=== PATIENT | female | born 1955 | race Caucasian/White ===

== ENCOUNTER → 2017-08-18 10:30 | Outpatient (CLI) | payer OTHER, SELFPAY ==
[2017-08-23 14:00] LABS: HPV Reflexed? NOT INDICATED
== END ==
PROVIDERS: Family Provider Family Medicine; PCP Family Medicine; Visit Provider Obstetrics & Gynecology
DX: Z12.4 Encounter for screening for malignant neoplasm of cervix (principal)
CPT/HCPCS: 88175; G0145

== ENCOUNTER → 2017-09-18 09:44 | Outpatient (CLI) | payer OTHER, SELFPAY ==
--- NOTE | 2017-09-18 09:47 | HPBI_ITS ---
MAMMOGRAPHY - BILATERAL SCREENING REASON FOR EXAM: Female, 62 years old. Routine annual screening examination. PERTINENT HISTORY: Grandmother with breast cancer. TECHNIQUE: Digital bilateral breast jesús (3D mammographic acquisition) in the CC and MLO projections. 2-D mediolateral oblique (MLO) and craniocaudad (CC) views of both breasts were obtained. CAD: Full Field Digital Mammography with Computer Added Detection was performed. COMPARISON: Comparison is made with prior study dated June 27, 2014 and June 20, 2013. FINDINGS: Breast Composition: There are scattered areas of fibroglandular density. There are no dominant masses or suspicious calcifications. No other significant abnormalities are identified. There has been no significant change since the prior study. HPBI/SCREENING MAMM (CAD), BILAT IMPRESSION: Stable bilateral screening mammogram. Yearly follow-up mammogram recommended. (A) ASSESSMENT CATEGORY: BIRADS Category 1: Negative. A letter regarding these results will be sent to the patient by the facility within 30 days. Approximately 10% of breast cancers are not detected by mammography. A normal mammogram should not delay biopsy of a clinically suspicious abnormality. [id number] Electronically Signed: Alfie Barrera MD at 11:31 EST Tel [phone], Service support ,
== END ==
PROVIDERS: Family Provider Family Medicine; PCP Family Medicine; Visit Provider Obstetrics & Gynecology
DX: Z12.31 Encounter for screening mammogram for malignant neoplasm of breast (principal)
CPT/HCPCS: 77063; 77067

== ENCOUNTER → 2018-10-24 | Outpatient (CLI) | payer OTHER, SELFPAY ==
[2018-10-29 10:13] LABS: HPV Reflexed? NOT INDICATED
== END | disposition home or self-care (01) ==
PROVIDERS: Visit Provider Obstetrics & Gynecology
DX: Z12.4 Encounter for screening for malignant neoplasm of cervix (principal)
CPT/HCPCS: 88175; G0145

== ENCOUNTER → 2018-11-20 | Outpatient (CLI) | payer OTHER, SELFPAY ==
--- NOTE | 2018-11-20 12:38 | BI_ITS ---
MAMMOGRAPHY - BILATERAL SCREENING REASON FOR EXAM: Female, 63 years old. Routine annual screening examination. PERTINENT HISTORY: Grandmother with breast cancer. TECHNIQUE: Digital bilateral breast jesús (3D mammographic acquisition) in the CC and MLO projections. 2-D mediolateral oblique (MLO) and craniocaudad (CC) views of both breasts were obtained. CAD: Full Field Digital Mammography with Computer Added Detection was performed. COMPARISON: Comparison is made with prior study dated September 18, 2017 and June 27, 2014. FINDINGS: Breast Composition: There are scattered areas of fibroglandular density. There are no dominant masses or suspicious calcifications. No other significant abnormalities are identified. There has been no significant change since the prior study. BI/SCREENING MAMM (CAD), BILAT IMPRESSION: Stable bilateral screening mammogram. Yearly follow-up mammogram recommended. (A) ASSESSMENT CATEGORY: BIRADS Category 1: Negative. A letter regarding these results will be sent to the patient by the facility within 30 days. Approximately 10% of breast cancers are not detected by mammography. A normal mammogram should not delay biopsy of a clinically suspicious abnormality. [id number] Electronically Signed: Alfie Barrera, at 14:18 EDT , Service support ,
== END | disposition home or self-care (01) ==
LOC: OPBI 12:36
PROVIDERS: Family Provider Family Medicine; PCP Family Medicine; Referring Provider Obstetrics & Gynecology; Visit Provider Obstetrics & Gynecology
DX: Z12.31 Encounter for screening mammogram for malignant neoplasm of breast (principal)
CPT/HCPCS: 77063; 77067

== ENCOUNTER 2018-12-05 12:13 | Emergency (ER) | payer OTHER, SELFPAY ==
[2018-12-05 12:14] VITALS: BP 221/117; PULSE 107; RESP 24; TEMP 36.8; O2SAT 96; BMI 55.7
[2018-12-05 12:28] VITALS: O2SAT 97
--- NOTE | 2018-12-05 12:29 | EKG12_ITS ---
Test Reason : SOB Blood Pressure : / mmHG Vent. Rate : 090 BPM Atrial Rate : 576 BPM P-R Int : 000 ms QRS Dur : 088 ms QT Int : 360 ms P-R-T Axes : 000 -04 019 degrees QTc Int : 440 ms Normal sinus rhythm Normal ECG Confirmed by LELA VARGAS ([id number]), publication editor JIMBO LORENZO ([id number]) on 12/13/2018 9:25:47 AM Referred By: BERNADETTE Confirmed By:LELA VARGAS
--- NOTE | 2018-12-05 12:32 | RAD_ITS ---
STUDY: X-RAY CHEST REASON FOR EXAM: Female, 63 years old. Stress of breath/dyspnea. Lower extremity edema. TECHNIQUE: Single AP portable view of the chest. COMPARISON: Comparison is made with prior study dated January 29, 2014. FINDINGS: EKG electrodes are seen. There is evidence of vascular congestion and mild degree of CHF. There is no demonstrated pleural abnormality. There is mild cardiac enlargement. Normal mediastinum and laura. Normal visualized pulmonary arteries. Normal visualized aortic arch and descending thoracic aorta. Normal visualized thoracic spine. Normal visualized ribs, clavicles, and shoulders. There is no demonstrated abnormality of the visualized soft tissue structures of the upper abdomen. RAD/Chest 1 View (Portable) IMPRESSION: Vascular congestion and mild CHF. Mild cardiomegaly. Electronically Signed: Alfie Barrera, at 13:00 EDT , Service support ,
[2018-12-05 12:35] VITALS: BP 136/109; PULSE 99; RESP 20; O2SAT 96
[2018-12-05 13:03] LABS: Absolute Lymphocyte Count 2.57 X10^3/ul (0.83-4.51); Absolute Neutrophil Count 4.6 X10^3/uL (2.0-7.7); Basophil# 0.02 X10^3/uL; Basophil% 0.3 % (0-1); Eosinophil# 0.21 X10^3/uL; Eosinophils% 2.6 % (0-5); Hematocrit 39.6 % (37-47); Hemoglobin 12.5 g/dl (12.0-15.0); Lymphocyte # 2.57 X10^3/ul (4.0); Lymphocyte % 32.2 % (19-41); Mean Corp Hgb Conc 31.6 g/gl (32-36); Mean Corpuscular Hgb 26.8 pg (27.0-32.0); Monocyte# 0.56 X10^3/uL; Neutrophil # 4.57 X10^3/uL (2.7-7.7); Neutrophil % 57.4 % (47-70); Platelet Count 252 K/mm3 (150-450); RBC Distribution Width CV 13.7 % (11.6-14.6); RBC Distribution Width SD 41.9 fl (35.1-43.9); Red Blood Count 4.66 M/mm3 (4.2-5.4)
[2018-12-05 13:07] LABS: POSITIVE COUNT NO; POSITIVE DIFFERENTIAL NO; POSITIVE MORPHOLOGY NO
[2018-12-05 13:30] LABS: BNP,B-Type NATRIURETIC PEPTIDE 67.8 pg/mL (0-100)
--- NOTE | 2018-12-05 13:42 | ED.DCSUM_ITS ---
- ER Visit Summary Date of Service: 12/05/18 Chief Complaint: Shortness of breath History of Present Illness: The patient is a [address] Walter Langley. She reports she has shortness of breath began 3 days ago. Is gradually gotten worse. States that she noticed that she is short of breath with exertion last week walking up inclines. Now she is short of breath even walking around the house. She denies any paroxysmal nocturnal dyspnea. However, she does report she had swelling in her legs bilaterally for the past week that is been gradually increasing. She notes a 7 pound weight gain in the past week. She has never had anything like this before. Patient denies any fever or chills. She denies chest pain. She has a chronic cough that is unchanged. Physical Examination: Vitals: Stable. Afebrile. General: Well-nourished and well-developed. Head: Normocephalic atraumatic. Neck: Supple, no lymphadenopathy. No JVD. Nontender. Cardiovascular: Regular rate and rhythm. No murmurs. Respiratory: No respiratory distress. Clear to auscultation bilaterally. Abdominal: Soft, nontender, nondistended, normal bowel sounds. No guarding, rebound, or peritoneal signs. Back: Nontender. Extremities: Nontender, 2+ edema in her lower extremity bilaterally. Skin: Normal color, no rash. Neurologic: Alert and oriented ?3. Cranial nerves II through XII are intact. Normal strength and sensation. Psych: Normal affect. Test Results: EKG is sinus at [address] changes. CBC is normal. Chest x-ray shows cardia megaly, vascular congestion, and mild CHF. BMP is normal. LFTs are normal. Troponin is negative. PT KETTLE COORDINATOR is 67.8. C Emergency Department Course and Treatment: Patient is resting comfortably. She was given a dose of Lasix IV. She was given aspirin p.o. Treatment Plan: The patient was discussed with Dr. Haq. She is comfortable working this up as an outpatient. Patient is happy with this plan. She will be discharged on Lasix 20 mg p.o. every morning. Instructed to follow-up with Dr. Walter Langley in 2 days for another exam. Return to emerge department for any worsening difficulty breathing, chest pain, or other concerns. Disposition: To home in improved and stable condition. Impression: 1.. CHF, new onset. This note was generated with [employer]com[employer] software. It may contain incorrect words, spelling, and punctuation that were not noted in review of the chart prior to signing ED Disposition - Plan for ED Patient: Disposition: Home or Assisted Living Instructions: ED CHF General Prescriptions: Furosemide [Lasix] 20 mg PO DAILY #5 tablet Referrals: Walter Langley MD [Primary Care Provider] - 2 Days
[2018-12-05 14:22] LABS: ALB/GLOB Ratio 0.9 RATIO (0.9-2.4); AST(SGOT) 25 U/L (15-37); Alanine Aminotransfer ALT/SGPT 26 U/L (13-56); Albumin, Serum 3.5 g/dL (3.2-5.0); Alkaline Phosphatase 106 U/L (45-117); Anion Gap 5 (5-15); BUN 15 mg/dL (7-18); BUN/Creat Ratio 18.5 RATIO (10-20); Calcium,Total 8.9 mg/dL (8.5-10.1); Chloride 106 mmol/L (98-107); Creatinine, Serum 0.81 mg/dL (0.55-1.02); EST Glomerular Filtration Rate 75 mL/min (>60); Est Glom Filt Rate - Afr Amer 91 mL/min (>60); Estimated Creatinine Clearance 63.14 ml/min; Globulin 4.1 g/dL (2.2-4.2); Glucose 90 mg/dL (74-106); Potassium 4.1 mmol/L (3.5-5.1); Protein, Total 7.6 g/dL (6.4-8.2); Sodium Level 138 mmol/L (136-145)
[2018-12-05] MEDS: Furosemide 40 MG/4 ML Vial IV (14:27)
[2018-12-05 14:56] VITALS: PULSE 84; RESP 20
[2018-12-05 15:44] VITALS: BP 105/84; PULSE 90; RESP 18; RESP 20; O2SAT 97
[2018-12-07 16:13] LABS: Thyroid Stim Hormone (TSH) 2.74 uIU/mL (0.358-3.74)
== END 2018-12-05 15:51 | disposition home or self-care (01) ==
LOC: ED 12:59
PROVIDERS: Emergency Provider Emergency Medicine; Family Provider Family Medicine; PCP Family Medicine
DX: I11.0 Hypertensive heart disease with heart failure (principal); I50.9 Heart failure, unspecified; G25.81 Restless legs syndrome; Z79.899 Other long term (current) drug therapy
CPT/HCPCS: 71045; 80053; 83880; 84443; 84484; 85025; 93005; 96374; 99285; J1940

== ENCOUNTER → 2018-12-18 | Outpatient (CLI) | payer OTHER, SELFPAY ==
[2018-12-05 12:14] VITALS: BMI 55.7
--- NOTE | 2018-12-18 13:54 | ECHOCS_ITS ---
Reason For Study: Dyspnea Procedure This was a 2D Doppler, Color Flow transthoracic echocardiogram. The study was technically difficult. Contrast injection was performed. Exam performed in department. Left Ventricle Normal LV size. Left ventricular systolic function is normal. The estimated ejection fraction is 65 %. There is evidence of diastolic dysfunction. No regional wall motion abnormalities noted. Right Ventricle Normal RV size. Normal systolic function. Atria The left atrium is mildly enlarged. Normal right atrium. No doppler evidence for ASD. Mitral Valve There is no mitral annular calcification. Normal mitral valve. Trivial mitral valve insufficiency. Tricuspid Valve Normal tricuspid valve. Mild to moderate (1-2+) tricuspid valve insufficiency. Right ventricular systolic pressure estimated to be 38 mmHg. Aortic Valve Trisinus/trileaflet aortic valve. Mild focal aortic valve calcification. Pulmonic Valve The pulmonic valve is not well visualized. Trivial pulmonic valve insufficiency. Great Vessels Normal sized aortic root. Calcified aortic root. Pericardium/Pleural No pericardial effusion. Medication Diluted definity 2ml given slow IV push to enhance endocardial definition. MMode/2D Measurements & Calculations LVIDd: 4.2 cm IVSd: 1.4 cm LVOT diam: 2.0 cm LVIDs: 2.5 cm LVPWd: 1.2 cm RVDd: 4.4 cm FS: 40.6 % LVOT area: 3.1 cm2 Ao root diam: 3.4 cm LAV(MOD-bp): 49.8 ml LVAd ap4: 31.5 cm2 LAV(MOD-bp) Indexed: 20.6 ml/m2 EDV(MOD-sp4): 98.9 ml LAV(MOD-sp2): 54.9 ml EDV(sp4-el): 104.3 ml LAV(MOD-sp4): 42.8 ml LVAs ap4: 14.9 cm2 ESV(MOD-sp4): 30.2 ml ESV(sp4-el): 30.4 ml EF(MOD-sp4): 69.5 % EF(sp4-el): 70.9 % SV(MOD-sp4): 68.7 ml SV(sp4-el): 73.9 ml LA A4 area: 17.3 cm2 LA dimension(2D): 3.3 cm RA A4 area: 14.9 cm2 Doppler Measurements & Calculations MV E max patrick: 87.6 cm/sec Lat Peak E' Patrick: 9.5 cm/sec Med Peak E' Patrick: 5.7 cm/sec MV A max patrick: 99.5 cm/sec E/E' lat: 9.2 E/E' med: 15.3 MV E/A: 0.88 Ao V2 max: 228.1 cm/sec LV V1 max: 171.6 cm/sec SV(LVOT): 96.4 ml Ao max P.8 mmHg LV V1 max P.8 mmHg Ao V2 mean: 149.7 cm/sec LV V1 mean P.3 mmHg Ao mean P.2 mmHg LV V1 mean: 117.4 cm/sec Ao V2 VTI: 42.6 cm LV V1 VTI: 31.4 cm CYNTHIA(I,D): 2.3 cm2 CYNTHIA(V,D): 2.3 cm2 PA V2 max: 126.2 cm/sec TR max patrick: 294.8 cm/sec TR max P.8 mmHg Interpretation Summary The study was technically difficult. Contrast injection was performed. Left ventricular systolic function is normal. The estimated ejection fraction is 65 %. The left atrium is mildly enlarged. Trivial mitral valve insufficiency. Mild to moderate (1-2+) tricuspid valve insufficiency. Mild focal aortic valve calcification. Trivial pulmonic valve insufficiency. Calcified aortic root. Right ventricular systolic pressure estimated to be 38 mmHg. There is evidence of diastolic dysfunction. Ordering Physician: Walter Langley Referring Physician: Walter Langley Performed By: Jeanette Potts RDCS, RVKaylynn
== END | disposition home or self-care (01) ==
LOC: CVS 13:52
PROVIDERS: Family Provider Family Medicine; PCP Family Medicine; Referring Provider Family Medicine; Visit Provider Family Medicine
DX: R06.00 Dyspnea, unspecified (principal)
CPT/HCPCS: 93306; Q9957; A4216; C8929

== ENCOUNTER → 2019-01-03 | Outpatient (CLI) | payer OTHER, SELFPAY ==
[2018-12-05 12:14] VITALS: BMI 55.7
== END | disposition home or self-care (01) ==
LOC: SL 21:54
PROVIDERS: Family Provider Family Medicine; PCP Family Medicine; Referring Provider Family Medicine; Visit Provider Family Medicine
DX: G47.33 Obstructive sleep apnea (adult) (pediatric) (principal)
CPT/HCPCS: 95810

== ENCOUNTER → 2019-02-06 | Outpatient (CLI) | payer OTHER, SELFPAY | END | disposition home or self-care (01) | LOC: SL 23:18 | PROVIDERS: Family Provider Family Medicine; PCP Family Medicine; Visit Provider Family Medicine | DX: G47.33 Obstructive sleep apnea (adult) (pediatric) (principal) | CPT/HCPCS: 95811 ==

== ENCOUNTER → 2019-02-25 10:58 | Outpatient (CLI) | payer OTHER, SELFPAY ==
--- NOTE | 2019-02-25 11:09 | RAD_ITS ---
STUDY: X-RAY - LEFT KNEE REASON FOR EXAM: Female, 63 years old. Left knee pain TECHNIQUE: 4 view(s) of the knee. COMPARISON: None. FINDINGS: Normal visualized distal femur. Normal visualized proximal tibia and fibula. Normal proximal tibiofibular articulation. Normal medial femorotibial compartment. Normal lateral femorotibial compartment. Normal patellofemoral articulation. The soft tissue structures are unremarkable. RAD/Knee 4 or More Views IMPRESSION: Normal x-ray examination of the knee. Electronically Signed: Lacey Lopez, at 19:29 EDT Tel , Service support ,
== END ==
PROVIDERS: Family Provider Family Medicine; PCP Family Medicine; Referring Provider Family Medicine; Visit Provider Family Medicine
DX: M25.569 Pain in unspecified knee (principal)
CPT/HCPCS: 73564

== ENCOUNTER → 2019-04-25 | Outpatient (CLI) | payer MEDICARE, OTHER, SELFPAY ==
[2019-04-25 13:06] LABS: ALB/GLOB Ratio 0.8 RATIO (0.9-2.4); AST(SGOT) 17 U/L (15-37); Alanine Aminotransfer ALT/SGPT 27 U/L (13-56); Albumin, Serum 3.3 g/dL (3.2-5.0); Alkaline Phosphatase 103 U/L (45-117); Anion Gap 7 (5-15); BUN 19 mg/dL (7-18); BUN/Creat Ratio 23.5 RATIO (10-20); Calcium,Total 9.2 mg/dL (8.5-10.1); Chloride 104 mmol/L (98-107); Cholesterol 183 mg/dL (200); Creatinine, Serum 0.81 mg/dL (0.55-1.02); EST Glomerular Filtration Rate 76 mL/min (>60); Est Glom Filt Rate - Afr Amer 91 mL/min (>60); Globulin 4.3 g/dL (2.2-4.2); Glucose 114 mg/dL (74-106); High Density Lipoprotein 52 mg/dL; Potassium 3.8 mmol/L (3.5-5.1); Protein, Total 7.6 g/dL (6.4-8.2); Sodium Level 137 mmol/L (136-145); Triglycerides 123 mg/dL; Very Low Density Lipoprotein 25 mg/dL (5-40)
[2019-04-25 13:15] LABS: BNP,B-Type NATRIURETIC PEPTIDE 20.1 pg/mL (0-100)
== END | disposition home or self-care (01) ==
PROVIDERS: Family Provider Family Medicine; PCP Family Medicine; Referring Provider Family Medicine; Visit Provider Family Medicine
DX: I11.9 Hypertensive heart disease without heart failure (principal)
CPT/HCPCS: 36415; 80053; 80061; 83880

== ENCOUNTER 2019-07-07 09:50 | Emergency (ER) | payer MEDICARE, OTHER, SELFPAY ==
[2019-07-07] VITALS (7 sets, daily range): BP systolic 118–178; BP diastolic 69–85; PULSE 61–94; RESP 12–20; TEMP 36.7; O2SAT 95–97; BMI 55.3
--- NOTE | 2019-07-07 10:32 | EKG12_ITS ---
Test Reason : REPEAT EKG Blood Pressure : / mmHG Vent. Rate : 060 BPM Atrial Rate : 060 BPM P-R Int : 176 ms QRS Dur : 084 ms QT Int : 402 ms P-R-T Axes : 044 000 016 degrees QTc Int : 402 ms Sinus rhythm with Premature atrial complexes in a pattern of bigeminy Otherwise normal ECG Confirmed by RACHEL EVERETT, HA ([id number]), medical transcription editor NIMO RIOJAS ([id number]) on 07/11/2019 8:47:59 AM Referred By: SILVIA Confirmed By:HA RAMOS MD
--- NOTE | 2019-07-07 10:33 | ED.VISSUMM ---
- ER Visit Summary Date of Service: 07/07/19 Chief Complaint: Chest pain History of Present Illness: The patient is a 64 F who presents with chest pain that began this morning when she woke up. Patient describes the pain is a dull pressure over the substernal area. Patient denies any radiation of the pain. Patient states the pain is worse with activities. Patient states nothing seems to help. Patient admits to mild episode of nausea but denies any vomiting. Patient admits to some mild dizziness. Patient denies any diaphoresis. Patient denies any shortness of breath or cough. Patient denies any complications. Patient has a history of hypertension and a family history of coronary artery disease. Patient denies any other cardiac or PE risk factors. Physical Examination: Vital signs are stable. Patient is afebrile. Patient is in no acute distress. Oral mucosa is pink and moist. Neck is supple. Trachea is midline. There is no JVD. Heart was regular rate and rhythm. Lungs are clear and equal bilaterally. There is reproducible tenderness over the sternum. Abdomen is soft. Bowel sounds are normal. There is no tenderness. Cranial nerves II through XII are intact. There are no focal motor or sensory deficits noted. Extremities are intact. There is no calf tenderness or edema. Test Results: EKG showed normal sinus rhythm with a rate of 93. There are no acute ST or T wave changes noted. CBC basic metabolic profile, and troponin were obtained were all within normal limits. Portable chest x-ray was obtained. There is no acute cardiopulmonary process noted. Emergency Department Course and Treatment: Patient was given aspirin and sublingual nitroglycerin here. Since her symptoms began only 3 hours prior to arrival, a delta troponin was obtained. This was normal. Repeat EKG was obtained and was unchanged compared to previous. Patient is feeling better on reevaluation. Patient was instructed to follow-up with her primary care physician in 5 to 7 days. Patient understood and was agreeable with the plan. All questions were answered. Disposition: Discharge home Impression: Chest pain This note was generated with [employer] dictation software. It may contain incorrect words, spelling, and punctuation that were not noted in review of the chart prior to signing ED Disposition - Plan for ED Patient: Disposition: Home or Assisted Living Diagnosis: Chest pain Instructions: CHEST PAIN, Uncertain Cause Referrals: Walter Estrada MD [Primary Care Provider] - 5-7 Days
--- NOTE | 2019-07-07 10:40 | RAD_ITS ---
STUDY: X-RAY CHEST REASON FOR EXAM: Female, 64 years old. CHEST PAIN TECHNIQUE: Single frontal view of the chest. COMPARISON: December 05, 2018 FINDINGS: There is no new focal consolidation There is cardiomegaly. Normal mediastinum and laura. Normal visualized pulmonary arteries. Normal visualized aortic arch and descending thoracic aorta. There are diffuse degenerative changes of the visualized thoracic spine. Normal visualized ribs, clavicles, and shoulders. There is no demonstrated abnormality of the visualized soft tissue structures of the upper abdomen. RAD/Chest 1 View (Portable) IMPRESSION: Cardiomegaly. Electronically Signed: Kasia Yin MD at 10:53 EST Tel , Service support ,
[2019-07-07 11:05] LABS: Absolute Lymphocyte Count 4.28 X10^3/uL (0.83-4.51); Absolute Neutrophil Count 4.3 X10^3/uL (2.0-7.7); Basophil# 0.04 X10^3/uL; Basophil% 0.4 % (0-1); Eosinophil# 0.44 X10^3/uL; Eosinophils% 4.5 % (0-5); Hematocrit 41.8 % (37-47); Hemoglobin 13.4 g/dL (12.0-15.0); Lymphocyte # 4.28 X10^3/ul (4.0); Lymphocyte % 43.3 % (19-41); Mean Corp Hgb Conc 32.1 g/dL (32-36); Mean Corpuscular Hgb 27.9 pg (27.0-32.0); Mean Corpuscular Volume 86.9 fL (81-99); Mean Platelet Vol. 11.3 fl (6.2-12.0); Monocyte% 8.1 % (0-10); NRBC Flagged by Analyzer 0 % (0-5); Neutrophil # 4.28 X10^3/uL (2.7-7.7); Neutrophil % 43.3 % (47-70); Platelet Count 292 K/mm3 (150-450); RBC Distribution Width CV 13.5 % (11.6-14.6); RBC Distribution Width SD 43.2 fl (35.1-43.9); Red Blood Count 4.81 M/mm3 (4.2-5.4); White Blood Count 9.9 K/mm3 (4.4-11.0)
[2019-07-07] MEDS: Aspirin 81 MG TAB.CHEW 324 MG PO (11:10)
[2019-07-07] MEDS: Nitroglycerin SL (ED/IMG/CATH) 0.4 MG TABLET SUBLINGUAL ×3 (11:11→11:39)
[2019-07-07 11:13] LABS: Anion Gap 6 (5-15); BUN 17 mg/dL (7-18); BUN/Creat Ratio 16.8 RATIO (10-20); Calcium,Total 9.6 mg/dL (8.5-10.1); Chloride 105 mmol/L (98-107); Creatinine, Serum 1.01 mg/dL (0.55-1.02); EST Glomerular Filtration Rate 58 mL/min (>60); Est Glom Filt Rate - Afr Amer 71 mL/min (>60); Estimated Creatinine Clearance 49.97 ml/min; Glucose 102 mg/dL (74-106); Potassium 3.7 mmol/L (3.5-5.1); Sodium Level 139 mmol/L (136-145)
--- NOTE | 2019-07-07 11:34 | EKG12_ITS ---
Test Reason : CP Blood Pressure : / mmHG Vent. Rate : 093 BPM Atrial Rate : 093 BPM P-R Int : 186 ms QRS Dur : 080 ms QT Int : 344 ms P-R-T Axes : 043 -05 031 degrees QTc Int : 427 ms Normal sinus rhythm Normal ECG Confirmed by HA RAMOS MD ([id number]), managing editor NIMO RIOJAS ([id number]) on 07/11/2019 8:47:46 AM Referred By: PHILIPPE Confirmed By:HA RAMOS MD
== END 2019-07-07 14:05 | disposition home or self-care (01) ==
PROVIDERS: Emergency Provider Emergency Medicine; Family Provider Family Medicine; PCP Family Medicine
DX: R07.9 Chest pain, unspecified (principal); R11.0 Nausea; R42 Dizziness and giddiness; I11.0 Hypertensive heart disease with heart failure; I50.9 Heart failure, unspecified; G25.81 Restless legs syndrome; G47.33 Obstructive sleep apnea (adult) (pediatric); Z79.82 Long term (current) use of aspirin; Z79.899 Other long term (current) drug therapy; Z82.49 Family history of ischemic heart disease and other diseases of the circulatory system
CPT/HCPCS: 71045; 80048; 84484; 85025; 93005; 99284; A4216

== ENCOUNTER → 2019-11-22 11:21 | Outpatient (CLI) | payer MEDICARE, OTHER, SELFPAY ==
[2019-07-07 09:50] VITALS: BMI 55.3
--- NOTE | 2019-11-22 11:42 | RAD_ITS ---
STUDY: X-RAY CHEST REASON FOR EXAM: Female, 64 years old. SOB TECHNIQUE: PA and lateral views of the chest. COMPARISON: Comparison is made with prior examination dated July 07, 2019. FINDINGS: Scattered calcified granulomas. The lungs are clear. There is no demonstrated pleural abnormality. There is mild cardiac enlargement. Normal mediastinum and laura. Normal visualized pulmonary arteries. There is atherosclerotic tortuosity of the aortic arch and descending thoracic aorta. There are diffuse degenerative changes of the visualized thoracic spine. Normal visualized ribs, clavicles, and shoulders. There is no demonstrated abnormality of the visualized soft tissue structures of the upper abdomen. RAD/Chest PA and Lateral IMPRESSION: Mild cardiomegaly. The lungs are clear. Electronically Signed: Alfie Barrera, at 12:27 EDT , Service support ,
[2019-11-22 12:56] LABS: BNP,B-Type NATRIURETIC PEPTIDE 35.3 pg/mL (0-100)
[2019-11-22 13:09] LABS: ALB/GLOB Ratio 0.9 RATIO (0.9-2.4); AST(SGOT) 23 U/L (15-37); Alanine Aminotransfer ALT/SGPT 26 U/L (13-56); Albumin, Serum 3.5 g/dL (3.2-5.0); Alkaline Phosphatase 105 U/L (45-117); Anion Gap 8 (5-15); BUN 18 mg/dL (7-18); BUN/Creat Ratio 22.2 RATIO (10-20); Calcium,Total 9.1 mg/dL (8.5-10.1); Chloride 104 mmol/L (98-107); Creatinine, Serum 0.81 mg/dL (0.55-1.02); EST Glomerular Filtration Rate 75 mL/min (>60); Est Glom Filt Rate - Afr Amer 91 mL/min (>60); Globulin 3.7 g/dL (2.2-4.2); Glucose 112 mg/dL (74-106); Potassium 4.5 mmol/L (3.5-5.1); Protein, Total 7.2 g/dL (6.4-8.2); Sodium Level 138 mmol/L (136-145); Thyroid Stim Hormone (TSH) 2.05 uIU/mL (0.358-3.74)
== END ==
PROVIDERS: PCP Family Medicine; Referring Provider Family Medicine; Visit Provider Family Medicine
DX: R06.02 Shortness of breath (principal); R60.9 Edema, unspecified; Z12.39 Encounter for other screening for malignant neoplasm of breast
CPT/HCPCS: 36415; 71046; 80053; 83880; 84443

== ENCOUNTER → 2019-12-03 10:03 | Outpatient (CLI) | payer MEDICARE, OTHER, SELFPAY ==
[2019-07-07 09:50] VITALS: BMI 55.3
--- NOTE | 2019-12-03 10:05 | BI_ITS ---
MAMMOGRAPHY - BILATERAL SCREENING REASON FOR EXAM: Female, 64 years old. Routine annual screening examination. PERTINENT HISTORY: Grandmother with breast cancer. TECHNIQUE: Digital bilateral breast bharath (3D mammographic acquisition) in the CC and MLO projections. 2-D mediolateral oblique (MLO) and craniocaudad (CC) views of both breasts were obtained. CAD: Full Field Digital Mammography with Computer Added Detection was performed. COMPARISON: Comparison is made with prior examination of November 20, 2018 and September 18, 2017. FINDINGS: Breast Composition: There are scattered areas of fibroglandular density. There are no dominant masses or suspicious calcifications. No other significant abnormalities are identified. There has been no significant change since the prior study. BI/SCREEN MAMM (CAD) W/BHARATH BILAT IMPRESSION: Stable bilateral screening mammogram. Yearly follow-up mammogram recommended. (A) ASSESSMENT CATEGORY: BIRADS Category 1: Negative. A letter regarding these results will be sent to the patient by the facility within 30 days. Approximately 10% of breast cancers are not detected by mammography. A normal mammogram should not delay biopsy of a clinically suspicious abnormality. [id number] Electronically Signed: Alfie Barrera, at 9:02 EDT , Service support ,
== END ==
PROVIDERS: PCP Family Medicine; Referring Provider Family Medicine; Visit Provider Family Medicine
DX: Z12.31 Encounter for screening mammogram for malignant neoplasm of breast (principal)
CPT/HCPCS: 77063; 77067

== ENCOUNTER → 2019-12-10 09:05 | Outpatient (CLI) | payer MEDICARE, OTHER, SELFPAY ==
[2019-07-07 09:50] VITALS: BMI 55.3
[2019-12-10 10:10] LABS: Anion Gap 4 (5-15); BUN 26 mg/dL (7-18); Calcium,Total 9.3 mg/dL (8.5-10.1); Chloride 103 mmol/L (98-107); Creatinine, Serum 1.13 mg/dL (0.55-1.02); EST Glomerular Filtration Rate 51 mL/min (>60); Est Glom Filt Rate - Afr Amer 62 mL/min (>60); Glucose 147 mg/dL (74-106); Potassium 4.8 mmol/L (3.5-5.1); Sodium Level 136 mmol/L (136-145)
== END ==
PROVIDERS: PCP Family Medicine; Visit Provider Family Medicine
DX: R60.9 Edema, unspecified (principal)
CPT/HCPCS: 36415; 80048

== ENCOUNTER → 2020-04-13 10:00 | Outpatient (CLI) | payer MEDICARE, OTHER, SELFPAY ==
[2019-07-07 09:50] VITALS: BMI 55.3
[2020-04-13 12:42] LABS: ALB/GLOB Ratio 0.8 RATIO (0.9-2.4); AST(SGOT) 23 U/L (15-37); Alanine Aminotransfer ALT/SGPT 25 U/L (13-56); Albumin, Serum 3.4 g/dL (3.2-5.0); Alkaline Phosphatase 104 U/L (45-117); Anion Gap 6 (5-15); BUN 19 mg/dL (7-18); BUN/Creat Ratio 21.3 RATIO (10-20); Calcium,Total 9.2 mg/dL (8.5-10.1); Chloride 104 mmol/L (98-107); Creatinine, Serum 0.89 mg/dL (0.55-1.02); EST Glomerular Filtration Rate 67 mL/min (>60); Est Glom Filt Rate - Afr Amer 81 mL/min (>60); Globulin 4.3 g/dL (2.2-4.2); Glucose 91 mg/dL (74-106); Potassium 4.1 mmol/L (3.5-5.1); Protein, Total 7.7 g/dL (6.4-8.2); Sodium Level 135 mmol/L (136-145)
== END ==
PROVIDERS: PCP Family Medicine; Visit Provider Family Medicine
DX: I10 Essential (primary) hypertension (principal)
CPT/HCPCS: 36415; 80053

== ENCOUNTER → 2020-09-30 08:02 | Outpatient (CLI) | payer MEDICARE, OTHER, SELFPAY ==
[2019-07-07 09:50] VITALS: BMI 55.3
[2020-09-30 10:27] LABS: Absolute Neutrophil Count 3.8 X10^3/uL (2.0-7.7); Basophil# 0.05 X10^3/uL; Basophil% 0.6 % (0-1); Eosinophil# 0.34 X10^3/uL; Hematocrit 40.7 % (37-47); Hemoglobin 12.8 g/dL (12.0-15.0); Lymphocyte % 41.3 % (19-41); Mean Corp Hgb Conc 31.4 g/dL (32-36); Mean Corpuscular Hgb 27.9 pg (27.0-32.0); Mean Corpuscular Volume 88.7 fL (81-99); Mean Platelet Vol. 11.1 fl (6.2-12.0); Monocyte# 0.73 X10^3/uL; Monocyte% 8.6 % (0-10); NRBC Flagged by Analyzer 0 % (0-5); Neutrophil # 3.81 X10^3/uL (2.7-7.7); Platelet Count 302 K/mm3 (150-450); RBC Distribution Width CV 13.9 % (11.6-14.6); Red Blood Count 4.59 M/mm3 (4.2-5.4); White Blood Count 8.5 K/mm3 (4.4-11.0)
[2020-09-30 11:15] LABS: ALB/GLOB Ratio 0.8 RATIO (0.9-2.4); AST(SGOT) 19 U/L (15-37); Alanine Aminotransfer ALT/SGPT 23 U/L (13-56); Albumin, Serum 3.5 g/dL (3.2-5.0); Alkaline Phosphatase 118 U/L (45-117); Anion Gap 6 (5-15); BUN 22 mg/dL (7-18); BUN/Creat Ratio 22.8 RATIO (10-20); Calcium,Total 8.9 mg/dL (8.5-10.1); Chloride 104 mmol/L (98-107); Cholesterol 198 mg/dL (200); Creatinine, Serum 0.96 mg/dL (0.55-1.02); EST Glomerular Filtration Rate 62 mL/min (>60); Est Glom Filt Rate - Afr Amer 74 mL/min (>60); Globulin 4.3 g/dL (2.2-4.2); Glucose 115 mg/dL (74-106); High Density Lipoprotein 49 mg/dL; Magnesium 2.1 mg/dL (1.6-2.6); Potassium 4.1 mmol/L (3.5-5.1); Protein, Total 7.8 g/dL (6.4-8.2); Sodium Level 138 mmol/L (136-145); Thyroid Stim Hormone (TSH) 4.14 uIU/mL (0.358-3.74); Triglycerides 138 mg/dL; Very Low Density Lipoprotein 28 mg/dL (5-40)
== END ==
PROVIDERS: PCP Family Medicine; Referring Provider Family Medicine; Visit Provider Family Medicine
DX: R00.2 Palpitations (principal); I10 Essential (primary) hypertension
CPT/HCPCS: 36415; 80053; 80061; 83735; 84443; 85025

== ENCOUNTER → 2020-11-30 10:03 | Outpatient (CLI) | payer MEDICARE, OTHER, SELFPAY ==
[2019-07-07 09:50] VITALS: BMI 55.3
[2020-11-30 13:06] LABS: Thyroid Stim Hormone (TSH) 2.46 uIU/mL (0.358-3.74)
== END ==
PROVIDERS: Family Medicine; PCP Family Medicine; Visit Provider Family Medicine
DX: E03.9 Hypothyroidism, unspecified (principal)
CPT/HCPCS: 36415; 84443

== ENCOUNTER → 2020-12-10 06:12 | Outpatient (CLI) | payer MEDICARE, OTHER, SELFPAY ==
[2020-12-02 07:32] VITALS: BMI 56.5
--- NOTE | 2020-12-10 16:54 | STRESSREP ---
Stress Test Report Pharmacologic myocardial perfusion stress test. 65-year-old lady with a history of hypertension, obesity, atrial fibrillation. Stress protocol: Resting EKG demonstrates sinus rhythm with a rate of 69 bpm normal intervals are noted resting blood pressure is 138/72 mmHg. 0.4 mg of regadenoson was infused per usual protocol followed by rapid intravenous saline flush injection continuous EKG monitoring was performed. The maximum heart rate attained was 88 bpm which was 57% of maximum predicted heart rate the maximum workload was 1 metabolic equivalent. At rest there were no ST or T wave changes noted to suggest abnormal flow reserve and at peak infusion nonspecific ST changes were noted with did not meet the criteria for ischemia. The final blood pressure was 144/88 mmHg. Myocardial perfusion protocol. 14.8 mCi of technetium 99m sestamibi was injected at rest. 0.4 mg of regadenoson was infused per usual protocol. At peak infusion 44.6 mCi of technetium 99m sestamibi was injected stress images were obtained stress and rest images were reconstructed in comparing the short axis vertical long and horizontal long axis. Gated images were also obtained. Perfusion SPECT analysis: Review of the stress images demonstrate a medium-sized defect noted involving the anterior wall. The septum lateral wall and inferior wall appeared to be well perfused. The resting images demonstrate an improvement in anterior wall perfusion suggesting anterior wall ischemia. No previous infarct is noted. Gated SPECT analysis: The gated ejection fraction is 74%. Conclusion: Pharmacologic myocardial perfusion stress test with evidence of anterior ischemia. Preserved ejection fraction.
== END ==
PROVIDERS: PCP Family Medicine; Referring Provider Internal Medicine Cardiovascular Disease; Visit Provider Internal Medicine Cardiovascular Disease
DX: I48.0 Paroxysmal atrial fibrillation (principal); R06.09 Other forms of dyspnea
CPT/HCPCS: 78452; 93017; A9500; A4216; J2785

== ENCOUNTER → 2020-12-21 12:39 | Outpatient (CLI) | payer MEDICARE, OTHER, SELFPAY ==
[2020-12-02 07:32] VITALS: BMI 56.5
--- NOTE | 2020-12-21 11:34 | RAD_ITS ---
STUDY: X-RAY CHEST REASON FOR EXAM: Female, 65 years old. Shortness of breath. TECHNIQUE: Frontal and lateral views of the chest. COMPARISON: 11/22/2019 FINDINGS: The lungs are clear and expanded. Stable healed granulomatous calcifications. There is no demonstrated pleural abnormality. Cardiomegaly unchanged. Normal mediastinum and laura. Normal visualized pulmonary arteries. Normal visualized aortic arch and descending thoracic aorta. Stable thoracic spondylosis. Normal visualized ribs, clavicles, and shoulders. There is no demonstrated abnormality of the visualized soft tissue structures of the upper abdomen. RAD/Chest PA and Lateral IMPRESSION: Stable cardiomegaly with no acute or active cardiopulmonary disease. Electronically Signed: Teo Valentino MD at 9:51 EDT , Service support ,
[2020-12-21 11:43] LABS: Absolute Lymphocyte Count 3.46 X10^3/uL (0.83-4.51); Basophil# 0.04 X10^3/uL; Basophil% 0.4 % (0-1); Eosinophil# 0.25 X10^3/uL; Eosinophils% 2.6 % (0-5); Hematocrit 40.6 % (37-47); Hemoglobin 12.8 g/dL (12.0-15.0); Lymphocyte # 3.46 X10^3/ul (0.83-4.51); Mean Corp Hgb Conc 31.5 g/dL (32-36); Mean Corpuscular Hgb 27.4 pg (27.0-32.0); Mean Corpuscular Volume 86.9 fL (81-99); Mean Platelet Vol. 10.8 fl (6.2-12.0); Monocyte# 0.83 X10^3/uL; Monocyte% 8.6 % (0-10); NRBC Flagged by Analyzer 0 % (0-5); Neutrophil # 4.97 X10^3/uL (2.7-7.7); Neutrophil % 51.9 % (47-70); Platelet Count 294 K/mm3 (150-450); RBC Distribution Width CV 13.8 % (11.6-14.6); RBC Distribution Width SD 43.9 fl (35.1-43.9); Red Blood Count 4.67 M/mm3 (4.2-5.4); White Blood Count 9.6 K/mm3 (4.4-11.0)
[2020-12-21 12:21] LABS: Anion Gap 5 (5-15); BUN 20 mg/dL (7-18); BUN/Creat Ratio 20.8 RATIO (10-20); Calcium,Total 9.6 mg/dL (8.5-10.1); Chloride 104 mmol/L (98-107); Creatinine, Serum 0.96 mg/dL (0.55-1.02); EST Glomerular Filtration Rate 62 mL/min (>60); Est Glom Filt Rate - Afr Amer 75 mL/min (>60); Glucose 90 mg/dL (74-106); Potassium 4.2 mmol/L (3.5-5.1); Sodium Level 138 mmol/L (136-145)
[2020-12-25 08:34] VITALS: BMI 56.5
== END ==
PROVIDERS: PCP Family Medicine; Referring Provider Internal Medicine Cardiovascular Disease; Visit Provider Internal Medicine Cardiovascular Disease
DX: R94.39 Abnormal result of other cardiovascular function study (principal); I48.0 Paroxysmal atrial fibrillation; I10 Essential (primary) hypertension; E78.5 Hyperlipidemia, unspecified
CPT/HCPCS: 36415; 71046; 80048; 85025

== ENCOUNTER → 2020-12-22 10:08 | Outpatient (CLI) | payer MEDICARE, OTHER, SELFPAY ==
[2019-07-07 09:50] VITALS: BMI 55.3
[2020-12-02 07:32] VITALS: BMI 56.5
--- NOTE | 2020-12-22 10:15 | BD_ITS ---
STUDY: DUAL ENERGY X-RAY ABSORPTIOMETRY / DXA REASON FOR EXAM: Female, 65 years old. N95.1 TECHNIQUE: Bone Mineral Density (BMD) measurements of lumbar spine and bilateral hips were obtained. COMPARISON: None. FINDINGS: Lumbar Spine (L1-L4): g/cm2 (1.527) / T-score (2.9) / Z-score (4.5) Findings are suggestive of normal bone density with a low fracture risk. Left Femur Total: g/cm2 (1.200) / T-score (1.5) / Z-score (2.8) Left Femoral Neck: g/cm2 (1.066) / T-score (0.2) / Z-score (1.7) Right Femur Total: g/cm2 (1.245) / T-score (1.9) / Z-score (3.2) Right Femoral Neck: g/cm2 (1.037) / T-score (0.0) / Z-score (1.5) BD/Dexa Bone Density Study IMPRESSION: The patient is considered normal as outlined below according to World Chandler Organization (WHO) criteria with a low fracture risk. Reference Information: The T-score is the number of standard deviations above or below the standard which is normal for young adults at their peak bone mineral density. The World Health Organization (WHO) interprets the T-scores as follows: Above -1 Normal bone density Between -1 and -2.5 Osteopenia Equal to / or below -2.5 Osteoporosis As a practical clinical guideline, osteopenia may be graded as follows: Mild -1 through -1.5 Moderate -1.6 through -2.0 Severe -2.1 through -2.4 The Z-score is the number of standard deviations above or below age-matched controls. A Z-score of less than -1.5 would be considered abnormal. References: 1. NIH Osteoporosis and Related Bone Diseases www osteo.org 2. International Society for Clinical Densitometry www iscd.org 3. National Osteoporosis Foundation www nof.org Electronically Signed: Alfie Barrera MD at 15:43 EDT , Service support ,
--- NOTE | 2020-12-22 10:49 | BI_ITS ---
MAMMOGRAPHY - BILATERAL SCREENING REASON FOR EXAM: Female, 65 years old. Routine annual screening examination. PERTINENT HISTORY: Grandmother with breast cancer. TECHNIQUE: Digital bilateral breast bharath (3D mammographic acquisition) in the CC and MLO projections. 2-D mediolateral oblique (MLO) and craniocaudad (CC) views of both breasts were obtained. CAD: Full Field Digital Mammography with Computer Added Detection was performed. COMPARISON: Comparison is made with prior study of 12/03/2019 and 11/20/2018. FINDINGS: Breast Composition: There are scattered areas of fibroglandular density. There are no dominant masses or suspicious calcifications. The previously seen well-defined nodule in the central slightly medial aspect of the left breast has decreased in size. It presently measures 5.2 mm. This most likely represents regression of a cyst. No other significant abnormalities are identified. There has been no significant change since the prior study. BI/SCRN MAMM (CAD)W/BHARATH BILAT IMPRESSION: Stable bilateral screening mammogram. Yearly follow-up mammogram recommended. (A) ASSESSMENT CATEGORY: BIRADS Category 2: Benign. A letter regarding these results will be sent to the patient by the facility within 30 days. Approximately 10% of breast cancers are not detected by mammography. A normal mammogram should not delay biopsy of a clinically suspicious abnormality. [id number] Electronically Signed: Alfie Barrera MD at 12:25 EDT , Service support ,
== END ==
PROVIDERS: PCP Family Medicine; Referring Provider Obstetrics & Gynecology; Visit Provider Obstetrics & Gynecology
DX: N95.1 Menopausal and female climacteric states (principal); Z12.31 Encounter for screening mammogram for malignant neoplasm of breast
CPT/HCPCS: 77063; 77067; 77080

== ENCOUNTER 2020-12-27 10:00 | Observation (INO) | payer MEDICARE, OTHER, SELFPAY ==
[2020-12-25 08:34] VITALS: BMI 56.5
[2020-12-27] VITALS (13 sets, daily range): BP systolic 109–165; BP diastolic 62–96; PULSE 54–115; RESP 14–25; TEMP 36.6–36.9; O2SAT 92–97; BMI 56.5; BMI 56.0
--- NOTE | 2020-12-27 10:18 | EKG12_ITS ---
Test Reason : CP Blood Pressure : / mmHG Vent. Rate : 110 BPM Atrial Rate : 100 BPM P-R Int : 000 ms QRS Dur : 080 ms QT Int : 330 ms P-R-T Axes : 000 003 031 degrees QTc Int : 446 ms Atrial fibrillation with rapid ventricular response Abnormal ECG Confirmed by RACHEL EVERETT, HA ([id number]), editorial writer JIMBO LORENZO ([id number]) on 12/31/2020 9:28:57 AM Referred By: ESSENCE/DESHAUN Confirmed By:HA RAMOS MD
--- NOTE | 2020-12-27 10:35 | RAD_ITS ---
EXAM: XR CHEST, 1 VIEW : 1955 CLINICAL INDICATION: chest pain TECHNIQUE: Frontal view of the chest. This report was created using [employer] report generation technology. COMPARISON: 12/21/2020 FINDINGS: LUNGS AND PLEURAL SPACES: Unremarkable. No consolidation or edema. No pneumothorax. No effusion. HEART: Unremarkable. Cardiac silhouette not enlarged. MEDIASTINUM: Central airways and mediastinal contour are unremarkable. BONES/JOINTS: Unremarkable. SOFT TISSUES: Unremarkable. RAD/Chest 1 View (Portable) IMPRESSION: No radiographic evidence of acute cardiopulmonary disease. at 1059 Reported and signed by: Ascencion James MD Electronically Signed: Ascencion James MD at 10:58 EDT Tel , Service support ,
[2020-12-27 10:50] LABS: Absolute Lymphocyte Count 3.47 X10^3/uL (0.83-4.51); Absolute Neutrophil Count 4.1 X10^3/uL (2.0-7.7); Basophil# 0.05 X10^3/uL; Basophil% 0.6 % (0-1); Eosinophils% 3.5 % (0-5); Hemoglobin 12.8 g/dL (12.0-15.0); Lymphocyte # 3.47 X10^3/ul (0.83-4.51); Lymphocyte % 40.2 % (19-41); Mean Corp Hgb Conc 31.2 g/dL (32-36); Mean Corpuscular Hgb 27.1 pg (27.0-32.0); Mean Corpuscular Volume 86.9 fL (81-99); Mean Platelet Vol. 11.2 fl (6.2-12.0); Monocyte% 8.1 % (0-10); NRBC Flagged by Analyzer 0 % (0-5); Neutrophil # 4.09 X10^3/uL (2.7-7.7); Neutrophil % 47.3 % (47-70); Platelet Count 279 K/mm3 (150-450); RBC Distribution Width CV 13.8 % (11.6-14.6); RBC Distribution Width SD 44.1 fl (35.1-43.9); Red Blood Count 4.72 M/mm3 (4.2-5.4); White Blood Count 8.6 K/mm3 (4.4-11.0)
[2020-12-27 11:10] LABS: Anion Gap 9 (5-15); BUN 22 mg/dL (7-18); BUN/Creat Ratio 19.8 RATIO (10-20); Calcium,Total 9.3 mg/dL (8.5-10.1); Chloride 103 mmol/L (98-107); Creatinine, Serum 1.11 mg/dL (0.55-1.02); EST Glomerular Filtration Rate 52 mL/min (>60); Est Glom Filt Rate - Afr Amer 63 mL/min (>60); Estimated Creatinine Clearance 44.86 ml/min; Glucose 104 mg/dL (74-106); Potassium 3.9 mmol/L (3.5-5.1); Sodium Level 138 mmol/L (136-145)
[2020-12-27 11:12] LABS: BNP,B-Type NATRIURETIC PEPTIDE 88.8 pg/mL (0-100)
[2020-12-27] MEDS: Metoprolol Tartrate 5 MG/5 ML Vial IV (11:13)
[2020-12-27] MEDS: Furosemide 40 MG/4 ML Vial IV (11:13)
--- NOTE | 2020-12-27 11:42 | ED.VIS.CHEST ---
HPI History of Present Illness Chief Complaint: Chest Pain Informant: patient Onset/Context/Timing Onset: Today Activity at onset: sudden and sleep Timing: Continuous Quality: Positive for Pressure Location: Substernal Current Severity: Moderate Maximum Severity: Moderate Worsened By: Exertion; Not Worsened By Movement of Arm, Movement of Torso, Eating, Palpation, Breathing and Coughing Relieved By: Nothing Associated Symptoms: Positive for Dyspnea; Negative for Nausea, Vomiting, Diaphoresis, Cough, Fever and Lightheadedness Narrative Narrative: Patient presents with midsternal chest discomfort. She was awakened sleep. She reports shortness of breath. Denies radiation. She denied diaphoresis, nausea or vomiting. She had similar presentation. She did have a recent stress test that was abnormal. She is scheduled for an outpatient cardiac catheterization by Dr. Ovidio Lambert for tomorrow. She is on an anticoagulant. She states she is compliant with her medications. She also reports swelling of her legs, which is not abnormal. Prior Similar Symptoms: Yes (Patient had abnormal stress test and is scheduled for cardiac catheterization tomorrow.) Recent Illness/Hospitalization: No CVD Risk Factors: Positive for Hypertension, Hypercholesterolemia and Smoking; Negative for Diabetes PE Risk Factors: Negative for Recent Travel/Surgery, Recent Immobilization, Prior DVT or PE, Cancer and OCP + Smoking + >/=35 TAD Risk Factors: Positive for Hypertension; Negative for Marfan's Syndrome and Family History [facility] Medical History Carotid artery stenosis Essential (primary) hypertension GERD (gastroesophageal reflux disease) Hyperlipidemia Obesity Obstructive sleep apnea Ovarian cyst Paroxysmal atrial fibrillation (10/2019) Home Medications aspirin [Aspir 81] 81 mg PO DAILY 12/05/18 [History Last Taken Unknown] cholecalciferol (vitamin D3) [Vitamin D3] 1,000 unit PO DAILY 12/05/18 [History Last Taken Unknown] lisinopril 10 mg PO DAILY 12/05/18 [History Last Taken Unknown] melatonin 6 mg PO QHS 07/07/19 [History Last Taken Unknown] multivitamin 1 tab PO DAILY 11/30/20 [History Last Taken Unknown] omeprazole 20 mg capsule,delayed release 20 mg PO DAILY 11/30/20 [History Last Taken Unknown] ropinirole 1 mg tablet 2 mg PO QHS tab 11/30/20 [History Last Taken Unknown] apixaban 5 mg tablet 5 mg PO BID tab 12/02/20 [History Last Taken Unknown] furosemide 40 mg tablet 40 mg PO DAILY tab 12/02/20 [History Last Taken Unknown] metoprolol tartrate 25 mg tablet 25 mg PO BID tab 12/02/20 [History Last Taken Unknown] calcium carbonate-vitamin D3 [Calcium 600 + D(3)] 1 tab PO DAILY 12/27/20 [History Last Taken Unknown] Allergy/AdvReac Type Severity Reaction Status Date / Time almond Allergy Rash Verified 12/27/20 10:03 Penicillins Allergy Rash Verified 12/27/20 10:03 Family History Mother Thyroid disorder Surgical History History of appendectomy History of tonsillectomy and adenoidectomy Social History (Updated 12/27/20 @ 11:[address] Lester Ayon MD) household members: spouse housing: house Smoking Status: Never smoker alcohol intake: current alcohol intake frequency: holidays/special occasions only substance use type: does not use ROS ROS ED Constitutional Constitutional ED: Denies chills, fever(s), subjective or sweats Eyes Eyes: Denies none, blurry vision or change in vision ENT ENT ED: Denies ear pain, rhinorrhea or sore throat Cardiovascular Cardiovascular: Reports as per HPI, chest pain, palpitations and racing heartbeat; Denies orthopnea or paroxysmal nocturnal dyspnea Respiratory/Chest Respiratory/Chest: Reports dyspnea, dyspnea on exertion and other Details: Patient sleeps in a lazy boy due to obstructive sleep apnea. ; Denies cough, orthopnea, paroxysmal nocturnal dyspnea or sputum Gastrointestinal Gastrointestinal: Denies abdominal pain, diarrhea, nausea or vomiting Genitourinary Genitourinary ED: Denies dysuria, hematuria or urinary frequency Musculoskeletal Musculoskeletal: Denies arthralgias, myalgias or neck pain Integumentary Denies Abrasions or rash Neurologic Neurologic: Denies headache(s), paresthesias or weakness Hematologic/Lymphatic Hematologic/Lymphatic: Denies easy bleeding or easy bruising EXAM Physical Exam Const Vital Signs: 12/27/20 10:01 12/27/20 10:15 12/27/20 11:01 Temperature 97.9 F Temperature Source Temporal Pulse Rate 115 H 115 H Respiratory Rate 25 H 21 H Respiratory Effort Normal Blood Pressure 165/84 H 156/96 H Blood Pressure Mean 111 116 Pulse Ox 96 97 Oxygen Delivery Method Room Air Room Air 12/27/20 12:00 12/27/20 12:13 12/27/20 12:20 Temperature Temperature Source Pulse Rate 63 62 63 Respiratory Rate 16 Respiratory Effort Blood Pressure 130/86 H 133/73 H 112/76 Blood Pressure Mean 100 Pulse Ox 96 Oxygen Delivery Method Room Air 12/27/20 12:27 Temperature Temperature Source Pulse Rate 65 Respiratory Rate 19 H Respiratory Effort Blood Pressure 109/64 Blood Pressure Mean 79 Pulse Ox 95 Oxygen Delivery Method Positive well nourished, well developed and obese General Appearance ED: well developed; Negative for pallor Nutritional Appearance: obese HEENT Reports moist mucous membranes HEENT Narrative: Posterior pharynx unremarkable. normocephalic and atraumatic Eyes PERRL and EOMs intact bilaterally General Eye ED: Negative for pale conjunctiva or scleral icterus Neck no lymphadenopathy, supple and no JVD Chest Wall inspection of chest normal Resp normal respiratory effort and clear to auscultation bilaterally Effort and Inspection: Negative for respiratory distress Cardio no murmurs; Negative for regular rate or regular rhythm Rate: tachycardic and other Other Details: Heart rate is fast and irregular. Monitor reveals atrial fibrillation. Peripheral Pulses: pulses 2+ throughout GI normal to inspection, nondistended, normoactive bowel sounds, soft to palpation and non-tender Back/Spine no CVA tenderness; Negative for no thoracic nor lumbar tenderness Extremity normal to inspection General Extremety ED: Yes edema; Negative for tenderness General Extremity: edema Neuro oriented x3, CN's II-XII intact bilaterally and no sensory deficits noted Sensorium / Orientation: awake and alert Psych mental status grossly normal Skin no rashes or lesions noted and no wounds General Skin Exam: Negative for jaundice or pallor Heart Score History: Moderately Suspicious ECG: Normal Age: >/= 65 years Risk Factors: 1 or 2 Risk Factors Troponin: </= Normal Limit Score: 4 MDM MDM MDM Narrative Medical decision making narrative: Patient presents with chest discomfort that woke her from sleep. This may be rate dependent since she is in A. fib with RVR. With her having recent abnormal stress test and scheduled for outpatient cardiac catheterization this may represent MT, non-STEMI versus angina versus other cause. Patient was treated with metoprolol for her rapid heart rate. When she was reassessed at 1145. My revealed a sinus rhythm with a ventricular rate of 61. Chest x-ray my interpretation reveals cardiomegaly otherwise unremarkable. Patient's pressure did not subside after metoprolol was administered and conversion to normal sinus rhythm. Nitroglycerin was ordered. Patient states her pressure resolved with the nitroglycerin. Since she had an abnormal stress test and is scheduled for a cardiac cath tomorrow and has a heart score of 4 will contact hospitalist for observation to PCU with serial enzymes. Hospitalist, Dr. Watkins will place consult to cardiology., Dr. Mc Lab Data Attestation: I reviewed the patient's lab results. Labs: Laboratory Results - last 24 hr 12/27/20 12/27/20 12/27/20 10:11 10:11 10:11 WBC 8.6 RBC 4.72 Hgb 12.8 Hct 41.0 MCV 86.9 MCH 27.1 MCHC 31.2 L RDW Std Deviation 44.1 H RDW Coeff of Nnamdi 13.8 Plt Count 279 MPV 11.2 Immature Gran % (Auto) 0.300 Neut % (Auto) 47.3 Lymph % (Auto) 40.2 [place] % (Auto) 8.1 Eos % (Auto) 3.5 Baso % (Auto) 0.6 Absolute Neuts (auto) 4.1 Absolute Lymphs (auto) 3.47 Nucleated RBC % 0 Sodium 138 Potassium 3.9 Chloride 103 Carbon Dioxide 26.0 Anion Gap 9 BUN 22 H Creatinine 1.11 H Estim Creat Clear Calc 44.86 Est GFR (MDRD) Af Amer 63 Est GFR (MDRD) Non-Af 52 L BUN/Creatinine Ratio 19.8 Glucose 104 Calcium 9.3 Troponin I < 0.015 B-Natriuretic Peptide 88.8 Radiography Chest X-Ray - ED: 1 View, Read by ED Physician (Interpreted by me at 1141.), Normal, Lungs, Mediastinum, Bony Structures, Chronic Changes and Cardiomegaly Rhythm Strip Rhythm Strip: A-fib Rate: 129 Ectopy: None EKG Initial EKG: Interpretation: Atrial Fibrillation Comments: Ventricular rate is 110. QRS duration 80 ms. QT durations are 30 ms. [place] is normal. The EKG is Critical Care Time Critical Care Time: Yes Critical care time (excluding procedures): 30-74 minutes (31), Including time spent: (History, physical examination, documentation, review of prior records, interpretation of laboratory results and chest x-ray, treatment for A. fib RVR, treatment for angina), Discussing w/Patient &/or Family/Cement Sprayer Helper, Discussing w/Consultants and Arranging Admission or Transfer Discharge Plan Dx/Rx/DC Orders Clinical Impression: Angina at rest, Atrial fibrillation with rapid ventricular response Disposition Disposition: Acute Care Hospital [facility]
[2020-12-27] MEDS: Nitroglycerin SL (ED/IMG/CATH) 0.4 MG TABLET SL ×2 (12:13→12:20)
--- NOTE | 2020-12-27 13:41 | PCM.HP.STD ---
Documented by User: Walter MONTGOMERY 12/27/20 14:17 HPI - General General Date of Admission: 12/27/20 HPI Narrative Patient is a 65-year-old female who presented to the ED at [facility] on 12/27/2020 with a chief complaint of nonexertional chest pain. Patient reports that this morning she was awoken from sleep from a crushing midsternal chest pain. Patient also endorses being short of breath with exertion. Patient reports that when the chest pain came on she attempted to alleviate with aspirin, with no relief. Of note, patient did have a recent stress test that was abnormal and was scheduled for a cardiac catheterization on 12/28/[address] Lambert. Patient endorses nonexertional chest pain, shortness of breath with exertion and lower extremity swelling for which she is on Lasix. Denies shortness of breath with rest, diaphoresis, orthopnea, paroxysmal nocturnal dyspnea, hemoptysis, sputum production, fever, chills, N/V/D. Initial EKG in the ED demonstrated A. fib with RVR that was converted to normal sinus rhythm with a ventricular rate of 61 after metoprolol was administered. Currently, vital signs are stable and patient is afebrile. CBC unremarkable. BMP demonstrates a mildly elevated creatinine at 1.11. Troponins not currently elevated. BNP is not elevated at 88.8. Recent TSH reading on 11/30 demonstrates a normal TSH at 2.46. Chest x-ray demonstrates mild cardiomegaly and slight blunting of the left costophrenic angle with no acute cardiopulmonary findings. Biophysics Teacher, Dr. Mc, consulted and agreed that patient should be placed on cardiac telemetry monitoring in PCU. Patient was given nitroglycerin, Lasix and metoprolol in the ED, to which patient's chest pain was amenable. [facility] Medical History (Updated 12/27/20 @ 14:00 by Walter MONTGOMERY) Carotid artery stenosis Essential (primary) hypertension GERD (gastroesophageal reflux disease) Hyperlipidemia Obesity Obstructive sleep apnea Ovarian cyst Paroxysmal atrial fibrillation (10/2019) Home Medications aspirin [Aspir 81] 81 mg PO DAILY 12/05/18 [History Last Taken Unknown] cholecalciferol (vitamin D3) [Vitamin D3] 1,000 unit PO DAILY 12/05/18 [History Last Taken Unknown] lisinopril 10 mg PO DAILY 12/05/18 [History Last Taken Unknown] melatonin 6 mg PO QHS 07/07/19 [History Last Taken Unknown] multivitamin 1 tab PO DAILY 11/30/20 [History Last Taken Unknown] omeprazole 20 mg capsule,delayed release 20 mg PO DAILY 11/30/20 [History Last Taken Unknown] ropinirole 1 mg tablet 2 mg PO QHS tab 11/30/20 [History Last Taken Unknown] apixaban 5 mg tablet 5 mg PO BID tab 12/02/20 [History Last Taken Unknown] furosemide 40 mg tablet 40 mg PO DAILY tab 12/02/20 [History Last Taken Unknown] metoprolol tartrate 25 mg tablet 25 mg PO BID tab 12/02/20 [History Last Taken Unknown] calcium carbonate-vitamin D3 [Calcium 600 + D(3)] 1 tab PO DAILY 12/27/20 [History Last Taken Unknown] Allergy/AdvReac Type Severity Reaction Status Date / Time almond Allergy Rash Verified 12/27/20 10:03 Penicillins Allergy Rash Verified 12/27/20 10:03 Family History Mother Thyroid disorder Surgical History History of appendectomy History of tonsillectomy and adenoidectomy Social History (Updated 12/27/20 @ 11:[address] Lester Ayon MD) household members: spouse housing: house Smoking Status: Never smoker alcohol intake: current alcohol intake frequency: holidays/special occasions only substance use type: does not use ROS Constitutional Constitutional: Denies anorexia, change in weight, chills, fatigue, fever(s), malaise, night sweats, weakness or other Eyes Eyes: Denies blurry vision, change in eye color, change in vision, discharge from eye(s), double vision, erythema, eye pain, loss of vision or other ENT HEENT: Denies abnormal hearing, dysphagia, ear pain, epistaxis, headache(s), hearing loss, nasal congestion, nasal discharge, post nasal drip, sinus pressure, sore throat or other Cardiovascular Cardiovascular: Reports chest pain, dyspnea on exertion and edema; Denies claudication, lightheadedness, orthopnea, palpitations, paroxysmal nocturnal dyspnea, rapid heart rate, syncope or other Respiratory/Chest Respiratory/Chest: Reports shortness of breath with exertion; Denies cough, dyspnea, excessive phlegm production, hemoptysis, productive cough, shortness of breath at rest, wheezing or other Gastrointestinal Gastrointestinal: Denies abdominal pain, coffee ground emesis, constipation, diarrhea, dyspepsia, hematemesis, hematochezia, loose stools, melena, nausea, vomiting or other Genitourinary Genitourinary: Denies burning urination, difficulty urinating, dysuria, hematuria, nocturia, urinary frequency, urinary hesitancy, urinary incontinence, urinary urgency or other Musculoskeletal Musculoskeletal: Denies arthralgias, back pain, joint pain, joint stiffness, joint swelling, myalgias, neck pain or other Neurologic Neurologic: Denies abnormal gait, abnormal speech, confusion, disequilibrium, dizziness, focal weakness, headache(s), numbness, paresthesias, seizure-like activity, seizures, syncope, tingling, tremor(s) or other Psychiatric Psychiatric: Denies anxiety, depression, homicidal ideation, suicidal ideation or other Endocrine Endocrinology: Denies change in body appearance, cold intolerance, excessive sweating, heat intolerance, polydipsia, polyuria or other Hematologic/Lymphatic Hematologic/Lymphatic: Denies anemia, easy bleeding, easy bruising, lymphadenopathy or other Allergic/Immunologic Allergic/Immunologic: Denies rhinitis, hives, eczemia, asthma or other Vital Signs Vital Signs Vital Signs: 12/27/20 10:01 12/27/20 10:15 12/27/20 11:01 Temperature 97.9 F Temperature Source Temporal Pulse Rate 115 H 115 H Respiratory Rate 25 H 21 H Respiratory Effort Normal Blood Pressure 165/84 H 156/96 H Blood Pressure Mean 111 116 Pulse Ox 96 97 Oxygen Delivery Method Room Air Room Air 12/27/20 12:00 12/27/20 12:13 12/27/20 12:20 Temperature Temperature Source Pulse Rate 63 62 63 Respiratory Rate 16 Respiratory Effort Blood Pressure 130/86 H 133/73 H 112/76 Blood Pressure Mean 100 Pulse Ox 96 Oxygen Delivery Method Room Air 12/27/20 12:27 Temperature Temperature Source Pulse Rate 65 Respiratory Rate 19 H Respiratory Effort Blood Pressure 109/64 Blood Pressure Mean 79 Pulse Ox 95 Oxygen Delivery Method Weight Weight: 339 lb 15.245 oz Body Mass Index (BMI) 56.5 Physical Exam Const alert, oriented x3 and no apparent distress HEENT normocephalic, head/scalp atraumatic and hearing grossly normal bilaterally Eyes PERRL, EOMs intact bilaterally and conjunctivae normal Neck no lymphadenopathy, supple and no JVD Resp normal respiratory effort, no retractions, no use of accessory muscles and clear to auscultation bilaterally Cardio regular rate, regular rhythm, no murmurs and no JVD GI normal to inspection, nondistended, normoactive bowel sounds, soft to palpation and non-tender Extremity normal to inspection Skin no rashes or lesions noted and no wounds Neuro CN's II-XII intact bilaterally Psych affect normal Results Lab / Micro Data Result Diagrams: 12/27/20 10:11 12/27/20 10:11 Labs: Laboratory Results - last 24 hr 12/27/20 12/27/20 12/27/20 10:11 10:11 10:11 WBC 8.6 RBC 4.72 Hgb 12.8 Hct 41.0 MCV 86.9 MCH 27.1 MCHC 31.2 L RDW Std Deviation 44.1 H RDW Coeff of Nnamdi 13.8 Plt Count 279 MPV 11.2 Immature Gran % (Auto) 0.300 Neut % (Auto) 47.3 Lymph % (Auto) 40.2 [place] % (Auto) 8.1 Eos % (Auto) 3.5 Baso % (Auto) 0.6 Absolute Neuts (auto) 4.1 Absolute Lymphs (auto) 3.47 Nucleated RBC % 0 Sodium 138 Potassium 3.9 Chloride 103 Carbon Dioxide 26.0 Anion Gap 9 BUN 22 H Creatinine 1.11 H Estim Creat Clear Calc 44.86 Est GFR (MDRD) Af Amer 63 Est GFR (MDRD) Non-Af 52 L BUN/Creatinine Ratio 19.8 Glucose 104 Calcium 9.3 Troponin I < 0.015 B-Natriuretic Peptide 88.8 Rhythm Strip Rhythm Strip: A-fib Rate: 129 Ectopy: None Assessment & Plan Assessment/Plan (1) Angina at rest: (2) Atrial fibrillation with rapid ventricular response: (3) Abnormal nuclear stress test: (4) Paroxysmal atrial fibrillation: (5) Essential (primary) hypertension: (6) GERD (gastroesophageal reflux disease): (7) Obesity: PLAN: Patient is a 65-year-old female presented to the ED at [facility] on 12/27/2020 with a chief complaint of nonexertional chest pain. Patient has already been scheduled for cardiac catheterization due to abnormal stress test,per Dr. Lambert , which is supposed to take place tomorrow 12/28/2020. Patient will be admitted to PCU for cardiac telemetry monitoring. 1) Chest pain 1 day history of nonexertional chest pain. Initial EKG in the ED demonstrated A. fib with RVR, converted to normal sinus rhythm with metoprolol in the ED. Patient's home medication regimen already includes aspirin, Eliquis and metoprolol. Currently, vital signs stable. Initial troponin not elevated. TSH 2.46, taken on 11/30/20. Stress test from 12/10/2020 demonstrated evidence of anterior ischemia with preserved ejection fraction at 74%. Echocardiogram from December 2018 demonstrated normal LV systolic function, an estimated EF of 65% and RVSP of 38 mmHg and no evidence of diastolic dysfunction. Plan; admit to PCU for cardiac telemetry monitoring, cardiology consulted, cardiac catheterization already scheduled for 12/[address] Lambert, continue metoprolol, Tylenol as needed, Zofran as needed. 2) A Fib w/ RVR As above. Already rate controlled on metoprolol and anticoagulated on Eliquis at home. 3) HTN Stable, home medication regimen includes Lasix, lisinopril and metoprolol. Plan; continue home medication regimen. 4) GERD Continue Protonix 5) Obesity class III Weight 339 pounds, BMI 56.6. DVT prophylaxis -hold home Eliquis in anticipation for catheterization CODE STATUS: Full code Patient seen by Walter Lockett PA-C, under the supervision of Dr. Watkins. Documented by User: Dr. [place] Watkins MD 12/27/20 14:55 HPI - General General Date of Admission: 12/27/20 [facility] Medical History (Updated 12/27/20 @ 14:00 by Walter MONTGOMERY) Carotid artery stenosis Essential (primary) hypertension GERD (gastroesophageal reflux disease) Hyperlipidemia Obesity Obstructive sleep apnea Ovarian cyst Paroxysmal atrial fibrillation (10/2019) Home Medications aspirin [Aspir 81] 81 mg PO DAILY 12/05/18 [History Last Taken Unknown] cholecalciferol (vitamin D3) [Vitamin D3] 1,000 unit PO DAILY 12/05/18 [History Last Taken Unknown] lisinopril 10 mg PO DAILY 12/05/18 [History Last Taken Unknown] melatonin 6 mg PO QHS 07/07/19 [History Last Taken Unknown] multivitamin 1 tab PO DAILY 11/30/20 [History Last Taken Unknown] omeprazole 20 mg capsule,delayed release 20 mg PO DAILY 11/30/20 [History Last Taken Unknown] ropinirole 1 mg tablet 2 mg PO QHS tab 11/30/20 [History Last Taken Unknown] apixaban 5 mg tablet 5 mg PO BID tab 12/02/20 [History Last Taken Unknown] furosemide 40 mg tablet 40 mg PO DAILY tab 12/02/20 [History Last Taken Unknown] metoprolol tartrate 25 mg tablet 25 mg PO BID tab 12/02/20 [History Last Taken Unknown] calcium carbonate-vitamin D3 [Calcium 600 + D(3)] 1 tab PO DAILY 12/27/20 [History Last Taken Unknown] Allergy/AdvReac Type Severity Reaction Status Date / Time almond Allergy Rash Verified 12/27/20 10:03 Penicillins Allergy Rash Verified 12/27/20 10:03 Family History Mother Thyroid disorder Surgical History History of appendectomy History of tonsillectomy and adenoidectomy Social History (Updated 12/27/20 @ 11:[address] Lester Ayon MD) household members: spouse housing: house Smoking Status: Never smoker alcohol intake: current alcohol intake frequency: holidays/special occasions only substance use type: does not use Results Lab / Micro Data Result Diagrams: 12/27/20 10:11 12/27/20 10:11 Charges/Coding Addendum Addendum: Dr. Watkins: I personally reviewed the chart and examined the patient, and agree with the above findings. 65-year-old female presents from home with chest pain. She had had an abnormal stress test on 12/10/2020 and was scheduled for cardiac cath tomorrow however she woke up this morning with chest pain that was somewhat similar to what necessitated having a stress test at the end of November. EKG today is still nonischemic and her initial troponin was negative, her pain is currently resolved. Will consult cardiology and hold her Eliquis in preparation for cardiac cath in the morning. Visit Charges OBSV E&M: 13590 Initial observation care L2
--- NOTE | 2020-12-27 14:39 | EKG12_ITS ---
Test Reason : CP ADMIT Blood Pressure : / mmHG Vent. Rate : 056 BPM Atrial Rate : 056 BPM P-R Int : 182 ms QRS Dur : 096 ms QT Int : 440 ms P-R-T Axes : -22 007 017 degrees QTc Int : 424 ms Sinus bradycardia Otherwise normal ECG When compared with ECG of 07-JUL-2019 11:39, Premature atrial complexes are no longer Present Confirmed by RACHEL EVERETT, HA ([id number]), brands editor JIMBO LORENZO ([id number]) on 12/29/2020 9:08:36 AM Referred By: HANH Confirmed By:HA RAMOS MD
--- NOTE | 2020-12-27 14:59 | CON.PCM.CA_ITS ---
Assessment & Plan Assessment/Plan (1) Angina at rest: PLAN: 65-year-old female, presented with symptoms of retrosternal chest pain with radiation to the jaw onto the left arm typical of angina She had paroxysmal A. fib she had palpitation with shortness of breath and mild lower extremity edema Converted to normal sinus with sinus bradycardia She has been off anticoagulation with Eliquis with a plan for elective left heart catheterization due to abnormal nuclear stress test Card exam essentially normal Initial set of cardiac biomarkers have been negative. Plan recommendations; 1. I reviewed the current medication will continue current treatment 2. Eliquis is on hold and we started on Lovenox We will hold the night dose of Lovenox in preparation for cardiac catheterization in the morning 3. We will check a fasting lipid in the morning 4. We will hold beta-himanshu, metoprolol due to sinus bradycardia. 5. We will continue aspirin and nitroglycerin in addition to lisinopril for hypertension. 6. Patient is scheduled for cardiac catheterization by her primary spooler rubber strand Dr. Lambert (2) Atrial fibrillation with rapid ventricular response: (3) Abnormal nuclear stress test: (4) Essential (primary) hypertension: (5) Hyperlipidemia: (6) GERD (gastroesophageal reflux disease): (7) Obesity: HPI Consult Data Date of Consult: 12/27/20 HPI Narrative Reason for Consultation: unstable angina, paroxysmal atrial fibrillation, Abnormal Stress test HPI Narrative: ELEN ARMAS, is a 65 F who presents [facility] Medical History (Updated 12/27/20 @ 14:00 by Walter MONTGOMERY) Carotid artery stenosis Essential (primary) hypertension GERD (gastroesophageal reflux disease) Hyperlipidemia Obesity Obstructive sleep apnea Ovarian cyst Paroxysmal atrial fibrillation (10/2019) Home Medications aspirin [Aspir 81] 81 mg PO DAILY 12/05/18 [History Last Taken Unknown] cholecalciferol (vitamin D3) [Vitamin D3] 1,000 unit PO DAILY 12/05/18 [History Last Taken Unknown] lisinopril 10 mg PO DAILY 12/05/18 [History Last Taken Unknown] melatonin 6 mg PO QHS 07/07/19 [History Last Taken Unknown] multivitamin 1 tab PO DAILY 11/30/20 [History Last Taken Unknown] omeprazole 20 mg capsule,delayed release 20 mg PO DAILY 11/30/20 [History Last Taken Unknown] ropinirole 1 mg tablet 2 mg PO QHS tab 11/30/20 [History Last Taken Unknown] apixaban 5 mg tablet 5 mg PO BID tab 12/02/20 [History Last Taken Unknown] furosemide 40 mg tablet 40 mg PO DAILY tab 12/02/20 [History Last Taken Unknown] metoprolol tartrate 25 mg tablet 25 mg PO BID tab 12/02/20 [History Last Taken Unknown] calcium carbonate-vitamin D3 [Calcium 600 + D(3)] 1 tab PO DAILY 12/27/20 [History Last Taken Unknown] Allergy/AdvReac Type Severity Reaction Status Date / Time almond Allergy Rash Verified 12/27/20 10:03 Penicillins Allergy Rash Verified 12/27/20 10:03 Family History Mother Thyroid disorder Surgical History History of appendectomy History of tonsillectomy and adenoidectomy Social History (Updated 12/27/20 @ 11:[address] Lester Ayon MD) household members: spouse housing: house Smoking Status: Never smoker alcohol intake: current alcohol intake frequency: holidays/special occasions only substance use type: does not use Physical Exam Narrative Patient seen and evaluated at bedside Symptoms of chest pain resolved She is alert, orientated x3, not in acute distress Review of the cardiac telemetry normal sinus rhythm in PCU. On arrival she has a A. fib with RVR converted to normal sinus Stable hemodynamically Cardiovascular examination S1-S2 regular, no murmur no systolic or diastolic murmur, no pericardial rub. Respiratory system examination; normal to auscultation Abdomen; soft Examination lower extremity no clubbing no cyanosis no lower extremity edema. Examination of central nervous system no focal neurological deficit. Objective Data Vital Signs: Vital Signs Temp Pulse Resp BP Pulse Ox 97.8 F 55 L 14 116/62 92 12/27/20 13:59 12/27/20 13:59 12/27/20 13:59 12/27/20 13:59 12/27/20 13:59 Oxygen Delivery Method Room Air Weight: 337 lb 1.388 oz Body Mass Index (BMI) 56.0 Lab / Micro Data Result Diagrams: 12/27/20 10:11 12/27/20 10:11 Labs: Laboratory Results - last 24 hr 12/27/20 12/27/20 12/27/20 10:11 10:11 10:11 WBC 8.6 RBC 4.72 Hgb 12.8 Hct 41.0 MCV 86.9 MCH 27.1 MCHC 31.2 L RDW Std Deviation 44.1 H RDW Coeff of Nnamdi 13.8 Plt Count 279 MPV 11.2 Immature Gran % (Auto) 0.300 Neut % (Auto) 47.3 Lymph % (Auto) 40.2 Glenn % (Auto) 8.1 Eos % (Auto) 3.5 Baso % (Auto) 0.6 Absolute Neuts (auto) 4.1 Absolute Lymphs (auto) 3.47 Nucleated RBC % 0 Sodium 138 Potassium 3.9 Chloride 103 Carbon Dioxide 26.0 Anion Gap 9 BUN 22 H Creatinine 1.11 H Estim Creat Clear Calc 44.86 Est GFR (MDRD) Af Amer 63 Est GFR (MDRD) Non-Af 52 L BUN/Creatinine Ratio 19.8 Glucose 104 Calcium 9.3 Troponin I < 0.015 B-Natriuretic Peptide 88.8 Rhythm Strip Rhythm Strip: A-fib Rate: 129 Ectopy: None Cardiology Labs/Tests 12/27/20 10:11: WBC 8.6, RBC 4.72, Hgb 12.8, Hct 41.0, MCV 86.9, MCH 27.1, MCHC 31.2 L, Plt Count 279, MPV 11.2, Immature Gran % (Auto) 0.300, Neut % (Auto) 47.3, Lymph % (Auto) 40.2, Glenn % (Auto) 8.1, Eos % (Auto) 3.5, Baso % (Auto) 0.6, Absolute Neuts (auto) 4.1, Nucleated RBC % 0 12/27/20 10:11: Sodium 138, Potassium 3.9, Chloride 103, Carbon Dioxide 26.0, Anion Gap 9, BUN 22 H, Creatinine 1.11 H, Est GFR (MDRD) Af Amer 63, Est GFR (MDRD) Non-Af 52 L, BUN/Creatinine Ratio 19.8, Glucose 104, Calcium 9.3, Troponin I < 0.015 12/27/20 10:11: B-Natriuretic Peptide 88.8 Rhythm: court recording monitor sinus rhythm with sinus bradycardia EKG: Initial EKG in the ER A. fib with RVR converted to normal sinus with sinus bradycardia.
[2020-12-27] MEDS: Enoxaparin 60 MG/0.6 ML Syringe SC (15:40)
[2020-12-27] MEDS: Pramipexole Di-HCl 1 MG Tablet PO (21:16)
[2020-12-27] MEDS: MELATONIN 3 MG TABLET 6 MG PO (21:16)
[2020-12-27] MEDS: Metoprolol Tartrate 25 MG Tablet PO (21:16)
[2020-12-28] VITALS (17 sets, daily range): BP systolic 103–155; BP diastolic 51–94; PULSE 52–66; RESP 16–17; TEMP 36.6–37; O2SAT 94–100
--- NOTE | 2020-12-28 05:55 | EKG12_ITS ---
Test Reason : AM EKG Blood Pressure : / mmHG Vent. Rate : 058 BPM Atrial Rate : 058 BPM P-R Int : 180 ms QRS Dur : 090 ms QT Int : 444 ms P-R-T Axes : -19 -01 017 degrees QTc Int : 435 ms Sinus bradycardia Otherwise normal ECG When compared with ECG of 27-DEC-2020 14:15, MANUAL COMPARISON REQUIRED, DATA IS UNCONFIRMED Confirmed by RACHEL EVERETT, HA ([id number]), web content editor JIMBO LORENZO ([id number]) on 12/29/2020 9:05:34 AM Referred By: HANH Confirmed By:HA RAMOS MD
[2020-12-28] MEDS: Pantoprazole Sodium 20 MG Tablet PO (06:17)
[2020-12-28] MEDS: Lisinopril 10 MG Tablet PO (06:17)
[2020-12-28] MEDS: Metoprolol Tartrate 25 MG Tablet PO (06:17)
[2020-12-28 06:20] LABS: Absolute Lymphocyte Count 2.74 X10^3/uL (0.83-4.51); Absolute Neutrophil Count 4.6 X10^3/uL (2.0-7.7); Basophil# 0.04 X10^3/uL; Basophil% 0.5 % (0-1); Eosinophil# 0.27 X10^3/uL; Eosinophils% 3.2 % (0-5); Hematocrit 38.4 % (37-47); Hemoglobin 12.1 g/dL (12.0-15.0); Lymphocyte # 2.74 X10^3/ul (0.83-4.51); Lymphocyte % 32.5 % (19-41); Mean Corp Hgb Conc 31.5 g/dL (32-36); Mean Corpuscular Hgb 27.3 pg (27.0-32.0); Mean Corpuscular Volume 86.7 fL (81-99); Mean Platelet Vol. 10.9 fl (6.2-12.0); Monocyte# 0.74 X10^3/uL; Monocyte% 8.8 % (0-10); NRBC Flagged by Analyzer 0 % (0-5); Neutrophil # 4.63 X10^3/uL (2.7-7.7); Neutrophil % 54.8 % (47-70); Platelet Count 245 K/mm3 (150-450); RBC Distribution Width CV 13.9 % (11.6-14.6); RBC Distribution Width SD 44.6 fl (35.1-43.9); Red Blood Count 4.43 M/mm3 (4.2-5.4); White Blood Count 8.4 K/mm3 (4.4-11.0)
[2020-12-28 08:21] LABS: Anion Gap 5 (5-15); BUN 20 mg/dL (7-18); BUN/Creat Ratio 22.9 RATIO (10-20); Calcium,Total 8.9 mg/dL (8.5-10.1); Chloride 105 mmol/L (98-107); Cholesterol 153 mg/dL (200); Creatinine, Serum 0.87 mg/dL (0.55-1.02); EST Glomerular Filtration Rate 69 mL/min (>60); Est Glom Filt Rate - Afr Amer 83 mL/min (>60); Estimated Creatinine Clearance 57.24 ml/min; Glucose 100 mg/dL (74-106); High Density Lipoprotein 42 mg/dL; Potassium 3.9 mmol/L (3.5-5.1); Sodium Level 134 mmol/L (136-145); Triglycerides 144 mg/dL; Very Low Density Lipoprotein 29 mg/dL (5-40)
[2020-12-28] MEDS: 0.9% Saline Lock 10 ML Syringe IV (09:36)
[2020-12-28] MEDS: 0.9% Normal Saline 1,000 ML 60 ML IV (09:36)
--- NOTE | 2020-12-28 09:38 | NURSING ---
Report called to JONAH Garrison in laborer syrup machine.
--- NOTE | 2020-12-28 11:02 | CL.D_ITS ---
Patient Name: ELEN ARMAS Study Date: 12/28/2020 Performing: Ovidio Lambert MD Ht: 64.96 inches 165 cm : 1955 Wt: 337.31 lbs 153 kg Age: 65 Gender: female BSA: 2.47 PROCEDURE(S) PERFORMED KN24-FOG/COR/LV CLINICAL PROFILE AND INDICATIONS Indications: Worsening Angina Heart Failure: None Stress/Imaging Date: 12/10/20 CAD Presentations: Stable angina. CONCLUSIONS Non obstructive coronary arteries RECOMMENDATIONS Medical therapy DESCRIPTION OF PROCEDURE The patient arrived to the procedure lab. The risks and benefits of the procedure as well as a full d escription of our services here and current unavailability of surgical backup were fully explained to the patient and/or their significant other prior to the catheterization. The Timeout was completed, verifying the correct patient and procedure. The patient's procedural site was prepped and draped in the usual fashion. Local anesthetic was given subcutaneously to right radial region with Lidocaine 2% . Using a modified Seldinger technique, arterial access was obtained via the right radial artery, a 6 Fr sheath was inserted. Left Coronary Artery selective angiography was performed in multiple views u sing a 5 Fr. 4.0 [place] catheter. Right Coronary Artery selective angiography was then performed in mu ltiple views using a 5 Fr. 4.0 [place] catheter. Left Ventriculography was performed in HERNANDEZ projection using a 5 Fr. Pigtail catheter. LV to AO pullback pressures were then recorded.The arterial sheath was pulled and a TR Band was applied for hemostasis. 12cc of air CORONARY ANGIOGRAPHY DOMINANCE: Right Dominant LEFT HEART ASSESSMENT Left Ventricular Ejection Fraction: by LV Gram 60 % Normal LV wall motion Normal Left Ventricular systolic function LEFT MAIN: Angiographically normal LEFT ANTERIOR DESCENDING ARTERY: No significant disease noted CIRCUMFLEX ARTERY: No significant disease noted RIGHT CORONARY ARTERY: Mild luminal irregularities COMPLICATIONS No Complications PROCEDURE MEDICATIONS Versed 1 mg IV Fentanyl 50 mcg IV Oxygen: 2 L/min via nasal cannula Aspirin (325mg) 1 Tabs PO @ 12/28/2020 10:27:19 Heparin given IA 12/28/2020 10:46:29 Verapamil 2.5mg, Ntg 100mcgs, 3000 units of Heparin given IA 12/28/2020 10:46:29 SUMMARY OF HEMODYNAMIC DATA Time AIR REST ECG 10:24:23 AO 137/79 (103) SA 10:48:00 LV 147/1, 18 10:53:57 LV 146/3, 12 10:54:03 LV 153/12, 19 10:54:53 LVp 150/5, 13 10:54:58 AOp 168/84 (118) 10:55:03 RM AIR REST 11:00:40 Signed By Ovidio Lambert MD On 12/28/2020 11:01:40 AM Ovidio Lambert MD
--- NOTE | 2020-12-28 11:04 | PCM.PN.CARD ---
Subjective Subjective Patient seen and evaluated. Objective Data Vital Signs: Vital Signs Temp Pulse Resp BP Pulse Ox 98.4 F 57 L 16 141/87 H 96 12/28/20 08:12 12/28/20 08:12 12/28/20 08:12 12/28/20 08:12 12/28/20 08:12 Oxygen Delivery Method Room Air Weight: 337 lb 1.388 oz Body Mass Index (BMI) 56.0 Intake & Output: Intake and Output for Last 24 Hours 12/26/20 12/27/20 12/28/20 23:59 23:59 23:59 Intake Total 440 / 440 75 / 75 Balance 440 / 440 75 / 75 Lab / Micro Data Result Diagrams: 12/28/20 06:10 12/28/20 06:10 Labs: Laboratory Results - last 24 hr 12/27/20 12/27/20 12/27/20 10:11 10:11 14:31 WBC RBC Hgb Hct MCV MCH MCHC RDW Std Deviation RDW Coeff of Nnamdi Plt Count MPV Immature Gran % (Auto) Neut % (Auto) Lymph % (Auto) Talbot % (Auto) Eos % (Auto) Baso % (Auto) Absolute Neuts (auto) Absolute Lymphs (auto) Nucleated RBC % Sodium 138 Potassium 3.9 Chloride 103 Carbon Dioxide 26.0 Anion Gap 9 BUN 22 H Creatinine 1.11 H Estim Creat Clear Calc 44.86 Est GFR (MDRD) Af Amer 63 Est GFR (MDRD) Non-Af 52 L BUN/Creatinine Ratio 19.8 Glucose 104 Calcium 9.3 Troponin I < 0.015 < 0.015 B-Natriuretic Peptide 88.8 Triglycerides Cholesterol LDL Cholesterol VLDL Cholesterol HDL Cholesterol 12/27/20 12/27/20 12/28/20 16:55 19:59 06:10 WBC 8.4 RBC 4.43 Hgb 12.1 Hct 38.4 MCV 86.7 MCH 27.3 MCHC 31.5 L RDW Std Deviation 44.6 H RDW Coeff of Nnamdi 13.9 Plt Count 245 MPV 10.9 Immature Gran % (Auto) 0.200 Neut % (Auto) 54.8 Lymph % (Auto) 32.5 Talbot % (Auto) 8.8 Eos % (Auto) 3.2 Baso % (Auto) 0.5 Absolute Neuts (auto) 4.6 Absolute Lymphs (auto) 2.74 Nucleated RBC % 0 Sodium Potassium Chloride Carbon Dioxide Anion Gap BUN Creatinine Estim Creat Clear Calc Est GFR (MDRD) Af Amer Est GFR (MDRD) Non-Af BUN/Creatinine Ratio Glucose Calcium Troponin I < 0.015 < 0.015 B-Natriuretic Peptide Triglycerides Cholesterol LDL Cholesterol VLDL Cholesterol HDL Cholesterol 12/28/20 06:10 WBC RBC Hgb Hct MCV MCH MCHC RDW Std Deviation RDW Coeff of Nnamdi Plt Count MPV Immature Gran % (Auto) Neut % (Auto) Lymph % (Auto) [place] % (Auto) Eos % (Auto) Baso % (Auto) Absolute Neuts (auto) Absolute Lymphs (auto) Nucleated RBC % Sodium 134 L Potassium 3.9 Chloride 105 Carbon Dioxide 24.0 Anion Gap 5 BUN 20 H Creatinine 0.87 Estim Creat Clear Calc 57.24 Est GFR (MDRD) Af Amer 83 Est GFR (MDRD) Non-Af 69 BUN/Creatinine Ratio 22.9 H Glucose 100 Calcium 8.9 Troponin I B-Natriuretic Peptide Triglycerides 144 Cholesterol 153 LDL Cholesterol 82 VLDL Cholesterol 29 HDL Cholesterol 42 Rhythm Strip Rhythm Strip: A-fib Rate: 129 Ectopy: None Cardiology Labs/Tests 12/27/20 10:11: Sodium 138, Potassium 3.9, Chloride 103, Carbon Dioxide 26.0, Anion Gap 9, BUN 22 H, Creatinine 1.11 H, Est GFR (MDRD) Af Amer 63, Est GFR (MDRD) Non-Af 52 L, BUN/Creatinine Ratio 19.8, Glucose 104, Calcium 9.3, Troponin I < 0.015 12/27/20 10:11: B-Natriuretic Peptide 88.8 12/27/20 14:31: Troponin I < 0.015 12/27/20 16:55: Troponin I < 0.015 12/27/20 19:59: Troponin I < 0.015 12/28/20 06:10: WBC 8.4, RBC 4.43, Hgb 12.1, Hct 38.4, MCV 86.7, MCH 27.3, MCHC 31.5 L, Plt Count 245, MPV 10.9, Immature Gran % (Auto) 0.200, Neut % (Auto) 54.8, Lymph % (Auto) 32.5, Talbot % (Auto) 8.8, Eos % (Auto) 3.2, Baso % (Auto) 0.5, Absolute Neuts (auto) 4.6, Nucleated RBC % 0 12/28/20 06:10: Sodium 134 L, Potassium 3.9, Chloride 105, Carbon Dioxide 24.0, Anion Gap 5, BUN 20 H, Creatinine 0.87, Est GFR (MDRD) Af Amer 83, Est GFR (MDRD) Non-Af 69, BUN/Creatinine Ratio 22.9 H, Glucose 100, Calcium 8.9, Triglycerides 144, Cholesterol 153, LDL Cholesterol 82, VLDL Cholesterol 29, HDL Cholesterol 42 Rhythm: EKG: Normal sinus rhythm ECHO: Stress Test: Cardiac Cath: PCI: CT Surgery: Holter monitor: EPS: PPM: CXR: Chest CT Scan: Radiography Diagnostic Testing: Radiology Impression Chest X-Ray 12/27/20 10:35 IMPRESSION: No radiographic evidence of acute cardiopulmonary disease. at 1059 Reported and signed by: Ascencion James MD Electronically Signed: Ascencion James MD at 10:58 EDT Tel , Service support , Physical Exam Const oriented x3 and healthy appearing Orientation / Consciousness: awake HEENT normocephalic Eyes PERRL and conjunctivae normal Neck supple, no JVD and no carotid bruits Chest inspection of chest normal Resp normal respiratory effort and clear to auscultation bilaterally Cardio Palpation: normal PMI Rate: regular rate Rhythm: regular rhythm Heart Sounds: S1 normal and S2 normal Peripheral Pulses: pulses 2+ throughout GI normal to inspection, nondistended, normoactive bowel sounds Extremity normal to inspection and no clubbing, cyanosis or edema Psych mental status grossly normal Assessment & Plan Assessment/Plan (1) Angina at rest: PLAN: My recommendation is for her to discontinue aspirin at this timePatient presents with recurrent chest discomfort. She was also noted to have an abnormal stress test with anterior ischemia. She underwent a cardiac catheterization today which demonstrated essentially normal coronary arteries. The above is likely secondary to a false positive from breast attenuation artifact. And we will continue with risk factor modification. (2) Atrial fibrillation with rapid ventricular response: PLAN: She does have evidence of atrial fibrillation which is paroxysmal and has spontaneously converted to sinus rhythm. She does have a chads vas score of 2 and I would recommend that we start her on Eliquis at home as well as her beta-himanshu. The aspirin can be discontinued. Her ejection fraction is noted to be normal. (3) Essential (primary) hypertension: PLAN: Her blood pressure is elevated. I would recommend that we increase her lisinopril to 20 mg a day. Thank you for allowing me to participate in the care of your patient. Please don't hesitate to call if any issues arise.
--- NOTE | 2020-12-28 11:38 | DS.PCM_ITS ---
Providers Date of Admission: 12/27/20 Primary Care Physician: Dr. Walter Estrada MD Consultations 12/27/20 14:09 Consult: Cardiology Routine Consulting Provider: Stevie Mc Reason for Consult: Cardiac cath in am EMERGENT Consult: No MD Notified: Yes Date Notified: 12/27/20 Time Notified: 12:50 Method of Notification: Verbal Reason For Visit: CHEST PAIN Diagnosis Discharge Diagnosis (1) Angina at rest: Status: Acute Code(s): I20.8 - Other forms of angina pectoris (2) Atrial fibrillation with rapid ventricular response: Status: Acute Code(s): I48.91 - Unspecified atrial fibrillation (3) Essential (primary) hypertension: Status: Chronic Code(s): I10 - Essential (primary) hypertension Medications at Discharge Home Medications aspirin [Aspir-81] 81 mg PO DAILY 12/05/18 cholecalciferol (vitamin D3) [Vitamin D3] 1,000 unit PO DAILY 12/05/18 lisinopril 10 mg PO DAILY 12/05/18 melatonin 6 mg PO QHS 07/07/19 multivitamin 1 tab PO DAILY 11/30/20 omeprazole 20 mg capsule,delayed release 20 mg PO DAILY 11/30/20 ropinirole 1 mg tablet 2 mg PO QHS tab 11/30/20 apixaban 5 mg tablet 5 mg PO BID tab 12/02/20 furosemide 40 mg tablet 40 mg PO DAILY tab 12/02/20 metoprolol tartrate 25 mg tablet 25 mg PO BID tab 12/02/20 calcium carbonate-vitamin D3 [Calcium 600 + D(3)] 1 tab PO DAILY 12/27/20 Hospital Course Operations None Procedures Cardiac catheterization Summary of Care Provided Minutes Spent on Discharge: 40 Hospital Course: Patient is a 65 y/o with a PMH as outlined who was admitted via the ED on 01/13/2021 with a chief complaint of nonexertional chest pain which woke her up from sleep. Pain was retrosternal and worsened by exertion. She had had a stress test which was abnormal recently and she had been scheduled for outpatient cardiac cath on 12/28/2020. Initial EKG showed A. fib with RVR which subsequently converted to normal sinus rhythm with a ventricular rate of 61 after she was given metoprolol. Troponins x3 were within normal limits and BNP was 88.8. Chest x-ray showed mild cardiomegaly. She was admitted to be managed for chest pain rule out ACS. She had cardiac cath on 12/28/2020 which showed nonobstructive coronary arteries. Patient remained stable and was discharged home on 12/28/2020. She was started on p.o. Eliquis as prophylaxis for A. fib. She is follow-up with her primary care doctor and with cardiology. Patient was seen and examined prior to discharge. She had no complaints and felt well. Review of systems otherwise negative. Labs and vitals reviewed. Home medication reviewed and reconciled. Physical Exam Const alert, oriented x3 and no apparent distress General Appearance: cooperative, comfortable and well kempt Orientation / Consciousness: awake, oriented to person, oriented to place and oriented to time Exam Limitations: no limitations Nutritional Appearance: obese HEENT normocephalic, head/scalp atraumatic, hearing grossly normal bilaterally and moist oral mucous membranes Eyes PERRL, EOMs intact bilaterally and conjunctivae normal Neck no lymphadenopathy, supple, no JVD and no carotid bruits Resp normal respiratory effort, no retractions, no use of accessory muscles and clear to auscultation bilaterally Cardio regular rate, regular rhythm, S1 normal heart sound, S2 normal heart sound and no murmurs GI normal to inspection, nondistended, normoactive bowel sounds, soft to palpation, non-tender and non-distended Extremity normal to inspection, full ROM and no clubbing, cyanosis or edema Neuro oriented x3 and moves all extremities Sensorium / Orientation: awake and alert Psych affect normal Weight / BMI Weight Weight: 337 lb 1.388 oz Body Mass Index (BMI) 56.0 ABG / Lab / Microbiology Data Result Diagrams: 12/28/20 06:10 12/28/20 06:10 Laboratory: Laboratory Results - last 24 hr 12/27/20 12/27/20 12/27/20 14:31 16:55 19:59 WBC RBC Hgb Hct MCV MCH MCHC RDW Std Deviation RDW Coeff of Nnamdi Plt Count MPV Immature Gran % (Auto) Neut % (Auto) Lymph % (Auto) [place] % (Auto) Eos % (Auto) Baso % (Auto) Absolute Neuts (auto) Absolute Lymphs (auto) Nucleated RBC % Sodium Potassium Chloride Carbon Dioxide Anion Gap BUN Creatinine Estim Creat Clear Calc Est GFR (MDRD) Af Amer Est GFR (MDRD) Non-Af BUN/Creatinine Ratio Glucose Calcium Troponin I < 0.015 < 0.015 < 0.015 Triglycerides Cholesterol LDL Cholesterol VLDL Cholesterol HDL Cholesterol 12/28/20 12/28/20 06:10 06:10 WBC 8.4 RBC 4.43 Hgb 12.1 Hct 38.4 MCV 86.7 MCH 27.3 MCHC 31.5 L RDW Std Deviation 44.6 H RDW Coeff of Nnamdi 13.9 Plt Count 245 MPV 10.9 Immature Gran % (Auto) 0.200 Neut % (Auto) 54.8 Lymph % (Auto) 32.5 [place] % (Auto) 8.8 Eos % (Auto) 3.2 Baso % (Auto) 0.5 Absolute Neuts (auto) 4.6 Absolute Lymphs (auto) 2.74 Nucleated RBC % 0 Sodium 134 L Potassium 3.9 Chloride 105 Carbon Dioxide 24.0 Anion Gap 5 BUN 20 H Creatinine 0.87 Estim Creat Clear Calc 57.24 Est GFR (MDRD) Af Amer 83 Est GFR (MDRD) Non-Af 69 BUN/Creatinine Ratio 22.9 H Glucose 100 Calcium 8.9 Troponin I Triglycerides 144 Cholesterol 153 LDL Cholesterol 82 VLDL Cholesterol 29 HDL Cholesterol 42 Radiography Diagnostic Testing: Radiology Impression Chest X-Ray 12/27/20 10:35 IMPRESSION: No radiographic evidence of acute cardiopulmonary disease. at 1059 Reported and signed by: Ascencion James MD Electronically Signed: Ascencion James MD at 10:58 EDT Tel , Service support , D/C Instructions Discharge Diet: 2000 mg Sodium Diet Discharge Activity: Return to Normal Activity Weight Bearing Status: Weight bearing as tolerated Call your doctor if you observe: Fever of 101 or Higher, Shortness of breath, Fainting spells, Chest pain and Increased palpitations (irregular heartbeat) Meaningful Use Info Meaningful Use Diagnoses (Choose all that apply): None applicable Discharge Plan Admission Admit Date/Time: 12/27/20 12:50 Primary Reason for Your Visit: chest pain Attending Provider: Cristina Harrison Primary Care Provider: Walter Estrada Consulting Providers: Stevie Mc Instructions Patient Instructions: Atrial Fibrillation, ED Chest Pain, Noncardiac Discharge Orders/Prescriptions Prescriptions: Continued furosemide 40 mg tablet 40 mg PO DAILY RF: 0 metoprolol tartrate 25 mg tablet 25 mg PO BID RF: 0 apixaban 5 mg tablet 5 mg PO BID RF: 0 lisinopril 10 MG tablet 10 mg PO DAILY RF: 0 aspirin [Aspir-81] 81 MG tablet,delayed release (DR/EC) 81 mg PO DAILY RF: 0 cholecalciferol (vitamin D3) [Vitamin D3] 1,000 UNIT tablet,chewable 1,000 unit PO DAILY RF: 0 melatonin 3 MG capsule 6 mg PO QHS RF: 0 calcium carbonate-vitamin D3 [Calcium 600 + D(3)] 600 mg(1,500mg) -400 unit Tablet 1 tab PO DAILY RF: 0 omeprazole 20 mg capsule,delayed release(DR/EC) 20 mg PO DAILY RF: 0 ropinirole 1 mg tablet 2 mg PO QHS RF: 0 multivitamin Tablet 1 tab PO DAILY RF: 0 Referrals / Follow Up: Ovidio Lambert MD [STAFF PHYSICIAN] - Within 1 Month Walter Estrada MD [Primary Care Provider] - Within 2 Weeks Disposition Disposition (needs filled in before D/C Order can be placed): Home, self care Charges/Coding Visit Charges OBSV E&M: 15180 Observation care discharge
--- NOTE | 2020-12-28 11:49 | NURSING ---
Patient laying in bed. States he doesn't feel good. Reports feeling nauseas and having centralized chest pressure 10/10 just as when she came in over night. EKG ordered.
--- NOTE | 2020-12-28 11:50 | EKG12_ITS ---
Test Reason : CP POST CATH Blood Pressure : / mmHG Vent. Rate : 063 BPM Atrial Rate : 063 BPM P-R Int : 198 ms QRS Dur : 094 ms QT Int : 424 ms P-R-T Axes : 062 008 027 degrees QTc Int : 433 ms Normal sinus rhythm Low voltage QRS Borderline ECG When compared with ECG of 28-DEC-2020 05:54, MANUAL COMPARISON REQUIRED, DATA IS UNCONFIRMED Confirmed by RACHEL EVERETT, OVIDIO ([id number]), makeup editor JIMBO LORENZO ([id number]) on 12/29/2020 9:07:45 AM Referred By: Ovidio Lambert Confirmed By:OVIDIO LAMBERT MD
[2020-12-28] MEDS: 0.9% Normal Saline 1,000 ML 75 ML IV (11:55)
--- NOTE | 2020-12-28 11:58 | CT_ITS ---
STUDY: CTA CHEST REASON FOR EXAM: Female, 65 years old. Chest pain RADIATION DOSAGE (If Supplied By Facility): CTDIvol = ( 17.42 ) mGy, DLP = ( 490.78 ) mGycm TECHNIQUE: The examination was performed with the intravenous administration of IV 100mL Isovue-370. Post-processing of the angiographic images was performed, with multiplanar reformation and 3D reconstruction. Individualized dose optimization techniques were used for this CT. COMPARISON: Comparison is made with prior chest radiograph dated 12/27/2020. FINDINGS: Normal enhancement of the main pulmonary artery and right and left pulmonary arteries. Normal enhancement of the bilateral peripheral pulmonary arteries. There is no demonstrated pulmonary embolism. Normal thoracic aorta and visualized great vessels. There is no demonstrated aortic dissection. There are calcifications of the coronary arteries. Normal mediastinum. Normal hilar regions. Normal visualized trachea and bronchi. The lungs are well expanded. Normal pulmonary parenchyma. Normal pleura. Normal chest wall structures. There are degenerative changes of thoracic spine. Normal visualized upper abdomen. CT/CTA Chest W/WO Contrast IMPRESSION: No acute abnormality seen. Electronically Signed: Alfie Barrera MD at 12:53 EDT , Service support ,
[2020-12-28] MEDS: Acetaminophen 325 MG Tablet 650 MG PO (12:13)
== END 2020-12-28 11:50 | disposition home or self-care (01) ==
LOC: ED 12:47 → PCU 13:23
PROVIDERS: Admitting Provider Family Medicine; Emergency Provider Emergency Medicine; PCP Family Medicine; Visit Provider Student in an Organized Health Care Education/Training Program
DX: I20.8 Other forms of angina pectoris (principal); I10 Essential (primary) hypertension; K21.9 Gastro-esophageal reflux disease without esophagitis; E78.5 Hyperlipidemia, unspecified; G47.33 Obstructive sleep apnea (adult) (pediatric); I48.0 Paroxysmal atrial fibrillation; E66.01 Morbid (severe) obesity due to excess calories; R94.39 Abnormal result of other cardiovascular function study; Z79.01 Long term (current) use of anticoagulants; Z79.899 Other long term (current) drug therapy; Z79.82 Long term (current) use of aspirin; Z68.43 Body mass index [BMI] 50.0-59.9, adult; R06.02 Shortness of breath
CPT/HCPCS: 36415; 71045; 71275; 80048; 80061; 83880; 84484; 85025; 93005; 93458; 96361; 96372; 96374; 96375; 99152; 99153; 99218; 99285; J7030; Q9967; A4216; C1769; C1894; G0378; J1940

== ENCOUNTER → 2021-03-29 10:43 | Outpatient (CLI) | payer MEDICARE, OTHER, SELFPAY | PROVIDERS: PCP Family Medicine; Referring Provider Nurse Practitioner Family; Visit Provider Nurse Practitioner Family | DX: I48.0 Paroxysmal atrial fibrillation (principal) | CPT/HCPCS: 93225; 93226 ==

== ENCOUNTER → 2021-04-23 11:15 | Outpatient (CLI) | payer MEDICARE, OTHER, SELFPAY ==
--- NOTE | 2021-04-23 11:19 | RAD_ITS ---
STUDY: X-RAY CHEST REASON FOR EXAM: Female, 66 years old. Fever and cough TECHNIQUE: PA and lateral views of the chest. COMPARISON: 12/27/2020 FINDINGS: There are interstitial changes of the lungs. There is no demonstrated pleural abnormality. Normal size heart. Normal mediastinum and laura. Normal visualized pulmonary arteries. Normal visualized aortic arch and descending thoracic aorta. There are diffuse degenerative changes of the visualized thoracic spine. Normal visualized ribs, clavicles, and shoulders. There is no demonstrated abnormality of the visualized soft tissue structures of the upper abdomen. RAD/Chest PA and Lateral IMPRESSION: Chronic interstitial changes, no superimposed acute pulmonary process Electronically Signed: Harjinder Montoya MD at 12:10 EDT , Service support ,
[2021-04-23 13:08] LABS: Absolute Neutrophil Count 5.1 X10^3/uL (2.0-7.7); Basophil# 0.04 X10^3/uL; Basophil% 0.5 % (0-1); Eosinophil# 0.21 X10^3/uL; Eosinophils% 2.5 % (0-5); Hematocrit 39.1 % (37-47); Hemoglobin 12.3 g/dL (12.0-15.0); Lymphocyte % 30.4 % (19-41); Mean Corp Hgb Conc 31.5 g/dL (32-36); Mean Corpuscular Volume 88.9 fL (81-99); Mean Platelet Vol. 11.4 fl (6.2-12.0); Monocyte# 0.61 X10^3/uL; Monocyte% 7.1 % (0-10); NRBC Flagged by Analyzer 0 % (0-5); Neutrophil # 5.06 X10^3/uL (2.7-7.7); Platelet Count 265 K/mm3 (150-450); RBC Distribution Width SD 45.6 fl (35.1-43.9); White Blood Count 8.6 K/mm3 (4.4-11.0)
[2021-04-23 13:26] LABS: D-Dimer Quantitative (DVT/PE) 0.74 FEU/ug/m (0.27-0.49)
[2021-04-23 13:43] LABS: BNP,B-Type NATRIURETIC PEPTIDE 41.1 pg/mL (0-100)
[2021-04-23 13:49] LABS: ALB/GLOB Ratio 0.7 RATIO (0.9-2.4); AST(SGOT) 19 U/L (15-37); Alanine Aminotransfer ALT/SGPT 22 U/L (13-56); Albumin, Serum 3.2 g/dL (3.2-5.0); Alkaline Phosphatase 115 U/L (45-117); Anion Gap 7 (5-15); BUN 16 mg/dL (7-18); BUN/Creat Ratio 16.8 RATIO (10-20); Calcium,Total 9.4 mg/dL (8.5-10.1); Chloride 103 mmol/L (98-107); Creatinine, Serum 0.95 mg/dL (0.55-1.02); EST Glomerular Filtration Rate 62 mL/min (>60); Est Glom Filt Rate - Afr Amer 76 mL/min (>60); Globulin 4.6 g/dL (2.2-4.2); Glucose 99 mg/dL (74-106); Potassium 4.2 mmol/L (3.5-5.1); Protein, Total 7.8 g/dL (6.4-8.2); Sodium Level 136 mmol/L (136-145); Thyroid Stim Hormone (TSH) 3.24 uIU/mL (0.358-3.74)
== END ==
PROVIDERS: PCP Family Medicine; Referring Provider Family Medicine; Visit Provider Family Medicine
DX: I51.89 Other ill-defined heart diseases (principal)
CPT/HCPCS: 36415; 71046; 80053; 83880; 84443; 85025; 85379

== ENCOUNTER → 2021-04-23 14:59 | Outpatient (CLI) | payer MEDICARE, OTHER, SELFPAY ==
--- NOTE | 2021-04-23 15:22 | CT_ITS ---
STUDY: CTA CHEST REASON FOR EXAM: Female, 66 years old. chest pain RADIATION DOSAGE (If Supplied By Facility): CTDIvol = ( 17.41 ) mGy, DLP = ( 544.21 ) mGycm TECHNIQUE: The examination was performed with the intravenous administration of IV 100mL Isovue-370. Post-processing of the angiographic images was performed, with multiplanar reformation and 3D reconstruction. Individualized dose optimization techniques were used for this CT. COMPARISON: None. FINDINGS: Normal enhancement of the main pulmonary artery and right and left pulmonary arteries. Normal enhancement of the bilateral peripheral pulmonary arteries. There is no demonstrated pulmonary embolism. Normal thoracic aorta and visualized great vessels. There is no demonstrated aortic dissection. Normal heart and pericardium. Normal mediastinum. Normal hilar regions. Normal visualized trachea and bronchi. The lungs are well expanded. Normal pulmonary parenchyma. Normal pleura. Normal chest wall structures. Normal osseous structures. Normal visualized upper abdomen. CT/CTA Chest W/WO Contrast IMPRESSION: No central or segmental pulmonary embolism. Electronically Signed: Paulo Smith MD ([place]) at 15:45 EDT , Service support ,
== END ==
PROVIDERS: PCP Family Medicine; Referring Provider Family Medicine; Visit Provider Family Medicine
DX: R07.9 Chest pain, unspecified (principal); I51.89 Other ill-defined heart diseases; R60.9 Edema, unspecified
CPT/HCPCS: 36415; 71046; 71275; 80053; 83880; 84443; 85025; 85379; Q9967

== ENCOUNTER 2021-08-26 11:11 | Outpatient (CLI) | payer MEDICARE, OTHER, SELFPAY ==
[2021-08-26 15:08] LABS: Color, Urine Yellow (Yellow); Glucose, Dipstick Normal (Normal); Ketone-Dipstick Negative (Negative); Leukocyte Esterase-Dipstick Negative /ul (Negative); Nitrite-Dipstick Positive (Negative); Occult Blood-Urine Negative /ul (Negative); Protein-Dipstick Negative (Negative); Specific Gravity, Urine 1.015 (1.002-1.030); Urine Bilirubin Dipstick Negative (Negative); Urine Clarity Sl. Cloudy (Clear); Urine Urobilinogen Normal (Normal)
== END 2021-08-26 23:59 | disposition home or self-care (01) ==
LOC: MTLAB 11:13
PROVIDERS: PCP Family Medicine; Referring Provider Internal Medicine Rheumatology; Visit Provider Internal Medicine Rheumatology
DX: M79.18 Myalgia, other site (principal)
CPT/HCPCS: 36415; 81002

== ENCOUNTER 2021-10-13 07:43 | Outpatient (CLI) | payer MEDICARE, OTHER, SELFPAY ==
--- NOTE | 2021-10-13 07:44 | ECHOCS_ITS ---
Reason For Study: PAF Procedure This was a 2D Doppler, Color Flow transthoracic echocardiogram. Contrast injection was performed. Exam performed in department. Left Ventricle Normal LV size. Left ventricular systolic function is lower limits of normal. The estimated ejection fraction is 50 %. No regional wall motion abnormalities noted. Right Ventricle Normal RV size. Normal systolic function. Atria Normal left atrium. Normal right atrium. Mitral Valve Normal mitral valve. Tricuspid Valve Normal tricuspid valve. Mild (1+) tricuspid valve insufficiency. Pulmonary artery systolic pressure is 36 mmHg. Aortic Valve The aortic valve is not well visualized. Pulmonic Valve The pulmonic valve is not well visualized. Great Vessels Normal aortic root. The pulmonary artery is normal size. Normal inferior vena cava. Pericardium/Pleural No pericardial effusion. Medication Diluted definity 3ml given slow IV push to enhance endocardial definition. MMode/2D Measurements & Calculations LVIDd: 4.7 cm IVSd: 1.2 cm Ao root diam: 3.3 cm LVIDs: 3.2 cm LVPWd: 1.2 cm RVDd: 3.5 cm FS: 31.5 % LAV(MOD-bp): 67.4 ml LVAd ap4: 25.4 cm2 SV(MOD-sp4): 45.6 ml LAV(MOD-bp) Indexed: 27.2 ml/m2 LVLd ap4: 6.7 cm LAV(MOD-sp2): 59.9 ml EDV(MOD-sp4): 79.2 ml LAV(MOD-sp4): 67.3 ml EDV(sp4-el): 82.1 ml LVAs ap4: 15.3 cm2 LVLs ap4: 5.8 cm ESV(MOD-sp4): 33.7 ml ESV(sp4-el): 34.4 ml EF(MOD-sp4): 57.5 % EF(sp4-el): 58.1 % SV(sp4-el): 47.7 ml LA A4 area: 22.5 cm2 LA dimension(2D): 4.2 cm RA A4 area: 17.8 cm2 Doppler Measurements & Calculations MV E max navin: 134.5 cm/sec Ao V2 max: 138.0 cm/sec LV V1 max: 109.5 cm/sec Ao max P.6 mmHg LV V1 max P.1 mmHg Ao V2 mean: 92.6 cm/sec Ao mean P.8 mmHg Ao V2 VTI: 23.6 cm PA V2 max: 75.6 cm/sec TR max navin: 284.1 cm/sec TR max P.3 mmHg ECHO/Echo Complete W/ Contrast Interpretation Summary Normal LV size. Left ventricular systolic function is lower limits of normal. The estimated ejection fraction is 50 %. Pulmonary artery systolic pressure is 36 mmHg. Contrast injection was performed. Limited views were obtained. The study was te chnically difficult. The study was technically limited. Ordering Physician: Walter Mendez Referring Physician: Walter Mendez Performed By: Jeanette Potts, CAREY, RVT
== END 2021-10-13 23:59 | disposition home or self-care (01) ==
LOC: CVS 07:43
PROVIDERS: PCP Family Medicine; Referring Provider Family Medicine; Visit Provider Family Medicine
DX: I48.0 Paroxysmal atrial fibrillation (principal)
CPT/HCPCS: 93306; Q9957; A4216; C8929

== ENCOUNTER 2021-10-20 09:37 | Outpatient (CLI) | payer MEDICARE, OTHER, SELFPAY ==
[2021-10-20 10:49] LABS: BNP,B-Type NATRIURETIC PEPTIDE 94.1 pg/mL (0-100)
[2021-10-20 11:01] LABS: Anion Gap 3 (5-15); BUN 23 mg/dL (7-18); BUN/Creat Ratio 25.5 RATIO (10-20); Calcium,Total 9.2 mg/dL (8.5-10.1); Chloride 104 mmol/L (98-107); EST Glomerular Filtration Rate 66 mL/min (>60); Est Glom Filt Rate - Afr Amer 80 mL/min (>60); Glucose 156 mg/dL (74-106); Magnesium 2.3 mg/dL (1.6-2.6); Potassium 4.4 mmol/L (3.5-5.1); Sodium Level 136 mmol/L (136-145); T4 Free Direct 0.95 ng/dL (0.76-1.46); Thyroid Stim Hormone (TSH) 2.29 uIU/mL (0.358-3.74)
== END 2021-10-20 23:59 | disposition home or self-care (01) ==
LOC: LAB 09:39
PROVIDERS: PCP Family Medicine; Referring Provider Nurse Practitioner Family; Visit Provider Nurse Practitioner Family
DX: R06.00 Dyspnea, unspecified (principal); I48.0 Paroxysmal atrial fibrillation; I10 Essential (primary) hypertension
CPT/HCPCS: 36415; 80048; 83735; 83880; 84439; 84443

== ENCOUNTER 2021-11-11 09:00 | Outpatient (RCR) | payer MEDICARE, OTHER, SELFPAY | END 2021-11-13 23:59 | LOC: NS 09:00 | PROVIDERS: PCP Family Medicine; Referring Provider Family Medicine; Visit Provider Family Medicine | DX: Z71.3 Dietary counseling and surveillance (principal); E66.01 Morbid (severe) obesity due to excess calories; Z68.43 Body mass index [BMI] 50.0-59.9, adult | CPT/HCPCS: 97802; 97803 ==

== ENCOUNTER 2021-12-07 09:10 | Outpatient (RCR) | payer MEDICARE, OTHER, SELFPAY | END 2021-12-14 23:59 | LOC: NS 09:10 | PROVIDERS: PCP Family Medicine; Referring Provider Family Medicine; Visit Provider Family Medicine | DX: Z71.3 Dietary counseling and surveillance (principal); E66.01 Morbid (severe) obesity due to excess calories; Z68.43 Body mass index [BMI] 50.0-59.9, adult | CPT/HCPCS: 97803 ==

== ENCOUNTER → 2021-12-10 | Outpatient (CLI) | payer MEDICARE, OTHER, SELFPAY ==
[2021-12-10 10:19] LABS: Absolute Lymphocyte Count 1.99 X10^3/uL (0.83-4.51); Absolute Neutrophil Count 4.3 X10^3/uL (2.0-7.7); Basophil# 0.02 X10^3/uL; Basophil% 0.3 % (0-1); Eosinophil# 0.23 X10^3/uL; Eosinophils% 3.2 % (0-5); Hematocrit 37.2 % (37-47); Hemoglobin 11.6 g/dL (12.0-15.0); Lymphocyte # 1.99 X10^3/ul (0.83-4.51); Lymphocyte % 27.3 % (19-41); Mean Corp Hgb Conc 31.2 g/dL (32-36); Mean Corpuscular Hgb 27.5 pg (27.0-32.0); Mean Corpuscular Volume 88.2 fL (81-99); Mean Platelet Vol. 11.2 fl (6.2-12.0); Monocyte% 9.6 % (0-10); NRBC Flagged by Analyzer 0 % (0-5); Neutrophil # 4.33 X10^3/uL (2.7-7.7); Neutrophil % 59.5 % (47-70); Platelet Count 262 K/mm3 (150-450); RBC Distribution Width CV 13.7 % (11.6-14.6); RBC Distribution Width SD 44.6 fl (35.1-43.9); Red Blood Count 4.22 M/mm3 (4.2-5.4); White Blood Count 7.3 K/mm3 (4.4-11.0)
[2021-12-10 10:40] LABS: ALB/GLOB Ratio 0.8 RATIO (0.9-2.4); AST(SGOT) 18 U/L (15-37); Alanine Aminotransfer ALT/SGPT 25 U/L (13-56); Albumin, Serum 3.4 g/dL (3.2-5.0); Alkaline Phosphatase 92 U/L (45-117); Anion Gap 5 (5-15); BUN 26 mg/dL (7-18); BUN/Creat Ratio 26.3 RATIO (10-20); Calcium,Total 9.5 mg/dL (8.5-10.1); Chloride 107 mmol/L (98-107); Cholesterol 148 mg/dL (200); Creatinine, Serum 0.99 mg/dL (0.55-1.02); EST Glomerular Filtration Rate 59 mL/min (>60); Est Glom Filt Rate - Afr Amer 72 mL/min (>60); Globulin 4.3 g/dL (2.2-4.2); Glucose 109 mg/dL (74-106); High Density Lipoprotein 41 mg/dL; Magnesium 2.5 mg/dL (1.6-2.6); Potassium 4.2 mmol/L (3.5-5.1); Protein, Total 7.7 g/dL (6.4-8.2); Sodium Level 138 mmol/L (136-145); Thyroid Stim Hormone (TSH) 2.13 uIU/mL (0.358-3.74); Triglycerides 106 mg/dL; Very Low Density Lipoprotein 21 mg/dL (5-40)
[2021-12-11 09:19] LABS: Vitamin D,25 Hydroxy 77.3 ng/mL
== END | disposition home or self-care (01) ==
LOC: MFPLAB 08:50
PROVIDERS: PCP Family Medicine; Referring Provider Family Medicine; Visit Provider Family Medicine
DX: I10 Essential (primary) hypertension (principal); I48.0 Paroxysmal atrial fibrillation; E55.9 Vitamin D deficiency, unspecified
CPT/HCPCS: 36415; 80053; 80061; 82306; 83735; 84443; 85025

== ENCOUNTER → 2021-12-14 | Outpatient (CLI) | payer MEDICARE, OTHER, SELFPAY ==
[2021-12-14 15:06] LABS: Vitamin B12 604 pg/mL (211-911)
[2021-12-14 15:17] LABS: Hemoglobin A1c 5.7 % (3.8-5.6)
[2021-12-14 15:58] LABS: Ferritin 35 ng/mL (8-252); Iron 44 ug/dL (50-170); Iron Binding Capacity,Total 443 ug/dL (250-450); PERCENT IRON SATURATION 9.9 % (15.0-55.0)
== END | disposition home or self-care (01) ==
LOC: MFPLAB 11:48
PROVIDERS: PCP Family Medicine; Visit Provider Family Medicine
DX: D64.9 Anemia, unspecified (principal); Z79.899 Other long term (current) drug therapy
CPT/HCPCS: 36415; 82607; 82728; 82746; 83036; 83540; 83550

== ENCOUNTER 2022-01-04 08:30 | Outpatient (RCR) | payer SELFPAY | END 2022-01-13 23:59 | LOC: NS 08:30 | PROVIDERS: PCP Family Medicine; Referring Provider Family Medicine; Visit Provider Family Medicine | DX: Z71.3 Dietary counseling and surveillance (principal); E66.01 Morbid (severe) obesity due to excess calories; Z68.43 Body mass index [BMI] 50.0-59.9, adult | CPT/HCPCS: 97803 ==

== ENCOUNTER → 2022-01-18 | Outpatient (CLI) | payer MEDICARE, OTHER, SELFPAY ==
[2022-01-18 12:26] LABS: Absolute Lymphocyte Count 2.22 X10^3/uL (0.83-4.51); Absolute Neutrophil Count 4.9 X10^3/uL (2.0-7.7); Basophil# 0.04 X10^3/uL; Basophil% 0.5 % (0-1); Eosinophils% 2.5 % (0-5); Hematocrit 39.3 % (37-47); Hemoglobin 12.2 g/dL (12.0-15.0); Lymphocyte # 2.22 X10^3/ul (0.83-4.51); Lymphocyte % 27.5 % (19-41); Mean Corpuscular Hgb 27.2 pg (27.0-32.0); Mean Corpuscular Volume 87.5 fL (81-99); Mean Platelet Vol. 11.8 fl (6.2-12.0); Monocyte% 8.7 % (0-10); NRBC Flagged by Analyzer 0 % (0-5); Neutrophil # 4.88 X10^3/uL (2.7-7.7); Neutrophil % 60.3 % (47-70); Platelet Count 289 K/mm3 (150-450); RBC Distribution Width CV 13.7 % (11.6-14.6); RBC Distribution Width SD 43.8 fl (35.1-43.9); Red Blood Count 4.49 M/mm3 (4.2-5.4); White Blood Count 8.1 K/mm3 (4.4-11.0)
[2022-01-18 12:46] LABS: Ferritin 39 ng/mL (8-252); Iron 46 ug/dL (50-170); Iron Binding Capacity,Total 424 ug/dL (250-450); PERCENT IRON SATURATION 10.8 % (15.0-55.0)
== END | disposition home or self-care (01) ==
LOC: MFPLAB 10:43
PROVIDERS: PCP Family Medicine; Visit Provider Family Medicine
DX: D64.9 Anemia, unspecified (principal)
CPT/HCPCS: 36415; 82728; 83540; 83550; 85025

== ENCOUNTER 2022-02-08 11:00 | Outpatient (RCR) | payer MEDICARE, OTHER, SELFPAY | END 2022-02-13 23:59 | LOC: NS 11:00 | PROVIDERS: PCP Family Medicine; Referring Provider Family Medicine; Visit Provider Family Medicine | DX: Z71.3 Dietary counseling and surveillance (principal); E66.01 Morbid (severe) obesity due to excess calories; Z68.43 Body mass index [BMI] 50.0-59.9, adult; I48.0 Paroxysmal atrial fibrillation; R06.00 Dyspnea, unspecified | CPT/HCPCS: 36415; 80048; 83880; 97803 ==

== ENCOUNTER → 2022-02-08 | Outpatient (CLI) | payer MEDICARE, OTHER, SELFPAY ==
[2022-02-08 10:42] LABS: BNP,B-Type NATRIURETIC PEPTIDE 267.8 pg/mL (0-100)
[2022-02-08 10:52] LABS: Anion Gap 3 (5-15); BUN 25 mg/dL (7-18); BUN/Creat Ratio 22.7 RATIO (10-20); Chloride 106 mmol/L (98-107); EST Glomerular Filtration Rate 53 mL/min (>60); Est Glom Filt Rate - Afr Amer 64 mL/min (>60); Glucose 118 mg/dL (74-106); Potassium 4.9 mmol/L (3.5-5.1); Sodium Level 138 mmol/L (136-145)
== END | disposition home or self-care (01) ==
PROVIDERS: PCP Family Medicine; Referring Provider Nurse Practitioner Family; Visit Provider Nurse Practitioner Family
DX: R06.00 Dyspnea, unspecified (principal); I48.0 Paroxysmal atrial fibrillation
CPT/HCPCS: 36415; 80048; 83880

== ENCOUNTER 2022-03-15 09:00 | Outpatient (RCR) | payer MEDICARE, OTHER, SELFPAY | END 2022-03-16 23:59 | LOC: NS 09:00 | PROVIDERS: PCP Family Medicine; Referring Provider Family Medicine; Visit Provider Family Medicine | DX: Z71.3 Dietary counseling and surveillance (principal); E66.01 Morbid (severe) obesity due to excess calories; Z68.43 Body mass index [BMI] 50.0-59.9, adult | CPT/HCPCS: 97803 ==

== ENCOUNTER 2022-03-29 08:44 | Outpatient (RCR) | payer MEDICARE, OTHER, SELFPAY | END 2022-04-15 23:59 | LOC: NS 08:44 | PROVIDERS: PCP Family Medicine; Referring Provider Family Medicine; Visit Provider Family Medicine | DX: Z71.3 Dietary counseling and surveillance (principal); E66.01 Morbid (severe) obesity due to excess calories; Z68.43 Body mass index [BMI] 50.0-59.9, adult | CPT/HCPCS: 97803 ==

== ENCOUNTER → 2022-04-01 | Outpatient (CLI) | payer MEDICARE, OTHER, SELFPAY ==
[2022-04-01 15:24] LABS: Absolute Lymphocyte Count 2.58 X10^3/uL (0.83-4.51); Absolute Neutrophil Count 5.1 X10^3/uL (2.0-7.7); Basophil# 0.03 X10^3/uL; Basophil% 0.3 % (0-1); Eosinophil# 0.22 X10^3/uL; Eosinophils% 2.6 % (0-5); Hematocrit 37.3 % (37-47); Hemoglobin 11.8 g/dL (12.0-15.0); Lymphocyte # 2.58 X10^3/ul (0.83-4.51); Mean Corp Hgb Conc 31.6 g/dL (32-36); Mean Corpuscular Volume 88.4 fL (81-99); Mean Platelet Vol. 12.4 fl (6.2-12.0); Monocyte# 0.67 X10^3/uL; Monocyte% 7.8 % (0-10); NRBC Flagged by Analyzer 0 % (0-5); Neutrophil # 5.08 X10^3/uL (2.7-7.7); Platelet Count 264 K/mm3 (150-450); RBC Distribution Width CV 15.3 % (11.6-14.6); RBC Distribution Width SD 49.2 fl (35.1-43.9); Red Blood Count 4.22 M/mm3 (4.2-5.4); White Blood Count 8.6 K/mm3 (4.4-11.0)
[2022-04-01 15:28] LABS: Iron 49 ug/dL (50-170)
== END | disposition home or self-care (01) ==
LOC: MFPLAB 11:28
PROVIDERS: PCP Family Medicine; Referring Provider Family Medicine; Visit Provider Family Medicine
DX: D64.9 Anemia, unspecified (principal)
CPT/HCPCS: 36415; 83540; 85025

== ENCOUNTER 2022-04-04 09:30 | Outpatient (RCR) | payer MEDICARE, OTHER, SELFPAY ==
--- NOTE | 2022-01-27 09:57 | HP.PTEVAL_ITS ---
Patient's Visit Information ELEN ARMAS is a 66 year old F referred to Physical Therapy by Teo Ordonez PA-C with a diagnosis of JENNIFER KNEE OA. Date of Evaluation: 01/27/22 Physical Therapist: Suki Jeff PT, Cert MDT - Visit Plan Frequency: 2-3x /Week Duration: 4-6 Weeks Plan: AQUATIC THERAPY FOR KNEE PAIN RELIEF AND JENNIFER LE ROM, STRETCHING AND STRENGTHENING. PRE-HAB HEP INSTRUCTION FOR POSSIBLE PENDING JENNIFER TKR'S. 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 Present symptoms: JENNIFER KNEE PAIN. A LOT OF STIFFNESS IN UPPER LEGS. NO NUMBNESS OR TINGLING. LEGS ARE WEAK AND KNEES GIVE OUT. SOMETIMES THERE IS A GLITCH. POOR STAMINA AND STRENGTH. NO FALLS. Present since: CHRONIC. Pain Scale: WORST 10/10, LEAST 7/10. Currently: 8/10. Commenced as a result of: ARTHRITIS, FIBROMYALGIA. Worse: STANDING AND WALKING AND GOING UP STAIRS. Better: SITTING, LYING AND IN THE WATER. RUBBING THIGHS. Disturbed sleep: YES. Previous history/Previous treatment: WATER EX CLASS BUT NO SKILLED PT IN THE WATER. PAIN MEDICATIONS. INJECTIONS IN RIGHT KNEE AT [facility] BUT THEY DID NOT WORK (EARLIER THIS YEAR). NO KNEE SURGERIES. Gait: NO FALLS. VERY SLOW AND PAINFUL. WADDLING. BOWEL OR BLADDER DYSFUNCTION: NO. Accidents: NO. Unexplained weight loss: NO. Imaging: JENNIFER KNEE X-RAYS - SEVERE OA PER PATIENT REPORT. PMH/Recent major surgery: A-FIB. OBESITY. HTN. RLS. FIBROMYALGIA. ANEMIA. ON LASIX FOR LE EDEMA. CHRONIC LBP. OTHER: ALISHA'T PENDING WITH DR. AGUILAR FOR KNEE REPLACEMENT CONSULT PENDING IN FEB 2022. - Objective THIS PATIENT AMBULATES INDEP'LY INTO PT WITHOUT ANY AD'S OR LOB. WALKS WITH WIDE BASE OF SUPPORT, DECREASED CADANCE AND DECREASED JENNIFER STRIDE LENGTH. ROM deficit: RIGHT KNEE: -19 DEG EXT TO 110 DEG FLEX IN SUPINE WITH A HEEL SLIDE. -28 TO 104 DEG FLEX LEFT. Motor deficit: JENNIFER LE'S: HIPS 4/5, KNEE'S 4-/5, ANKLES 5/5. Core strength: POOR. Palpation: LEFT LE EDEMA > RIGHT. - Balance/Special Test Scores Lower Extremity Functional Score: 11 TUG Test Time Seconds: 23.29 30 Second Chair Rise Test Seconds: 4 - Goals Goal 1:: DECREASE C/O JENNIFER KNEE PAIN Goal Time Frame: 4-6 Weeks Goal 2:: IMPROVE RISING FROM SITTING, STANDING AND WALKING FUNCTION INCLUDING ON STEPS. Goal Time Frame: 4-6 Weeks Goal 3:: PATIENT WILL COMPLETE 7 STANDS IN 30 SECS TO DEMONSTRATE IMPROVED FUNCTIONAL STRENGTH Goal Time Frame: 4-6 Weeks Goal 4:: INCREASE JENNIFER KNEE FUNCTIONAL ROM TO EASE ADL'S Goal Time Frame: 4-6 Weeks Goal 5:: INCRASE JENNIFER KNEE FUNCTIONAL STRENGTH TO EASE ADL'S Goal Time Frame: 4-6 Weeks Goal 6:: PATIENT WILL BE INDEP WITH WATER AND HOME EX PROGRAMS FOR CONTINUED IMPROVEMENT ONCE FORMAL PHYSICAL THERAPY CONSLUDES. Goal Time Frame: 4-6 Weeks - Anticipated Interventions Patient/Client Instruction: Educate patient on: Condition, Plan of Care, Risk Factors For the Purpose of:: To improve self management Therapeutic Exercise to Include: Strength training, Flexibilty training, Gait and locomotor training, Neuromotor development, In an aquatic setting For the Purpose of:: To decrease pain, To increase ROM, To improve muscle performance and motor function, To increase tolerance to activity/condition/position, To improve ability of physical actions for home/community/work/leisure, To improve gait and locomotor functions Thank you for the opportunity to evaluate your patient. For Medicare and Medicare HMO plans, please review the plan of care and approve it. It will need to be FAXED BACK to us at [phone] for Medicare purposes. For Medicare only, by signing this I certify the plan of care. Please let me know if there are questions or concerns regarding this plan of ca re. Physician Signature: Date:
--- NOTE | 2022-02-25 10:10 | HP.PTREVAL_ITS ---
Teo Ordonez PA-C, It has been my pleasure to treat ELEN ARMAS over the last 8 visits for JENNIFER KNEE OA. Please see the progress note below for an update on the physical therapy plan of care! Subjective: PATIENT REPORT HER KNEES ARE FEELING MUCH BETTER BUT HER BACK STILL HURTS. SHE THINKS SHE HURT IT PULLING HER BATHING SUIT ON THE OTHER DAY. I THINK THE STRETCHING AND STRENGTHENING ARE HELPING. PATIENT REPORTS SHE FEELS LIKE WE ARE MAKING PROGRESS AND WANTS TO CONTINUE. PATIENT REPORTS STARTING CYMBALTA FOR HER FIBROMYALGIA ABOUT A WEEK AGO TOO. SHE REPORTS THAT WHEN SHE SAW DR. PINEDA LAST WEEK HE SUGGESTED A BACK INJECTION BUT SHE IS RELUCTANT. WILL CONTINUE TO FOLLOW UP WITH DR. PINEDA. Objective/Function: PATIENT WAS SEEN TODAY FOR RE-ASSESSMENT OF PROGRESS TOWARD THE SET PT GOALS AND THE NEED FOR FURTHER PHYSICAL THERAPY VS READINESS FOR DISCHARGE. PATIENT IS A GOOD CANDIDATE TO CONTINUE AQUATIC THERAPY BASED ON PROGRESS MADE AND ROOM FOR FURTHER IMPROVEMENT. PATIENT IS AGREEABLE. UPON EXAM TODAY: ROM deficit: RIGHT KNEE: -13 DEG EXT TO 112 DEG FLEX IN SUPINE WITH A HEEL SLIDE. -26 TO 106 DEG FLEX LEFT. Motor deficit: JENNIFER LE'S: HIPS 4/5, KNEE'S 4-/5, ANKLES 5/5 Plan Plan: *Review full flight of stair negotiation and add lunges next. CONTINUE AQUATIC THERAPY 2X'S A WK X 5 WKS. AQUATIC THERAPY FOR KNEE PAIN RELIEF AND JENNIFER LE ROM, STRETCHING AND STRENGTHENING. PRE-HAB HEP INSTRUCTION FOR POSSIBLE PENDING JENNIFER TKR'S. Balance/Gait/Functional tests - Balance/Special Test Scores Lower Extremity Functional Score: 26 TUG Test Time Seconds: 23.29 Tug Test: 20-30sec.=variable mobility 30 Second Chair Rise Test Seconds: 9 Goals Goal 1:: DECREASE C/O JENNIFER KNEE PAIN Goal Time Frame: 4-6 Weeks Goal Progress: Progressing Goal 2:: IMPROVE RISING FROM SITTING, STANDING AND WALKING FUNCTION INCLUDING ON STEPS. Goal Time Frame: 4-6 Weeks Goal Progress: Progressing Goal 3:: PATIENT WILL COMPLETE 7 STANDS IN 30 SECS TO DEMONSTRATE IMPROVED FUNCTIONAL STRENGTH Goal Time Frame: 4-6 Weeks Goal Progress: Goal Met Goal 4:: INCREASE JENNIFER KNEE FUNCTIONAL ROM TO EASE ADL'S Goal Time Frame: 4-6 Weeks Goal Progress: Progressing Goal 5:: INCRASE JENNIFER KNEE FUNCTIONAL STRENGTH TO EASE ADL'S Goal Time Frame: 4-6 Weeks Goal Progress: Progressing Goal 6:: PATIENT WILL BE INDEP WITH WATER AND HOME EX PROGRAMS FOR CONTINUED IMPROVEMENT ONCE FORMAL PHYSICAL THERAPY CONSLUDES. Goal Time Frame: 4-6 Weeks Goal Progress: Progressing Anticipated Interventions Patient/Client Instruction: Educate patient on: Condition, Plan of Care, Risk Factors For the Purpose of:: To improve self management Therapeutic Exercise to Include: Strength training, Flexibilty training, Gait and locomotor training, Neuromotor development, In an aquatic setting For the Purpose of:: To decrease pain, To increase ROM, To improve muscle performance and motor function, To increase tolerance to activity/condition/position, To improve ability of physical actions for home/com munity/work/leisure, To improve gait and locomotor functions Please do not hesitate to contact me at [phone] by phone or if you have questions or concerns regarding this new plan of care! Sincerely, Suki Jeff, PT, Cert MDT
--- NOTE | 2022-04-04 10:00 | HP.PTDCSUM ---
It has been my pleasure to treat ELEN ARMAS referred by Teo Ordonez PA-C, with the diagnosis of JENNIFER KNEE OA for a total of 18 visit(s). Discharge Date: 04/04/22 Please see the following information for a summary of their discharge status. Subjective: I'M GOING UP THE STAIRS BETTER. STATES SHE USE TO BE VERY DEPENDENT ON GRAB BARS AND SHOWER SEAT BUT NOW JUST LIGHT USE OF BARS AND NO SEAT. PATIENT REPORTS SHE IS REALLY HAPPY WITH THE THERAPY SHE HAS REC'D AND SHE IS HOPEFUL SHE CAN AVOID JENNIFER KNEE SURGERY FOR AT LEAST AWHILE. I FEEL REALLY GOOD. PATIENT REPORTS SHE HAS WRITTEN POOL AND HOME EX PROGRAMS. SHE REPORTS SHE HAS A PLAN TO USE OPEN SWIM TIMES AT OUR FACILITY AND TWO OTHERS. SHE FEELS READY TO CONTINUE ON HER OWN. RLE Pain Intensity (Out of 10): 0 LLE Pain Intensity (Out of 10): 0 LOW BACK Pain Intensity (Out of 10): 0 % Improvement: 90 Objective/Function: PATIENT WAS SEEN TODAY FOR RE-ASSESSMENT OF PROGRESS TOWARD THE SET PT GOALS AND THE NEED FOR FURTHER PHYSICAL THERAPY VS READINESS FOR DISCHARGE. ALL GOALS HAVE BEEN MET AND PATIENT IS APPROPRIATE FOR AND AGREEABLE TO DISCHARGE. UPON EXAM TODAY: ROM deficit: RIGHT KNEE: -13 DEG EXT TO 118 DEG FLEX IN SUPINE WITH A HEEL SLIDE. -26 TO 118 DEG FLEX LEFT. Motor deficit: JENNIFER LE'S: HIPS 4/5, KNEE'S 4/5 (IN AVAILABLE RANGE), ANKLES 5/5 Goal 1:: DECREASE C/O JENNIFER KNEE PAIN Goal Progress: Progressing Goal 2:: IMPROVE RISING FROM SITTING, STANDING AND WALKING FUNCTION INCLUDING ON STEPS. Goal Progress: Progressing Goal 3:: PATIENT WILL COMPLETE 7 STANDS IN 30 SECS TO DEMONSTRATE IMPROVED FUNCTIONAL STRENGTH Goal Progress: Goal Met Goal 4:: INCREASE JENNIFER KNEE FUNCTIONAL ROM TO EASE ADL'S Goal Progress: Progressing Goal 5:: INCRASE JENNIFER KNEE FUNCTIONAL STRENGTH TO EASE ADL'S Goal Progress: Progressing Goal 6:: PATIENT WILL BE INDEP WITH WATER AND HOME EX PROGRAMS FOR CONTINUED IMPROVEMENT ONCE FORMAL PHYSICAL THERAPY CONSLUDES. Goal Progress: Progressing Plan: D/C TO INDEP WATER AND HOME EX AND PHYSICIAN FOLLOW UP NEEDED. PATIENT IS AGREEABLE. If there are questions or concerns regarding this patient's physical therapy, please feel free to call me at [phone]. Thank you for the referral of this patient. Sincerely, Suki Jeff, PT, Cert MDT Balance/Gait/Functional tests - Balance/Special Test Scores Lower Extremity Functional Score: 42 TUG Test Time Seconds: 9.96 Tug Test: <10 sec.=free mobile 30 Second Chair Rise Test Seconds: 11
== END 2022-04-04 19:00 | disposition home or self-care (01) ==
LOC: PT 09:30
PROVIDERS: PCP Family Medicine; Referring Provider Physician Assistant; Visit Provider Physician Assistant
DX: M17.0 Bilateral primary osteoarthritis of knee (principal)
CPT/HCPCS: 97113; 97162; 97164

== ENCOUNTER → 2022-04-07 | Outpatient (CLI) | payer MEDICARE, OTHER, SELFPAY ==
[2022-04-07 10:39] LABS: Absolute Lymphocyte Count 1.95 X10^3/uL (0.83-4.51); Absolute Neutrophil Count 4.4 X10^3/uL (2.0-7.7); Basophil# 0.04 X10^3/uL; Basophil% 0.6 % (0-1); Eosinophil# 0.21 X10^3/uL; Eosinophils% 2.9 % (0-5); Hematocrit 38.8 % (37-47); Hemoglobin 12.5 g/dL (12.0-15.0); Lymphocyte # 1.95 X10^3/ul (0.83-4.51); Lymphocyte % 26.9 % (19-41); Mean Corp Hgb Conc 32.2 g/dL (32-36); Mean Corpuscular Hgb 28.6 pg (27.0-32.0); Mean Corpuscular Volume 88.8 fL (81-99); Mean Platelet Vol. 11.5 fl (6.2-12.0); Monocyte# 0.59 X10^3/uL; Monocyte% 8.1 % (0-10); NRBC Flagged by Analyzer 0 % (0-5); Neutrophil # 4.43 X10^3/uL (2.7-7.7); Neutrophil % 61.1 % (47-70); Platelet Count 277 K/mm3 (150-450); RBC Distribution Width CV 14.7 % (11.6-14.6); RBC Distribution Width SD 48.6 fl (35.1-43.9); Red Blood Count 4.37 M/mm3 (4.2-5.4); White Blood Count 7.3 K/mm3 (4.4-11.0)
[2022-04-07 11:09] LABS: ALB/GLOB Ratio 0.7 RATIO (0.9-2.4); AST(SGOT) 19 U/L (15-37); Alanine Aminotransfer ALT/SGPT 28 U/L (13-56); Albumin, Serum 3.2 g/dL (3.2-5.0); Alkaline Phosphatase 109 U/L (45-117); Anion Gap 7 (5-15); BUN 20 mg/dL (7-18); BUN/Creat Ratio 21.7 RATIO (10-20); Calcium,Total 9.2 mg/dL (8.5-10.1); Chloride 104 mmol/L (98-107); Cholesterol 147 mg/dL (200); Creatinine, Serum 0.92 mg/dL (0.55-1.02); EST Glomerular Filtration Rate 64 mL/min (>60); Est Glom Filt Rate - Afr Amer 78 mL/min (>60); Ferritin 65 ng/mL (8-252); Globulin 4.4 g/dL (2.2-4.2); Glucose 128 mg/dL (74-106); High Density Lipoprotein 40 mg/dL; Iron 53 ug/dL (50-170); Iron Binding Capacity,Total 419 ug/dL (250-450); Potassium 3.9 mmol/L (3.5-5.1); Protein, Total 7.6 g/dL (6.4-8.2); Sodium Level 136 mmol/L (136-145); Triglycerides 106 mg/dL; Very Low Density Lipoprotein 21 mg/dL (5-40)
[2022-04-08 11:27] LABS: Hemoglobin A1c 5.6 % (3.8-5.6)
== END | disposition home or self-care (01) ==
LOC: MFPLAB 08:41
PROVIDERS: PCP Family Medicine; Referring Provider Family Medicine; Visit Provider Family Medicine
DX: I48.0 Paroxysmal atrial fibrillation (principal); E55.9 Vitamin D deficiency, unspecified; E78.00 Pure hypercholesterolemia, unspecified; R73.09 Other abnormal glucose
CPT/HCPCS: 36415; 80053; 80061; 82306; 82728; 83036; 83540; 83550; 83735; 85025

== ENCOUNTER 2022-05-03 09:00 | Outpatient (RCR) | payer SELFPAY | END 2022-05-16 23:59 | LOC: NS 09:00 | PROVIDERS: PCP Family Medicine; Referring Provider Family Medicine; Visit Provider Family Medicine | DX: Z71.3 Dietary counseling and surveillance (principal); E66.01 Morbid (severe) obesity due to excess calories; Z68.43 Body mass index [BMI] 50.0-59.9, adult | CPT/HCPCS: 97803 ==

== ENCOUNTER 2022-05-17 09:16 | Outpatient (RCR) | payer SELFPAY | END 2022-06-15 23:59 | LOC: NS 09:16 | PROVIDERS: PCP Family Medicine; Referring Provider Family Medicine; Visit Provider Family Medicine | DX: Z71.3 Dietary counseling and surveillance (principal); E66.01 Morbid (severe) obesity due to excess calories; Z68.43 Body mass index [BMI] 50.0-59.9, adult | CPT/HCPCS: 97803 ==

== ENCOUNTER 2022-08-04 16:45 | Inpatient (IN) | payer MEDICARE, OTHER, SELFPAY ==
[2022-08-04] VITALS (12 sets, daily range): BP systolic 105–146; BP diastolic 59–100; PULSE 87–143; RESP 18–22; TEMP 36.3–36.9; O2SAT 90–97; BMI 52.4; BMI 53.1
--- NOTE | 2022-08-04 17:49 | EKG12_ITS ---
Test Reason : DYSRHYTHMIA Blood Pressure : / mmHG Vent. Rate : 099 BPM Atrial Rate : 249 BPM P-R Int : 000 ms QRS Dur : 082 ms QT Int : 368 ms P-R-T Axes : 000 011 051 degrees QTc Int : 472 ms Atrial flutter with variable A-V block Nonspecific ST abnormality Abnormal ECG Confirmed by RACHEL EVERETT, HA ([id number]), general expeditor JIMBO LORENZO ([id number]) on 08/08/2022 10:36:03 AM Referred By: HAN Confirmed By:HA RAMOS MD
--- NOTE | 2022-08-04 17:50 | EDS_ITS ---
HPI History of Present Illness Chief Complaint: Shortness of Breath Narrative Narrative: 67-year-old female past medical history of obstructive sleep apnea, atrial flutter on Eliquis and carvedilol, presents with multiple somatic complaints that began approximately 15 hours ago. She states she awoke at 1:00 in the morning, and her upper airway wheezing. She felt chilled. She then began to break out in sweats. She noticed that her heart rate was in the 120's. She took an extra carvedilol without relief of her symptoms. Her symptoms have been ongoing all day. She had an episode of diarrhea. She felt short of breath. Her main concern was that she had the upper airway wheezing, not in her lungs, and her rapid heart rate with chills. She denies any cough. No sore throat or runny nose. She was unable to take her temperature. She called the squad because she needed to find out what was going on. [facility] Medical History Atrial fibrillation with rapid ventricular response Carotid artery stenosis Essential (primary) hypertension GERD (gastroesophageal reflux disease) (12/28/20) Hay fever Hyperlipidemia Knee pain Obesity Obstructive sleep apnea Ovarian cyst Paroxysmal atrial fibrillation (10/2019) Home Medications cholecalciferol (vitamin D3) 25 mcg (1,000 unit) chewable tablet (Vitamin D3) 2,000 unit PO DAILY vitamin 12/05/18 [History Last Taken Unknown] multivitamin 1 tab PO DAILY vitamin 11/30/20 [History Last Taken Unknown] ropinirole 1 mg tablet 2 mg PO QHS restless legs 11/30/20 [History Last Taken Unknown] apixaban 5 mg tablet 5 mg PO BID blood thinner 12/02/20 [History Last Taken Unknown] calcium carbonate 600 mg-vitamin D3 10 mcg (400 unit) tablet (Calcium 600 + D(3)) 1 tab PO DAILY supplement 12/27/20 [History Last Taken Unknown] cetirizine 10 mg capsule (Zyrtec) 10 mg PO DAILY PRN 09/27/21 [History Last Taken Unknown] omeprazole 20 mg capsule,delayed release 20 mg PO DAILY GERD 09/27/21 [History Last Taken Unknown] lisinopril 20 mg tablet 20 mg PO DAILY blood pressure 10/20/21 [History Last Taken Unknown] carvedilol 25 mg tablet (Coreg) 12.5 mg PO BID blood pressure 02/14/22 [History Last Taken Unknown] diltiazem HCl 120 mg capsule,24 hr,extended release 120 mg PO .PRN PRN tachycardia #30 caps 02/15/22 [Rx Last Taken Unknown] furosemide 40 mg tablet 40 mg PO BID diuectic 08/04/22 [History Last Taken Unknown] Allergy/AdvReac Type Severity Reaction Status Date / Time almond Allergy Rash Verified 08/04/22 16:46 Penicillins Allergy Rash Verified 08/04/22 16:46 shellfish derived Allergy angiodema Verified 08/04/22 16:46 sweet almond Allergy angiodema Verified 08/04/22 16:46 metoprolol AdvReac itching, Verified 08/04/22 16:46 fatigue, sob, leg edema Family History Mother Thyroid disorder Surgical History History of appendectomy History of left heart catheterization (12/28/20) History of tonsillectomy and adenoidectomy Social History household members: spouse housing: house Smoking Status: Never smoker alcohol intake: current alcohol intake frequency: holidays/special occasions only substance use type: does not use ROS ROS ED ROS Narrative Constitutional: No fever, positive chills. Positive sweating. HEENT: No sore throat. No neck pain. No loss of vision. No rhinorrhea. Cardiovascular: No chest pain. Positive rapid heart rate in the 120s/palpitations. No pedal edema. Respiratory: No cough, no shortness of breath. Abdominal: No abdominal pain. No nausea. No vomiting. 1 episode of diarrhea. Genitourinary: No dysuria. No hematuria. Musculoskeletal: No myalgias. No arthralgias. Neurologic: No headaches. No dizziness. No lightheadedness. Skin: No rash. No change in color. Psychiatric: No depression. No anxiety. EXAM Physical Exam Narrative Exam Narrative: Afebrile. Vital signs noted. HEENT: Normocephalic. Atraumatic. PERRL, EOMI. Neck soft and supple. No point tenderness or step off. Cardiovascular: Positive tachycardia. No murmurs, rubs, or gallops appreciated. Respiratory: No tachypnea. Lungs clear to auscultation bilaterally. No stridor or wheezing. Gastrointestinal: Abdomen soft, nontender, with normoactive bowel sounds. No re bound or guarding. Neurological: Awake. Alert. Nonfocal, nonlateralizing. Skin: No rash. Normal color. No pallor. Musculoskeletal: No pedal edema. Full range of motion extremities. Const Vital Signs: 08/04/22 16:46 08/04/22 19:32 08/04/22 19:57 Temperature 97.4 F L Temperature Source Temporal Pulse Rate 122 H 115 H Respiratory Rate 22 H 20 H Respiratory Effort Short of Breath Respiratory Depth Normal Respiratory Pattern Normal Blood Pressure 146/100 H 112/59 L Blood Pressure Mean 115 76 Pulse Ox 95 93 Oxygen Delivery Method Room Air Room Air Room Air 08/04/22 19:58 08/04/22 20:57 Temperature 98.2 F Temperature Source Temporal Pulse Rate 111 H 143 H Respiratory Rate 22 H Respiratory Effort Respiratory Depth Respiratory Pattern Blood Pressure 119/76 105/78 Blood Pressure Mean 90 87 Pulse Ox 93 Oxygen Delivery Method Room Air MDM MDM MDM Narrative Medical decision making narrative: Comprehensive work-up was pursued. She was swabbed for COVID and influenza. We will check an EKG to see if she is in atrial fibrillation with rapid ventricular response. She states she has history of CHF so BNP will be obtained along with CBC and BMP. I will obtain a high-sensitivity troponin given her multitude of symptoms. EKG was obtained and interpreted by myself. It shows atrial flutter at a ventricular rate of [address] bpm [address] acute [address] changes. No STEMI. I reviewed her laboratory work, she has an elevated white count of 17.9 which I think is nonspecific, hemoglobin stable at 11.9, hematocrit 38.3. Platelet count normal at 241. In review of her BMP, she has a BUN of 26 with a creatinine slightly elevated at 1.11/acute kidney injury. Potassium slightly elevated at 5.2, I do not feel it requires emergent treatment based on her EKG. Her BNP is slightly elevated at 546, but she states she has history of CHF. Of significance is her elevated high-sensitivity troponin of 1130. I think this is higher than normal for a creatinine of 1.11. She was treated as a non-STEMI. Patient had denied any chest pain recently, but did describe shortness of breath and malaise. I discussed the patient with Dr. Villagran with cardiology who agrees with administering heparin and having the patient admitted. Additionally, I discussed patient with Dr. Hollingsworth for admission to the PCU. Patient is in stable condition. Lab Data Attestation: I reviewed the patient's lab results. Labs: Laboratory Results - last 24 hr 08/04/22 08/04/22 08/04/22 18:25 18:25 18:25 WBC 17.9 H RBC 4.30 Hgb 11.9 L Hct 38.3 MCV 89.1 MCH 27.7 MCHC 31.1 L RDW Std Deviation 46.7 H RDW Coeff of Nnamdi 14.6 Plt Count 241 MPV 11.2 Immature Gran % (Auto) 0.600 Neut % (Auto) 80.4 H Lymph % (Auto) 12.6 L Gage % (Auto) 5.5 Eos % (Auto) 0.7 Baso % (Auto) 0.2 Absolute Neuts (auto) 14.4 H Absolute Lymphs (auto) 2.25 Nucleated RBC % 0 PT INR APTT Sodium 136 Potassium 5.2 H Chloride 105 Carbon Dioxide 25.0 Anion Gap 6 BUN 26 H Creatinine 1.11 H Estim Creat Clear Calc 43.65 Est GFR (MDRD) Af Amer 63 Est GFR (MDRD) Non-Af 52 L BUN/Creatinine Ratio 23.4 H Glucose 109 H Calcium 9.2 Magnesium Troponin I High Sens 1130 H* B-Natriuretic Peptide 546.9 H 08/04/22 08/04/22 19:25 19:40 WBC RBC Hgb Hct MCV MCH MCHC RDW Std Deviation RDW Coeff of Nnamdi Plt Count MPV Immature Gran % (Auto) Neut % (Auto) Lymph % (Auto) Gage % (Auto) Eos % (Auto) Baso % (Auto) Absolute Neuts (auto) Absolute Lymphs (auto) Nucleated RBC % PT 17.3 H INR 1.5 APTT 23.9 L Sodium Potassium Chloride Carbon Dioxide Anion Gap BUN Creatinine Estim Creat Clear Calc Est GFR (MDRD) Af Amer Est GFR (MDRD) Non-Af BUN/Creatinine Ratio Glucose Calcium Magnesium 2.3 Troponin I High Sens B-Natriuretic Peptide Radiography Diagnostic Testing: Clinical Impression(s) from Imaging Studies Chest X-Ray 08/04/22 19:05 IMPRESSION: There are no acute findings. Electronically Signed: Jesús Oneal MD at 19:34 EST Reading Location ID and State: [facility] / [place] , Service support , Discharge Plan Dx/Rx/DC Orders Clinical Impression: Non-ST elevated myocardial infarction (non-STEMI), Acute kidney injury, Atrial flutter Disposition Disposition: Acute Care Hospital [facility] Discharge Date/Time: 08/04/22 21:16
[2022-08-04 18:45] LABS: Absolute Lymphocyte Count 2.25 X10^3/uL (0.83-4.51); Absolute Neutrophil Count 14.4 X10^3/uL (2.0-7.7); Basophil# 0.04 X10^3/uL; Basophil% 0.2 % (0-1); Eosinophil# 0.13 X10^3/uL; Eosinophils% 0.7 % (0-5); Hematocrit 38.3 % (37-47); Hemoglobin 11.9 g/dL (12.0-15.0); Lymphocyte # 2.25 X10^3/ul (0.83-4.51); Lymphocyte % 12.6 % (19-41); Mean Corp Hgb Conc 31.1 g/dL (32-36); Mean Corpuscular Hgb 27.7 pg (27.0-32.0); Mean Corpuscular Volume 89.1 fL (81-99); Mean Platelet Vol. 11.2 fl (6.2-12.0); Monocyte# 0.98 X10^3/uL; Monocyte% 5.5 % (0-10); NRBC Flagged by Analyzer 0 % (0-5); Neutrophil # 14.41 X10^3/uL (2.7-7.7); Neutrophil % 80.4 % (47-70); Platelet Count 241 K/mm3 (150-450); RBC Distribution Width CV 14.6 % (11.6-14.6); RBC Distribution Width SD 46.7 fl (35.1-43.9); White Blood Count 17.9 K/mm3 (4.4-11.0)
[2022-08-04 18:52] LABS: BNP,B-Type NATRIURETIC PEPTIDE 546.9 pg/mL (0-100)
[2022-08-04 19:02] LABS: Anion Gap 6 (5-15); BUN 26 mg/dL (7-18); BUN/Creat Ratio 23.4 RATIO (10-20); Calcium,Total 9.2 mg/dL (8.5-10.1); Chloride 105 mmol/L (98-107); Creatinine, Serum 1.11 mg/dL (0.55-1.02); EST Glomerular Filtration Rate 52 mL/min (>60); Est Glom Filt Rate - Afr Amer 63 mL/min (>60); Estimated Creatinine Clearance 43.65 ml/min; Glucose 109 mg/dL (74-106); Potassium 5.2 mmol/L (3.5-5.1); Sodium Level 136 mmol/L (136-145); Troponin-I HS 1130 pg/mL (3.0-54.0)
--- NOTE | 2022-08-04 19:05 | RAD_ITS ---
STUDY: XR Chest 1 View 08/04/2022 7:01 PM REASON FOR EXAM: Female, 67 years old. CHEST PAIN shortness of breath COMPARISON: 10.8.21 TECHNIQUE: XR Chest 1 View FINDINGS: There is no demonstrated pleural abnormality. Normal heart size. Normal mediastinum. Normal laura. Prominent appearing increased interstitial lung markings. Normal visualized pulmonary arteries. There is atherosclerotic calcification of the aortic arch with tortuosity. There are diffuse degenerative changes of the visualized thoracic spine. There is degenerative osteoarthritis of the bilateral shoulders. There is no demonstrated abnormality of the visualized soft tissue structures of the upper abdomen. RAD/Chest 1 View (Portable) IMPRESSION: There are no acute findings. Electronically Signed: Jesús Oneal MD at 19:34 EST ,
[2022-08-04] MEDS: Heparin Injection (Vial) 5,000 UNIT/ML VIAL 4000 UNIT IV (19:37)
[2022-08-04] MEDS: HEPARIN/D5w 25,000 UNITS 25,000 UNITS/250 ML IV.SOLN. 10 UNITS CONT INF (19:38)
--- NOTE | 2022-08-04 19:40 | PCM.HP.STD ---
[facility] - General General Date of Admission: 08/04/22 Date of Service: 08/04/22 Chief Complaint: Shortness of breath HPI Narrative ELEN ARMAS, is a 67 F with a significant history of obstructive sleep apnea on home BiPAP; atrial fibrillation and heart failure who presents with shortness of breath. Her symptoms started with chills that woke her up from her sleep a1 AM on the day of presentation. Then she also had shortness of breath and felt wheezes coming from her upper chest. She was diaphoretic. She was thinking that a home BiPAP was making her symptoms worse so she took her BiPAP off. She did not feel palpitation however she checked her O2 sats and pulse with home pulse ox machine. Her heart rate was 128 and a pulse ox was 86%. Her pulse ox remained 86%. She took extra carvedilol. She was weak and continuously felt weak the entire day. Also she felt some mild chest tightness. Patient arrived to the emergency department at about4 PM on the same day of her symptoms. At the emergency department patient was found to be in a flutter with rapid ventricular response. Also her high sensitive troponins were severely elevated [facility] Medical History Atrial fibrillation with rapid ventricular response Carotid artery stenosis Essential (primary) hypertension GERD (gastroesophageal reflux disease) (12/28/20) Hay fever Hyperlipidemia Knee pain Obesity Obstructive sleep apnea Ovarian cyst Paroxysmal atrial fibrillation (10/2019) Home Medications cholecalciferol (vitamin D3) 25 mcg (1,000 unit) chewable tablet (Vitamin D3) 2,000 unit PO DAILY vitamin 12/05/18 [History Last Taken Unknown] multivitamin 1 tab PO DAILY vitamin 11/30/20 [History Last Taken Unknown] ropinirole 1 mg tablet 3 mg PO QHS restless legs 11/30/20 [History Last Taken Unknown] apixaban 5 mg tablet 5 mg PO BID blood thinner 12/02/20 [History Last Taken Unknown] calcium carbonate 600 mg-vitamin D3 10 mcg (400 unit) tablet (Calcium 600 + D(3)) 1 tab PO DAILY supplement 12/27/20 [History Last Taken Unknown] cetirizine 10 mg capsule (Zyrtec) 10 mg PO DAILY PRN Allergy Symptoms 09/27/21 [History Last Taken Unknown] omeprazole 20 mg capsule,delayed release 20 mg PO DAILY GERD 09/27/21 [History Last Taken Unknown] lisinopril 20 mg tablet 20 mg PO DAILY blood pressure 10/20/21 [History Last Taken Unknown] carvedilol 25 mg tablet (Coreg) 12.5 mg PO BID blood pressure 02/14/22 [History Last Taken Unknown] diltiazem HCl 120 mg capsule,24 hr,extended release 120 mg PO .PRN PRN tachycardia #30 caps 02/15/22 [Rx Last Taken Unknown] duloxetine 30 mg capsule,delayed release 30 mg PO DAILY fibromyalgia 08/04/22 [History Last Taken Unknown] furosemide 40 mg tablet 40 mg PO BID diuectic 08/04/22 [History Last Taken Unknown] Allergy/AdvReac Type Severity Reaction Status Date / Time almond Allergy Rash Verified 08/04/22 16:46 Penicillins Allergy Rash Verified 08/04/22 16:46 shellfish derived Allergy angiodema Verified 08/04/22 16:46 sweet almond Allergy angiodema Verified 08/04/22 16:46 metoprolol AdvReac itching, Verified 08/04/22 16:46 fatigue, sob, leg edema Family History Mother Thyroid disorder Surgical History History of appendectomy History of left heart catheterization (12/28/20) History of tonsillectomy and adenoidectomy Social History household members: spouse housing: house Smoking Status: Never smoker alcohol intake: current alcohol intake frequency: holidays/special occasions only substance use type: does not use ROS ROS Narrative Pertinent positives and pertinent negatives as noted in HPI. All other systems were reviewed and are negative Vital Signs Vital Signs Vital Signs: 08/04/22 16:46 08/04/22 19:32 Temperature 97.4 F L Temperature Source Temporal Pulse Rate 122 H 115 H Respiratory Rate 22 H 20 H Blood Pressure 146/100 H 112/59 L Blood Pressure Mean 115 76 Pulse Ox 95 93 Oxygen Delivery Method Room Air Room Air Weight Weight: 142.882 kg Body Mass Index (BMI) 52.4 Physical Exam Narrative Physical exam: General: Well-nourished, well-developed. Head: Normocephalic, atraumatic, no tenderness Eyes: Vision is grossly intact. EOMI ENT, no trauma, moist mucous membranes, no rhinorrhea Neck: Nontender, No thyromegaly. CVS: Tachycardia. S1-S2 present. No murmur, gallop or rub. Respiratory : clear to auscultation bilaterally, chest wall nontender, no wheezing Abdomen: Soft, nontender, nondistended, normal bowel sounds, no masses : Deferred Back: Nontender, no CVA tenderness, no midline spinal tenderness, deformities, step-offs Extremities: Nontender full range of motion, no trauma Skin: Normal color, no trauma, abrasions Neuro: Alert, oriented, cranial nerves II through XII grossly intact. Psychiatry: Normal mood. Normal affect. Not depressed. Not anxious. Results Lab / Micro Data Result Diagrams: 08/04/22 18:25 08/04/22 18:25 Labs: Laboratory Results - last 24 hr 08/04/22 18:25: WBC 17.9 H, RBC 4.30, Hgb 11.9 L, Hct 38.3, MCV 89.1, MCH 27.7, MCHC 31.1 L, RDW Std Deviation 46.7 H, RDW Coeff of Nnamdi 14.6, Plt Count 241, MPV 11.2, Immature Gran % (Auto) 0.600, Neut % (Auto) 80.4 H, Lymph % (Auto) 12.6 L, [place] % (Auto) 5.5, Eos % (Auto) 0.7, Baso % (Auto) 0.2, Absolute Neuts (auto) 14.4 H, Absolute Lymphs (auto) 2.25, Nucleated RBC % 0 08/04/22 18:25: Sodium 136, Potassium 5.2 H, Chloride 105, Carbon Dioxide 25.0, Anion Gap 6, BUN 26 H, Creatinine 1.11 H, Estim Creat Clear Calc 43.65, Est GFR (MDRD) Af Amer 63, Est GFR (MDRD) Non-Af 52 L, BUN/Creatinine Ratio 23.4 H, Glucose 109 H, Calcium 9.2, Troponin I High Sens 1130 H* 08/04/22 18:25: B-Natriuretic Peptide 546.9 H Radiology Impression Chest X-Ray 08/04/22 19:05 IMPRESSION: There are no acute findings. Electronically Signed: Jesús Oneal MD at 19:34 EST , Assessment & Plan Assessment/Plan (1) Non-STEMI (non-ST elevated myocardial infarction): (2) Atrial flutter with rapid ventricular response: (3) Hypercoagulability due to atrial fibrillation: PLAN: Plan Atrial flutter with rapid ventricular response/hypercoagulable state secondary to atrial fibrillation Emergency department doctor discussed the case with cardiology will because of non-STEMI recommended patient be started on heparin drip. Heparin drip started emergency department discontinue. Hold Eliquis. Serial cardiac enzymes Obtain echo Potassium is 5.2 Check magnesium Chest x-ray: Was independently interpreted and compared to previous. No acute changes seen. I agree radiology interpretation Consult [facility] Non-STEMI Initial high-sensitivity troponin was 1130. [address] on a monitored bed at stepdown progressive care unit Actual CXR image was independently visualized. No acute cardiopulmonary process was noted. I agree with radiologist interpretation. Aspirin 325 mg x 1 then 81 mg daily ordered. We will check lipid panel. High intensity statin ordered. Stat EKG as needed for chest pain Chronic heart failure Stable with stable chest x-ray and no edema DVT prophylaxis Not indicated as patient has been started on heparin drip. Charges/Coding Visit Charges Inpatient E&M: 91717 Init Hosp L3
[2022-08-04 20:03] LABS: International Normalized Ratio 1.5; Partial Thromboplast Time 23.9 Seconds (24.1-36.2); Prothrombin Time (Protime)PT. 17.3 SECONDS (11.7-14.9)
[2022-08-04 20:14] LABS: Magnesium 2.3 mg/dL (1.6-2.6)
[2022-08-04] MEDS: dilTIAZem 25 MG/5 ML Vial 10 MG IV BOLUS (20:59)
--- NOTE | 2022-08-04 21:23 | ECHOCS_ITS ---
Version 2 Reason For Study: Afib/Flutter Procedure This was a 2D Doppler, Color Flow transthoracic echocardiogram. The study was technically difficult. Contrast injection was performed. Exam performed portable in patient room. Left Ventricle Normal LV size. Left ventricular systolic function is lower limits of normal. The estimated ejection fraction is 50 %. No regional wall motion abnormalities noted. Right Ventricle Normal RV size. Normal systolic function. Atria The left atrium is mildly enlarged. Normal right atrium. Mitral Valve Normal mitral valve. Mild (1+) eccentric mitral valve insufficiency. Tricuspid Valve Normal tricuspid valve. Mild (1+) tricuspid valve insufficiency. Pulmonary artery systolic pressure is 34 mmHg. Aortic Valve The aortic valve is not well visualized. Pulmonic Valve Normal pulmonic valve. Great Vessels Normal aortic root. The pulmonary artery is normal size. Normal inferior vena cava. Pericardium/Pleural No pericardial effusion. Medication Diluted definity 2ml given slow IV push to enhance endocardial definition. MMode/2D Measurements & Calculations LVIDd: 4.9 cm IVSd: 1.4 cm Ao root diam: 3.6 cm LVIDs: 3.9 cm LVPWd: 0.93 cm LA dimension: 4.4 cm RVDd: 4.0 cm FS: 19.4 % LAV(MOD-bp): 83.4 ml LA A4 area: 23.8 cm2 RA A4 area: 19.9 cm2 LAV(MOD-bp) Indexed: 34.6 ml/m2 LAV(MOD-sp2): 84.4 ml LAV(MOD-sp4): 64.8 ml Doppler Measurements & Calculations MV E max navin: 123.4 cm/sec MV V2 max: 126.6 cm/sec Ao V2 max: 153.0 cm/sec MV max P.4 mmHg Ao max P.4 mmHg MV V2 mean: 65.7 cm/sec Ao V2 mean: 114.9 cm/sec MV mean P.2 mmHg Ao mean P.9 mmHg MV V2 VTI: 32.1 cm Ao V2 VTI: 32.0 cm AV (velocity ratio): 0.72 LV V1 max: 121.7 cm/sec PA V2 max: 67.1 cm/sec TR max navin: 276.0 cm/sec LV V1 max P.0 mmHg TR max P.5 mmHg LV V1 mean P.7 mmHg LV V1 mean: 90.1 cm/sec LV V1 VTI: 23.1 cm ECHO/Echo Complete W/ Contrast Interpretation Summary Normal LV size. Left ventricular systolic function is lower limits of normal. The estimated ejection fraction is 50 %. The left atrium is mildly enlarged. Pulmonary artery systolic pressure is 34 mmHg. Mild (1+) eccentric mitral valve insufficiency. Contrast injection was performed. Ordering Physician: Deondre Hollingsworth Referring Physician: Walter Mendez Performed By: Sohail Sawyer RCS
[2022-08-04 22:46] LABS: Troponin-I HS 783 pg/mL (3.0-54.0)
[2022-08-05] VITALS (25 sets, daily range): BP systolic 97–135; BP diastolic 57–99; PULSE 64–117; RESP 13–25; TEMP 36.4–37.2; O2SAT 87–99
[2022-08-05 01:03] LABS: Partial Thromboplast Time 43.1 Seconds (24.1-36.2)
[2022-08-05 01:17] LABS: Troponin-I HS 866 pg/mL (3.0-54.0)
[2022-08-05] MEDS: Aspirin 325 MG Tablet PO (01:43)
[2022-08-05] MEDS: Pramipexole Di-HCl 0.5 MG Tablet 1.5 MG PO ×2 (03:14→21:56)
[2022-08-05 07:13] LABS: Absolute Lymphocyte Count 1.68 X10^3/uL (0.83-4.51); Absolute Neutrophil Count 12.5 X10^3/uL (2.0-7.7); Basophil# 0.06 X10^3/uL; Basophil% 0.4 % (0-1); Eosinophil# 0.03 X10^3/uL; Eosinophils% 0.2 % (0-5); Hematocrit 35.3 % (37-47); Hemoglobin 11.2 g/dL (12.0-15.0); Lymphocyte # 1.68 X10^3/ul (0.83-4.51); Lymphocyte % 10.8 % (19-41); Mean Corp Hgb Conc 31.7 g/dL (32-36); Mean Corpuscular Hgb 28.3 pg (27.0-32.0); Mean Corpuscular Volume 89.1 fL (81-99); Mean Platelet Vol. 10.7 fl (6.2-12.0); Monocyte# 1.17 X10^3/uL; Monocyte% 7.5 % (0-10); NRBC Flagged by Analyzer 0 % (0-5); Neutrophil # 12.47 X10^3/uL (2.7-7.7); Neutrophil % 80.3 % (47-70); Platelet Count 224 K/mm3 (150-450); RBC Distribution Width CV 14.3 % (11.6-14.6); RBC Distribution Width SD 46.2 fl (35.1-43.9); Red Blood Count 3.96 M/mm3 (4.2-5.4); White Blood Count 15.5 K/mm3 (4.4-11.0)
[2022-08-05 07:55] LABS: Anion Gap 7 (5-15); BUN 22 mg/dL (7-18); Chloride 105 mmol/L (98-107); Cholesterol 147 mg/dL (200); Creatinine, Serum 0.96 mg/dL (0.55-1.02); EST Glomerular Filtration Rate 62 mL/min (>60); Est Glom Filt Rate - Afr Amer 75 mL/min (>60); Estimated Creatinine Clearance 50.47 ml/min; Glucose 125 mg/dL (74-106); High Density Lipoprotein 42 mg/dL; Sodium Level 137 mmol/L (136-145); Thyroid Stim Hormone (TSH) 1.68 uIU/mL (0.358-3.74); Triglycerides 141 mg/dL; Very Low Density Lipoprotein 28 mg/dL (5-40)
--- NOTE | 2022-08-05 08:00 | PCM.CONS.C ---
Assessment & Plan Assessment/Plan (1) Non-ST elevated myocardial infarction (non-STEMI): PLAN: She presents with elevated cardiac enzymes which I suspect is secondary to demand ischemia from the atrial fibrillation flutter with a rapid ventricular response rate. She underwent cardiac catheterization within the last year and a half which demonstrated nonobstructive coronary arteries. I would recommend continued evaluation of the above. (2) Atrial flutter with rapid ventricular response: PLAN: She does have evidence of atrial fibrillation flutter with a rapid ventricular response rate which is paroxysmal. She appears to be uncomfortable and symptomatic at this time. I would recommend that we perform a DC cardioversion and depending on the results further recommendations will be made. She may need a low-dose of an antiarrhythmic at this time. (3) Essential (primary) hypertension: PLAN: She does have a history of hypertension her blood pressure appears to be under fair control and I would not recommend that we make any changes. Thank you for allowing me to participate in the care of your patient. Please don't hesitate to call if any issues arise. HPI Consult Data Date of Consult: 08/05/22 HPI Narrative HPI Narrative: ELEN ARMAS, is a 67 F who presents to the emergency room with palpitations which she says she thinks started within the last 12 hours. She has a history of hypertension, hyperlipidemia, obesity, obstructive sleep apnea, thyroid disease who had presented with palpitations which started in mid September 2020 and was noted to have atrial fibrillation.? She was started on beta-himanshu as well as Eliquis.? An event monitor was placed which did demonstrate evidence of atrial fibrillation which was paroxysmal.? She has been using a BiPAP mask.? She underwent a cardiac catheterization which did not demonstrate any obstructive coronary disease. She did have an echocardiogram performed in December 2018 which demonstrated evidence of mild left atrial enlargement, stage I diastolic dysfunction, and an estimated EF of 65%.? She underwent an echocardiogram in September 2021 and during such test she was noted to be in atrial fibrillation at an elevated rate.? Her Coreg was adjusted. EKG on 02/08/2022 and off this showed atrial flutter with an elevated rate at 132 bpm. She tried deep breathing and took extra 12.5mg of Coreg. She denies chest pain. She states an increase in SOB with activity since palpitations and acknowledges SOB with exertion at baseline. She denies bilateral lower extremity edema. She intermittent lightheadedness. She denies dizziness, pre-syncope, or syncope. She denies bleeding concerns. She has not skipped or forgotten anticoagulation. She has been wearing Bipap consistently. In the emergency room she was noted to be in atrial fibrillation with rapid ventricular response rate was started on intravenous heparin and intravenous diltiazem. [facility] Medical History Atrial fibrillation with rapid ventricular response Carotid artery stenosis Essential (primary) hypertension GERD (gastroesophageal reflux disease) (12/28/20) Hay fever Hyperlipidemia Knee pain Obesity Obstructive sleep apnea Ovarian cyst Paroxysmal atrial fibrillation (10/2019) Home Medications cholecalciferol (vitamin D3) 25 mcg (1,000 unit) chewable tablet (Vitamin D3) 2,000 unit PO DAILY vitamin 12/05/18 [History Last Taken Unknown] multivitamin 1 tab PO DAILY vitamin 11/30/20 [History Last Taken Unknown] ropinirole 1 mg tablet 3 mg PO QHS restless legs 11/30/20 [History Last Taken Unknown] apixaban 5 mg tablet 5 mg PO BID blood thinner 12/02/20 [History Last Taken Unknown] calcium carbonate 600 mg-vitamin D3 10 mcg (400 unit) tablet (Calcium 600 + D(3)) 1 tab PO DAILY supplement 12/27/20 [History Last Taken Unknown] cetirizine 10 mg capsule (Zyrtec) 10 mg PO DAILY PRN Allergy Symptoms 09/27/21 [History Last Taken Unknown] omeprazole 20 mg capsule,delayed release 20 mg PO DAILY GERD 09/27/21 [History Last Taken Unknown] lisinopril 20 mg tablet 20 mg PO DAILY blood pressure 10/20/21 [History Last Taken Unknown] carvedilol 25 mg tablet (Coreg) 12.5 mg PO BID blood pressure 02/14/22 [History Last Taken Unknown] diltiazem HCl 120 mg capsule,24 hr,extended release 120 mg PO .PRN PRN tachycardia #30 caps 02/15/22 [Rx Last Taken Unknown] duloxetine 30 mg capsule,delayed release 30 mg PO DAILY fibromyalgia 08/04/22 [History Last Taken Unknown] furosemide 40 mg tablet 40 mg PO BID diuectic 08/04/22 [History Last Taken Unknown] Allergy/AdvReac Type Severity Reaction Status Date / Time almond Allergy Rash Verified 08/04/22 16:46 Penicillins Allergy Rash Verified 08/04/22 16:46 shellfish derived Allergy angiodema Verified 08/04/22 16:46 sweet almond Allergy angiodema Verified 08/04/22 16:46 metoprolol AdvReac itching, Verified 08/04/22 16:46 fatigue, sob, leg edema Family History Mother Thyroid disorder Surgical History History of appendectomy History of left heart catheterization (12/28/20) History of tonsillectomy and adenoidectomy Social History household members: spouse housing: house Smoking Status: Never smoker alcohol intake: current alcohol intake frequency: holidays/special occasions only substance use type: does not use ROS Constitutional Constitutional: Denies fever(s) or weight loss Eyes Eyes: Reports systems reviewed and no addt'l complaints, except as documented ENT HEENT: Reports systems reviewed and no addt'l complaints, except as documented Cardiovascular Cardiovascular: Reports palpitations; Denies chest pain at rest, chest pain with activity, dyspnea at rest, dyspnea on exertion, edema or paroxysmal nocturnal dyspnea Respiratory/Chest Respiratory/Chest: Denies dyspnea on exertion, productive cough, shortness of breath at rest or shortness of breath with exertion Gastrointestinal Gastrointestinal: Denies change in bowel habits, nausea, vomiting or weight changes Genitourinary Genitourinary: Denies difficulty urinating Musculoskeletal Musculoskeletal: Denies joint stiffness or muscle weakness Integumentary Integumentary: Denies lesions Neurologic Neurologic: Denies dizziness or syncope Psychiatric Psychiatric: Denies anxiety Endocrine Endocrinology: Denies excessive sweating or fatigue Hematologic/Lymphatic Hematologic/Lymphatic: Denies anemia Allergic/Immunologic Allergic/Immunologic: Denies seasonal rhinorrhea Physical Exam Const alert, oriented x3 and no apparent distress General Appearance: cooperative HEENT hearing grossly normal bilaterally Head and Scalp: atraumatic Eyes EOMs intact bilaterally Neck General: normal visual inspection Chest inspection of chest normal and palpation of chest normal Resp normal respiratory effort Auscultation: clear to auscultation bilaterally Cardio S1 normal heart sound and S2 normal heart sound Jugular Venous Distention: JVD Rhythm: abnormal rhythm irregularly irregular GI normal to inspection, nondistended, normoactive bowel sounds Extremity normal capillary refill and no pedal edema Peripheral Pulses: Yes pulses 2+ throughout and femoral pulses present Skin no rashes or lesions noted Neuro oriented x3 and CN's II-XII intact bilaterally Psych Appearance: grossly normal and appropriate Risk Stratification Risk Stratification Applicable: No Objective Data Vital Signs: Vital Signs Temp Pulse Resp BP Pulse Ox O2 Del Method O2 Flow Rate 98.5 F 87 20 H 131/74 H 95 Nasal Cannula 4 08/04/22 23:00 08/05/22 06:30 08/05/22 06:30 08/05/22 06:30 08/05/22 06:30 08/05/22 06:30 08/05/22 06:30 Oxygen Flow Rate (L/min) 4 Oxygen Delivery Method Nasal Cannula Weight: 319 lb 7.197 oz Body Mass Index (BMI) 53.1 Intake & Output: Intake and Output for Last 24 Hours 08/03/22 08/04/22 08/05/22 23:59 23:59 23:59 Intake Total 12.75 / 15.25 106.51 / 106.51 Balance 12.75 / 15.25 106.51 / 106.51 Lab / Micro Data Result Diagrams: 08/05/22 07:00 08/05/22 07:00 Labs: Laboratory Results - last 24 hr 08/04/22 18:25: WBC 17.9 H, RBC 4.30, Hgb 11.9 L, Hct 38.3, MCV 89.1, MCH 27.7, MCHC 31.1 L, RDW Std Deviation 46.7 H, RDW Coeff of Nnamdi 14.6, Plt Count 241, MPV 11.2, Immature Gran % (Auto) 0.600, Neut % (Auto) 80.4 H, Lymph % (Auto) 12.6 L, [place] % (Auto) 5.5, Eos % (Auto) 0.7, Baso % (Auto) 0.2, Absolute Neuts (auto) 14.4 H, Absolute Lymphs (auto) 2.25, Nucleated RBC % 0 08/04/22 18:25: Sodium 136, Potassium 5.2 H, Chloride 105, Carbon Dioxide 25.0, Anion Gap 6, BUN 26 H, Creatinine 1.11 H, Estim Creat Clear Calc 43.65, Est GFR (MDRD) Af Amer 63, Est GFR (MDRD) Non-Af 52 L, BUN/Creatinine Ratio 23.4 H, Glucose 109 H, Calcium 9.2, Troponin I High Sens 1130 H* 08/04/22 18:25: B-Natriuretic Peptide 546.9 H 08/04/22 19:25: Magnesium 2.3 08/04/22 19:40: PT 17.3 H, INR 1.5, APTT 23.9 L 08/04/22 21:55: Troponin I High Sens 783 H* 08/05/22 00:45: Troponin I High Sens 866 H* 08/05/22 00:45: APTT 43.1 H 08/05/22 07:00: WBC 15.5 H, RBC 3.96 L, Hgb 11.2 L, Hct 35.3 L, MCV 89.1, MCH 28.3, MCHC 31.7 L, RDW Std Deviation 46.2 H, RDW Coeff of Nnamdi 14.3, Plt Count 224, MPV 10.7, Immature Gran % (Auto) 0.800, Neut % (Auto) 80.3 H, Lymph % (Auto) 10.8 L, [place] % (Auto) 7.5, Eos % (Auto) 0.2, Baso % (Auto) 0.4, Absolute Neuts (auto) 12.5 H, Absolute Lymphs (auto) 1.68, Nucleated RBC % 0 08/05/22 07:00: Sodium 137, Potassium 4.0, Chloride 105, Carbon Dioxide 25.0, Anion Gap 7, BUN 22 H, Creatinine 0.96, Estim Creat Clear Calc 50.47, Est GFR (MDRD) Af Amer 75, Est GFR (MDRD) Non-Af 62, BUN/Creatinine Ratio 23.0 H, Glucose 125 H, Calcium 9.0, Triglycerides 141, Cholesterol 147, LDL Cholesterol 77, VLDL Cholesterol 28, HDL Cholesterol 42, TSH 1.68 08/05/22 07:00: APTT 41.0 H Micro: Microbiology 08/04/22 19:01 Nasal Secretion SARS-CoV-2 & FLU Antigen (Rapid) - Final Cardiology Labs/Tests 08/04/22 18:25: WBC 17.9 H, RBC 4.30, Hgb 11.9 L, Hct 38.3, MCV 89.1, MCH 27.7, MCHC 31.1 L, Plt Count 241, MPV 11.2, Immature Gran % (Auto) 0.600, Neut % (Auto) 80.4 H, Lymph % (Auto) 12.6 L, [place] % (Auto) 5.5, Eos % (Auto) 0.7, Baso % (Auto) 0.2, Absolute Neuts (auto) 14.4 H, Nucleated RBC % 0 08/04/22 18:25: Sodium 136, Potassium 5.2 H, Chloride 105, Carbon Dioxide 25.0, Anion Gap 6, BUN 26 H, Creatinine 1.11 H, Est GFR (MDRD) Af Amer 63, Est GFR (MDRD) Non-Af 52 L, BUN/Creatinine Ratio 23.4 H, Glucose 109 H, Calcium 9.2 08/04/22 18:25: B-Natriuretic Peptide 546.9 H 08/04/22 19:25: Magnesium 2.3 08/04/22 19:40: PT 17.3 H, INR 1.5, APTT 23.9 L 08/05/22 00:45: APTT 43.1 H 08/05/22 07:00: WBC 15.5 H, RBC 3.96 L, Hgb 11.2 L, Hct 35.3 L, MCV 89.1, MCH 28.3, MCHC 31.7 L, Plt Count 224, MPV 10.7, Immature Gran % (Auto) 0.800, Neut % (Auto) 80.3 H, Lymph % (Auto) 10.8 L, [place] % (Auto) 7.5, Eos % (Auto) 0.2, Baso % (Auto) 0.4, Absolute Neuts (auto) 12.5 H, Nucleated RBC % 0 08/05/22 07:00: Sodium 137, Potassium 4.0, Chloride 105, Carbon Dioxide 25.0, Anion Gap 7, BUN 22 H, Creatinine 0.96, Est GFR (MDRD) Af Amer 75, Est GFR (MDRD) Non-Af 62, BUN/Creatinine Ratio 23.0 H, Glucose 125 H, Calcium 9.0, Triglycerides 141, Cholesterol 147, LDL Cholesterol 77, VLDL Cholesterol 28, HDL Cholesterol 42 08/05/22 07:00: APTT 41.0 H Rhythm: EKG: ECHO: Stress Test: Cardiac Cath: PCI: CT Surgery: Holter monitor: EPS: PPM: CXR: Chest CT Scan: Radiography Diagnostic Testing: Radiology Impression Chest X-Ray 08/04/22 19:05 IMPRESSION: There are no acute findings. Electronically Signed: Jesús Oneal MD at 19:34 EST Reading Location ID and State: [facility] / [place] , Service support ,
--- NOTE | 2022-08-05 08:07 | EKG12_ITS ---
Test Reason : POST MED Blood Pressure : / mmHG Vent. Rate : 060 BPM Atrial Rate : 060 BPM P-R Int : 190 ms QRS Dur : 086 ms QT Int : 454 ms P-R-T Axes : -27 020 088 degrees QTc Int : 454 ms Normal sinus rhythm Low voltage QRS Borderline ECG When compared with ECG of 06-AUG-2022 23:13, MANUAL COMPARISON REQUIRED, DATA IS UNCONFIRMED Confirmed by RACHEL EVERETT, HA ([id number]), publishing editor JIMBO LORENZO ([id number]) on 08/09/2022 11:30:58 AM Referred By: Confirmed By:HA RAMOS MD
[2022-08-05] MEDS: Lisinopril 20 MG Tablet PO (09:18)
[2022-08-05] MEDS: Carvedilol 12.5 MG Tablet PO (09:18)
[2022-08-05] MEDS: APIXABAN 5 MG TABLET PO ×2 (09:20→21:56)
--- NOTE | 2022-08-05 11:20 | PCM.PN.HOSP ---
Subjective Subjective Follow-up on acute non-STEMI/A. fib with RVR: Patient was seen and examined. Patient underwent cardioversion today remains in normal sinus rhythm. Objective Data Objective Data Vital Signs: Vital Signs Temp Pulse Resp BP Pulse Ox O2 Del Method O2 Flow Rate 98.0 F 87 20 H 131/74 H 92 Nasal Cannula 4 08/05/22 06:30 08/05/22 06:30 08/05/22 06:30 08/05/22 06:30 08/05/22 07:47 08/05/22 10:00 08/05/22 10:00 Oxygen Flow Rate (L/min) 4 Oxygen Delivery Method Nasal Cannula Weight: 144.9 kg Body Mass Index (BMI) 53.1 Intake & Output: Intake and Output for Last 24 Hours 08/03/22 08/04/22 08/05/22 23:59 23:59 23:59 Intake Total 12.75 / 15.25 273.19 / 273.19 Balance 12.75 / 15.25 273.19 / 273.19 Lab / Micro Data Result Diagrams: 08/05/22 07:00 08/05/22 07:00 Labs: Laboratory Results - last 24 hr 08/04/22 18:25: WBC 17.9 H, RBC 4.30, Hgb 11.9 L, Hct 38.3, MCV 89.1, MCH 27.7, MCHC 31.1 L, RDW Std Deviation 46.7 H, RDW Coeff of Nnamdi 14.6, Plt Count 241, MPV 11.2, Immature Gran % (Auto) 0.600, Neut % (Auto) 80.4 H, Lymph % (Auto) 12.6 L, [place] % (Auto) 5.5, Eos % (Auto) 0.7, Baso % (Auto) 0.2, Absolute Neuts (auto) 14.4 H, Absolute Lymphs (auto) 2.25, Nucleated RBC % 0 08/04/22 18:25: Sodium 136, Potassium 5.2 H, Chloride 105, Carbon Dioxide 25.0, Anion Gap 6, BUN 26 H, Creatinine 1.11 H, Estim Creat Clear Calc 43.65, Est GFR (MDRD) Af Amer 63, Est GFR (MDRD) Non-Af 52 L, BUN/Creatinine Ratio 23.4 H, Glucose 109 H, Calcium 9.2, Troponin I High Sens 1130 H* 08/04/22 18:25: B-Natriuretic Peptide 546.9 H 08/04/22 19:25: Magnesium 2.3 08/04/22 19:40: PT 17.3 H, INR 1.5, APTT 23.9 L 08/04/22 21:55: Troponin I High Sens 783 H* 08/05/22 00:45: Troponin I High Sens 866 H* 08/05/22 00:45: APTT 43.1 H 08/05/22 07:00: WBC 15.5 H, RBC 3.96 L, Hgb 11.2 L, Hct 35.3 L, MCV 89.1, MCH 28.3, MCHC 31.7 L, RDW Std Deviation 46.2 H, RDW Coeff of Nnamdi 14.3, Plt Count 224, MPV 10.7, Immature Gran % (Auto) 0.800, Neut % (Auto) 80.3 H, Lymph % (Auto) 10.8 L, [place] % (Auto) 7.5, Eos % (Auto) 0.2, Baso % (Auto) 0.4, Absolute Neuts (auto) 12.5 H, Absolute Lymphs (auto) 1.68, Nucleated RBC % 0 08/05/22 07:00: Sodium 137, Potassium 4.0, Chloride 105, Carbon Dioxide 25.0, Anion Gap 7, BUN 22 H, Creatinine 0.96, Estim Creat Clear Calc 50.47, Est GFR (MDRD) Af Amer 75, Est GFR (MDRD) Non-Af 62, BUN/Creatinine Ratio 23.0 H, Glucose 125 H, Calcium 9.0, Triglycerides 141, Cholesterol 147, LDL Cholesterol 77, VLDL Cholesterol 28, HDL Cholesterol 42, TSH 1.68 08/05/22 07:00: APTT 41.0 H Micro: Microbiology 08/04/22 19:01 Nasal Secretion SARS-CoV-2 & FLU Antigen (Rapid) - Final Radiography Diagnostic Testing: Radiology Impression Chest X-Ray 08/04/22 19:05 IMPRESSION: There are no acute findings. Electronically Signed: Jesús Oneal MD at 19:34 EST Reading Location ID and State: [facility] / [place] , Service support , Physical Exam Narrative Physical exam: General: Alert, Oriented x3, Cooperative, No apparent distress HEENT: Atraumatic Oral: Moist Mucosa Neck: Supple Lungs: Clear to auscultation Cardiovascular: HS I+II, regular, no murmurs Abdomen: Bowel Sounds Present, Soft, Non Tender Extremities: No edema Skin: No rashes, No breakdown Neurological: Grossly intact Psych/Mental Status: Appropriate Assessment & Plan Assessment/Plan (1) Non-STEMI (non-ST elevated myocardial infarction): (2) Atrial flutter with rapid ventricular response: (3) Hypercoagulability due to atrial fibrillation: PLAN: Plan 1. Atrial flutter with RVR, status post DC cardioversion, normal sinus rhythm Cardiology following, continue on sotalol, apixaban 2. Acute NSTEMI, likely type II secondary to #1 Cardiology following, continue treatment as #1 3. Acute on chronic heart failure with reduced EF, EF 50%, mild Likely exacerbated by #1 BNPep>500, continue on home dose for now 4. Hypertension/hyperlipidemia, continue on apixaban, lisinopril, sotalol 5. DVT prophylaxis - on apixaban Charges/Coding Visit Charges Inpatient E&M: 42748 Subs Hosp L2
--- NOTE | 2022-08-05 12:05 | PCM.OP.BLANK ---
Operative Report Date of Procedure: 08/05/22 DC cardioversion Symptomatic atrial fibrillation. 67-year-old lady with a history of paroxysmal atrial fibrillation. Patient has been anticoagulated continuously and also was put on heparin. After informed consent was was obtained the patient was seen by Dr. Alves of the critical care division. The patient was then administered 60 mg of intravenous propofol. 200 J of synchronized DC cardioversion energy were applied with prompt reversal to sinus rhythm. Patient tolerated the procedure well was noted to be in sinus rhythm. Conclusion: Successful DC cardioversion from atrial fibrillation to sinus rhythm. Will discuss further plans.
--- NOTE | 2022-08-05 12:44 | CASEMGMT ---
Social Work LW/POA both scanned into summary tab of [facility], Jose Luis Beltrán is listed as medical POA. NINFA Silver
--- NOTE | 2022-08-05 13:20 | PCM.OP.PRO ---
Assessment & Plan Assessment/Plan (1) Atrial flutter: (2) Persistent atrial fibrillation: Procedure Report Date of Procedure: 08/05/22 CONSCIOUS SEDATION REPORT BRIEF HISTORY OF PRESENT ILLNESS: The patient is a 67-year-old female who presented to [facility] on 08/04/2022 secondary to A. fib with RVR due to underlying atrial fibrillation. The patient reports no PO intake since midnight, but is currently therapeutic on anticoagulation. Patient was on Cardizem at the time of the procedure. The patient does have a history of obstructive sleep apnea and is compliant with therapy. The patient reports no history of smoking or COPD. The patient denies any recent constitutional symptoms such as fevers, chills, nausea or vomiting. The patient denies previous applicable anesthetic complications. PHYSICAL EXAMINATION: VITAL SIGNS: Reviewed and were acceptable. GENERAL: The patient is a female, in no apparent distress, speaking in full sentences. HEENT: Normocephalic, atraumatic. Mucous membranes are moist and pink. Good mouth opening noted. Trachea is midline. Good neck mobility. MP III CHEST: S1, S2 irregularly irregular. No murmurs, rubs or gallops were noted. LUNGS: Clear to auscultation bilaterally without appreciable wheezes, rales or rhonchi. ABDOMEN: Soft, nontender, nondistended. Positive bowel sounds. EXTREMITIES: There is no clubbing, cyanosis or edema. ASA Class: II DESCRIPTION OF PROCEDURE: After confirmation of informed consent, the patient's anesthesia plan was reviewed in detail. Propofol was chosen. Risks and benefits were reviewed and the patient agreed to proceed. At 12 PM, the patient was given 40 mg of propofol. The patient required a total of 60 mg of propofol throughout the procedure to achieve appropriate sedation. The patient achieved an appropriate level of sedation and received 1 attempt synchronized cardioversion, at [address] Lambert at the bedside. This was successful in achieving normal sinus rhythm. The patient was monitored until 12:15 PM, at which time the patient reached their baseline mental status and function. The patient tolerated the procedure well. COMPLICATIONS: None ESTIMATED BLOOD LOSS: None RECOMMENDATIONS: Okay to recover in usual fashion. Procedures Pulmonary 9xxxx: 43711 Con Sedation
--- NOTE | 2022-08-05 15:00 | CASEMGMT ---
RN MICHEL LEGAL JOB TITLES CM to room to meet with patient for initial transition planning/care coordination assessment. RN MICHEL introduced self and role at [facility]. Pt voices understanding and consents to assessment at this time. Pt resting in bed in no distress at this time. @ bedside. Pt is A/O at this time and answers all questions appropriately. Care providers, pharmacy, and demographics verified/updated at this time. PCP: Dr Mendez Specialists:Dr Lambert-cardiology, Dr Howard-pain mgmt, Dr Meraz-hematology Preferred Pharmacy: [facility] [place] Insurance:MCR, MMO Prescription Benefit: Yes Living Will/HPOA: Has both LW and HCPOA, who is her , Jose Luis LNOK: , Jose Luis Living Arrangements: Lives w/ in one-story home w/basement. 2 steps to enter. Pt able to navigate stairs well, but does carry groceries and laundry up/down stairs for her. Pt states she is indep w/ADL's and IADL's @ baseline. able to assist as needed. Transportation: Pt states drives self and states no transportation concerns at this time. also drives. DME: [facility] grab [facility] HHC/SNF: No hx of either. No needs identified. Pt declines need for HHC. Pt wishes to return home and states has no concerns with going home at time of discharge. CM to follow for any discharge planning/needs. Pt voices no concerns/needs at this time. Advised pt to ask for CM if any questions/concerns/needs arise. Voices understanding. PLAN: Home w/spousal support and discharge plans in place. Carolyn CHIU RN, CM
[2022-08-05] MEDS: Furosemide 40 MG Tablet PO (16:43)
[2022-08-05] MEDS: Sotalol Hydrochloride 80 MG Tablet PO (17:36)
--- NOTE | 2022-08-05 20:00 | EKG12_ITS ---
Test Reason : TIMED EKG Blood Pressure : / mmHG Vent. Rate : 065 BPM Atrial Rate : 065 BPM P-R Int : 198 ms QRS Dur : 090 ms QT Int : 408 ms P-R-T Axes : 054 032 075 degrees QTc Int : 424 ms Normal sinus rhythm Normal ECG When compared with ECG of 06-AUG-2022 12:58, MANUAL COMPARISON REQUIRED, DATA IS UNCONFIRMED Confirmed by RACHEL EVERETT, HA ([id number]), video news editor JIMBO LORENZO ([id number]) on 08/09/2022 11:32:25 AM Referred By: Confirmed By:HA RAMOS MD
[2022-08-05] MEDS: Atorvastatin Calcium 40 MG Tablet PO (21:56)
[2022-08-06 03:02] VITALS: PULSE 66
[2022-08-06 03:25] VITALS: BP 122/84; PULSE 64; RESP 18; TEMP 36.5; O2SAT 94
[2022-08-06] MEDS: Pantoprazole Sodium 20 MG Tablet PO (08:55)
[2022-08-06] MEDS: Multivitamins,Therapeutic Tablet 1 TABLET PO (08:55)
[2022-08-06] MEDS: Calcium Carb/Vitamin D 1 TABLET Tablet PO (08:56)
[2022-08-06] MEDS: Aspirin 81 MG TAB.CHEW PO (08:56)
[2022-08-06 09:46] VITALS: BP 122/68; PULSE 77; RESP 18; TEMP 37.3; O2SAT 97
[2022-08-06] MEDS: APIXABAN 5 MG TABLET PO ×2 (09:49→21:05)
[2022-08-06] MEDS: Furosemide 40 MG Tablet PO ×2 (09:49→17:40)
[2022-08-06] MEDS: Sotalol Hydrochloride 80 MG Tablet PO ×2 (09:50→21:05)
[2022-08-06] MEDS: DULoxetine Hcl 30 MG Capsule PO (09:50)
[2022-08-06] MEDS: Cholecalciferol (VIT D3) 25 MCG TABLET (1,000 UNITS) 50 MCG PO (09:50)
[2022-08-06] MEDS: Lisinopril 20 MG Tablet PO (09:51)
--- NOTE | 2022-08-06 11:24 | PN.CARD_ITS ---
Subjective Subjective Patient seen and evaluated. Appears to be doing well. Mildly short of breath but no other complaints. Objective Data Vital Signs: Vital Signs Temp Pulse Resp BP Pulse Ox O2 Del Method O2 Flow Rate 99.1 F 77 18 122/68 H 97 Nasal Cannula 2 08/06/22 09:46 08/06/22 09:46 08/06/22 09:46 08/06/22 09:46 08/06/22 09:46 08/06/22 09:46 08/06/22 09:46 Oxygen Flow Rate (L/min) 2 Oxygen Delivery Method Nasal Cannula Weight: 319 lb 7.197 oz Body Mass Index (BMI) 53.1 Intake & Output: Intake and Output for Last 24 Hours 08/04/22 08/05/22 08/06/22 23:59 23:59 23:59 Intake Total 12.75 / 15.25 848.86 / 848.86 240 / 240 Balance 12.75 / 15.25 848.86 / 848.86 240 / 240 Lab / Micro Data Result Diagrams: 08/07/22 05:22 08/07/22 05:22 Cardiology Labs/Tests Rhythm: EKG: ECHO: Stress Test: Cardiac Cath: PCI: CT Surgery: Holter monitor: EPS: PPM: CXR: Chest CT Scan: Radiography Diagnostic Testing: Radiology Impression Echocardiogram 08/04/22 21:23 Interpretation Summary Normal LV size. Left ventricular systolic function is lower limits of normal. The estimated ejection fraction is 50 %. The left atrium is mildly enlarged. Pulmonary artery systolic pressure is 34 mmHg. Mild (1+) eccentric mitral valve insufficiency. Contrast injection was performed. Ordering Physician: Deondre Hollingsworth Referring Physician: Walter Mendez Performed By: Sohail Sawyer RCS Physical Exam Const alert, oriented x3 and no apparent distress General Appearance: cooperative HEENT hearing grossly normal bilaterally Head and Scalp: atraumatic Eyes EOMs intact bilaterally Neck General: normal visual inspection Chest inspection of chest normal and palpation of chest normal Resp normal respiratory effort Auscultation: clear to auscultation bilaterally Cardio S1 normal heart sound and S2 normal heart sound Jugular Venous Distention: JVD Rhythm: abnormal rhythm irregularly irregular GI normal to inspection, nondistended, normoactive bowel sounds Extremity normal capillary refill and no pedal edema Peripheral Pulses: Yes pulses 2+ throughout and femoral pulses present Skin no rashes or lesions noted Neuro oriented x3 and CN's II-XII intact bilaterally Psych Appearance: grossly normal and appropriate Assessment & Plan Assessment/Plan (1) Non-ST elevated myocardial infarction (non-STEMI): PLAN: She presents with elevated cardiac enzymes which I suspect is secondary to demand ischemia from the atrial fibrillation flutter with a rapid ventricular response rate. She underwent cardiac catheterization within the last year and a half which demonstrated nonobstructive coronary arteries. I would recommend continued evaluation of the above. (2) Atrial flutter with rapid ventricular response: PLAN: She does have evidence of atrial fibrillation flutter with a rapid ventri cular response rate which is paroxysmal. * She had a DC cardioversion performed and is maintaining sinus rhythm. * She has been started on sotalol which she is tolerating thus far * No EKG abnormalities noted. (3) Essential (primary) hypertension: PLAN: She does have a history of hypertension her blood pressure appears to be under fair control and I would not recommend that we make any changes. Thank you for allowing me to participate in the care of your patient. Please don't hesitate to call if any issues arise.
--- NOTE | 2022-08-06 12:13 | PCM.PN.HOSP ---
Subjective Subjective Follow-up on acute non-STEMI/A. fib with RVR: Patient was seen and examined.? She had an episode of diarrhea today. She complains of slight shortness of breath. Denies any fever or chills. She remains in normal sinus rhythm. Objective Data Objective Data Vital Signs: Vital Signs Temp Pulse Resp BP Pulse Ox O2 Del Method O2 Flow Rate 99.1 F 77 18 122/68 H 97 Nasal Cannula 2 08/06/22 09:46 08/06/22 09:46 08/06/22 09:46 08/06/22 09:46 08/06/22 09:46 08/06/22 09:46 08/06/22 09:46 Oxygen Flow Rate (L/min) 2 Oxygen Delivery Method Nasal Cannula Weight: 144.9 kg Body Mass Index (BMI) 53.1 Intake & Output: Intake and Output for Last 24 Hours 08/04/22 08/05/22 08/06/22 23:59 23:59 23:59 Intake Total 12.75 / 15.25 848.86 / 848.86 240 / 240 Balance 12.75 / 15.25 848.86 / 848.86 240 / 240 Lab / Micro Data Result Diagrams: 08/06/22 12:02 08/06/22 12:02 Micro: Microbiology 08/04/22 19:01 Nasal Secretion SARS-CoV-2 & FLU Antigen (Rapid) - Final Physical Exam Narrative Physical exam: General: Alert, Oriented x3, Cooperative, morbidly obese HEENT: Atraumatic Oral: Moist Mucosa Neck: Supple Lungs: Clear to auscultation Cardiovascular: HS I+II, regular, no murmurs Abdomen: Bowel Sounds Present, Soft, Non Tender Extremities: No edema Skin: No rashes, No breakdown Neurological: Grossly intact Psych/Mental Status: Appropriate Assessment & Plan Assessment/Plan (1) Non-STEMI (non-ST elevated myocardial infarction): (2) Atrial flutter with rapid ventricular response: (3) Hypercoagulability due to atrial fibrillation: PLAN: Plan 1. Atrial flutter with RVR, status post DC cardioversion (08/05/22) Remains in normal sinus rhythm Cardiology following, continue on sotalol, apixaban 2. Acute NSTEMI, likely type II secondary to #1 Cardiology following, continue treatment as #1 3. Acute on chronic heart failure with reduced EF, EF 50%, mild Likely exacerbated by #1, improved, repeat BMP appears 237.4 Continue on oral Lasix 40 mg twice a day 4. Hypertension/hyperlipidemia, continue on apixaban, lisinopril, sotalol 5. DVT prophylaxis - on apixaban Charges/Coding Visit Charges Inpatient E&M: 57066 Subs Hosp L2
[2022-08-06 13:01] LABS: Absolute Lymphocyte Count 1.64 X10^3/uL (0.83-4.51); Absolute Neutrophil Count 7.1 X10^3/uL (2.0-7.7); Basophil# 0.02 X10^3/uL; Basophil% 0.2 % (0-1); Eosinophil# 0.06 X10^3/uL; Eosinophils% 0.6 % (0-5); Hemoglobin 10.9 g/dL (12.0-15.0); Lymphocyte # 1.64 X10^3/ul (0.83-4.51); Lymphocyte % 16.7 % (19-41); Mean Corp Hgb Conc 32.1 g/dL (32-36); Mean Corpuscular Hgb 28.5 pg (27.0-32.0); Mean Platelet Vol. 11.3 fl (6.2-12.0); Monocyte# 0.93 X10^3/uL; Monocyte% 9.5 % (0-10); NRBC Flagged by Analyzer 0 % (0-5); Neutrophil # 7.14 X10^3/uL (2.7-7.7); Neutrophil % 72.5 % (47-70); Platelet Count 203 K/mm3 (150-450); RBC Distribution Width CV 14.6 % (11.6-14.6); RBC Distribution Width SD 46.8 fl (35.1-43.9); Red Blood Count 3.82 M/mm3 (4.2-5.4); White Blood Count 9.8 K/mm3 (4.4-11.0)
[2022-08-06 13:21] LABS: BNP,B-Type NATRIURETIC PEPTIDE 237.4 pg/mL (0-100)
[2022-08-06 13:23] LABS: ALB/GLOB Ratio 0.8 RATIO (0.9-2.4); AST(SGOT) 39 U/L (15-37); Alanine Aminotransfer ALT/SGPT 53 U/L (13-56); Albumin, Serum 3.3 g/dL (3.2-5.0); Alkaline Phosphatase 90 U/L (45-117); Anion Gap 2 (5-15); BUN 23 mg/dL (7-18); BUN/Creat Ratio 19.8 RATIO (10-20); Calcium,Total 9.1 mg/dL (8.5-10.1); Chloride 105 mmol/L (98-107); Creatinine, Serum 1.16 mg/dL (0.55-1.02); EST Glomerular Filtration Rate 49 mL/min (>60); Est Glom Filt Rate - Afr Amer 60 mL/min (>60); Estimated Creatinine Clearance 41.77 ml/min; Globulin 4.3 g/dL (2.2-4.2); Glucose 103 mg/dL (74-106); Potassium 4.3 mmol/L (3.5-5.1); Protein, Total 7.6 g/dL (6.4-8.2); Sodium Level 136 mmol/L (136-145)
[2022-08-06 14:00] VITALS: BP 135/95; PULSE 75; RESP 18; TEMP 37.2; O2SAT 95
[2022-08-06 21:01] VITALS: BP 118/66; PULSE 67; RESP 18; TEMP 37.9; O2SAT 96
[2022-08-06] MEDS: Pramipexole Di-HCl 0.5 MG Tablet 1.5 MG PO (21:05)
[2022-08-06] MEDS: Atorvastatin Calcium 40 MG Tablet PO (21:05)
[2022-08-06] MEDS: 0.9% Saline Lock 10 ML Syringe IV (21:06)
--- NOTE | 2022-08-06 23:05 | EKG12_ITS ---
Test Reason : POST MED Blood Pressure : / mmHG Vent. Rate : 067 BPM Atrial Rate : 067 BPM P-R Int : 200 ms QRS Dur : 088 ms QT Int : 416 ms P-R-T Axes : 058 028 081 degrees QTc Int : 439 ms Normal sinus rhythm Normal ECG When compared with ECG of 05-AUG-2022 20:08, MANUAL COMPARISON REQUIRED, DATA IS UNCONFIRMED Confirmed by RACHEL EVERETT, HA ([id number]), book or script editor JIMBO LORENZO ([id number]) on 08/09/2022 11:32:39 AM Referred By: KUN Confirmed By:HA RAMSO MD
--- NOTE | 2022-08-07 02:38 | CPS ---
Pt has her own cpap/bipap and is using it.
[2022-08-07 03:32] VITALS: BP 128/74; PULSE 60; RESP 18; TEMP 37.2; O2SAT 93
[2022-08-07 06:14] LABS: Absolute Lymphocyte Count 1.95 X10^3/uL (0.83-4.51); Absolute Neutrophil Count 4.6 X10^3/uL (2.0-7.7); Basophil# 0.04 X10^3/uL; Basophil% 0.5 % (0-1); Eosinophil# 0.06 X10^3/uL; Eosinophils% 0.8 % (0-5); Hematocrit 32.3 % (37-47); Lymphocyte # 1.95 X10^3/ul (0.83-4.51); Lymphocyte % 25.6 % (19-41); Mean Corpuscular Hgb 27.9 pg (27.0-32.0); Mean Corpuscular Volume 90.2 fL (81-99); Monocyte# 0.93 X10^3/uL; Monocyte% 12.2 % (0-10); NRBC Flagged by Analyzer 0.4 % (0-5); Neutrophil % 60.2 % (47-70); Platelet Count 174 K/mm3 (150-450); RBC Distribution Width CV 14.2 % (11.6-14.6); RBC Distribution Width SD 47.3 fl (35.1-43.9); Red Blood Count 3.58 M/mm3 (4.2-5.4); White Blood Count 7.6 K/mm3 (4.4-11.0)
[2022-08-07 07:00] LABS: ALB/GLOB Ratio 0.7 RATIO (0.9-2.4); AST(SGOT) 27 U/L (15-37); Alanine Aminotransfer ALT/SGPT 45 U/L (13-56); Albumin, Serum 2.8 g/dL (3.2-5.0); Alkaline Phosphatase 83 U/L (45-117); Anion Gap 8 (5-15); BUN 19 mg/dL (7-18); BUN/Creat Ratio 19.1 RATIO (10-20); Calcium,Total 8.8 mg/dL (8.5-10.1); Chloride 102 mmol/L (98-107); EST Glomerular Filtration Rate 59 mL/min (>60); Est Glom Filt Rate - Afr Amer 71 mL/min (>60); Estimated Creatinine Clearance 48.45 ml/min; Globulin 4.1 g/dL (2.2-4.2); Glucose 100 mg/dL (74-106); Potassium 3.8 mmol/L (3.5-5.1); Protein, Total 6.9 g/dL (6.4-8.2); Sodium Level 135 mmol/L (136-145)
[2022-08-07 08:23] VITALS: O2SAT 96
[2022-08-07 09:00] VITALS: PULSE 70
[2022-08-07 09:08] VITALS: BP 136/91; PULSE 68; RESP 18; TEMP 36.9; O2SAT 96
[2022-08-07] MEDS: Lisinopril 20 MG Tablet PO (09:11)
[2022-08-07] MEDS: APIXABAN 5 MG TABLET PO (09:11)
[2022-08-07] MEDS: Pantoprazole Sodium 20 MG Tablet PO (09:11)
[2022-08-07] MEDS: DULoxetine Hcl 30 MG Capsule PO (09:11)
[2022-08-07] MEDS: Calcium Carb/Vitamin D 1 TABLET Tablet PO (09:11)
[2022-08-07] MEDS: Multivitamins,Therapeutic Tablet 1 TABLET PO (09:11)
[2022-08-07] MEDS: Cholecalciferol (VIT D3) 25 MCG TABLET (1,000 UNITS) 50 MCG PO (09:11)
[2022-08-07] MEDS: Aspirin 81 MG TAB.CHEW PO (09:11)
[2022-08-07] MEDS: Sotalol Hydrochloride 80 MG Tablet PO ×2 (09:12→15:57)
[2022-08-07] MEDS: Furosemide 40 MG Tablet PO (09:12)
--- NOTE | 2022-08-07 09:36 | PN.CARD_ITS ---
Subjective Subjective Patient seen and evaluated. Appears to be doing well this morning. Objective Data Vital Signs: Vital Signs Temp Pulse Resp BP Pulse Ox O2 Del Method O2 Flow Rate 99.0 F 60 18 128/74 H 96 CPAP 2 08/07/22 03:32 08/07/22 03:32 08/07/22 03:32 08/07/22 03:32 08/07/22 08:23 08/07/22 03:32 08/06/22 21:01 Oxygen Flow Rate (L/min) 2 Oxygen Delivery Method CPAP Weight: 319 lb 7.197 oz Body Mass Index (BMI) 53.1 Intake & Output: Intake and Output for Last 24 Hours 08/05/22 08/06/22 08/07/22 23:59 23:59 23:59 Intake Total 848.86 / 848.86 240 / 480 240 / 240 Balance 848.86 / 848.86 240 / 480 240 / 240 Lab / Micro Data Result Diagrams: 08/07/22 05:22 08/07/22 05:22 Labs: Laboratory Results - last 24 hr 08/06/22 12:02: B-Natriuretic Peptide 237.4 H 08/06/22 12:02: WBC 9.8, RBC 3.82 L, Hgb 10.9 L, Hct 34.0 L, MCV 89.0, MCH 28.5, MCHC 32.1, RDW Std Deviation 46.8 H, RDW Coeff of Nnamdi 14.6, Plt Count 203, MPV 11.3, Immature Gran % (Auto) 0.500, Neut % (Auto) 72.5 H, Lymph % (Auto) 16.7 L, [place] % (Auto) 9.5, Eos % (Auto) 0.6, Baso % (Auto) 0.2, Absolute Neuts (auto) 7.1, Absolute Lymphs (auto) 1.64, Nucleated RBC % 0 08/06/22 12:02: Sodium 136, Potassium 4.3, Chloride 105, Carbon Dioxide 29.0, Anion Gap 2 L, BUN 23 H, Creatinine 1.16 H, Estim Creat Clear Calc 41.77, Est GFR (MDRD) Af Amer 60, Est GFR (MDRD) Non-Af 49 L, BUN/Creatinine Ratio 19.8, Glucose 103, Calcium 9.1, Total Bilirubin 0.60, AST 39 H, ALT 53, Alkaline Phosphatase 90, Total Protein 7.6, Albumin 3.3, Globulin 4.3 H, Albumin/Globulin Ratio 0.8 L 08/07/22 05:22: WBC 7.6, RBC 3.58 L, Hgb 10.0 L, Hct 32.3 L, MCV 90.2, MCH 27.9, MCHC 31.0 L, RDW Std Deviation 47.3 H, RDW Coeff of Nnamdi 14.2, Plt Count 174, MPV 11.0, Immature Gran % (Auto) 0.700, Neut % (Auto) 60.2, Lymph % (Auto) 25.6, [place] % (Auto) 12.2 H, Eos % (Auto) 0.8, Baso % (Auto) 0.5, Absolute Neuts (auto) 4.6, Absolute Lymphs (auto) 1.95, Nucleated RBC % 0.4 08/07/22 05:22: Sodium 135 L, Potassium 3.8, Chloride 102, Carbon Dioxide 25.0, Anion Gap 8, BUN 19 H, Creatinine 1.00, Estim Creat Clear Calc 48.45, Est GFR (MDRD) Af Amer 71, Est GFR (MDRD) Non-Af 59 L, BUN/Creatinine Ratio 19.1, Glucose 100, Calcium 8.8, Total Bilirubin 0.70, AST 27, ALT 45, Alkaline Phosphatase 83, Total Protein 6.9, Albumin 2.8 L, Globulin 4.1, Albumin/Globulin Ratio 0.7 L Cardiology Labs/Tests 08/06/22 12:02: B-Natriuretic Peptide 237.4 H 08/06/22 12:02: WBC 9.8, RBC 3.82 L, Hgb 10.9 L, Hct 34.0 L, MCV 89.0, MCH 28.5, MCHC 32.1, Plt Count 203, MPV 11.3, Immature Gran % (Auto) 0.500, Neut % (Auto) 72.5 H, Lymph % (Auto) 16.7 L, [place] % (Auto) 9.5, Eos % (Auto) 0.6, Baso % (Auto) 0.2, Absolute Neuts (auto) 7.1, Nucleated RBC % 0 08/06/22 12:02: Sodium 136, Potassium 4.3, Chloride 105, Carbon Dioxide 29.0, Anion Gap 2 L, BUN 23 H, Creatinine 1.16 H, Est GFR (MDRD) Af Amer 60, Est GFR (MDRD) Non-Af 49 L, BUN/Creatinine Ratio 19.8, Glucose 103, Calcium 9.1, Total B ilirubin 0.60 08/07/22 05:22: WBC 7.6, RBC 3.58 L, Hgb 10.0 L, Hct 32.3 L, MCV 90.2, MCH 27.9, MCHC 31.0 L, Plt Count 174, MPV 11.0, Immature Gran % (Auto) 0.700, Neut % (Auto) 60.2, Lymph % (Auto) 25.6, [place] % (Auto) 12.2 H, Eos % (Auto) 0.8, Baso % (Auto) 0.5, Absolute Neuts (auto) 4.6, Nucleated RBC % 0.4 08/07/22 05:22: Sodium 135 L, Potassium 3.8, Chloride 102, Carbon Dioxide 25.0, Anion Gap 8, BUN 19 H, Creatinine 1.00, Est GFR (MDRD) Af Amer 71, Est GFR (MDRD) Non-Af 59 L, BUN/Creatinine Ratio 19.1, Glucose 100, Calcium 8.8, Total Bilirubin 0.70 Rhythm: EKG: ECHO: Stress Test: Cardiac Cath: PCI: CT Surgery: Holter monitor: EPS: PPM: CXR: Chest CT Scan: Physical Exam Const alert, oriented x3 and no apparent distress General Appearance: cooperative HEENT hearing grossly normal bilaterally Head and Scalp: atraumatic Eyes EOMs intact bilaterally Neck General: normal visual inspection Chest inspection of chest normal and palpation of chest normal Resp normal respiratory effort Auscultation: clear to auscultation bilaterally Cardio S1 normal heart sound and S2 normal heart sound Jugular Venous Distention: JVD Rhythm: abnormal rhythm irregularly irregular GI normal to inspection, nondistended, normoactive bowel sounds Extremity normal capillary refill and no pedal edema Peripheral Pulses: Yes pulses 2+ throughout and femoral pulses present Skin no rashes or lesions noted Neuro oriented x3 and CN's II-XII intact bilaterally Psych Appearance: grossly normal and appropriate Assessment & Plan Assessment/Plan (1) Non-ST elevated myocardial infarction (non-STEMI): PLAN: She presents with elevated cardiac enzymes which I suspect is secondary to demand ischemia from the atrial fibrillation flutter with a rapid ventricular response rate. She underwent cardiac catheterization within the last year and a half which demonstrated nonobstructive coronary arteries. I would recommend continued evaluation of the above. (2) Atrial flutter with rapid ventricular response: PLAN: She does have evidence of atrial fibrillation flutter with a rapid ventricular response rate which is paroxysmal. * She had a DC cardioversion performed and is maintaining sinus rhythm. * She has been started on sotalol which she is tolerating thus far * No EKG abnormalities noted. (3) Essential (primary) hypertension: PLAN: She does have a history of hypertension her blood pressure appears to be under fair control and I would not recommend that we make any changes. Thank you for allowing me to participate in the care of your patient. Please don't hesitate to call if any issues arise.
--- NOTE | 2022-08-07 11:15 | EKG12_ITS ---
Test Reason : Blood Pressure : / mmHG Vent. Rate : 092 BPM Atrial Rate : 092 BPM P-R Int : 276 ms QRS Dur : 080 ms QT Int : 378 ms P-R-T Axes : 082 021 090 degrees QTc Int : 467 ms Sinus rhythm with marked sinus arrhythmia with 1st degree A-V block Nonspecific ST and T wave abnormality Abnormal ECG When compared with ECG of 04-AUG-2022 18:13, MANUAL COMPARISON REQUIRED, DATA IS UNCONFIRMED Confirmed by RACHEL EVERETT, AH ([id number]), material expeditor JIMBO LORENZO ([id number]) on 08/09/2022 11:34:26 AM Referred By: KUN Confirmed By:HA RAMOS MD
--- NOTE | 2022-08-07 11:36 | DCINST_ITS ---
Discharge Instructions Diet Discharge Diet: Low fat / Low cholesterol and 2000 mg Sodium Diet Activity Discharge Activity: Return to Normal Activity Follow Up Care Test Results: Test results from this visit will be discussed in further detail at your follow- up appointment, if applicable. Discharge Plan Admission Admit Date/Time: 08/04/22 19:26 Primary Reason for Your Visit: A. fib with RVR/CHF exacerbation Attending Provider: Bridget Gonzalez Primary Care Provider: Walter Mendez Consulting Providers: Francisco Javier Villagran ; Deondre Hollingsworth Instructions Additional Instructions / Restrictions: Take note of changes to your medications. Continue on a low salt, low fat diet Weigh yourself everyday and keep a log. Let your doctor know if you gain more than 5 pounds in a week. Follow-up with your primary care doctor within 1 week and cardiology as scheduled Discharge Orders/Prescriptions Prescriptions: New atorvastatin 40 mg Tablet 40 mg PO QHS 30 Days Qty: 30 0RF sotalol 80 mg Tablet 80 mg PO BID 30 Days Qty: 60 0RF Continued apixaban 5 mg tablet 5 mg PO BID Zyrtec 10 mg capsule 10 mg PO DAILY PRN (Reason: Allergy Symptoms) omeprazole 20 mg capsule,delayed release(DR/EC) 20 mg PO DAILY lisinopril 20 mg tablet 20 mg PO DAILY cholecalciferol (vitamin D3) [Vitamin D3] 1,000 UNIT tablet,chewable 2,000 unit PO DAILY calcium carbonate-vitamin D3 [Calcium 600 + D(3)] 600 mg(1,500mg) -400 unit Tablet 1 tab PO DAILY furosemide 40 mg tablet 40 mg PO BID duloxetine 30 mg capsule,delayed release(DR/EC) 30 mg PO DAILY Label Comments: TAKE 1-2 TABS BY MOUTH EVERY DAY FOR 30 DAYS ropinirole 1 mg tablet 3 mg PO QHS multivitamin Tablet 1 tab PO DAILY Discontinued diltiazem HCl 120 mg capsule,extended release 24 hr 120 mg PO .PRN PRN (Reason: tachycardia) Qty: 30 3RF carvedilol [Coreg] 25 mg tablet 12.5 mg PO BID Rx Instructions: must administer with a meal/food Referrals / Follow Up: Ovidio Lambert MD [Med Staff - Active Staff] - See Referral Note (as scheduled) Walter Mendez MD [Primary Care Provider] - In 1 Week Disposition Disposition (needs filled in before D/C Order can be placed): Home, Self Care
[2022-08-07 14:00] VITALS: BP 146/99; PULSE 70; RESP 18; TEMP 36.7; O2SAT 94
--- NOTE | 2022-08-07 16:59 | EKG12_ITS ---
Test Reason : MED REACTION Blood Pressure : / mmHG Vent. Rate : 068 BPM Atrial Rate : 068 BPM P-R Int : 198 ms QRS Dur : 084 ms QT Int : 432 ms P-R-T Axes : 056 012 079 degrees QTc Int : 459 ms Normal sinus rhythm Low voltage QRS Borderline ECG When compared with ECG of 05-AUG-2022 09:52, MANUAL COMPARISON REQUIRED, DATA IS UNCONFIRMED Confirmed by RACHEL EVERETT, HA ([id number]), editorial director JIMBO LORENZO ([id number]) on 08/09/2022 11:34:16 AM Referred By: KASSY Confirmed By:HA RAMOS MD
--- NOTE | 2022-08-07 17:27 | PCM.DC.SUM ---
Providers Date of Admission: 08/04/22 Date of Discharge: 08/07/22 Primary Care Physician: Dr. Walter Mendez MD Consultations 08/04/22 21:23 Consult: Cardiology Routine Consulting Provider: Francisco Javier Villagran Reason for Consult: nstemi EMERGENT Consult: No MD Notified: Yes Date Notified: 08/04/22 Time Notified: 19:37 Method of Notification: ED Physician Initiated Method of Consult:: In-Person Reason For Visit: NSTEMI Diagnosis Discharge Diagnosis (1) Non-ST elevated myocardial infarction (non-STEMI): Status: Acute Code(s): I21.4 - Non-ST elevation (NSTEMI) myocardial infarction (2) Atrial flutter with rapid ventricular response: Status: Acute Code(s): I48.92 - Unspecified atrial flutter (3) Essential (primary) hypertension: Status: Chronic Code(s): I10 - Essential (primary) hypertension Plan 1. Atrial flutter with RVR, status post DC cardioversion (08/05/22) 2. Acute NSTEMI, likely type II 3. Acute on chronic heart failure with reduced EF, EF 50% 4. Hypertension 5. Hyperlipidemia Medications at Discharge Home Medications cholecalciferol (vitamin D3) 25 mcg (1,000 unit) chewable tablet (Vitamin D3) 2,000 unit PO DAILY vitamin 12/05/18 multivitamin 1 tab PO DAILY vitamin 11/30/20 ropinirole 1 mg tablet 3 mg PO QHS restless legs 11/30/20 apixaban 5 mg tablet 5 mg PO BID blood thinner 12/02/20 calcium carbonate 600 mg-vitamin D3 10 mcg (400 unit) tablet (Calcium 600 + D(3)) 1 tab PO DAILY supplement 12/27/20 cetirizine 10 mg capsule (Zyrtec) 10 mg PO DAILY PRN Allergy Symptoms 09/27/21 omeprazole 20 mg capsule,delayed release 20 mg PO DAILY GERD 09/27/21 lisinopril 20 mg tablet 20 mg PO DAILY blood pressure 10/20/21 duloxetine 30 mg capsule,delayed release 30 mg PO DAILY fibromyalgia 08/04/22 furosemide 40 mg tablet 40 mg PO BID diuectic 08/04/22 atorvastatin 40 mg tablet 40 mg PO QHS 30 days #30 tabs 08/07/22 sotalol 80 mg tablet 80 mg PO BID 30 days #60 tabs 08/07/22 Hospital Course Operations None Procedures 2-D Echocardiogram and Cardioversion Summary of Care Provided Minutes Spent on Discharge: 35 Hospital Course: 67-year-old with past medical history of chronic diastolic CHF, paroxysmal atrial fibrillation, hypertension, hyperlipidemia, obstructive sleep apnea who comes in with complaints of palpitations and shortness of breath. Patient initially thought his sleep apnea machine was not working well. She checked her pulse ox and her heart rate was elevated around 120s. She presented to the emergency room was found to be hypoxic and also in a flutter with RVR. She was admitted to the telemetry floor and managed acute on chronic diastolic CHF as well as a flutter with RVR. Cardiology was consulted from the ED. Patient underwent cardioversion. She remained in normal sinus rhythm. She was continued on sotalol. She was evaluated for oxygen at discharge and did not require oxygen. She was discharged on sotalol and Eliquis. She will follow-up with cardiology as planned. Physical Exam Narrative Physical exam: General: Alert, Oriented x3, Cooperative, morbidly obese HEENT: Atraumatic Oral: Moist Mucosa Neck: Supple Lungs: Clear to auscultation Cardiovascular: HS I+II, regular, no murmurs Abdomen: Bowel Sounds Present, Soft, Non Tender Extremities: No edema Skin: No rashes, No breakdown Neurological: Grossly intact Psych/Mental Status: Appropriate Weight / BMI Weight Weight: 144.9 kg Body Mass Index (BMI) 53.1 ABG / Lab / Microbiology Data Result Diagrams: 08/07/22 05:22 08/07/22 05:22 Laboratory: Laboratory Results - last 24 hr 08/07/22 05:22: WBC 7.6, RBC 3.58 L, Hgb 10.0 L, Hct 32.3 L, MCV 90.2, MCH 27.9, MCHC 31.0 L, RDW Std Deviation 47.3 H, RDW Coeff of Nnamdi 14.2, Plt Count 174, MPV 11.0, Immature Gran % (Auto) 0.700, Neut % (Auto) 60.2, Lymph % (Auto) 25.6, [place] % (Auto) 12.2 H, Eos % (Auto) 0.8, Baso % (Auto) 0.5, Absolute Neuts (auto) 4.6, Absolute Lymphs (auto) 1.95, Nucleated RBC % 0.4 08/07/22 05:22: Sodium 135 L, Potassium 3.8, Chloride 102, Carbon Dioxide 25.0, Anion Gap 8, BUN 19 H, Creatinine 1.00, Estim Creat Clear Calc 48.45, Est GFR (MDRD) Af Amer 71, Est GFR (MDRD) Non-Af 59 L, BUN/Creatinine Ratio 19.1, Glucose 100, Calcium 8.8, Total Bilirubin 0.70, AST 27, ALT 45, Alkaline Phosphatase 83, Total Protein 6.9, Albumin 2.8 L, Globulin 4.1, Albumin/Globulin Ratio 0.7 L Microbiology: Microbiology 08/04/22 19:01 Nasal Secretion SARS-CoV-2 & FLU Antigen (Rapid) - Final D/C Instructions Discharge Diet: Low fat / Low cholesterol and 2000 mg Sodium Diet Meaningful Use Info Meaningful Use Diagnoses (Choose all that apply): CHF CHF BLU/ARB ordered at discharge?: Yes Documented LVEF (%): 50 Discharge Plan Admission Admit Date/Time: 08/04/22 19:26 Primary Reason for Your Visit: A. flutter with RVR/CHF exacerbation Attending Provider: Bridget Gonzalez Primary Care Provider: Walter Mendez Consulting Providers: Francisco Javier Villagran ; Deondre Hollingsworth Instructions Additional Instructions / Restrictions: Take note of changes to your medications. Continue on a low salt, low fat diet Weigh yourself everyday and keep a log. Let your doctor know if you gain more than 5 pounds in a week. Follow-up with your primary care doctor within 1 week and cardiology as scheduled Discharge Orders/Prescriptions Prescriptions: New atorvastatin 40 mg Tablet 40 mg PO QHS 30 Days Qty: 30 0RF sotalol 80 mg Tablet 80 mg PO BID 30 Days Qty: 60 0RF Continued apixaban 5 mg tablet 5 mg PO BID Zyrtec 10 mg capsule 10 mg PO DAILY PRN (Reason: Allergy Symptoms) omeprazole 20 mg capsule,delayed release(DR/EC) 20 mg PO DAILY lisinopril 20 mg tablet 20 mg PO DAILY cholecalciferol (vitamin D3) [Vitamin D3] 1,000 UNIT tablet,chewable 2,000 unit PO DAILY calcium carbonate-vitamin D3 [Calcium 600 + D(3)] 600 mg(1,500mg) -400 unit Tablet 1 tab PO DAILY furosemide 40 mg tablet 40 mg PO BID duloxetine 30 mg capsule,delayed release(DR/EC) 30 mg PO DAILY Label Comments: TAKE 1-2 TABS BY MOUTH EVERY DAY FOR 30 DAYS ropinirole 1 mg tablet 3 mg PO QHS multivitamin Tablet 1 tab PO DAILY Discontinued diltiazem HCl 120 mg capsule,extended release 24 hr 120 mg PO .PRN PRN (Reason: tachycardia) Qty: 30 3RF carvedilol [Coreg] 25 mg tablet 12.5 mg PO BID Rx Instructions: must administer with a meal/food Referrals / Follow Up: Ovidio Lambert MD [Med Staff - Active Staff] - See Referral Note (as scheduled) Walter Mendez MD [Primary Care Provider] - In 1 Week Disposition Disposition (needs filled in before D/C Order can be placed): Home, Self Care Charges/Coding Visit Charges Inpatient E&M: 29743 Disch Hosp >30min
--- NOTE | 2022-08-07 18:12 | NURSING ---
1505-cps in to do ekg and sent to dr. cope. of for pt to be dc'd and dr. rivas texted and working on dc
== END 2022-08-07 17:55 | disposition home or self-care (01) | DRG 281 ==
LOC: ED 18:09 → PCU 20:09
PROVIDERS: Internal Medicine Cardiovascular Disease; Admitting Provider Hospitalist; Emergency Provider Emergency Medicine; PCP Family Medicine; Visit Provider Internal Medicine
DX: I48.0 Paroxysmal atrial fibrillation (principal); I21.A1 Myocardial infarction type 2; D68.69 Other thrombophilia; Z68.43 Body mass index [BMI] 50.0-59.9, adult; I50.32 Chronic diastolic (congestive) heart failure; I48.92 Unspecified atrial flutter; I11.0 Hypertensive heart disease with heart failure; E66.01 Morbid (severe) obesity due to excess calories; E78.5 Hyperlipidemia, unspecified; G47.33 Obstructive sleep apnea (adult) (pediatric); Z79.01 Long term (current) use of anticoagulants; Z79.899 Other long term (current) drug therapy
CPT/HCPCS: 36415; 71045; 80048; 80053; 80061; 82784; 83615; 83735; 83880; 83883; 84165; 84443; 84484; 85025; 85610; 85652; 85730; 86334; 87428; 92960; 93005; 93306; 94762; 97110; 97162; 97166; 97530; 99285; J7040; Q9957; A4216; C8929

== ENCOUNTER → 2022-09-06 | Outpatient (CLI) | payer MEDICARE, OTHER, SELFPAY ==
--- NOTE | 2022-09-06 11:40 | RAD_ITS ---
STUDY: X-RAY BONE SURVEY COMPLETE REASON FOR EXAM: Female, 67 years old. BICLONAL GAMMOPATHY. TECHNIQUE: Frontal and lateral views of the skull, frontal and lateral cervical spine views, frontal and lateral thoracic spine views, frontal and lateral lumbar spine views, frontal chest, frontal abdomen, AP pelvis, frontal views of both the right and left humeri, frontal views of both forearms, frontal views of both femurs and frontal views of both lower extremities were obtained on 23 images. COMPARISON: Chest x-ray dated April 23, 2020 FINDINGS: CHEST: The lungs are clear and expanded. There is no demonstrated pleural abnormality. Cardiomegaly. Normal mediastinum and laura. Prominent central pulmonary arteries. Normal visualized aortic arch and descending thoracic aorta. Normal visualized thoracic spine. Normal visualized ribs, clavicles, and shoulders. There is no demonstrated abnormality of the visualized soft tissue structures of the upper abdomen. PELVIS: Mild osteopenia. No focal lytic lesions.. CERVICAL SPINE: Osteopenia. Diffuse mild cervical spondylosis most marked at C4-5, C5-6 and C6-7. No focal lytic lesions. . THORACIC SPINE: Diffuse osteopenia. Mild anterior wedging of the T12 vertebral body. Diffuse moderate thoracic spondylosis. No focal lytic lesions. LUMBAR SPINE: Osteopenia. Diffuse mild lumbosacral spondylosis. Vascular calcification. No focal lytic lesions. Osteopenia with no focal lytic lesions. LEFT FEMUR: Osteopenia with no focal lytic lesions. RIGHT HUMERUS : Osteopenia with no focal lytic lesions. LEFT HUMERUS: Osteopenia with no focal lytic lesions. SKULL: Osteopenia with no focal lytic lesions . RAD/Bone Survey Comp(Axial&Append) IMPRESSION: Generalized osteopenia with cervical, thoracic and lumbosacral spondylosis. No focal lytic lesions. Electronically Signed: Teo Valentino, at 12:55 EST ,
== END | disposition home or self-care (01) ==
LOC: RAD 11:37
PROVIDERS: PCP Family Medicine; Visit Provider Internal Medicine Medical Oncology
DX: D47.2 Monoclonal gammopathy (principal)
CPT/HCPCS: 77075

== ENCOUNTER → 2022-09-13 | Outpatient (CLI) | payer MEDICARE, OTHER, SELFPAY ==
[2022-09-13 10:01] LABS: Absolute Lymphocyte Count 1.08 X10^3/uL (0.83-4.51); Absolute Neutrophil Count 2.7 X10^3/uL (2.0-7.7); Basophil# 0.02 X10^3/uL; Basophil% 0.4 % (0-1); Eosinophil# 0.05 X10^3/uL; Hematocrit 38.1 % (37-47); Lymphocyte # 1.08 X10^3/ul (0.83-4.51); Lymphocyte % 21.8 % (19-41); Mean Corp Hgb Conc 31.5 g/dL (32-36); Mean Platelet Vol. 10.8 fl (6.2-12.0); Monocyte# 1.06 X10^3/uL; Monocyte% 21.4 % (0-10); NRBC Flagged by Analyzer 0 % (0-5); Neutrophil # 2.72 X10^3/uL (2.7-7.7); Platelet Count 218 K/mm3 (150-450); RBC Distribution Width CV 14.1 % (11.6-14.6); RBC Distribution Width SD 45.8 fl (35.1-43.9); Red Blood Count 4.28 M/mm3 (4.2-5.4)
[2022-09-13 10:31] LABS: Vitamin D,25 Hydroxy 48.6 ng/mL
[2022-09-13 10:35] LABS: ALB/GLOB Ratio 0.8 RATIO (0.9-2.4); AST(SGOT) 43 U/L (15-37); Alanine Aminotransfer ALT/SGPT 30 U/L (13-56); Albumin, Serum 3.3 g/dL (3.2-5.0); Alkaline Phosphatase 94 U/L (45-117); Anion Gap 8 (5-15); BUN 22 mg/dL (7-18); BUN/Creat Ratio 19.1 RATIO (10-20); Chloride 101 mmol/L (98-107); Cholesterol 109 mg/dL (200); Creatinine, Serum 1.15 mg/dL (0.55-1.02); EST Glomerular Filtration Rate 50 mL/min (>60); Est Glom Filt Rate - Afr Amer 60 mL/min (>60); Ferritin 97 ng/mL (8-252); Globulin 4.4 g/dL (2.2-4.2); Glucose 111 mg/dL (74-106); High Density Lipoprotein 47 mg/dL; Iron 34 ug/dL (50-170); Iron Binding Capacity,Total 407 ug/dL (250-450); Potassium 3.9 mmol/L (3.5-5.1); Protein, Total 7.7 g/dL (6.4-8.2); Sodium Level 136 mmol/L (136-145); Thyroid Stim Hormone (TSH) 1.45 uIU/mL (0.358-3.74); Triglycerides 100 mg/dL; Very Low Density Lipoprotein 20 mg/dL (5-40)
[2022-09-14 11:11] LABS: Hemoglobin A1c 5.4 % (3.8-5.6)
== END | disposition home or self-care (01) ==
LOC: MFPLAB 09:14
PROVIDERS: PCP Family Medicine; Referring Provider Family Medicine; Visit Provider Family Medicine
DX: R73.09 Other abnormal glucose (principal); I48.0 Paroxysmal atrial fibrillation; E55.9 Vitamin D deficiency, unspecified; E78.5 Hyperlipidemia, unspecified; D50.9 Iron deficiency anemia, unspecified
CPT/HCPCS: 36415; 80053; 80061; 82306; 82728; 83036; 83540; 83550; 83735; 84443; 85025

== ENCOUNTER → 2022-10-18 | Outpatient (CLI) | payer MEDICARE, OTHER, SELFPAY ==
--- NOTE | 2022-10-18 09:15 | CR.ITP_ITS ---
Diagnosis - General Information Admitting Diagnosis: NON-ST elevatred myocardial infarction Secondary Diagnosis: Morbid obesity, Hyp[ertension, Mixed Hyperlipidemia, Atrial Fibrillation Personal Learning Style:: Audio/Visual, Written Barriers to Learning: Vision Impairment Stage of change r/t lifestyle modifications:: Action Gave educational material for:: Treating Heart Disease, Emotions & Heart Disease, Stress Management & Relaxation, Sleep Disorders & Heart Disease, How The Heart Works, What it means to have Heart Disease, How Coronary Artery Disease is Diagnosed, Heart Procedures, What Heart Medications Do, Risk Factors & Modifications, Living an Active Life, Nutrition - Education/Goals Individual Counseling: Initial Assessment: Abnormal Cholesterol Levels, High Blood Pressure, Overweight/Obesity Cardiac Rehabilitation Goals: 1. Maintain the individual as the primary focus of care. 2. To improve the patient's quality of life. 3. Identification of cardiac risk factors and provide cardiac risk factor management. 4. Enhance the psychosocial status of the patient. 5. Reconditioning enough to allow the patient to resume customary activities. 6. Control symptoms of cardiac disease Personal Goals: Initial Assessment: Improve energy level, Get back to work, or to resume activities faster, Improve muscle strength and endurance, Improve diet and eating habits (eat healthier), Other goal: - Be able to return to water aerobics Scale for measuring improvement of personal goals: Enter appropriate number in Comments. 2 = Unchanged. 3 = Slightly Better. 4 = Moderate Improvement. 5 = Met my Goal - Diagnosis & Disease Process Outcomes/Goals: Pt IDs own risk factors & lifestyle modifications by Session 10, Verbalizes symptoms of angina & response by session 3., Pt independently manages Plan/Interventions: Assist Pt to ID & engage in lifestyle modification to reduce CVD risk, Instruct on individual risk factors, Review symptoms of angina & emergency actions, Review secondary diagnosis & identify educational needs. - Safety Referral to Physical Therapy: No Referral to [facility] Case Management: No Fall Risk Assessed:: Yes Assistive Devices:: None Exercise - Initial Assessment - Visit Date of Eval: 10/18/22 Session #:: 0 - Pre-cardiac rehab evaluation Mets: Pre-: >5 METS for 30 minutes by discharge - Physician Prescribed Exercise Modalities: Treadmill, NuStep, Lateral [place] Frequency: 3x/week for 12 weeks [36 sessions] Intensity: 60-80% of age predicted maximum heart rate reserve Duration: 30 - 45 minutes Current METSs:: 3.0 Target Heart Rate:: 91-114 Resting Blood Pressure: 128/74 EKG Type: NSR (history of atrail fibrillation) - Outcomes & Goals Goals:: Verbalizes understanding of THR, RPE & goal METS by session 6, Documents in home exercise log/reports 30 min aerobic 5 day/wk by DC, Demonstrates accurate pulse taking by DC - Intervention & Plan Exercise Program Goals: Instruct on personal THR & RPE, Instruct on MET level & personal MET goal, Show patient to take own pulse /validate performance until accurate, Instruct on home exercise - Physical Activity Home Exercise Physical Activity - Home Exercise: Safe Exercise, Warm-up, Self-monitoring, Cool-Down, Home Exercise > 30 min Daily, Sitting Time <3 hours/daily - Outcomes & Goals Outcomes/Goals: Demonstrates correct Warm-up/exercise Cool-Down (S3) if = 2.5 METs, Verbalizes symptoms of exercise intolerance by Session 3 (S3), Demonstrate safe equipment use (S3) & follows exercise prescrition (6) - Intervention & Plan Plan/Intervention: Instruct warm-up & cool-down if exercising at > 2 METs, Instruct on symptoms of exercise intolerance & actions to take, Instruct & monitor on saf, Assess intial functional capacity & safety risk Nutrition - Initial Assessment - Program Goals Nutrition Program Goals: LDL <100 optimal. 100 - 129 Near optimal. 130 - 159 Borderline High. 160 - 189 High. Total Cholesterol <200 desirable. 200 - 239 Borderline High. >/= 240 High. HDL < 40 Low >/=60 High. Triglycerides <150 desirable. <199 optimal. VlDL 5 - 40. HgbA1C <7%. BMI <25 Patient has diagnosis of Hyperlipidemia (ICD E78)?: Yes - Visit Date of Assessment:: 10/18/22 Session #:: 0 - Pre-cardiac rehab evaluation - Cholesterol/Lipids (Other Core Measures) Triglycerides (mg/dL): 100 Total Cholesterol (mg/dL): 109 LDL Cholesterol (mg/dL): 42 HDL Cholesterol (mg/dL): 47 Determine presence & major risk factors that modify LDL goal: Hypertension or hypertensive medication, Family history of premature CHD in Male < 55 years: female <65 yearsFa, Age men > 45 years; women >/= 55 years Outcomes/Goals: Pt IDs own risk factors & lifestyle modifications by Session 10, Verbalizes symptoms of angina & response by session 3., Pt independently manages Intervention/Plan: Instruct on personal lipid levels & lipid goals/NCEP guidelines, Instruct on cholesterol Referral to dietitian:: Yes - Weight Mgt (Other Care) Not Applicable: Yes Height: 5 ft 5 in Weight:: 319 lb BMI: 53.1 Diagnosis Overweight/Obesity BMI> 30% ICD-10 E66: Yes Diagnosis High BMI/Morbid Obesity BMI> 35% ICD-10 Z68: Yes Outcomes/Goals: Pt sets, maintains & shows weight loss goal & trend during rehab Intervention/Plan: Instruct on ideal BMI & set weight loss goal w/patient, Assist pt to ID & incorporate diet changes for weight loss by S9, Refer to Structured Weight Loss program as appropriate, Encourage goal of using 250- 300dcal per session for weight loss - Healthy Eating Habits Will attend diet classes:: Yes Outcomes/Goals:: Consume diet rich in vegs,fruits,whole grain/high fiber,fish,lean meat, Limit sat/trans fats,cholesterol & added salts & sugars Intervention/Plan:: Assess current eating habits - Education Gave educational materials for:: Healthy eating Nutrition - 30-Day Assessment Nutrition - 60-Day Assessment Nutrition - 90-Day Assessment Nutrition - Final Assessment Core - Initial Assessment - Visit Date of Eval: 10/18/22 Session #:: 0 - Pre-cardiac rehab evaluation - Medication Compliance Preventative Medication(s):: Aspirin, Statin/lipid, Eliquis H/O mental health issues: depression, anxiety, or addiction?: No Doesn?t believe in the benefits of treatment?: No Believes medications are unnecessary or harmful?: No Has a concern about medication side effects?: No Expresses concern over the cost of medications?: No Outcomes/Goals: Verbalizes medications,desired effect & common side effects @ DC, Pt self-reports following medication regimen, Keeps card in wallet w/medications listed by DC Interventions/plans: Instruct on medication effects & side effects, Review medication list w/patient every two weeks, Instruct importance of taking meds as ordered & assist problem solving - Tobacco Use Tobacco Use: Non-smoker - Hypertension Hypertension Diagnosis:: Hypertension ICD-10 I10 Resting Blood Pressure:: 128/74 [employer] [employer] Hypertension Guidelines: [place] [employer] Hypertension Guidelines. Normal BP Less than 120/80. Elevated BP 120/80. Hypertension Stage 1: BP 130-139/80-89. Hypertesnion Stage 2: BP 140 or higher/90 or higher. Hypertension Crisis: BP higher than 180/120 Outcomes/Goals: Able to verbalize/achieve optimal blood pressure <130/80, Incorporates diet changes & exercise for blood pressure control by DC Interventions/plan: Instruct on optimal blood pressure, hypertension & medications, Instruct on effects of sodium, alcohol, stress, exercise &hypertension, Other additional plan/interventions - Tobacco Cessation Referral Smoking Cessation Referral:: No Individual Education/Counseling:: No Education Schedule Given:: Yes Core - 30-Day Assessment Core - 60-Day Assessment Core - 90 Day Assessment Core - Final Assessment Psychosocial - Initial Assess - VIsit Date of Eval: 10/18/22 Session #:: 0 - Pre-cardiac rehab evaluation Not Applicable: Yes History of previous Mental disease:: No - Psychosocial Test Tool Used:: [employer] Ed QOL Cardiac, PHQ-9 Questionnaire phq-9 Severity: Severity. 1-4 Minimal Depression. 5-9 Mild Depression. 10-14 Moderate Depression. 15-19 Moderately Sever Depression. 20-27 Severe Depre ssion. Rule: - Outcomes/Goals: See list Psychosocial Outcomes/Goals:: ID's personal stressors & 2 strategies to manage stress by discharge - Intervention/Plan: See List Interventions/Plan:: Assess stressors,coping strategies & signs of derpression on admission, Instruct/assist pt to develop coping & personal stress Mgt strategies, Instruct patient to recognize signs & symptoms of depression, Instruct patient to recog Psychosocial - 30-Day Assess Psychosocial - 60-Day Assess Psychosocial - 90-Day Assess Psychosocial - Final Assessmen Patient Health Questionnaire Initial Assessment 1. Little interest or pleasure in doing things: Several days 2. Feeling down, depressed, or hopeless: Several days 3. Trouble falling or staying asleep, or sleeping too much: More than half the days 4. Feeling tired or having little energy: Nearly every day 5. Poor appetite or overeating: More than half the days 6. Feeling bad about yourself -- or that you are a failure or have let yourself or your family down: Not at all 7. Trouble concentrating on things, such as reading the newspaper or watching television: Not at all 8. Moving or speaking so slowly that other people could have noticed. Or the op posite - being so fidgety or restless that you have been moving around a lot more than usual: Not at all 9. Thoughts that you would be better off , or of hurting yourself in some way: Not at all How difficult have these problems made it for you to do your work, take care of things at home, or get along with other people?: Very difficult Total Score: 9 [id number] SV Test - Statements CAD is a disease of the arteries in the heart: False Examples of risk factors for heart disease: True Angina is chest pain or discomfort: True The benefits of resistance training include: True Eating more meat and dairy products: False Anti-platelet medications such as aspirin are important: True The only effective way to manage stress: False An exercise warm-up slowly increases heart rate: True Prepared, processed foods usually have high sodium: True Depression is common after a heart attack: True The statin medications lower cholesterol: True To control blood pressure, lower the amount of sodium: True If someone gets chest discomfort during walking: False Transfats are partially hydrogenated vegetable oils: True Sleep apnea that is not treated increases the risk: False To control cholesterol, one should become a vegetarian: False Someone knows if he/she is exercising at the right level: True Diabetes cannot be prevented with exercise & health eating: False Stress is a large risk for heart attack: True A diet that can help lower blood pressure is rich in: True - Total Score Total Correct Responses: 20 Self-Efficacy Initial Assessment We would like to know how confident you are in doing certain activities. Please select your confidence level for:: Select your confidence level for the following using the scale 1-10 where 1 is not at all confident and 10 is totally confident. Your score is the average of all 6 responses. Fatigue: How confident are you that you can keep the fatigue caused by your disease from interfering with the things you want to do? Select Number: 3 Physical Discomfort or Pain: How confident are you that you can keep the physical discomfort or pain of your disease from interfering with the things you want to do? Select Number: 3 Emotional Distress: How confident are you that you can keep the emotional distress caused by your disease from interfering with the things you want to do? Select Number: 3 Other Symptoms or Health Problems: How confident are you that you can keep other symptoms or health problems from interfering with the things you want to do? Select Number: 3 Different Tasks and Activities: How confident are you that you can do the different tasks and activities needed to manage your health condition so as to reduce your need to see a doctor? Select Number: 3 Medication: How confident are you that you can do things other than just taking medication to reduce how much your illness affects your everyday life? Select Number: 3 Total Score:: 3 Nutrition Survey - Nutrition Survey Initial Have you lost >10 lbs over the past 2 months without trying?: No Are you following a special diet at home for diabetes, low fat, or low salt?: Yes Are you interested in meeting with a dietitian for help understanding your diet?: Yes Do you eat less than 3 meals a day?: No Do you eat fatty meats (medina, sausage, ribs, etc), fried foods, desserts, large amounts of salad dressings, margarine, butter, or cheese most days?: No Do you have food allergies? [Enter types in comment field]: No Do you eat in restaurants more than 3 times a week?: No Do you season food with salt, seasoning salt, or garlic salt?: No Do you used canned, boxed, frozen meals, or soups, seasoning packets?: No Total Score:: 2
--- NOTE | 2022-10-18 09:17 | CR.HP_ITS ---
CR - History & Physical - General Arrival date:: 10/18/22 Arrival time:: 09:17 Date of Referral:: 10/18/22 Date of CR Evaluation:: 10/18/22 Referring Physician: Fausto Primary Diagnosis: Non-STEMI Myocardial infarction - History of Present Cardiac Event Onset Date: Enter Onset Date of cardiac illnesses in Comment field below Acute Myocardial Infarction within 12 months:: Yes - 09/15/2022 non stemi [place] Type of Symptoms:: Had been in atrail fib for weeks, increased carvedilol, one night became cold, short of breath, sweaty profusely came to ER with elevated troponins. - Sleep Disorder Evaluation Hx of Sleep Apnea: Yes Do you snore loudly (louder than talking or can be heard through closed doors)?: Yes - Yes, diagonsed with [facility] and wears Bi PAP Do you often feel tired/ fatigued/ sleepy during daytime?: Yes Has anyone observed you stop breathing during sleep?: Yes History of Hypertension (for STOP score): Yes - Rosienet has been diagnosed wtih [facility] and wears a BiPap at night STOP Results: Positive - Medications Home Medications: Ambulatory Orders Medication Instructions Recorded cholecalciferol (vitamin D3) 25 2,000 unit PO DAILY vitamin 12/05/18 mcg (1,000 unit) chewable tablet (Vitamin D3) multivitamin 1 tab PO DAILY vitamin 11/30/20 ropinirole 1 mg tablet 3 mg PO QHS restless legs 11/30/20 apixaban 5 mg tablet 5 mg PO BID blood thinner 12/02/20 calcium carbonate 600 mg-vitamin 1 tab PO DAILY supplement 12/27/20 D3 10 mcg (400 unit) tablet (Calcium 600 + D(3)) cetirizine 10 mg capsule (Zyrtec) 10 mg PO DAILY PRN Allergy Symptoms 09/27/21 omeprazole 20 mg capsule,delayed 20 mg PO DAILY GERD 09/27/21 release lisinopril 20 mg tablet 20 mg PO DAILY blood pressure 10/20/21 duloxetine 30 mg capsule,delayed 30 mg PO DAILY fibromyalgia 08/04/22 release atorvastatin 40 mg tablet 40 mg PO QHS #90 tabs 09/07/22 sotalol 80 mg tablet 80 mg PO BID 30 days #180 tabs 09/07/22 furosemide 40 mg tablet 40 mg PO BID diuectic #180 tabs 09/29/22 - Allergies Allergies/Adverse Reactions: Allergies almond Allergy (Verified 10/17/22 11:09) Rash Penicillins Allergy (Verified 10/17/22 11:09) Rash shellfish derived Allergy (Verified 10/17/22 11:09) angiodema sweet almond Allergy (Verified 10/17/22 11:09) angiodema metoprolol Adverse Reaction (Verified 10/17/22 11:09) itching, fatigue, sob, leg edema Advanced Directives - Advanced Directives Power of Household Assistant: Yes Living Will: Yes Advance Directives Information Provided: No Advance Directives on File: Yes DNR Order?:: No - MOLST See MOLST form: No Past Medical History - Covid-19 Screening Fever: No Unexplained muscle aches: Yes - ache all the time form arthritis and fibromyalgia Current respiratory symptoms: No Upper respiratory infections symptoms: No Gastro-intestinal symptoms: No [id number] symptoms: No Has tested positive for COVID-19 in last 30 days: No Date of testin10/18/22 - not vaccinated Had contact w/person w/symptoms or Covid-19 (+) last 14 days: Yes Has High Risk Exposures ID'd by Health dept/Inf Control team: No 65 years or older:: Yes Lives in Assisted Living facility:: No Has a chronic lung disease or moderate to severe asthma:: No Has a serious heart condition:: No Immunocompromised:: No Severely obese (Body Mass Index of 40 or higher):: Yes Diabetic:: No Has chronic kidney disease undergoing dialysis:: No Has liver disease:: No - Past Medical Illness Medical History: Past Medical History (Last Updated 10/17/22 @ 12:[address] Ruslan Lao MD) Atrial fibrillation with rapid ventricular response I48.91 Carotid artery stenosis I65.29 Essential (primary) hypertension I10 GERD (gastroesophageal reflux disease) Onset Date: 12/28/20 K21.9 Hay fever J30.1 Hyperlipidemia E78.5 Knee pain M25.569 Obesity E66.9 Obstructive sleep apnea G47.33 Ovarian cyst N83.209 Paroxysmal atrial fibrillation Onset Date: 10/2019 I48.0 - Past Surgical History Surgical History: Past Surgical History (Last Reviewed 10/17/22 @ 11:10 by Treasure Lopez) History of appendectomy Z90.49 History of left heart catheterization Onset Date: 12/28/20 Z98.890 History of tonsillectomy and adenoidectomy Z98.890 - Family History Summary Family History: Family History (Last Reviewed 10/17/22 @ 11:10 by Treasure Lopez) Mother Thyroid disorder Social History - Smoking History Smoking Status: Never smoker - Alcohol Use Alcohol Usage: No - Substance Abuse Hx Substance Use: No - Occupation Occupation (List type of work in comments):: Retired - Hobbies, Recreation, Social Activities Hobbies: Reading, Exercise - water exercise at [employer], Other - babysitting grandchildren Recreational Activities: I am able to engage in a few activities Social Environment - Status Marital Status: - Current Living Arrangements Living Environment:: Spouse - 2 - Children How many children do you have?: 2 Do any of your children live nearby?: Yes - within an hour - Safety Do you feel safe in your surroundings?: Yes - Assistance Do you need any assistance at home?: no Review of Systems - Review of Systems Hints: Right click = Denies (Slash). Left click = Reports ([place]) Review of Present Symptoms: Reports: Shortness of Breath with Exertion, Fatigue, Heart Arrhythmia/Irregularities - Palpitations and elevated heart rate > 100 but returns to normal, history of Atrail Fibrillation and has had cardioversion by Dr. Lambert, Appetite - Normal, Appetite - Special Diet - Low salt and Why WEight for a while and calorie counting, Sleep - Normal - difficulty sleeping (getting comfortable due to the knee pain). Denies: Shortness of Breath at Rest, Angina, Dizziness/Lightheadedness, Sexual Changes - Pain Is Patient Pain Free?: No Pain Location: lower extremity Pain Level: 10/10 - BIlateral knee pain more prevelant pain in the right knee. Is to have knee replacement Risk Factor Assessment - Chief Complaint Chief Complaint: This is 67 yr female patient of Dr. Lambert who presents to cardiac rehab today follwoing recent [place] follwoing atrail fibrillation. - Vital Signs Temperature: 99 F Respiratory Rate: 18 Pulse Ox: 99 Blood Pressure: 128/74 - Pulse Pulse Rate: 68 Pulse Rhythm: Regular - Hypertension How long have you been treated?: 8 years On medication(s)?: Yes Blood Pressure Sitting - Left Arm: 128/74 - Blood Cholesterol/Lipids Total Cholesterol (mg/dL) Goal = less than 200 mg/dL: 100 HDL Cholesterol (mg/dL) Goal = less than 40 mg/dL: 47 LDL Cholesterol (mg/dL) Goal = less than 70 mg/dL: 42 Triglycerides (mg/dL) Goal = less than 150 mg/dL: 100 - Obesity Height: 5 ft 5 in Weight:: 333 lb Weight in Pounds: 333.0 lbs Body Mass Index (BMI): 55.4 Nutritional Referral for Obesity: Yes - Physical Inactivity Physical Inactivity: Reg Exercise 30 min/day, Physically demanding job, Recreational activity - Risk Stratification Risk Guidelines: Lowest Risk: Risk Factor for Smoking, Risk Factor for Dyslipidemia, Risk Factor for Diabetes, Risk Factor for Hypertension, Risk Factor for Sedentary Lifestyle, Risk Factor for Depression, Highest Risk: Risk Factor for Obesity - Family History Family History: Family History (Last Reviewed 10/17/22 @ 11:10 by Treasure Lopez) Mother Thyroid disorder Motivation - Motivation to Participate On a scale of 1 to 10, how prepared are you to commit to attending program?: 7 - hesitant due to the knees What do you see as barriers to successfully being able to complete the program?: Bilateral knee problems What do you see as the benefits of succesfully completing the program? In other words, what do you hope to get out of participating in the program?: increase stamina, energy, decrease shortnessof breaht, increase activities. Are there issues you are dealing with that will interfere with completing the program?: Knee pain. Do you have a spouse or signficant other, family or friends who will help support you to complete the program?: Yes
[2022-10-18 09:49] VITALS: BP 128/74; PULSE 68; RESP 18; TEMP 37.2; O2SAT 99; BMI 55.4
[2022-10-18 10:25] VITALS: BP 128/74; BMI 53.1
== END | disposition home or self-care (01) ==
LOC: CR 09:08
PROVIDERS: PCP Family Medicine; Visit Provider Internal Medicine Cardiovascular Disease
DX: I10 Essential (primary) hypertension (principal); Z68.43 Body mass index [BMI] 50.0-59.9, adult; E78.5 Hyperlipidemia, unspecified

== ENCOUNTER 2022-10-24 09:30 | Outpatient (RCR) | payer MEDICARE, OTHER, SELFPAY ==
[2022-10-18 10:25] VITALS: BMI 53.1
== END 2022-11-13 23:59 ==
LOC: CR 09:30
PROVIDERS: PCP Family Medicine; Visit Provider Internal Medicine Cardiovascular Disease
DX: I25.2 Old myocardial infarction (principal); I48.19 Other persistent atrial fibrillation; I48.92 Unspecified atrial flutter; I10 Essential (primary) hypertension; E78.5 Hyperlipidemia, unspecified
CPT/HCPCS: 93798

== ENCOUNTER → 2022-10-25 | Outpatient (CLI) | payer MEDICARE, OTHER, SELFPAY ==
[2022-10-18 10:25] VITALS: BMI 53.1
--- NOTE | 2022-10-25 08:47 | VDLE_ITS ---
Reason For Study: Swelling RIGHT LEFT GSV is normal. GSV is normal. CFV is compressible, spontaneous, phasic, CFV is compressible, spontaneous, phasic, competent and demonstrates normal competent, and demonstrates normal augmentation. augmentation. FV is compressible, spontaneous, phasic, FV is compressible, spontaneous, phasic, competent and demonstrates normal competent and demonstrates normal augmentation. augmentation. POP V is compressible, spontaneous, phasic, POP V is compressible, spontaneous, phasic, competent and demonstrates normal competent and demonstrates normal augmentation. augmentation. T/P Trunk is compressible. T/P Trunk is compressible. PTV is compressible. PTV is compressible. RT PerV is compressible. LT PerV is compressible. Procedure This is a venous duplex using B-mode, color flow and spectral Doppler. Exam performed in department. A preliminary report was called and/or faxed to Dr. Lao. VL/Venous Duplex US - Satinder Extrem Interpretation Summary Deep veins of the bilateral lower extremities are patent and compressible segme ntally. There is no evidence of bilateral lower extremity deep vein thrombosis. The bilateral great saphenous veins appear patent and compressible segmentally Ordering Physician: Ruslan Lao Referring Physician: Walter Mendez Performed By: Paulette Long RVT
== END | disposition home or self-care (01) ==
LOC: CVS 08:46
PROVIDERS: PCP Family Medicine; Referring Provider Internal Medicine; Visit Provider Internal Medicine
DX: I21.4 Non-ST elevation (NSTEMI) myocardial infarction (principal); I48.0 Paroxysmal atrial fibrillation; G47.33 Obstructive sleep apnea (adult) (pediatric); M79.89 Other specified soft tissue disorders
CPT/HCPCS: 93970

== ENCOUNTER → 2022-11-23 | Outpatient (CLI) | payer MEDICARE, OTHER, SELFPAY ==
[2022-10-18 10:25] VITALS: BMI 53.1
--- NOTE | 2022-11-23 07:51 | BI_ITS ---
MAMMOGRAPHY - BILATERAL SCREENING REASON FOR EXAM: Female, 67 years old. Routine annual screening examination. PERTINENT HISTORY: Grandmother with breast cancer. TECHNIQUE: Digital bilateral breast bharath (3D mammographic acquisition) in the CC and MLO projections. 2-D mediolateral oblique (MLO) and craniocaudad (CC) views of both breasts were obtained. CAD: Full Field Digital Mammography with Computer Added Detection was performed. COMPARISON: Comparison is made with prior examination dated December 22, 2020 and December 03, 2011. FINDINGS: Breast Composition: There are scattered areas of fibroglandular density. There are no dominant masses or suspicious calcifications. No other significant abnormalities are identified. There has been no significant change since the prior study. BI/SCRN MAMM (CAD)W/BHARATH BILAT IMPRESSION: Stable bilateral screening mammogram. Yearly follow-up mammogram recommended. (A) ASSESSMENT CATEGORY: BIRADS Category 1: Negative. A letter regarding these results will be sent to the patient by the facility within 30 days. Approximately 10% of breast cancers are not detected by mammography. A normal mammogram should not delay biopsy of a clinically suspicious abnormality. [id number] Electronically Signed: Alfie Barrera MD at 9:18 EDT ,
== END | disposition home or self-care (01) ==
LOC: OPBI 07:49
PROVIDERS: PCP Family Medicine; Referring Provider Obstetrics & Gynecology; Visit Provider Obstetrics & Gynecology
DX: Z12.31 Encounter for screening mammogram for malignant neoplasm of breast (principal)
CPT/HCPCS: 77063; 77067

== ENCOUNTER 2022-12-02 09:30 | Outpatient (RCR) | payer MEDICARE, OTHER, SELFPAY ==
[2022-10-18 10:25] VITALS: BMI 53.1
--- NOTE | 2022-11-03 09:59 | HP.PTEVAL_ITS ---
Patient's Visit Information ELEN ARMAS is a 67 year old F referred to Physical Therapy by KEVON Rios with a diagnosis of NON ST ELEVATED MYOCARDIAL INFARCTION AND KNEE PAIN. Date of Evaluation: 11/03/22 Physical Therapist: Suki Jeff PT, Cert MDT - Visit Plan Frequency: 2-3x /Week Duration: 4-6 Weeks Plan: MONITOR HR AND BLOOD PRESSURE BEFORE, DURING AND AFTER EA SESSION (TARGET HR ZONE 60 TO 85 BPM AND BLOOD PRESSURE 120/70). AQUATIC THERAPY FOR ENDURANCE TRAININNG, KNEE PAIN RELIEF AND JENNIFER LE ROM, STRETCHING AND STRENGTHENING. PRE- HAB HEP INSTRUCTION FOR POSSIBLE PENDING TKR'S. - Subjective Work/Leisure: RETIRED. Present symptoms: JENNIFER KNEE PAIN RIGHT > LEFT. Present since: CHRONIC. Pain Scale: WORST 10/10, LEAST 4/10. Currently: 6/10. Is it getting better, worse or staying the same: WORSENING. Commenced as a result of: ARTHRITIS. Symptoms at onset: R KNEE PAIN. Worse: NUSTEP, STAIRS, WALKING, STANDING. Better: SITTING AND LYING. ICE. GEL SHOTS ARE MAYBE HELPING A LITTLE BIT (HAS HAD 2 OF 3). TYLONOL. IBUPROFEN. Disturbed sleep: NOT USUALLY. Previous history/Previous treatment: CORTISONE INJECTIONS. NO KNEE SURGERY. AQUATIC PHYSICAL THERAPY. Treatment this episode: TRIED CARDIAC REHAB DUE TO RECENT CARDIOVERSION FOR AFIB JUL 2022 BUT UNABLE DUE TO KNEE PAIN. Gait: VERY SLOW. VERY SMALL STEPS. VERY UNCOMFORTABLE. NO FALLING. NO AD'S. Bowel or Bladder Dysfunction: NO. Unexplained weight loss: NO. Imaging: NONE RECENT. LAST SUMMER AT [facility] - JENNIFER KNEES ARE BONE ON BONE PER PATIENT REPORT. PMH/Recent major surgery: A-FIB. OBESITY. HTN. RLS. FIBROMYALGIA. ANEMIA. ON LASIX FOR LE EDEMA. CHRONIC LBP. CPAP. 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 CURRENTLY WORKING TO REDUCE BMI. PATIENT DENIES HAVING ANY PHYSICIAN RESTRICTIONS FOR HER KNEES OR HEART. STATES SHE HAS BEEN RELEASED TO FULL ACTIVITY BY HER HEART DOCTOR. STATES SHE MONITORS HER HR AND KEEPS IT BETWEEN 60 TO 85 BPM. PATIENT REPORTS THAT HER BLOOD PRESSURE WAS GOOD BEFORE, DURING AND AFTER THE FEW CARDIAC REHAB SESSIONS SHE HAD. BLOOD PRESSURE RUNS APPROX 128/72. - Objective THIS PATIENT AMBULATES INDEP'LY INTO PT WITHOUT ANY AD'S OR LOB. WALKS WITH WIDE BASE OF SUPPORT, DECREASED CADANCE AND DECREASED JENNIFER STRIDE LENGTH. ROM deficit: RIGHT KNEE: -18 DEG EXT TO 109 DEG FLEX IN SUPINE WITH A HEEL SLIDE. -25 TO 100 DEG FLEX LEFT. Motor deficit: EJNNIFER LE'S: HIPS 4/5, KNEE'S 4-/5, ANKLES 5/5. Core strength: POOR. Palpation: LEFT LE EDEMA > RIGHT. SEE STS AND TUG TEST TIME BELOW. - Balance/Special Test Scores Lower Extremity Functional Score: 16 TUG Test Time Seconds: 21.56 30 Second Chair Rise Test Seconds: 6 - Goals Goal 1:: DECREASE C/O JENNIFER KNEE PAIN Goal Time Frame: 4-6 Weeks Goal 2:: IMPROVE RISING FROM SITTING, STANDING AND WALKING FUNCTION INCLUDING ON STEPS WITH TUG TIME <20 SEC Goal Time Frame: 4-6 Weeks Goal 3:: PATIENT WILL COMPLETE 8 STANDS IN 30 SECS TO DEMONSTRATE IMPROVED FUNCTIONAL STRENGTH Goal 4:: INCREASE JENNIFER KNEE FUNCTIONAL ROM TO EASE ADL'S Goal 5:: INCRASE JENNIFER KNEE FUNCTIONAL STRENGTH TO EASE ADL'S Goal 6:: PATIENT WILL BE INDEP WITH WATER AND HOME EX PROGRAMS FOR CONTINUED IMPROVEMENT ONCE FORMAL PHYSICAL THERAPY CONSLUDES. - Anticipated Interventions Patient/Client Instruction: Educate patient on: Condition, Plan of Care, Risk Factors For the Purpose of:: To improve self management Therapeutic Exercise to Include: Strength training, Endurance training, Flexibilty training, Gait and locomotor training, Neuromotor development, In an aquatic setting For the Purpose of:: To decrease pain, To increase ROM, To improve muscle performance and motor function, To increase tolerance to activity/condition/position, To improve ability of physical actions for home/community/work/leisure, To improve gait and locomotor functions Thank you for the opportunity to evaluate your patient. For Medicare and Medicare HMO plans, please review the plan of care and approve it. It will need to be FAXED BACK to us at [phone] for Medicare purposes. For Medicare only, by signing this I certify the plan of care. Please let me know if there are questions or concerns regarding this plan of care. Physician Signature: Date:
--- NOTE | 2022-12-02 10:03 | HP.PTDCSUM_ITS ---
It has been my pleasure to treat ELEN ARMAS referred by DIO RiosC, with the diagnosis of NON ST ELEVATED MYOCARDIAL INFARCTION AND KNEE PAIN for a total of 10 visit(s). Discharge Date: 12/02/22 Please see the following information for a summary of their discharge status. Subjective: PATIENT REPORTS SHE IS GLAD SHE DID THERAPY BECAUSE SHE FEELS STRONGER BUT HER KNEE PAIN IS NOT GETTING BETTER. STILL FLARED UP FROM INCREASED WALKING MONDAY. RESORTING TO USING CANE BECAUSE OF THE PAIN. FEELS REALLY GOOD IN THE WATER. 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 R knee Pain Intensity (Out of 10): 10 L knee Pain Intensity (Out of 10): 3 % Improvement: 10 Objective/Function: PATIENT WAS SEEN TODAY FOR RE-ASSESSMENT OF PROGRESS TOWARD THE SET PT GOALS AND THE NEED FOR FURTHER PHYSICAL THERAPY VS READINESS FOR DISCHARGE. PATIENTS LE STRENGTH HAS IMPROVED A LITTLE BIT BUT HER PAIN IS NOT GETTING BETTER. SHE IS INDEP WITH POOL EX'S AND APPROPRIATE FOR D/C. PATIENT HAS MADE SOME SMALL FUNCTIONAL IMPROVEMENTS PER BELOW BUT STILL REPORTING VERY HIGH PAIN LEVELS AND NEEDING CANE TODAY. UPON EXAM TODAY: ROM deficit: RIGHT KNEE: -17 DEG EXT TO 108 DEG FLEX IN SUPINE WITH A HEEL SLIDE. -25 TO 106 DEG FLEX LEFT. Motor deficit: JENNIFER LE'S: HIPS 4/5, KNEE'S 4/5, ANKLES 5/5. Core strength: POOR. Palpation: LEFT LE EDEMA > RIGHT. SEE STS AND TUG TEST TIME BELOW. Goal 1:: DECREASE C/O JENNIFER KNEE PAIN Goal Progress: Not Progressing Goal 2:: IMPROVE RISING FROM SITTING, STANDING AND WALKING FUNCTION INCLUDING ON STEPS WITH TUG TIME <20 SEC Goal Progress: NO SIGNIFICANT IMPROVEMEN Goal 3:: PATIENT WILL COMPLETE 8 STANDS IN 30 SECS TO DEMONSTRATE IMPROVED FUNCTIONAL STRENGTH Goal Progress: Goal Met Goal 4:: INCREASE JENNIFER KNEE FUNCTIONAL ROM TO EASE ADL'S Goal Progress: Not Progressing Goal 5:: INCRASE JENNIFER KNEE FUNCTIONAL STRENGTH TO EASE ADL'S Goal Progress: Progressing Goal 6:: PATIENT WILL BE INDEP WITH WATER AND HOME EX PROGRAMS FOR CONTINUED IMPROVEMENT ONCE FORMAL PHYSICAL THERAPY CONSLUDES. Goal Progress: Goal Met Plan: D/C TO INDEP WATER EX. PATIENT IS AGREEABLE. If there are questions or concerns regarding this patient's physical therapy, please feel free to call me at [phone]. Thank you for the referral of this patient. Sincerely, Suki Jeff, PT, Cert MDT Balance/Gait/Functional tests - Balance/Special Test Scores Lower Extremity Functional Score: 25 TUG Test Time Seconds: 21.04 Tug Test: 20-30sec.=variable mobility 30 Second Chair Rise Test Seconds: 8
== END 2022-12-02 19:00 | disposition home or self-care (01) ==
LOC: PT 09:30
PROVIDERS: PCP Family Medicine; Referring Provider Nurse Practitioner Family; Visit Provider Nurse Practitioner Family
DX: M25.569 Pain in unspecified knee (principal); I25.2 Old myocardial infarction
CPT/HCPCS: 97110; 97113; 97162; 97164

== ENCOUNTER → 2022-12-06 | Outpatient (CLI) | payer MEDICARE, OTHER, SELFPAY ==
[2022-10-18 10:25] VITALS: BMI 53.1
[2022-12-06 16:48] LABS: Absolute Lymphocyte Count 2.79 X10^3/uL (0.83-4.51); Absolute Neutrophil Count 4.8 X10^3/uL (2.0-7.7); Basophil# 0.05 X10^3/uL; Basophil% 0.6 % (0-1); Eosinophil# 0.31 X10^3/uL; Eosinophils% 3.5 % (0-5); Hemoglobin 12.7 g/dL (12.0-15.0); Lymphocyte # 2.79 X10^3/ul (0.83-4.51); Lymphocyte % 31.6 % (19-41); Mean Corp Hgb Conc 32.6 g/dL (32-36); Mean Corpuscular Hgb 28.7 pg (27.0-32.0); Mean Corpuscular Volume 88.2 fL (81-99); Mean Platelet Vol. 10.9 fl (6.2-12.0); Monocyte# 0.85 X10^3/uL; Monocyte% 9.6 % (0-10); NRBC Flagged by Analyzer 0 % (0-5); Neutrophil # 4.82 X10^3/uL (2.7-7.7); Neutrophil % 54.5 % (47-70); Platelet Count 277 K/mm3 (150-450); RBC Distribution Width CV 13.4 % (11.6-14.6); RBC Distribution Width SD 43.3 fl (35.1-43.9); Red Blood Count 4.42 M/mm3 (4.2-5.4); White Blood Count 8.8 K/mm3 (4.4-11.0)
[2022-12-06 17:22] LABS: Vitamin D,25 Hydroxy 48.9 ng/mL
[2022-12-06 17:24] LABS: ALB/GLOB Ratio 0.7 RATIO (0.9-2.4); AST(SGOT) 21 U/L (15-37); Alanine Aminotransfer ALT/SGPT 23 U/L (13-56); Albumin, Serum 3.3 g/dL (3.2-5.0); Alkaline Phosphatase 118 U/L (45-117); Anion Gap 5 (5-15); BUN 26 mg/dL (7-18); Calcium,Total 9.1 mg/dL (8.5-10.1); Chloride 105 mmol/L (98-107); Cholesterol 186 mg/dL (200); EST Glomerular Filtration Rate 66 mL/min (>60); Est Glom Filt Rate - Afr Amer 80 mL/min (>60); Ferritin 64 ng/mL (8-252); Globulin 4.5 g/dL (2.2-4.2); Glucose 94 mg/dL (74-106); High Density Lipoprotein 46 mg/dL; Iron 54 ug/dL (50-170); Iron Binding Capacity,Total 396 ug/dL (250-450); Magnesium 2.5 mg/dL (1.6-2.6); Potassium 4.4 mmol/L (3.5-5.1); Protein, Total 7.8 g/dL (6.4-8.2); Sodium Level 138 mmol/L (136-145); Triglycerides 138 mg/dL; Very Low Density Lipoprotein 28 mg/dL (5-40)
== END | disposition home or self-care (01) ==
LOC: LAB 15:51
PROVIDERS: PCP Family Medicine; Referring Provider Nurse Practitioner Adult Health; Visit Provider Nurse Practitioner Adult Health
DX: E78.5 Hyperlipidemia, unspecified (principal); I48.0 Paroxysmal atrial fibrillation; D64.9 Anemia, unspecified; D50.9 Iron deficiency anemia, unspecified; E55.9 Vitamin D deficiency, unspecified
CPT/HCPCS: 80053; 80061; 82306; 82728; 83540; 83550; 83735; 85025

== ENCOUNTER 2023-02-05 09:39 | Emergency (ER) | payer MEDICARE, OTHER, SELFPAY ==
[2022-10-18 10:25] VITALS: BMI 53.1
[2023-02-05 09:41] VITALS: BP 140/91; PULSE 85; RESP 12; TEMP 35.5; O2SAT 95; BMI 52.2
--- NOTE | 2023-02-05 10:01 | US_ITS ---
INDICATION: nausea, gas, burping, pain, chalky stools EXAMINATION: Ultrasound limited, right upper quadrant. TECHNIQUE: Patel scale and color doppler imaging was performed of the right upper quadrant. COMPARISON: No prior examinations are available for comparison. FINDINGS: LIVER: There is moderate increased echogenicity. The liver is normal in size measuring about 15.5 cm in length. The portal vein is patent with normal hepatopedal flow. No focal hepatic lesion. There is no free fluid. GALLBLADDER AND BILIARY TREE: Sludge is seen in the gallbladder. No definite gallstones. Normal gallbladder wall measuring 1.8 mm. The proximal common bile duct measures 8.3, which is mildly dilated tapering distally to 6 mm. Sonographic Morrison''s sign: Negative. PANCREAS: Mild prominence of the pancreatic duct measuring 2 to 3 mm. No focal lesion is definitely identified in the visualized portions of the pancreas. US/Gallbladder IMPRESSION: 1. Sludge in the gallbladder without evidence of gallstones. 2. Mildly dilated common bile duct and minimal prominence of the pancreatic duct. Further evaluation with MRCP might be of value. 3. Echogenic liver consistent with fatty infiltration. Electronically Signed: Talon Alfaro MD at 11:34 EDT ,
--- NOTE | 2023-02-05 10:06 | ED.VIS.GI ---
HPI HPI - GI History of Present Illness Chief Complaint: Abd Pain Narrative Narrative: 67-year-old female with abdominal pain. She states it started last evening after she ate a baked potato. About 1 hour after she ate this. She has had some nausea and dry heaves. Patient reports that she has not we will hold on any fluids. She has not been making a lot of urine this morning. No dysuria or hematuria. Patient with history of appendectomy in the past. No diarrhea or constipation. She still describes her stool as white and chalky. Patient is on Eliquis for history of A-fib and did not take this this morning out of concern she might need something surgical so her last dose was yesterday morning. Patient denies any black or bloody stools. [facility] Medical History Atrial fibrillation with rapid ventricular response Carotid artery stenosis Essential (primary) hypertension GERD (gastroesophageal reflux disease) (12/28/20) Hay fever Hyperlipidemia Knee pain Obesity Obstructive sleep apnea Ovarian cyst Paroxysmal atrial fibrillation (10/2019) Home Medications cholecalciferol (vitamin D3) 25 mcg (1,000 unit) chewable tablet (Vitamin D3) 2,000 unit PO DAILY vitamin 12/05/18 [History Last Taken Unknown] multivitamin 1 tab PO DAILY vitamin 11/30/20 [History Last Taken Unknown] ropinirole 1 mg tablet 3 mg PO QHS restless legs 11/30/20 [History Last Taken Unknown] apixaban 5 mg tablet 5 mg PO BID blood thinner 12/02/20 [History Last Taken Unknown] calcium carbonate 600 mg-vitamin D3 10 mcg (400 unit) tablet (Calcium 600 + D(3)) 1 tab PO DAILY supplement 12/27/20 [History Last Taken Unknown] cetirizine 10 mg capsule (Zyrtec) 10 mg PO DAILY PRN Allergy Symptoms 09/27/21 [History Last Taken Unknown] omeprazole 20 mg capsule,delayed release 20 mg PO DAILY GERD 09/27/21 [History Last Taken Unknown] lisinopril 20 mg tablet 20 mg PO DAILY blood pressure 10/20/21 [History Last Taken Unknown] duloxetine 30 mg capsule,delayed release 30 mg PO DAILY fibromyalgia 08/04/22 [History Last Taken Unknown] furosemide 40 mg tablet 40 mg PO BID diuectic #180 tabs 09/29/22 [Rx Last Taken Unknown] sotalol 80 mg tablet 80 mg PO BID 30 days #180 tabs 12/04/22 [Rx Last Taken Unknown] rosuvastatin 40 mg tablet 40 mg PO DAILY 12/27/22 [History Last Taken Unknown] cephalexin 250 mg capsule 250 mg PO BID #14 caps 02/05/23 [Rx Last Taken Unknown] promethazine 25 mg tablet 25 mg PO TID PRN nausea and vomiting #14 tabs 02/05/23 [Rx Last Taken Unknown] Allergy/AdvReac Type Severity Reaction Status Date / Time Penicillins Allergy Rash Verified 02/05/23 09:41 metoprolol AdvReac itching, Verified 02/05/23 09:41 fatigue, sob, leg edema Family History Mother Thyroid disorder Cancer Father Cancer Brother Diabetes Hypertension Heart disease Surgical History History of appendectomy History of left heart catheterization (12/28/20) History of tonsillectomy and adenoidectomy Social History household members: spouse housing: house Smoking Status: Never smoker alcohol intake: current alcohol intake frequency: holidays/special occasions only substance use type: does not use ROS ROS ED Constitutional Constitutional ED: Denies chills, fever(s) or sweats Eyes Eyes: Denies blurry vision or change in vision ENT ENT ED: Denies ear pain or sore throat Cardiovascular Cardiovascular: Denies chest pain, palpitations or racing heartbeat Respiratory/Chest Respiratory/Chest: Denies cough, dyspnea or sputum Gastrointestinal Gastrointestinal: Reports abdominal pain and nausea; Denies constipation, diarrhea or vomiting Genitourinary Genitourinary ED: Denies dysuria, hematuria or urinary frequency Musculoskeletal Musculoskeletal: Denies arthralgias, myalgias or neck pain Integumentary Denies abscess, Abrasions or rash Neurologic Neurologic: Denies headache(s), paresthesias or weakness Psychiatric Psychiatric: Denies anxiety, depression, suicidal ideation or suicidal thoughts Endocrine Endocrinology: Denies polydipsia or polyuria EXAM Physical Exam Const Vital Signs: 02/05/23 09:41 02/05/23 11:35 Temperature 95.9 F L Temperature Source Temporal Pulse Rate 85 83 Respiratory Rate 12 16 Blood Pressure 140/91 H 115/54 L Blood Pressure Mean 107 74 Pulse Ox 95 96 Oxygen Delivery Method Room Air Room Air Positive well nourished General Appearance ED: NAD HEENT Reports moist mucous membranes normocephalic and atraumatic Eyes PERRL and EOMs intact bilaterally Resp normal respiratory effort Effort and Inspection: Negative for respiratory distress Cardio regular rate and regular rhythm GI Palpation: tender RUQ and Morrison's sign Back/Spine no CVA tenderness Neuro CN's II-XII intact bilaterally and moves all extremities Sensorium / Orientation: alert Motor Exam: strength 5/5 throughout Psych mental status grossly normal Skin no wounds MDM MDM MDM Narrative Medical decision making narrative: 67-year-old female presenting with abdominal pain. This appears to isolate to the right upper quadrant on examination. Differential includes gastritis, peptic ulcer disease, GERD, cholelithiasis, cholecystitis, choledocholithiasis, pancreatitis, colitis, UTI, pyelonephritis, kidney stone. IV line was established. Patient medicated with morphine, Zofran, 1 L of normal saline. Exam most consistent with gallbladder disease so I will obtain a right upper quadrant ultrasound. CBC to assess white blood cell count, hemoglobin, platelets. BMP to assess renal function, electrolytes. LFTs to assess liver enzymes. Lipase to assess for pancreatitis. Urinalysis to assess for UTI. CBC shows a leukocytosis of 13.9. Globin hematocrit are stable. Platelets normal. Creatinine slightly elevated today at 1.08 however the patient was already given a liter normal saline. LFTs unremarkable. Lipase negative. Gallbladder ultrasound shows sludge and minimal dilatation of the common bile duct with mild prominence of the pancreatic duct. Patient reevaluated and is comfortable after morphine and Zofran. Went over the test results for her gallbladder and I determined we would obtain a CT of the abdomen pelvis to rule out any other acute processes or ultrasound currently looks negative. CT of the ab pelvis was performed and shows nothing acute. She is noted to have a fat-containing hernia in the ventral wall. Discussed case with Dr. De La Rosa and since she is pain-free and her lab work is otherwise unremarkable we will have her follow-up with him. I will treat her for UTI. She is given Keflex with first dose in the ED. Impression: 1. Abdominal pain 2. UTI 3. Leukocytosis 4. Nausea/vomiting Lab Data Labs: Laboratory Results - last 24 hr 02/05/23 02/05/23 10:15 11:31 WBC 13.9 H RBC 5.13 Hgb 14.5 Hct 44.5 MCV 86.7 MCH 28.3 MCHC 32.6 RDW Std Deviation 41.7 RDW Coeff of Nnamdi 13.2 Plt Count 232 MPV 11.4 Immature Gran % (Auto) 0.400 Neut % (Auto) 63.4 Lymph % (Auto) 19.8 [place] % (Auto) 4.4 Eos % (Auto) 11.5 H Baso % (Auto) 0.5 Absolute Neuts (auto) 8.8 H Absolute Lymphs (auto) 2.74 Nucleated RBC % 0 Sodium 138 Potassium 3.6 Chloride 103 Carbon Dioxide 30.0 Anion Gap 5 BUN 22 H Creatinine 1.08 H Estim Creat Clear Calc 44.86 Est GFR (MDRD) Af Amer 65 Est GFR (MDRD) Non-Af 54 L BUN/Creatinine Ratio 20.4 H Glucose 108 H Calcium 9.1 Total Bilirubin 0.40 Direct Bilirubin 0.14 AST 19 ALT 27 Alkaline Phosphatase 118 H Total Protein 7.5 Albumin 3.0 L Globulin 4.5 H Lipase 28 Urine Color Yellow Urine Clarity Sl. Cloudy Urine pH 6.0 Ur Specific Patton 1.015 Urine Protein 30 H Urine Glucose (UA) Normal Urine Ketones Negative Urine Occult Blood 10 H Urine Nitrite Positive H Urine Bilirubin 1 H Urine Urobilinogen 1 H Ur Leukocyte Esterase 500 H Urine RBC 0 SEEN Urine WBC 10-25 SEEN Ur Squamous Epith Cells 10-25 SEEN Urine Bacteria 3+ Urine Mucus 0 SEEN Radiography Diagnostic Testing: Clinical Impression(s) from Imaging Studies Gallbladder Ultrasound 02/05/23 10:01 IMPRESSION: 1. Sludge in the gallbladder without evidence of gallstones. 2. Mildly dilated common bile duct and minimal prominence of the pancreatic duct. Further evaluation with MRCP might be of value. 3. Echogenic liver consistent with fatty infiltration. Electronically Signed: Talon Alfaro MD at 11:34 EDT , Abdomen/Pelvis CT 02/05/23 11:45 IMPRESSION: 1. Nonspecific fluid-filled small bowel loops without evidence of bowel obstruction could be due to ileus or enteritis. 2. Nonvisualization of the appendix. 3. Umbilical hernia containing fat. 4. Mild free fluid in the pelvis. Electronically Signed: Talon Alfaro MD at 12:43 EDT Reading Location ID and State: [facility] / [place] Tel , Service support , Discharge Plan Triage Chief Complaint: Abd Pain Other Complaint: Nausea/Vomiting/Diarrhea ED Provider: Abdulaziz Nelson Dx/Rx/DC Orders Instructions: ED Abdominal Pain Unkn Cause Fem, ED Cystitis Female Adult Prescriptions: New promethazine 25 mg tablet 25 mg PO TID PRN (Reason: nausea and vomiting) Qty: 14 0RF cephalexin 250 mg capsule 250 mg PO BID Qty: 14 0RF No Action apixaban 5 mg tablet 5 mg PO BID Zyrtec 10 mg capsule 10 mg PO DAILY PRN (Reason: Allergy Symptoms) omeprazole 20 mg capsule,delayed release(DR/EC) 20 mg PO DAILY lisinopril 20 mg tablet 20 mg PO DAILY rosuvastatin 40 mg tablet 40 mg PO DAILY cholecalciferol (vitamin D3) [Vitamin D3] 1,000 UNIT tablet,chewable 2,000 unit PO DAILY calcium carbonate-vitamin D3 [Calcium 600 + D(3)] 600 mg(1,500mg) -400 unit Tablet 1 tab PO DAILY duloxetine 30 mg capsule,delayed release(DR/EC) 30 mg PO DAILY Patient Comments: TAKE 1-2 TABS BY MOUTH EVERY DAY FOR 30 DAYS ropinirole 1 mg tablet 3 mg PO QHS multivitamin Tablet 1 tab PO DAILY furosemide 40 mg tablet 40 mg PO BID Qty: 180 3RF sotalol 80 mg tablet 80 mg PO BID 30 Days Qty: 180 3RF Primary Care Provider: Walter Mendez Referrals: Walter Mendez MD [Primary Care Provider] - George De La Rosa MD [Med Staff - Active Staff] - 3-5 Days Disposition Disposition: Home, Self Care
[2023-02-05] MEDS: Ondansetron 4 MG/2 ML Vial IV (10:12)
[2023-02-05] MEDS: Morphine 4 MG/ML Syringe IV (10:12)
[2023-02-05] MEDS: 0.9% Normal Saline 1,000 ML 1000 ML IV (10:13)
[2023-02-05 10:19] LABS: Absolute Lymphocyte Count 2.74 X10^3/uL (0.83-4.51); Absolute Neutrophil Count 8.8 X10^3/uL (2.0-7.7); Basophil# 0.07 X10^3/uL; Basophil% 0.5 % (0-1); Eosinophil# 1.59 X10^3/uL; Eosinophils% 11.5 % (0-5); Hematocrit 44.5 % (37-47); Hemoglobin 14.5 g/dL (12.0-15.0); Lymphocyte # 2.74 X10^3/ul (0.83-4.51); Lymphocyte % 19.8 % (19-41); Mean Corp Hgb Conc 32.6 g/dL (32-36); Mean Corpuscular Hgb 28.3 pg (27.0-32.0); Mean Corpuscular Volume 86.7 fL (81-99); Mean Platelet Vol. 11.4 fl (6.2-12.0); Monocyte# 0.61 X10^3/uL; Monocyte% 4.4 % (0-10); NRBC Flagged by Analyzer 0 % (0-5); Neutrophil # 8.78 X10^3/uL (2.7-7.7); Neutrophil % 63.4 % (47-70); Platelet Count 232 K/mm3 (150-450); RBC Distribution Width CV 13.2 % (11.6-14.6); RBC Distribution Width SD 41.7 fl (35.1-43.9); Red Blood Count 5.13 M/mm3 (4.2-5.4); White Blood Count 13.9 K/mm3 (4.4-11.0)
[2023-02-05 10:52] LABS: AST(SGOT) 19 U/L (15-37); Alanine Aminotransfer ALT/SGPT 27 U/L (13-56); Alkaline Phosphatase 118 U/L (45-117); Anion Gap 5 (5-15); BUN 22 mg/dL (7-18); BUN/Creat Ratio 20.4 RATIO (10-20); Bilirubin, Direct 0.14 mg/dL (0.00-0.30); Calcium,Total 9.1 mg/dL (8.5-10.1); Chloride 103 mmol/L (98-107); Creatinine, Serum 1.08 mg/dL (0.55-1.02); EST Glomerular Filtration Rate 54 mL/min (>60); Est Glom Filt Rate - Afr Amer 65 mL/min (>60); Estimated Creatinine Clearance 44.86 ml/min; Globulin 4.5 g/dL (2.2-4.2); Glucose 108 mg/dL (74-106); Lipase 28 U/L (13-75); Potassium 3.6 mmol/L (3.5-5.1); Protein, Total 7.5 g/dL (6.4-8.2); Sodium Level 138 mmol/L (136-145)
[2023-02-05 11:35] VITALS: BP 115/54; PULSE 83; RESP 16; O2SAT 96
[2023-02-05 11:42] LABS: Mucous, Urine 0 SEEN /hpf (<or=2+); Red Blood Cells-Urine 0 SEEN /hpf (0-5)
--- NOTE | 2023-02-05 11:45 | CT_ITS ---
STUDY: CT ABDOMEN AND PELVIS WITH CONTRAST - URINARY TRACT REASON FOR EXAM: Female, 67 years old. Right upper quadrant pain RADIATION DOSAGE (If Supplied By Facility): CTDIvol = ( 17.07 ) mGy, DLP = ( 1343.02 ) mGycm TECHNIQUE: IV 100mL Isovue-300 was administered. Transaxial images were obtained from the dome of the diaphragm to the symphysis pubis in the arterial, nephrographic and excretory phases. Multiplanar coronal and sagittal images were reformatted. Individualized Dose Optimization Techniques Were Used For This CT. COMPARISON: No prior examinations are available for comparison. FINDINGS: The visualized lung bases are unremarkable. The visualized portions of the heart are within normal limits. Mild coronary calcifications. Normal liver. Distended gallbladder without evidence of gallstones. Borderline common bile duct measuring up to 6 mm. Normal spleen. Normal pancreas. Normal bilateral adrenal glands. Normal visualized stomach. Nonspecific fluid-filled small bowel loops. No evidence of bowel obstruction. Fecal retention. No evidence of acute diverticulitis. There is non-visualization of the appendix. There is atherosclerotic calcification of the abdominal aorta, without a demonstrated aneurysm. No retroperitoneal adenopathy. Anteriorly malrotated right kidney. No evidence of hydronephrosis. Normal left kidney. Normal urinary bladder. Mild fluid in the pelvis. No pelvic mass. Umbilical hernia containing fat. Multilevel degenerative changes of the spine. CT/Abdomen/Pelvis W IV Cont ONLY IMPRESSION: 1. Nonspecific fluid-filled small bowel loops without evidence of bowel obstruction could be due to ileus or enteritis. 2. Nonvisualization of the appendix. 3. Umbilical hernia containing fat. 4. Mild free fluid in the pelvis. Electronically Signed: Talon Alfaro MD at 12:43 EDT ,
[2023-02-05 12:10] LABS: Color, Urine Yellow (Yellow); Glucose, Dipstick Normal (Normal); Ketone-Dipstick Negative (Negative); Leukocyte Esterase-Dipstick 500 /ul (Negative); Nitrite-Dipstick Positive (Negative); Occult Blood-Urine 10 /ul (Negative); Protein-Dipstick 30 mg/dl (Negative); Specific Gravity, Urine 1.015 (1.002-1.030); Urine Clarity Sl. Cloudy (Clear); Urine Urobilinogen 1 mg/dl (Normal)
[2023-02-05 12:12] LABS: Urine Bilirubin Dipstick 1 mg/dL (Negative)
[2023-02-05 12:23] LABS: Bacteria 3+ /hpf (None Seen); Squamous Epithelial Cells - UA 10-25 SEEN /hpf (5-10); White Blood Cells 10-25 SEEN /hpf (0-5)
== END 2023-02-05 13:35 | disposition home or self-care (01) ==
PROVIDERS: Emergency Provider Student in an Organized Health Care Education/Training Program; PCP Family Medicine; Visit Provider Student in an Organized Health Care Education/Training Program
DX: R10.9 Unspecified abdominal pain (principal); N39.0 Urinary tract infection, site not specified; D72.829 Elevated white blood cell count, unspecified; R11.2 Nausea with vomiting, unspecified; G47.33 Obstructive sleep apnea (adult) (pediatric)
CPT/HCPCS: 74177; 76705; 80048; 80076; 81001; 83690; 85025; 96361; 96374; 96375; 99284; J7030; Q9967; J2405

== ENCOUNTER 2023-02-21 12:37 | Day surgery (SDC) | payer MEDICARE, OTHER, SELFPAY ==
[2022-10-18 10:25] VITALS: BMI 53.1
--- NOTE | 2023-02-21 12:53 | HP.PCM_ITS ---
History and Physical Date of Admission: 02/21/23 Chief Complaint: anemia Details: ELEN ARMAS, is a 67 F who presents to the office today for anemia, referred by hematology. Hgb 12 on 08/24/22. Stool hemoccult positive on 08/26/22. Iron was 76 on 08/24/22 and 34 on 09/13/22. She was on iron supplement last year. She is on Eliquis for CVA protection per cardiology where she is followed for atrial fibrillation; in 07/2022 she had atrial flutter, non-STEMI, then had cardioversion. She has no GI complaints at all. Denies nausea, vomiting, he matemesis, heartburn, acid reflux, dysphagia, abdominal pain, diarrhea, constipation, melena, hematochezia. No prior screening colonoscopy. Takes ibuprofen 400-600 mg daily for knee pain. Has appt for 2nd opinion with orthopedics. ROS Const Constitutional: Positive for fatigue; No fever(s), frequent falls, headache(s) or weight change ENT ENT: No headache(s) or difficulty swallowing Cardio Cardiology: Positive for leg pain with exertion Gastro GI: Positive for heartburn and Blood in stool; No abdominal pain, bloating, change in bowel habits, constipation, diarrhea, difficulty swallowing, Vomiting blood/hematemesis, nausea/dyspepsia or vomiting Musc Musculoskeletal: Positive for abnormal gait, joint pain, joint swelling, stiffness, Arthritis, restless legs and leg pain with exertion; No back pain, muscle cramps, muscle weakness, numbness, tingling, sciatica or leg pain at night Skin Skin: No dry skin, lesions, itchy eyes or rash Neuro Neurology: Positive for abnormal gait and restless legs; No dizziness, frequent falls, headache(s), numbness, tingling, tremor(s), Increased tone in limbs, paralysis or seizures Psych Psychiatric: No anxiety, No depression, No paranoia, No Behavioral Problems, No Compulsive Behavior, No hyperactivity, No inattentiveness, No obsessions/compulsions, Positive for Temper Tantrums and No suicidal ideation Endo Endocrine: Positive for fatigue; No weight change Aller/Imm Allergy/Immunologic: No itchy eyes Walker/Lymp Hematologic/Lymphatic: Positive for easy bleeding; No easy bruising Exam Const General: cooperative and comfortable Orientation: alert, awake and oriented x3 Other: walks with a cane HENMT Head: normal to inspection Eyes Conjunctivae: conjunctivae normal Sclera: sclerae normal Resp Effort & Inspection: normal respiratory effort Quality Reporting Tobacco Screening ([facility] 138) Smoking Status: Never smoker Assessment and Plan Assessment and Plan (1) Anemia: Status: Chronic Plan: 67 yr old female with iron deficiency anemia, stool positive for occult blood, on Eliquis (will check with cardiology re holding it for endoscopies), takes ibuprofen for OA. Will update labs today for anemia. Will schedule her for EGD and colonoscopy, with office visit 2 wks later. Orders: Orders Ferritin Today D64.9 - Anemia, unspecified, I48.0 - Paroxysmal atrial fibrillation Iron+Iron Binding Capacity Today D64.9 - Anemia, unspecified CBC W/Diff, Automated Today D64.9 - Anemia, unspecified, I48.0 - Paroxysmal atrial fibrillation I have examined the patient and the H&P has been reviewed. There are no clinical changes since date of exam.
[2023-02-21 13:09] VITALS: BP 155/75; PULSE 67; RESP 18; TEMP 36.6; O2SAT 98; BMI 51.6
[2023-02-21] MEDS: Lactated Ringers 1,000 ML 15 ML IV (13:21)
--- NOTE | 2023-02-21 14:00 | IMM_PTH ---
PATIENT: ELEN ARMAS LOC: EN U#:[id number] AGE/SX: 67/F ROOM: RE02/21/[address]: Dr. Dewayne Soares DO : 1955 BED: DIS: 02/21/2023 SPEC #: [id number] RECD: 02/22/23 14:30 STATUS: ELSIE REHeidi #: [id number] RELL: 02/21/23 14:[address]: Dewayne Soares DEPT: IMMUNOHISTOCHEMISTRY RECD BY: Katie Arrieta ENTERED: 02/22/23 14:31 SP TYPE: IMMUNO OTHR DR: Dr. Walter Mendez MD Tissues: A - Stomach, NOS Procedures: H Pylori (initial) PHYSICIAN & INSTITUTION [place] [address] SPECIMEN INFORMATION: Tissue Source: A - Gastric antrum Clinical Info: Anemia Specimen Number: [id number] CPT code: 89018 METHODOLOGY: Deparaffinized sections of prefer/formalin-fixed tissue or PAP/DQ stained slides are incubated with monoclonal/polyclonal antibodies/oligonucleotide probes. Localization is made via biotin free immunoperoxidase method. Appropriate controls are performed and reacted as expected. Results on target cell population are indicated in the following table: RESULTS: ANTIBODY / CLONE RESULT Block A H Pylori (polyclonal) negative These tests were developed and their performance characteristics determined by [facility]. They may not have been cleared or approved by the U.[place]. Food and Drug Administration. The FDA has determined that such clearance or approval is not necessary. The above immunohistochemical/dualISH markers are ordered and reviewed by the Pathologist. INTERPRETATION: A. Gastric antrum, biopsy: Negative for Helicobacter pylori organisms. SJ:renard 02/23/2023
--- NOTE | 2023-02-21 14:00 | COLBX_PTH ---
PATIENT: ELEN ARMAS LOC: EN U#:[id number] AGE/SX: 67/F ROOM: RE02/21/[address]: Dr. Dewayne Soares DO : 1955 BED: DIS: 02/21/2023 SPEC #: [id number] RECD: 02/21/23 16:20 STATUS: ELSIE JACKELINE #: [id number] RELL: 02/21/23 14:[address]: Dewayne Soares DEPT: SURGICAL PATHOLOGY RECD BY: Miah Palomares ENTERED: 02/22/23 07:27 SP TYPE: COLON BX OTHR DR: Dr. Walter Mendez MD Tissues: A - Gastric mucous membrane B - Esophagus, NOS C - COLON BIOPSY D - Sigmoid colon biopsy E - COLON BIOPSY F - Sigmoid colon biopsy Procedures: Special Stain Group II Surgery Specimen Level IV Alcian Blue/PAS (control) HEADER OPERATION: Colonoscopy with biopsies and polypectomy, EGD ([facility]) with biopsy PRE-OP DIAGNOSIS: Anemia TISSUE SUBMITTED: A - Gastric antrum biopsy for H. pylori and path, B - Distal esophagus biopsy, C - Hepatic flexure polyp, D - Sigmoid colon biopsy, E - Random colon biopsies, F - Sigmoid polyp MICROSCOPIC DIAGNOSIS A. Gastric antrum, biopsy: Moderate gastritis. See microscopic description and comment. B. Distal esophagus, biopsy: Fragments of gastric mucosa with chronic inflammation. Intestinal metaplasia (goblet cell metaplasia) is not identified. See comment. C. Hepatic flexure polyp, biopsy: A minute fragment of tubular adenoma. Fragments of fecal material. See comment. D. Sigmoid colon, biopsy: Fragments of colonic mucosa, no pathologic diagnosis. E. Colon, random biopsy: Fragments of colonic mucosa, no pathologic diagnosis. F. Sigmoid polyp, biopsy: Tubular adenoma. Fragments of fecal material. SJ:renard 02/23/2023 COMMENT A. The results of immunohistochemistry for Helicobacter pylori will be reported separately ([id number]). B. Alcian blue/PAS stain with matched control is used in the evaluation of the specimen. C. The specimen predominantly consists of fecal material. MICROSCOPIC DESCRIPTION Slides are reviewed. A. The specimen shows fragments of gastric mucosa with chronic inflammatory cell infiltrates in the lamina propria consisting of lymphocytes and plasma cells, consistent with moderate chronic gastritis. GROSS DESCRIPTION A - Received in fixative is one container labeled with the patient's name and designated gastric antrum. The specimen consists of multiple irregular fragments of light kline soft tissue that in aggregate measure 0.8 x 0.6 x 0.1 cm. The specimen is totally submitted in one cassette. B - Received in fixative is one container labeled with the patient's name and designated distal esophagus. The specimen consists of multiple irregular fragments of light kline soft tissue that in aggregate measure 0.8 x 0.6 x 0.1 cm. The specimen is totally submitted in one cassette. C - Received in fixative is one container labeled with the patient's name and designated hepatic flexure polyp. The specimen consists of multiple irregular fragments of light kline soft tissue that in aggregate measure 1.5 x 0.5 x 0.1 cm. The specimen is totally submitted in one cassette. D - Received in fixative is one container labeled with the patient's name and designated sigmoid colon. The specimen consists of multiple irregular fragments of light kline soft tissue that in aggregate measure 0.8 x 0.2 x 0.1 cm. The specimen is totally submitted in one cassette. E - Received in fixative is one container labeled with the patient's name and designated random colon biopsy. The specimen consists of multiple irregular fragments of light kline soft tissue that in aggregate measure 1.5 x 0.5 x 0.1 cm. The specimen is totally submitted in one cassette. F - Received in fixative is one container labeled with the patient's name and designated sigmoid polyp. The specimen consists of one irregular fragment of light kline soft tissue that measures 0.5 x 0.4 x 0.2 cm. A few fragments of fecal material are also noted. The specimen is totally submitted in one cassette. / SJ:rg 02/22/2023 TC:1 CPT: 23505 x6, [id number]
[2023-02-21 14:55] VITALS: BP 117/56; BP 155/75; PULSE 68; RESP 18; TEMP 36.2; O2SAT 94
--- NOTE | 2023-02-21 14:58 | OP.EGD_ITS ---
Patient Name: Mirlande Beltrán Procedure Date: 02/21/2023 2:07 PM Date of : 1955 Age: 67 Procedure: Upper GI endoscopy Indications: Epigastric abdominal pain, Functional Dyspepsia, Heartburn Providers: Dewayne Soares DO Referring MD: Walter Mendez Medicines: Monitored Anesthesia Care Patient Profile: This is a 67 year old female. Refer to note in patient chart for documentation of history and physical. Patient has symptoms of acute epigastric abdominal pain. Complications: No immediate complications. Procedure: Pre-Anesthesia Assessment: - Prior to the procedure, a History and Physical was performed, and patient medications and allergies were reviewed. The patient is competent. The risks and benefits of the procedure and the sedation options and risks were discussed with the patient. All questions were answered and informed consent was obtained. Patient identification and proposed procedure were verified by the physician in the pre-procedure area. Mental Status Examination: alert and oriented. Airway Examination: normal oropharyngeal airway and neck mobility. Respiratory Examination: clear to auscultation. CV Examination: normal. Prophylactic Antibiotics: The patient does not require prophylactic antibiotics. Prior Anticoagulants: The patient has taken no previous anticoagulant or antiplatelet agents. ASA Grade Assessment: II - A patient with mild systemic disease. After reviewing the risks and benefits, the patient was deemed in satisfactory condition to undergo the procedure. The anesthesia plan was to use monitored anesthesia care (MAC). Immediately prior to administration of medications, the patient was re-assessed for adequacy to receive sedatives. The heart rate, respiratory rate, oxygen saturations, blood pressure, adequacy of pulmonary ventilation, and response to care were monitored throughout the procedure. The physical status of the patient was re-assessed after the procedure. After obtaining informed consent, the endoscope was passed under direct vision. Throughout the procedure, the patient's blood pressure, pulse, and oxygen saturations were monitored continuously. The Colonoscope was introduced through the mouth, and advanced to the second part of duodenum. The upper GI endoscopy was accomplished without difficulty. The patient tolerated the procedure well. Scope In: 2:18:24 PM Scope Out: 2:23:20 PM Total Procedure Duration Time 0 hours 4 minutes 56 seconds Findings: LA Grade A (one or more mucosal breaks less than 5 mm, not extending between tops of 2 mucosal folds) esophagitis with no bleeding was found 39 to 40 cm from the incisors. Biopsies were taken with a cold forceps for histology. Verification of patient identification for the specimen was done. Estimated blood loss was minimal. A moderate Schatzki ring was found in the lower third of the esophagus. A guidewire was placed and the scope was withdrawn. Dilation was performed with a Savary dilator with no resistance at 45 Fr. The dilation site was examined and showed moderate improvement in luminal narrowing. Estimated blood loss was minimal. A small hiatal hernia was present. A small amount of food (residue) was found in the gastric body. Patchy mildly erythematous mucosa without bleeding was found in the gastric antrum. Biopsies were taken with a cold forceps for histology. Verification of patient identification for the specimen was done. Estimated blood loss was minimal. The second portion of the duodenum was normal. Impression: - LA Grade A reflux esophagitis. Biopsied. - Moderate Schatzki ring. Dilated. - Small hiatal hernia. - A small amount of food (residue) in the stomach. - Erythematous mucosa in the antrum. Biopsied. - Normal second portion of the duodenum. Recommendation: - Discharge patient to home. - Resume previous diet. - Continue present medications. - Await pathology results. - Repeat upper endoscopy for surveillance. - Gastric emptying study Procedure Code(s): --- Professional --- 60109, Esophagogastroduodenoscopy, flexible, transoral; with insertion of guide wire followed by passage of dilator(s) through esophagus over guide wire 85102, 59, Esophagogastroduodenoscopy, flexible, transoral; with biopsy, single or multiple CPT copyright 2017 [employer]. All rights reserved. The codes documented in this report are preliminary and upon director of scout work review may be revised to meet current compliance requirements. Dewayne Soares DO 02/21/2023 2:57:57 PM This report has been signed electronically. Number of Addenda: 0 Note Initiated On: 02/21/2023 2:07 PM
--- NOTE | 2023-02-21 14:58 | OP.CCLET_ITS ---
02/21/2023 Walter Mendez [address] [place] [address] Re : Upper GI endoscopy procedure for [facility] Dear Dr. Mendez This procedure was performed on Tuesday, February 21, 2023. My impressions and recommendations are as follows: Impressions : - LA Grade A reflux esophagitis. Biopsied. - Moderate Schatzki ring. Dilated. - Small hiatal hernia. - A small amount of food (residue) in the stomach. - Erythematous mucosa in the antrum. Biopsied. - Normal second portion of the duodenum. Recommendations : - Discharge patient to home. - Resume previous diet. - Continue present medications. - Await pathology results. - Repeat upper endoscopy for surveillance. - Gastric emptying study My findings are described in the full procedure note, which is enclosed. If I can be of further assistance, please feel free to contact me at . Sincerely, Dewayne Soares, 02/21/2023 2:57:57 PM This report has been signed electronically.
[2023-02-21 15:00] VITALS: BP 110/56; BP 155/75; PULSE 73; RESP 18; O2SAT 94
--- NOTE | 2023-02-21 15:03 | OP.COLON_ITS ---
Patient Name: Mirlande Beltrán Procedure Date: 02/21/2023 2:24 PM Date of : 1955 Age: 67 Procedure: Colonoscopy Indications: Screening for colorectal malignant neoplasm Providers: Dewayne Soares DO Referring MD: Walter Mendez Medicines: Monitored Anesthesia Care Patient Profile: This is a 67 year old female. Refer to note in patient chart for documentation of history and physical. Patient has symptoms of acute epigastric abdominal pain. Last Colonoscopy: date unknown. Unable to locate last colonoscopy report. Complications: No immediate complications. Procedure: Pre-Anesthesia Assessment: - Prior to the procedure, a History and Physical was performed, and patient medications and allergies were reviewed. The patient is competent. The risks and benefits of the procedure and the sedation options and risks were discussed with the patient. All questions were answered and informed consent was obtained. Patient identification and proposed procedure were verified by the physician in the pre-procedure area. Mental Status Examination: alert and oriented. Airway Examination: normal oropharyngeal airway and neck mobility. Respiratory Examination: clear to auscultation. CV Examination: normal. Prophylactic Antibiotics: The patient does not require prophylactic antibiotics. Prior Anticoagulants: The patient has taken no previous anticoagulant or antiplatelet agents. ASA Grade Assessment: II - A patient with mild systemic disease. After reviewing the risks and benefits, the patient was deemed in satisfactory condition to undergo the procedure. The anesthesia plan was to use monitored anesthesia care (MAC). Immediately prior to administration of medications, the patient was re-assessed for adequacy to receive sedatives. The heart rate, respiratory rate, oxygen saturations, blood pressure, adequacy of pulmonary ventilation, and response to care were monitored throughout the procedure. The physical status of the patient was re-assessed after the procedure. After I obtained informed consent, the scope was passed under direct vision. Throughout the procedure, the patient's blood pressure, pulse, and oxygen saturations were monitored continuously. The Colonoscope was introduced through the anus and advanced to the terminal ileum. The colonoscopy was performed without difficulty. The patient tolerated the procedure well. The quality of the bowel preparation was adequate. Scope In: 2:25:22 PM Scope Withdrawal Time 0 hours 12 minutes 59 seconds Scope Out: 2:45:45 PM Total Procedure Duration Time 0 hours 20 minutes 23 seconds Findings: The perianal and digital rectal examinations were normal. Two sessile polyps were found in the sigmoid colon and hepatic flexure. The polyps were 1 to 2 mm in size. These polyps were removed with a hot snare. Resection and retrieval were complete. Verification of patient identification for the specimen was done. Estimated blood loss was minimal. A few small-mouthed diverticula were found in the recto-sigmoid colon and sigmoid colon. An area of mildly congested mucosa was found in the sigmoid colon, at the hepatic flexure, in the ascending colon and in the cecum. Biopsies were taken with a cold forceps for histology. Verification of patient identification for the specimen was done. Estimated blood loss was minimal. Impression: - Two 1 to 2 mm polyps in the sigmoid colon and at the hepatic flexure, removed with a hot snare. Resected and retrieved. - Diverticulosis in the recto-sigmoid colon and in the sigmoid colon. - Congested mucosa in the sigmoid colon, at the hepatic flexure, in the ascending colon and in the cecum. Biopsied. Recommendation: - Discharge patient to home. - Resume previous diet. - Continue present medications. - Await pathology results. - Repeat colonoscopy in 5 years for surveillance. Procedure Code(s): --- Professional --- 58854, Colonoscopy, flexible; with removal of tumor(s), polyp(s), or other lesion(s) by snare technique 42075, 59, Colonoscopy, flexible; with biopsy, single or multiple CPT copyright 2017 [employer]. All rights reserved. The codes documented in this report are preliminary and upon reaming machine tender review may be revised to meet current compliance requirements. Dewayne Soares DO 02/21/2023 3:03:10 PM This report has been signed electronically. Number of Addenda: 0 Note Initiated On: 02/21/2023 2:24 PM
--- NOTE | 2023-02-21 15:03 | OP.CCLET_ITS ---
02/21/2023 Walter Mendez [address] [place] [address] Re : Colonoscopy procedure for [facility] Dear Dr. Mendez This procedure was performed on Tuesday, February 21, 2023. My impressions and recommendations are as follows: Impressions : - Two 1 to 2 mm polyps in the sigmoid colon and at the hepatic flexure, removed with a hot snare. Resected and retrieved. - Diverticulosis in the recto-sigmoid colon and in the sigmoid colon. - Congested mucosa in the sigmoid colon, at the hepatic flexure, in the ascending colon and in the cecum. Biopsied. Recommendations : - Discharge patient to home. - Resume previous diet. - Continue present medications. - Await pathology results. - Repeat colonoscopy in 5 years for surveillance. My findings are described in the full procedure note, which is enclosed. If I can be of further assistance, please feel free to contact me at . Sincerely, Dewayne Soares, 02/21/2023 3:03:10 PM This report has been signed electronically.
[2023-02-21 15:05] VITALS: BP 132/83; BP 155/75; PULSE 73; RESP 18; O2SAT 95
[2023-02-21 15:10] VITALS: BP 128/65; BP 155/75; PULSE 73; RESP 18; TEMP 36.8; O2SAT 94
[2023-02-21 15:35] VITALS: BP 155/75
== END 2023-02-21 16:03 | disposition home or self-care (01) ==
LOC: EN 12:37 → AC 12:39
PROVIDERS: PCP Family Medicine; Referring Provider Family Medicine; Visit Provider Internal Medicine Gastroenterology
PROC: 0DJD8ZZ Inspection of Lower Intestinal Tract, Via Natural or Artificial Opening Endoscopic (ICD-10-PCS; CPT 45378; principal; 2023-02-21 13:55)
DX: D12.5 Benign neoplasm of sigmoid colon (principal); I48.0 Paroxysmal atrial fibrillation; E66.01 Morbid (severe) obesity due to excess calories; Z68.43 Body mass index [BMI] 50.0-59.9, adult; D12.3 Benign neoplasm of transverse colon; K29.70 Gastritis, unspecified, without bleeding; K31.89 Other diseases of stomach and duodenum; K22.2 Esophageal obstruction; K21.00 Gastro-esophageal reflux disease with esophagitis, without bleeding; K63.89 Other specified diseases of intestine; D64.9 Anemia, unspecified; K44.9 Diaphragmatic hernia without obstruction or gangrene; K57.30 Diverticulosis of large intestine without perforation or abscess without bleeding; I25.2 Old myocardial infarction; I10 Essential (primary) hypertension; G47.33 Obstructive sleep apnea (adult) (pediatric); E78.00 Pure hypercholesterolemia, unspecified; G25.81 Restless legs syndrome; Z79.899 Other long term (current) drug therapy; Z79.01 Long term (current) use of anticoagulants
CPT/HCPCS: 43248; 43239; 45380; 45385; 88305; 88313; 88342; J7120; J2405

== ENCOUNTER → 2023-03-10 | Outpatient (CLI) | payer MEDICARE, OTHER, SELFPAY ==
[2022-10-18 10:25] VITALS: BMI 53.1
--- NOTE | 2023-03-10 10:00 | NM_ITS ---
INDICATION: nausea and vomiting EXAMINATION: NUCLEAR MEDICINE GASTRIC EMPTYING - NM Gastric Emptying Study (solid, liquid or both) TECHNIQUE: Radiopharmaceutical (solid portion of the exam): 1.0 mCi of Tc99m Sulfur Colloid mixed with oat meal. Oral administration. Imagin minutes. COMPARISON: CT 02/05/2023 FINDINGS: T1/2 is measured at 32.3 minutes. Normal downward emptying curve. At 50 minutes, approximately 80% emptying. Visually, there is normal passage of isotope from the stomach into the small bowel. NM/Gastric Emptying Study IMPRESSION: Normal gastric emptying time with solids. Electronically Signed: Paulo Smith (Brooks), at 12:08 EDT ,
== END | disposition home or self-care (01) ==
LOC: NM 09:59
PROVIDERS: PCP Family Medicine; Referring Provider Internal Medicine Gastroenterology; Visit Provider Internal Medicine Gastroenterology
DX: K31.84 Gastroparesis (principal); E11.43 Type 2 diabetes mellitus with diabetic autonomic (poly)neuropathy
CPT/HCPCS: 78264; A9541

== ENCOUNTER → 2023-03-23 | Outpatient (CLI) | payer MEDICARE, OTHER, SELFPAY ==
[2022-10-18 10:25] VITALS: BMI 53.1
[2023-03-23 08:54] LABS: Vitamin D,25 Hydroxy 49.7 ng/mL
[2023-03-23 08:59] LABS: Hemoglobin A1c 5.3 % (3.8-5.6)
[2023-03-23 09:03] LABS: Cholesterol 108 mg/dL (200); High Density Lipoprotein 44 mg/dL; Thyroid Stim Hormone (TSH) 2.62 uIU/mL (0.358-3.74); Triglycerides 103 mg/dL; Very Low Density Lipoprotein 21 mg/dL (5-40)
--- NOTE | 2023-03-24 09:36 | PFT ---
INTRODUCTION: The patient is a 67-year-old female who presents for pulmonary function studies secondary to a diagnosis of dyspnea on exertion. Respiratory therapy reported good patient effort. Bronchodilators were used during testing. INTERPRETATION: Forced expiration spirometry demonstrates no evidence of a large airways obstructive ventilatory defect. There was no significant response to aerosolized bronchodilators. Body plethysmography was performed and revealed lung volumes to be within normal limits. Diffusing capacity by single breath CO was also within normal limits. IMPRESSION: Grossly normal pulmonary function studies.
[2023-03-29 18:08] LABS: Cotinine Screen Blood <1.0 ng/mL (.); Nicotine Blood <1.0 ng/mL (.); Vitamin B1, Thiamine 144.5 nmol/L (66.5-200.0); Zinc, Plasma or Serum 68 ug/dL (44-115)
== END | disposition home or self-care (01) ==
PROVIDERS: Registered Nurse Nephrology; PCP Family Medicine; Referring Provider Nurse Practitioner Acute Care; Visit Provider Nurse Practitioner Acute Care
DX: Z01.812 Encounter for preprocedural laboratory examination (principal); E66.01 Morbid (severe) obesity due to excess calories; Z68.43 Body mass index [BMI] 50.0-59.9, adult; Z01.89 Encounter for other specified special examinations; G47.30 Sleep apnea, unspecified; I10 Essential (primary) hypertension; M54.9 Dorsalgia, unspecified; E78.5 Hyperlipidemia, unspecified; K21.9 Gastro-esophageal reflux disease without esophagitis; M25.50 Pain in unspecified joint; R73.03 Prediabetes
CPT/HCPCS: 36415; 80061; 80323; 82306; 83036; 84425; 84443; 84630; 94060; 94726; 94729; G0480

== ENCOUNTER → 2023-03-30 | Outpatient (CLI) | payer MEDICARE, OTHER, SELFPAY ==
[2022-10-18 10:25] VITALS: BMI 53.1
[2023-03-30 08:57] VITALS: PULSE 62; PULSE 64; PULSE 72; PULSE 73; PULSE 79; PULSE 80; PULSE 81; O2SAT 92; O2SAT 94; O2SAT 95; O2SAT 96; O2SAT 97
--- NOTE | 2023-03-30 14:00 | RAD_ITS ---
INDICATION: PAIN EXAMINATION/TECHNIQUE: X-RAY - RIGHT XR Shoulder COMPARISON: Chest x-ray August 04, 2022 FINDINGS: 4 views of the right shoulder were obtained. No acute fracture is identified. No dislocation. Small calcification near the rotator cuff insertion. Mild degenerative changes of the acromioclavicular joint. RAD/Shoulder min 2 Views IMPRESSION: No acute fracture or dislocation identified. Possible calcific tendinitis of the rotator cuff. Electronically Signed: Gilbert Benavides MD at 20:00 EDT ,
--- NOTE | 2023-04-03 05:51 | WT_ITS ---
PSN 6 Minute Walk Test 6 Minute Walk Test 6 Minute Walk Test: 6 Minute Walk Test PSN:6-Minute Walk Test Start: 03/30/23 08:57 Freq: Status: Active Protocol: RESP.6MINW Document 03/30/23 08:57 [facility] (Rec: 03/30/23 09:02 [facility] Desktop) 6 Minute Walk Test Date Performed 03/30/23 Time Performed 08:15 Height 5 ft 5 in Weight: 140.614 kg Weight in Pounds 310.[address]: Dania Assistive device used: Cane Pre-test Oxygen Delivery Method Room Air Pulse Ox 97 Pulse Rate (60-100) 62 Dyspnea Iesha Scale (0-10) 0 Exertion Iesha Scale (6-20) 6 1st minute Oxygen Delivery Method Room Air Pulse Ox 95 Pulse Rate (60-100) 73 2nd minute Oxygen Delivery Method Room Air Pulse Ox 96 Pulse Rate (60-100) 72 3rd minute Oxygen Delivery Method Room Air Pulse Ox 94 Pulse Rate (60-100) 79 4th minute Oxygen Delivery Method Room Air Pulse Ox 96 Pulse Rate (60-100) 80 5th minute Oxygen Delivery Method Room Air Pulse Ox 95 Pulse Rate (60-100) 79 6th minute Oxygen Delivery Method Room Air Pulse Ox 92 Pulse Rate (60-100) 81 Dyspnea Iesha Scale (0-10) 0.5 Exertion Iesha Scale (6-20) 13 Post-test Oxygen Delivery Method Room Air Pulse Ox 97 Pulse Rate (60-100) 64 Full Laps Walked 7 Partial Lap, Number of Tiles Walked 13 Total Distance Walked (ft) 426 Interpretation Interpretation: The patient was able to ambulate only 426 feet over the course of 6 minutes on room air with the assistance of a cane and no breaks. The patient experienced no significant tachycardia or desaturation during testing. These findings are consistent with a musculoskeletal limitation exercise tolerance. Recommendations Recommendations: No supplemental oxygen is indicated at this time. However, could consider retesting if patient's mobility improves.
== END | disposition home or self-care (01) ==
PROVIDERS: PCP Family Medicine; Referring Provider Nurse Practitioner Acute Care; Visit Provider Nurse Practitioner Acute Care
DX: M25.511 Pain in right shoulder (principal)
CPT/HCPCS: 73030; 94618

== ENCOUNTER → 2023-04-05 | Outpatient (CLI) | payer MEDICARE, OTHER, SELFPAY ==
[2022-10-18 10:25] VITALS: BMI 53.1
--- NOTE | 2023-04-05 08:14 | US_ITS ---
STUDY: ABDOMINAL ULTRASOUND REASON FOR EXAM: Female, 67 years old. Abdominal pain TECHNIQUE: Transabdominal ultrasound was performed with real-time and static emerson scale imaging. TECHNICAL QUALITY: Limited. Examination limited due to a combination of factors including body habitus and bowel gas. COMPARISON: CT of abdomen and pelvis dated February 05, 2023. Right upper quadrant ultrasound dated February 05, 2023 FINDINGS: Liver: The liver measures 15.6 cm. There is increased echogenicity consistent with fatty infiltration. The bile ducts are within normal limits. There is hepatic color flow. The direction of portal flow is hepatopetal. There is no demonstrated mass lesion. Gallbladder: Normal distended gallbladder. The gallbladder wall measures 3 mm. There is no pericholecystic fluid. There are no gallstones. A small amount of sludge is present. Common Bile Duct (C.B.D.): The common bile duct measures 6 mm. Pancreas: Limited visualization of the head and mid body of the pancreas without a gross abnormality. The remaining aspects of the pancreas are not seen on this study. Spleen: Normal size of the spleen. The spleen measures 10.1 x 4.8 x 5.7 cm. Right Kidney: Normal size of the right kidney. The right kidney measures 10.8 x 6.5 x 5.0 cm. Normal renal cortex. There is no demonstrated renal mass or cyst. There is no right hydronephrosis. Left Kidney: Normal size of the left kidney. The left kidney measures 11.8 x 5.9 x 5.2 cm. Normal renal cortex. There is no demonstrated renal mass or cyst. There is no left hydronephrosis. Aorta: 1.94 cm maximally I.V.C.: The IVC is patent. There is no ascites. US/Abdomen Complete IMPRESSION: 1. Small amount of gallbladder sludge Electronically Signed: Modesto Kramer MD at 17:25 EDT ,
--- NOTE | 2023-04-05 09:30 | RAD_ITS ---
EXAMINATION: Noncontrast UPPER GI SERIES INDICATION: Female, 67 years heartburn. Findings were metastatic surgery. FLUOROSCOPY TIME (if supplied): (1:34) minutes/seconds. 20 one images were obtained. TECHNIQUE: Radiographic and fluoroscopic images of the distal esophagus, stomach, and proximal small intestine were obtained following the oral ingestion of barium. COMPARISON: None. FINDINGS: The mucosa of the esophagus, stomach and duodenum is normal in appearance without evidence for stricture, ulceration, mass or diverticulum. There is no evidence for hiatal hernia or gastroesophageal reflux. The stomach and duodenum are unremarkable. RAD/Upper GI Dual Contrast IMPRESSION: 1. Normal air-contrast upper gastrointestinal study. Electronically Signed: Alfie Barrera MD at 10:05 EDT ,
== END | disposition home or self-care (01) ==
LOC: US 08:12
PROVIDERS: PCP Family Medicine; Referring Provider Registered Nurse Nephrology; Visit Provider Registered Nurse Nephrology
DX: G47.30 Sleep apnea, unspecified (principal); E66.01 Morbid (severe) obesity due to excess calories; Z68.43 Body mass index [BMI] 50.0-59.9, adult; I10 Essential (primary) hypertension; M54.9 Dorsalgia, unspecified; E78.5 Hyperlipidemia, unspecified; K21.9 Gastro-esophageal reflux disease without esophagitis; M25.50 Pain in unspecified joint; R73.03 Prediabetes; R12 Heartburn
CPT/HCPCS: 74246; 76700

== ENCOUNTER 2023-05-23 09:00 | Outpatient (RCR) | payer MEDICARE, OTHER, SELFPAY ==
[2022-10-18 10:25] VITALS: BMI 53.1
--- NOTE | 2023-04-06 11:24 | HP.PTEVAL_ITS ---
Patient's Visit Information Visit Information Visit Information: ELEN ARMAS is a 67 year old F referred to Physical Therapy by Dr. Walter Mendez MD with a diagnosis of R SHLD PAIN LIKELY RC TENDONOPATHY. Date of Evaluation: 04/06/23 Physical Therapist: Suki Jeff PT, Cert MDT Visit Plan Frequency: 2-3x /Week Duration: 4-6 Weeks Plan: RIGHT NECK/SHLD US X 6. R UE ROM, STRETCHING AND STRENGTHENING WITH FOCUS ON SCAPULAR STABILIZATION. POSTURE CORRECTION/STRENGTHENING. HEP INSTRUCTION. Subjective Subjective: Work/Leisure: RETIRED Present symptoms: RIGHT NECK, SHLD AND CHEST PAIN. NO NUMBNESS OR TINGLING. R SHLD SWELLING. NO WEAKNESS. LIMITED ACTIVITES DUE TO PAIN. FULL MVMT BUT PAINFUL. Present since: ABOUT 2 WKS AGO Pain Scale: Worst - 10/10 Least - 1/10 Currently: 3/10 Commenced as a result of: NO APPARENT REASON Symptoms at onset: R SHLD ACHING AND SWELLING Worse: REACHING UP AND ESPECIALLY ACROSS BODY, LIFTING, PUSHING, PULLING. R HANDED. PUTTING DISHES IN CUPBOARD, PUTTING SHIRT ON, PULLING PANTS UP, DOING DISHES. CARRYING THINGS. LYING ON R SIDE. Better: ICE, VICODIN Disturbed sleep: YES - CAN NOT SLEEP ON R SIDE. Previous history/Previous treatment: NO PRIOR NECK OR SHLD PROBLEMS. This episode: NONE - VICODIN IS FOR KNEES FROM PAIN MGMT. 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 Unexplained weight loss: NO Imagin03/30/23 R SHLD X-RAY: IMPRESSION: No acute fracture or dislocation identified. Possible calcific tendinitis of the rotator cuff. PMH/Recent major surgery: OBESITY. HTN. ATRIAL FIB. RSL. SLEEP APNEA. Objective Objective: Sitting Posture/Standing Posture: FH. RSH'S. NO TORTICOLLIS. Active Correction of posture: NE Sensory deficit: JENNIFER UE LIGHT TOUCH SENSATION IS GROSSLY INTACT AND SYMMETRICAL ROM deficit: JENNIFER UE ROM IS GROSSLY WFL AND SYMMETRICAL BUT PATIENT C/O R SHLD PAIN WITH R SHLD ROM TESTING ALL PLANES. 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 PATIENT IS R HAND DOMINANT. JENNIFER UE STRENGTH IS GROSSLY 5/5 WITH MMT'ING EXCEPT R SHLD ER 4-/5 AND PAINFUL WITH TESTING. SPECIAL TEST: POSITIVE R ROTATOR CUFF TEST. Dural Signs: NEGATIVE JENNIFER UE'S. Cervical Mvmt Loss: Flex: NIL Pro: NIL Ext: MOD Ret: EVELIO RSB: MOD LSB: MOD R Rot: MOD L Rot: MIN Postural strength: FAIR Palpation: NO ACUTE R SHLD, SCAPULA, UPPER THORACIC, CERVICAL OR OCCIPUT TENDERNESS OR SWELLING NOTED. TREATMENT: ISSUED YTB AND INSTRUCTED PATIENT IN R SHLD YTB IR/ER 2X10 EACH ONCE A DAY IN PAINFREE ROM, TABLE WALK AWAYS FOR GENTLE PAINFREE R SHLD FLEXION ROM, AND POSTURE CORRECTION WITH USE OF LUMBAR SUPPORT IN SITTING. PATIENT DEMONST RATED/COMMUNICATED A GOOD UNDERSTANDING OF ALL INSTRUCTIONS AFTER GIVEN. Balance/Special Test Scores Quick DASH Score: 59.0900 Goals Goal 1:: DECREASE C/O R NECK AND SHLD PAIN Goal Time Frame: 4-6 Weeks Goal 2:: IMPROVE HEAD TURNING, REACHING, ADL, RECREATIONAL AND SLEEP FUNCTION Goal Time Frame: 4-6 Weeks Goal 3:: INSTRUCT IN PROPHYLAXIS Goal Time Frame: 4-6 Weeks Anticipated Interventions Patient/Client Instruction: Educate patient on: Condition, Plan of Care and Risk Factors For the Purpose of:: To improve self management Therapeutic Exercise to Include: Strength training, Postural training, Flexibilty training and Scapular Strength/Stabilization For the Purpose of:: To decrease pain, To improve muscle performance and motor function, To increase tolerance to activity/condition/position and To improve ability of physical actions for home/community/work/leisure Cryotherapy (ice pack, ice massage): Yes Thermo therapy (hot pack): Yes Ultrasound (thermal/non thermal): Yes For the Purpose of:: To decrease pain and To improve nutrient delivery to tissue Text: Thank you for the opportunity to evaluate your patient. For Medicare and Medicare HMO plans, please review the plan of care and approve it. It will need to be FAXED BACK to us at [phone] for Medicare purposes. For Medicare only, by signing this I certify the plan of care. Please let me know if there are questions or concerns regarding this plan of care. Physician Signature: Date:
--- NOTE | 2023-05-23 09:34 | HP.PTDCSUM_ITS ---
Discharge Summary D/C summary: It has been my pleasure to treat ELEN ARMAS referred by Dr. Walter Mendez MD, with the diagnosis of R SHLD PAIN LIKELY RC TENDONOPATHY for a total of 9 visit(s). Discharge Date: 05/23/23 Please see the following information for a summary of their discharge status. Subjective Subjective: PATIENT REPORTS HER R SHOULDER IS MUCH BETTER. SHE REPORTS SHE IS ABLE TO SLEEP ON HER R SIDE NOW AND HER ROM IS BETTER. SHE REPORTS THE SWELLIN G, INFLAMMATION AND PAIN IS DECREASING. I CAN DO MORE ACTIVITIES WITHOUT THE PAIN LIKE CARRYING THINGS, DISHES AND SLEEP ON THAT SIDE. SHE REPORTS SHE PLANS TO CONTINUE HER EX'S AT HOME AND IN THE POOL AND SHE THINKS IT WILL GET ALL THE WAY BETTER WITH TIME. Pain R NECK: Pain Intensity (Out of 10): 0 R SHLD: Pain Intensity (Out of 10): 0 Overall Improvement % Improvement: 85 Objective Objective/Function: PATIENT WAS SEEN TODAY FOR RE-ASSESSMENT OF PROGRESS TOWARD THE SET PT GOALS AND THE NEED FOR FURTHER PHYSICAL THERAPY VS READINESS FOR DISCHARGE. PATIENT HAS RESPONDED WELL TO PT. ALL GOALS HAVE BEEN MET. SHE IS INDEP WITH A HEP AND SHE IS APPROPRIATE FOR AND AGREEABLE TO DISCHARGE. UPON EXAM TODAY: ROM deficit: JENNIFER UE ROM IS GROSSLY WFL AND PATIENT DENIES PAIN WITH TESTING TODAY. 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 PATIENT IS R HAND DOMINANT. L KEY ACCOUNT DIRECTOR STRENGTH 45 LBS. JENNIFER UE STRENGTH IS GROSSLY 5/5 WITH MMT'ING INCLUDING R SHLD ER TODAY AND PATIENT REPORTS A TWINGE OF R SHLD PAIN WITH ER TESTING THAT QUICKLY GOES AWAY WHEN TESTING IS OVER. SPECIAL TEST: NEGATIVE R ROTATOR CUFF TEST. Dural Signs: NEGATIVE JENNIFER UE'S. Cervical Mvmt Loss: Flex: NIL Pro: NIL Ext: MOD Ret: EVELIO RSB: MOD LSB: MOD R Rot: MOD L Rot: MIN PATIENT DENIES PAIN WITH CERVICAL ROM TESTING ALL PLANES. Postural strength: FAIR Palpation: NO ACUTE R SHLD, SCAPULA, UPPER THORACIC, CERVICAL OR OCCIPUT TENDERNESS OR SWELLING NOTED TODAY. Goals Goal 1:: DECREASE C/O R NECK AND SHLD PAIN Goal Progress: Goal Met Goal 2:: IMPROVE HEAD TURNING, REACHING, ADL, RECREATIONAL AND SLEEP FUNCTION Goal Progress: Goal Met Goal 3:: INSTRUCT IN PROPHYLAXIS Goal Progress: Goal Met Plan Plan: D/C D/C Information d/c sentence: If there are questions or concerns regarding this patient's physical therapy, please feel free to call me at [phone]. Thank you for the referral of this patient. Sincerely, Suki Jeff, PT, Cert MDT Balance/Gait/Functional tests Balance/Special Test Scores Quick DASH Score: 27.2725 Improvement % Improvement: 85
== END 2023-05-23 19:00 | disposition home or self-care (01) ==
LOC: PT 09:00
PROVIDERS: PCP Family Medicine; Referring Provider Family Medicine; Visit Provider Family Medicine
DX: M25.511 Pain in right shoulder (principal)
CPT/HCPCS: 97035; 97110; 97140; 97162; 97164; 97530

== ENCOUNTER → 2023-05-30 | Outpatient (CLI) | payer MEDICARE, OTHER, SELFPAY ==
[2022-10-18 10:25] VITALS: BMI 53.1
[2023-05-30 17:28] LABS: Amphetamine Urine VISTA NEGATIVE (<1000 ng/mL); Barbiturate Urine VISTA NEGATIVE (< 200 ng/mL); Benzodiazepine Urine VISTA NEGATIVE (< 200 ng/mL); Cocaine Urine VISTA NEGATIVE (< 300 ng/mL); Ecstacy Urine VISTA NEGATIVE (< 500 ng/mL); Methadone Urine VISTA NEGATIVE (< 300 ng/mL); PCP Urine VISTA NEGATIVE (< 25 ng/mL); THC Urine VISTA NEGATIVE (< 50 ng/mL); Vista UDS pH Range 6
== END | disposition home or self-care (01) ==
LOC: LAB 15:33
PROVIDERS: PCP Family Medicine; Referring Provider Anesthesiology Pain Medicine; Visit Provider Anesthesiology Pain Medicine
DX: F11.20 Opioid dependence, uncomplicated (principal)
CPT/HCPCS: 80307

== ENCOUNTER → 2023-07-13 | Outpatient (CLI) | payer MEDICARE, OTHER, SELFPAY ==
[2022-10-18 10:25] VITALS: BMI 53.1
--- OUTSIDE RECORDS SUMMARY | 2023-07-13 08:33 | XMS RPT_ITS | CCD ---
Author Name Unknown Address [address] [place] [address] Organization [facility] Care Team Providers Care Gear Tester Name Role Phone Arthur Gamez MD Primary Care Provider Asad Moy MD Unavailable Abelardo Charlton Unavailable Deondre Meraz. Unavailable LICO MITCHELL Attending Unavailable ARTHUR GAMEZ Primary Care Unavailable CHANTAL BURGER Attending Unavailable ARTHUR GAMEZ Primary Care Unavailable ASAD MOY Attending Unavailable ARTHUR GAMEZ Referring Unavailable ARTHUR GAMEZ Primary Care Unavailable ARTHUR GAMEZ Primary Care Unavailable CHANTAL BURGER Attending Unavailable ARTHUR GAMEZ Primary Care Unavailable LICO MITCHELL Attending Unavailable ARTHUR GAMEZ Primary Care Unavailable ASAD MOY Attending Unavailable ARTHUR GAMEZ Primary Care Unavailable LICO MITCHELL Attending Unavailable ARTHUR GAMEZ Primary Care Unavailable Allergies Allergy Classification Reported Allergen(s) Allergy Type Date of Onset Reaction(s) Facility (19 sources) Metoprolol Drug Allergy 01-18-2023 Other [facility] (19 sources) Penicillins Propensity to adverse reactions 01-18-2023 Rash [facility] Medications Current Medications Medication Drug Class(es) Dates Sig (Normalized) Sig (Original) acetaminophen 325 mg / HYDROcodone bitartrate 5 mg oral tablet (4 sources) Opioid Agonist HYDROcodone-acet aminop hen ([place]) 5-325 MG tablet 1 tablet in the morning and 1 tablet in the evening. 0 Active Problems Active Problems Problem Classification Problem Date Documented Date Episodic/Chronic Biliary tract disease (3 sources) Biliary sludge; Translations: [Other specified diseases of biliary tract] Onset: 05-25-2023 05-25-2023 Chronic Diabetes mellitus without complication (8 sources) Prediabetes; Translations: [Prediabetes] 01-27-2023 Episodic Disorders of lipid metabolism (20 sources) Hyperlipidemia; Translations: [Hyperlipidemia, unspecified] Onset: 01-18-2023 01-18-2023 Chronic Diverticulosis and diverticulitis (7 sources) Diverticulosis of colon; Translations: [Diverticulosis of large intestine without perforation or abscess without bleeding] Onset: 03-14-2023 03-14-2023 Chronic Esophageal disorders (20 sources) Gastroesophageal reflux disease; Translations: [Gastro-esophageal reflux disease without esophagitis] Onset: 01-18-2023 01-18-2023 Chronic Essential hypertension (20 sources) Essential hypertension; Translations: [Essential (primary) hypertension] Onset: 01-18-2023 01-18-2023 Chronic Neoplasms of unspecified nature or uncertain behavior (6 sources) Monoclonal gammopathy of uncertain significance; Translations: [Monoclonal gammopathy] Onset: 03-21-2023 03-21-2023 Chronic Other non-traumatic joint disorders (8 sources) Joint pain; Translations: [Pain in unspecified joint] 01-27-2023 Episodic Other nutritional; endocrine; and metabolic disorders (10 sources) Body mass index 40+ - severely obese; Translations: [Morbid (severe) obesity due to excess calories] 01-18-2023 Chronic Other nutritional; endocrine; and metabolic disorders (6 sources) Morbid obesity; Translations: [Morbid (severe) obesity due to excess calories] 02-09-2023 Chronic Other nutritional; endocrine; and metabolic disorders (2 sources) Morbid (severe) obesity due to excess calories; Translations: [Morbid (severe) obesity due to excess calories (HCC)] Onset: 01-18-2023 Chronic Other nutritional; endocrine; and metabolic disorders (2 sources) Body mass index (BMI) 50.0-59.9, adult; Translations: [Body mass index (BMI) 50.0-59.9, adult (HCC)] Onset: 01-18-2023 Chronic Other nutritional; endocrine; and metabolic disorders (2 sources) Weight loss; Translations: [Weight Loss] Onset: 04-03-2023 Episodic Residual codes; unclassified (20 sources) Sleep apnea; Translations: [Sleep apnea, unspecified] Onset: 01-18-2023 01-18-2023 Chronic Residual codes; unclassified (2 sources) Obstructive sleep apnea syndrome; Translations: [Obstructive sleep apnea (adult) (pediatric)] 02-09-2023 Chronic Residual codes; unclassified (2 sources) Obstructive sleep apnea (adult) (pediatric); Translations: [Obstructive sleep apnea (adult) (pediatric)] Onset: 02-09-2023 Chronic Residual codes; unclassified (2 sources) Sleep apnea, unspecified; Translations: [Sleep apnea, unspecified] Onset: 01-18-2023 Chronic Past or Other Problems Problem Classification Problem Date Documented Da te Episodic/Chronic Esophageal disorders (7 sources) Esophagitis; Translations: [Esophagitis] Onset: 03-14-2023 03-14-2023 Episodic Other and unspecified benign neoplasm (7 sources) Tubular adenoma of colon; Translations: [Benign neoplasm of colon, unspecified] Onset: 03-14-2023 03-14-2023 Episodic Spondylosis; intervertebral disc disorders; other back problems (20 sources) Backache; Translations: [Dorsalgia, unspecified] Onset: 01-18-2023 01-18-2023 Episodic Results Test Name Value Interpretation Reference Range Facil ity Vital Signs Date Time Vital Sign Value Performing Clinician Faci lity 04-03-2023 09:31-0400 Body height 161.9 cm Lico Mitchell MD Work Phone: [email or web address] 04-03-2023 09:31-0400 Body mass index (BMI) [Ratio] 53.9 kg/m2 Lico Mitchell MD Work Phone: [email or web address] 04-03-2023 09:31-0400 Body weight 141.32 kg Lico Mitchell MD Work Phone: [employer] 04-03-2023 09:31-0400 Diastolic blood pressure 72 mm[Hg] Lico Mitchell MD Work Phone: [email or web address] 04-03-2023 09:31-0400 Heart rate 60 /min Lico Mitchell MD Work Phone: [employer] 04-03-2023 09:31-0400 Respiratory rate 16 /min Lico Mitchell MD Work Phone: [employer] 04-03-2023 09:31-0400 Systolic blood pressure 136 mm[Hg] Lico Mitchell MD Work Phone: [facility] [employer] 03-16-2023 10:56-0400 Body height 161.9 cm Lico Mitchell MD Work Phone: [facility] [employer] 03-16-2023 10:56-0400 Body mass index (BMI) [Ratio] 53.01 kg/m2 Lico Mitchell MD Work Phone: [facility] [employer] 03-16-2023 10:56-0400 Body weight 138.98 kg Lico Mitchell MD Work Phone: [facility] [employer] 03-16-2023 10:56-0400 Diastolic blood pressure 84 mm[Hg] Lico Mitchell MD Work Phone: [facility] [employer] 03-16-2023 10:56-0400 Heart rate 62 /min Lico Mitchell MD Work Phone: [facility] [employer] 03-16-2023 10:56-0400 Systolic blood pressure 146 mm[Hg] Lico Mitchell MD Work Phone: [facility] [employer] 02-09-2023 14:15-0400 Body height 161.9 cm Lico Mitchell MD Work Phone: [facility] [employer] 02-09-2023 14:15-0400 Body mass index (BMI) [Ratio] 54.63 kg/m2 Lico Mitchell MD Work Phone: [facility] [employer] 02-09-2023 14:15-0400 Body weight 143.25 kg Lico Mitchell MD Work Phone: [facility] [employer] 02-09-2023 14:15-0400 Diastolic blood pressure 83 mm[Hg] Lico Mitchell MD Work Phone: [facility] [employer] 02-09-2023 14:15-0400 Heart rate 70 /min Lico Mitchell MD Work Phone: [facility] [employer] 02-09-2023 14:15-0400 Systolic blood pressure 138 mm[Hg] Lico Mitchell MD Work Phone: [facility] 01-18-2023 14:22-0400 Body height 161.9 cm Asad Moy MD Work Phone: [facility] Encounters Encounter Date Encounter Type Care Provider Facility Start: 06-07-2023 End: 06-07-2023 ambulatory CHANTAL BURGER [facility] Start: 04-28-2023 End: 04-28-2023 ambulatory ARTHUR GAMEZ [facility] Start: 04-03-2023 End: 04-03-2023 ambulatory LICO MITCHELL [facility] Start: 04-03-2023 End: 04-03-2023 Office outpatient visit 25 minutes Lico Mitchell MD Work Phone: [facility] Procedures Date Procedure Procedure Detail Performing Clinician Start: 04-28-2023 Adult depression scr eening assessment Lico Mitchell MD Work Phone: Start: 02-21-2023 Colonoscopy Juana Brid le BULK LOADER - SECURITY DISPATCHER Work Phone: Start: 11-23-2022 Mammography Asad Moy MD Work Phone: Plan of Treatment Date Care Activity Detail Author Start: 02-21-2033 Screening for malign ant neoplasm of colon [facility] Start: 04-28-2024 Depression Screening Depression Scre ening [facility] Start: 11-24-2023 Screening for malign ant neoplasm of breast Mammogram [facility] Start: 04-03-2023 End: 04-03-2023 Patient encounter procedure 04/03/2023 9:40 AM EDT Office Visit [facility] [address] [place] [address] Lico Mitchell MD [address] [place] [address] [address] [place] [address] [facility] Start: 03-23-2023 End: 03-22-2024 Nicotine, Blood Nicotine, Blood Lab Routine Pre-operative laboratory examination Encounter for tobacco use screening Expected: 03/23/2023, Expires: 03/22/2024 [facility] Immunizations Immunization Date Immunization Notes Care Provider Fa cility 06-14-2022 influenza virus vacc ine, unspecified formulation Asad Moy MD Work Phone: [facility] [employer] Payers Date Payer Category Payer Unknown [employer] [place] MEDICARE SUPPLEMENT [id number] 2021-Present [address] [place] [address] Supplement [id number] 2021 Unknown [id number] 2019 Medicare MEDICARE MEDICAR E PART A AND B [id number] 2019-Present [address] [place] [address] Medicare [id number] 2019 Medicare [id number] Social History Date Type Detail Facility Start: 01-18-2023 Tobacco smoking stat [facility] Never smoked tobacco [facility] [employer] Start: 01-18-2023 Tobacco use and exposure Smokeless tobacco non-user [facility] [employer] Start: 01-18-2023 End: 03-13-2023 Alcohol intake Ex-drinker (finding) [facility] Start: 01-18-2023 End: 04-28-2023 History of Social function [facility] [employer] Work Phone: Start: 01-18-2023 End: 04-28-2023 Tobacco use panel [facility] [employer] Work Phone: Start: 1955 Sex Assigned At Not on file S [facility] Start: 01-08-2023 End: 04-03-2023 Exposure to SARS-CoV-2 (event) Not sure [facility] Clinical Notes 01-18-2023 to 06-12-2023 Telephone Encounter - Oscar Hernández LPN - 06/12/2023 10:16 AM ESTTelephone Encounter - Oscar Hernández LPN - 06/12/2023 10:16 AM ESTTelephone Encounter - Ocsar Hernández LPN - 06/07/2023 2:26 PM EST Note Date & Type Note Facility 06-12-2023 Telephone encounter Note Noted, thank you. Will prepare for scheduling. [facility] [employer] 06-12-2023 Miscellaneous Notes Noted, thank you. Will prepare for scheduling. Upon review of chart for Medicare, patient has met with Obesity Medicine Specialist, four months in succession. Patient has demonstrated behavior and nutrition patterns, as counseled. OK to proceed with surgery scheduling. Medicare patient appears complete. To for Medicare Review. Addended by: JUANA AUGUSTIN on: 03/22/2023 12:07 PM Modules accepted: Orders Signed. Addended by: OSCAR HERNÁNDEZ on: 03/22/2023 08:48 AM Modules accepted: Orders Papito please Spoke to pt about Ig G lambda that showed up on SIFE. This lab set was ordered by DR Meraz. We received as some of the lab we need are in the set. Pt states that this issue is managed by her [employer] in [place]. She will call his office and have recent office note faxed to me. Then I will update the medical history. 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 Dr Lambert, and Abelardo Charlton, respectively. Both are in [place]. I have faxed our clearance form to both offices. DR Lambert- [phone] Charlton - [phone] Pt reports she had an EGD by GI and then GES Monday -normal per pt. She will have these records faxed to me. Orders mailed Addended by: JUANA AUGUSTIN on: 01/27/2023 09:10 AM Modules accepted: Orders Noted. Signed. Addended by: DARIA FELIPE on: 01/27/2023 08:55 AM Modules accepted: Orders Orders pended, pre-op checklist scanned, EGD order sent to ALS PLAN Encounter Diagnoses Name Primary? Sleep apnea, unspecified type Primary hypertension Back pain, unspecified back location, unspecified back pain laterality, unspecified chronicity Hyperlipidemia, unspecified hyperlipidemia type Morbid obesity with BMI of 50.0-59.9, adult (HCC) I have recommended proceeding with the evaluation and work-up for the primary procedure as outlined below: PATIENT SUMMARY Mirlande Moy 67 y.o. female with Body mass index is 55.91 kg/m . SLEEVE GASTRECTOMY - aka SG Procedure DM[] HTN[x] KISHOR[x] GERD[x] HL[x] OA[x] TOB[] Date of Surgery: TBD NOTES AD Pt taking semiglutide. Here for eval for WLS to optimize bl TKA / Hx of FL Was an [employer]ER in [place] for more than 30 years and goes by Damion PCP: Arthur Gamez MD INITIAL TESTING RESULTS Labwork [x] CMP, TSH, Fasting Lipid Profile, Mg, Zinc, Vit B1 (whole blood), Vit B12, 25-OH Vit D, Fe, Ferritin, Folate Tobacco [x] Serum Nicotine / Cotinine [] Negative [] Positive EGD [x] Dx: [x] GERD [] Dyspepsia [] Other Pathology [x] H. pylori [] Negative [] Positive UGI [x] [] not ordered US Abdomen [x] [] not ordered KISHOR eval [x] [] On CPAP / Obtain settings Hematology [] [] Hypercoagulation panel Toxicology [] [] Urine drug screen [] EtOH screen Addtional [] [] Hgb A1c INITIAL CONSULTATIONS CLEARANCE / MANAGEMENT Psychology [x] Dr. Mcmullenitian [x] Cardiology [x] [] not ordered Pulmonary [] [x] not ordered Others [] []Heme/Onc []Psychiatry []Pain mgmt PSD [] Physician supervised diet: []None [x]3 mos []6 mos Preop diet [] Preop low calory diet: []None [x]1 wk []2 wks []Ext. FINAL PRE-OP TESTING RESULTS Labwork [x] [x]Pre-op CBC [x]BMP []Serum Nicotine / Cotinine EKG [x] CXR [x] POST-OP MEDICATIONS Ulcer Ppx [] Omeprazole 20 mg PO []QD []BID Gallstone Ppx [] Ursodiol 300 mg []BID DVT Ppx [] DVT prophylaxis per final preop visit estimated risk Estimated calculated risk: % Schedule final pre-operative office visit with surgeon, pre-operative education class, and pre-operative exercise class prior to date of surgery ATTESTATION I reviewed with the patient the details of the proposed operation. The risks benefits and options were discussed. Risks included but were not limited to bleeding, infection, damage to other surrounding organs, cardio-pulmonary complications related to anesthesia, conversion from laparoscopic to and open procedure, the need for reoperative or endoscopic therapy, the potential for prolonged mechanical ventilation, and . All questions were fully answered to the patient's satisfaction and they wish to proceed with surgical intervention. A total of over 45 minute visit was spent in face to face encounter, counseling the patient, discussing the surgical/perioperative plan, record review and documentation. The patient was seen and examined independently and relevant data including a full chart rreview was performed by myself. Initial New [facility] surgical patient Navigation & Financial Counseling Discussion Patient Communication: In office SURGEON: [] JZ [x] AD [] MP [] TB [] LM PROCEDURE: [] LRYGB [x] LSG [] TAURUS-S [] TAURUS [] UNDECIDED [] REV: SPECIFY: Confirmed pt wants to continue with surgical program/plan [x] YES [] NO (complete program withdrawal note/process) CO-MORBIDS: [] NONE [] DM []HTN [] KISHOR []GERD [] OTH: PRIVATE PAY: [] NO []YES DATE OF INITIAL BENEFITS VERIFICATION: TRANSFER FU: [] YES [] NO PRIMARY INSURANCE: Payor: MEDICARE / Plan: MEDICARE PART A AND B / Product Type: Medicare / BENEFIT ON PLAN: [] NO [] YES BENEFIT MAX: [] NO [] YES -- BENEFIT MAX: $ EMPLOYER: DIET AND EXERCISE (DE) REQUIREMENT PRIMARY [] NONE []3M [] 6M []9M [] Medicare 4 Months [] SPR (3M) []OTHER: SECONDARY INSURANCE: BENEFIT ON PLAN: [] NO [] YES BENEFIT MAX: [] NO [] YES -- BENEFIT MAX: $ AUTH REQUIRED FROM SECONDARY [] NO [] YES DIET AND EXERCISE REQUIREMENT SECONDARY [] NONE []3M [] 6M [] Medicare 4 months [] SPR (3M) []OTHER: ___ [x] Discussed with patient: Financial cost overview (document signed and pt given copy at new pt consult visit with surgeon), Initial appointments: Bariatric Nutrition Assessment (BNA) & Diet and Exercise (DE) Patient to look for yellow envelope in mail. This yellow envelope will contain orders for labs, testing and required clearances. Pt encouraged to complete early in program to prevent delays. Encourage blood work to be draw by 1st DE appointment. [x] Reviewed OOP cost, including: [] Optifast cost of approximately $130-140/week x weeks immediately prior to surgery - used to induce rapid weight loss which results in decrease in size of liver and therefore facilitates laparoscopically surgery approach. [x] Overview of inpatient admission benefits - estimated inpatient co-pays, deductibles and/or co-insurance - Estimated OOP costs form reviewed with patient, and copy given to patient at new pt visit. [x] Reviewed next steps with patient: 1) Scheduled at new pt surgeon visit: Desk Representative (RD) for a Nutrition Assessment (BNA) and Pre-operative Diet and Exercise (DE) appointment #1. [x] Patient reminded to arrive 15 minutes early for check in. Late arrivals may need to be rescheduled. 2) Schedule: Diet and Exercise Apt #2 only scheduled after initial BNA and DE completed, 3) Behavioral Health apt scheduled after DE started. Reviewed rational and goal of Behavioral Health appointments. 4) [x] Reinforced need to cancel any WMI appointments 48 hours in advance. Cautioned NS/Same day cancellations may result in delay in program or program completion hold. Noted: DE series needs to be a monthly series or insurance company may require repeat of the entire series. 5) [x] Smoker/tobacco products including vaping: reviewed need for cessation before surgery clearance and life long abstinence after surgery for best outcomes. Patient navigation to surgery: [x] Explained to patient that average time from initial consult to date of surgery can be 6-8 months. - Process can take longer if there are cancelled appointments, delays in testing and/or additional clearances that needs to be completed. - Reviewed importance of patient active engagement in making and keeping appointments to keep the process moving. - Reinforced need to cancel appointments at least 48 hours in advance. Reviewed that instances of No Shows and Same Day Appointment Cancellations may result in program/surgery delay or hold. [x] Patient advised of importance of having voicemail and MyChart for office communications and lab/testing results before and after surgery. documented in this encounter [facility] 06-07-2023 Telephone encounter Note Upon review of chart for Medicare, patient has met with Obesity Medicine Specialist, four months in succession. Patient has demonstrated behavior and nutrition patterns, as counseled. OK to proceed with surgery scheduling. [facility] 06-07-2023 Miscellaneous Notes Upon review of chart for Medicare, patient has met with Obesity Medicine Specialist, four months in succession. Patient has demonstrated behavior and nutrition patterns, as counseled. OK to proceed with surgery scheduling. Medicare patient appears complete. To for Medicare Review. Addended by: JUANA AUGUSTIN on: 03/22/2023 12:07 PM Modules accepted: Orders Signed. Addended by: OSCAR HERNÁNDEZ on: 03/22/2023 08:48 AM Modules accepted: Orders Papito please Spoke to pt about Ig G lambda that showed up on SIFE. This lab set was ordered by DR Meraz. We received as some of the lab we need are in the set. Pt states that this issue is managed by her [employer] in [place]. She will call his office and have recent office note faxed to me. Then I will update the medical history. 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 Dr Lambert, and Abelardo hCarlton, respectively. Both are in [place]. I have faxed our clearance form to both offices. DR Lambert- [phone] Charlton - [phone] Pt reports she had an EGD by GI and then GES Monday -normal per pt. She will have these records faxed to me. Orders mailed Addended by: JUANA AUGUSTIN on: 01/27/2023 09:10 AM Modules accepted: Orders Noted. Signed. Addended by: DARIA FELIPE on: 01/27/2023 08:55 AM Modules accepted: Orders Orders pended, pre-op checklist scanned, EGD order sent to ALS PLAN Encounter Diagnoses Name Primary? Sleep apnea, unspecified type Primary hypertension Back pain, unspecified back location, unspecified back pain laterality, unspecified chronicity Hyperlipidemia, unspecified hyperlipidemia type Morbid obesity with BMI of 50.0-59.9, adult (HCC) I have recommended proceeding with the evaluation and work-up for the primary procedure as outlined below: PATIENT SUMMARY Mirlande Moy 67 y.o. female with Body mass index is 55.91 kg/m . SLEEVE GASTRECTOMY - aka SG Procedure DM[] HTN[x] KISHOR[x] GERD[x] HL[x] OA[x] TOB[] Date of Surgery: TBD NOTES AD Pt taking semiglutide. Here for eval for WLS to optimize bl TKA / Hx of [place] Was an [employer] in [place] for more than 30 years and goes by Damion PCP: Arthur Gamez MD INITIAL TESTING RESULTS Labwork [x] CMP, TSH, Fasting Lipid Profile, Mg, Zinc, Vit B1 (whole blood), Vit B12, 25-OH Vit D, Fe, Ferritin, Folate Tobacco [x] Serum Nicotine / Cotinine [] Negative [] Positive EGD [x] Dx: [x] GERD [] Dyspepsia [] Other Pathology [x] H. pylori [] Negative [] Positive UGI [x] [] not ordered US Abdomen [x] [] not ordered KISHOR eval [x] [] On CPAP / Obtain settings Hematology [] [] Hypercoagulation panel Toxicology [] [] Urine drug screen [] EtOH screen Addtional [] [] Hgb A1c INITIAL CONSULTATIONS CLEARANCE / MANAGEMENT Psychology [x] Dietitilindsey [x] Cardiology [x] [] not ordered Pulmonary [] [x] not ordered Others [] []Heme/Onc []Psychiatry []Pain mgmt PSD [] Physician supervised diet: []None [x]3 mos []6 mos Preop diet [] Preop low calory diet: []None [x]1 wk []2 wks []Ext. FINAL PRE-OP TESTING RESULTS Labwork [x] [x]Pre-op CBC [x]BMP []Serum Nicotine / Cotinine EKG [x] CXR [x] POST-OP MEDICATIONS Ulcer Ppx [] Omeprazole 20 mg PO []QD []BID Gallstone Ppx [] Ursodiol 300 mg []BID DVT Ppx [] DVT prophylaxis per final preop visit estimated risk Estimated calculated risk: % Schedule final pre-operative office visit with surgeon, pre-operative education class, and pre-operative exercise class prior to date of surgery ATTESTATION I reviewed with the patient the details of the proposed operation. The risks benefits and options were discussed. Risks included but were not limited to bleeding, infection, damage to other surrounding organs, cardio-pulmonary complications related to anesthesia, conversion from laparoscopic to and open procedure, the need for reoperative or endoscopic therapy, the potential for prolonged mechanical ventilation, and . All questions were fully answered to the patient's satisfaction and they wish to proceed with surgical intervention. A total of over 45 minute visit was spent in face to face encounter, counseling the patient, discussing the surgical/perioperative plan, record review and documentation. The patient was seen and examined independently and relevant data including a full chart rreview was performed by myself. Initial New [facility] surgical patient Navigation & Financial Counseling Discussion Patient Communication: In office SURGEON: [] JZ [x] AD [] MP [] TB [] LM PROCEDURE: [] LRYGB [x] LSG [] TAURUS-S [] TAURUS [] UNDECIDED [] REV: SPECIFY: Confirmed pt wants to continue with surgical program/plan [x] YES [] NO (complete program withdrawal note/process) CO-MORBIDS: [] NONE [] DM []HTN [] KISHOR []GERD [] OTH: PRIVATE PAY: [] NO []YES DATE OF INITIAL BENEFITS VERIFICATION: TRANSFER FU: [] YES [] NO PRIMARY INSURANCE: Payor: MEDICARE / Plan: MEDICARE PART A AND B / Product Type: Medicare / BENEFIT ON PLAN: [] NO [] YES BENEFIT MAX: [] NO [] YES -- BENEFIT MAX: $ EMPLOYER: DIET AND EXERCISE (DE) REQUIREMENT PRIMARY [] NONE []3M [] 6M []9M [] Medicare 4 Months [] SPR (3M) []OTHER: SECONDARY INSURANCE: BENEFIT ON PLAN: [] NO [] YES BENEFIT MAX: [] NO [] YES -- BENEFIT MAX: $ AUTH REQUIRED FROM SECONDARY [] NO [] YES DIET AND EXERCISE REQUIREMENT SECONDARY [] NONE []3M [] 6M [] Medicare 4 months [] SPR (3M) []OTHER: ___ [x] Discussed with patient: Financial cost overview (document signed and pt given copy at new pt consult visit with surgeon), Initial appointments: Bariatric Nutrition Assessment (BNA) & Diet and Exercise (DE) Patient to look for yellow envelope in mail. This yellow envelope will contain orders for labs, testing and required clearances. Pt encouraged to complete early in program to prevent delays. Encourage blood work to be draw by 1st DE appointment. [x] Reviewed OOP cost, including: [] Optifast cost of approximately $130-140/week x weeks immediately prior to surgery - used to induce rapid weight loss which results in decrease in size of liver and therefore facilitates laparoscopically surgery approach. [x] Overview of inpatient admission benefits - estimated inpatient co-pays, deductibles and/or co-insurance - Estimated OOP costs form reviewed with patient, and copy given to patient at new pt visit. [x] Reviewed next steps with patient: 1) Scheduled at new pt surgeon visit: Desk Representative (RD) for a Nutrition Assessment (BNA) and Pre-operative Diet and Exercise (DE) appointment #1. [x] Patient reminded to arrive 15 minutes early for check in. Late arrivals may need to be rescheduled. 2) Schedule: Diet and Exercise Apt #2 only scheduled after initial BNA and DE completed, 3) Behavioral Health apt scheduled after DE started. Reviewed rational and goal of Behavioral Health appointments. 4) [x] Reinforced need to cancel any WMI appointments 48 hours in advance. Cautioned NS/Same day cancellations may result in delay in program or program completion hold. Noted: DE series needs to be a monthly series or insurance company may require repeat of the entire series. 5) [x] Smoker/tobacco products including vaping: reviewed need for cessation before surgery clearance and life long abstinence after surgery for best outcomes. Patient navigation to surgery: [x] Explained to patient that average time from initial consult to date of surgery can be 6-8 months. - Process can take longer if there are cancelled appointments, delays in testing and/or additional clearances that needs to be completed. - Reviewed importance of patient active engagement in making and keeping appointments to keep the process moving. - Reinforced need to cancel appointments at least 48 hours in advance. Reviewed that instances of No Shows and Same Day Appointment Cancellations may result in program/surgery delay or hold. [x] Patient advised of importance of having voicemail and MyChart for office communications and lab/testing results before and after surgery. documented in this encounter [facility] 06-07-2023 Telephone encounter Note Medicare patient appears complete. To LB for Medicare Review. [facility] 04-03-2023 Note BARIATRIC CARE [facility] SURGICAL WEIGHT LOSS MANAGEMENT PROGRAM PROGRESS NOTE FOLLOW UP Patient: Mirlande Beltrán Date of : 1955 Service Date: 04/03/2023 DE Visit number: 3 of 3 Pre Program Weight Metrics Date of Initial Consultation:@FLOWLAST([id number])@ Initial Weight: @FLOWLAST([id number])@ Initial BMI: @FLOWLAST([id number])@ [place] Body Weight: @FLOWLAST([id number])@ Excess Body Weight: @FLOWLAST([id number])@ Follow Up Weight Metrics Last Three Weights Including Today's Weight: Wt Readings from Last 3 Encounters: 04/03/23 (!) 311 lb 9 oz (141 kg) 03/16/23 (!) 306 lb 6.4 oz (139 kg) 02/09/23 (!) 315 lb 12.8 oz (143 kg) Today's BMI: BMI: 53.90 %EBWL: % EBWL: 2% Weight Chance Since Last Visit: Weight Change: 5.2 lbs Weight Change from Initial DE/SPR Weight: Total Weight Change: -4.2 lbs Patient has the following question(s): none Falls Risk Assessment Patient doestake medications which affect BP or mental status Patient does not have newly prescribed or changed dosage of medications within past 30 days which affect BP or mental status Patient has not fallen in the past 2 months Patient doesdemonstrate unsteady gait Patient uses the following ambulatory assistive devices: cane Patient states the presence of the following traits which increases risk of fall: Patient is not on home O2 Completed by: Monica Collins MA [facility] 04-03-2023 History of Presen t illness Narrative [facility]ATRIC CARE [facility] SURGICAL WEIGHT LOSS MANAGEMENT PROGRAM PROGRESS NOTE FOLLOW UP Patient: Mirlande Beltrán Date of : 1955 Service Date: 04/03/2023 DE Visit number: 3 of 3 Pre Program Weight Metrics Date of Initial Consultation:@FLOWLAST([id number])@ Initial Weight: @FLOWLAST([id number])@ Initial BMI: @FLOWLAST([id number])@ [place] Body Weight: @FLOWLAST([id number])@ Excess Body Weight: @FLOWLAST([id number])@ Follow Up Weight Metrics Last Three Weights Including Today's Weight: Wt Readings from Last 3 Encounters: 04/03/23 (!) 311 lb 9 oz (141 kg) 03/16/23 (!) 306 lb 6.4 oz (139 kg) 02/09/23 (!) 315 lb 12.8 oz (143 kg) Today's BMI: BMI: 53.90 %EBWL: % EBWL: 2% Weight Chance Since Last Visit: Weight Change: 5.2 lbs Weight Change from Initial DE/SPR Weight: Total Weight Change: -4.2 lbs Patient has the following question(s): none Falls Risk Assessment Patient doestake medications which affect BP or mental status Patient does not have newly prescribed or changed dosage of medications within past 30 days which affect BP or mental status Patient has not fallen in the past 2 months Patient doesdemonstrate unsteady gait Patient uses the following ambulatory assistive devices: cane Patient states the presence of the following traits which increases risk of fall: Patient is not on home O2 Completed by: Monica Collins MA [facility] - SURGICAL WEIGHT LOSS MANAGEMENT PROGRAM PHYSICIAN SUPERVISED DIET AND EXERCISE SURGICAL PREPARATORY REGIMEN - FOLLOW UP Patient is here today for follow up of their physician supervised diet and exercise in preparation for weight loss surgery Weight trend since last visit: weight up 5 pounds since last visit; lost 4 pounds since initial visit 02/09/23 This patient's excess weight is causing the following co-morbid conditions at this time: GERD, High Cholesterol, HTN, and KISHOR with or without CPAP The patient does not have any acute complaints. Physical Examination: BP 136/72 Pulse 60 Resp 16 Ht 5' 3.75 (1.619 m) Wt (!) 311 lb 9 oz (141 kg) BMI 53.90 kg/m Awake, alert, and oriented, no apparent distress. No respiratory distress, no conversational dyspnea Neurologic: Intact x 4 extremities, no focal deficits notes. No slurred speech Ambulatory without assistance. Assessment of Current Diet and Exercise Current Diet After dinner / night eating: carbohydrates (sugars) Breakfast: daily Carbohydrate with protein: yes Cravings: no significant cravings Sugar sweetened beverages: none Plan: --Obesity Class III, Elevated BMI Diet and exercise (DE) Following with bariatric surgery Advised patient that they must adhere to regular monthly visits to meet the requirements of the insurance company. Additionally, they must demonstrate meal plan adoption to show readiness for the changes that will be required following surgery. Diet recommendations provided to patient verbally and in the form of handouts; they understood and agreed with plan. -Semaglutide: has been off this, will be resuming per instructions of a nurse practitioner in [place], [place]. Ms. Beltrán states she will be restarted on the lowest dose. She has tolerated semaglutide well. Management per the [employer] [facility] in [place], [place]. --The following was discussed with Ms. Beltrán and her spouse: stop semaglutide 3 weeks before surgery. They understood and agreed -Discussed cessation of the following prior to and after surgery: carbonation, caffeine, NSAIDs, alcohol, tobacco. Patient understood and agreed. --HTN: stable, continue current meds per outpatient providers --Sleep apnea: compliant with CPAP --GERD: controlled --HLD: continue statin per outpatient providers Advised patient to continue to adhere to regular monthly visits to meet the requirements of the insurance company. Additionally, they must adopt meal plan recommendations to demonstrate readiness for the changes that will be required following surgery. Patient's eating behaviors does demonstrates adoption of eating plan recommendations. Physician diet recommendations provided to the patient. Plan of care discussed with patient, all questions answered, they agree with plan of care. Medical decision making: Patient's medical conditions place them at a moderate risk of complications, morbidity, and mortality. Patient: [] To return in one month for follow up [x] Has completed insurance required monthly diet and exercise series [] Needs to continue monthly visits until authorization/surgery date obtained. (Keshav) No orders of the defined types were placed in this encounter. Current Meds Patient's Medications New Prescriptions No medications on file Previous Medications CALCIUM CARBONATE (CALCIUM-CARB 600 PO) 600 mg before bedtime. CETIRIZINE HCL (ZYRTEC ALLERGY) 10 MG CAPSULE 10 mg Daily as needed. CHOLECALCIFEROL (VITAMIN D-3) 250 MCG (60622 UT) CAPSULE 10,000 Units before bedtime. DULOXETINE (CYMBALTA) [address] CAPSULE 60 mg at noon and 60 mg in the evening. ELIQUIS 5 MG TABLET Take 5 mg by mouth 2 times daily. FUROSEMIDE (LASIX) 40 MG TABLET 40 mg at noon and 40 mg in the evening. HYDROCODONE-ACETAMINOPHEN (NORCO) 5-325 MG TABLET 1 tablet in the morning and 1 tablet in the evening. LISINOPRIL 20 MG TABLET Take 20 mg by mouth daily. MULTIPLE VITAMINS-MINERALS (MULTIVITAMIN ADULT, MINERALS,) TABLET daily. RESPIRATORY THERAPY SUPPLIES (CARETOUCH CPAP & BIPAP HOSE) MISC Nightly. 17-11 CM ROPINIROLE (REQUIP) 3 MG TABLET 3 mg Nightly. ROSUVASTATIN (CRESTOR) 40 MG TABLET Take 40 mg by mouth before bedtime. SEMAGLUTIDE (RYBELSUS) 14 MG TABLET 1 (one) time per week. SOTALOL (BETAPACE) 80 MG TABLET 80 mg at noon and 80 mg in the evening. Modified Medications No medications on file Discontinued Medications No medications on file I reviewed all of the patient's medications and diagnoses listed in Epic. documented in this encounter [facility] 04-03-2023 History of Presen t illness Narrative [facility] SURGICAL WEIGHT LOSS MANAGEMENT PROGRAM PROGRESS NOTE FOLLOW UP Patient: Mirlande Beltrán Date of : 1955 Service Date: 04/03/2023 DE Visit number: 3 of 3 Pre Program Weight Metrics Date of Initial Consultation:@FLOWLAST([id number])@ Initial Weight: @FLOWLAST([id number])@ Initial BMI: @FLOWLAST([id number])@ [place] Body Weight: @FLOWLAST([id number])@ Excess Body Weight: @FLOWLAST([id number])@ Follow Up Weight Metrics Last Three Weights Including Today's Weight: Wt Readings from Last 3 Encounters: 04/03/23 (!) 311 lb 9 oz (141 kg) 03/16/23 (!) 306 lb 6.4 oz (139 kg) 02/09/23 (!) 315 lb 12.8 oz (143 kg) Today's BMI: BMI: 53.90 %EBWL: % EBWL: 2% Weight Chance Since Last Visit: Weight Change: 5.2 lbs Weight Change from Initial DE/SPR Weight: Total Weight Change: -4.2 lbs Patient has the following question(s): none Falls Risk Assessment Patient doestake medications which affect BP or mental status Patient does not have newly prescribed or changed dosage of medications within past 30 days which affect BP or mental status Patient has not fallen in the past 2 months Patient doesdemonstrate unsteady gait Patient uses the following ambulatory assistive devices: cane Patient states the presence of the following traits which increases risk of fall: Patient is not on home O2 Completed by: Monica Collins MA [facility] - SURGICAL WEIGHT LOSS MANAGEMENT PROGRAM PHYSICIAN SUPERVISED DIET AND EXERCISE SURGICAL PREPARATORY REGIMEN - FOLLOW UP Patient is here today for follow up of their physician supervised diet and exercise in preparation for weight loss surgery Weight trend since last visit: weight up 5 pounds since last visit; lost 4 pounds since initial visit 02/09/23 This patient's excess weight is causing the following co-morbid conditions at this time: GERD, High Cholesterol, HTN, and KISHOR with or without CPAP The patient does not have any acute complaints. Physical Examination: BP 136/72 Pulse 60 Resp 16 Ht 5' 3.75 (1.619 m) Wt (!) 311 lb 9 oz (141 kg) BMI 53.90 kg/m Awake, alert, and oriented, no apparent distress. No respiratory distress, no conversational dyspnea Neurologic: Intact x 4 extremities, no focal deficits notes. No slurred speech Ambulatory without assistance. Assessment of Current Diet and Exercise Current Diet After dinner / night eating: carbohydrates (sugars) Breakfast: daily Carbohydrate with protein: yes Cravings: no significant cravings Sugar sweetened beverages: none Plan: --Obesity Class III, Elevated BMI Diet and exercise (DE) Following with bariatric surgery Advised patient that they must adhere to regular monthly visits to meet the requirements of the insurance company. Additionally, they must demonstrate meal plan adoption to show readiness for the changes that will be required following surgery. Diet recommendations provided to patient verbally and in the form of handouts; they understood and agreed with plan. -Semaglutide: has been off this, will be resuming per instructions of a nurse practitioner in [place], [place]. Ms. Beltrán states she will be restarted on the lowest dose. She has tolerated semaglutide well. Management per the [facility] in [place], [place]. --The following was discussed with Ms. Beltrán and her spouse: stop semaglutide 3 weeks before surgery. They understood and agreed -Discussed cessation of the following prior to and after surgery: carbonation, caffeine, NSAIDs, alcohol, tobacco. Patient understood and agreed. --HTN: stable, continue current meds per outpatient providers --Sleep apnea: compliant with CPAP --GERD: controlled --HLD: continue statin per outpatient providers Advised patient to continue to adhere to regular monthly visits to meet the requirements of the insurance company. Additionally, they must adopt meal plan recommendations to demonstrate readiness for the changes that will be required following surgery. Patient's eating behaviors does demonstrates adoption of eating plan recommendations. Physician diet recommendations provided to the patient. Plan of care discussed with patient, all questions answered, they agree with plan of care. Medical decision making: Patient's medical conditions place them at a moderate risk of complications, morbidity, and mortality. Patient: [] To return in one month for follow up [x] Has completed insurance required monthly diet and exercise series [] Needs to continue monthly visits until authorization/surgery date obtained. (Keshav) No orders of the defined types were placed in this encounter. Current Meds Patient's Medications New Prescriptions No medications on file Previous Medications CALCIUM CARBONATE (CALCIUM-CARB 600 PO) 600 mg before bedtime. CETIRIZINE HCL (ZYRTEC ALLERGY) 10 MG CAPSULE 10 mg Daily as needed. CHOLECALCIFEROL (VITAMIN D-3) 250 MCG (20263 UT) CAPSULE 10,000 Units before bedtime. DULOXETINE (CYMBALTA) [address] CAPSULE 60 mg at noon and 60 mg in the evening. ELIQUIS 5 MG TABLET Take 5 mg by mouth 2 times daily. FUROSEMIDE (LASIX) 40 MG TABLET 40 mg at noon and 40 mg in the evening. HYDROCODONE-ACETAMINOPHEN (NORCO) 5-325 MG TABLET 1 tablet in the morning and 1 tablet in the evening. LISINOPRIL 20 MG TABLET Take 20 mg by mouth daily. MULTIPLE VITAMINS-MINERALS (MULTIVITAMIN ADULT, MINERALS,) TABLET daily. RESPIRATORY THERAPY SUPPLIES (CARETOUCH CPAP & BIPAP HOSE) MISC Nightly. 17-11 CM ROPINIROLE (REQUIP) 3 MG TABLET 3 mg Nightly. ROSUVASTATIN (CRESTOR) 40 MG TABLET Take 40 mg by mouth before bedtime. SEMAGLUTIDE (RYBELSUS) 14 MG TABLET 1 (one) time per week. SOTALOL (BETAPACE) 80 MG TABLET 80 mg at noon and 80 mg in the evening. Modified Medications No medications on file Discontinued Medications No medications on file I reviewed all of the patient's medications and diagnoses listed in Epic. documented in this encounter [facility] 03-22-2023 Note Addended by: JUANA AUGUSTIN on: 03/22/2023 12:07 PM Modules accepted: Orders [facility] 03-22-2023 Note Addended by: JUANA AUGUSTIN on: 03/22/2023 12:07 PM Modules accepted: Orders [facility] 03-22-2023 Note Addended by: JUANA AUGUSTIN on: 03/22/2023 12:07 PM Modules accepted: Orders [facility] 03-22-2023 Note Addended by: JUANA AUGUSTIN on: 03/22/2023 12:07 PM Modules accepted: Orders [facility] 03-22-2023 Miscellaneous Notes Addended by: JUANA AUGUSTIN on: 03/22/2023 12:07 PM Modules accepted: Orders Signed. Addended by: OSCAR HERNÁNDEZ on: 03/22/2023 08:48 AM Modules accepted: Orders Papito please Spoke to pt about Ig G lambda that showed up on SIFE. This lab set was ordered by DR Meraz. We received as some of the lab we need are in the set. Pt states that this issue is managed by her [employer] in [place]. She will call his office and have recent office note faxed to me. Then I will update the medical history. 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 Dr Lambert, and Abelardo Charlton, respectively. Both are in [place]. I have faxed our clearance form to both offices. DR Lambert- [phone] Charlton - [phone] Pt reports she had an EGD by GI and then GES Monday -normal per pt. She will have these records faxed to me. Orders mailed Addended by: JUANA AUGUSTIN on: 01/27/2023 09:10 AM Modules accepted: Orders Noted. Signed. Addended by: DARIA FELIPE on: 01/27/2023 08:55 AM Modules accepted: Orders Orders pended, pre-op checklist scanned, EGD order sent to ALS PLAN Encounter Diagnoses Name Primary? Sleep apnea, unspecified type Primary hypertension Back pain, unspecified back location, unspecified back pain laterality, unspecified chronicity Hyperlipidemia, unspecified hyperlipidemia type Morbid obesity with BMI of 50.0-59.9, adult (HCC) I have recommended proceeding with the evaluation and work-up for the primary procedure as outlined below: PATIENT SUMMARY Mirlande Moy 67 y.o. female with Body mass index is 55.91 kg/m . SLEEVE GASTRECTOMY - aka SG Procedure DM[] HTN[x] KISHOR[x] GERD[x] HL[x] OA[x] TOB[] Date of Surgery: TBD NOTES AD Pt taking semiglutide. Here for eval for WLS to optimize bl TKA / Hx of FL Was an [employer] in [place] for more than 30 years and goes by Damion PCP: Arthur Gamez MD INITIAL TESTING RESULTS Labwork [x] CMP, TSH, Fasting Lipid Profile, Mg, Zinc, Vit B1 (whole blood), Vit B12, 25-OH Vit D, Fe, Ferritin, Folate Tobacco [x] Serum Nicotine / Cotinine [] Negative [] Positive EGD [x] Dx: [x] GERD [] Dyspepsia [] Other Pathology [x] H. pylori [] Negative [] Positive UGI [x] [] not ordered US Abdomen [x] [] not ordered KISHOR eval [x] [] On CPAP / Obtain settings Hematology [] [] Hypercoagulation panel Toxicology [] [] Urine drug screen [] EtOH screen Addtional [] [] Hgb A1c INITIAL CONSULTATIONS CLEARANCE / MANAGEMENT Psychology [x] Dietitilindsey [x] Cardiology [x] [] not ordered Pulmonary [] [x] not ordered Others [] []Heme/Onc []Psychiatry []Pain mgmt PSD [] Physician supervised diet: []None [x]3 mos []6 mos Preop diet [] Preop low calory diet: []None [x]1 wk []2 wks []Ext. FINAL PRE-OP TESTING RESULTS Labwork [x] [x]Pre-op CBC [x]BMP []Serum Nicotine / Cotinine EKG [x] CXR [x] POST-OP MEDICATIONS Ulcer Ppx [] Omeprazole 20 mg PO []QD []BID Gallstone Ppx [] Ursodiol 300 mg []BID DVT Ppx [] DVT prophylaxis per final preop visit estimated risk Estimated calculated risk: % Schedule final pre-operative office visit with surgeon, pre-operative education class, and pre-operative exercise class prior to date of surgery ATTESTATION I reviewed with the patient the details of the proposed operation. The risks benefits and options were discussed. Risks included but were not limited to bleeding, infection, damage to other surrounding organs, cardio-pulmonary complications related to anesthesia, conversion from laparoscopic to and open procedure, the need for reoperative or endoscopic therapy, the potential for prolonged mechanical ventilation, and . All questions were fully answered to the patient's satisfaction and they wish to proceed with surgical intervention. A total of over 45 minute visit was spent in face to face encounter, counseling the patient, discussing the surgical/perioperative plan, record review and documentation. The patient was seen and examined independently and relevant data including a full chart rreview was performed by myself. Initial New [facility] surgical patient Navigation & Financial Counseling Discussion Patient Communication: In office SURGEON: [] JZ [x] AD [] MP [] TB [] LM PROCEDURE: [] LRYGB [x] LSG [] TAURUS-S [] TAURUS [] UNDECIDED [] REV: SPECIFY: Confirmed pt wants to continue with surgical program/plan [x] YES [] NO (complete program withdrawal note/process) CO-MORBIDS: [] NONE [] DM []HTN [] KISHOR []GERD [] OTH: PRIVATE PAY: [] NO []YES DATE OF INITIAL BENEFITS VERIFICATION: TRANSFER FU: [] YES [] NO PRIMARY INSURANCE: Payor: MEDICARE / Plan: MEDICARE PART A AND B / Product Type: Medicare / BENEFIT ON PLAN: [] NO [] YES BENEFIT MAX: [] NO [] YES -- BENEFIT MAX: $ EMPLOYER: DIET AND EXERCISE (DE) REQUIREMENT PRIMARY [] NONE []3M [] 6M []9M [] Medicare 4 Months [] SPR (3M) []OTHER: SECONDARY INSURANCE: BENEFIT ON PLAN: [] NO [] YES BENEFIT MAX: [] NO [] YES -- BENEFIT MAX: $ AUTH REQUIRED FROM SECONDARY [] NO [] YES DIET AND EXERCISE REQUIREMENT SECONDARY [] NONE []3M [] 6M [] Medicare 4 months [] SPR (3M) []OTHER: ___ [x] Discussed with patient: Financial cost overview (document signed and pt given copy at new pt consult visit with surgeon), Initial appointments: Bariatric Nutrition Assessment (BNA) & Diet and Exercise (DE) Patient to look for yellow envelope in mail. This yellow envelope will contain orders for labs, testing and required clearances. Pt encouraged to complete early in program to prevent delays. Encourage blood work to be draw by 1st DE appointment. [x] Reviewed OOP cost, including: [] Optifast cost of approximately $130-140/week x weeks immediately prior to surgery - used to induce rapid weight loss which results in decrease in size of liver and therefore facilitates laparoscopically surgery approach. [x] Overview of inpatient admission benefits - estimated inpatient co-pays, deductibles and/or co-insurance - Estimated OOP costs form reviewed with patient, and copy given to patient at new pt visit. [x] Reviewed next steps with patient: 1) Scheduled at new pt surgeon visit: Desk Representative (RD) for a Nutrition Assessment (BNA) and Pre-operative Diet and Exercise (DE) appointment #1. [x] Patient reminded to arrive 15 minutes early for check in. Late arrivals may need to be rescheduled. 2) Schedule: Diet and Exercise Apt #2 only scheduled after initial BNA and DE completed, 3) Behavioral Health apt scheduled after DE started. Reviewed rational and goal of Behavioral Health appointments. 4) [x] Reinforced need to cancel any WMI appointments 48 hours in advance. Cautioned NS/Same day cancellations may result in delay in program or program completion hold. Noted: DE series needs to be a monthly series or insurance company may require repeat of the entire series. 5) [x] Smoker/tobacco products including vaping: reviewed need for cessation before surgery clearance and life long abstinence after surgery for best outcomes. Patient navigation to surgery: [x] Explained to patient that average time from initial consult to date of surgery can be 6-8 months. - Process can take longer if there are cancelled appointments, delays in testing and/or additional clearances that needs to be completed. - Reviewed importance of patient active engagement in making and keeping appointments to keep the process moving. - Reinforced need to cancel appointments at least 48 hours in advance. Reviewed that instances of No Shows and Same Day Appointment Cancellations may result in program/surgery delay or hold. [x] Patient advised of importance of having voicemail and MyChart for office communications and lab/testing results before and after surgery. documented in this encounter [facility] 03-22-2023 Telephone encounter Note Signed. [facility] 03-22-2023 Note Addended by: OSCAR HERNÁNDEZ on: 03/22/2023 08:48 AM Modules accepted: Orders [facility] 03-22-2023 Note Addended by: OSCAR HERNÁNDEZ on: 03/22/2023 08:48 AM Modules accepted: Orders [facility] 03-22-2023 Note Addended by: OSCAR HERNÁNDEZ on: 03/22/2023 08:48 AM Modules accepted: Orders [facility] 03-22-2023 Note Addended by: OSCAR HERNÁNDEZ on: 03/22/2023 08:48 AM Modules accepted: Orders [facility] 03-22-2023 Telephone encounter Note Papito please [facility] 03-16-2023 Note [facility] SURGICAL WEIGHT LOSS MANAGEMENT PROGRAM PROGRESS NOTE FOLLOW UP Patient: Mirlande Beltrán Date of : 1955 Service Date: 03/16/2023 DE Visit number: 2 of 3 Pre Program Weight Metrics Date of Initial Consultation:@FLOWLAST([id number])@ Initial Weight: @FLOWLAST([id number])@ Initial BMI: @FLOWLAST([id number])@ [place] Body Weight: @FLOWLAST([id number])@ Excess Body Weight: @FLOWLAST([id number])@ Follow Up Weight Metrics Last Three Weights Including Today's Weight: Wt Readings from Last 3 Encounters: 03/16/23 (!) 306 lb 6.4 oz (139 kg) 02/09/23 (!) 315 lb 12.8 oz (143 kg) 01/18/23 (!) 323 lb 3.2 oz (147 kg) Today's BMI: BMI: 53.00 %EBWL: % EBWL: 5% Weight Chance Since Last Visit: Weight Change: -9.4 lbs Weight Change from Initial DE/SPR Weight: Total Weight Change: -9.4 lbs Patient has the following question(s): none Falls Risk Assessment Patient does take medications which affect BP or mental status Patient does not have newly prescribed or changed dosage of medications within past 30 days which affect BP or mental status Patient has not fallen in the past 2 months Patient does notdemonstrate unsteady gait Patient uses the following ambulatory assistive devices: cane Patient states the presence of the following traits which increases risk of fall: none Patient is not on home O2 Completed by: Ethel Montanez MA [facility] 03-16-2023 History of Presen t illness Narrative [facility] SURGICAL WEIGHT LOSS MANAGEMENT PROGRAM PROGRESS NOTE FOLLOW UP Patient: Mirlande Beltrán Date of : 1955 Service Date: 03/16/2023 DE Visit number: 2 of 3 Pre Program Weight Metrics Date of Initial Consultation:@FLOWLAST([id number])@ Initial Weight: @FLOWLAST([id number])@ Initial BMI: @FLOWLAST([id number])@ [place] Body Weight: @FLOWLAST([id number])@ Excess Body Weight: @FLOWLAST([id number])@ Follow Up Weight Metrics Last Three Weights Including Today's Weight: Wt Readings from Last 3 Encounters: 03/16/23 (!) 306 lb 6.4 oz (139 kg) 02/09/23 (!) 315 lb 12.8 oz (143 kg) 01/18/23 (!) 323 lb 3.2 oz (147 kg) Today's BMI: BMI: 53.00 %EBWL: % EBWL: 5% Weight Chance Since Last Visit: Weight Change: -9.4 lbs Weight Change from Initial DE/SPR Weight: Total Weight Change: -9.4 lbs Patient has the following question(s): none Falls Risk Assessment Patient does take medications which affect BP or mental status Patient does not have newly prescribed or changed dosage of medications within past 30 days which affect BP or mental status Patient has not fallen in the past 2 months Patient does notdemonstrate unsteady gait Patient uses the following ambulatory assistive devices: cane Patient states the presence of the following traits which increases risk of fall: none Patient is not on home O2 Completed by: Ethel Montanez MA [facility] SURGICAL WEIGHT LOSS MANAGEMENT PROGRAM PHYSICIAN SUPERVISED DIET AND EXERCISE SURGICAL PREPARATORY REGIMEN - FOLLOW UP Patient is here today for follow up of their physician supervised diet and exercise in preparation for weight loss surgery Weight trend since last visit: lost 9 pounds. This patient's excess weight is causing the following co-morbid conditions at this time: GERD, High Cholesterol, HTN, and KISHOR with or without CPAP The patient does not have any acute complaints. Physical Examination: BP (!) 146/84 Pulse 62 Ht 5' 3.75 (1.619 m) Wt (!) 306 lb 6.4 oz (139 kg) BMI 53.01 kg/m Awake, alert, and oriented, no apparent distress. No respiratory distress, no conversational dyspnea Neurologic: Intact x 4 extremities, no focal deficits notes. No slurred speech Ambulatory without assistance. Assessment of Current Diet and Exercise Current Diet After dinner / night eating: none Breakfast: daily Carbohydrate with protein: yes Cravings: controlled Sugar sweetened beverages: none Plan: --Obesity Class III, Elevated BMI Diet and exercise (DE) Following with bariatric surgery Advised patient that they must adhere to regular monthly visits to meet the requirements of the insurance company. Additionally, they must demonstrate meal plan adoption to show readiness for the changes that will be required following surgery. Diet recommendations provided to patient verbally and in the form of handouts; they understood and agreed with plan. -Semaglutide: tolerating well overall, occasional controlled nausea. No mention of constipation. -A nurse practitioner in [place], [place] manages the semaglutide -Per Ms. Beltrán: Semaglutide was held per a coning machine operator's recommendation (Dr. Soares), but now OK to resume (per Dr. Soares). Ms. Beltrán will follow up with Dr. Soares and the nurse practitioner in [place] regarding resumption dosing -Discussed cessation of the following prior to and after surgery: carbonation, caffeine, NSAIDs, alcohol, tobacco. Patient understood and agreed. --HTN: stable, continue current meds per outpatient providers --Sleep apnea: compliant with CPAP --GERD: controlled --HLD: continue statin per outpatient providers Plan of care discussed with patient and , all questions answered, they agree with plan of care. Medical decision making: Patient's medical conditions place them at a moderate risk of complications, morbidity, and mortality. Advised patient to continue to adhere to regular monthly visits to meet the requirements of the insurance company. Additionally, they must adopt meal plan recommendations to demonstrate readiness for the changes that will be required following surgery. Patient's eating behaviors does demonstrates adoption of eating plan recommendations. Physician diet recommendations provided to the patient. Plan of care discussed with patient, all questions answered, they agree with plan of care. Medical decision making: Patient's medical conditions place them at a moderate risk of complications, morbidity, and mortality. Patient: [x] To return in one month for follow up [] Has completed insurance required monthly diet and exercise series [] Needs to continue monthly visits until authorization/surgery date obtained. (Keshav) No orders of the defined types were placed in this encounter. Current Meds Patient's Medications New Prescriptions No medications on file Previous Medications CALCIUM CARBONATE (CALCIUM-CARB 600 PO) 600 mg before bedtime. CETIRIZINE HCL (ZYRTEC ALLERGY) 10 MG CAPSULE 10 mg Daily as needed. CHOLECALCIFEROL (VITAMIN D-3) 250 MCG (82137 UT) CAPSULE 10,000 Units before bedtime. DULOXETINE (CYMBALTA) [address] CAPSULE 60 mg at noon and 60 mg in the evening. ELIQUIS 5 MG TABLET Take 5 mg by mouth 2 times daily. FUROSEMIDE (LASIX) 40 MG TABLET 40 mg at noon and 40 mg in the evening. HYDROCODONE-ACETAMINOPHEN (NORCO) 5-325 MG TABLET 2 times daily. LISINOPRIL 20 MG TABLET Take 20 mg by mouth daily. MULTIPLE VITAMINS-MINERALS (MULTIVITAMIN ADULT, MINERALS,) TABLET daily. RESPIRATORY THERAPY SUPPLIES (CARETOUCH CPAP & BIPAP HOSE) MISC Nightly. 17-11 CM ROPINIROLE (REQUIP) 3 MG TABLET 3 mg Nightly. ROSUVASTATIN (CRESTOR) 40 MG TABLET Take 40 mg by mouth before bedtime. SEMAGLUTIDE (RYBELSUS) 14 MG TABLET 1 (one) time per week. SOTALOL (BETAPACE) 80 MG TABLET 80 mg at noon and 80 mg in the evening. Modified Medications No medications on file Discontinued Medications No medications on file I reviewed all of the patient's medications and diagnoses listed in Epic. documented in this encounter [facility] 03-16-2023 History of Presen t illness Narrative [facility] SURGICAL WEIGHT LOSS MANAGEMENT PROGRAM PROGRESS NOTE FOLLOW UP Patient: Mirlande Beltrán Date of : 1955 Service Date: 03/16/2023 DE Visit number: 2 of 3 Pre Program Weight Metrics Date of Initial Consultation:@FLOWLAST([id number])@ Initial Weight: @FLOWLAST([id number])@ Initial BMI: @FLOWLAST([id number])@ [place] Body Weight: @FLOWLAST([id number])@ Excess Body Weight: @FLOWLAST([id number])@ Follow Up Weight Metrics Last Three Weights Including Today's Weight: Wt Readings from Last 3 Encounters: 03/16/23 (!) 306 lb 6.4 oz (139 kg) 02/09/23 (!) 315 lb 12.8 oz (143 kg) 01/18/23 (!) 323 lb 3.2 oz (147 kg) Today's BMI: BMI: 53.00 %EBWL: % EBWL: 5% Weight Chance Since Last Visit: Weight Change: -9.4 lbs Weight Change from Initial DE/SPR Weight: Total Weight Change: -9.4 lbs Patient has the following question(s): none Falls Risk Assessment Patient does take medications which affect BP or mental status Patient does not have newly prescribed or changed dosage of medications within past 30 days which affect BP or mental status Patient has not fallen in the past 2 months Patient does notdemonstrate unsteady gait Patient uses the following ambulatory assistive devices: cane Patient states the presence of the following traits which increases risk of fall: none Patient is not on home O2 Completed by: Ethel Montanez MA [facility] - SURGICAL WEIGHT LOSS MANAGEMENT PROGRAM PHYSICIAN SUPERVISED DIET AND EXERCISE SURGICAL PREPARATORY REGIMEN - FOLLOW UP Patient is here today for follow up of their physician supervised diet and exercise in preparation for weight loss surgery Weight trend since last visit: lost 9 pounds. This patient's excess weight is causing the following co-morbid conditions at this time: GERD, High Cholesterol, HTN, and KISHOR with or without CPAP The patient does not have any acute complaints. Physical Examination: BP (!) 146/84 Pulse 62 Ht 5' 3.75 (1.619 m) Wt (!) 306 lb 6.4 oz (139 kg) BMI 53.01 kg/m Awake, alert, and oriented, no apparent distress. No respiratory distress, no conversational dyspnea Neurologic: Intact x 4 extremities, no focal deficits notes. No slurred speech Ambulatory without assistance. Assessment of Current Diet and Exercise Current Diet After dinner / night eating: none Breakfast: daily Carbohydrate with protein: yes Cravings: controlled Sugar sweetened beverages: none Plan: --Obesity Class III, Elevated BMI Diet and exercise (DE) Following with bariatric surgery Advised patient that they must adhere to regular monthly visits to meet the requirements of the insurance company. Additionally, they must demonstrate meal plan adoption to show readiness for the changes that will be required following surgery. Diet recommendations provided to patient verbally and in the form of handouts; they understood and agreed with plan. -Semaglutide: tolerating well overall, occasional controlled nausea. No mention of constipation. -A nurse practitioner in [place], [place] manages the semaglutide -Per Ms. Beltrán: Semaglutide was held per a coning machine operator's recommendation (Dr. Soares), but now OK to resume (per Dr. Soares). Ms. Beltrán will follow up with Dr. Soares and the nurse practitioner in [place] regarding resumption dosing -Discussed cessation of the following prior to and after surgery: carbonation, caffeine, NSAIDs, alcohol, tobacco. Patient understood and agreed. --HTN: stable, continue current meds per outpatient providers --Sleep apnea: compliant with CPAP --GERD: controlled --HLD: continue statin per outpatient providers Plan of care discussed with patient and , all questions answered, they agree with plan of care. Medical decision making: Patient's medical conditions place them at a moderate risk of complications, morbidity, and mortality. Advised patient to continue to adhere to regular monthly visits to meet the requirements of the insurance company. Additionally, they must adopt meal plan recommendations to demonstrate readiness for the changes that will be required following surgery. Patient's eating behaviors does demonstrates adoption of eating plan recommendations. Physician diet recommendations provided to the patient. Plan of care discussed with patient, all questions answered, they agree with plan of care. Medical decision making: Patient's medical conditions place them at a moderate risk of complications, morbidity, and mortality. Patient: [x] To return in one month for follow up [] Has completed insurance required monthly diet and exercise series [] Needs to continue monthly visits until authorization/surgery date obtained. (Keshav) No orders of the defined types were placed in this encounter. Current Meds Patient's Medications New Prescriptions No medications on file Previous Medications CALCIUM CARBONATE (CALCIUM-CARB 600 PO) 600 mg before bedtime. CETIRIZINE HCL (ZYRTEC ALLERGY) 10 MG CAPSULE 10 mg Daily as needed. CHOLECALCIFEROL (VITAMIN D-3) 250 MCG (54952 UT) CAPSULE 10,000 Units before bedtime. DULOXETINE (CYMBALTA) [address] CAPSULE 60 mg at noon and 60 mg in the evening. ELIQUIS 5 MG TABLET Take 5 mg by mouth 2 times daily. FUROSEMIDE (LASIX) 40 MG TABLET 40 mg at noon and 40 mg in the evening. HYDROCODONE-ACETAMINOPHEN (NORCO) 5-325 MG TABLET 2 times daily. LISINOPRIL 20 MG TABLET Take 20 mg by mouth daily. MULTIPLE VITAMINS-MINERALS (MULTIVITAMIN ADULT, MINERALS,) TABLET daily. RESPIRATORY THERAPY SUPPLIES (CARETOUCH CPAP & BIPAP HOSE) MIS Nightly. 17-11 CM ROPINIROLE (REQUIP) 3 MG TABLET 3 mg Nightly. ROSUVASTATIN (CRESTOR) 40 MG TABLET Take 40 mg by mouth before bedtime. SEMAGLUTIDE (RYBELSUS) 14 MG TABLET 1 (one) time per week. SOTALOL (BETAPACE) 80 MG TABLET 80 mg at noon and 80 mg in the evening. Modified Medications No medications on file Discontinued Medications No medications on file I reviewed all of the patient's medications and diagnoses listed in Epic. documented in this encounter [facility] 03-13-2023 Telephone encounter Note Spoke to pt about Ig G lambda that showed up on SIFE. This lab set was ordered by DR Meraz. We received as some of the lab we need are in the set. Pt states that this issue is managed by her [employer] in [place]. She will call his office and have recent office note faxed to me. Then I will update the medical history. 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 Dr Lambert, and Abelardo Charlton, respectively. Both are in [place]. I have faxed our clearance form to both offices. DR Lambert- [phone] Charlton - [phone] Pt reports she had an EGD by GI and then GES Monday -normal per pt. She will have these records faxed to me. [facility] 03-13-2023 Miscellaneous Notes Spoke to pt about Ig G lambda that showed up on SIFE. This lab set was ordered by DR Meraz. We received as some of the lab we need are in the set. Pt states that this issue is managed by her [employer] in [place]. She will call his office and have recent office note faxed to me. Then I will update the medical history. 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 Dr Lambert, and Abelardo Charlton, respectively. Both are in [place]. I have faxed our clearance form to both offices. DR Lambert- [phone] Charlton - [phone] Pt reports she had an EGD by GI and then GES Monday -normal per pt. She will have these records faxed to me. Orders mailed Addended by: JUANA AUGUSTIN on: 01/27/2023 09:10 AM Modules accepted: Orders Noted. Signed. Addended by: DARIA FELIPE on: 01/27/2023 08:55 AM Modules accepted: Orders Orders pended, pre-op checklist scanned, EGD order sent to ALS PLAN Encounter Diagnoses Name Primary? Sleep apnea, unspecified type Primary hypertension Back pain, unspecified back location, unspecified back pain laterality, unspecified chronicity Hyperlipidemia, unspecified hyperlipidemia type Morbid obesity with BMI of 50.0-59.9, adult (HCC) I have recommended proceeding with the evaluation and work-up for the primary procedure as outlined below: PATIENT SUMMARY Mirlande Moy 67 y.o. female with Body mass index is 55.91 kg/m . SLEEVE GASTRECTOMY - aka SG Procedure DM[] HTN[x] KISHOR[x] GERD[x] HL[x] OA[x] TOB[] Date of Surgery: TBD NOTES AD Pt taking semiglutide. Here for eval for WLS to optimize bl TKA / Hx of FL Was an [employer] in [place] for more than 30 years and goes by Damion PCP: Arthur Gamez MD INITIAL TESTING RESULTS Labwork [x] CMP, TSH, Fasting Lipid Profile, Mg, Zinc, Vit B1 (whole blood), Vit B12, 25-OH Vit D, Fe, Ferritin, Folate Tobacco [x] Serum Nicotine / Cotinine [] Negative [] Positive EGD [x] Dx: [x] GERD [] Dyspepsia [] Other Pathology [x] H. pylori [] Negative [] Positive UGI [x] [] not ordered US Abdomen [x] [] not ordered KISHOR eval [x] [] On CPAP / Obtain settings Hematology [] [] Hypercoagulation panel Toxicology [] [] Urine drug screen [] EtOH screen Addtional [] [] Hgb A1c INITIAL CONSULTATIONS CLEARANCE / MANAGEMENT Psychology [x] Dr. Mcmullenitilindsey [x] Cardiology [x] [] not ordered Pulmonary [] [x] not ordered Others [] []Heme/Onc []Psychiatry []Pain mgmt PSD [] Physician supervised diet: []None [x]3 mos []6 mos Preop diet [] Preop low calory diet: []None [x]1 wk []2 wks []Ext. FINAL PRE-OP TESTING RESULTS Labwork [x] [x]Pre-op CBC [x]BMP []Serum Nicotine / Cotinine EKG [x] CXR [x] POST-OP MEDICATIONS Ulcer Ppx [] Omeprazole 20 mg PO []QD []BID Gallstone Ppx [] Ursodiol 300 mg []BID DVT Ppx [] DVT prophylaxis per final preop visit estimated risk Estimated calculated risk: % Schedule final pre-operative office visit with surgeon, pre-operative education class, and pre-operative exercise class prior to date of surgery ATTESTATION I reviewed with the patient the details of the proposed operation. The risks benefits and options were discussed. Risks included but were not limited to bleeding, infection, damage to other surrounding organs, cardio-pulmonary complications related to anesthesia, conversion from laparoscopic to and open procedure, the need for reoperative or endoscopic therapy, the potential for prolonged mechanical ventilation, and . All questions were fully answered to the patient's satisfaction and they wish to proceed with surgical intervention. A total of over 45 minute visit was spent in face to face encounter, counseling the patient, discussing the surgical/perioperative plan, record review and documentation. The patient was seen and examined independently and relevant data including a full chart rreview was performed by myself. Initial New [facility] surgical patient Navigation & Financial Counseling Discussion Patient Communication: In office SURGEON: [] JCaesar [x] BELLE [] MP [] TB [] LM PROCEDURE: [] LRYGB [x] LSG [] TAURUS-S [] TAURUS [] UNDECIDED [] REV: SPECIFY: Confirmed pt wants to continue with surgical program/plan [x] YES [] NO (complete program withdrawal note/process) CO-MORBIDS: [] NONE [] DM []HTN [] KISHOR []GERD [] OTH: PRIVATE PAY: [] NO []YES DATE OF INITIAL BENEFITS VERIFICATION: TRANSFER FU: [] YES [] NO PRIMARY INSURANCE: Payor: MEDICARE / Plan: MEDICARE PART A AND B / Product Type: Medicare / BENEFIT ON PLAN: [] NO [] YES BENEFIT MAX: [] NO [] YES -- BENEFIT MAX: $ EMPLOYER: DIET AND EXERCISE (DE) REQUIREMENT PRIMARY [] NONE []3M [] 6M []9M [] Medicare 4 Months [] SPR (3M) []OTHER: SECONDARY INSURANCE: BENEFIT ON PLAN: [] NO [] YES BENEFIT MAX: [] NO [] YES -- BENEFIT MAX: $ AUTH REQUIRED FROM SECONDARY [] NO [] YES DIET AND EXERCISE REQUIREMENT SECONDARY [] NONE []3M [] 6M [] Medicare 4 months [] SPR (3M) []OTHER: ___ [x] Discussed with patient: Financial cost overview (document signed and pt given copy at new pt consult visit with surgeon), Initial appointments: Bariatric Nutrition Assessment (BNA) & Diet and Exercise (DE) Patient to look for yellow envelope in mail. This yellow envelope will contain orders for labs, testing and required clearances. Pt encouraged to complete early in program to prevent delays. Encourage blood work to be draw by 1st DE appointment. [x] Reviewed OOP cost, including: [] Optifast cost of approximately $130-140/week x weeks immediately prior to surgery - used to induce rapid weight loss which results in decrease in size of liver and therefore facilitates laparoscopically surgery approach. [x] Overview of inpatient admission benefits - estimated inpatient co-pays, deductibles and/or co-insurance - Estimated OOP costs form reviewed with patient, and copy given to patient at new pt visit. [x] Reviewed next steps with patient: 1) Scheduled at new pt surgeon visit: Desk Representative (RD) for a Nutrition Assessment (BNA) and Pre-operative Diet and Exercise (DE) appointment #1. [x] Patient reminded to arrive 15 minutes early for check in. Late arrivals may need to be rescheduled. 2) Schedule: Diet and Exercise Apt #2 only scheduled after initial BNA and DE completed, 3) Behavioral Health apt scheduled after DE started. Reviewed rational and goal of Behavioral Health appointments. 4) [x] Reinforced need to cancel any WMI appointments 48 hours in advance. Cautioned NS/Same day cancellations may result in delay in program or program completion hold. Noted: DE series needs to be a monthly series or insurance company may require repeat of the entire series. 5) [x] Smoker/tobacco products including vaping: reviewed need for cessation before surgery clearance and life long abstinence after surgery for best outcomes. Patient navigation to surgery: [x] Explained to patient that average time from initial consult to date of surgery can be 6-8 months. - Process can take longer if there are cancelled appointments, delays in testing and/or additional clearances that needs to be completed. - Reviewed importance of patient active engagement in making and keeping appointments to keep the process moving. - Reinforced need to cancel appointments at least 48 hours in advance. Reviewed that instances of No Shows and Same Day Appointment Cancellations may result in program/surgery delay or hold. [x] Patient advised of importance of having voicemail and MyChart for office communications and lab/testing results before and after surgery. documented in this encounter [facility] 02-10-2023 History of Presen t illness Narrative [facility] BARIATRIC NUTRITION ASSESSMENT / DIET & EXERCISE SURGICAL WEIGHT LOSS MANAGEMENT PROGRAM Date: 02/10/23 Patient Name: Mirlande Beltrán Date of : 1955 Type of Assessment: [x] Surgical Patient - Pre-op Initial Assessment Weight Metrics: Height: 5'3.75 not obtained today; pt had 1st D/E yesterday-metrics taken from 02/09/2023 Weight: 315 lb 12.8 oz BMI: 54.63 Surgeon: Dr. Moy Surgical Procedure: [x] Sleeve Gastrectomy Preop Diet: 1 wks Medical History: Past Medical History: Diagnosis Date Back pain GERD (gastroesophageal reflux disease) History of heart attack Hyperlipidemia Hypertension Joint pain Sleep apnea Snoring SOB (shortness of breath) on exertion Current Medications: has a current medication list which includes the following prescription(s): calcium carbonate, zyrtec allergy, cholecalciferol, duloxetine, eliquis, furosemide, lisinopril, multivitamin adult (minerals), caretouch cpap & bipap hose, ropinirole, rosuvastatin, semaglutide, and sotalol. Weight History Patient has been considering weight loss surgery for a couple months Primary reason(s) for weight loss to support moving forward with bilateral knee replacement; immobility; reduce pain Number of years over weight > 10 PREVIOUS WEIGHT LOSS ATTEMPTS Method When Amount lost Amount regained Most successful Why Weight [facility] 2011 50 lb all Why Weight [facility] 2021 45 lb all Post Weight Loss Surgery- Type: Patient's current diet quality, relative to the Past weight loss surgery diet is: [x] N/A CURRENT MEAL PLANNING Self Spouse Significant Other Meals planned by X X Food shopping done by X X Meals cooked by X X EXERCISE/CURRENT ACTIVITY Water aerobics 3x/wk CURRENT EATING HABITS/ADDITIONAL INFORMATION 24 Hour Recall completed: Yes Breakfast: 1/4 cup fiber one cereal+ 1 cup special k cereal (44 g carb) +1 cup fruit; 1 cup; 1 cup almond milk Snack: none Lunch: salad + 1 cup low fat cottage cheese; light spanish; grooved Cheezits; or tomato with 1 cup cottage cheese; or pbj on lower Kcal bread; Crystal Light Snack: fruit/Oikos yogurt (not daily) Dinner: 1 cup measured bayron hair pasta w/low sodium pasta sauce + grated cheese; no bread; burger on slider bun; taco; low Kcal bread grilled cheese; steak, potato, veggie (portion) Snack: none Drinks: water and Crystal Light in water ~ 64 oz/day; no coffee/tea; no juice; occasional diet sprite d/t nausea from Semaglutide; no etoh SUPPORT SYSTEM A. Family knowledgeable about/supportive of plans for weight loss surgery: Yes B. Patient understands that they must have someone in their home 06/02 for the first week following surgery, or that they must be able to stay with someone for the first week Yes C. Co-workers knowledgeable about/supportive of plans for weight loss surgery: N/A KNOWLEDGE AND EDUCATION ASSESSMENT AND PLAN Patient's level of knowledge regarding the changes that will have to be made in their diet following weight loss surgery is: [x] Excellent - patient is well informed. Current eating practices that will require change with surgery: Increase protein at breakfast RECOMMENDATIONS AND PLAN [x] Educational Materials Provided [x]Strategies for Eating handout given to and discussed with patient [x] Patient cleared for weight loss surgery Patient able to state major diet changes that need to be made following surgery Patient states/demonstrates readiness to make necessary diet changes Diagnoses: HTN Note: Pt and spouse present for initial BNA. Pt has completed 1 of 3 D/E. Per diet recall, pt does not skip meals. Pt includes protein at meals; less at breakfast. Pt portion controls. Pt drinks at least 64 oz/day water. Exercise noted above. Current labs N/A-will monitor. Reviewed BNA packet and rationale for post-op bariatric diet protocol. Pt agreeable to, and aided in developing, the goals as noted below. Pt cleared by nutrition for WLS. Pt informed at time of visit. Goals: Decrease carb at breakfast (currently about 5-6 carb choices at [facility]) and increase protein-ideas discussed per pt preferences Materials Provided: BNA packet Grocery List Non-Starchy Vs Starchy Vegetable list Support Group Handout Follow up: PRN Pt encouraged to call/MyChart with questions. Bariatric Nutrition Assessment completed by: Monica Tolentino RD documented in this encounter [facility] 02-09-2023 History of Presen t illness Narrative [facility] SURGICAL WEIGHT LOSS MANAGEMENT PROGRAM SUPERVISED DIET AND EXERCISE ROOMING: INITIAL VISIT Patient: Mirlande Beltrná Date of : 1955 Service Date: 02/09/2023 Patient is here today to initiate physician-supervised diet and exercise as required by their insurance company prior to approval for weight loss surgery. This patient is spouse for the evaluation today This is visit 1 of 6 required visits. Weight Metrics: (From Surgical Wet Loss Management) Today's Vital Signs: Non-Surgical Initial Eval Consult Date: 02/09/23 Initial Height: 5' 3.75 (161.9 cm) Initial Weight: 315 lb 12.8 oz (143 kg) [place] Body Weight: 128 lb (58.1 kg) Initial BMI: 54.63 Initial Body Fat %: 65.56 EBW: 187 lb (From NonSurgical Weight Loss Tracker) Falls Risk Assessment Patient does take medications which affect BP or mental status Patient does not have newly prescribed or changed dosage of medications within past 30 days which affect BP or mental status Patient has not fallen in the past 2 months Patient uses the following ambulatory assistive devices: cane Patient states the presence of the following traits which increases risk of fall: knee pain Patient is noton home O2 Completed by: Ethel Montanez MA [facility] SURGICAL WEIGHT LOSS MANAGEMENT PROGRAM PHYSICIAN SUPERVISED DIET AND EXERCISE SURGICAL PREPARATORY REGIMEN PROGRESS NOTE INITIAL EVALUATION Patient: Mirlande Beltrán Service Date: 02/09/2023 Date of : 1955 Navigation Plan: Patient History/Assessment Summary: The patient is a pleasant 67 y.o. year old female, who stands Height: 5' 3.75 (161.9 cm) tall with a weight of Weight: (!) 315 lb 12.8 oz (143 kg) pounds, resulting in a BMI of Body mass index is 54.63 kg/m . kg/m2. They have been overweight for years, have tried and failed multiple previous diet attempts, and is now in the process of undergoing evaluation for surgical treatment of their severe obesity and GERD, High Cholesterol, HTN, and KISHOR with or without CPAP. They are here today to initiate monthly physician supervised diet and exercise as part of their surgical preparatory regimen. The patient does not have any acute complaints. History: Past Medical History: Diagnosis Date Back pain GERD (gastroesophageal reflux disease) History of heart attack Hyperlipidemia Hypertension Joint pain Sleep apnea Snoring SOB (shortness of breath) on exertion Past Surgical History: Procedure Laterality Date APPENDECTOMY 1970 W CYST REMOVAL CARDIAC CATHETERIZATION 2020 CARDIOVERSION 2022 CYST REMOVAL Right 1970 W APPENDECTOMY Family History Problem Relation Name Age of Onset Cancer Mother Cancer Father Stroke Father Heart disease Father Hypertension Father Hypertension Brother Heart disease Brother Diabetes Brother Obesity Brother Diabetes Paternal Grandmother Cancer Maternal Grandmother Social History Tobacco Use Smoking status: Never Smokeless tobacco: Never Substance Use Topics Alcohol use: Not Currently Current Meds Patient's Medications New Prescriptions No medications on file Previous Medications CALCIUM CARBONATE (CALCIUM-CARB 600 PO) 600 mg before bedtime. CETIRIZINE HCL (ZYRTEC ALLERGY) 10 MG CAPSULE 10 mg Daily as needed. CHOLECALCIFEROL (VITAMIN D-3) 250 MCG (00609 UT) CAPSULE 10,000 Units before bedtime. DULOXETINE (CYMBALTA) [address] CAPSULE 30 mg at noon and 30 mg in the evening. ELIQUIS 5 MG TABLET Take 5 mg by mouth 2 times daily. FUROSEMIDE (LASIX) 40 MG TABLET 40 mg at noon and 40 mg in the evening. LISINOPRIL 20 MG TABLET Take 20 mg by mouth daily. MULTIPLE VITAMINS-MINERALS (MULTIVITAMIN ADULT, MINERALS,) TABLET daily. RESPIRATORY THERAPY SUPPLIES (CARETOUCH CPAP & BIPAP HOSE) MISC Nightly. 17-11 CM ROPINIROLE (REQUIP) 3 MG TABLET 3 mg Nightly. ROSUVASTATIN (CRESTOR) 40 MG TABLET Take 40 mg by mouth before bedtime. SEMAGLUTIDE (RYBELSUS) 14 MG TABLET 1 (one) time per week. SOTALOL (BETAPACE) 80 MG TABLET 80 mg at noon and 80 mg in the evening. Modified Medications No medications on file Discontinued Medications No medications on file This patient's excess weight is causing the following co-morbid conditions at this time:GERD, High Cholesterol, HTN, and KISHOR with or without CPAP Initial Diet & Exercise/SPR Visit Weight Metrics: Date of Initial Diet & Exercise Visit: Consult Date: 02/09/23 Initial Weight: Initial Weight: 315 lb 12.8 oz (143 kg) Initial BMI: Initial BMI: 54.63 [place] Body Weight: [place] Body Weight: 128 lb (58.1 kg) Excess Body Weight: EBW: 187 lb Physical Examination: BP 138/83 Pulse 70 Ht 5' 3.75 (1.619 m) Wt (!) 315 lb 12.8 oz (143 kg) BMI 54.63 kg/m General: Alert and oriented x 4, obese, no distress. normocephalic and atraumatic Cardiac: Regular rate and rhythm without evidence of murmur Respiratory: Clear to auscultation bilaterally; No evidence of respiratory distress Musculoskeletal: No edema of extremities, ambulatory without assistance Neurological: Intact x 4 extremities, nonfocal neurologic exam, no focal deficits notes. Current Diet Dinner 7:30pm No sugar sweetened beverages Reviewed PAST DIET HISTORY FORM and CURRENT DIET HISTORY FORM with patient (located in [employer]) I reviewed all of the patient's medications and diagnoses listed in Epic. Comfort foods include:sweets Current Activity Water aerobics 3 x / week Current Eating Behaviors This patients demonstrates the following behaviors as they relate to eating: no night time eating Eats approximately 3 times per day. Plan: --Obesity Class III, Elevated BMI Diet and exercise (DE) Following with bariatric surgery Advised patient that they must adhere to regular monthly visits to meet the requirements of the insurance company. Additionally, they must demonstrate meal plan adoption to show readiness for the changes that will be required following surgery. Diet recommendations provided to patient verbally and in the form of handouts; they understood and agreed with plan. -Semaglutide started 6 weeks ago; has had intermittent nausea, belching, constipation (resolved with stool softeners). Symptoms are controlled; no current symptoms. A nurse practitioner in [place], [place] manages the semaglutide -3 pound weight loss per week (18 total) since starting semaglutide --HTN: stable, continue current meds per outpatient providers, Discussed blood pressure could decrease with weight loss, potentially resulting in dizziness/lightheadedness (which can result in fall/injury). Patient understood. Adequate hydration and follow up with PCP for abnormal blood pressures and possible medication adjustments discussed - patient understood and agreed. --Discussed blood glucose could decrease with weight loss. Patient understood. They are aware of symptoms of hypoglycemia and treatment of hypoglycemia. Patient will follow up with their outpatient providers --Sleep apnea: compliant with CPAP --GERD: controlled --HLD: continue statin per outpatient providers Plan of care discussed with patient and , all questions answered, they agree with plan of care. Medical decision making: Patient's medical conditions place them at a moderate risk of complications, morbidity, and mortality. Patient to return for follow up in one month. No orders of the defined types were placed in this encounter. Lico Mitchell MD 02/09/2023 2:25 PM documented in this encounter [facility] 02-02-2023 Telephone encounter Note Orders mailed [facility] 02-02-2023 Miscellaneous Notes Orders mailed Addended by: JUANA AUGUSTIN on: 01/27/2023 09:10 AM Modules accepted: Orders Noted. Signed. Addended by: DARIA FELIPE on: 01/27/2023 08:55 AM Modules accepted: Orders Orders pended, pre-op checklist scanned, EGD order sent to ALS PLAN Encounter Diagnoses Name Primary? Sleep apnea, unspecified type Primary hypertension Back pain, unspecified back location, unspecified back pain laterality, unspecified chronicity Hyperlipidemia, unspecified hyperlipidemia type Morbid obesity with BMI of 50.0-59.9, adult (HCC) I have recommended proceeding with the evaluation and work-up for the primary procedure as outlined below: PATIENT SUMMARY Mirlande Myo 67 y.o. female with Body mass index is 55.91 kg/m . SLEEVE GASTRECTOMY - aka SG Procedure DM[] HTN[x] KISHOR[x] GERD[x] HL[x] OA[x] TOB[] Date of Surgery: TBD NOTES AD Pt taking semiglutide. Here for eval for WLS to optimize bl TKA / Hx of [place] Was an [employer] in [place] for more than 30 years and goes by Damion PCP: Arthur Gamez MD INITIAL TESTING RESULTS Labwork [x] CMP, TSH, Fasting Lipid Profile, Mg, Zinc, Vit B1 (whole blood), Vit B12, 25-OH Vit D, Fe, Ferritin, Folate Tobacco [x] Serum Nicotine / Cotinine [] Negative [] Positive EGD [x] Dx: [x] GERD [] Dyspepsia [] Other Pathology [x] H. pylori [] Negative [] Positive UGI [x] [] not ordered US Abdomen [x] [] not ordered KISHOR eval [x] [] On CPAP / Obtain settings Hematology [] [] Hypercoagulation panel Toxicology [] [] Urine drug screen [] EtOH screen Addtional [] [] Hgb A1c INITIAL CONSULTATIONS CLEARANCE / MANAGEMENT Psychology [x] Dr. Mcmullenitilindsey [x] Cardiology [x] [] not ordered Pulmonary [] [x] not ordered Others [] []Heme/Onc []Psychiatry []Pain mgmt PSD [] Physician supervised diet: []None [x]3 mos []6 mos Preop diet [] Preop low calory diet: []None [x]1 wk []2 wks []Ext. FINAL PRE-OP TESTING RESULTS Labwork [x] [x]Pre-op CBC [x]BMP []Serum Nicotine / Cotinine EKG [x] CXR [x] POST-OP MEDICATIONS Ulcer Ppx [] Omeprazole 20 mg PO []QD []BID Gallstone Ppx [] Ursodiol 300 mg []BID DVT Ppx [] DVT prophylaxis per final preop visit estimated risk Estimated calculated risk: % Schedule final pre-operative office visit with surgeon, pre-operative education class, and pre-operative exercise class prior to date of surgery ATTESTATION I reviewed with the patient the details of the proposed operation. The risks benefits and options were discussed. Risks included but were not limited to bleeding, infection, damage to other surrounding organs, cardio-pulmonary complications related to anesthesia, conversion from laparoscopic to and open procedure, the need for reoperative or endoscopic therapy, the potential for prolonged mechanical ventilation, and . All questions were fully answered to the patient's satisfaction and they wish to proceed with surgical intervention. A total of over 45 minute visit was spent in face to face encounter, counseling the patient, discussing the surgical/perioperative plan, record review and documentation. The patient was seen and examined independently and relevant data including a full chart rreview was performed by myself. Initial New [facility] surgical patient Navigation & Financial Counseling Discussion Patient Communication: In office SURGEON: [] JZ [x] AD [] MP [] TB [] LM PROCEDURE: [] LRYGB [x] LSG [] TAURUS-S [] TAURUS [] UNDECIDED [] REV: SPECIFY: Confirmed pt wants to continue with surgical program/plan [x] YES [] NO (complete program withdrawal note/process) CO-MORBIDS: [] NONE [] DM []HTN [] KISHOR []GERD [] OTH: PRIVATE PAY: [] NO []YES DATE OF INITIAL BENEFITS VERIFICATION: TRANSFER FU: [] YES [] NO PRIMARY INSURANCE: Payor: MEDICARE / Plan: MEDICARE PART A AND B / Product Type: Medicare / BENEFIT ON PLAN: [] NO [] YES BENEFIT MAX: [] NO [] YES -- BENEFIT MAX: $ EMPLOYER: DIET AND EXERCISE (DE) REQUIREMENT PRIMARY [] NONE []3M [] 6M []9M [] Medicare 4 Months [] SPR (3M) []OTHER: SECONDARY INSURANCE: BENEFIT ON PLAN: [] NO [] YES BENEFIT MAX: [] NO [] YES -- BENEFIT MAX: $ AUTH REQUIRED FROM SECONDARY [] NO [] YES DIET AND EXERCISE REQUIREMENT SECONDARY [] NONE []3M [] 6M [] Medicare 4 months [] SPR (3M) []OTHER: ___ [x] Discussed with patient: Financial cost overview (document signed and pt given copy at new pt consult visit with surgeon), Initial appointments: Bariatric Nutrition Assessment (BNA) & Diet and Exercise (DE) Patient to look for yellow envelope in mail. This yellow envelope will contain orders for labs, testing and required clearances. Pt encouraged to complete early in program to prevent delays. Encourage blood work to be draw by 1st DE appointment. [x] Reviewed OOP cost, including: [] Optifast cost of approximately $130-140/week x weeks immediately prior to surgery - used to induce rapid weight loss which results in decrease in size of liver and therefore facilitates laparoscopically surgery approach. [x] Overview of inpatient admission benefits - estimated inpatient co-pays, deductibles and/or co-insurance - Estimated OOP costs form reviewed with patient, and copy given to patient at new pt visit. [x] Reviewed next steps with patient: 1) Scheduled at new pt surgeon visit: Desk Representative (RD) for a Nutrition Assessment (BNA) and Pre-operative Diet and Exercise (DE) appointment #1. [x] Patient reminded to arrive 15 minutes early for check in. Late arrivals may need to be rescheduled. 2) Schedule: Diet and Exercise Apt #2 only scheduled after initial BNA and DE completed, 3) Behavioral Health apt scheduled after DE started. Reviewed rational and goal of Behavioral Health appointments. 4) [x] Reinforced need to cancel any WMI appointments 48 hours in advance. Cautioned NS/Same day cancellations may result in delay in program or program completion hold. Noted: DE series needs to be a monthly series or insurance company may require repeat of the entire series. 5) [x] Smoker/tobacco products including vaping: reviewed need for cessation before surgery clearance and life long abstinence after surgery for best outcomes. Patient navigation to surgery: [x] Explained to patient that average time from initial consult to date of surgery can be 6-8 months. - Process can take longer if there are cancelled appointments, delays in testing and/or additional clearances that needs to be completed. - Reviewed importance of patient active engagement in making and keeping appointments to keep the process moving. - Reinforced need to cancel appointments at least 48 hours in advance. Reviewed that instances of No Shows and Same Day Appointment Cancellations may result in program/surgery delay or hold. [x] Patient advised of importance of having voicemail and MyChart for office communications and lab/testing results before and after surgery. documented in this encounter [facility] 01-27-2023 Note Addended by: JUANA AUGUSTIN on: 01/27/2023 09:10 AM Modules accepted: Orders [facility] 01-27-2023 Note Addended by: JUANA AUGUSTIN on: 01/27/2023 09:10 AM Modules accepted: Orders [facility] 01-27-2023 Note Addended by: JUANA AUGUSTIN on: 01/27/2023 09:10 AM Modules accepted: Orders [facility] 01-27-2023 Note Addended by: JUANA AUGUSTIN on: 01/27/2023 09:10 AM Modules accepted: Orders [facility] 01-27-2023 Note Addended by: JUANA AUGUSTIN on: 01/27/2023 09:10 AM Modules accepted: Orders [facility] 01-27-2023 Note Addended by: JUANA AUGUSTIN on: 01/27/2023 09:10 AM Modules accepted: Orders [facility] 01-27-2023 Note Addended by: JUANA AUGUSTIN on: 01/27/2023 09:10 AM Modules accepted: Orders [facility] 01-27-2023 Note Addended by: JUANA AUGUSTIN on: 01/27/2023 09:10 AM Modules accepted: Orders [facility] 01-27-2023 Telephone encounter Note Noted. Signed. [facility] 01-27-2023 Miscellaneous Notes Addended by: JUANA AUGUSTIN on: 01/27/2023 09:10 AM Modules accepted: Orders Noted. Signed. Addended by: DARIA FELIPE on: 01/27/2023 08:55 AM Modules accepted: Orders Orders pended, pre-op checklist scanned, EGD order sent to ALS PLAN Encounter Diagnoses Name Primary? Sleep apnea, unspecified type Primary hypertension Back pain, unspecified back location, unspecified back pain laterality, unspecified chronicity Hyperlipidemia, unspecified hyperlipidemia type Morbid obesity with BMI of 50.0-59.9, adult (HCC) I have recommended proceeding with the evaluation and work-up for the primary procedure as outlined below: PATIENT SUMMARY Mirlande Moy 67 y.o. female with Body mass index is 55.91 kg/m . SLEEVE GASTRECTOMY - aka SG Procedure DM[] HTN[x] KISHOR[x] GERD[x] HL[x] OA[x] TOB[] Date of Surgery: TBD NOTES AD Pt taking semiglutide. Here for eval for WLS to optimize bl TKA / Hx of [place] Was an [employer] in [place] for more than 30 years and goes by Damion PCP: Arthur Gamez MD INITIAL TESTING RESULTS Labwork [x] CMP, TSH, Fasting Lipid Profile, Mg, Zinc, Vit B1 (whole blood), Vit B12, 25-OH Vit D, Fe, Ferritin, Folate Tobacco [x] Serum Nicotine / Cotinine [] Negative [] Positive EGD [x] Dx: [x] GERD [] Dyspepsia [] Other Pathology [x] H. pylori [] Negative [] Positive UGI [x] [] not ordered US Abdomen [x] [] not ordered KISHOR eval [x] [] On CPAP / Obtain settings Hematology [] [] Hypercoagulation panel Toxicology [] [] Urine drug screen [] EtOH screen Addtional [] [] Hgb A1c INITIAL CONSULTATIONS CLEARANCE / MANAGEMENT Psychology [x] Dr. Ann [x] Cardiology [x] [] not ordered Pulmonary [] [x] not ordered Others [] []Heme/Onc []Psychiatry []Pain mgmt PSD [] Physician supervised diet: []None [x]3 mos []6 mos Preop diet [] Preop low calory diet: []None [x]1 wk []2 wks []Ext. FINAL PRE-OP TESTING RESULTS Labwork [x] [x]Pre-op CBC [x]BMP []Serum Nicotine / Cotinine EKG [x] CXR [x] POST-OP MEDICATIONS Ulcer Ppx [] Omeprazole 20 mg PO []QD []BID Gallstone Ppx [] Ursodiol 300 mg []BID DVT Ppx [] DVT prophylaxis per final preop visit estimated risk Estimated calculated risk: % Schedule final pre-operative office visit with surgeon, pre-operative education class, and pre-operative exercise class prior to date of surgery ATTESTATION I reviewed with the patient the details of the proposed operation. The risks benefits and options were discussed. Risks included but were not limited to bleeding, infection, damage to other surrounding organs, cardio-pulmonary complications related to anesthesia, conversion from laparoscopic to and open procedure, the need for reoperative or endoscopic therapy, the potential for prolonged mechanical ventilation, and . All questions were fully answered to the patient's satisfaction and they wish to proceed with surgical intervention. A total of over 45 minute visit was spent in face to face encounter, counseling the patient, discussing the surgical/perioperative plan, record review and documentation. The patient was seen and examined independently and relevant data including a full chart rreview was performed by myself. Initial New [facility] surgical patient Navigation & Financial Counseling Discussion Patient Communication: In office SURGEON: [] JCaesar [x] AD [] MP [] TB [] LM PROCEDURE: [] LRYGB [x] LSG [] TAURUS-S [] TAURUS [] UNDECIDED [] REV: SPECIFY: Confirmed pt wants to continue with surgical program/plan [x] YES [] NO (complete program withdrawal note/process) CO-MORBIDS: [] NONE [] DM []HTN [] KISHOR []GERD [] OTH: PRIVATE PAY: [] NO []YES DATE OF INITIAL BENEFITS VERIFICATION: TRANSFER FU: [] YES [] NO PRIMARY INSURANCE: Payor: MEDICARE / Plan: MEDICARE PART A AND B / Product Type: Medicare / BENEFIT ON PLAN: [] NO [] YES BENEFIT MAX: [] NO [] YES -- BENEFIT MAX: $ EMPLOYER: DIET AND EXERCISE (DE) REQUIREMENT PRIMARY [] NONE []3M [] 6M []9M [] Medicare 4 Months [] SPR (3M) []OTHER: SECONDARY INSURANCE: BENEFIT ON PLAN: [] NO [] YES BENEFIT MAX: [] NO [] YES -- BENEFIT MAX: $ AUTH REQUIRED FROM SECONDARY [] NO [] YES DIET AND EXERCISE REQUIREMENT SECONDARY [] NONE []3M [] 6M [] Medicare 4 months [] SPR (3M) []OTHER: ___ [x] Discussed with patient: Financial cost overview (document signed and pt given copy at new pt consult visit with surgeon), Initial appointments: Bariatric Nutrition Assessment (BNA) & Diet and Exercise (DE) Patient to look for yellow envelope in mail. This yellow envelope will contain orders for labs, testing and required clearances. Pt encouraged to complete early in program to prevent delays. Encourage blood work to be draw by 1st DE appointment. [x] Reviewed OOP cost, including: [] Optifast cost of approximately $130-140/week x weeks immediately prior to surgery - used to induce rapid weight loss which results in decrease in size of liver and therefore facilitates laparoscopically surgery approach. [x] Overview of inpatient admission benefits - estimated inpatient co-pays, deductibles and/or co-insurance - Estimated OOP costs form reviewed with patient, and copy given to patient at new pt visit. [x] Reviewed next steps with patient: 1) Scheduled at new pt surgeon visit: Desk Representative (RD) for a Nutrition Assessment (BNA) and Pre-operative Diet and Exercise (DE) appointment #1. [x] Patient reminded to arrive 15 minutes early for check in. Late arrivals may need to be rescheduled. 2) Schedule: Diet and Exercise Apt #2 only scheduled after initial BNA and DE completed, 3) Behavioral Health apt scheduled after DE started. Reviewed rational and goal of Behavioral Health appointments. 4) [x] Reinforced need to cancel any WMI appointments 48 hours in advance. Cautioned NS/Same day cancellations may result in delay in program or program completion hold. Noted: DE series needs to be a monthly series or insurance company may require repeat of the entire series. 5) [x] Smoker/tobacco products including vaping: reviewed need for cessation before surgery clearance and life long abstinence after surgery for best outcomes. Patient navigation to surgery: [x] Explained to patient that average time from initial consult to date of surgery can be 6-8 months. - Process can take longer if there are cancelled appointments, delays in testing and/or additional clearances that needs to be completed. - Reviewed importance of patient active engagement in making and keeping appointments to keep the process moving. - Reinforced need to cancel appointments at least 48 hours in advance. Reviewed that instances of No Shows and Same Day Appointment Cancellations may result in program/surgery delay or hold. [x] Patient advised of importance of having voicemail and MyChart for office communications and lab/testing results before and after surgery. documented in this encounter [facility] 01-27-2023 Note Addended by: DARIA FELIPE on: 01/27/2023 08:55 AM Modules accepted: Orders [facility] 01-27-2023 Note Addended by: DARIA FELIPE on: 01/27/2023 08:55 AM Modules accepted: Orders [facility] 01-27-2023 Note Addended by: DARIA FELIPE on: 01/27/2023 08:55 AM Modules accepted: Orders [facility] 01-27-2023 Note Addended by: DARIA FELIPE on: 01/27/2023 08:55 AM Modules accepted: Orders [facility] 01-27-2023 Note Addended by: DARIA FELIPE on: 01/27/2023 08:55 AM Modules accepted: Orders [facility] 01-27-2023 Note Addended by: DARIA FELIPE on: 01/27/2023 08:55 AM Modules accepted: Orders [facility] 01-27-2023 Note Addended by: DARIA FELIPE on: 01/27/2023 08:55 AM Modules accepted: Orders [facility] 01-27-2023 Note Addended by: DARIA FELIPE on: 01/27/2023 08:55 AM Modules accepted: Orders T [facility] 01-27-2023 Telephone encounter Note Orders pended, pre-op checklist scanned, EGD order sent to [facility] [employer] 01-27-2023 Telephone encounter Note PLAN Encounter Diagnoses Name Primary? Sleep apnea, unspecified type Primary hypertension Back pain, unspecified back location, unspecified back pain laterality, unspecified chronicity Hyperlipidemia, unspecified hyperlipidemia type Morbid obesity with BMI of 50.0-59.9, adult (HCC) I have recommended proceeding with the evaluation and work-up for the primary procedure as outlined below: PATIENT SUMMARY Mirlande Moy 67 y.o. female with Body mass index is 55.91 kg/m . SLEEVE GASTRECTOMY - aka SG Procedure DM[] HTN[x] KISHOR[x] GERD[x] HL[x] OA[x] TOB[] Date of Surgery: TBD NOTES AD Pt taking semiglutide. Here for eval for WLS to optimize bl TKA / Hx of [place] Was an [employer] in [place] for more than 30 years and goes by Damion PCP: Arthur Gamez MD INITIAL TESTING RESULTS Labwork [x] CMP, TSH, Fasting Lipid Profile, Mg, Zinc, Vit B1 (whole blood), Vit B12, 25-OH Vit D, Fe, Ferritin, Folate Tobacco [x] Serum Nicotine / Cotinine [] Negative [] Positive EGD [x] Dx: [x] GERD [] Dyspepsia [] Other Pathology [x] H. pylori [] Negative [] Positive UGI [x] [] not ordered US Abdomen [x] [] not ordered KISHOR eval [x] [] On CPAP / Obtain settings Hematology [] [] Hypercoagulation panel Toxicology [] [] Urine drug screen [] EtOH screen Addtional [] [] Hgb A1c INITIAL CONSULTATIONS CLEARANCE / MANAGEMENT Psychology [x] Dr. Dietitian [x] Cardiology [x] [] not ordered Pulmonary [] [x] not ordered Others [] []Heme/Onc []Psychiatry []Pain mgmt PSD [] Physician supervised diet: []None [x]3 mos []6 mos Preop diet [] Preop low calory diet: []None [x]1 wk []2 wks []Ext. FINAL PRE-OP TESTING RESULTS Labwork [x] [x]Pre-op CBC [x]BMP []Serum Nicotine / Cotinine EKG [x] CXR [x] POST-OP MEDICATIONS Ulcer Ppx [] Omeprazole 20 mg PO []QD []BID Gallstone Ppx [] Ursodiol 300 mg []BID DVT Ppx [] DVT prophylaxis per final preop visit estimated risk Estimated calculated risk: % Schedule final pre-operative office visit with surgeon, pre-operative education class, and pre-operative exercise class prior to date of surgery ATTESTATION I reviewed with the patient the details of the proposed operation. The risks benefits and options were discussed. Risks included but were not limited to bleeding, infection, damage to other surrounding organs, cardio-pulmonary complications related to anesthesia, conversion from laparoscopic to and open procedure, the need for reoperative or endoscopic therapy, the potential for prolonged mechanical ventilation, and . All questions were fully answered to the patient's satisfaction and they wish to proceed with surgical intervention. A total of over 45 minute visit was spent in face to face encounter, counseling the patient, discussing the surgical/perioperative plan, record review and documentation. The patient was seen and examined independently and relevant data including a full chart rreview was performed by myself. [facility] 01-18-2023 Note Initial New BCC surg ical patient Navigation & Financial Counseling Discussion Patient Communication: In office SURGEON: [] MICAELA [x] AD [] MP [] TB [] LM PROCEDURE: [] LRYGB [x] LSG [] TAURUS-S [] TAURUS [] UNDECIDED [] REV: SPECIFY: Confirmed pt wants to continue with surgical program/plan [x] YES [] NO (complete program withdrawal note/process) CO-MORBIDS: [] NONE [] DM []HTN [] KISHOR []GERD [] OTH: PRIVATE PAY: [] NO []YES DATE OF INITIAL BENEFITS VERIFICATION: TRANSFER FU: [] YES [] NO PRIMARY INSURANCE: Payor: MEDICARE / Plan: MEDICARE PART A AND B / Product Type: Medicare / BENEFIT ON PLAN: [] NO [] YES BENEFIT MAX: [] NO [] YES -- BENEFIT MAX: $ EMPLOYER: DIET AND EXERCISE (DE) REQUIREMENT PRIMARY [] NONE []3M [] 6M []9M [] Medicare 4 Months [] SPR (3M) []OTHER: SECONDARY INSURANCE: BENEFIT ON PLAN: [] NO [] YES BENEFIT MAX: [] NO [] YES -- BENEFIT MAX: $ AUTH REQUIRED FROM SECONDARY [] NO [] YES DIET AND EXERCISE REQUIREMENT SECONDARY [] NONE []3M [] 6M [] Medicare 4 months [] SPR (3M) []OTHER: ___ [x] Discussed with patient: Financial cost overview (document signed and pt given copy at new pt consult visit with surgeon), Initial appointments: Bariatric Nutrition Assessment (BNA) & Diet and Exercise (DE) Patient to look for yellow envelope in mail. This yellow envelope will contain orders for labs, testing and required clearances. Pt encouraged to complete early in program to prevent delays. Encourage blood work to be draw by 1st DE appointment. [x] Reviewed OOP cost, including: [] Optifast cost of approximately $130-140/week x weeks immediately prior to surgery - used to induce rapid weight loss which results in decrease in size of liver and therefore facilitates laparoscopically surgery approach. [x] Overview of inpatient admission benefits - estimated inpatient co-pays, deductibles and/or co-insurance - Estimated OOP costs form reviewed with patient, and copy given to patient at new pt visit. [x] Reviewed next steps with patient: 1) Scheduled at new pt surgeon visit: Desk Representative (RD) for a Nutrition Assessment (BNA) and Pre-operative Diet and Exercise (DE) appointment #1. [x] Patient reminded to arrive 15 minutes early for check in. Late arrivals may need to be rescheduled. 2) Schedule: Diet and Exercise Apt #2 only scheduled after initial BNA and DE completed, 3) Behavioral Health apt scheduled after DE started. Reviewed rational and goal of Behavioral Health appointments. 4) [x] Reinforced need to cancel any WMI appointments 48 hours in advance. Cautioned NS/Same day cancellations may result in delay in program or program completion hold. Noted: DE series needs to be a monthly series or insurance company may require repeat of the entire series. 5) [x] Smoker/tobacco products including vaping: reviewed need for cessation before surgery clearance and life long abstinence after surgery for best outcomes. Patient navigation to surgery: [x] Explained to patient that average time from initial consult to date of surgery can be 6-8 months. - Process can take longer if there are cancelled appointments, delays in testing and/or additional clearances that needs to be completed. - Reviewed importance of patient active engagement in making and keeping appointments to keep the process moving. - Reinforced need to cancel appointments at least 48 hours in advance. Reviewed that instances of No Shows and Same Day Appointment Cancellations may result in program/surgery delay or hold. [x] Patient advised of importance of having voicemail and MyChart for office communications and lab/testing results before and after surgery. [facility] 01-18-2023 Telephone encounter Note Initial New [facility] surgical patient Navigation & Financial Counseling Discussion Patient Communication: In office SURGEON: [] MICAELA [x] AD [] MP [] TB [] LM PROCEDURE: [] LRYGB [x] LSG [] TAURUS-S [] TAURUS [] UNDECIDED [] REV: SPECIFY: Confirmed pt wants to continue with surgical program/plan [x] YES [] NO (complete program withdrawal note/process) CO-MORBIDS: [] NONE [] DM []HTN [] KISHOR []GERD [] OTH: PRIVATE PAY: [] NO []YES DATE OF INITIAL BENEFITS VERIFICATION: TRANSFER FU: [] YES [] NO PRIMARY INSURANCE: Payor: MEDICARE / Plan: MEDICARE PART A AND B / Product Type: Medicare / BENEFIT ON PLAN: [] NO [] YES BENEFIT MAX: [] NO [] YES -- BENEFIT MAX: $ EMPLOYER: DIET AND EXERCISE (DE) REQUIREMENT PRIMARY [] NONE []3M [] 6M []9M [] Medicare 4 Months [] SPR (3M) []OTHER: SECONDARY INSURANCE: BENEFIT ON PLAN: [] NO [] YES BENEFIT MAX: [] NO [] YES -- BENEFIT MAX: $ AUTH REQUIRED FROM SECONDARY [] NO [] YES DIET AND EXERCISE REQUIREMENT SECONDARY [] NONE []3M [] 6M [] Medicare 4 months [] SPR (3M) []OTHER: ___ [x] Discussed with patient: Financial cost overview (document signed and pt given copy at new pt consult visit with surgeon), Initial appointments: Bariatric Nutrition Assessment (BNA) & Diet and Exercise (DE) Patient to look for yellow envelope in mail. This yellow envelope will contain orders for labs, testing and required clearances. Pt encouraged to complete early in program to prevent delays. Encourage blood work to be draw by 1st DE appointment. [x] Reviewed OOP cost, including: [] Optifast cost of approximately $130-140/week x weeks immediately prior to surgery - used to induce rapid weight loss which results in decrease in size of liver and therefore facilitates laparoscopically surgery approach. [x] Overview of inpatient admission benefits - estimated inpatient co-pays, deductibles and/or co-insurance - Estimated OOP costs form reviewed with patient, and copy given to patient at new pt visit. [x] Reviewed next steps with patient: 1) Scheduled at new pt surgeon visit: Desk Representative (RD) for a Nutrition Assessment (BNA) and Pre-operative Diet and Exercise (DE) appointment #1. [x] Patient reminded to arrive 15 minutes early for check in. Late arrivals may need to be rescheduled. 2) Schedule: Diet and Exercise Apt #2 only scheduled after initial BNA and DE completed, 3) Behavioral Health apt scheduled after DE started. Reviewed rational and goal of Behavioral Health appointments. 4) [x] Reinforced need to cancel any WMI appointments 48 hours in advance. Cautioned NS/Same day cancellations may result in delay in program or program completion hold. Noted: DE series needs to be a monthly series or insurance company may require repeat of the entire series. 5) [x] Smoker/tobacco products including vaping: reviewed need for cessation before surgery clearance and life long abstinence after surgery for best outcomes. Patient navigation to surgery: [x] Explained to patient that average time from initial consult to date of surgery can be 6-8 months. - Process can take longer if there are cancelled appointments, delays in testing and/or additional clearances that needs to be completed. - Reviewed importance of patient active engagement in making and keeping appointments to keep the process moving. - Reinforced need to cancel appointments at least 48 hours in advance. Reviewed that instances of No Shows and Same Day Appointment Cancellations may result in program/surgery delay or hold. [x] Patient advised of importance of having voicemail and MyChart for office communications and lab/testing results before and after surgery. [facility] 01-18-2023 History of Presen t illness Narrative [facility] SURGICAL WEIGHT LOSS MANAGEMENT PROGRAM Rooming Note - INITIAL CONSULTATION Patient: Mirlande Beltrán Date of : 1955 Service Date: 01/18/2023 Patient is here today to discuss the possibility of weight loss surgery. This patient is accompanied by spouse for the evaluation today she is interested in discussing weight loss surgery. Physician Supervised D/E: 3 Weight Metrics: Vitals BP: 133/81 Heart Rate: 66 Resp: 16 Temp: 36.1 C (97 F) Baseline Measures Initial Height: 5' 3.75 (161.9 cm) Initial Weight: 323 lb 3.2 oz (147 kg) Initial BMI: 56 Initial EBW: 204 lb 7.2 oz (92.7 kg) Initial Waist Cricumference: 56 Initial Neck Circumference: 16.25 Falls Risk Assessment Patient doestake medications which affect BP or mental status Patient does not have newly prescribed or changed dosage of medications within past 30 days which affect BP or mental status Patient has not fallen in the past 2 months Patient does demonstrate unsteady gait Patient uses the following ambulatory assistive devices: cane Patient is moderate risk for falls. If high or moderate risk, patient instructed not to ambulate independently in the Center, and cord for call light placed within reach of patient. History of Difficult Intubation: No Patient is not on home O2 Completed by: Ashlyn Lind LPN Images from the original note were not included. ASAD MOY MD , FACS, [facility] MINIMALLY INVASIVE & METABOLIC / BARIATRIC SURGERY [facility] BARIATRIC EVALUATION - HISTORY AND PHYSICAL 01/18/2023 PATIENT: Mirlande Beltrán DATE OF : 1955 - HISTORY OF PRESENT ILLNESS Chief Complaint: Obesity and associated conditions. Mirlande Beltrán is a 67 y.o. female with obesity and associated conditions who presents to the [facility] [place] for evaluation for metabolic/bariatric surgery. The patient stands Height: 5' 3.75 (161.9 cm) ([facility]GT [facility]K) tall with a weight of Weight: (!) 323 lb 3.2 oz (147 kg) , and has a BMI of Body mass index is 55.91 kg/m .. The patient has failed multiple attempts at non-surgical weight loss, and is now seeking surgical intervention to promote permanent and consistent weight loss. The patient suffers from several co-morbidities as a result of obesity as outlined in the past medical history. The patient denies a history of myocardia infarction, deep vein thrombosis, pulmonary embolism, renal failure, hepatic failure, stroke, and seizure. She does not smoke, and does not drink alcohol. Review of Systems Constitutional: Positive for fatigue. Negative for activity change, chills, fever and unexpected weight change. HENT: Negative for congestion. Eyes: Negative for visual disturbance. Respiratory: Positive for apnea, shortness of breath and wheezing. Negative for cough. Cardiovascular: Positive for leg swelling. Gastrointestinal: Positive for abdominal distention. Negative for abdominal pain, blood in stool, nausea and vomiting. Endocrine: Negative for cold intolerance and heat intolerance. Genitourinary: Negative for dysuria. Musculoskeletal: Positive for arthralgias, back pain, gait problem and joint swelling. Skin: Negative for color change, pallor, rash and wound. Neurological: Positive for weakness. Negative for dizziness, seizures and headaches. Hematological: Negative for adenopathy. Psychiatric/Behavioral: Positive for sleep disturbance. Negative for agitation and confusion. The patient is not nervous/anxious. PAST HISTORIES Past Medical History: Diagnosis Date Back pain GERD (gastroesophageal reflux disease) History of heart attack Hyperlipidemia Hypertension Joint pain Sleep apnea Snoring SOB (shortness of breath) on exertion Past Surgical History: Procedure Laterality Date APPENDECTOMY 1970 W CYST REMOVAL CARDIAC CATHETERIZATION 2020 CARDIOVERSION 2022 CYST REMOVAL Right 1970 W APPENDECTOMY Family History Problem Relation Name Age of Onset Cancer Mother Cancer Father Stroke Father Heart disease Father Hypertension Father Hypertension Brother Heart disease Brother Diabetes Brother Obesity Brother Diabetes Paternal Grandmother Cancer Maternal Grandmother Social History Tobacco Use Smoking status: Never Smokeless tobacco: Never Substance Use Topics Alcohol use: Not Currently @[email or web address]@ Allergies Allergen Reactions Metoprolol Other Extreme fatigue Pcn [Penicillins] Rash PHYSICAL EXAM BP 133/81 Pulse 66 Temp 36.1 C (97 F) Resp 16 Ht 5' 3.75 (1.619 m) Comment: [facility]GT [employer]K Wt (!) 323 lb 3.2 oz (147 kg) BMI 55.91 kg/m General: This patient is awake, alert, and oriented, with normal affect and is in no apparent distress. Cardiac: Regular rate and rhythm without evidence of murmur. Respiratory: Clear to auscultation bilaterally with normal effort. Abdomen: Obese, soft, non-tender, non-distended without masses/ No evidence of abdominal hernia / Incisions consistent with previous surgeries. Head and Neck: Obese, normocephalic and atraumatic/soft and supple, no lymphadenopathy or obvious bruits. No thyroidmegaly. Extremities: No cyanosis, clubbing or edema/ No calf tenderness/No restrictions of movement, is ambulatory without assistance. Neurological: Intact x 4 extremities, normal sensation, no focal deficits notes. Skin: Skin cool, warm and dry. No rashes or lesions noted. Rectal: Deferred LABORATORY STUDIES AND IMAGING Laboratory Studies: No results for input(s): NA, K, CL, CO2, BUN, CREATININE, GLUCOSE, CALCIUM in the last 72 hours. No results for input(s): WBC, RBC, HGB, HCT, MCV, MCH, MCHC, RDW, PLT, MPV in the last 72 hours. No results for input(s): ALKPHOS, ALT, AST, PROT, BILITOT, BILIDIR, LIPASE in the last 72 hours. No lab exists for component: LABALBU Imaging Studies: ASSESSMENT Based on today's evaluation, the patient is a candidate for metabolic/bariatric surgical intervention. We spent a great deal of time discussing the risks and benefits of various procedure and the patient is ideally suited for SLEEVE GASTRECTOMY - aka SG. We reviewed the potential risk of the procedure including but not limited to injury to intra-abdominal organs, breakdown of the gastric staple line, the need for re-operative therapy, prolonged hospitalization, mechanical ventilation, and . We discussed the possibility of bleeding, the need for blood transfusions, blood clots, hospital-acquired and intra-abdominal infection, anastomotic stricture, and worsening GERD. And we discussed the need for post-operative visit compliance, behavior modifications and dietary compliance, protein and vitamin supplementation, as well as routine scheduled and dedicated exercise. We discussed the potential weight loss benefit, resolution of co-morbid conditions, as well as the possibility of insufficient weight loss or weight gain after 2 years post-operative time. Upon completion of all required pre-operative testing we will submit for insurance pre-authorization. PLAN Encounter Diagnoses Name Primary? Sleep apnea, unspecified type Primary hypertension Back pain, unspecified back location, unspecified back pain laterality, unspecified chronicity Hyperlipidemia, unspecified hyperlipidemia type Morbid obesity with BMI of 50.0-59.9, adult (HCC) I have recommended proceeding with the evaluation and work-up for the primary procedure as outlined below: PATIENT SUMMARY Mirlande Moy 67 y.o. female with Body mass index is 55.91 kg/m . SLEEVE GASTRECTOMY - aka SG Procedure DM[] HTN[x] KISHOR[x] GERD[x] HL[x] OA[x] TOB[] Date of Surgery: TBD NOTES AD Pt taking semiglutide. Here for eval for WLS to optimize bl TKA / Hx of [place] Was an [employer] in [place] for more than 30 years and goes by Damion PCP: Arthur Gamez MD INITIAL TESTING RESULTS Labwork [x] CMP, TSH, Fasting Lipid Profile, Mg, Zinc, Vit B1 (whole blood), Vit B12, 25-OH Vit D, Fe, Ferritin, Folate Tobacco [x] Serum Nicotine / Cotinine [] Negative [] Positive EGD [x] Dx: [x] GERD [] Dyspepsia [] Other Pathology [x] H. pylori [] Negative [] Positive UGI [x] [] not ordered US Abdomen [x] [] not ordered KISHOR eval [x] [] On CPAP / Obtain settings Hematology [] [] Hypercoagulation panel Toxicology [] [] Urine drug screen [] EtOH screen Addtional [] [] Hgb A1c INITIAL CONSULTATIONS CLEARANCE / MANAGEMENT Psychology [x] Dietitilindsey [x] Cardiology [x] [] not ordered Pulmonary [] [x] not ordered Others [] []Heme/Onc []Psychiatry []Pain mgmt PSD [] Physician supervised diet: []None [x]3 mos []6 mos Preop diet [] Preop low calory diet: []None [x]1 wk []2 wks []Ext. FINAL PRE-OP TESTING RESULTS Labwork [x] [x]Pre-op CBC [x]BMP []Serum Nicotine / Cotinine EKG [x] CXR [x] POST-OP MEDICATIONS Ulcer Ppx [] Omeprazole 20 mg PO []QD []BID Gallstone Ppx [] Ursodiol 300 mg []BID DVT Ppx [] DVT prophylaxis per final preop visit estimated risk Estimated calculated risk: % Schedule final pre-operative office visit with surgeon, pre-operative education class, and pre-operative exercise class prior to date of surgery ATTESTATION I reviewed with the patient the details of the proposed operation. The risks benefits and options were discussed. Risks included but were not limited to bleeding, infection, damage to other surrounding organs, cardio-pulmonary complications related to anesthesia, conversion from laparoscopic to and open procedure, the need for reoperative or endoscopic therapy, the potential for prolonged mechanical ventilation, and . All questions were fully answered to the patient's satisfaction and they wish to proceed with surgical intervention. A total of over 45 minute visit was spent in face to face encounter, counseling the patient, discussing the surgical/perioperative plan, record review and documentation. The patient was seen and examined independently and relevant data including a full chart rreview was performed by myself. MOY MD, FACS, [facility] Economic Development Coordinator - [facility] [place] [facility] Bowling Alley Operator - Advanced GI MIS, Foregut and Bariatric Surgery Fellowship ---[facility]--- Patient Care Team: Arthur Gamez MD as PCP - General (Family Medicine) documented in this encounter [facility] documented in this encounter [facility]* Diagnosis Sleep apnea, unspecified type- Primary Primary hypertension Unspecified essential hypertension Back pain, unspecified back location, unspecified back pain laterality, unspecified chronicity Hyperlipidemia, unspecified hyperlipidemia type Morbid obesity with BMI of 50.0-59.9, adult (HCC) Gastroesophageal reflux disease, unspecified whether esophagitis present Arthralgia, unspecified joint Prediabetes Other abnormal glucose documented in this encounter [facility]* Diagnosis Sleep apnea, unspecified type- Primary Primary hypertension Unspecified essential hypertension Back pain, unspecified back location, unspecified back pain laterality, unspecified chronicity Hyperlipidemia, unspecified hyperlipidemia type Morbid obesity with BMI of 50.0-59.9, adult (HCC) Gastroesophageal reflux disease, unspecified whether esophagitis present Arthralgia, unspecified joint Prediabetes Other abnormal glucose documented in this encounter [facility]* Diagnosis Morbid obesity due to excess calories (HCC)- Primary KISHOR (obstructive sleep apnea) Obstructive sleep apnea (adult) (pediatric) Hypertension, unspecified type documented in this encounter [facility]* Diagnosis Primary hypertension- Primary Unspecified essential hypertension documented in this encounter [facility]* Diagnosis Morbid obesity due to excess calories (HCC)- Primary KISHOR (obstructive sleep apnea) Obstructive sleep apnea (adult) (pediatric) Hypertension, unspecified type documented in this encounter [facility]* Diagnosis Morbid obesity due to excess calories (HCC)- Primary Hypertension, unspecified type documented in this encounter [facility]* Diagnosis Morbid obesity due to excess calories (HCC)- Primary Hypertension, unspecified type documented in this encounter [facility]* Diagnosis Sleep apnea, unspecified type- Primary Primary hypertension Unspecified essential hypertension Back pain, unspecified back location, unspecified back pain laterality, unspecified chronicity Hyperlipidemia, unspecified hyperlipidemia type Morbid obesity with BMI of 50.0-59.9, adult (HCC) Gastroesophageal reflux disease, unspecified whether esophagitis present Arthralgia, unspecified joint Prediabetes Other abnormal glucose Pre-operative laboratory examination Pre-procedural laboratory examination Encounter for tobacco use screening [facility] Diagnosis Morbid obesity due to excess calories (HCC)- Primary Hypertension, unspecified type documented in this encounter [facility] note* Diagnosis Sleep apnea, unspecified type- Primary Primary hypertension Unspecified essential hypertension Back pain, unspecified back location, unspecified back pain laterality, unspecified chronicity Hyperlipidemia, unspecified hyperlipidemia type Morbid obesity with BMI of 50.0-59.9, adult (HCC) Gastroesophageal reflux disease, unspecified whether esophagitis present Arthralgia, unspecified joint Prediabetes Other abnormal glucose Pre-operative laboratory examination Pre-procedural laboratory examination Encounter for tobacco use screening documented in this encounter [facility] note* Diagnosis Sleep apnea, unspecified type- Primary Primary hypertension Unspecified essential hypertension Back pain, unspecified back location, unspecified back pain laterality, unspecified chronicity Hyperlipidemia, unspecified hyperlipidemia type Morbid obesity with BMI of 50.0-59.9, adult (HCC) Gastroesophageal reflux disease, unspecified whether esophagitis present Arthralgia, unspecified joint Prediabetes Other abnormal glucose Pre-operative laboratory examination Pre-procedural laboratory examination Encounter for tobacco use screening documented in this encounter [facility] for referral (narrative)* Consultation (Routine) - Pending Review Specialty Diagnoses / Procedures Referred By Kerrie montero Referred To Contact Pulmonary Disease / Pulmonology Diagnoses Sleep apnea, unspecified type Primary hypertension Hyperlipidemia, unspecified hyperlipidemia type Morbid obesity with BMI of 50.0-59.9, adult (HCC) Procedures MA OFFICE/OUTPATIENT [facility] 60-74 MINUTES Juana Augustin APRN - SECURITY DISPATCHER [address] [place] [address] [facility] [address] [place] [address] Referral ID Status Reason Start Date Expiration Date Visits Requested Visits Authorized [id number] Pending Review Specialty Services Required 01/27/2023 01/27/2024 1 1 * Consultation (Elective) - Pending Review Specialty Diagnoses / Procedures Referred By Kerrie t Referred To Contact Cardiology Diagnoses Sleep apnea, unspecified type Primary hypertension Hyperlipidemia, unspecified hyperlipidemia type Morbid obesity with BMI of 50.0-59.9, adult (HCC) Procedures MA OFFICE/OUTPATIENT NEW HIGH MDM 60-74 MINUTES Juana Augustin APRN - SECURITY DISPATCHER [address] [facility] [address] [place] [address] [facility] Cf Card [address] [place] [address] Referral ID Status Reason Start Date Expiration Date Visits Requested Visits Authorized [id number] Pending Review Specialty Services Required 01/27/2023 01/27/2024 1 1 [facility] Summary Purpose Family History No Family History Records Found Advance Directives No Advanced Directives Records Found Additional Source Comments Reason for Visit (unrecogniz ed section and content) Specialty Diagnoses / Procedures Referred By Kerrie montero Referred To Contact Bariatrics Diagnoses Morbid (severe) obesity due to excess calories (HCC) Procedures Eval & Treat Arthur Gamez MD [address] [address] Asad Moy MD [address] [facility] [address] [place] [address] Referral ID Status Reason Start Date Expiration Date V isits Requested Visits Authorized [id number] Pending Review 12/27/2022 12/27/2023 1 1 Reason Onset Date Comments Financial File 01/18/2023 Financial File 2 023 Surgery Scheduling 01/18/2023 Initial sched uling-orders placed Reason Comments Weight Loss D/E NEW 1 of 3 Reason Comments Nutrition Counseling BNA initial Reason Comments Weight Loss D/E 2 of 3 Reason Comments Weight Loss D/E 3/3 Care Teams (unrecognized sec tion and content) Gear Tester Relationship Specialty Start Date End Date Arthur Gamez MD [address] [place] [address] PCP - General Family Medicine 01/02/23 Asad Moy MD [address] [place] [address] [address] [place], [place] [id number] Surgeon General Surgery 01/27/23 Gear Tester Relationship Specialty Start Date End Date Arthur Gamez MD [address] [facility] [address] [place] [address] PCP - General Family Medicine 01/02/23 Asad Moy MD [address] [place] [address] [address] [place], [place] [id number] Surgeon General Surgery 01/27/23 Gear Tester Relationship Specialty Start Date End Date Arthur Gamez MD [address] [facility] [address] [place] [phone] PCP - General Family Medicine 01/02/23 Asad Moy MD [address] [place] [address] [address] [place], [place] [id number] Surgeon General Surgery 01/27/23 Gear Tester Relationship Specialty Start Date End Date Arthur Gamez MD [address] [facility] [address] [place] [address] PCP - General Family Medicine 01/02/23 Asad Moy MD [address] [place] [address] [address] [place] [address] Surgeon General Surgery 01/27/23 Gear Tester Relationship Specialty Start Date End Date Arthur Gamez MD [address] [facility] [address] [place] [phone] PCP - General Family Medicine 01/02/23 Asad Moy MD [address] [place] [address] [address] [place], [place] [id number] Surgeon General Surgery 01/27/23 Gear Tester Relationship Specialty Start Date End Date Arthur Gamez MD [address] [facility] [address] [place] [phone] PCP - General Family Medicine 01/02/23 Asad Moy MD [address] [place] [address] [address] [place], [place] [id number] Surgeon General Surgery 01/27/23 Abelardo Charlton [address] [place] [address] Internal Medicine 03/13/23 Deondre Meraz. [address] [place] [address] Oncology 03/13/23 Gear Tester Relationship Specialty Start Date End Date Arthur Gamez MD [address] [facility] [address] [place] [phone] PCP - General Family Medicine 01/02/23 Asad Moy MD [address] [place] [address] [address] [place], [place] [id number] Surgeon General Surgery 01/27/23 Abelardo Charlton [address] [place] [address] Internal Medicine 03/13/23 Deondre Meraz. [address] [place] [phone] Oncology 03/13/23 Gear Tester Relationship Specialty Start Date End Date Arthur Gamez MD [address] [facility] [address] [place] [phone] PCP - General Family Medicine 01/02/23 Asad Moy MD [address] [place] [address] [address] [place], [place] [id number] Surgeon General Surgery 01/27/23 Abelardo Charlton [address] [place] [phone] Internal Medicine 03/13/23 Deondre Meraz. [address] [place] [phone] Oncology 03/13/23 Gear Tester Relationship Specialty Start Date End Date Arthur Gamez MD [address] [facility] [address] [place] [phone] PCP - General Family Medicine 01/02/[address] [place] [address] Surgeon General Surgery 01/27/23 Abelardo Charlton [address] [place] [address] Internal Medicine 03/13/23 Deondre Meraz. [address] [place] [address] Oncology 03/13/23 Gear Tester Relationship Specialty Start Date End Date Arthur Gamez MD [address] [facility] [address] [place] [phone] PCP - General Family Medicine 01/02/23 Asad Moy MD [address] [place] [address] [address] [place], [place] [id number] Surgeon General Surgery 01/27/23 Abelardo Charlton [address] [place] [phone] Internal Medicine 03/13/23 Deondre Meraz. [address] [place] [address] [phone] Oncology 03/13/23 Gear Tester Relationship Specialty Start Date End Date Arthur Gamez MD [address] [facility] [address] [place] [phone] PCP - General Family Medicine 01/02/23 Asad Moy MD [address] [place] [address] [address] [place] [address] Surgeon General Surgery 01/27/23 Abelardo Charlton [address] [place] [phone] Internal Medicine 03/13/23 Deondre Meraz. [address] [place] [phone] Oncology 03/13/23 Gear Tester Relationship Specialty Start Date End Date Arthur Gamez MD [address] [place] [address] PCP - General Family Medicine 01/02/23 Asad Moy MD [address] [place] [address] [address] [place] [address] Surgeon General Surgery 01/27/23 Abelardo Charlton [address] [place] [phone] Internal Medicine 03/13/23 Deondre Meraz. [address] [place] [phone] Oncology 03/13/23 INFORMATION SOURCE (unrecogn ized section and content) FOR RECORDS PERTAINING TO PATIENTS WHO ARE OR HAVE BEEN ENROLLED IN A CHEMICAL DEPENDENCY/SUBSTANCEABUSE PROGRAM, SOME INFORMATION MAY BE OMITTED. This clinical summary was aggregated from multiple sources. Caution should be exercised in using it in the provision of clinical care. This summary normalizes information from multiple sources, and as a consequence, information in this document may materially change the coding, format and clinical context of patient data. In addition, data may be omitted in some cases. CLINICAL DECISIONS SHOULD BE BASED ON THE PRIMARY CLINICAL RECORDS. [email or web address] provides no warranty or guarantee of the accuracy or completeness of information in this document.
[2023-07-13 10:11] LABS: Absolute Lymphocyte Count 2.41 X10^3/uL (0.83-4.51); Absolute Neutrophil Count 5.1 X10^3/uL (2.0-7.7); Basophil# 0.04 X10^3/uL; Basophil% 0.5 % (0-1); Eosinophil# 0.29 X10^3/uL; Eosinophils% 3.4 % (0-5); Hematocrit 42.2 % (37-47); Hemoglobin 12.9 g/dL (12.0-15.0); Lymphocyte # 2.41 X10^3/ul (0.83-4.51); Lymphocyte % 28.5 % (19-41); Mean Corp Hgb Conc 30.6 g/dL (32-36); Mean Corpuscular Hgb 27.4 pg (27.0-32.0); Mean Corpuscular Volume 89.6 fL (81-99); Mean Platelet Vol. 11.2 fl (6.2-12.0); Monocyte# 0.64 X10^3/uL; Monocyte% 7.6 % (0-10); NRBC Flagged by Analyzer 0 % (0-5); Neutrophil # 5.05 X10^3/uL (2.7-7.7); Neutrophil % 59.6 % (47-70); Platelet Count 255 K/mm3 (150-450); RBC Distribution Width CV 13.1 % (11.6-14.6); RBC Distribution Width SD 43.3 fl (35.1-43.9); Red Blood Count 4.71 M/mm3 (4.2-5.4); White Blood Count 8.5 K/mm3 (4.4-11.0)
[2023-07-13 10:28] LABS: ALB/GLOB Ratio 0.7 RATIO (0.9-2.4); AST(SGOT) 15 U/L (15-37); Alanine Aminotransfer ALT/SGPT 28 U/L (13-56); Albumin, Serum 3.2 g/dL (3.2-5.0); Alkaline Phosphatase 124 U/L (45-117); Anion Gap 6 (5-15); BUN 18 mg/dL (7-18); BUN/Creat Ratio 19.4 RATIO (10-20); Calcium,Total 9.4 mg/dL (8.5-10.1); Chloride 102 mmol/L (98-107); Cholesterol 133 mg/dL (200); Creatinine, Serum 0.93 mg/dL (0.55-1.02); EST Glomerular Filtration Rate 64 mL/min (>60); Est Glom Filt Rate - Afr Amer 77 mL/min (>60); Globulin 4.3 g/dL (2.2-4.2); Glucose 101 mg/dL (74-106); High Density Lipoprotein 58 mg/dL; Potassium 4.3 mmol/L (3.5-5.1); Protein, Total 7.5 g/dL (6.4-8.2); Sodium Level 137 mmol/L (136-145); Triglycerides 82 mg/dL; Very Low Density Lipoprotein 16 mg/dL (5-40)
== END | disposition home or self-care (01) ==
LOC: MFPLAB 08:24
PROVIDERS: PCP Family Medicine; Visit Provider Family Medicine
DX: E55.9 Vitamin D deficiency, unspecified (principal); E78.5 Hyperlipidemia, unspecified
CPT/HCPCS: 36415; 80053; 80061; 82306; 85025

== ENCOUNTER → 2023-09-06 | Outpatient (CLI) | payer MEDICARE, OTHER, SELFPAY ==
[2022-10-18 10:25] VITALS: BMI 53.1
--- NOTE | 2023-09-06 10:22 | VDLE_ITS ---
Reason For Study: BLE Edema RIGHT LEFT GSV is normal. GSV is normal. CFV is compressible, spontaneous, phasic, CFV is compressible, spontaneous, phasic, competent and demonstrates normal competent, and demonstrates normal augmentation. augmentation. FV is compressible, spontaneous, phasic, FV is compressible, spontaneous, phasic, competent and demonstrates normal competent and demonstrates normal augmentation. augmentation. POP V is compressible, spontaneous, phasic, POP V is compressible, spontaneous, phasic, competent and demonstrates normal competent and demonstrates normal augmentation. augmentation. T/P Trunk is compressible. T/P Trunk is compressible. PTV is compressible. PTV is compressible. RT PerV is compressible. LT PerV is compressible. Procedure This is a venous duplex using B-mode, color flow and spectral Doppler. Exam performed in department. The exam was diagnostic. A preliminary report was called and/or faxed to [facility]acon / [employer]. VL/Venous Duplex US - Satinder Extrem Interpretation Summary No evidence for acute deep venous thrombosis bilateral lower extremities with p atent and compressible bilateral great saphenous veins. Ordering Physician: ELY COSME Referring Physician: Walter Mendez Performed By: Ok Jackson RVT
--- OUTSIDE RECORDS SUMMARY | 2023-09-06 10:51 | XMS RPT_ITS | CCD ---
Author Name Unknown Address [address] [place] [address] Organization [facility] Care Team Providers Care Glass Products Inspector Name Role Phone Andrea EVERETT, Arthur Shultz Primary Care Provider Asad Moy MD Unavailable Abelardo Charlton Unavailable Deondre Meraz. Unavailable Hallie MCKENZIE, Radha Escobar Unavailable Unavailab ASAD Negro Admitting Unavailable ASAD MOY Attending Unavailable ARTHUR GAMEZ Primary Care Unavailable CHANTAL CAROLINA Attending Unavailable ARTHUR GAMEZ Primary Care Unavailable ASAD MOY Attending Unavailable ARTHUR GAMEZ Primary Care Unavailable ASAD MOY Attending Unavailable ARTHUR GAMEZ Referring Unavailable ARTHUR GAMEZ Primary Care Unavailable CHANTAL CAROLINA Attending Unavailable ARTHUR GAMEZ Primary Care Unavailable ARTHUR GAMEZ Primary Care Unavailable LICO [...] Referring Unavailable ARTHUR GAMEZ Primary Care Unavailable Allergies Allergy Classification Reported Allergen(s) Allergy Type Date of Onset Reaction(s) Facility (20 sources) Metoprolol Drug Allergy 01-18-2023 Other [facility] (20 sources) Penicillins Propensity to adverse reactions 01-18-2023 Rash [facility] Medications Current Medications Medication Drug Class(es) Dates Sig (Normalized) Sig (Original) apixaban 5 mg oral tablet (20 sources) Factor Xa Inhibitor Start: 11-17-2022 take 1 tablet by mouth twice daily Eliquis 5 MG tablet Indications: atrial fib Take 5 mg by mouth 2 times daily. 0 11/17/2022 Active calcium carbonate 600 mg oral capsule (20 sources) Calcium Carbonat e (CALCIUM-CARB 600 PO) 600 mg before bedtime. 0 Active cetirizine hydrochloride 10 mg oral capsule (20 sources) Histamine-1 Receptor Antagonist take 1 capsule by mouth every twenty-four hours as needed Cetirizine HCl (ZyrTEC ALLERGY) 10 MG capsule 10 mg Daily as needed. 0 Active cholecalciferol 0.25 mg oral capsule (20 sources) Vitamin D cholecalciferol (Vitamin D-3) 250 MCG (57934 UT) capsule 10,000 Units daily. 0 Active Completed/Discontinued Medications Medication Drug Class(es) Dates Sig (Normalized) Sig (Original) acetaminophen 500 mg oral tablet (6 sources) Start: 08-03-2023 End: 08-03-2023 acetaminophen (Tylenol) tablet 1,000 mg Problems Active Problems Problem Classification Problem Date Documented Date Episodic/Chronic Acute myocardial infarction (7 sources) Myocardial infarction; Translations: [Non-ST elevation (NSTEMI) myocardial infarction] Onset: 07-24-2023 07-24-2023 Chronic Biliary tract disease (18 sources) Biliary sludge; Translations: [Other specified diseases of biliary tract] Onset: 05-25-2023 05-25-2023 Chronic Cardiac dysrhythmias (11 sources) Paroxysmal atrial fibrillation; Translations: [Paroxysmal atrial fibrillation] Onset: 07-24-2023 07-26-2023 Chronic Diabetes mellitus without complication (8 sources) Prediabetes; Translations: [Prediabetes] 01-27-2023 Episodic Disorders of lipid metabolism (20 sources) Hyperlipidemia; Translations: [Hyperlipidemia, unspecified] Onset: 01-18-2023 01-18-2023 Chronic Diverticulosis and diverticulitis (18 sources) Diverticulosis of colon; Translations: [Diverticulosis of large intestine without perforation or abscess without bleeding] Onset: 03-14-2023 03-14-2023 Chronic Esophageal disorders (20 sources) Gastroesophageal reflux disease; Translations: [Gastro-esophageal reflux disease without esophagitis] Onset: 01-18-2023 01-18-2023 Chronic Essential hypertension (20 sources) Essential hypertension; Translations: [Essential (primary) hypertension] Onset: 01-18-2023 01-18-2023 Chronic Neoplasms of unspecified nature or uncertain behavior (17 sources) Monoclonal gammopathy of uncertain significance; Translations: [Monoclonal gammopathy] Onset: 03-21-2023 03-21-2023 Chronic Nutritional deficiencies (7 sources) Deficiency of multiple nutrient elements; Translations: [Deficiency of multiple nutrient elements] Onset: 08-08-2023 08-08-2023 Episodic Other liver diseases (3 sources) Steatosis of liver; Translations: [Fatty (change of) liver, not elsewhere classified] Onset: 08-09-2023 08-09-2023 Chronic Other liver diseases (1 source) Fatty (change of) liver, not elsewhere classified; Translations: [Fatty (change of) liver, not elsewhere classified] Onset: 08-09-2023 Chronic Other non-traumatic joint disorders (8 sources) Joint pain; Translations: [Pain in unspecified joint] 01-27-2023 Episodic Other nutritional; endocrine; and metabolic disorders (20 sources) Body mass index 40+ - severely obese; Translations: [Morbid (severe) obesity due to excess calories] Onset: 08-03-2023 01-18-2023 Chronic Other nutritional; endocrine; and metabolic disorders (10 sources) Morbid obesity; Translations: [Morbid (severe) obesity due to excess calories] Onset: 08-03-2023 02-09-2023 Chronic Other nutritional; endocrine; and metabolic disorders (3 sources) Obesity caused by energy imbalance; Translations: [Morbid (severe) obesity due to excess calories] Onset: 08-03-2023 08-03-2023 Chronic Other nutritional; endocrine; and metabolic disorders (1 source) Morbid (severe) obesity due to excess calories; Translations: [Morbid (severe) obesity due to excess calories (HCC)] Onset: 08-03-2023 Chronic Other nutritional; endocrine; and metabolic disorders (2 sources) Body mass index (BMI) 50.0-59.9, adult; Translations: [Body mass index (BMI) 50.0-59.9, adult (HCC)] Onset: 08-03-2023 Chronic Other nutritional; endocrine; and metabolic disorders (2 sources) Personal history of other endocrine, nutritional and metabolic disease; Translations: [Personal history of other endocrine, nutritional and metabolic disease] Onset: 07-24-2023 Episodic Residual codes; unclassified (20 sources) Sleep apnea; Translations: [Sleep apnea, unspecified] Onset: 01-18-2023 01-18-2023 Chronic Residual codes; unclassified (13 sources) Obstructive sleep apnea syndrome; Translations: [Obstructive sleep apnea (adult) (pediatric)] Onset: 07-24-2023 02-09-2023 Chronic Residual codes; unclassified (2 sources) Obstructive sleep apnea (adult) (pediatric); Translations: [Obstructive sleep apnea (adult) (pediatric)] Onset: 07-24-2023 Chronic Residual codes; unclassified (2 sources) Sleep apnea, unspecified; Translations: [Sleep apnea, unspecified] Onset: 01-18-2023 Chronic Residual codes; unclassified (2 sources) History of sleeve gastrectomy; Translations: [Acquired absence of stomach [part of]] 08-09-2023 Episodic Residual codes; unclassified (2 sources) Acquired absence of stomach [part of]; Translations: [Acquired absence of stomach (part of)] Onset: 08-09-2023 Episodic Spondylosis; intervertebral disc disorders; other back problems (20 sources) Backache; Translations: [Dorsalgia, unspecified] Onset: 01-18-2023 01-18-2023 Episodic Past or Other Problems Problem Classification Problem Date Documented Da te Episodic/Chronic Esophageal disorders (18 sources) Esophagitis; Translations: [Esophagitis] Onset: 03-14-2023 03-14-2023 Episodic Other and unspecified benign neoplasm (18 sources) Tubular adenoma of colon; Translations: [Benign neoplasm of colon, unspecified] Onset: 03-14-2023 03-14-2023 Episodic Other nutritional; endocrine; and metabolic disorders (2 sources) Weight loss; Translations: [Weight Loss] Onset: 03-16-2023 Episodic Results Test Name Value Interpretation Reference Range Facil ity Vital Signs Date Time Vital Sign Value Performing Clinician Faci lity 08-09-2023 07:54-0500 Body height 161.9 cm Asad Moy MD Work Phone: [facility] Encounters Encounter Date Encounter Type Care Provider Facility Start: 08-09-2023 End: 08-09-2023 ambulatory ASAD MOY [facility] Start: 08-09-2023 End: 08-09-2023 Postop follow up visit related to original px Asad Moy MD Work Phone: [facility] Procedures Date Procedure Procedure Detail Performing Clinician Start: 08-04-2023 Basic metabolic pane l calcium total Mukul Guaman MD Work Phone: Start: 08-03-2023 Basic metabolic pane l calcium total Mukul Guaman MD Work Phone: Start: 08-03-2023 End: 08-03-2023 Laps gstrc rstrictiv px longitudinal gastrectomy Asad Moy MD Work Phone: Start: 04-28-2023 Adult depression scr eening assessment Lico Mitchell MD Work Phone: Start: 02-21-2023 Colonoscopy Juana Bola le GLOBAL CATEGORY MANAGER - SEASONAL CUSTOMER SERVICE ASSOCIATE Work Phone: Start: 11-23-2022 Mammography Asad Moy MD Work Phone: Plan of Treatment Date Care Activity Detail Author Start: 02-21-2033 Screening for malignant neoplasm of colon [facility] Start: 07-24-2024 Diabetes mellitus screening Diabetes Screening [facility] Start: 04-28-2024 Depression Screening Depression Screening [facility] Start: 11-24-2023 Screening for malignant neoplasm of breast Mammogram [facility] Start: 09-06-2023 End: 09-06-2023 Patient encounter procedure 09/06/2023 7:40 AM EST Office Visit [address] [place] [address] Asad Moy MD [address] [place] [address] [address] [place] [address] [facility] Start: 08-23-2023 End: 08-09-2024 CBC panel - Blood by Automated count CBC Lab Routine Primary hypertension Gastroesophageal reflux disease, unspecified whether esophagitis present Hyperlipidemia, unspecified hyperlipidemia type Morbid obesity with BMI of 50.0-59.9, adult (HCC) Deficiency of multiple nutrient elements BMI 50.0-59.9, adult (HCC) Fatty (change of) liver, not elsewhere classified Expected: 08/23/2023 (Approximate), Expires: 08/09/2024 [facility] Immunizations Immunization Date Immunization Notes Care Provider Fa devin 06-14-2022 influenza virus vacc ine, unspecified formulation Asad Moy MD Work Phone: [facility] Payers Date Payer Category Payer Unknown [employer] [place] MEDICARE SUPPLEMENT [id number] 2021-Present [address] [place] [address] Supplement [id number] 2021 Unknown [id number] 2019 Medicare MEDICARE MEDICAR E PART A AND B [id number] 2019-Present [address] [place] [address] Medicare [id number] 2019 Medicare [id number] Social History Date Type Detail Facility Start: 01-18-[facility]23 [facility] Start: 01-18-2023 Tobacco use and exposure Smokeless tobacco non-user [facility] Start: 01-18-2023 End: 08-09-2023 Alcohol intake Ex-drinker (finding) [facility] Start: 01-18-2023 End: 04-28-2023 History of Social function [facility] Work Phone: Start: 01-18-2023 End: 04-28-2023 Tobacco use panel [facility] Work Phone: Start: 1955 Sex Assigned At Not on file [facility] Start: 01-08-2023 End: 04-03-2023 Exposure to SARS-CoV-2 (event) Not sure [facility] Clinical Notes 01-18-2023 to 08-09-2023 Asad Moy MD - 08/09/2023 7:30 AM Garcia Lind LPN - 08/09/2023 7:[address] - 08/09/2023 7:30 AM Randal Palmer RN - 08/04/2023 2:15 PM ESTDischarge Instructions Note Date & Type Note Facility 08-09-2023 History of Presen t illness Narrative Images from the original note were not included. ASAD MOY MD , FACS, [facility] MINIMALLY INVASIVE & METABOLIC / BARIATRIC SURGERY [facility] MBS - 1 WEEK FOLLOW UP 08/09/2023 PATIENT: Mirlande Beltrán DATE OF : 1955 - HISTORY OF PRESENT ILLNESS Chief Complaint: 1 week follow-up status post robotic SLEEVE GASTRECTOMY - aka SG UMBILICAL HERNIA REPAIR. Mirlande Beltrán is a 68 y.o. female who presents to the bariatric care center today for their 1 week evaluation following bariatric surgery with Dr. Moy. The total weight lost is 28 pounds for a 14 % EWL. Overall, the patient is experiencing a good recovery and return to normal activity. The patient is ambulating regularly and has been instructed to gradually increase physical activity. The patient is not reporting any nausea, emesis or dysphagia with diet. The patient is starting PPI therapy. The patient is feeling well and denies any other major complaints or GI symptoms. The dietary regimen and exercise activities are going well. The patient is compliant with protein intake and vitamin/trace element supplementation. Dysphagia and eating concerns: No Dietary compliance concerns: No Exercise and activity concerns: No Compliance and phychologic concerns: No Oral thrush concerns: No Incisional problems or concerns: No VTE prophylaxis compliance concerns: No- WALKING LOTS, NO CALF PAIN. Labs were ordered for 1 month visit Review of Symptoms Constitutional: negative for chills, fevers, night sweats Respiratory: negative for cough, dyspnea on exertion, hemoptysis, and sputum Cardiovascular: negative for chest pain, chest pressure/discomfort, dyspnea, irregular heart beat, palpitations, and syncope Gastrointestinal: negative for abdominal pain, constipation, diarrhea, dysphagia, melena, reflux symptoms, and vomiting Neurological: negative for dizziness, paresthesia, seizures, and weakness PAST HISTORIES Past Medical History: Diagnosis Date Atrial fibrillation (HCC) Back pain COVID-19 vaccine series declined GERD (gastroesophageal reflux disease) Hyperlipidemia Hypertension Joint pain Myocardial infarction (HCC) Sleep apnea Snoring SOB (shortness of breath) on exertion Past Surgical History: Procedure Laterality Date ADENOIDECTOMY APPENDECTOMY 1970 W CYST REMOVAL CARDIAC CATHETERIZATION 2020 CARDIOVERSION 2022 COLONOSCOPY 02/21/2023 Dr Soares. sigmoid polyp, diverticula. CYST REMOVAL Right 1970 W APPENDECTOMY EGD (HISTORICAL) 02/21/2023 DR Soares- esophagitis, Schatzki's ring, sm amount of food. SLEEVE GASTRECTOMY, LAPAROSCOPIC (HISTORICAL) 08/03/2023 08/03/2023 ROBOTIC LSG,umbilical hernia AD TONSILLECTOMY UMBILICAL HERNIA REPAIR 08/03/2023 08/03/2023 ROBOTIC LSG,umbilical hernia AD Family History Problem Relation Name Age of Onset Cancer Mother Cancer Father Stroke Father Heart disease Father Hypertension Father Hypertension Brother Heart disease Brother Diabetes Brother Obesity Brother Diabetes Paternal Grandmother Cancer Maternal Grandmother Allergies Allergen Reactions Metoprolol Other Extreme fatigue Pcn [Penicillins] Rash PHYSICAL EXAM BP 101/67 Pulse 60 Temp 36.1 C (97 F) Resp 16 Ht 5' 3.75 (1.619 m) Comment: BCC Wt 294 lb 12.8 oz (134 kg) BMI 51.00 kg/m General: This patient is awake, alert, [...] No rashes or lesions noted. Rectal: Deferred Surgical sites: are:clean, dry, intact, and nontender Drainage from surgical site: none Patient does not have a superficial incisional SSI PATHOLOGY RESULTS: LIVER, BIOPSY-LIVER TISSUE WITH MINIMAL STEATOSIS B. STOMACH, PARTIAL GASTRECTOMY-BENIGN PORTION OF STOMACH WITH MILD CHRONIC, INACTIVE GASTRITIS C. HERNIORRHAPHY-MESOTHELIAL LINED FIBROADIPOSE TISSUE, COMPATIBLE WITH HERNIA SAC, WITH MILD REACTIVE CHANGES Laboratory Studies: ASSESSMENT 1 week status post SLEEVE GASTRECTOMY - aka SG Visit Diagnoses: 1. KISHOR (obstructive sleep apnea) 2. Primary hypertension 3. Gastroesophageal reflux disease, unspecified whether esophagitis present 4. Hyperlipidemia, unspecified hyperlipidemia type 5. Back pain, unspecified back location, unspecified back pain laterality, unspecified chronicity 6. Morbid obesity with BMI of 50.0-59.9, adult (HCC) 7. Deficiency of multiple nutrient elements 8. S/P gastric sleeve procedure 9. BMI 50.0-59.9, adult (HCC) 10. Fatty (change of) liver, not elsewhere classified PLAN 1). Compliance with exercise and dietary regimen (see dietitian recommendations) 2). Patient to follow up w/ PCP for follow for management of DM and HTN medications 3). Follow up for 1 month post-operative evaluation 4). Advance diet and begin supplements per RD note 5). HTN 6). KISHOR 7). HLD Additional orders: 1 month lab-work Orders Placed This Encounter Procedures Zinc Folate Iron Ferritin Magnesium Vitamin B12 Comprehensive metabolic panel CBC Vitamin B1, whole blood ATTESTATION I personally interviewed and examined the patient. I have reviewed their past medical, surgical, medication, allergy, social and family histories. I have performed an independent physical examination and have reviewed all pertinent laboratory and imaging results. I have reviewed with the patient my assessment of their condition as well as the treatment recommendations and the associated risks, benefits and options. I have spent a total of 30 minutes for this office visit in [id number] discussion, counseling of this patient, reviewing medical records and documenting the encounter. MOY MD, FACS, [facility] Mattress Specialist - Weight Management [place] [facility] Load Builder - Advanced GI MIS, Foregut and Bariatric Surgery Fellowship ---[facility]--- Patient Care Team: Arthur Gamez MD as PCP - General (Family Medicine) Asad Moy MD as Surgeon (General Surgery) Abelardo Charlton (Internal Medicine) Joseph. Meraz (Oncology) Radha Sterling, RN as Registered Nurse [facility] [place] POST WEIGHT LOSS SURGERY FOLLOW UP - 1 WEEK Rooming Note Patient: Mirlande Beltrán Service Date: 08/09/2023 Patient is 1 week s/p Lap Sleeve Gastrectomy Post-Surgical Weight Loss Date: 08/09/23 Height: 5' 3.75 (161.9 cm) Weight: 294 lb 12.8 oz (134 kg) BMI: 50.99 Weight Change: -28.4 lbs Total Weight Change: -28.4 lbs % EBWL: 14% Comments: 1W Pain: Patient rates pain on scale 0-10 as: 2 Patient has the following questions: several questions written down Patient is not diabetic If patient IS Diabetic: Patient spoken with the physician who prescribes their diabetic medications Patient resumed their diabetic medications as directed by their physician Patient advised as follows by physician prescribing diabetic medications: Exercise Compliance: Compliance with recommended current exercise plan of walking/frequent ambulation: yes Falls Risk Assessment Patient does take medications which affect BP or mental status Patient does not have newly prescribed or changed dosage of medications within past 30 days which affect BP or mental status Patient has not fallen in the past 2 months Patient does not demonstrate unsteady gait Patient uses the following ambulatory assistive devices: cane Patient states the presence of the following traits which increases risk of fall: knee pain Patient is moderate risk for falls. If high or moderate risk, patient instructed not to ambulate independently in the Center, and cord for call light placed within reach of patient. Post-op Weight Metrics: %EBWL: % EBWL: 14% Weight Change Since Last Visit: Weight Change: -28.4 lbs Weight Change from Highest Pre-op Weight: Total Weight Change: -28.4 lbs Completed by: Ashlyn Lind LPN [facility] 1 WEEK VISIT POST-OPERATIVE DIETITIAN Date: 08/09/23 Pt is here for 1 week office visit. Pt is currently on a full liquid diet. Pt will advance to a pureed diet today and follow the diet for 10 days. Then, the pt will advance to a soft diet for 2 weeks. Both of these diets have been reviewed with the pt today. Protein requirements discussed. Patient to consume 65-75 grams daily. Fluid requirements discussed. Patient to consume 64 oz+ daily. Patient is aware that she must consume fluids 30 mintues before and after meals. Exercise activities discussed with the patient. She doeshave a plan for exercise when cleared. Patient advised that regular exercise is vital to a successful outcome following weight loss surgery. Behavioral/Emotional changes reviewed Patient does feel comfortable with changes in eating behaviors and associated emotional changes. She was reminded that psychological counseling is available through the Bariatric Care Center post-operatively. The importance of vitamin supplementation has been discussed with patient. She will start the following vitamin supplements today: -Multivitamin with minerals and iron -Calcium -Vitamin B12 -Vitamin D3 -Other: Recent Nutrient Concerns and Vitamin Supplementation Changes: Start today Notes/Comments: Pt is doing great overall! Pt to call as needed with any issues or concerns that arise. Visit completed by: Nadira Winn RD documented in this encounter [facility] 08-04-2023 Note Discharge Summary Mirlande Beltrán : 1955 ADMIT DATE: 08/03/2023 DISCHARGE DATE: 08/04/23 ATTENDING PHYSICIAN: Wanda att. providers found VISIT STATUS: Admission CODE STATUS: Prior DISCHARGE DIAGNOSES: Principal Problem: Morbid obesity, unspecified obesity type (HCC) Active Problems: Back pain GERD (gastroesophageal reflux disease) Hyperlipidemia Hypertension Sleep apnea MGUS (monoclonal gammopathy of unknown significance) Paroxysmal atrial fibrillation (HCC) KISHOR (obstructive sleep apnea) Deficiency of multiple nutrient elements NSTEMI (non-ST elevated myocardial infarction) (CMS/HCC) ([facility]) BMI Classification: Estimated body mass index is 50.75 kg/m? as calculated from the following: Height as of this encounter: 5' 5 (1.651 m). Weight as of this encounter: 305 lb (138 kg). Morbidly Obese (>40.0) HOSPITAL COURSE: Mirlande Beltrán is a 68 y.o. female who presented to [facility] on 08/03/2023 for elective bariatric surgical procedure. This patient underwent a robotic sleeve gastrectomy on the day of admission. An UGI was obtained POD #1 and bariatric clear liquid diet was subsequently started. The patient met with bariatric nursing team and was informed thoroughly regarding goals and objectives going forward regarding bariatric protocol and expectations. They were prepared for discharge POD #1 At the time of discharge patient's vital signs were within normal limits. Patient was voiding spontaneously, tolerating a diet, ambulating independently and having bowel function. Patient's pain was controlled with PO pain meds. Pt was discharged with instructions as follows. CONSULTANTS: none SIGNIFICANT DIAGNOSTIC STUDIES: Upper GI contrast study showing no extravasation or obstruction DISCHARGE MEDICATIONS: Medication List CONTINUE taking these medications acetaminophen 500 MG tablet Commonly known as: Tylenol CALCIUM-CARB 600 PO CareTouch CPAP & BIPAP Hose misc cholecalciferol 250 MCG (16919 UT) capsule Commonly known as: Vitamin D-3 Eliquis 5 MG tablet Generic drug: apixaban furosemide 40 MG tablet Commonly known as: Lasix HYDROcodone-acetaminophen 5-325 MG tablet Commonly known as: [place] lisinopril 20 MG tablet Multivitamin Adult (Minerals) tablet omeprazole [address] capsule Commonly known as: PriLOSEC rOPINIRole 3 MG tablet Commonly known as: Requip rosuvastatin 40 MG tablet Commonly known as: Crestor sotalol 80 MG tablet Commonly known as: Betapace ursodiol 300 MG capsule Commonly known as: Actigall Take 1 capsule (300 mg) by mouth 2 times daily. ZyrTEC ALLERGY 10 MG capsule Generic drug: Cetirizine HCl ASK your doctor about these medications ondansetron 4 MG tablet Commonly known as: Zofran Take 1 tablet (4 mg) by mouth every 8 hours as needed for nausea or vomiting for up to 7 days. Ask about: Should I take this medication? oxyCODONE-acetaminophen 5-325 MG tablet Commonly known as: Percocet Take 1 tablet by mouth every 6 hours as needed for severe pain (7-10) for up to 7 days. Ask about: Should I take this medication? Where to Get Your Medications These medications were sent to [facility] [address] [place] [id number] Hours: Monday to Monday 10 am to 6 pm ondansetron 4 MG tablet oxyCODONE-acetaminophen 5-325 MG tablet DIET: Bariatric Diet Protocol with Clears, instruction for continued diet included in discharge instructions. ACTIVITY: No driving while on narcotic pain medication. No heavy lifting. No strenuous activity. Instructions to proceed will be provided during outpatient follow up. WOUND CARE: keep wound clean and dry DISPOSITION: Home FACILITY/HOME CARE AGENCY NAME: N/A Follow up with: No att. providers found in 1-2 weeks PCP: Arthur Gamez MD in 1-2 weeks SIGNED: Mukul Guaman MD This note may have been dictated using [facility] Medical Practice Edition 2.6 and/or [employer] Voice Recognition Feature. The document was proofread; however, unrecognized voice recognition vp business development errors may be present. [facility] 08-04-2023 Nurse Note Home going instructions given, patient verbalizes understanding. Prescriptions with patient from meds to beds. Discharged home [facility] 08-04-2023 Nurse Note Home going instructions given, patient verbalizes understanding. Prescriptions with patient from meds to beds. Discharged home documented in this encounter [facility] 08-03-2023 Note Patient: Mirlande Espinal learning and development manager Summary Date: 08/03/23 Room / Location: [address] Operating Room Anesthesia Start: 1238 Anesthesia Stop: 1448 Procedure: ROBOTIC SLEEVE GASTRECTOMY WITH LIVER WEDGE BIOPSY AND EGD. (Abdomen) Diagnosis: Morbid (severe) obesity due to excess calories (HCC) (Morbid (severe) obesity due to excess calories (HCC) [E66.01]) Surgeons: Asad Moy MD Responsible Provider: Teo Perla MD Anesthesia Type: general, regional ASA Status: 3 Anesthesia Type: general, regional Vitals Value Taken Time BP 139/65 08/03/23 1445 Temp 97.7 08/03/23 1449 Pulse 62 08/03/23 1447 Resp 16 08/03/23 1449 SpO2 100 % 08/03/23 1447 Vitals shown include unfiled device data. Anesthesia Post Evaluation Patient location during evaluation: PACU Patient participation: complete - patient participated Level of consciousness: awake and alert Pain management: satisfactory to patient Airway patency: patent Dental Injury: no Cardiovascular status: acceptable, blood pressure returned to baseline and hemodynamically stable Respiratory status: acceptable, spontaneous ventilation and face mask Hydration status: euvolemic Nausea/Vomiting: controlled No notable events documented. Patient can be discharged once all PACU criteria has been met. 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 (Abdomen) Diagnosis: Morbid (severe) obesity due to excess calories (HCC) (Morbid (severe) obesity due to excess calories (HCC) [E66.01]) Surgeons: Asad Moy MD Responsible Provider: Teo Perla MD Anesthesia Type: general, regional ASA Status: 3 Anesthesia Type: general, regional Vitals Value Taken Time BP 139/65 08/03/23 1445 Temp 97.7f 08/03/23 1448 Pulse 62 08/03/23 1447 Resp 20 08/03/23 1448 SpO2 100 % 08/03/23 1447 Vitals shown include unfiled device data. Anesthesia Post Evaluation Patient location during evaluation: PACU Patient participation: complete - patient participated Level of consciousness: awake and alert Pain management: satisfactory to patient Multimodal analgesia pain management approach Airway patency: patent Two or more strategies used to mitigate risk of obstructive sleep apnea Cardiovascular status: acceptable and hemodynamically stable Respiratory status: acceptable and face mask Hydration status: acceptable No notable events documented. MIPS #430 PONV Patient received an inhalational anesthetic (4554F) Patient exhibits three or more risk factors for PONV (4556F) Patient received at leaset 2 prophylactic Rx PONV anti-emtic agents of different classes preop and/or intraop (G9775) MIPS # 424 Perioperative Temperature Management Anesthesia time was 60 minutes or longer (4255F) Anesthesai administered was General (inhalational or TIVA) or Neuraxial block (X0424) At least one body temperature greater than 95.8F/35.5C achieved within the 30 mins immediately prior to or the 15 minutes immediately following anesthesia end time (G9771) MIPS #477 Multimodal Pain Management Not emergent case Patient was administered multimodal pain management (two or more drugs and/or interventions excluding systemic opioids) in the periopeartive period occurring at some time between 6 hours prior to anesthesia start time until discharged from PACU (G2148) [facility] #404 Anesthesiology Smoking Abstinence The patient is not a current smoker (e.g. cigarette, cigar, pipe, e-cigarette/vaping/marijuana) If no stop here (G9644) I completed my handoff to the receiving clinician during which we: 1. Identified the patient 2. Identified the responsible provider 3. Reviewed the pertinent medical history 4. Discussed the surgical course 5. Reviewed intra-op anesthesia management and issues during anesthesia 6. Set expectations for post-procedure period 7. Allowed opportunity for questions and acknowledgement of understanding. [facility] 08-03-2023 Note Formatting of this n ote might be different from the original. Family updated via phone call regarding update on patients status. [facility] 08-03-2023 Note Formatting of this n ote might be different from the original. Family updated via phone call regarding update on patients status. [facility] 08-03-2023 Miscellaneous Notes Family updated via phone call regarding update on patients status. IV x2 attempt unsuccessful, paged ultrasound to start IV. documented in this encounter [facility] 08-03-2023 Note Airway Date/Time: 08/03/2023 12:47 PM Urgency: scheduled Airway not difficult General Information and Staff Patient location during procedure: Procedural Resident/FELT CUTTING MACHINE OPERATOR: CLAUDY Rockwell CRNA Performed: SRNA Performed by: CLAUDY Rockwell CRNA Authorized by: CLAUDY Rockwell CRNA Indications and Patient Condition Indications for airway management: anesthesia Sedation level: Asleep Preoxygenated: yes Patient position: ramp Mask difficulty assessment: 1 - vent by mask Final Airway Details Final airway type: endotracheal airway Successful airway: ETT Cuffed: yes Successful intubation technique: direct laryngoscopy Facilitating devices/methods: intubating stylet Endotracheal tube insertion site: oral Blade: Marianna Blade size: #3 ETT size (mm): 8.0 Cormack-Lehane Classification: grade I - full view of glottis Placement verified by: capnometry Measured from: lips ETT to lips (cm): 22 Number of attempts at approach: 1 [facility] 08-03-2023 Note Peripheral Block Time Out: 08/03/2023 12:45 PM Patient location during procedure: Procedural Start time: 08/03/2023 12:46 PM End time: 08/03/2023 12:49 PM Reason for block: at surgeon's request and post-op pain management Staffing Performed: FELT CUTTING MACHINE OPERATOR Resident/FELT CUTTING MACHINE OPERATOR: CLAUDY Díaz CRNA Preanesthetic Checklist Completed: patient identified, IV checked, site marked, risks and benefits discussed, surgical consent, monitors and equipment checked, pre-op evaluation and timeout performed Region: [place] Primary: TAP (Bupivacaine 0.375%/ Epi 1:200,000/ Dex 0.1mg/mL 40ml divided evenly bilateral) Secondary: Upper rectus (Bupivacaine 0.375%/ Epi 1:200,000/ Dex 0.1mg/mL 20ml divided evenly bilateral) Peripheral Block Patient position: supine Prep: ChloraPrep Patient monitoring: heart rate, media monitor, continuous pulse ox and continuous capnometry O2: ETT/LMA Laterality: bilateral Injection technique: single-shot Guidance: ultrasound guided -image retained in chart, tip of the needle identified by ultraound during injection. Needle Needle: 21G X 110 mm Additional Notes 08/03/2023 12:46 PM Assessment Injection assessment: negative aspiration for heme, no paresthesia on injection and incremental injection Heart rate change: no Slow fractionated injection: yes Required Documentation: Relevant anatomy identified (Nerves, Vessels, Muscles), Negative for blood on aspiration, Local anesthetic injected incrementally with intermittent aspiration every 5 mL, Normal resistance with injection, No EKG changes noted, No symptoms of toxicity, Local anesthetic spread visualized around nerves or plane. and Local anesthetic injected without difficultyMedications [id number]-fymzwprkijj-[id number] hrine (TAP) syringe - Injection 60 mL - 08/03/2023 12:46:00 PM [facility] 08-03-2023 Note H&P Interval Update PATIENT SUMMARY Mirlandehortencia Moy 67 y.o. female with Body mass index is 55.91 kg/m?. ROBOTIC SLEEVE GASTRECTOMY - aka SG Procedure DM[] HTN[x] KISHOR[x] GERD[] HL[x] OA[] TOB[] Date of Surgery: 08/03/23 NOTES AD Pt taking semiglutide. 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 The patient was seen and examined. There has been no change in the management plan. [facility] 08-03-2023 Attending History and physical note H&P Interval Update PATIENT SUMMARY Mirlande Moy 67 y.o. female with Body mass index is 55.91 kg/m . ROBOTIC SLEEVE GASTRECTOMY - aka SG Procedure DM[] HTN[x] KISHOR[x] GERD[] HL[x] OA[] TOB[] Date of Surgery: 08/03/23 NOTES AD Pt taking semiglutide. 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 The patient was seen and examined. There has been no change in the management plan. Source Note - Asad Moy MD - 07/26/2023 10:15 AM EST Images from the original note were not included. ASAD MOY MD , FACS, FASMBS MINIMALLY INVASIVE & METABOLIC / BARIATRIC SURGERY [facility] - FINAL PRE-OP VISIT 07/26/2023 PATIENT: Mirlande Beltrán DATE OF : 1955 - HISTORY OF PRESENT ILLNESS Chief Complaint: Morbid Obesity and here for final preoperative evaluation, informed consent and discussion of work-up results. Mirlande Beltrán is a 68 y.o. female with morbid obesity and associated comorbid conditions who [facility] for final pre-operative evaluation and for discussion of the preoperative testing results. A discussion of the risks, benefits and options of the planned procedure was also held and all questions were answered to the patient's satisfaction. The patient stands Height: 5' 3.75 (161.9 cm) tall with a weight of Weight: (!) 305 lb 9.6 oz (139 kg) , and has a BMI of Body mass index is 52.87 kg/m . PATIENT SUMMARY Mirlande Beltrán Dr. Moy 67 y.o. female with Body mass index is 55.91 kg/m . ROBOTIC SLEEVE GASTRECTOMY - aka SG Procedure DM[] HTN[x] KISHOR[x] GERD[] HL[x] OA[] TOB[] Date of Surgery: 08/03/23 NOTES AD Pt taking semiglutide. 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 Pathology [x] H. pylori [x] Negative [] Positive 02/21/23 UGI [x] [] not ordered 04/05/23 normal US Abdomen [x] [] not ordered 04/05/23 small amt GB sludge KISHOR eval [x] [x] On CPAP / Obtain settings 17/11 CM H20 Hematology [] [] Hypercoagulation panel Toxicology [] [] Urine drug screen [] EtOH screen Addtional [] [] Hgb A1c 03/23/23 5.3 INITIAL CONSULTATIONS CLEARANCE / MANAGEMENT Psychology [x] Dr. Carolina Initial 04.28.2023; CLEARED 06.07.2023 Dietitian [x] Monica Tolentino, MS, RD, CSSD, LD Cleared 02/10/2023 Cardiology [x] [] not ordered DR RACHEL Yadav Cleared march 14. Hold eliquis 2 days prior Pulmonary [x] [] not ordered DR Abelardo Asencio. 04/17/23 cleared. Others [x] [x]Heme/Onc []Psychiatry []Pain mgmt DR Mariya Asencio. Ok for surgery, office note of 03/21/23 PSD [] Physician supervised diet: []None [x]3 mos []6 mos Preop diet [] Preop low calory diet: []None [x]1 wk []2 wks []Ext. FINAL PRE-OP TESTING RESULTS Labwork [x] [x]Pre-op CBC [x]BMP []Serum Nicotine / Cotinine EKG [x] CXR [x] POST-OP MEDICATIONS Ulcer Ppx [x] Omeprazole 20 mg PO [x]QD []BID Gallstone Ppx [x] Ursodiol 300 mg [x]BID DVT Ppx [] DVT prophylaxis per final preop visit estimated risk Estimated calculated risk: 0.52% TO MEDICARE REVIEW 06/07/23 YVAN Prior Auth Request Submitted: YVAN Prior Auth Approval Received: MEDICARE APPROVED 06/07/23 DVT PPX Risk Factors [] Male [x] Age >= 60 years [x] BMI >= 50 kg/m^2 [] CHF [] Dyspnea at Rest [] Paraplegia [x] Non-Gastric Band Surgery [] Anticipate Operative Time > 3 hours [] Anticipate Length of Stay >3 days Automatic 4 Weeks of Therapy [] Congenital or Acquired Hypercoagulable Conditions (Factor V Leiden, Prothrombin) [] Past History of DVT or PE [] Significant Chronic Venous Insufficiency Calculated Risk Score: 0.52 Risk % Weeks </> BMI 50 SQ Dose [] Moderate <0.4% 0 None [x] High Risk 0.4% - 1% 2 [] 40 mg Lovenox BID [x] 60 mg Lovenox BID [] Very High Risk >1% 4 [] 40 mg Lovenox BID [] 60 mg Lovenox BID Review of Symptoms Constitutional: negative for chills, fevers, night sweats Respiratory: negative for cough, dyspnea on exertion, hemoptysis, and sputum Cardiovascular: negative for chest pain, chest pressure/discomfort, dyspnea, irregular heart beat, palpitations, and syncope Gastrointestinal: negative for abdominal pain, constipation, diarrhea, dysphagia, melena, reflux symptoms, and vomiting Neurological: negative for dizziness, paresthesia, seizures, and weakness PAST HISTORIES Past Medical History: Diagnosis Date Atrial fibrillation (HCC) Back pain COVID-19 vaccine series declined GERD (gastroesophageal reflux disease) Hyperlipidemia Hypertension Joint pain Myocardial infarction (HCC) Sleep apnea Snoring SOB (shortness of breath) on exertion Past Surgical History: Procedure Laterality Date ADENOIDECTOMY APPENDECTOMY 1970 W CYST REMOVAL CARDIAC CATHETERIZATION 2020 CARDIOVERSION 2022 COLONOSCOPY 02/21/2023 Dr Soares. sigmoid polyp, diverticula. CYST REMOVAL Right 1971 W APPENDECTOMY EGD (HISTORICAL) 02/21/2023 DR Soares- esophagitis, Schatzki's ring, sm amount of food. TONSILLECTOMY Family History Problem Relation Name Age of Onset Cancer Mother Cancer Father Stroke Father Heart disease Father Hypertension Father Hypertension Brother Heart disease Brother Diabetes Brother Obesity Brother Diabetes Paternal Grandmother Cancer Maternal Grandmother Allergies Allergen Reactions Metoprolol Other Extreme fatigue Pcn [Penicillins] Rash PHYSICAL EXAM BP 122/72 Pulse 71 Temp 36.3 C (97.3 F) Resp 16 Ht 5' 3.75 (1.619 m) Wt (!) 305 lb 9.6 oz (139 kg) BMI 52.87 kg/m General: This patient is awake, alert, and oriented, with normal affect and is in no apparent distress. Cardiac: Regular rate and rhythm without evidence of murmur. Respiratory: Clear to auscultation bilaterally with normal effort. Abdomen: Obese, soft, non-tender, non-distended without masses/ No evidence of abdominal hernia / Incisions consistent with previous surgeries. Surgical sites: Clean dry and intact Head and Neck: Obese, normocephalic and atraumatic/soft and supple, no lymphadenopathy or obvious bruits. No thyroidmegaly. Extremities: No cyanosis, clubbing or edema/ No calf tenderness/No restrictions of movement, is ambulatory without assistance. Neurological: Intact x 4 extremities, normal sensation, no focal deficits notes. Skin: Skin cool, warm and dry. No rashes or lesions noted. Rectal: Deferred LABORATORY STUDIES AND IMAGING Laboratory Studies: Recent Labs 07/24/23 1132 NA 134* K 5.1 CL 100 CO2 24 BUN 33* CREATININE 0.80 GLUCOSE 88 CALCIUM 10.3 Recent Labs 07/24/23 1132 WBC 9.4 RBC 4.63 HGB 13.6 HCT 39.8 MCV 86.0 MCH 29.3 MCHC 34.1 RDW 14.2 PLT 284 MPV 9.9 No results for input(s): ALKPHOS , ALT , AST , PROT , BILITOT , BILIDIR , LIPASE in the last 72 hours. No lab exists for component: LABALBU ASSESSMENT Encounter Diagnoses Name Primary? KISHOR (obstructive sleep apnea) Yes Primary hypertension Gastroesophageal reflux disease, unspecified whether esophagitis present Hyperlipidemia, unspecified hyperlipidemia type Back pain, unspecified back location, unspecified back pain laterality, unspecified chronicity Morbid obesity with BMI of 50.0-59.9, adult (HCC) Paroxysmal atrial fibrillation (HCC) Biliary sludge In anticipation of weight reductive surgery now or in the future, we spent a great deal of time discussing the risks and benefits of , including but not limited to injury to intra-abdominal organs, breakdown of the gastric staple line, the need for re-operative therapy, prolonged hospitalization, mechanical ventilation, and . We discussed the possibility of bleeding, the need for blood transfusions, blood clots, hospital-acquired and intra-abdominal infection, anastomotic stricture, and worsening GERD. And we discussed the need for post-operative visit compliance, behavior modifications and diet changes, protein and vitamin supplementation, as well as routine scheduled and dedicated exercise. We discussed the potential weight loss benefit of approximately 60-70% of the excess body weight at 12-18 months post-op, as well as the possibility of insufficient weight loss or weight gain. PLAN Based on today's evaluation, the patient is ready to proceed with SLEEVE GASTRECTOMY - aka SG as detailed above. No orders of the defined types were placed in this encounter. ATTESTATION I personally interviewed and examined the patient. I have reviewed their past medical, surgical, medication, allergy, social and family histories. I have performed an independent physical examination and have reviewed all pertinent laboratory and imaging results. I have reviewed with the patient my assessment of their condition as well as the treatment recommendations and the associated risks, benefits and options. I have spent a total of 30 minutes for this office visit in [id number] discussion, counseling of this patient, reviewing medical records and documenting the encounter. MOY MD, [facility], [facility] Mattress Specialist - Weight Management [place] / [facility] Load Builder - Advanced GI MIS, Foregut and Bariatric Surgery Fellowship ---[facility]--- Patient Care Team: Arthur Gamez MD as PCP - General (Family Medicine) Asad Moy MD as Surgeon (General Surgery) Abelardo Charlton (Internal Medicine) Joseph. Meraz (Oncology) Radha Sterling, RN as Registered Nurse [place] [employer] Work Phone: 08-03-2023 History and physical note H&P Interval Update PATIENT SUMMARY Mirlande Moy 67 y.o. female with Body mass index is 55.91 kg/m . ROBOTIC SLEEVE GASTRECTOMY - aka SG Procedure DM[] HTN[x] KISHOR[x] GERD[] HL[x] OA[] TOB[] Date of Surgery: 08/03/23 NOTES AD Pt taking semiglutide. 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 The patient was seen and examined. There has been no change in the management plan. Source Note - Asad Moy MD - 07/26/2023 10:15 AM EST Images from the original note were not included. ASAD MOY MD , FACS, [facility] MINIMALLY INVASIVE & METABOLIC / BARIATRIC SURGERY [facility] - FINAL PRE-OP VISIT 07/26/2023 PATIENT: Mirlande Beltrán DATE OF : 1955 - HISTORY OF PRESENT ILLNESS Chief Complaint: Morbid Obesity and here for final preoperative evaluation, informed consent and discussion of work-up results. Mirlande Beltrán is a 68 y.o. female with morbid obesity and associated comorbid conditions who presents [facility] for final pre-operative evaluation and for discussion of the preoperative testing results. A discussion of the risks, benefits and options of the planned procedure was also held and all questions were answered to the patient's satisfaction. The patient stands Height: 5' 3.75 (161.9 cm) tall with a weight of Weight: (!) 305 lb 9.6 oz (139 kg) , and has a BMI of Body mass index is 52.87 kg/m . PATIENT SUMMARY Mirlande Beltrán Dr. Moy 67 y.o. female with Body mass index is 55.91 kg/m . ROBOTIC SLEEVE GASTRECTOMY - aka SG Procedure DM[] HTN[x] KISHOR[x] GERD[] HL[x] OA[] TOB[] Date of Surgery: 08/03/23 NOTES AD Pt taking semiglutide. 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 Pathology [x] H. pylori [x] Negative [] Positive 02/21/23 UGI [x] [] not ordered 04/05/23 normal US Abdomen [x] [] not ordered 04/05/23 small amt GB sludge KISHOR eval [x] [x] On CPAP / Obtain settings 17/11 CM H20 Hematology [] [] Hypercoagulation panel Toxicology [] [] Urine drug screen [] EtOH screen Addtional [] [] Hgb A1c 03/23/23 5.3 INITIAL CONSULTATIONS CLEARANCE / MANAGEMENT Psychology [x] Dr. Carolina Initial 04.28.2023; CLEARED 06.07.2023 Dietitian [x] Monica Tolentino MS, RD, CSSD, LD Cleared 02/10/2023 Cardiology [x] [] not ordered DR RACHEL Yadav Cleared march 14. Hold eliquis 2 days prior Pulmonary [x] [] not ordered DR Abelardo Asencio. 04/17/23 cleared. Others [x] [x]Heme/Onc []Psychiatry []Pain mgmt DR Mariya Asencio. Ok for surgery, office note of 03/21/23 PSD [] Physician supervised diet: []None [x]3 mos []6 mos Preop diet [] Preop low calory diet: []None [x]1 wk []2 wks []Ext. FINAL PRE-OP TESTING RESULTS Labwork [x] [x]Pre-op CBC [x]BMP []Serum Nicotine / Cotinine EKG [x] CXR [x] POST-OP MEDICATIONS Ulcer Ppx [x] Omeprazole 20 mg PO [x]QD []BID Gallstone Ppx [x] Ursodiol 300 mg [x]BID DVT Ppx [] DVT prophylaxis per final preop visit estimated risk Estimated calculated risk: 0.52% TO MEDICARE REVIEW 06/07/23 YVAN Prior Auth Request Submitted: YVAN Prior Auth Approval Received: MEDICARE APPROVED 06/07/23 DVT PPX Risk Factors [] Male [x] Age >= 60 years [x] BMI >= 50 kg/m^2 [] CHF [] Dyspnea at Rest [] Paraplegia [x] Non-Gastric Band Surgery [] Anticipate Operative Time > 3 hours [] Anticipate Length of Stay >3 days Automatic 4 Weeks of Therapy [] Congenital or Acquired Hypercoagulable Conditions (Factor V Leiden, Prothrombin) [] Past History of DVT or PE [] Significant Chronic Venous Insufficiency Calculated Risk Score: 0.52 Risk % Weeks </> BMI 50 SQ Dose [] Moderate <0.4% 0 None [x] High Risk 0.4% - 1% 2 [] 40 mg Lovenox BID [x] 60 mg Lovenox BID [] Very High Risk >1% 4 [] 40 mg Lovenox BID [] 60 mg Lovenox BID Review of Symptoms Constitutional: negative for chills, fevers, night sweats Respiratory: negative for cough, dyspnea on exertion, hemoptysis, and sputum Cardiovascular: negative for chest pain, chest pressure/discomfort, dyspnea, irregular heart beat, palpitations, and syncope Gastrointestinal: negative for abdominal pain, constipation, diarrhea, dysphagia, melena, reflux symptoms, and vomiting Neurological: negative for dizziness, paresthesia, seizures, and weakness PAST HISTORIES Past Medical History: Diagnosis Date Atrial fibrillation (HCC) Back pain COVID-19 vaccine series declined GERD (gastroesophageal reflux disease) Hyperlipidemia Hypertension Joint pain Myocardial infarction (HCC) Sleep apnea Snoring SOB (shortness of breath) on exertion Past Surgical History: Procedure Laterality Date ADENOIDECTOMY APPENDECTOMY 1970 W CYST REMOVAL CARDIAC CATHETERIZATION 2020 CARDIOVERSION 2022 COLONOSCOPY 02/21/2023 Dr Soares. sigmoid polyp, diverticula. CYST REMOVAL Right 1970 W APPENDECTOMY EGD (HISTORICAL) 02/21/2023 DR Soares- esophagitis, Schatzki's ring, sm amount of food. TONSILLECTOMY Family History Problem Relation Name Age of Onset Cancer Mother Cancer Father Stroke Father Heart disease Father Hypertension Father Hypertension Brother Heart disease Brother Diabetes Brother Obesity Brother Diabetes Paternal Grandmother Cancer Maternal Grandmother Allergies Allergen Reactions Metoprolol Other Extreme fatigue Pcn [Penicillins] Rash PHYSICAL EXAM BP 122/72 Pulse 71 Temp 36.3 C (97.3 F) Resp 16 Ht 5' 3.75 (1.619 m) Wt (!) 305 lb 9.6 oz (139 kg) BMI 52.87 kg/m General: This patient is awake, alert, and oriented, with normal affect and is in no apparent distress. Cardiac: Regular rate and rhythm without evidence of murmur. Respiratory: Clear to auscultation bilaterally with normal effort. Abdomen: Obese, soft, non-tender, non-distended without masses/ No evidence of abdominal hernia / Incisions consistent with previous surgeries. Surgical sites: Clean dry and intact Head and Neck: Obese, normocephalic and atraumatic/soft and supple, no lymphadenopathy or obvious bruits. No thyroidmegaly. Extremities: No cyanosis, clubbing or edema/ No calf tenderness/No restrictions of movement, is ambulatory without assistance. Neurological: Intact x 4 extremities, normal sensation, no focal deficits notes. Skin: Skin cool, warm and dry. No rashes or lesions noted. Rectal: Deferred LABORATORY STUDIES AND IMAGING Laboratory Studies: Recent Labs 07/24/23 1132 NA 134* K 5.1 CL 100 CO2 24 BUN 33* CREATININE 0.80 GLUCOSE 88 CALCIUM 10.3 Recent Labs 07/24/23 1132 WBC 9.4 RBC 4.63 HGB 13.6 HCT 39.8 MCV 86.0 MCH 29.3 MCHC 34.1 RDW 14.2 PLT 284 MPV 9.9 No results for input(s): ALKPHOS , ALT , AST , PROT , BILITOT , BILIDIR , LIPASE in the last 72 hours. No lab exists for component: LABALBU ASSESSMENT Encounter Diagnoses Name Primary? KISHOR (obstructive sleep apnea) Yes Primary hypertension Gastroesophageal reflux disease, unspecified whether esophagitis present Hyperlipidemia, unspecified hyperlipidemia type Back pain, unspecified back location, unspecified back pain laterality, unspecified chronicity Morbid obesity with BMI of 50.0-59.9, adult (HCC) Paroxysmal atrial fibrillation (HCC) Biliary sludge In anticipation of weight reductive surgery now or in the future, we spent a great deal of time discussing the risks and benefits of , including but not limited to injury to intra-abdominal organs, breakdown of the gastric staple line, the need for re-operative therapy, prolonged hospitalization, mechanical ventilation, and . We discussed the possibility of bleeding, the need for blood transfusions, blood clots, hospital-acquired and intra-abdominal infection, anastomotic stricture, and worsening GERD. And we discussed the need for post-operative visit compliance, behavior modifications and diet changes, protein and vitamin supplementation, as well as routine scheduled and dedicated exercise. We discussed the potential weight loss benefit of approximately 60-70% of the excess body weight at 12-18 months post-op, as well as the possibility of insufficient weight loss or weight gain. PLAN Based on today's evaluation, the patient is ready to proceed with SLEEVE GASTRECTOMY - aka SG as detailed above. No orders of the defined types were placed in this encounter. ATTESTATION I personally interviewed and examined the patient. I have reviewed their past medical, surgical, medication, allergy, social and family histories. I have performed an independent physical examination and have reviewed all pertinent laboratory and imaging results. I have reviewed with the patient my assessment of their condition as well as the treatment recommendations and the associated risks, benefits and options. I have spent a total of 30 minutes for this office visit in [id number] discussion, counseling of this patient, reviewing medical records and documenting the encounter. MOY MD, [facility], [facility] Mattress Specialist - Weight Management [place] [facility] Load Builder - Advanced GI MIS, Foregut and Bariatric Surgery Fellowship ---[facility]--- Patient Care Team: Arthur Gamez MD as PCP - General (Family Medicine) Asad oMy MD as Surgeon (General Surgery) Abelardo Charlton (Internal Medicine) Joseph. Meraz (Oncology) Radha Sterling RN as Registered Nurse documented in this encounter [facility] 08-03-2023 Hospital Discharg e instructions Nadira Winn RD - 08/03/2023 10:58 AM EST Postoperative Patient Instructions Laparoscopic Sleeve Gastrectomy Procedure If your surgical incisions are covered with steri-strips (white paper tape), leave them in place. It is ok if they fall off on their own. If your incisions have danny, they will be removed at your next office visit with your surgeon. If you feel the danny are catching or rubbing on your abdominal binder or clothing, you may place a BAND-AID over them. Wear your elastic abdominal binder as you desire for comfort. Take your temperature twice a day for the first postoperative week. Call if temperature is greater than 101 F. A fever could be a sign of infection or surgical complication. You may shower at any point. Wash your incisions with the Hibiclens you bought before surgery or Dial. Use only soap and water on the sites and blot the incisions dry. Do not use ointments, lotions or powders. If incisions begin to look infected (redness, swelling, drainage, pain), notify your canvas shrinker. Resume your home medications as directed by your surgeon and your nurse social work case manager. Make an appointment with your prescribing physician if you are taking medication for your blood pressure or diabetes. You will need close follow-up regarding your medical conditions, as you will soon be off many of these medications. No aspirin or aspirin containing medications should be taken at all, unless directed otherwise by your surgeon. Follow our food guidelines closely. Remember, clear liquids for the first two days after surgery. No sugar, caffeine or carbonation. Your fluid requirement is 64 oz. per day. You may advance to full liquids on post- op day three. This is in addition to the clear liquid diet. Do not take your calcium, vitamin B12, multivitamin or Actigall (if ordered) until after your one week appointment. All proton pump inhibitor medication (Prilosec, Protonix etc.), should be taken starting the day after you are discharged home. Take daily. No alcoholic beverages at all during the first 18 months post-op. No lifting. pushing, or pulling over 15 lbs. for one month You may go up and down stairs. No driving for one week after surgery. Do not drive if you are taking prescription pain medication. Walking as part of your daily activities is required immediately. It is recommended that you should walk for 5 minutes every hour you are awake to help decrease the risk of blood clots after surgery. Walking helps prevent blood clots from forming. A blood clot that forms in your legs or arms is called Deep Vein Thrombosis (DVT). Signs of DVT include pain, redness, swelling and warmth. A blood clot that travels to your lungs is called a Pulmonary Embolism (PE). Symptoms of PE include shortness of breath, pain with breathing, chest pain/discomfort or rapid heartbeat. You will be able to begin exercising in four to six weeks but must be cleared by your surgeon at your one-month appointment. Use your incentive spirometer from the hospital for the first postoperative week as instructed. Use it ten times every other hour while awake. Prior to returning to work, you will be seen, evaluated and cleared by your surgeon. Remember, you will have pain. Take your pain medicine so that you are comfortable enough to cough, take deep breaths and walk. Fatigue is quite common in the first postoperative week. Rest appropriately in response to this fatigue. Remember that mobility after surgery is very important. You must not remain in a sitting or recumbent position for long periods of time. If you have obstructive sleep apnea and have been prescribed a CPAP machine, you must continue to use this device after surgery. Please call the [facility] at [phone] if you have any questions or concerns during business hours: Monday through Monday, 8 a.m. to 4:30 p.m. The answering service may be called during non- business hours at [phone]. Call your surgeon for problems, or if you have any of the following: Temperature greater than 101 F. Take your temperature twice a day in the morning and evening until your first office visit Redness, pain, swelling or drainage from any of the incisions Inability to pass urine or have bowel movements ANY shortness of breath, chest pain, leg swelling or leg pain (in one or both of your legs) Rapid heart rate Nausea or vomiting with the inability to keep liquids down Bleeding from your rectum Frequently feeling dizzy or light-headed, inability to walk Abnormal drain color appearance if you had a drain placed. If you have a medical emergency, call 911 or go to the closest hospital emergency room. Your one week and one month follow-up office visits with your surgeon at the [facility] are located in the discharge folder. These are required visits and important for your safety and recovery. [facility] DIETITIAN DISCHARGE INSTRUCTIONS The following information was reviewed with the patient, and the patient was given a hard copy of these instructions by the Bariatric Registered Dietitian. Overview of Post-Op Diet Protocol for Patients Following Gastric Bypass or Sleeve Gastrectomy Your dietitian will meet with you in the hospital before you are discharged to review the diet in more details and to answer any questions you may have, Day of Surgery (after you wake up from surgery) Nothing to eat or drink Post-op Day 1 If you are having an UGI xray, you will begin your clear liquids after you are notified that the results are back and you are cleared to begin If you are NOT having an UGI xray, you will begin your clear liquids as soon as your nurse notifies you that it is OK to start. Post-Op Day 2 Continue your bariatric clear liquid diet Post-op Day 3 Begin full liquid diet and continue until after your 1 week post-op visit You will continue to follow the full liquid diet until after you meet with your dietitian during your 1 week post-op office visit. The next diet phases will be reviewed and discussed with your during that visit, If you have questions about your diet(s), please contact the Bariatric Dietitians at [phone]. documented in this encounter [facility] 08-03-2023 Note Formatting of this n ote might be different from the original. IV x2 attempt unsuccessful, paged ultrasound to start IV. [facility] 08-03-2023 Note Formatting of this n ote might be different from the original. IV x2 attempt unsuccessful, paged ultrasound to start IV. [facility] 07-26-2023 Telephone encounter Note Will resume Eliquis post op . [facility] 07-26-2023 Miscellaneous Notes Will resume Eliquis post op . Risk 0.52% Patient on Eliquis DVT PPX Risk Factors [] Male [x] Age >= 60 years [x] BMI >= 50 kg/m^2 [] CHF [] Dyspnea at Rest [] Paraplegia [x] Non-Gastric Band Surgery [] Anticipate Operative Time > 3 hours [] Anticipate Length of Stay >3 days Automatic 4 Weeks of Therapy [] Congenital or Acquired Hypercoagulable Conditions (Factor V Leiden, Prothrombin) [] Past History of DVT or PE [] Significant Chronic Venous Insufficiency Calculated Risk Score: 0.52 Risk % Weeks </> BMI 50 SQ Dose [] Moderate <0.4% 0 None [x] High Risk 0.4% - 1% 2 [] 40 mg Lovenox BID [x] 60 mg Lovenox BID [] Very High Risk >1% 4 [] 40 mg Lovenox BID [] 60 mg Lovenox BID documented in this encounter [facility] 07-26-2023 Note ASAD MOY MD , F [facility], [facility] MINIMALLY INVASIVE & METABOLIC / BARIATRIC SURGERY [facility] - FINAL PRE-OP VISIT 07/26/2023 PATIENT: Mirlande Beltrán DATE OF : 1955 HISTORY OF PRESENT ILLNESS Chief Complaint: Morbid Obesity and here for final preoperative evaluation, informed consent and discussion of work-up results. Mirlande Beltrán is a 68 y.o. female with morbid obesity and associated comorbid conditions who presents to the [facility] for final pre-operative evaluation and for discussion of the preoperative testing results. A discussion of the risks, benefits and options of the planned procedure was also held and all questions were answered to the patient's satisfaction. The patient stands Height: 5' 3.75 (161.9 cm) tall with a weight of Weight: (!) 305 lb 9.6 oz (139 kg) , and has a BMI of Body mass index is 52.87 kg/m?. PATIENT SUMMARY Mirlande Moy 67 y.o. female with Body mass index is 55.91 kg/m?. ROBOTIC SLEEVE GASTRECTOMY - aka SG Procedure DM[] HTN[x] KISHOR[x] GERD[] HL[x] OA[] TOB[] Date of Surgery: 08/03/23 NOTES AD Pt taking semiglutide. 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 Pathology [x] H. pylori [x] Negative [] Positive 02/21/23 UGI [x] [] not ordered 04/05/23 normal US Abdomen [x] [] not ordered 04/05/23 small amt GB sludge KISHOR eval [x] [x] On CPAP / Obtain settings 17/11 CM H20 Hematology [] [] Hypercoagulation panel Toxicology [] [] Urine drug screen [] EtOH screen Addtional [] [] Hgb A1c 03/23/23 5.3 INITIAL CONSULTATIONS CLEARANCE / MANAGEMENT Psychology [x] Dr. Carolina Initial 04.28.2023; CLEARED 06.07.2023 Dietitian [x] Monica Tolentino, MS, RD, CSSD, LD Cleared 02/10/2023 Cardiology [x] [] not ordered DR RACHEL Yadav Cleared march 14. Hold eliquis 2 days prior Pulmonary [x] [] not ordered DR Abelardo Asencio. 04/17/23 cleared. Others [x] [x]Heme/Onc []Psychiatry []Pain mgmt DR Mariya Asencio. Ok for surgery, office note of 03/21/23 PSD [] Physician supervised diet: []None [x]3 mos []6 mos Preop diet [] Preop low calory diet: []None [x]1 wk []2 wks []Ext. FINAL PRE-OP TESTING RESULTS Labwork [x] [x]Pre-op CBC [x]BMP []Serum Nicotine / Cotinine EKG [x] CXR [x] POST-OP MEDICATIONS Ulcer Ppx [x] Omeprazole 20 mg PO [x]QD []BID Gallstone Ppx [x] Ursodiol 300 mg [x]BID DVT Ppx [] DVT prophylaxis per final preop visit estimated risk Estimated calculated risk: 0.52% TO MEDICARE REVIEW 06/07/23 WLS Prior Auth Request Submitted: YVAN Prior Auth Approval Received: MEDICARE APPROVED 06/07/23 DVT PPX Risk Factors [] Male [x] Age >= 60 years [x] BMI >= 50 kg/m^2 [] CHF [] Dyspnea at Rest [] Paraplegia [x] Non-Gastric Band Surgery [] Anticipate Operative Time > 3 hours [] Anticipate Length of Stay >3 days Automatic 4 Weeks of Therapy [] Congenital or Acquired Hypercoagulable Conditions (Factor V Leiden, Prothrombin) [] Past History of DVT or PE [] Significant Chronic Venous Insufficiency Calculated Risk Score: 0.52 Risk % Weeks </> BMI 50 SQ Dose [] Moderate <0.4% 0 None [x] High Risk 0.4% - 1% 2 [] 40 mg Lovenox BID [x] 60 mg Lovenox BID [] Very High Risk >1% 4 [] 40 mg Lovenox BID [] 60 mg Lovenox BID Review of Symptoms Constitutional: negative for chills, fevers, night sweats Respiratory: negative for cough, dyspnea on exertion, hemoptysis, and sputum Cardiovascular: negative for chest pain, chest pressure/discomfort, dyspnea, irregular heart beat, palpitations, and syncope Gastrointestinal: negative for abdominal pain, constipation, diarrhea, dysphagia, melena, reflux symptoms, and vomiting Neurological: negative for dizziness, paresthesia, seizures, and weakness PAST HISTORIES Past Medical History: Diagnosis Date Atrial fibrillation (HCC) Back pain COVID-19 vaccine series declined GERD (gastroesophageal reflux disease) Hyperlipidemia Hypertension Joint pain Myocardial infarction (HCC) Sleep apnea Snoring SOB (shortness of breath) on exertion Past Surgical History: Procedure Laterality Date ADENOIDECTOMY APPENDECTOMY 1970 W CYST REMOVAL CARDIAC CATHETERIZATION 2020 CARDIOVERSION 2022 COLONOSCOPY 02/21/2023 Dr Soares. sigmoid polyp, diverticula. CYST REMOVAL Right 1971 W APPENDECTOMY EGD (HISTORICAL) 02/21/2023 DR Soares- esophagitis, Schatzki's ring, sm amount of food. TONSILLECTOMY Family Hi (more content not included)... [facility] 07-26-2023 History of Presen t illness Narrative [facility] SURGICAL WEIGHT LOSS MANAGEMENT PROGRAM Rooming note: FINAL PRE-OP VISIT Patient: Mirlaned Beltrán Date of : 1955 Service Date: 07/26/2023 This patient is accompanied by with spouse for the evaluation today Patient is here today for their final pre-operative visit with surgeon prior to undergoing surgical weight loss intervention. Patient has the following question(s): please refer to pt list Weight Metrics: Measurements Weight: (!) 305 lb 9.6 oz (139 kg) Height: 5' 3.75 (161.9 cm) BMI (Calculated): 53 Percent Excess Weight Loss: 0 Percent Weight Change Since Preop (kg): 138.62 kg Initial Excess Weight (kg): -53.86 kg IBW in kg (Bariatric): 53.86 kg IBW in lb (Bariatric): 118.75 lb Weight Change Since Last Visit: 0.27 kg Percent of IBW: 257.35 Percent EBW (kg): 84.73 kg EBW (lb): 186.85 lb Today's weight has decreased from the last visit Falls Risk Assessment Patient does take medications which affect BP or mental status Patient does not have newly prescribed or changed dosage of medications within past 30 days which affect BP or mental status Patient has not fallen in the past 2 months Patient does not demonstrate unsteady gait Patient uses the following ambulatory assistive devices: none Patient states the presence of the following traits which increases risk of fall: none Patient is low risk for falls. If high or moderate risk, patient instructed not to ambulate independently in the Center, and cord for call light placed within reach of patient. Patient has not had a time when it was difficult for an IV to be placed. Patient is not on home O2 Patient has not has a time when it was difficult to intubate them Patient does have a CPAP/BiPAP machine. If patient DOES have CPAP/BiPAP: [] CPAP [x] BiPAP Settings are 17/11 cm H2O PAP and settings are entered into the Medication List Completed by: Radha Arguello Images from the original note were not included. ASAD MOY MD , FACS, [facility] MINIMALLY INVASIVE & METABOLIC / BARIATRIC SURGERY [facility] - FINAL PRE-OP VISIT 07/26/2023 PATIENT: Mirlande Beltrán DATE OF : 1955 - HISTORY OF PRESENT ILLNESS Chief Complaint: Morbid Obesity and here for final preoperative evaluation, informed consent and discussion of work-up results. Mirlande Beltrán is a 68 y.o. female with morbid obesity and associated comorbid conditions who presents to the [facility] for final pre-operative evaluation and for discussion of the preoperative testing results. A discussion of the risks, benefits and options of the planned procedure was also held and all questions were answered to the patient's satisfaction. The patient stands Height: 5' 3.75 (161.9 cm) tall with a weight of Weight: (!) 305 lb 9.6 oz (139 kg) , and has a BMI of Body mass index is 52.87 kg/m . PATIENT SUMMARY Mirlande Beltrán Dr. Moy 67 y.o. female with Body mass index is 55.91 kg/m . ROBOTIC SLEEVE GASTRECTOMY - aka SG Procedure DM[] HTN[x] KISHOR[x] GERD[] HL[x] OA[] TOB[] Date of Surgery: 08/03/23 NOTES AD Pt taking semiglutide. 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 Pathology [x] H. pylori [x] Negative [] Positive 02/21/23 UGI [x] [] not ordered 04/05/23 normal US Abdomen [x] [] not ordered 04/05/23 small amt GB sludge KISHOR eval [x] [x] On CPAP / Obtain settings 17/11 CM H20 Hematology [] [] Hypercoagulation panel Toxicology [] [] Urine drug screen [] EtOH screen Addtional [] [] Hgb A1c 03/23/23 5.3 INITIAL CONSULTATIONS CLEARANCE / MANAGEMENT Psychology [x] Dr. Carolina Initial 04.28.2023; CLEARED 06.07.2023 Dietitian [x] Monica Tolentino, MS, RD, CSSD, LD Cleared 02/10/2023 Cardiology [x] [] not ordered DR RACHEL Yadav Cleared march 14. Hold eliquis 2 days prior Pulmonary [x] [] not ordered DR Abelardo Asencio. 04/17/23 cleared. Others [x] [x]Heme/Onc []Psychiatry []Pain mgmt DR Mariya Asencio. Ok for surgery, office note of 03/21/23 PSD [] Physician supervised diet: []None [x]3 mos []6 mos Preop diet [] Preop low calory diet: []None [x]1 wk []2 wks []Ext. FINAL PRE-OP TESTING RESULTS Labwork [x] [x]Pre-op CBC [x]BMP []Serum Nicotine / Cotinine EKG [x] CXR [x] POST-OP MEDICATIONS Ulcer Ppx [x] Omeprazole 20 mg PO [x]QD []BID Gallstone Ppx [x] Ursodiol 300 mg [x]BID DVT Ppx [] DVT prophylaxis per final preop visit estimated risk Estimated calculated risk: 0.52% TO MEDICARE REVIEW 06/07/23 YVAN Prior Auth Request Submitted: YVAN Prior Auth Approval Received: MEDICARE APPROVED 06/07/23 DVT PPX Risk Factors [] Male [x] Age >= 60 years [x] BMI >= 50 kg/m^2 [] CHF [] Dyspnea at Rest [] Paraplegia [x] Non-Gastric Band Surgery [] Anticipate Operative Time > 3 hours [] Anticipate Length of Stay >3 days Automatic 4 Weeks of Therapy [] Congenital or Acquired Hypercoagulable Conditions (Factor V Leiden, Prothrombin) [] Past History of DVT or PE [] Significant Chronic Venous Insufficiency Calculated Risk Score: 0.52 Risk % Weeks </> BMI 50 SQ Dose [] Moderate <0.4% 0 None [x] High Risk 0.4% - 1% 2 [] 40 mg Lovenox BID [x] 60 mg Lovenox BID [] Very High Risk >1% 4 [] 40 mg Lovenox BID [] 60 mg Lovenox BID Review of Symptoms Constitutional: negative for chills, fevers, night sweats Respiratory: negative for cough, dyspnea on exertion, hemoptysis, and sputum Cardiovascular: negative for chest pain, chest pressure/discomfort, dyspnea, irregular heart beat, palpitations, and syncope Gastrointestinal: negative for abdominal pain, constipation, diarrhea, dysphagia, melena, reflux symptoms, and vomiting Neurological: negative for dizziness, paresthesia, seizures, and weakness PAST HISTORIES Past Medical History: Diagnosis Date Atrial fibrillation (HCC) Back pain COVID-19 vaccine series declined GERD (gastroesophageal reflux disease) Hyperlipidemia Hypertension Joint pain Myocardial infarction (HCC) Sleep apnea Snoring SOB (shortness of breath) on exertion Past Surgical History: Procedure Laterality Date ADENOIDECTOMY APPENDECTOMY 1970 W CYST REMOVAL CARDIAC CATHETERIZATION 2020 CARDIOVERSION 2022 COLONOSCOPY 02/21/2023 Dr Soares. sigmoid polyp, diverticula. CYST REMOVAL Right 1970 W APPENDECTOMY EGD (HISTORICAL) 02/21/2023 DR Soares- esophagitis, Schatzki's ring, sm amount of food. TONSILLECTOMY Family History Problem Relation Name Age of Onset Cancer Mother Cancer Father Stroke Father Heart disease Father Hypertension Father Hypertension Brother Heart disease Brother Diabetes Brother Obesity Brother Diabetes Paternal Grandmother Cancer Maternal Grandmother Allergies Allergen Reactions Metoprolol Other Extreme fatigue Pcn [Penicillins] Rash PHYSICAL EXAM BP 122/72 Pulse 71 Temp 36.3 C (97.3 F) Resp 16 Ht 5' 3.75 (1.619 m) Wt (!) 305 lb 9.6 oz (139 kg) BMI 52.87 kg/m General: This patient is awake, alert, and oriented, with normal affect and is in no apparent distress. Cardiac: Regular rate and rhythm without evidence of murmur. Respiratory: Clear to auscultation bilaterally with normal effort. Abdomen: Obese, soft, non-tender, non-distended without masses/ No evidence of abdominal hernia / Incisions consistent with previous surgeries. Surgical sites: Clean dry and intact Head and Neck: Obese, normocephalic and atraumatic/soft and supple, no lymphadenopathy or obvious bruits. No thyroidmegaly. Extremities: No cyanosis, clubbing or edema/ No calf tenderness/No restrictions of movement, is ambulatory without assistance. Neurological: Intact x 4 extremities, normal sensation, no focal deficits notes. Skin: Skin cool, warm and dry. No rashes or lesions noted. Rectal: Deferred LABORATORY STUDIES AND IMAGING Laboratory Studies: Recent Labs 07/24/23 1132 NA 134* K 5.1 CL 100 CO2 24 BUN 33* CREATININE 0.80 GLUCOSE 88 CALCIUM 10.3 Recent Labs 07/24/23 1132 WBC 9.4 RBC 4.63 HGB 13.6 HCT 39.8 MCV 86.0 MCH 29.3 MCHC 34.1 RDW 14.2 PLT 284 MPV 9.9 No results for input(s): ALKPHOS , ALT , AST , PROT , BILITOT , BILIDIR , LIPASE in the last 72 hours. No lab exists for component: LABALBU ASSESSMENT Encounter Diagnoses Name Primary? KISHOR (obstructive sleep apnea) Yes Primary hypertension Gastroesophageal reflux disease, unspecified whether esophagitis present Hyperlipidemia, unspecified hyperlipidemia type Back pain, unspecified back location, unspecified back pain laterality, unspecified chronicity Morbid obesity with BMI of 50.0-59.9, adult (HCC) Paroxysmal atrial fibrillation (HCC) Biliary sludge In anticipation of weight reductive surgery now or in the future, we spent a great deal of time discussing the risks and benefits of , including but not limited to injury to intra-abdominal organs, breakdown of the gastric staple line, the need for re-operative therapy, prolonged hospitalization, mechanical ventilation, and . We discussed the possibility of bleeding, the need for blood transfusions, blood clots, hospital-acquired and intra-abdominal infection, anastomotic stricture, and worsening GERD. And we discussed the need for post-operative visit compliance, behavior modifications and diet changes, protein and vitamin supplementation, as well as routine scheduled and dedicated exercise. We discussed the potential weight loss benefit of approximately 60-70% of the excess body weight at 12-18 months post-op, as well as the possibility of insufficient weight loss or weight gain. PLAN Based on today's evaluation, the patient is ready to proceed with SLEEVE GASTRECTOMY - aka SG as detailed above. No orders of the defined types were placed in this encounter. ATTESTATION I personally interviewed and examined the patient. I have reviewed their past medical, surgical, medication, allergy, social and family histories. I have performed an independent physical examination and have reviewed all pertinent laboratory and imaging results. I have reviewed with the patient my assessment of their condition as well as the treatment recommendations and the associated risks, benefits and options. I have spent a total of 30 minutes for this office visit in [id number] discussion, counseling of this patient, reviewing medical records and documenting the encounter. MOY MD, [facility], [facility] Mattress Specialist - Weight Management [place] / [facility] Load Builder - Advanced GI MIS, Foregut and Bariatric Surgery Fellowship ---[facility]--- Patient Care Team: Arthur Gamez MD as PCP - General (Family Medicine) Asad Moy MD as Surgeon (General Surgery) Abelardo Charlton (Internal Medicine) Joseph. Meraz (Oncology) Radha Sterling RN as Registered Nurse documented in this encounter [facility] 07-26-2023 History of Presen t illness Narrative BARIATRIC [facility] SURGICAL WEIGHT LOSS MANAGEMENT PROGRAM Rooming note: FINAL PRE-OP VISIT Patient: Mirlande Beltrán Date of : 1955 Service Date: 07/26/2023 This patient is accompanied by with spouse for the evaluation today Patient is here today for their final pre-operative visit with surgeon prior to undergoing surgical weight loss intervention. Patient has the following question(s): please refer to pt list Weight Metrics: Measurements Weight: (!) 305 lb 9.6 oz (139 kg) Height: 5' 3.75 (161.9 cm) BMI (Calculated): 53 Percent Excess Weight Loss: 0 Percent Weight Change Since Preop (kg): 138.62 kg Initial Excess Weight (kg): -53.86 kg IBW in kg (Bariatric): 53.86 kg IBW in lb (Bariatric): 118.75 lb Weight Change Since Last Visit: 0.27 kg Percent of IBW: 257.35 Percent EBW (kg): 84.73 kg EBW (lb): 186.85 lb Today's weight has decreased from the last visit Falls Risk Assessment Patient does take medications which affect BP or mental status Patient does not have newly prescribed or changed dosage of medications within past 30 days which affect BP or mental status Patient has not fallen in the past 2 months Patient does not demonstrate unsteady gait Patient uses the following ambulatory assistive devices: none Patient states the presence of the following traits which increases risk of fall: none Patient is low risk for falls. If high or moderate risk, patient instructed not to ambulate independently in the Center, and cord for call light placed within reach of patient. Patient has not had a time when it was difficult for an IV to be placed. Patient is not on home O2 Patient has not has a time when it was difficult to intubate them Patient does have a CPAP/BiPAP machine. If patient DOES have CPAP/BiPAP: [] CPAP [x] BiPAP Settings are 17/11 cm H2O PAP and settings are entered into the Medication List Completed by: Radha Arguello Images from the original note were not included. ASAD MOY MD , FACS, [facility] MINIMALLY INVASIVE & METABOLIC / BARIATRIC SURGERY [facility] MBS - FINAL PRE-OP VISIT 07/26/2023 PATIENT: Mirlande Beltrán DATE OF : 1955 - HISTORY OF PRESENT ILLNESS Chief Complaint: Morbid Obesity and here for final preoperative evaluation, informed consent and discussion of work-up results. Mirlande Beltrán is a 68 y.o. female with morbid obesity and associated comorbid conditions who presents to the [facility] for final pre-operative evaluation and for discussion of the preoperative testing results. A discussion of the risks, benefits and options of the planned procedure was also held and all questions were answered to the patient's satisfaction. The patient stands Height: 5' 3.75 (161.9 cm) tall with a weight of Weight: (!) 305 lb 9.6 oz (139 kg) , and has a BMI of Body mass index is 52.87 kg/m . PATIENT SUMMARY Mirlande Beltrán Dr. Moy 67 y.o. female with Body mass index is 55.91 kg/m . ROBOTIC SLEEVE GASTRECTOMY - aka SG Procedure DM[] HTN[x] KISHOR[x] GERD[] HL[x] OA[] TOB[] Date of Surgery: 08/03/23 NOTES AD Pt taking semiglutide. 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 Pathology [x] H. pylori [x] Negative [] Positive 02/21/23 UGI [x] [] not ordered 04/05/23 normal US Abdomen [x] [] not ordered 04/05/23 small amt GB sludge KISHOR eval [x] [x] On CPAP / Obtain settings 17/11 CM H20 Hematology [] [] Hypercoagulation panel Toxicology [] [] Urine drug screen [] EtOH screen Addtional [] [] Hgb A1c 03/23/23 5.3 INITIAL CONSULTATIONS CLEARANCE / MANAGEMENT Psychology [x] Dr. Carolina Initial 04.28.2023; CLEARED 06.07.2023 Dietitian [x] Monica Tolentino, MS, RD, CSSD, LD Cleared 02/10/2023 Cardiology [x] [] not ordered DR RACHEL Yadav Cleared march 14. Hold eliquis 2 days prior Pulmonary [x] [] not ordered DR Abelardo Asencio. 04/17/23 cleared. Others [x] [x]Heme/Onc []Psychiatry []Pain mgmt DR Mariya Asencio. Ok for surgery, office note of 03/21/23 PSD [] Physician supervised diet: []None [x]3 mos []6 mos Preop diet [] Preop low calory diet: []None [x]1 wk []2 wks []Ext. FINAL PRE-OP TESTING RESULTS Labwork [x] [x]Pre-op CBC [x]BMP []Serum Nicotine / Cotinine EKG [x] CXR [x] POST-OP MEDICATIONS Ulcer Ppx [x] Omeprazole 20 mg PO [x]QD []BID Gallstone Ppx [x] Ursodiol 300 mg [x]BID DVT Ppx [] DVT prophylaxis per final preop visit estimated risk Estimated calculated risk: 0.52% TO MEDICARE REVIEW 06/07/23 [place] Prior Auth Request Submitted: YVAN Prior Auth Approval Received: MEDICARE APPROVED 06/07/23 DVT PPX Risk Factors [] Male [x] Age >= 60 years [x] BMI >= 50 kg/m^2 [] CHF [] Dyspnea at Rest [] Paraplegia [x] Non-Gastric Band Surgery [] Anticipate Operative Time > 3 hours [] Anticipate Length of Stay >3 days Automatic 4 Weeks of Therapy [] Congenital or Acquired Hypercoagulable Conditions (Factor V Leiden, Prothrombin) [] Past History of DVT or PE [] Significant Chronic Venous Insufficiency Calculated Risk Score: 0.52 Risk % Weeks </> BMI 50 SQ Dose [] Moderate <0.4% 0 None [x] High Risk 0.4% - 1% 2 [] 40 mg Lovenox BID [x] 60 mg Lovenox BID [] Very High Risk >1% 4 [] 40 mg Lovenox BID [] 60 mg Lovenox BID Review of Symptoms Constitutional: negative for chills, fevers, night sweats Respiratory: negative for cough, dyspnea on exertion, hemoptysis, and sputum Cardiovascular: negative for chest pain, chest pressure/discomfort, dyspnea, irregular heart beat, palpitations, and syncope Gastrointestinal: negative for abdominal pain, constipation, diarrhea, dysphagia, melena, reflux symptoms, and vomiting Neurological: negative for dizziness, paresthesia, seizures, and weakness PAST HISTORIES Past Medical History: Diagnosis Date Atrial fibrillation (HCC) Back pain COVID-19 vaccine series declined GERD (gastroesophageal reflux disease) Hyperlipidemia Hypertension Joint pain Myocardial infarction (HCC) Sleep apnea Snoring SOB (shortness of breath) on exertion Past Surgical History: Procedure Laterality Date ADENOIDECTOMY APPENDECTOMY 1970 W CYST REMOVAL CARDIAC CATHETERIZATION 2020 CARDIOVERSION 2022 COLONOSCOPY 02/21/2023 Dr Soares. sigmoid polyp, diverticula. CYST REMOVAL Right 1970 W APPENDECTOMY EGD (HISTORICAL) 02/21/2023 DR Soares- esophagitis, Schatzki's ring, sm amount of food. TONSILLECTOMY Family History Problem Relation Name Age of Onset Cancer Mother Cancer Father Stroke Father Heart disease Father Hypertension Father Hypertension Brother Heart disease Brother Diabetes Brother Obesity Brother Diabetes Paternal Grandmother Cancer Maternal Grandmother Allergies Allergen Reactions Metoprolol Other Extreme fatigue Pcn [Penicillins] Rash PHYSICAL EXAM BP 122/72 Pulse 71 Temp 36.3 C (97.3 F) Resp 16 Ht 5' 3.75 (1.619 m) Wt (!) 305 lb 9.6 oz (139 kg) BMI 52.87 kg/m General: This patient is awake, alert, and oriented, with normal affect and is in no apparent distress. Cardiac: Regular rate and rhythm without evidence of murmur. Respiratory: Clear to auscultation bilaterally with normal effort. Abdomen: Obese, soft, non-tender, non-distended without masses/ No evidence of abdominal hernia / Incisions consistent with previous surgeries. Surgical sites: Clean dry and intact Head and Neck: Obese, normocephalic and atraumatic/soft and supple, no lymphadenopathy or obvious bruits. No thyroidmegaly. Extremities: No cyanosis, clubbing or edema/ No calf tenderness/No restrictions of movement, is ambulatory without assistance. Neurological: Intact x 4 extremities, normal sensation, no focal deficits notes. Skin: Skin cool, warm and dry. No rashes or lesions noted. Rectal: Deferred LABORATORY STUDIES AND IMAGING Laboratory Studies: Recent Labs 07/24/23 1132 NA 134* K 5.1 CL 100 CO2 24 BUN 33* CREATININE 0.80 GLUCOSE 88 CALCIUM 10.3 Recent Labs 07/24/23 1132 WBC 9.4 RBC 4.63 HGB 13.6 HCT 39.8 MCV 86.0 MCH 29.3 MCHC 34.1 RDW 14.2 PLT 284 MPV 9.9 No results for input(s): ALKPHOS , ALT , AST , PROT , BILITOT , BILIDIR , LIPASE in the last 72 hours. No lab exists for component: LABALBU ASSESSMENT Encounter Diagnoses Name Primary? KISHOR (obstructive sleep apnea) Yes Primary hypertension Gastroesophageal reflux disease, unspecified whether esophagitis present Hyperlipidemia, unspecified hyperlipidemia type Back pain, unspecified back location, unspecified back pain laterality, unspecified chronicity Morbid obesity with BMI of 50.0-59.9, adult (HCC) Paroxysmal atrial fibrillation (HCC) Biliary sludge In anticipation of weight reductive surgery now or in the future, we spent a great deal of time discussing the risks and benefits of , including but not limited to injury to intra-abdominal organs, breakdown of the gastric staple line, the need for re-operative therapy, prolonged hospitalization, mechanical ventilation, and . We discussed the possibility of bleeding, the need for blood transfusions, blood clots, hospital-acquired and intra-abdominal infection, anastomotic stricture, and worsening GERD. And we discussed the need for post-operative visit compliance, behavior modifications and diet changes, protein and vitamin supplementation, as well as routine scheduled and dedicated exercise. We discussed the potential weight loss benefit of approximately 60-70% of the excess body weight at 12-18 months post-op, as well as the possibility of insufficient weight loss or weight gain. PLAN Based on today's evaluation, the patient is ready to proceed with SLEEVE GASTRECTOMY - aka SG as detailed above. No orders of the defined types were placed in this encounter. ATTESTATION I personally interviewed and examined the patient. I have reviewed their past medical, surgical, medication, allergy, social and family histories. I have performed an independent physical examination and have reviewed all pertinent laboratory and imaging results. I have reviewed with the patient my assessment of their condition as well as the treatment recommendations and the associated risks, benefits and options. I have spent a total of 30 minutes for this office visit in [id number] discussion, counseling of this patient, reviewing medical records and documenting the encounter. MOY MD, FACS, [facility] Mattress Specialist - Weight Management [place] / [facility] Load Builder - Advanced GI MIS, Foregut and Bariatric Surgery Fellowship ---[facility]--- Patient Care Team: Arthur Gamez MD as PCP - General (Family Medicine) Asad Moy MD as Surgeon (General Surgery) Abelardo Charlton (Internal Medicine) Joseph. 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 Information Date/Time: 08/03/23 1130 Procedure: ROBOTIC (XI) SLEEVE GASTRECTOMY WITH LIVER WEDGE BIOPSY POSSIBLE OPEN (Abdomen) - THIS CASE REQUIRES 120 MIN Location: [facility] OR [address] [place] [address] Operating Room Surgeons: Asad Moy MD Relevant Problems Anesthesia (+) KISHOR (obstructive sleep apnea) Cardio (+) Hyperlipidemia (+) Hypertension (+) NSTEMI (non-ST elevated myocardial infarction) (CMS/HCC) (HCC) 08/18 aflutter July 2022 (+) Paroxysmal atrial fibrillation (HCC) GI (+) GERD (gastroesophageal reflux disease) Pulmonary (+) KISHOR (obstructive sleep apnea) Past Medical History: Past Medical History: No date: Atrial fibrillation (HCC) No date: Back pain No date: COVID-19 vaccine series declined No date: GERD (gastroesophageal reflux disease) No date: Hyperlipidemia No date: Hypertension No date: Joint pain No date: Myocardial infarction (HCC) No date: Sleep apnea No date: Snoring No date: SOB (shortness of breath) on exertion Past Surgical History: Past Surgical History: No date: ADENOIDECTOMY 1971: APPENDECTOMY Comment: W CYST REMOVAL 2020: CARDIAC CATHETERIZATION 2022: CARDIOVERSION 02/21/2023: COLONOSCOPY Comment: Dr Soares. sigmoid polyp, diverticula. 1971: CYST REMOVAL; Right Comment: W APPENDECTOMY 02/21/2023: EGD (HISTORICAL) Comment: DR Soares- esophagitis, Schatzki's ring, sm amount of food. No date: TONSILLECTOMY Social History: TOBACCO: reports that she has never smoked. She has never used smokeless tobacco. ETOH: reports that she does not currently use alcohol. Social History Substance and Sexual Activity Drug Use Never Family History: Family History Problem Relation Name Age of Onset ? Cancer Mother ? Cancer Father ? Stroke Father ? Heart disease Father ? Hypertension Father ? Hypertension Brother ? Heart disease Brother ? Diabetes Brother ? Obesity Brother ? Diabetes Paternal Grandmother ? Cancer Maternal Grandmother Screening: Postmenopausal Clinical information reviewed: Tobacco Allergies Meds Problems Med Hx Surg Hx OB Status Fam Hx Soc Hx Physical Exam Airway Mallampati: II TM distance: >3 FB Neck ROM: full Mouth Open: normal Cardiovascular Dental Comments: Implants, not sure where they are Nothing loose or removable dentition normal Pulmonary Abdominal Anesthesia Plan patient is NPO appropriate Any family history or previous problems with anesthesia no ASA 3 general and regional Any family history or previous problems with anesthesia no The patient is not a current smoker. Anesthetic plan and risks discussed with patient. Blood Glucose On semaglutide for weight loss ERAS Type General ERAS KISHOR Screening compliant with device Labs: Lab Results Component Value Date WBC 9.4 07/24/2023 HGB 13.6 07/24/2023 HCT 39.8 07/24/2023 MCV 86.0 07/24/2023 PLT 284 07/24/2023 No results found for: NA , K , CL , CO2 , BUN , CREATININE , GLUCOSE , CALCIUM , PROT , BILIRUBINFL , ALKPHOS , AST , ALT , EGFR , GLOB No echocardiogram results found for the past 14 days No results found for this or any previous visit. [facility] 07-24-2023 Note Comprehensive Pre [place] rgical History and Physical ? Name: Mirlande Beltrán : 1955 (Age-68 y.o.) Date of Service: Pt seen/examined on 07/24/2023 ASSESSMENT/PLAN: Patient is considered intermediate risk for this intermediate level 3risk procedure/surgery () Morbid (severe) obesity due to excess calories (HCC) [E66.01] - deferred to surgeon - mobility and physical activity is limited by knee pain. Ambulates with cane. Walked from main entrance of hospital to [facility] without chest pain or shortness of breath - Hold eliquis 2 days prior to procedure according to [facility] protocol - pt is on semaglutide Pre op Cardiology Evaluation - scanned into media 03/17/23 Atrial Fibrillation, paroxysmal - Dr. Lambert in [place] - NSTEMI July 2022 2/2 high rate atrial flutter, no stents, denies bypass - s/p cardioversion July 2022 - maintained on Eliquis and Sotalol - pt remains at baseline with shortness of breath - hold Eliquis 2 days according to [facility] protocol HTN - furosemide, lasix, lisinopril BP Readings from Last 3 Encounters: 07/24/23 132/68 04/03/23 136/72 03/16/23 (!) 146/84 KISHOR - compliant with device Chronic Pain - pt is maintained on norco, requip -- Chief Complaint: Morbid obesity History Of Present Illness: 68 y.o. female who we are asked to see/evaluate by [facility] 04 for pre-operative evaluation prior to . Procedure Information Date/Time: 08/03/23 1130 Procedure: ROBOTIC (XI) SLEEVE GASTRECTOMY WITH LIVER WEDGE BIOPSY POSSIBLE OPEN (Abdomen) - THIS CASE REQUIRES 120 MIN Location: [facility] OR / [facility] Operating Room Surgeons: Asad Moy MD Denies pain, f/c, cp, sob, n/v/d Denies CAD, DC, asthma, COPD, tobacco abuse; diabetes, thyroid disease; bleeding disorders, hematological disorders, cancer, Dvt / PE; seizures, strokes; liver disease, or alcohol abuse. No problems with anesthesia >4 mets, 1 flight of stairs would be slow due to knee pain Past Medical History: Past Medical History: No date: Back pain No date: COVID-19 vaccine series declined No date: GERD (gastroesophageal reflux disease) No date: History of heart attack No date: Hyperlipidemia No date: Hypertension No date: Irregular heart beat No date: Joint pain No date: Myocardial infarction (HCC) No date: Sleep apnea No date: Snoring No date: SOB (shortness of breath) on exertion Past Surgical History: Past Surgical History: No date: ADENOIDECTOMY 1970: APPENDECTOMY Comment: W CYST REMOVAL 2020: CARDIAC CATHETERIZATION 2022: CARDIOVERSION 02/21/2023: COLONOSCOPY Comment: Dr Soares. sigmoid polyp, diverticula. 1971: CYST REMOVAL; Right Comment: W APPENDECTOMY 02/21/2023: EGD (HISTORICAL) Comment: DR Soares- esophagitis, Schatzki's ring, sm amount of food. No date: TONSILLECTOMY Medications Prior to Admission: Prior to Admission medications Medication Sig Start Date End Date Taking? Authorizing Provider Calcium Carbonate (CALCIUM-CARB 600 PO) 600 mg before bedtime. Yes Historical Provider, cholecalciferol (Vitamin D-3) 250 MCG (53883 UT) capsule 10,000 Units daily. Yes Historical Provider, DULoxetine (Cymbalta) [address] capsule 60 mg at noon and 60 mg in the evening. 10/24/22 Yes Historical Provider, Eliquis 5 MG tablet Take 5 mg by mouth 2 times daily. 11/17/22 Yes Historical Provider, furosemide (Lasix) 40 MG tablet 40 mg at noon and 40 mg in the evening. 12/31/22 Yes Historical Provider, HYDROcodone-acetaminophen ([place]) 5-325 MG tablet 1 tablet in the morning and 1 tablet in the evening. Yes Historical Provider, lisinopril 20 MG tablet Take 20 mg by mouth daily. 11/24/22 Yes Historical Provider, Multiple Vitamins-Minerals (Multivitamin Adult, Minerals,) tablet daily. Yes Historical Provider, omeprazole (PriLOSEC) [address] capsule Take 20 mg by mouth every morning (before breakfast). Do not crush or chew. Yes Historical Provider, rOPINIRole (Requip) 3 MG tablet 3 mg Nightly. 12/31/22 Yes Historical Provider, rosuvastatin (Crestor) 40 MG tablet Take 40 mg by mouth before bedtime. 12/27/22 Yes Historical Provider, sotalol (Betapace) 80 MG tablet 80 mg at noon and 80 mg in the evening. 12/05/22 Yes Historical Provider, Cetirizine HCl (ZyrTEC ALLERGY) 10 MG capsule 10 mg Daily as needed. Historical Provider, Respiratory Therapy Supplies (CareTouch CPAP & BIPAP Hose) misc Nightly. 17-11 CM Historical Provider, semaglutide (Rybelsus) 14 MG tablet 1 (one) time per week. Historical Provider, CHRONIC NARCOTIC USE: Yes, norco Allergies: Metoprolol and Pcn [penicillins] Can pt take Acetaminophen: Yes Social History: TOBACCO: reports that she has never smoked. She has never used smokeless (more content not included)... [facility] 07-24-2023 Note Comprehensive Pre [place] rgical History and Physical ? Name: Mirlande Beltrán : 1955 (Age-68 y.o.) Date of Service: Pt seen/examined on 07/24/2023 ASSESSMENT/PLAN: Patient is considered intermediate risk for this intermediate level 3risk procedure/surgery () Morbid (severe) obesity due to excess calories (HCC) [E66.01] - deferred to surgeon - mobility and physical activity is limited by knee pain. Ambulates with cane. Walked from main entrance of hospital to [facility] without chest pain or shortness of breath - Hold eliquis 2 days prior to procedure according to [facility] protocol - pt is on semaglutide Pre op Cardiology Evaluation - scanned into media 03/17/23 Atrial Fibrillation, paroxysmal - Dr. Lambert in [place] - NSTEMI July 2022 2/2 high rate atrial flutter, no stents, denies bypass - s/p cardioversion July 2022 - maintained on Eliquis and Sotalol - pt remains at baseline with shortness of breath - hold Eliquis 2 days according to [facility] protocol HTN - furosemide, lasix, lisinopril BP Readings from Last 3 Encounters: 07/24/23 132/68 04/03/23 136/72 03/16/23 (!) 146/84 KISHOR - compliant with device Chronic Pain - pt is maintained on norco, requip -- Chief Complaint: Morbid obesity History Of Present Illness: 68 y.o. female who we are asked to see/evaluate by [facility] for pre-operative evaluation prior to . Procedure Information Date/Time: 08/03/23 1130 Procedure: ROBOTIC (XI) SLEEVE GASTRECTOMY WITH LIVER WEDGE BIOPSY POSSIBLE OPEN (Abdomen) - THIS CASE REQUIRES 120 MIN Location: [facility] OR [address] [place] [address] Operating Room Surgeons: Asad Moy MD Denies pain, f/c, cp, sob, n/v/d Denies CAD, DC, asthma, COPD, tobacco abuse; diabetes, thyroid disease; bleeding disorders, hematological disorders, cancer, Dvt / PE; seizures, strokes; liver disease, or alcohol abuse. No problems with anesthesia >4 mets, 1 flight of stairs would be slow due to knee pain Past Medical History: Past Medical History: No date: Back pain No date: COVID-19 vaccine series declined No date: GERD (gastroesophageal reflux disease) No date: History of heart attack No date: Hyperlipidemia No date: Hypertension No date: Irregular heart beat No date: Joint pain No date: Myocardial infarction (HCC) No date: Sleep apnea No date: Snoring No date: SOB (shortness of breath) on exertion Past Surgical History: Past Surgical History: No date: ADENOIDECTOMY 1971: APPENDECTOMY Comment: W CYST REMOVAL 2020: CARDIAC CATHETERIZATION 2022: CARDIOVERSION 02/21/2023: COLONOSCOPY Comment: Dr Soares. sigmoid polyp, diverticula. 1971: CYST REMOVAL; Right Comment: W APPENDECTOMY 02/21/2023: EGD (HISTORICAL) Comment: DR Soares- esophagitis, Schatzki's ring, sm amount of food. No date: TONSILLECTOMY Medications Prior to Admission: Prior to Admission medications Medication Sig Start Date End Date Taking? Authorizing Provider Calcium Carbonate (CALCIUM-CARB 600 PO) 600 mg before bedtime. Yes Historical Provider, cholecalciferol (Vitamin D-3) 250 MCG (94943 UT) capsule 10,000 Units daily. Yes Historical Provider, DULoxetine (Cymbalta) [address] capsule 60 mg at noon and 60 mg in the evening. 10/24/22 Yes Historical Provider, Eliquis 5 MG tablet Take 5 mg by mouth 2 times daily. 11/17/22 Yes Historical Provider, furosemide (Lasix) 40 MG tablet 40 mg at noon and 40 mg in the evening. 12/31/22 Yes Historical Provider, HYDROcodone-acetaminophen ([place]) 5-325 MG tablet 1 tablet in the morning and 1 tablet in the evening. Yes Historical Provider, lisinopril 20 MG tablet Take 20 mg by mouth daily. 11/24/22 Yes Historical Provider, Multiple Vitamins-Minerals (Multivitamin Adult, Minerals,) tablet daily. Yes Historical Provider, omeprazole (PriLOSEC) [address] capsule Take 20 mg by mouth every morning (before breakfast). Do not crush or chew. Yes Historical Provider, rOPINIRole (Requip) 3 MG tablet 3 mg Nightly. 12/31/22 Yes Historical Provider, rosuvastatin (Crestor) 40 MG tablet Take 40 mg by mouth before bedtime. 12/27/22 Yes Historical Provider, sotalol (Betapace) 80 MG tablet 80 mg at noon and 80 mg in the evening. 12/05/22 Yes Historical Provider, Cetirizine HCl (ZyrTEC ALLERGY) 10 MG capsule 10 mg Daily as needed. Historical Provider, Respiratory Therapy Supplies (CareTouch CPAP & BIPAP Hose) misc Nightly. 17-11 CM Historical Provider, semaglutide (Rybelsus) 14 MG tablet 1 (one) time per week. Historical Provider, CHRONIC NARCOTIC USE: Yes, norco Allergies: Metoprolol and Pcn [penicillins] Can pt take Acetaminophen: Yes Social History: TOBACCO: reports that she has never smoked. She has never used smokeless (more content not included)... [facility] 07-13-2023 Telephone encounter Note Sent pt [employer] message regarding pre op meal plan. Will also call to check in for review /questions prior to her start date of 07/19/22. [facility] Work Phone: 07-13-2023 Miscellaneous Notes Sent pt [employer] message regarding pre op meal plan. Will also call to check in for review /questions prior to her start date of 07/19/22. HER FPOV is changed to Jul 26- Nadira can you please instruct on the pre op diet, thanks. It is one week, but will be cutting it too close if we wait until the visit. Thanks!! [facility] 08/03/[address] MOY I attempted to contact patient at [phone] no answer, left voice message regarding scheduling her FPOV on 07/19/2023 @ 11:00 to speak with the surgeon go over everything for surgery, sign consent forms and receive her educational binder. Left my direct number [phone], for a return call confirming date / time of appointment and that she will attend. documented in this encounter [facility] 07-13-2023 Telephone encounter Note HER FPOV is changed to Kirt Dipesh Waddell can you please instruct on the pre op diet, thanks. It is one week, but will be cutting it too close if we wait until the visit. Thanks!! [facility] 07-13-2023 Telephone encounter Note DOS 08/03/[address] MOY I attempted to contact patient at [phone] no answer, left voice message regarding scheduling her FPOV on 07/19/2023 @ 11:00 to speak with the surgeon go over everything for surgery, sign consent forms and receive her educational binder. Left my direct number [phone], for a return call confirming date / time of appointment and that she will attend. [employer] 07-12-2023 Telephone encounter Note Risk 0.52% Patient on Eliquis DVT PPX Risk Factors [] Male [x] Age >= 60 years [x] BMI >= 50 kg/m^2 [] CHF [] Dyspnea at Rest [] Paraplegia [x] Non-Gastric Band Surgery [] Anticipate Operative Time > 3 hours [] Anticipate Length of Stay >3 days Automatic 4 Weeks of Therapy [] Congenital or Acquired Hypercoagulable Conditions (Factor V Leiden, Prothrombin) [] Past History of DVT or PE [] Significant Chronic Venous Insufficiency Calculated Risk Score: 0.52 Risk % Weeks </> BMI 50 SQ Dose [] Moderate <0.4% 0 None [x] High Risk 0.4% - 1% 2 [] 40 mg Lovenox BID [x] 60 mg Lovenox BID [] Very High Risk >1% 4 [] 40 mg Lovenox BID [] 60 mg Lovenox BID [facility] [employer] 06-12-2023 Telephone encounter Note Noted, thank you. Will prepare for scheduling. [employer] 06-12-2023 Miscellaneous Notes Noted, thank you. Will prepare for scheduling. Upon review of chart for Medicare, patient has met with Obesity Medicine Specialist, four months in succession. Patient has demonstrated behavior and nutrition patterns, as counseled. OK to proceed with surgery scheduling. Medicare patient appears complete. To LB for Medicare Review. Addended by: JUANA AUGUSTIN on: 03/22/2023 12:07 PM Modules accepted: Orders Signed. Addended by: OCSAR HERNÁNDEZ on: 03/22/2023 08:48 AM Modules accepted: Orders Papito please Spoke to pt about Ig G lambda that showed up on SIFE. This lab set was ordered by DR Meraz. We received as some of the lab we need are in the set. Pt states that this issue is managed by her Bag Filler in [place]. She will call his office and have recent office note faxed to me. Then I will update the medical history. She also has her own Barrel Line Operator and Certified Ophthalmic Assistant. Dr Lambert, and Abelardo Charlton, respectively. Both are in [place]. I have faxed our clearance form to both offices. 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 Initial New [facility] surgical patient Navigation & Financial Counseling Discussion [...] 1) Scheduled at new pt surgeon visit: Performing Artist (RD) for a Nutrition Assessment (BNA) and [...] and after surgery. documented in this encounter [facility] 06-07-2023 Telephone encounter Note Upon review of chart for Medicare, patient has met with Obesity Medicine Specialist, four months in succession. Patient has demonstrated behavior and nutrition patterns, as counseled. OK to proceed with surgery scheduling. [facility] 06-07-2023 Miscellaneous Notes Upon review of chart for Medicare, patient has met with Obesity Medicine Specialist, four months in succession. Patient has demonstrated behavior and nutrition patterns, as counseled. OK to proceed with surgery scheduling. Medicare patient appears complete. To LB for Medicare Review. Addended by: JUANA AUGUSTIN [...] that this issue is managed by her Bag Filler in [place]. She will call his office and have recent office note faxed to me. Then I will update the medical history. She also has her own Barrel Line Operator and Certified Ophthalmic Assistant. Dr Lambert, and Abelardo Charlton, respectively. Both are in [place]. I have faxed our clearance form to both offices. 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 Initial New [facility] surgical patient Navigation & Financial Counseling Discussion [...] 1) Scheduled at new pt surgeon visit: Performing Artist (RD) for a Nutrition Assessment (BNA) and [...] and after surgery. documented in this encounter [facility] 06-07-2023 Telephone encounter Note Medicare patient appears complete. To LB for Medicare Review. [facility] 04-03-[address] [facility] SURGICAL WEIGHT LOSS MANAGEMENT PROGRAM PROGRESS NOTE FOLLOW UP Patient: Mirlande Beltrán Date of : 1955 Service Date: 04/03/2023 DE Visit number: 3 of 3 Pre Program Weight Metrics Date of Initial Consultation:@FLOWLAST(8961)@ Initial Weight: @FLOWLAST([id number])@ Initial BMI: @FLOWLAST([id number])@ [place] Body Weight: @FLOWLAST([id number])@ Excess Body Weight: @FLOWLAST([id number])@ Follow Up Weight Metrics Last Three Weights [...] home O2 Completed by: Monica Collins MA [facility] 04-03-2023 History of Presen t illness Narrative [facility] [place] SURGICAL WEIGHT LOSS MANAGEMENT PROGRAM PROGRESS NOTE FOLLOW UP Patient: Mirlande Beltrán Date of : 1955 Service Date: 04/03/2023 DE Visit number: 3 of 3 Pre Program Weight Metrics Date of Initial Consultation:@FLOWLAST(8961)@ Initial Weight: @FLOWLAST([id number])@ Initial BMI: @FLOWLAST([id number])@ [place] Body Weight: @FLOWLAST([id number])@ Excess Body Weight: @FLOWLAST([id number])@ Follow Up Weight Metrics Last Three Weights [...] per instructions of a nurse practitioner in [place], [place]. Ms. Beltrán states she will be restarted on the lowest dose. She has tolerated semaglutide well. Management per the PURCHASER in [place], [place]. --The following was discussed with Ms. [...] as needed. CHOLECALCIFEROL (VITAMIN D-3) 250 MCG (26492 UT) CAPSULE 10,000 Units before bedtime. DULOXETINE [...] listed in Epic. documented in this encounter [facility] 04-03-2023 History of Presen t illness Narrative [facility] SURGICAL WEIGHT LOSS MANAGEMENT PROGRAM PROGRESS NOTE FOLLOW UP Patient: Mirlande Beltrán Date of : 1955 Service Date: 04/03/2023 DE Visit number: 3 of 3 Pre Program Weight Metrics Date of Initial Consultation:@FLOWLAST(8961)@ Initial Weight: @FLOWLAST([id number])@ Initial BMI: @FLOWLAST([id number])@ [place] Body Weight: @FLOWLAST([id number])@ Excess Body Weight: @FLOWLAST([id number])@ Follow Up Weight Metrics Last Three Weights [...] per instructions of a nurse practitioner in [place], [place]. Ms. Beltrán states she will be restarted on the lowest dose. She has tolerated semaglutide well. Management per the PURCHASER in [place], [place]. --The following was discussed with Ms. [...] as needed. CHOLECALCIFEROL (VITAMIN D-3) 250 MCG (52311 UT) CAPSULE 10,000 Units before bedtime. DULOXETINE [...] listed in Epic. documented in this encounter [facility] 03-22-2023 Note Addended by: JUANA AUGUSTIN on: 03/22/2023 12:07 PM Modules accepted: Orders [facility] 03-22-2023 Note Addended by: JUANA AUGUSTIN on: 03/22/2023 12:07 PM Modules accepted: Orders [facility] 03-22-2023 Note Addended by: JUANA AUGUSTIN on: 03/22/2023 12:07 PM Modules accepted: Orders [facility] 03-22-2023 Note Addended by: JUANA AUGUSTIN on: 03/22/2023 12:07 PM Modules accepted: Orders [facility] 03-22-2023 Miscellaneous Notes Addended by: JUANA AUGUSTIN [...] that this issue is managed by her Bag Filler in [place]. She will call his office and have recent office note faxed to me. Then I will update the medical history. She also has her own Barrel Line Operator and Certified Ophthalmic Assistant. Dr Lambert, and Abelardo Charlton, respectively. Both are in [place]. I have faxed our clearance form to both offices. DR Lambert- [phone] Charlton - [phone] Pt reports she had an EGD by GI and then GES Monday - per pt. 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 Initial New [facility] surgical patient Navigation & Financial Counseling Discussion Patient Communication: In office SURGEON: [] JCaesra [x] AD [] MP [] TB [] [...] 1) Scheduled at new pt surgeon visit: Performing Artist (RD) for a Nutrition Assessment (BNA) and [...] and after surgery. documented in this encounter [facility] 03-22-2023 Telephone encounter Note Signed. [facility] 03-22-2023 Note Addended by: OSCAR HERNÁNDEZ on: 03/22/2023 08:48 AM Modules accepted: Orders [facility] 03-22-2023 Note Addended by: OSCAR HERNÁNDEZ on: 03/22/2023 08:48 AM Modules accepted: Orders [facility] 03-22-2023 Note Addended by: OSCAR HERNÁNDEZ on: 03/22/2023 08:48 AM Modules accepted: Orders [facility] 03-22-2023 Note Addended by: OSCAR HERNÁNDEZ on: 03/22/2023 08:48 AM Modules accepted: Orders [facility] 03-22-2023 Telephone encounter Note Papito please [facility] 03-16-2023 Note [facility] SURGICAL WEIGHT LOSS MANAGEMENT PROGRAM PROGRESS NOTE FOLLOW UP Patient: Mirlande Beltrán Date of : 1955 Service Date: 03/16/2023 [place] Visit number: 2 of 3 Pre Program Weight Metrics Date of Initial Consultation:@FLOWLAST(8961)@ Initial Weight: @FLOWLAST([id number])@ Initial BMI: @FLOWLAST([id number])@ [place] Body Weight: @FLOWLAST([id number])@ Excess Body Weight: @FLOWLAST([id number])@ Follow Up Weight Metrics Last Three Weights [...] home O2 Completed by: Ethel Montanez MA [facility] 03-16-2023 History of Presen t illness Narrative [facility] [place] SURGICAL WEIGHT LOSS MANAGEMENT PROGRAM PROGRESS NOTE FOLLOW UP Patient: Mirlande Beltrán Date of : 1955 Service Date: 03/16/2023 DE Visit number: 2 of 3 Pre Program Weight Metrics Date of Initial Consultation:@FLOWLAST(8961)@ Initial Weight: @FLOWLAST([id number])@ Initial BMI: @FLOWLAST([id number])@ [place] Body Weight: @FLOWLAST([id number])@ Excess Body Weight: @FLOWLAST([id number])@ Follow Up Weight Metrics Last Three Weights [...] mention of constipation. -A nurse practitioner in [place], [place] manages the semaglutide -Per Ms. Beltrán: Semaglutide was held per a vehicle calibration engineer's recommendation (Dr. Soares), but now OK to resume (per Dr. Soares). Ms. Beltrán will follow up with Dr. Soares and the nurse practitioner in [place] regarding resumption dosing -Discussed cessation of the [...] as needed. CHOLECALCIFEROL (VITAMIN D-3) 250 MCG (32917 UT) CAPSULE 10,000 Units before bedtime. DULOXETINE [...] listed in Epic. documented in this encounter [facility] 03-16-2023 History of Presen t illness Narrative [facility] SURGICAL WEIGHT LOSS MANAGEMENT PROGRAM PROGRESS NOTE FOLLOW UP Patient: Mirlande Beltrán Date of : 1955 Service Date: 03/16/2023 [place] Visit number: 2 of 3 Pre Program Weight Metrics Date of Initial Consultation:@FLOWLAST(8961)@ Initial Weight: @FLOWLAST([id number])@ Initial BMI: @FLOWLAST([id number])@ [place] Body Weight: @FLOWLAST([id number])@ Excess Body Weight: @FLOWLAST([id number])@ Follow Up Weight Metrics Last Three Weights [...] mention of constipation. -A nurse practitioner in [place], [place] manages the semaglutide -Per Ms. Beltrán: Semaglutide was held per a vehicle calibration engineer's recommendation (Dr. Soares), but now OK to resume (per Dr. Soares). Ms. Beltrán will follow up with Dr. Soares and the nurse practitioner in [place] regarding resumption dosing -Discussed cessation of the [...] as needed. CHOLECALCIFEROL (VITAMIN D-3) 250 MCG (23156 UT) CAPSULE 10,000 Units before bedtime. DULOXETINE [...] listed in Epic. documented in this encounter [facility] 03-13-2023 Telephone encounter Note Spoke to pt about Ig G lambda that showed up on SIFE. This lab set was ordered by DR Meraz. We received as some of the lab we need are in the set. Pt states that this issue is managed by her Bag Filler in [place]. She will call his office and have recent office note faxed to me. Then I will update the medical history. She also has her own Barrel Line Operator and Certified Ophthalmic Assistant. Dr Lambert, and Abelardo Charlton, respectively. Both are in [place]. I have faxed our clearance form to both offices. DR Lambert- [phone] Charlton - [phone] Pt reports she had an EGD by GI and then GES Monday -normal per pt. She will have these records faxed to me. [facility] 03-13-2023 Miscellaneous Notes Spoke to pt about Ig G lambda that showed up on SIFE. This lab set was ordered by DR Meraz. We received as some of the lab we need are in the set. Pt states that this issue is managed by her Bag Filler in [place]. She will call his office and have recent office note faxed to me. Then I will update the medical history. She also has her own Barrel Line Operator and Certified Ophthalmic Assistant. Dr Lambert, and Abelardo Charlton, respectively. Both are in [place]. I have faxed our clearance form to both offices. 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 Initial New [facility] surgical patient Navigation & Financial Counseling Discussion [...] 1) Scheduled at new pt surgeon visit: Performing Artist (RD) for a Nutrition Assessment (BNA) and [...] and after surgery. documented in this encounter [facility] 02-10-2023 History of Presen t illness Narrative [facility] BARIATRIC NUTRITION ASSESSMENT / [...] lost Amount regained Most successful Why Weight [facility] 2011 50 lb all Why Weight [...] 1 cup low fat cottage cheese; light paraguayan; grooved Cheezits; or tomato with 1 cup [...] breakfast (currently about 5-6 carb choices at [facility]) and increase protein-ideas discussed per pt preferences Materials Provided: BNA packet Grocery List Non-Starchy Vs Starchy Vegetable list Support Group Handout Follow up: PRN Pt encouraged to call/MyChart with questions. Bariatric Nutrition Assessment completed by: Monica Tolentino RD documented in this encounter [facility] 02-09-2023 History of Presen t illness Narrative [facility] SURGICAL WEIGHT LOSS MANAGEMENT PROGRAM SUPERVISED DIET AND EXERCISE ROOMING: INITIAL VISIT Patient: Mirlande Beltrán Date of : 1955 Service Date: 02/09/2023 [...] Weight: 315 lb 12.8 oz (143 kg) [place] Body Weight: 128 lb (58.1 kg) Initial [...] home O2 Completed by: Ethel Montanez MA [facility] SURGICAL WEIGHT LOSS MANAGEMENT PROGRAM [...] Past Surgical History: Procedure Laterality Date APPENDECTOMY 1971 W CYST REMOVAL CARDIAC CATHETERIZATION 2020 CARDIOVERSION [...] as needed. CHOLECALCIFEROL (VITAMIN D-3) 250 MCG (85653 UT) CAPSULE 10,000 Units before bedtime. DULOXETINE [...] (143 kg) Initial BMI: Initial BMI: 54.63 [place] Body Weight: [place] Body Weight: 128 lb (58.1 kg) Excess [...] DIET HISTORY FORM with patient (located in Barrel Filler) I reviewed all of the patient's medications [...] no current symptoms. 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 Initial New [facility] surgical patient Navigation & Financial Counseling Discussion [...] 1) Scheduled at new pt surgeon visit: Performing Artist (RD) for a Nutrition Assessment (BNA) and [...] and after surgery. documented in this encounter [facility] 01-27-2023 Note Addended by: JUANA AUGUSTIN on: 01/27/2023 09:10 AM Modules accepted: Orders [facility] 01-27-2023 Note Addended by: JUANA AUGUSTIN on: 01/27/2023 09:10 AM Modules accepted: Orders [facility] 01-27-2023 Note Addended by: JUANA AUGUSTIN on: 01/27/2023 09:10 AM Modules accepted: Orders [facility] 01-27-2023 Note Addended by: JUANA AUGUSTIN on: 01/27/2023 09:10 AM Modules accepted: Orders [facility] 01-27-2023 Note Addended by: JUANA AUGUSTIN on: 01/27/2023 09:10 AM Modules accepted: Orders [facility] 01-27-2023 Note Addended by: JUANA AUGUSTIN on: 01/27/2023 09:10 AM Modules accepted: Orders [facility] 01-27-2023 Note Addended by: JUANA AUGUSTIN on: 01/27/2023 09:10 AM Modules accepted: Orders [facility] 01-27-2023 Note Addended by: JUANA AUGUSTIN on: 01/27/2023 09:10 AM Modules accepted: Orders [facility] 01-27-2023 Telephone encounter Note Noted. Signed. 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 Initial New [facility] surgical patient Navigation & Financial Counseling Discussion [...] 1) Scheduled at new pt surgeon visit: Performing Artist (RD) for a Nutrition Assessment (BNA) and [...] and after surgery. documented in this encounter [facility] 01-27-2023 Note Addended by: DARIA FELIPE on: 01/27/2023 08:55 AM Modules accepted: Orders [facility] 01-27-2023 Note Addended by: DARIA FELIPE on: 01/27/2023 08:55 AM Modules accepted: Orders [facility] 01-27-2023 Note Addended by: DARIA FELIPE on: 01/27/2023 08:55 AM Modules accepted: Orders [facility] 01-27-2023 Note Addended by: DARIA FELIPE on: 01/27/2023 08:55 AM Modules accepted: Orders [facility] 01-27-2023 Note Addended by: DARIA FELIPE on: 01/27/2023 08:55 AM Modules accepted: Orders [facility] 01-27-2023 Note Addended by: DARIA FELIPE on: 01/27/2023 08:55 AM Modules accepted: Orders [facility] 01-27-2023 Note Addended by: DARIA FELIPE on: 01/27/2023 08:55 AM Modules accepted: Orders [facility] 01-27-2023 Note Addended by: DARIA FELIPE on: 01/27/2023 08:55 AM Modules accepted: Orders [facility] 01-27-2023 Telephone encounter Note Orders pended, pre-op checklist scanned, EGD order sent to ALS [facility] 01-27-2023 Telephone encounter Note PLAN Encounter Diagnoses [...] to optimize bl TKA / Hx of DC 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 [facility] 01-18-2023 Note Initial New BCC surg ical [...] 1) Scheduled at new pt surgeon visit: Performing Artist (RD) for a Nutrition Assessment (BNA) and [...] and lab/testing results before and after surgery. [facility] 01-18-2023 Telephone encounter Note Initial New [facility] surgical patient Navigation & Financial Counseling Discussion [...] 1) Scheduled at new pt surgeon visit: Performing Artist (RD) for a Nutrition Assessment (BNA) and [...] and lab/testing results before and after surgery. [facility] 01-18-2023 History of Presen t illness Narrative [facility] SURGICAL WEIGHT LOSS MANAGEMENT PROGRAM [...] not included. ASAD MOY MD , FACS, [facility] MINIMALLY INVASIVE & METABOLIC / BARIATRIC SURGERY [facility] BARIATRIC EVALUATION - HISTORY AND PHYSICAL 01/18/2023 PATIENT: Mirlande Beltrán DATE OF : 1955 - HISTORY OF PRESENT ILLNESS Chief Complaint: Obesity and associated conditions. Mirlande Beltrán is a 67 y.o. female with obesity and associated conditions who presents to the [facility] [place] for evaluation for metabolic/bariatric surgery. 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 MOY MD, FACS, [facility] Mattress Specialist - [facility] [place] [facility] Load Builder - Advanced GI MIS, Foregut and Bariatric Surgery Fellowship ---[facility]--- Patient Care Team: Arthur Gamez MD as PCP - General (Family Medicine) documented in this encounter [facility] 01-18-2023 History of Presen t illness Narrative [facility] SURGICAL WEIGHT LOSS MANAGEMENT PROGRAM Rooming [...] not included. ASAD MOY MD , FACS, [facility] MINIMALLY INVASIVE & METABOLIC / BARIATRIC SURGERY [facility] BARIATRIC EVALUATION - HISTORY AND PHYSICAL 01/18/2023 PATIENT: Mirlande Beltrán DATE OF : 1955 - HISTORY OF PRESENT ILLNESS Chief Complaint: Obesity and associated conditions. Mirlande Beltrán is a 67 y.o. female with obesity and associated conditions who presents to the [facility] [place] for evaluation for metabolic/bariatric surgery. 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 MOY MD, FACS, [facility] Mattress Specialist - [facility] [place] / [facility]ric Care Center Load Builder - Advanced GI MIS, Foregut and Bariatric Surgery Fellowship ---[facility]--- Patient Care Team: Arthur Gamez MD as PCP - General (Family Medicine) documented in this encounter [facility] documented in this encounter [facility]* Diagnosis Sleep apnea, unspecified type- Primary Primary hypertension Unspecified essential hypertension Back pain, unspecified back location, unspecified back pain laterality, unspecified chronicity Hyperlipidemia, unspecified hyperlipidemia type Morbid obesity with BMI of 50.0-59.9, adult (HCC) Gastroesophageal reflux disease, unspecified whether esophagitis present Arthralgia, unspecified joint Prediabetes Other abnormal glucose documented in this encounter [facility]* Diagnosis Sleep apnea, unspecified type- Primary Primary hypertension Unspecified essential hypertension Back pain, unspecified back location, unspecified back pain laterality, unspecified chronicity Hyperlipidemia, unspecified hyperlipidemia type Morbid obesity with BMI of 50.0-59.9, adult (HCC) Gastroesophageal reflux disease, unspecified whether esophagitis present Arthralgia, unspecified joint Prediabetes Other abnormal glucose documented in this encounter [facility]* Diagnosis Morbid obesity due to excess calories (HCC)- Primary KISHOR (obstructive sleep apnea) Obstructive sleep apnea (adult) (pediatric) Hypertension, unspecified type documented in this encounter [facility]* Diagnosis Primary hypertension- Primary Unspecified essential hypertension documented in this encounter [facility]* Diagnosis Morbid obesity due to excess calories (HCC)- Primary KISHOR (obstructive sleep apnea) Obstructive sleep apnea (adult) (pediatric) Hypertension, unspecified type documented in this encounter [facility]* Diagnosis Morbid obesity due to excess calories (HCC)- Primary Hypertension, unspecified type documented in this encounter [facility]* Diagnosis Morbid obesity due to excess calories (HCC)- Primary Hypertension, unspecified type documented in this encounter [facility]* Diagnosis Sleep apnea, unspecified type- [...] tobacco use screening documented in this encounter [facility]* Diagnosis Morbid obesity due to excess calories (HCC)- Primary Hypertension, unspecified type documented in this encounter [facility]* Diagnosis Sleep apnea, unspecified type- [...] tobacco use screening documented in this encounter [facility]* Diagnosis Sleep apnea, unspecified type- [...] tobacco use screening documented in this encounter [facility]* Diagnosis Morbid obesity due to excess calories (HCC)- Primary Hypertension, unspecified type Morbid (severe) obesity due to excess calories (HCC) documented in this encounter [facility]* Diagnosis Morbid obesity with BMI of 50.0-59.9, adult (HCC)- Primary Morbid (severe) obesity due to excess calories (HCC) documented in this encounter [facility]* Diagnosis KISHOR (obstructive sleep apnea)- Primary Obstructive sleep apnea (adult) (pediatric) Primary hypertension Unspecified essential hypertension Gastroesophageal reflux disease, unspecified whether esophagitis present Hyperlipidemia, unspecified hyperlipidemia type Back pain, unspecified back location, unspecified back pain laterality, unspecified chronicity Morbid obesity with BMI of 50.0-59.9, adult (HCC) Paroxysmal atrial fibrillation (HCC) Atrial fibrillation Biliary sludge Other specified disorders of biliary tract Morbid (severe) obesity due to excess calories (HCC) documented in this encounter [facility]* Diagnosis Morbid obesity with BMI of 50.0-59.9, adult (HCC)- Primary Morbid obesity with BMI of 50.0-59.9, adult (HCC) Morbid (severe) obesity due to excess calories (HCC) documented in this encounter [facility]* Diagnosis KISHOR (obstructive sleep apnea)- Primary Obstructive sleep apnea (adult) (pediatric) Primary hypertension Unspecified essential hypertension Gastroesophageal reflux disease, unspecified whether esophagitis present Hyperlipidemia, unspecified hyperlipidemia type Back pain, unspecified back location, unspecified back pain laterality, unspecified chronicity Morbid obesity with BMI of 50.0-59.9, adult (HCC) Paroxysmal atrial fibrillation (HCC) Atrial fibrillation Biliary sludge Other specified disorders of biliary tract documented in this encounter [facility] note* Diagnosis Sleep apnea, unspecified type Primary hypertension Unspecified essential hypertension Back pain, unspecified back location, unspecified back pain laterality, unspecified chronicity Hyperlipidemia, unspecified hyperlipidemia type Morbid obesity with BMI of 50.0-59.9, adult (HCC) documented in this encounter [facility] note* Diagnosis KISHOR (obstructive sleep apnea)- Primary Obstructive sleep apnea (adult) (pediatric) Primary hypertension Unspecified essential hypertension Gastroesophageal reflux disease, unspecified whether esophagitis present Hyperlipidemia, unspecified hyperlipidemia type Back pain, unspecified back location, unspecified back pain laterality, unspecified chronicity Morbid obesity with BMI of 50.0-59.9, adult (HCC) Deficiency of multiple nutrient elements Other nutritional deficiency S/P gastric sleeve procedure BMI 50.0-59.9, adult (HCC) Fatty (change of) liver, not elsewhere classified documented in this encounter [facility] for referral (narrative)* Consultation (Routine) - Pending Review Specialty Diagnoses / Procedures Referred By Contac t Referred To Contact Pulmonary Disease / Pulmonology Diagnoses Sleep apnea, unspecified type Primary hypertension Hyperlipidemia, unspecified hyperlipidemia type Morbid obesity with BMI of 50.0-59.9, adult (HCC) Procedures [place] OFFICE/OUTPATIENT [facility] MDM 60-74 MINUTES Juana Augustin, GLOBAL CATEGORY MANAGER - SEASONAL CUSTOMER SERVICE ASSOCIATE [address] [place] [address] [facility] Pulm [facility]nc [address] [place] [address] Referral ID Status Reason Start Date Expiration Date Visits Requested Visits Authorized [id number] Pending Review Specialty Services Required 01/27/2023 01/27/2024 1 1 * Consultation (Elective) - Pending Review Specialty Diagnoses / Procedures Referred By Contac t Referred To Contact Cardiology Diagnoses Sleep apnea, unspecified type Primary hypertension Hyperlipidemia, unspecified hyperlipidemia type Morbid obesity with BMI of 50.0-59.9, adult (HCC) Procedures [place] OFFICE/OUTPATIENT [facility] 60-74 MINUTES Juana Augustin, CLAUDY - SEASONAL CUSTOMER SERVICE ASSOCIATE 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 Advance Directives and Livin g Will 08/03/2023 9:54 AM Latest Code Status on File Code Status Date Activated Date Inactivated Comments Full Code 08/03/2023 5:43 PM Code Status History Code Status Date Activated Date Inactivated Comments Full Code 08/03/2023 10:15 AM 08/03/2023 5:43 PM Documents on File Type Date Recorded Patient 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 Cutter Expl 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 Advance Directives and Livin g Will 08/03/2023 9:54 AM Latest Code Status on File Code Status Date Activated Date Inactivated Comments Full Code 08/03/2023 5:43 PM 08/04/2023 5:15 PM Code Status History Code Status Date Activated Date Inactivated Comments Full Code 08/03/2023 10:15 AM 08/03/2023 5:43 PM Latest Code Status on File Code Status Date Activated Date Inactivated Comments Full Code 08/03/2023 5:43 PM 08/04/2023 5:15 PM Summary Purpose Family History No Family History Records Found Additional Source Comments Reason for Visit (unrecogniz ed section and content) Specialty Diagnoses / Procedures Referred By Kerrie t Referred To Contact Bariatrics Diagnoses Morbid (severe) obesity due to excess calories (HCC) Procedures Eval & Treat Arthur Gamez MD [address] [facility] [address] [place] [address] Asad Moy MD [address] [place] [address] Referral ID Status Reason Start Date Expiration Date V isits Requested Visits Authorized [id number] Pending Review 12/27/2022 12/27/2023 1 1 Reason Onset Date Comments Financial File 01/18/2023 Financial File 2 023 Surgery Scheduling 01/18/2023 Initial sched uling-orders placed Reason Comments Weight Loss D/E NEW 1 of 3 Reason Comments Nutrition Counseling BNA initial Reason Comments Weight Loss D/E 2 of 3 Reason Comments Weight Loss D/E 3/3 Reason Onset Date Comments OTHER 07/13/2023 Scheduling FPOV Reason Comments Weight Management FPOV Reason Onset Date Comments Anticoagulation 07/12/2023 lovenox Specialty Diagnoses / Procedures Referred By Kerrie montero Referred To Contact Diagnoses Morbid (severe) obesity due to excess calories (HCC) Morbid (severe) obesity due to excess calories (HCC) [E66.01] Procedures [place] LAPS GSTRC RSTRICTIV PX LONGITUDINAL GASTRECTOMY ROBOTIC SLEEVE GASTRECTOMY WITH LIVER WEDGE BIOPSY, POSSIBLE OPEN Asad Moy MD [address] [place] [address] [address] [place] [address] Referral ID Status Reason Start Date Expiration Date Visits Re quested Visits Authorized [id number] 1 1 Reason Comments Bariatrics Post Op Follow-up 1W Care Teams (unrecognized sec tion and content) Glass Products Inspector Relationship Specialty Start Date End Date Arthur Gamez MD [address] [place] [address] PCP - General Family Medicine 01/02/23 Asad Moy MD [address] [place] [address] Surgeon General Surgery 01/27/23 Glass Products Inspector Relationship Specialty Start Date End Date Arthur Gamez MD [address] [place] [phone] PCP - General Family Medicine 01/02/23 Asad Moy MD [address] [place], [place] [id number] Surgeon General Surgery 01/27/23 Glass Products Inspector Relationship Specialty Start Date End Date Arthur Gamez MD [address] [place] [address] PCP - General Family Medicine 01/02/23 Asad Moy MD [address] [place] [address] [address] [place], [place] [id number] Surgeon General Surgery 01/27/23 Glass Products Inspector Relationship Specialty Start Date End Date Arthur Gamez MD [address] [place] [phone] PCP - General Family Medicine 01/02/23 Asad Moy MD [address] [place] [address] [address] [place], [place] [id number] Surgeon General Surgery 01/27/23 Glass Products Inspector Relationship Specialty Start Date End Date Arthur Gamez MD [address] [place] [phone] PCP - General Family Medicine 01/02/23 Asad Moy MD [address] [place] [address] [address] [place], [place] [id number] Surgeon General Surgery 01/27/23 Glass Products Inspector Relationship Specialty Start Date End Date Artuhr Gamez MD [address] [place] [phone] PCP - General Family Medicine 01/02/23 Asad Moy MD [address] [place], [place] [phone] Surgeon General Surgery 01/27/23 Abelardo Charlton [address] [place] [address] Internal Medicine 03/13/23 Deondre Meraz. [facility] [place] [address] [place] [address] Oncology 03/13/23 Glass Products Inspector Relationship Specialty Start Date End Date Arthur Gamez MD [address] [place] [phone] PCP - General Family Medicine 01/02/23 Asad Moy MD [address] [place] [address] [address] [place], [place] [address] Surgeon General Surgery 01/27/23 Abelardo Charlton [address] [place] [address] Internal Medicine 03/13/23 Deondre Meraz. [facility] [place] [address] [place] [phone] Oncology 03/13/23 Glass Products Inspector Relationship Specialty Start Date End Date Arthur Gamez MD [address] [place] [phone] PCP - General Family Medicine 01/02/23 Asad M[address] [place] [address] Surgeon General Surgery 01/27/23 Abelardo Charlton [address] [place] [address] Internal Medicine 03/13/23 Deondre Meraz. [address] [place] [address] [place] [phone] Oncology 03/13/23 Glass Products Inspector Relationship Specialty Start Date End Date Arthur Gamez MD [address] [place] [address] PCP - General Family Medicine 01/02/23 Asad Moy MD [address] [place] [address] [address] [place], [place] [address] Surgeon General Surgery 01/27/23 Abelardo Charlton [address] [place] [address] Internal Medicine 03/13/23 Deondre Meraz. [address] [place] [address] [place] [phone] Oncology 03/13/23 Glass Products Inspector Relationship Specialty Start Date End Date Arthur Gamez MD [address] [place] [phone] PCP - General Family Medicine 01/02/23 Asad Moy MD [address] [place] [address] [address] [place], [place] [id number] Surgeon General Surgery 01/27/23 Abelardo Charlton [address] [place] [address] Internal Medicine 03/13/23 Deondre Meraz. [address] [place] [address] [place] [address] Oncology 03/13/23 Glass Products Inspector Relationship Specialty Start Date End Date Arthur Gamez MD [address] [facility] [address] [place] [address] PCP - General Family Medicine 01/02/23 Asad Moy MD [address] [place] [address] [address] [place], [place] [id number] Surgeon General Surgery 01/27/23 Abelardo Charlton [address] [place] [address] Internal Medicine 03/13/23 Deondre Meraz. [address] [place] [address] [place] [address] [phone] Oncology 03/13/23 Glass Products Inspector Relationship Specialty Start Date End Date Arthur Gamez MD [address] [facility] [address] [place] [address] PCP - General Family Medicine 01/02/23 Asad Moy MD [address] [place] [address] [address] [place] [address] Surgeon General Surgery 01/27/23 Abelardo Charlton [address] [place] [address] Internal Medicine 03/13/23 Deondre Meraz. [address] [place] [address] [place] [phone] Oncology 03/13/23 Glass Products Inspector Relationship Specialty Start Date End Date Arthur Gamez MD [address] [facility] [address] [place] [address] PCP - General Family Medicine 01/02/23 Asad Moy MD [address] [place] [address] [address] [place], [place] [id number] Surgeon General Surgery 01/27/23 Abelardo Charlton [address] [place] [address] Internal Medicine 03/13/23 Deondre Meraz. [address] [place] [address] [place] [address] Oncology 03/13/23 Radha Sterling, RN Registered Nurse 06/15/23 Glass Products Inspector Relationship Specialty Start Date End Date Arthur Gamez MD [address] [facility] [address] [place] [address] PCP - General Family Medicine 01/02/23 Asad Moy MD [address] [place] [address] [address] [place], [place] [address] Surgeon General Surgery 01/27/23 Abelardo Charlton [address] [place] [address] Internal Medicine 03/13/23 Deondre Meraz. [address] [place] [address] [place] [address] Oncology 03/13/23 Glass Products Inspector Relationship Specialty Start Date End Date Arthur Gamez MD [address] [facility] [address] [place] [address] PCP - General Family Medicine 01/02/23 Asad Moy MD [address] [place] [address] [address] [place], [place] [address] Surgeon General Surgery 01/27/23 Abelardo Charlton [address] [place] [address] Internal Medicine 03/13/23 Deondre Meraz. [address] [place] [address] [place] [address] Oncology 03/13/23 Radha Sterling, RN Registered Nurse 06/15/23 Glass Products Inspector Relationship Specialty Start Date End Date Arthur Gamez MD [address] [facility] [address] [place] [address] PCP - General Family Medicine 01/02/23 Asad Moy MD [address] [place] [address] [address] [place] [address] Surgeon General Surgery 01/27/23 Abelardo Charlton [address] [place] [address] Internal Medicine 03/13/23 Deondre Meraz. [address] [place] [address] [place] [address] Oncology 03/13/23 Radha Sterling, RN Registered Nurse 06/15/23 Glass Products Inspector Relationship Specialty Start Date End Date Arthur Gamez MD [address] [facility] [address] [place] [address] PCP - General Family Medicine 01/02/23 Asad Moy MD [address] [place] [address] [address] [place], [place] [id number] Surgeon General Surgery 01/27/23 Abelardo Charltno [address] [place] [address] Internal Medicine 03/13/23 Deond[address] [place], [place] [address] [address] [place] [address] Oncology 03/13/23 Radha Sterling, RN Registered Nurse 06/15/23 Glass Products Inspector Relationship Specialty Start Date End Date Arthur Gamez MD [address] [facility] [address] [place] [address] PCP - General Family Medicine 01/02/23 Asad Moy MD [address] [place] [address] [address] [place] [address] Surgeon General Surgery 01/27/23 Abelardo Charlton [address] [place] [address] Internal Medicine 03/13/23 Deondre Meraz. [address] [place] [address] [place] [address] [phone] Oncology 03/13/23 Radha Sterling, RN Registered Nurse 06/15/23 Glass Products Inspector Relationship Specialty Start Date End Date Arthur Gamez MD [address] [facility] [address] [place] [address] PCP - General Family Medicine 01/02/23 Asad Moy MD [address] [place] [address] [address] [place], [place] [id number] Surgeon General Surgery 01/27/23 Abelardo Charlton [address] [place] [address] Internal Medicine 03/13/23 Deondre Meraz. [address] [place] [address] [place] [address] Oncology 03/13/23 Radha Sterling, RN Registered Nurse 06/15/23 Glass Products Inspector Relationship Specialty Start Date End Date Arthur Gamez MD [address] [facility] [address] [place] [address] PCP - General Family Medicine 01/02/23 Glass Products Inspector Relationship Specialty Start Date End Date Arthur Gamez MD [address] [place] [address] PCP - General Family Medicine 01/02/23 Asad Moy MD [address] [place] [address] [address] [place], [place] [id number] Surgeon General Surgery 01/27/23 Abelardo Charlton [address] [place] [address] Internal Medicine 03/13/23 Deondre Meraz. [address] [place] [phone] Oncology 03/13/23 Radha Sterling, RN Registered Nurse 06/15/23 Scheduled Active and Recently Administ ered Medications (unrecognized section and content) Continuous Medication Order 08/02/2023 08/03/2023 08/04/2023 dextrose 5 % and sodium chloride 0.45 % with KCl 20 mEq/L infusion 100 mL/hr, IntraVENous, Continuous, Starting on Yuridia 08/03/23 at 1745, Phase II/On Unit 1832 (New Bag - Provider: Mukul Sal RN) 0040 (New Bag - Provider: Cruzito Orosco RN) lactated Ringer's (LR) infusion (CANCELED) 50 mL/hr, IntraVENous, Continuous, Starting on Yuridia 08/03/23 at 1030, Preprocedure, Upon admission to sameday - please start iv if patient does not have iv access. Use 500ml NS for patients on dialysis. 1238 (New Bag - Provider: CLAUDY Rockwell CRNA)1238 (Continued by Anesthesia - Provider: CLAUDY Rockwell CRNA)1431 (New Bag - Provider: CLAUDY Rockwell CRNA)1754 (Stopped - Provider: Mukul Sal RN) PRN Medication Order 08/02/2023 08/03/2023 08/04/2023 albuterol (2.5 MG/3ML) 0.083% nebulizer solution 2.5 mg 2.5 mg, Nebulization, Every 6 hours PRN, wheezing, Starting on [facility] 08/03/23 at 2000, Phase II/On Unit HYDROcodone-acetaminophen ([place]) 5-325 MG per tablet 1 tablet (CANCELED) 1 tablet, Oral, Every 4 hours PRN, moderate pain (4-6), severe pain (7-10), Starting on [facility] 08/03/23 at 1743, Phase II/On Unit, Maximum dose of acetaminophen is 4000 mg from all sources in 24 hours. 2029 (Given - Provider: Cruzito Orosco RN) 0144 (Given - Provider: Cruzito Orosco, JONAH)0554 (Given - Provider: Cruzito Orosco RN) HYDROmorphone (Dilaudid) injection 0.25 mg(Linked Group 1) 0.25 mg, IntraVENous, Every 3 hours PRN, moderate pain (4-6), Starting on Yur[facility] 24 at 1743, Phase II/On Unit, If oral and IV narcotics ordered, use oral first and only use IV if oral is ineffective or cannot take oral. Do Not give oral and IV within 1 hour of each other unless specifically ordered. HYDROmorphone (Dilaudid) injection 0.5 mg (CANCELED) 0.5 mg, IntraVENous, Every 5 min PRN, severe pain (7-10), Starting on [facility] 08/03/23 at 1444, For 4 doses, Recovery (only), Phase I and Phase II- Initial therapy for severe pain (7-10). Restricted to a 90 minute time frame starting when the patient can verbally state their pain score. If after 2 doses the pain score does not decrease by more than one point, then call the provider. If oral meds are utilized, do not return to initial therapy medications. 1500 (Given - Provider: Radha Mcgill RN)1533 (Given - Provider: Radha Mcgill RN) HYDROmorphone (Dilaudid) injection 0.5 mg(Linked Group 1) 0.5 mg, IntraVENous, Every 3 hours PRN, severe pain (7-10), Starting on Y[facility] 24 at 1743, Phase II/On Unit, If oral and IV narcotics ordered, use oral first and only use IV if oral is ineffective or cannot take oral. Do Not give oral and IV within 1 hour of each other unless specifically ordered. hydrOXYzine HCl (Atarax) tablet 10 mg 10 mg, Oral, Every 8 hours PRN, itching, Starting on [facility] 08/03/23 at 1743, Phase II/On Unit labetalol (Normodyne,Trandate) injection 10 mg 10 mg, IntraVENous, Every 4 hours PRN, high blood pressure, Starting on [facility] 08/03/23 at 1743, Phase II/On Unit, First line: for SBP > 160, hold for HR < 60 naloxone (Narcan) injection 0.4 mg 0.4 mg, IntraVENous, Every 5 min PRN, opioid reversal, respiratory depression, Starting on [facility] 08/03/23 at 1803, +++ For RR <10, pinpoint pupils, over sedation for opioid reversal - MUST notify regional guide provider immediately after first dose, may give IM or SQ if no IV access +++ ondansetron (Zofran) injection 4 mg(Linked Group 2) 4 mg, IntraVENous, Every 6 hours PRN, nausea, vomiting, Starting on [facility] 08/03/23 at 1743, Phase II/On Unit, 1st Line. Give IV if patient is unable to take orally. If inadequate response within 60 minutes, proceed to next-line agent or contact provider if no further options ordered. ondansetron ODT (Zofran-ODT) disintegrating tablet 4 mg(Linked Group 2) 4 mg, Oral, Every 8 hours PRN, nausea, vomiting, Starting on [facility] 08/03/23 at 1743, Phase II/On Unit, 1st Line. If inadequate response within 60 minutes, proceed to next-line agent or contact provider if no further options ordered. Patient should allow tablet to dissolve on tongue. Do not remove from blister pack until just before administering. oxyCODONE-acetaminophen (Percocet) 5-325 MG per tablet 1 tablet 1 tablet, Oral, Every 6 hours PRN, moderate pain (4-6), Starting on Mon08/04/23 at 1245, Maximum dose of acetaminophen is 4000 mg from all sources in 24 hours. 1306 (Given - Provid er: Yoanna Palmer RN) sodium chloride 0.9 % infusion 5-250 mL/hr, IntraVENous, PRN, if patient receiving piggyback infusions and maintenance fluids are not ordered OR KVO fluids to protect IV site / prevent frequent line interruptions/ long duration, Starting on [facility] 08/03/23 at 1743, Phase II/On Unit, For piggyback infusion, administer at same rate as piggyback for a total of 25 mL. Enter 25 mL into dose field and piggyback rate into rate field of order. If piggyback is infusing at a rate less than 100 mL/hr, enter 25 mL into dose field and 100 mL/hr into rate field of order. For KVO fluids, enter rate of 20 mL/hr or less into rate field of order. sodium chloride 0.9 % irrigation solution (CANCELED) As needed, Starting on [facility] 08/03/23 at 1326, Intraprocedure 1326 (Given - Provider: Asad Moy MD) sodium chloride 0.9% (NS) flush 10 mL 10 mL, IntraVENous, PRN, line care, Starting on [facility] 08/03/23 at 1743, Phase II/On Unit, After every IV line use sterile water irrigation solution (CANCELED) As needed, Starting on [facility] 08/03/23 at 1326, Intraprocedure 1326 (Given - Provider: Asad Moy MD) Linked Groups Order Group 1: HYDROmorphone (Dilaudid) injection 0.25 mgJump to med 0.25 mg, IntraVENous, Every 3 hours PRN, moderate pain (4-6), Starting on [facility] 08/03/23 at 1743, Phase II/On Unit, If oral and IV narcotics ordered, use oral first and only use IV if oral is ineffective or cannot take oral. Do Not give oral and IV within 1 hour of each other unless specifically ordered. Or HYDROmorphone (Dilaudid) injection 0.5 mgJump to med 0.5 mg, IntraVENous, Every 3 hours PRN, severe pain (7-10), Starting on [facility] 08/03/23 at 1743, Phase II/On Unit, If oral and IV narcotics ordered, use oral first and only use IV if oral is ineffective or cannot take oral. Do Not give oral and IV within 1 hour of each other unless specifically ordered. Group 2: ondansetron ODT (Zofran-ODT) disintegrating tablet 4 mgJump to med 4 mg, Oral, Every 8 hours PRN, nausea, vomiting, Starting on Y[facility] 24 at 1743, Phase II/On Unit, 1st Line. If inadequate response within 60 minutes, proceed to next-line agent or contact provider if no further options ordered. Patient should allow tablet to dissolve on tongue. Do not remove from blister pack until just before administering. Or ondansetron (Zofran) injection 4 mgJump to med 4 mg, IntraVENous, Every 6 hours PRN, nausea, vomiting, Starting on [facility] 08/03/23 at 1743, Phase II/On Unit, 1st Line. Give IV if patient is unable to take orally. If inadequate response within 60 minutes, proceed to next-line agent or contact provider if no further options ordered. INFORMATION SOURCE (unrecogn ized section and content) [...] BE BASED ON THE PRIMARY CLINICAL RECORDS. [email or web address] provides no warranty or guarantee of the accuracy or completeness of information in this document.
== END | disposition home or self-care (01) ==
LOC: CVS 10:21
PROVIDERS: PCP Family Medicine
DX: R60.0 Localized edema (principal)
CPT/HCPCS: 93970

== ENCOUNTER → 2023-09-19 | Outpatient (CLI) | payer MEDICARE, OTHER, SELFPAY ==
[2022-10-18 10:25] VITALS: BMI 53.1
[2023-09-19 12:38] LABS: Absolute Lymphocyte Count 1.98 X10^3/uL (0.83-4.51); Absolute Neutrophil Count 4.3 X10^3/uL (2.0-7.7); Basophil# 0.04 X10^3/uL; Basophil% 0.6 % (0-1); Eosinophil# 0.17 X10^3/uL; Eosinophils% 2.4 % (0-5); Hematocrit 37.4 % (37-47); Hemoglobin 11.8 g/dL (12.0-15.0); Lymphocyte # 1.98 X10^3/ul (0.83-4.51); Lymphocyte % 27.7 % (19-41); Mean Corp Hgb Conc 31.6 g/dL (32-36); Mean Corpuscular Hgb 28.4 pg (27.0-32.0); Mean Corpuscular Volume 90.1 fL (81-99); Mean Platelet Vol. 12.5 fl (6.2-12.0); Monocyte# 0.62 X10^3/uL; Monocyte% 8.7 % (0-10); NRBC Flagged by Analyzer 0 % (0-5); Neutrophil # 4.32 X10^3/uL (2.7-7.7); Neutrophil % 60.2 % (47-70); Platelet Count 244 K/mm3 (150-450); RBC Distribution Width SD 49.9 fl (35.1-43.9); Red Blood Count 4.15 M/mm3 (4.2-5.4); White Blood Count 7.2 K/mm3 (4.4-11.0)
[2023-09-19 13:00] LABS: Vitamin D,25 Hydroxy 53.6 ng/mL
[2023-09-19 13:23] LABS: ALB/GLOB Ratio 0.8 RATIO (0.9-2.4); AST(SGOT) 24 U/L (15-37); Alanine Aminotransfer ALT/SGPT 23 U/L (13-56); Albumin, Serum 3.2 g/dL (3.2-5.0); Alkaline Phosphatase 87 U/L (45-117); Anion Gap 7 (5-15); BUN 15 mg/dL (7-18); BUN/Creat Ratio 21.5 RATIO (10-20); Calcium,Total 9.5 mg/dL (8.5-10.1); Chloride 106 mmol/L (98-107); Cholesterol 104 mg/dL (200); EST Glomerular Filtration Rate 89 mL/min (>60); Est Glom Filt Rate - Afr Amer 107 mL/min (>60); Globulin 4.2 g/dL (2.2-4.2); Glucose 107 mg/dL (74-106); High Density Lipoprotein 49 mg/dL; Magnesium 2.3 mg/dL (1.6-2.6); Potassium 3.4 mmol/L (3.5-5.1); Protein, Total 7.4 g/dL (6.4-8.2); Sodium Level 141 mmol/L (136-145); Thyroid Stim Hormone (TSH) 1.75 uIU/mL (0.358-3.74); Triglycerides 91 mg/dL; Very Low Density Lipoprotein 18 mg/dL (5-40)
[2023-09-19 13:32] LABS: GGTP 12 U/L (5-55)
[2023-09-19 14:44] LABS: Hemoglobin A1c 5.8 % (3.8-5.6)
== END | disposition home or self-care (01) ==
LOC: MFPLAB 09:51
PROVIDERS: Internal Medicine Medical Oncology; PCP Family Medicine; Visit Provider Family Medicine
DX: R73.02 Impaired glucose tolerance (oral) (principal); I48.0 Paroxysmal atrial fibrillation; E66.01 Morbid (severe) obesity due to excess calories; E55.9 Vitamin D deficiency, unspecified; I10 Essential (primary) hypertension; R60.0 Localized edema; E78.5 Hyperlipidemia, unspecified; D47.2 Monoclonal gammopathy
CPT/HCPCS: 36415; 80053; 80061; 82306; 82977; 83036; 83735; 84443; 85025

== ENCOUNTER → 2023-09-19 | Outpatient (CLI) | payer MEDICARE, OTHER, SELFPAY ==
[2022-10-18 10:25] VITALS: BMI 53.1
--- NOTE | 2023-09-19 13:05 | VDLE_ITS ---
Reason For Study: Bilateral leg swelling RIGHT LEFT GSV is normal. GSV is normal. CFV is compressible, spontaneous, phasic, CFV is compressible, spontaneous, phasic, competent and demonstrates normal competent, and demonstrates normal augmentation. augmentation. FV is compressible, spontaneous, phasic, FV is compressible, spontaneous, phasic, competent and demonstrates normal competent and demonstrates normal augmentation. augmentation. POP V is compressible, spontaneous, phasic, POP V is compressible, spontaneous, phasic, competent and demonstrates normal competent and demonstrates normal augmentation. augmentation. T/P Trunk is compressible. T/P Trunk is compressible. PTV is compressible. PTV is compressible. RT PerV is compressible. LT PerV is compressible. Procedure This is a venous duplex using B-mode, color flow and spectral Doppler. Exam performed in department. A preliminary report was called and/or faxed to Dr. Mendez. VL/Venous Duplex US - Satinder Extrem Interpretation Summary No evidence for acute deep venous thrombosis bilateral lower extremities with p atent and compressible bilateral great saphenous veins. Ordering Physician: Walter Mendez Referring Physician: Walter Mendez Performed By: Paulette Long RVT
== END | disposition home or self-care (01) ==
LOC: CVS 13:04
PROVIDERS: PCP Family Medicine; Referring Provider Family Medicine; Visit Provider Family Medicine
DX: R60.0 Localized edema (principal); I48.0 Paroxysmal atrial fibrillation; E66.01 Morbid (severe) obesity due to excess calories; R73.02 Impaired glucose tolerance (oral); E55.9 Vitamin D deficiency, unspecified; I10 Essential (primary) hypertension; D47.2 Monoclonal gammopathy; E78.5 Hyperlipidemia, unspecified
CPT/HCPCS: 36415; 80053; 80061; 82306; 82977; 83036; 83735; 84443; 85025; 93970

== ENCOUNTER 2023-10-12 08:00 | Outpatient (RCR) | payer MEDICARE, OTHER, SELFPAY ==
[2022-10-18 10:25] VITALS: BMI 53.1
--- NOTE | 2023-10-06 12:55 | HP.OTEVAL_ITS ---
Patient's Visit Information Visit Information Visit Information: ELEN ARMAS is a 68 year old F, referred to Occupational Therapy by Dr. Walter Mendez MD, with a diagnosis of lymphedema. Date of Evaluation: 09/28/23 Occupational Therapist: Monica Hitchcock, WALLY/Matt, CHT Subjective Subjective: This 68 year old female was seen for OT eval with dx of lymphedema. pt states she has struggled with swelling from time to time. Now swelling has not gone down. Pt states she would like to know what she can do to help mtg. her swelling. pt would like to get compression socks that can help support her legs. Lymphedema (Circumferential Measure) Mid-foot: right 22cm left 22.5cm Ankle: right 26.5cm left 27.5cm Lower calf: right 33cm left 36cm Largest calf: right 43cm left 47.5cm Below knee: right 42cm left 43cm Lower Limb Functional Index Lower Extremity Functional Score: 24 Goals Goal: Patient will demonstrate adequate knowledge of self-massage by the end of the second week.: Yes Goal: Patient will demonstrate adequate knowledge of skin care and precautions by the end of the first week.: Yes Goal: Patient will demonstrate adequate knowledge of therapeutic exercises by discharge.: Yes Goal: Patient will select an appropriate compression garment and demonstrate adequate knowledge of correct donning technique, care and wearing schedule by discharge.: Yes Goal: Patient will voice understanding of need to replace compression garment every four to six months by discharge.: Yes Rehabilitation General Assessment: pt demo with LE edema decreasing pts ind. with mobility. Pt would benefit from skilled OT services 3-4 visits to ensure pt demo understan ding of life long mtg. tools to assist pt in mtg. swelling and skin care. pt demo understanding and agree to POC. Rehabilitation Potential: Good Anticipated Interventions Anticipated Interventions: ADL Training, Education re Diagnosis, Education re Life-long lymphedema Management, Education re Skin Care and Precautions, Educa tion re Correct Donning Tech,Care&Wearing Sched Comp Garments and Home Program Visit Plan TEXT: Thank you for the opportunity to evaluate your patient. For Medicare and Medicare HMO plans, please review the plan of care and approve it. It will need to be FAXED BACK to us at [phone] for Medicare purposes. Please let me know if there are questions or concerns regarding this plan of care. Physician Signature: Date:
--- NOTE | 2024-02-09 09:14 | HP.OT.NRP ---
Patient Information Patient Information: ELEN ARMAS was seen in my office for initial evaluation on 09/28/23. The following Plan of Care was established for this patient: POC Established Plan: Pt to return or call with questions in 3-4 weeks Anticipated Interventions Anticipated Interventions: ADL Training, Education re Diagnosis, Education re Life-long lymphedema Management, Education re Skin Care and Precautions, Education re Correct Donning Tech,Care&Wearing Sched Comp Garments and Home Program Last Seen Last Seen: This patient was last seen in our office 10/12/23. Pertinent comments regarding their Occupational therapy will appear below: pt was seen for 3 OT sessions- No further apts scheduled at this time and due to time lapse in services pt is d/c. At this point I will be discontinuing this patient from occupational therapy. I would be happy to see this patient again in the future if found appropriate by the physician. Thank you! Monica Hitchcock, OTR/L, CHT
== END 2023-10-12 19:00 | disposition home or self-care (01) ==
LOC: OT 08:00
PROVIDERS: PCP Family Medicine; Visit Provider Family Medicine
DX: I89.0 Lymphedema, not elsewhere classified (principal)
CPT/HCPCS: 97165; 97166; 97530

== ENCOUNTER → 2023-10-30 | Outpatient (CLI) | payer MEDICARE, OTHER, SELFPAY ==
[2022-10-18 10:25] VITALS: BMI 53.1
[2023-10-30 13:10] LABS: Hematocrit 39.5 % (37-47); Hemoglobin 12.6 g/dL (12.0-15.0); Mean Corp Hgb Conc 31.9 g/dL (32-36); Mean Corpuscular Hgb 29.2 pg (27.0-32.0); Mean Corpuscular Volume 91.4 fL (81-99); Mean Platelet Vol. 11.5 fl (6.2-12.0); Platelet Count 289 K/mm3 (150-450); RBC Distribution Width CV 12.8 % (11.6-14.6); RBC Distribution Width SD 43.1 fl (35.1-43.9); Red Blood Count 4.32 M/mm3 (4.2-5.4); White Blood Count 8.2 K/mm3 (4.4-11.0)
[2023-10-30 13:32] LABS: Vitamin B12 705 pg/mL (211-911)
[2023-10-30 13:42] LABS: ALB/GLOB Ratio 0.8 RATIO (0.9-2.4); AST(SGOT) 22 U/L (15-37); Alanine Aminotransfer ALT/SGPT 19 U/L (13-56); Albumin, Serum 3.3 g/dL (3.2-5.0); Alkaline Phosphatase 100 U/L (45-117); Anion Gap 4 (5-15); BUN 18 mg/dL (7-18); BUN/Creat Ratio 21.3 RATIO (10-20); Calcium,Total 9.4 mg/dL (8.5-10.1); Chloride 105 mmol/L (98-107); Creatinine, Serum 0.84 mg/dL (0.55-1.02); EST Glomerular Filtration Rate 71 mL/min (>60); Est Glom Filt Rate - Afr Amer 86 mL/min (>60); Ferritin 71 ng/mL (8-252); Globulin 4.2 g/dL (2.2-4.2); Glucose 102 mg/dL (74-106); Iron 73 ug/dL (50-170); Magnesium 2.2 mg/dL (1.6-2.6); Protein, Total 7.5 g/dL (6.4-8.2); Sodium Level 137 mmol/L (136-145)
[2023-11-03 11:09] LABS: Vitamin B1, Thiamine 155.8 nmol/L (66.5-200.0); Zinc, Plasma or Serum 47 ug/dL (44-115)
== END | disposition home or self-care (01) ==
LOC: PAVLAB 12:11
PROVIDERS: PCP Family Medicine
DX: E61.7 Deficiency of multiple nutrient elements (principal)
CPT/HCPCS: 36415; 80053; 82607; 82728; 82746; 83540; 83735; 84425; 84630; 85027

== ENCOUNTER → 2023-11-28 | Outpatient (CLI) | payer MEDICARE, OTHER, SELFPAY ==
[2022-10-18 10:25] VITALS: BMI 53.1
--- NOTE | 2023-11-28 07:49 | BI_ITS ---
MAMMOGRAPHY - BILATERAL SCREENING REASON FOR EXAM: Female, 68 years old. Routine annual screening examination. PERTINENT HISTORY: Grandmother with breast cancer. TECHNIQUE: Digital bilateral breast bharath (3D mammographic acquisition) in the CC and MLO projections. 2-D mediolateral oblique (MLO) and craniocaudad (CC) views of both breasts were obtained. CAD: Full Field Digital Mammography with Computer Added Detection was performed. COMPARISON: Comparison is made with prior examination dated November 23, 2022 and December 22, 2020. FINDINGS: Breast Composition: There are scattered areas of fibroglandular density. There are no dominant masses or suspicious calcifications. Stable small left axillary lymph nodes. No other significant abnormalities are identified. There has been no significant change since the prior study. BI/SCRN MAMM (CAD)W/BHARATH BILAT IMPRESSION: Stable bilateral screening mammogram. Yearly follow-up mammogram recommended. (A) ASSESSMENT CATEGORY: BIRADS Category 2: Benign. A letter regarding these results will be sent to the patient by the facility within 30 days. Approximately 10% of breast cancers are not detected by mammography. A normal mammogram should not delay biopsy of a clinically suspicious abnormality. [id number] Electronically Signed: Alfie Barrera MD at 11:19 EDT ,
== END | disposition home or self-care (01) ==
PROVIDERS: PCP Family Medicine; Referring Provider Family Medicine; Visit Provider Family Medicine
DX: Z12.31 Encounter for screening mammogram for malignant neoplasm of breast (principal)
CPT/HCPCS: 77063; 77067

== ENCOUNTER → 2023-12-07 | Outpatient (CLI) | payer MEDICARE, OTHER, SELFPAY ==
[2022-10-18 10:25] VITALS: BMI 53.1
[2023-12-07 10:05] LABS: Absolute Lymphocyte Count 2.65 X10^3/uL (0.83-4.51); Absolute Neutrophil Count 4.2 X10^3/uL (2.0-7.7); Basophil# 0.04 X10^3/uL; Basophil% 0.5 % (0-1); Eosinophil# 0.23 X10^3/uL; Eosinophils% 2.9 % (0-5); Hematocrit 39.6 % (37-47); Hemoglobin 12.3 g/dL (12.0-15.0); Lymphocyte # 2.65 X10^3/ul (0.83-4.51); Lymphocyte % 33.7 % (19-41); Mean Corp Hgb Conc 31.1 g/dL (32-36); Mean Corpuscular Hgb 28.2 pg (27.0-32.0); Mean Corpuscular Volume 90.8 fL (81-99); Mean Platelet Vol. 13.3 fl (6.2-12.0); Monocyte# 0.75 X10^3/uL; Monocyte% 9.5 % (0-10); NRBC Flagged by Analyzer 0 % (0-5); Neutrophil # 4.18 X10^3/uL (2.7-7.7); Neutrophil % 53.1 % (47-70); Platelet Count 194 K/mm3 (150-450); RBC Distribution Width CV 12.4 % (11.6-14.6); RBC Distribution Width SD 41.3 fl (35.1-43.9); Red Blood Count 4.36 M/mm3 (4.2-5.4); White Blood Count 7.9 K/mm3 (4.4-11.0)
[2023-12-07 10:34] LABS: Vitamin D,25 Hydroxy 72.3 ng/mL
[2023-12-07 10:52] LABS: ALB/GLOB Ratio 0.7 RATIO (0.9-2.4); AST(SGOT) 17 U/L (15-37); Alanine Aminotransfer ALT/SGPT 22 U/L (13-56); Albumin, Serum 3.1 g/dL (3.2-5.0); Alkaline Phosphatase 92 U/L (45-117); Anion Gap 6 (5-15); BUN 19 mg/dL (7-18); BUN/Creat Ratio 20.8 RATIO (10-20); Calcium,Total 9.5 mg/dL (8.5-10.1); Chloride 106 mmol/L (98-107); Cholesterol 100 mg/dL (200); Creatinine, Serum 0.92 mg/dL (0.55-1.02); EST Glomerular Filtration Rate 65 mL/min (>60); Est Glom Filt Rate - Afr Amer 78 mL/min (>60); Globulin 4.3 g/dL (2.2-4.2); Glucose 94 mg/dL (74-106); High Density Lipoprotein 51 mg/dL; Magnesium 2.3 mg/dL (1.6-2.6); Potassium 4.2 mmol/L (3.5-5.1); Protein, Total 7.4 g/dL (6.4-8.2); Sodium Level 139 mmol/L (136-145); Triglycerides 79 mg/dL; Very Low Density Lipoprotein 16 mg/dL (5-40)
[2023-12-07 11:43] LABS: Hemoglobin A1c 5.3 % (3.8-5.6)
== END | disposition home or self-care (01) ==
LOC: MFPLAB 08:27
PROVIDERS: PCP Family Medicine; Visit Provider Family Medicine
DX: R73.02 Impaired glucose tolerance (oral) (principal); I48.0 Paroxysmal atrial fibrillation; E55.9 Vitamin D deficiency, unspecified; I10 Essential (primary) hypertension
CPT/HCPCS: 36415; 80053; 80061; 82306; 83036; 83735; 85025

== ENCOUNTER → 2024-01-11 | Outpatient (CLI) | payer MEDICARE, OTHER, SELFPAY ==
[2022-10-18 10:25] VITALS: BMI 53.1
== END | disposition home or self-care (01) ==
LOC: PSN 08:12
PROVIDERS: PCP Family Medicine; Referring Provider Nurse Practitioner Family; Visit Provider Nurse Practitioner Family
DX: Z01.810 Encounter for preprocedural cardiovascular examination (principal); I48.0 Paroxysmal atrial fibrillation; I10 Essential (primary) hypertension; E78.5 Hyperlipidemia, unspecified; R00.1 Bradycardia, unspecified
CPT/HCPCS: 93225; 93226

== ENCOUNTER → 2024-01-29 | Outpatient (CLI) | payer MEDICARE, OTHER, SELFPAY ==
[2022-10-18 10:25] VITALS: BMI 53.1
[2024-01-29 08:54] LABS: Hematocrit 40.4 % (37-47); Hemoglobin 12.9 g/dL (12.0-15.0); Mean Corp Hgb Conc 31.9 g/dL (32-36); Mean Corpuscular Hgb 27.7 pg (27.0-32.0); Mean Corpuscular Volume 86.9 fL (81-99); Mean Platelet Vol. 11.6 fl (6.2-12.0); Platelet Count 244 K/mm3 (150-450); RBC Distribution Width CV 12.9 % (11.6-14.6); RBC Distribution Width SD 40.8 fl (35.1-43.9); Red Blood Count 4.65 M/mm3 (4.2-5.4); White Blood Count 7.5 K/mm3 (4.4-11.0)
[2024-01-29 09:29] LABS: Vitamin B12 1171 pg/mL (211-911); Vitamin D,25 Hydroxy 84.5 ng/mL
[2024-01-29 10:11] LABS: ALB/GLOB Ratio 0.8 RATIO (0.9-2.4); AST(SGOT) 24 U/L (15-37); Alanine Aminotransfer ALT/SGPT 22 U/L (13-56); Albumin, Serum 3.5 g/dL (3.2-5.0); Alkaline Phosphatase 95 U/L (45-117); Anion Gap 7 (5-15); BUN 18 mg/dL (7-18); BUN/Creat Ratio 21.6 RATIO (10-20); Chloride 105 mmol/L (98-107); Cholesterol 98 mg/dL (200); Creatinine, Serum 0.84 mg/dL (0.55-1.02); EST Glomerular Filtration Rate 72 mL/min (>60); Est Glom Filt Rate - Afr Amer 87 mL/min (>60); Ferritin 72 ng/mL (8-252); Globulin 4.3 g/dL (2.2-4.2); Glucose 95 mg/dL (74-106); High Density Lipoprotein 49 mg/dL; Iron 99 ug/dL (50-170); Magnesium 2.5 mg/dL (1.6-2.6); Potassium 4.2 mmol/L (3.5-5.1); Protein, Total 7.8 g/dL (6.4-8.2); Sodium Level 139 mmol/L (136-145); Triglycerides 65 mg/dL; Very Low Density Lipoprotein 13 mg/dL (5-40)
[2024-01-31 18:08] LABS: Vitamin B1, Thiamine 162.3 nmol/L (66.5-200.0); Zinc, Plasma or Serum 76 ug/dL (44-115)
== END | disposition home or self-care (01) ==
LOC: PAVLAB 08:30
PROVIDERS: PCP Family Medicine; Referring Provider Registered Nurse Nephrology; Visit Provider Registered Nurse Nephrology
DX: K76.0 Fatty (change of) liver, not elsewhere classified (principal); E66.01 Morbid (severe) obesity due to excess calories; Z68.42 Body mass index [BMI] 45.0-49.9, adult; E61.7 Deficiency of multiple nutrient elements; E78.5 Hyperlipidemia, unspecified; G47.33 Obstructive sleep apnea (adult) (pediatric); I10 Essential (primary) hypertension; K21.9 Gastro-esophageal reflux disease without esophagitis
CPT/HCPCS: 36415; 80053; 80061; 82306; 82607; 82728; 82746; 83540; 83735; 84425; 84630; 85027

== ENCOUNTER 2024-02-27 08:04 | Emergency (ER) | payer MEDICARE, OTHER, SELFPAY ==
[2022-10-18 10:25] VITALS: BMI 53.1
[2024-02-27 08:05] VITALS: BP 149/88; PULSE 84; RESP 16; TEMP 36.2; O2SAT 96; BMI 40.9
--- NOTE | 2024-02-27 08:19 | US_ITS ---
STUDY: ABDOMINAL ULTRASOUND - RIGHT UPPER QUADRANT REASON FOR VISIT: Female, 68 years old . Right upper quadrant pain. TECHNIQUE: Ultrasound evaluation of the right upper quadrant was performed with real-time and static emerson-scale imaging. TECHNICAL QUALITY: Adequate. COMPARISON: Comparison is made with prior study of April 05, 2023. FINDINGS: Liver: The liver measures 15.4 cm. There is normal echogenicity of the liver. The bile ducts are within normal limits. There is hepatic color flow. The direction of portal flow is hepatopetal. There is no demonstrated mass lesion. Gallbladder: Normal distended gallbladder. The gallbladder wall measures 3 mm. There is a negative sonographic Morrison''s sign. There is no pericholecystic fluid. There are no gallstones. Small amount of sludge is seen in the gallbladder lumen. Common Bile Duct (C.B.D.): The common bile duct measures 6 mm. Pancreas: Normal size of the head, body and tail of the pancreas. There is normal echogenicity of the pancreas. There is no demonstrated pancreatic mass or cyst. Right Kidney: Normal size of the right kidney. The right kidney measures 11 cm x 5.4 cm x 4.6 cm. Normal renal cortex. The right cortex measures 1.5 cm. There is no demonstrated renal mass or cyst. There is no right hydronephrosis. US/Gallbladder IMPRESSION: Small amount of sludge is seen in the gallbladder lumen. Electronically Signed: Alfie Barrera MD at 9:15 EDT ,
--- NOTE | 2024-02-27 08:20 | ED.VIS.GI ---
HPI HPI - GI History of Present Illness Chief Complaint: Abd Pain Informant: patient Narrative Narrative: Upper abdominal pain since 8 PM yesterday after eating carrots cheesy potato soup. Symptoms are an hour afterwards. Total of 10 episodes of emesis no hematemesis. Had normal nonbloody bowel movement this morning passing gas. Appendectomy in the past. Gastric sleeve performed this past July by Dr. Asad mtz at [facility]. Paroxysmal A-fib history on Eliquis. She is on a PPI however did not take it this morning. Unable to keep anything down this morning. States had chills. No fevers. Allergy to penicillin and metoprolol. Prior similar symptoms: No PFSH PFSH Medical History Wears glasses Post-menopausal Fibromyalgia Ambulates with cane Osteoarthritis High cholesterol Restless legs Non-smoker BiPAP (biphasic positive airway pressure) dependence Sleep apnea History of Holter monitoring (~03/29/21) History of edema History of echocardiogram (~08/05/22) History of stress test (~12/10/20) Cardiology follow-up encounter (~11/15/22) History of cardioversion (~2022) Knee pain Hay fever Atrial fibrillation with rapid ventricular response Ovarian cyst Carotid artery stenosis Obstructive sleep apnea Obesity GERD (gastroesophageal reflux disease) (12/28/20) Essential (primary) hypertension Hyperlipidemia Paroxysmal atrial fibrillation (10/2019) Home Medications ?Medication ?Instructions ?Recorded ?Last Taken ?Type multivitamin 1 tab PO DAILY vitamin 11/30/20 02/21/23 History ropinirole 1 mg tablet 3 mg PO QHS restless legs 11/30/20 Unknown History apixaban 5 mg tablet 5 mg PO BID blood thinner 12/02/20 Unknown History cetirizine 10 mg capsule (Zyrtec) 10 mg PO DAILY PRN Allergy Symptoms 09/27/21 Unknown History rosuvastatin 40 mg tablet 40 mg PO DAILY 12/27/22 Unknown History sotalol 80 mg tablet 80 mg PO BID 30 days #180 tabs 06/16/23 Unknown Rx mecobalamin (vitamin B12) 5,000 mcg PO 09/19/23 Unknown History mcg disintegrating tablet furosemide 40 mg tablet 40 mg PO BID diuectic #180 tabs 09/25/23 Unknown Rx calcium citrate 500 mg PO TID 01/09/24 Unknown History cholecalciferol (vitamin D3) 125 125 mcg PO DAILY 01/09/24 Unknown History mcg (5,000 unit) tablet lisinopril 10 mg tablet 10 mg PO DAILY 01/09/24 Unknown History omeprazole 20 mg capsule,delayed 20 mg PO DAILY GERD 01/09/24 Unknown History release ondansetron 4 mg disintegrating 4 mg PO Q8H PRN PRN Nausea #10 tabs 02/27/24 Unknown Rx tablet Allergy/AdvReac Type Severity Reaction Status Date / Time Penicillins Allergy Rash Verified 02/27/24 08:07 metoprolol AdvReac itching, Verified 02/27/24 08:07 fatigue, sob, leg edema Family History Mother Thyroid disorder Cancer Father Cancer Brother Diabetes Hypertension Heart disease Surgical History S/P gastric sleeve procedure History of ovarian cystectomy (~1970) History of left heart catheterization (12/28/20) History of appendectomy (~1970) History of tonsillectomy and adenoidectomy (~1963) Social History adopted: No household members: spouse housing: house number of children: 2 current occupational status: retired current occupation: retired current occupational exposures/hazards: No pets and animals: Yes leisure activities: exercise and reading history of recent travel: No sexually active: Yes Smoking Status: Never smoker second hand exposure: No alcohol intake: former substance use type: does not use diet: other well-balanced diet: daily or most days caffeine: No eating out: rarely or never during the past year weight has: decreased > 10 lbs what type of physical activity do you participate in: swimming frequency: 3-4 times per week duration: 45-60 minutes/day henry/taoism: presybeterian seatbelt use: always do you feel safe at home: Yes additional social history: - Jose Luis- Retired ROS ROS ED Constitutional Constitutional ED: Denies chills, fever(s) or sweats Eyes Eyes: Denies change in vision ENT ENT ED: Denies dysphagia or sore throat Cardiovascular Cardiovascular: Denies chest pain, leg edema, palpitations or racing heartbeat Respiratory/Chest Respiratory/Chest: Denies cough, dyspnea or dyspnea on exertion Gastrointestinal Gastrointestinal: Reports abdominal pain, nausea and vomiting; Denies diarrhea Genitourinary Genitourinary ED: Denies dysuria, hematuria or urinary frequency Musculoskeletal Musculoskeletal: Denies back pain, extremity pain or neck pain Integumentary Denies rash or wounds Neurologic Neurologic: Denies headache(s), paresthesias or weakness EXAM Physical Exam Const Vital Signs: 02/27/24 08:05 02/27/24 10:00 Temperature 97.2 F L 98.1 F Temperature Source Temporal Temporal Pulse Rate 84 81 Respiratory Rate 16 17 Blood Pressure 149/88 H 147/86 H Blood Pressure Mean 108 106 Pulse Ox 96 98 Oxygen Delivery Method Room Air Room Air Positive well nourished and well developed General Appearance ED: well developed and NAD HEENT Reports moist mucous membranes normocephalic and atraumatic Eyes EOMs intact bilaterally and conjunctivae normal General Eye ED: Yes normal appearance of both eyes Neck no lymphadenopathy and supple General: Negative for tenderness Chest Wall Chest: Negative for tenderness Resp normal respiratory effort and normal air movement Effort and Inspection: symmetric chest movement; Negative for respiratory distress Cardio regular rate, regular rhythm and no murmurs Peripheral Pulses: pulses 2+ throughout GI GI Narrative: Tender palpation epigastric and right upper quadrant. Negative McBurney's. Palpation: Negative for guarding or rebound tenderness present Back/Spine no CVA tenderness and no thoracic nor lumbar tenderness Extremity normal to inspection General Extremety ED: Negative for edema or tenderness General Extremity: Negative for edema Neuro oriented x3 and no sensory deficits noted Sensorium / Orientation: awake and alert Skin no rashes or lesions noted and no wounds MDM MDM MDM Narrative Medical decision making narrative: Interventions / MDM: Differential diagnosis: Pancreatitis, gastritis Diagnosis considered but do not suspect: Acute cholecystitis however negative imaging. My EKG interpretation: N/A Imaging independently reviewed and interpreted by myself: Right upper quadrant ultrasound: Gallbladder sludge with no parous cholecystic fluid no gallstones. External documents reviewed: N/A Test considered but not ordered:N/A ED course: Patient with epigastric pain vomiting mild pain right upper quadrant exam. Gastric sleeve 8 months ago. She denies hematemesis. Abdominal labs were ordered, right upper quadrant ultrasound. Fluids Zofran and Pepcid with low-dose morphine 2 mg. Avoid NSAIDs due to her gastric sleeve's. Labs noted lipase of 161 normal liver enzymes. This was just over 2 times the normal limit. White count of 11. Ultrasound sludge noted normal common bile duct. Reevaluation clinically improved. She is able tolerate p.o. fluids. Discussed her elevated lipase definition would be pancreatitis however is less than 3 times normal. She is clinically feeling better abdomen soft on exam. I discussed patient can further evaluate the CT scan if she declines at this time as she is clinically feeling better. Discussed liquid diet for next 24 hours then advance as tolerated. Discussed tricked return precautions. She denies any alcohol history. All questions were answered. Re-evaluation: stable Disposition discussed with patient/family/significant other: Patient Case discussed with consulting clinician: N/A This note was generated with [employer] dictation software. It may contain incorrect words, spelling, and punctuation that were not noted in checking the note before signing. Lab Data Attestation: I reviewed the patient's lab results. Labs: Laboratory Results - last 24 hr 02/27/24 08:28 WBC 11.0 RBC 4.95 Hgb 13.6 Hct 41.8 MCV 84.4 MCH 27.5 MCHC 32.5 RDW Std Deviation 41.0 RDW Coeff of Nnamdi 13.3 Plt Count 260 MPV 11.8 Immature Gran % (Auto) 0.400 Neut % (Auto) 74.5 H Lymph % (Auto) 18.7 L [place] % (Auto) 5.8 Eos % (Auto) 0.2 Baso % (Auto) 0.4 Absolute Neuts (auto) 8.2 H Absolute Lymphs (auto) 2.05 Nucleated RBC % 0 Sodium 135 L Potassium 4.0 Chloride 104 Carbon Dioxide 26.0 Anion Gap 5 BUN 22 H Creatinine 0.99 Estim Creat Clear Calc 66.75 Est GFR (MDRD) Af Amer 71 Est GFR (MDRD) Non-Af 59 L BUN/Creatinine Ratio 22.2 H Glucose 136 H Calcium 10.3 H Total Bilirubin 0.50 Direct Bilirubin 0.20 AST 24 ALT 27 Alkaline Phosphatase 102 Total Protein 8.3 H Albumin 3.7 Globulin 4.6 H Lipase 161 H Radiography Diagnostic Testing: Clinical Impression(s) from Imaging Studies Gallbladder Ultrasound 02/27/24 08:19 IMPRESSION: Small amount of sludge is seen in the gallbladder lumen. Electronically Signed: Alfie Barrera MD at 9:15 EDT , Discharge Plan Triage Chief Complaint: Abd Pain ED Provider: Ramiro Almeida Dx/Rx/DC Orders Clinical Impression: Abdominal pain, Pancreatitis Instructions: ED Pancreatitis Prescriptions: New ondansetron 4 mg tablet,disintegrating 4 mg PO Q8H PRN PRN (Reason: Nausea) Qty: 10 0RF No Action apixaban 5 mg tablet 5 mg PO BID Zyrtec 10 mg capsule 10 mg PO DAILY PRN (Reason: Allergy Symptoms) omeprazole 20 mg capsule,delayed release(DR/EC) 20 mg PO DAILY rosuvastatin 40 mg tablet 40 mg PO DAILY lisinopril 10 mg tablet 10 mg PO DAILY calcium citrate 250 mg calcium tablet 500 mg PO TID cholecalciferol (vitamin D3) 125 mcg (5,000 unit) tablet 125 mcg PO DAILY mecobalamin (vitamin B12) 5,000 mcg tablet,disintegrating PO ropinirole 1 mg tablet 3 mg PO QHS multivitamin Tablet 1 tab PO DAILY sotalol 80 mg tablet 80 mg PO BID 30 Days Qty: 180 3RF furosemide 40 mg tablet 40 mg PO BID Qty: 180 3RF Primary Care Provider: Walter Mendez Referrals: Walter Mendez MD [Primary Care Provider] - 1-2 Weeks Friend,DO Dewayne [Med Staff - Active Staff] - 1-2 Weeks Activity Restrictions/Additional Instructions: Your lipase 161. Normal liver enzymes. White count 11. Ultrasound gallbladder with sludge there is no inflammation noted. Liquid diet for the next 24 hours then advance as tolerated. Use Zofran as needed. Your symptoms worsen when the ED, return to the ED for reevaluation. Otherwise follow-up with Dr. Dixon. Print Language: Kiswahili Disposition Disposition: Home, Self Care Discharge Date/Time: 02/27/24 10:35
[2024-02-27] MEDS: 0.9% Normal Saline (1000mL) 1,000 ML 999 ML IV (08:30)
[2024-02-27] MEDS: Morphine 2 MG/ML Syringe IV (08:30)
[2024-02-27] MEDS: Ondansetron 4 MG/2 ML Vial IV (08:30)
[2024-02-27 08:32] LABS: Absolute Lymphocyte Count 2.05 X10^3/uL (0.83-4.51); Absolute Neutrophil Count 8.2 X10^3/uL (2.0-7.7); Basophil# 0.04 X10^3/uL; Basophil% 0.4 % (0-1); Eosinophil# 0.02 X10^3/uL; Eosinophils% 0.2 % (0-5); Hematocrit 41.8 % (37-47); Hemoglobin 13.6 g/dL (12.0-15.0); Lymphocyte # 2.05 X10^3/ul (0.83-4.51); Lymphocyte % 18.7 % (19-41); Mean Corp Hgb Conc 32.5 g/dL (32-36); Mean Corpuscular Hgb 27.5 pg (27.0-32.0); Mean Corpuscular Volume 84.4 fL (81-99); Mean Platelet Vol. 11.8 fl (6.2-12.0); Monocyte# 0.64 X10^3/uL; Monocyte% 5.8 % (0-10); NRBC Flagged by Analyzer 0 % (0-5); Neutrophil % 74.5 % (47-70); Platelet Count 260 K/mm3 (150-450); RBC Distribution Width CV 13.3 % (11.6-14.6); Red Blood Count 4.95 M/mm3 (4.2-5.4)
[2024-02-27 08:53] LABS: AST(SGOT) 24 U/L (15-37); Alanine Aminotransfer ALT/SGPT 27 U/L (13-56); Albumin, Serum 3.7 g/dL (3.2-5.0); Alkaline Phosphatase 102 U/L (45-117); Anion Gap 5 (5-15); BUN 22 mg/dL (7-18); BUN/Creat Ratio 22.2 RATIO (10-20); Calcium,Total 10.3 mg/dL (8.5-10.1); Chloride 104 mmol/L (98-107); Creatinine, Serum 0.99 mg/dL (0.55-1.02); EST Glomerular Filtration Rate 59 mL/min (>60); Est Glom Filt Rate - Afr Amer 71 mL/min (>60); Estimated Creatinine Clearance 66.75 ml/min; Globulin 4.6 g/dL (2.2-4.2); Glucose 136 mg/dL (74-106); Lipase 161 U/L (13-75); Protein, Total 8.3 g/dL (6.4-8.2); Sodium Level 135 mmol/L (136-145)
[2024-02-27] MEDS: Famotidine 200 MG/20 ML MDV 20 MG in 0.9% Normal Saline (Pres. free 8 ML 300 MG IV (08:58)
[2024-02-27 10:00] VITALS: BP 147/86; PULSE 81; RESP 17; TEMP 36.7; O2SAT 98
== END 2024-02-27 10:35 | disposition home or self-care (01) ==
PROVIDERS: Emergency Provider Emergency Medicine; PCP Family Medicine; Visit Provider Emergency Medicine
DX: K85.90 Acute pancreatitis without necrosis or infection, unspecified (principal); I48.0 Paroxysmal atrial fibrillation; G47.33 Obstructive sleep apnea (adult) (pediatric); Z79.01 Long term (current) use of anticoagulants
CPT/HCPCS: 76705; 80048; 80076; 83690; 85025; 96361; 96374; 96375; 96376; 99282; J7030; J2405; J3490

== ENCOUNTER → 2024-03-20 | Outpatient (CLI) | payer MEDICARE, OTHER, SELFPAY ==
[2022-10-18 10:25] VITALS: BMI 53.1
--- NOTE | 2024-03-20 07:40 | CT_ITS ---
PROCEDURE: CT RIGHT KNEE WITHOUT CONTRAST REASON FOR EXAM: Female, 68 years old. Preoperative planning for the MakoPl[employer] Robotic knee surgery. Knee pain. TECHNIQUE: Transaxial CT of the hip, knee and ankle were obtained. Coronal and sagittal reconstruction images of the knee were provided. Individualized dose optimization techniques were used for this CT. COMPARISON: Knee x-rays dated October 07, 2022 FINDINGS: Standard protocol for the preoperative planning for the MakoPlasty robotic knee surgery was performed. Osteopenia with mild arthrosis of the hip, moderate to severe tricompartmental arthrosis of the knee and moderate arthrosis of the tibiotalar and subtalar joints. CT/Extremity Lower without Contra IMPRESSION: Preoperative MakoPlasty Robotic knee surgical CT evaluation with findings as described above. Electronically Signed: Teo Valentino MD at 9:22 EDT ,
== END | disposition home or self-care (01) ==
LOC: CT 07:38
PROVIDERS: PCP Family Medicine; Referring Provider Student in an Organized Health Care Education/Training Program; Visit Provider Student in an Organized Health Care Education/Training Program
DX: M17.11 Unilateral primary osteoarthritis, right knee (principal)
CPT/HCPCS: 73700

== ENCOUNTER 2024-04-08 12:40 | Observation (INO) | payer MEDICARE, OTHER, SELFPAY ==
[2022-10-18 10:25] VITALS: BMI 53.1
[2024-03-20 08:48] LABS: Absolute Lymphocyte Count 2.37 X10^3/uL (0.83-4.51); Absolute Neutrophil Count 3.8 X10^3/uL (2.0-7.7); Basophil# 0.05 X10^3/uL; Basophil% 0.7 % (0-1); Eosinophil# 0.39 X10^3/uL; Eosinophils% 5.3 % (0-5); Hematocrit 37.5 % (37-47); Lymphocyte # 2.37 X10^3/ul (0.83-4.51); Lymphocyte % 32.4 % (19-41); Mean Corpuscular Hgb 27.8 pg (27.0-32.0); Mean Platelet Vol. 12.3 fl (6.2-12.0); Monocyte# 0.64 X10^3/uL; Monocyte% 8.7 % (0-10); NRBC Flagged by Analyzer 0 % (0-5); Neutrophil # 3.84 X10^3/uL (2.7-7.7); Neutrophil % 52.5 % (47-70); Platelet Count 212 K/mm3 (150-450); RBC Distribution Width CV 13.7 % (11.6-14.6); RBC Distribution Width SD 43.9 fl (35.1-43.9); Red Blood Count 4.31 M/mm3 (4.2-5.4); White Blood Count 7.3 K/mm3 (4.4-11.0)
[2024-03-20 09:14] LABS: Albumin, Serum 3.2 g/dL (3.2-5.0); Anion Gap 2 (5-15); BUN 19 mg/dL (7-18); BUN/Creat Ratio 21.4 RATIO (10-20); Calcium,Total 9.8 mg/dL (8.5-10.1); Chloride 109 mmol/L (98-107); Creatinine, Serum 0.89 mg/dL (0.55-1.02); EST Glomerular Filtration Rate 67 mL/min (>60); Est Glom Filt Rate - Afr Amer 81 mL/min (>60); Glucose 97 mg/dL (74-106); Potassium 3.8 mmol/L (3.5-5.1); Sodium Level 140 mmol/L (136-145)
[2024-04-08] VITALS (18 sets, daily range): BP systolic 118–150; BP diastolic 50–95; PULSE 42–60; RESP 15–20; TEMP 36.1–36.7; O2SAT 93–100; BMI 41.1
--- NOTE | 2024-04-08 09:20 | PRE.ANES_ITS ---
ASA Classification* ASA Classification ASA Classification: 3 Assessment & Plan Anesthesia* Anesthesia Assessment Anesthesia Assessment: Discussed sedation and/or anesthesia options, risks, benefits, and alternatives with patient/parents/legal guardian/POA. Questions invited. The patient/parents/legal guardian/POA seems to understand and agrees to proceed with anesthesia plan. Reviewed the physical assessment, medical history, allergy history and patient home medications list prior to surgery/procedure/anesthetic and documented any changes. Performed airway and anesthesia risk assessments. Anesthesia Type Anesthesia Type: General (block consented. no spinal due to eliquis <72hrs ago) Anesthesia Focused Assessment* Airway Assessment Mouth opens: >3 cm Mallampati Score: II Focused Labs Anesthesia Preop lab: CBC WBC 7.3 K/mm3 (4.4-11.0) 03/20/24 08:22 RBC 4.31 M/mm3 (4.2-5.4) 03/20/24 08:22 Hgb 12.0 g/dL (12.0-15.0) 03/20/24 08:22 Hct 37.5 % (37-47) 03/20/24 08:22 Plt Count 212 K/mm3 (150-450) 03/20/24 08:22 CHEMISTRY Potassium 3.8 mmol/L (3.5-5.1) 03/20/24 08:22 Sodium 140 mmol/L (136-145) 03/20/24 08:22 Magnesium 2.3 mg/dL (1.6-2.6) 03/13/24 12:00 BUN 19 mg/dL (7-18) H 03/20/24 08:22 Creatinine 0.89 mg/dL (0.55-1.02) 03/20/24 08:22 Glucose 97 mg/dL (74-106) 03/20/24 08:22 TSH 1.75 uIU/mL (0.358-3.74) 09/19/23 09:52 COAG PT 17.3 SECONDS (11.7-14.9) H 08/04/22 19:40 Pre-Assessment Diagnosis/Proposed Procedure Planned Operative Procedure(s): ROBOTIC ASSISTED RIGHT KNEE ARTHROPLASTY Anesthesia History Anesthesia History - academic associate: Anesthesia History - academic associate Hx Hospitalization No 03/14/24 09:59 Any Problems With Anesthesia No 03/14/24 09:59 Cholinesterase deficiency No 03/14/24 09:59 You/Your Family Experience No 03/14/24 09:59 fever (hyperthermia) with Relationship Recent Exposure to Contagious No 02/21/23 13:07 Disease Does patient have nerve No 03/14/24 09:59 stimulator Patient instructed to have device shut off --Does patient have Pacemaker or ICD? When Was Last Pacemaker Check QUESTION #4 FULL TEXT: You/Your Family Experience fever (hyperthermia) with Anesthesia Last Oral Intake Last Oral intake: Last Oral Intake NPO since Meds taken in AM with sips of water? Meds patient instructed to take am of surgery PONV PONV - academic associate: PONV - academic associate Female Yes 03/14/24 09:59 HX of Motion Sickness No 03/14/24 09:59 HX of N/V After Surgery No 03/14/24 09:59 Non-Smoker Yes 03/14/24 09:59 Duration of Surgery greater Yes 03/14/24 09:59 than 60 minutes Number of Risk Factors 3 03/14/24 09:59 PONV Score Moderate Risk 03/14/24 09:59 Height & Weight Height & Weight: Anesthesia: Height & Weight Height 5 ft 5 in 03/26/24 11:05 Respiratory Assessment Respiratory Assessment - academic associate: Respiratory Tract Infection Hx - academic associate Hx Respiratory Tract Infection No 03/14/24 09:59 STOP Sleep Apnea STOP Sleep Apnea - academic associate: STOP Sleep Apnea - academic associate Hx Hypertension Yes: CONTROLLED WITH MEDS 03/14/24 09:59 Hx Sleep Apnea Yes 03/14/24 09:59 CPAP No 03/14/24 09:59 BIPAP Yes 03/14/24 09:59 Do you snore loudly (louder than talking or can be heard Do you often feel tired/ fatigued/ sleepy during daytime? Has anyone observed you stop breathing during sleep? STOP Results Positive 03/14/24 09:59 QUESTION #5 FULL TEXT : Do you snore loudly (louder than talking or can be heard through closed doors)? Tobacco Use History Tobacco Use History - academic associate: Tobacco Use History - academic associate Tobacco Use Smoking Status Never smoker 03/14/24 09:59 Hx Tobacco Use No 03/14/24 09:59 Years Smoking Packs Smoked per Day Smoking Cessation Date was within the last 15 years Hx Smoking Cessation Date Hx Smoking Cessation Counseling Hematologic Medial History Hematologic Hx - academic associate: Hematologic Medical Hx - racebook writer Hx of Blood Transfusion No 03/14/24 09:59 Hx of Transfusion in last 3 No 03/14/24 09:59 Months Date of Last Transfusion (if within last 3 months) Ever experience any problems No 03/14/24 09:59 with transfusion(s)? Specify any problems Hx of Preganancy in last 3 No 03/14/24 09:59 Months Nurse Filling Out Transfusion DSCHRIBER 03/14/24 09:59 & Questions: Date: 03/14/24 03/14/24 09:59 Time: 10:01 03/14/24 09:59 Patient unable to answer at this time (ie. confused, unrespo /Reproduction History /Reproductive History - academic associate: /Reproductive Hx- academic associate Hx Now No 03/14/24 09:59 Gestational Age (in weeks): EDC: Hx Hx Para Hx Section SAB No 03/14/24 09:59 Active Medications Active Medications: Current Medications Generic Name Dose Route Start Last Admin Trade Name Freq PRN Reason Stop Dose Admin Acetaminophen 1,000 mg 04/08/24 11:15 Acetaminophen 500 Mg Tablet PO 04/08/24 11:16 X1 ONE Sodium Chloride 77.4 ml/ 0 ml 04/08/24 11:15 Ropivacaine 200 mg/ OPERA.SITE 04/08/24 11:16 Epinephrine HCl 0.6 mg/ X1 ONE Ketorolac Tromethamine 30 mg/ Morphine Sulfate 5 mg Dexamethasone Sodium Phosphate 10 mg 04/08/24 11:15 Dexamethasone 10 Mg/Ml Vial IV 04/08/24 11:16 X1 ONE Gabapentin 600 mg 04/08/24 11:15 Gabapentin 600 Mg Tablet PO 04/08/24 11:16 X1 ONE Lactated Ringer's 1,000 mls @ 999 mls/hr 04/08/24 11:15 IV 04/08/24 12:15 .Q1H1M KENTRELL Cefazolin Sodium 2 gm/ Sodium 110 mls @ 150 mls/hr 04/08/24 11:15 Chloride IV 04/08/24 11:58 PREOP ONE Tranexamic Acid 1,000 mg/ 110 mls @ 660 mls/hr 04/08/24 11:15 Sodium Chloride IV 04/08/24 11:24 X1 ONE Tranexamic Acid 1,000 mg/ 110 mls @ 660 mls/hr 04/08/24 12:15 Sodium Chloride IV 04/08/24 12:24 X1 ONE Lactated Ringer's 1,000 mls @ 999 mls/hr 04/08/24 12:15 IV 04/08/24 13:15 .Q1H1M KENTRELL Lactated Ringer's 1,000 mls @ 125 mls/hr 04/08/24 13:15 IV 04/08/24 21:14 .Q8H KENTRELL Magnesium Sulfate 1 gm/ 102 mls @ 408 mls/hr 04/08/24 11:15 Dextrose IV 04/08/24 11:29 X1 ONE Lactated Ringer's 1,000 mls @ 15 mls/hr 04/08/24 08:45 IV .Q48H KENTRELL Insulin Human Lispro 1 - 6 unit 04/08/24 11:15 Insulin Lispro 100 Unit/Ml Insuln.Pen SC 04/08/24 17:15 Q4H PRN PRN BG>/= 180, SEE PROTOCOL Protocol PFSH Medical History Sludge in gallbladder Loss of hearing Arthritis Anemia Back pain Dietary restriction Leg cramps History of edema History of pain when walking History of CHF (congestive heart failure) History of heart attack Wears glasses Post-menopausal Fibromyalgia Ambulates with cane Osteoarthritis High cholesterol Restless legs Non-smoker BiPAP (biphasic positive airway pressure) dependence History of Holter monitoring (~03/29/21) History of echocardiogram (~08/05/22) History of stress test (~12/10/20) Cardiology follow-up encounter (~11/15/22) History of cardioversion (~2022) Knee pain Hay fever Atrial fibrillation with rapid ventricular response Obstructive sleep apnea Obesity GERD (gastroesophageal reflux disease) (12/28/20) Essential (primary) hypertension Hyperlipidemia Paroxysmal atrial fibrillation (10/2019) Home Medications ?Medication ?Instructions ?Recorded ?Last Taken ?Type multivitamin 1 tab PO DAILY vitamin 11/30/20 02/21/23 History ropinirole 1 mg tablet 3 mg PO QHS restless legs 11/30/20 Unknown History apixaban 5 mg tablet 5 mg PO BID blood thinner 12/02/20 Unknown History cetirizine 10 mg capsule (Zyrtec) 10 mg PO DAILY PRN Allergy Symptoms 09/27/21 Unknown History rosuvastatin 40 mg tablet 40 mg PO QHS CHOLESTEROL 12/27/22 Unknown History sotalol 80 mg tablet 80 mg PO BID BP 30 days #180 tabs 06/16/23 Unknown Rx mecobalamin (vitamin B12) 5,000 5,000 mcg PO DAILY SUPPLEMENT 09/19/23 Unknown History mcg disintegrating tablet furosemide 40 mg tablet 40 mg PO BID diuectic #180 tabs 09/25/23 Unknown Rx calcium citrate 500 mg PO TID SUPPLEMENT 01/09/24 Unknown History cholecalciferol (vitamin D3) 125 125 mcg PO DAILY SUPPLEMENT 01/09/24 Unknown History mcg (5,000 unit) tablet lisinopril 10 mg tablet 10 mg PO DAILY BP 01/09/24 Unknown History omeprazole 20 mg capsule,delayed 20 mg PO DAILY GERD 01/09/24 Unknown History release Allergy/AdvReac Type Severity Reaction Status Date / Time Penicillins Allergy Rash Verified 03/26/24 11:04 metoprolol AdvReac itching, Verified 03/26/24 11:04 fatigue, sob, leg edema Family History Mother Thyroid disorder Cancer Father Cancer Brother Diabetes Hypertension Heart disease Surgical History Hx of colonoscopy S/P gastric sleeve procedure History of ovarian cystectomy (~1970) History of left heart catheterization (12/28/20) History of tonsillectomy and adenoidectomy (~1963) Social History adopted: No household members: spouse housing: house number of children: 2 current occupational status: retired current occupation: retired current occupational exposures/hazards: No pets and animals: Yes leisure activities: exercise and reading history of recent travel: No sexually active: Yes Smoking Status: Never smoker second hand exposure: No alcohol intake: former substance use type: does not use diet: other well-balanced diet: daily or most days caffeine: No eating out: rarely or never during the past year weight has: decreased > 10 lbs what type of physical activity do you participate in: swimming frequency: 3-4 times per week duration: 45-60 minutes/day henry/restoration: roman catholic seatbelt use: always do you feel safe at home: Yes additional social history: - Jose Luis- Retired Review of Systems (Anesthesia) ROS Narrative System reviewed and no additional complaints, except as documented.
[2024-04-08] MEDS: Magnesium 1 GM over 15 mins IV (09:40)
[2024-04-08] MEDS: Lactated Ringers 1,000 ML 999 ML IV ×2 (09:41→12:46)
[2024-04-08] MEDS: Gabapentin 600 MG Tablet PO (09:50)
[2024-04-08] MEDS: Acetaminophen 500 MG Tablet 1000 MG PO ×3 (09:50→22:29)
[2024-04-08 10:21] LABS: Bedside Glucose 91 mg/dL (74-106)
[2024-04-08] MEDS: Cefazolin 2 GM in 0.9% Normal Saline (100mL Bag) 100 ML IV (10:35)
[2024-04-08] MEDS: Lactated Ringers 1,000 ML 15 ML IV (10:41)
[2024-04-08] MEDS: dexAMETHasone 10 MG/ML Vial IV (10:43)
--- NOTE | 2024-04-08 10:45 | KNEE_PTH ---
PATIENT: ELEN ARMAS LOC: [facility] U#:[id number] AGE/SX: 68/F ROOM: [id number] RE04/08/[address]: Dr. Montana Samuel DO : 1955 BED: 1 DIS: 04/09/2024 SPEC #: [id number] RECD: 04/09/24 08:51 STATUS: ELSIE CHAVEZHeidi #: [id number] RELL: 04/08/24 10:[address]: Montana Samuel DEPT: SURGICAL PATHOLOGY RECD BY: Miah Palomares ENTERED: 04/09/24 10:43 SP TYPE: TOTAL KNEE OTHR DR: Dr. Walter Mendez MD Tissues: Knee, NOS Procedures: Decalcification bone/plaque Surgery Specimen Level IV HEADER OPERATION: Robotic assisted right total knee arthroplasty PRE-OP DIAGNOSIS: Grade IV osteoarthritis right knee TISSUE SUBMITTED: Right knee bone and soft tissue MICROSCOPIC DIAGNOSIS Bone and tissue of right knee, total knee resection: Severe degenerative joint disease. Mild synovial hyperplasia. AM: 04/12/2024 MICROSCOPIC DESCRIPTION Slides are reviewed. GROSS DESCRIPTION Received is one container designated bone and soft tissue right knee. The specimen consists of multiple fragments of kline-yellow bone measuring in aggregate 9.0 x 7.0 x 2.5 cm. Also in the specimen container are multiple fragments of yellow-white soft tissue measuring in aggregate 8.0 x 6.0 x 2.5 cm. A number of bony fragments contain articular surfaces consistent with tibial plateau and femoral condyle and displaying prominent osteophyte formation, eburnation and bone erosion. Tankroom Worker sections are submitted in two cassettes as follows: 1 - soft tissue, 2 - bone after decalcification. / ALEKSANDRA. 04/09/2024 TC:5 [facility]: [id number], [id number]
[2024-04-08] MEDS: TXA 1000mg in NS100 100ml (IVPB at Incision) 660 MG IV (10:46)
[2024-04-08] MEDS: TXA 1000mg in NS100 100ml (IVPB at Closure) 660 MG IV (12:12)
[2024-04-08] MEDS: JPS (Morphine 10mg/ml) OPERA.SITE (12:32)
--- NOTE | 2024-04-08 12:44 | PCM.OPRPT ---
Report of Operation Date of Procedure: 04/08/24 Description of Surgical Findings:: Preoperative diagnosis: Right knee primary osteoarthritis Postoperative diagnosis: Right knee primary osteoarthritis Procedure: Cemented right total knee arthroplasty Surgeon: Montana Samuel DO Lamp Cleaner Street Light: Danika Poewrs PA-C Anesthesia: General LMA, adductor canal block Anesthesiologist: Dr. Hein Complications: None apparent Drains: None Estimated blood loss: 100 cc Urinary output: None recorded IV fluids: 1500 cc crystalloid Specimens: Total knee resections Surgical implants: Hector triathlon X3 asymmetric patella size a32, triathlon cruciate retaining femoral #2, primary tibial baseplate #3, triathlon X3 tibial bearing insert CS 9 mm Indications: This is a 68-year-old female seen in the outpatient setting diagnosed with right knee osteoarthritis with significant varus deformity. She failed nonoperative management with intra-articular corticosteroid injections, activity modification, bracing, geep-xul-szrfuil analgesics. X-rays revealed grade 4 medial compartment changes. She also had significant patellofemoral arthritis. I recommended a right total knee arthroplasty. The risk, benefits, alternatives to procedure reviewed with patient at length and he agreed to proceed. Risks included but were not limited to bleeding, infection, loss of life or limb, need for additional surgery, persistent pain, intraoperative or postoperative fracture, instability, loosening of components, wound complications, stiffness, neurovascular injury, DVT or PE. Patient expressed understanding these risks and wished to proceed with surgery. Informed consent was obtained in the outpatient setting. Description of procedure: Patient was identified in the preoperative holding area by name, medical record number, and date of . Informed consent was confirmed with the patient. The operative knee was marked with a surgical marker. At time of his procedure, patient brought to the operative suite and positioned supine a standard operating table. General anesthesia was induced and LMA placed. All bony prominences were well-padded. We then placed a well-padded pneumatic tourniquet on the right upper thigh. The right upper extremity was brought across patient's chest throughout the procedure. We then prepped and draped the right lower extremity in a normal, sterile orthopedic fashion. We performed a timeout with all parties in attendance in agreement with the side, site, operation be performed. No concerns were voiced and would like to proceed with surgery. 2 g Ancef was administered prior to the incision by anesthesia staff as well as 1 g IV TXA. First exsanguinated the left lower extremity with a Esmarch bandage. Tourniquet was inflated to 280 mmHg, which remained up for approximately 70 minutes. Esmarch was removed. I planned a standard midline approach to the right knee approximately 15 cm in length. Skin was sharply incised with a 10 blade scalpel developing full-thickness layers down to the retinaculum. Layers were developed identifying the VMO. I then planned a standard medial parapatellar arthrotomy performed in flexion. The anterior horn of the medial meniscus was released. Hoffa's fat pad was then released. I then everted the patella in extension and brought the knee into 90 degrees of flexion. The anterior horn of the lateral meniscus was then released. The ACL was split in its mid substance with a 10 blade. We then brought the knee back into extension. I measured the outer diameter of the patella to be approximately 40 to mm, a patellar reamer was then selected. I measured the thickness of the patella to be 26 mm. I then reamed the patella to a depth of approximately 14 mm. A protective baseplate was then placed on the patella. I then placed pins in the metaphyseal distal femur medial to lateral for the Steven arrays. In similar fashion, I made a 2 cm incision approximately a handsbreadth distal to the tibial tubercle along the medial aspect of the tibia, drilling 2 bicortical pins for the tibial array. The knee was brought into flexion. The patella was subluxed laterally but not everted. Medial lateral retractors were placed. We then utilized the [employer] software to confirm our planned surgical procedure and oriented with the patient's osseous anatomy. All checks with the [employer] system were confirmed. Patient had a significant fixed varus deformity after performing stress examination utilizing the Steven software. We elected to place the femur baseplate in approximately 1 degree of valgus to allow for appropriate balancing. Sawblade was then brought in. I first started with the tibial cut, ensuring protection of the MCL and patellar tendon. A tibial wafer was then excised. I then proceeded to make the posterior femoral, anterior, anterior chamfer cuts with the same blade. Ligaments were protected with [employer] retractors. Sawblade was then exchanged to perform the distal femoral and posterior chamfer cuts. The robot was then removed from the surgical field. Remaining loose bone and meniscus was excised carefully. Posterior osteophytes were removed from the distal femur with a curved osteotome and rongeur. Trial components were then placed. Balance was excellent in both extension and 90 degrees flexion. No mid flexion instability was apparent. I then drilled for a size 32 patella. Patella was trialed. Tracking was excellent. We then marked for tibial baseplate. Distal femoral pegs were drilled. Tibial keel was punched. Trials were removed. Periarticular block was administered. The wound was copiously irrigated with normal saline solution. Simplex cement was then mixed on the back table. Components were then cemented in place with excess cement being removed. Cement was allowed to cure with the components in full extension utilizing a 9 mm trial polyethylene component. While the cement was curing, Betadine solution was irrigated into the wound and the wound edges. After cement had cured fully, trial polyethylene was removed. Tourniquet was deflated. Hemostasis was excellent. An additional 1 g TXA was administered IV. I selected a size 9 mm polyethylene which was placed and impacted per dramatic arts historian recommendations. Final components appeared very well balanced with excellent range of motion. There is no significant remaining flexion contracture. The wound was copiously irrigated with normal saline solution. Capsule was closed watertight with #1 strata fix barbed suture. Deeper report muscle layer was reapproximated with 0 Vicryl suture. Dermis was reapproximated buried interrupted 2-0 Vicryl suture. Skin was finally reapproximated danny. Patient tolerated the procedure well without apparent complication. She was safely awakened in the operative suite, transferred to his hospital bed and subsequently to PACU in stable condition. Need for skilled sales support assistant: Danika Powers PA-C was critical to the outcome of the case. During the course of the procedure the physician sales support assistant played a vital role. Her intimate knowledge of my steps in the procedure aided in safe and expedient completion of the procedure. The PA played a vital role in positioning particularly in obtaining the appropriate positioning. The PA was also vital in the retraction of soft tissues during the exposure and projecting vital structures. The PA was also vital and protecting soft tissues during times of bony cuts. She also played a vital role in closure with my direct supervision. The PA was also important during reduction and dislocation of the joint and trials intraoperatively. Post Operative Plan: Patient will be placed in observation overnight for medical monitoring and early convalescence. Anticipate discharge to home tomorrow. Weightbearing: Range of motion and weightbearing as tolerated right lower extremity. Antibiotics: Ancef 2 g every 8 hours x 3 doses, 2 weeks doxycycline upon discharge DVT Prophylaxis: Restart home Eliquis postoperative day #1 Abbott: None Dressing: Maintain silver dressing x7 days X-Rays: 2-week x-rays in the office. Follow-up: 2 weeks in office for staple removal
--- NOTE | 2024-04-08 13:06 | PCM.POST.ANE ---
Anesthesia: Postop Eval I Current Vital Signs Temperature: 97.3 F Pulse Rate: 49 Blood Pressure: 150/60 Respiratory Rate: 18 Pulse Ox: 96 Oxygen Delivery Method: Room Air Assessment Airway patent: Yes Spontaneous unlabored respirations: Yes Mental status: Awake and Calm nausea: No Vomiting: No Anesthesia Complication: No Fluid Hydration Crystalloid volume administer (ml): 1,500 Total IV fluid infused: 1,500 Progress Note Anesthesia document: Postop Eval 1 completed: Yes
[2024-04-08] MEDS: Lactated Ringers 1,000 ML 125 ML IV (13:47)
--- NOTE | 2024-04-08 16:01 | POSTOPAN2_ITS ---
Anesthesia Postop Eval I Sum Postop Eval Completion status Anesthesia document: Postop Eval 1 completed: Yes Anesthesia Postop Eval I Summary Anesthesia Postop Eval I Summary: Anesthesia Postop Eval I: Assessment Summary Airway patent Yes 04/08/24 13:07 BOOSTER [email or web address] Spontaneous unlabored Yes 04/08/24 13:07 BOOSTER STATION [email or web address].[email or web address] respirations Mental status Awake,Calm 04/08/24 13:07 BOOSTER STATION [email or web address] nausea No 04/08/24 13:07 BOOSTER [email or web address] [email or web address] Vomiting No 04/08/24 13:07 BOOSTER STATION [email or web address] Anesthesia Postop Eval I: Fluid Summary Crystalloid volume administer 1,500 04/08/24 13:07 BOOSTER [email or web address] (ml) Colloids volume administered ( ml) Blood Product volume administered (ml) Total IV fluid infused 1,500 04/08/24 13:07 BOOSTER STATION [email or web address] Anesthesia Postop Eval I: Summary Notes Anesthesia Complication No 04/08/24 13:07 BOOSTER STATION OPERATOR.[email or web address] Anesthesia Complication Comment: Post-operative progress note Anesthesia: Postop Eval II Evaluation Mental status: Awake and Calm Pain Level: 1 nausea: No Vomiting: No Complications Anesthesia Complication: No
--- NOTE | 2024-04-08 16:01 | PCM.POSTANE2 ---
Anesthesia Postop Eval I Sum Postop Eval Completion status Anesthesia document: Postop Eval 1 completed: Yes Anesthesia Postop Eval I Summary Anesthesia Postop Eval I Summary: Anesthesia Postop Eval I: Assessment Summary Airway patent Yes 04/08/24 13:07 NEW CAR MAKE READY MECHANIC.[email or web address] Spontaneous unlabored Yes 04/08/24 13:07 NEW CAR MAKE READY MECHANIC.[email or web address] respirations Mental status Awake,Calm 04/08/24 13:07 NEW CAR MAKE READY MECHANIC.[email or web address] nausea No 04/08/24 13:07 NEW CAR MAKE READY MECHANIC.[email or web address] Vomiting No 04/08/24 13:07 NEW CAR MAKE READY MECHANIC.[email or web address] Anesthesia Postop Eval I: Fluid Summary Crystalloid volume administer 1,500 04/08/24 13:07 NEW CAR MAKE READY MECHANIC.[email or web address] (ml) Colloids volume administered ( ml) Blood Product volume administered (ml) Total IV fluid infused 1,500 04/08/24 13:07 NEW CAR MAKE READY [email or web address] Anesthesia Postop Eval I: Summary Notes Anesthesia Complication No 04/08/24 13:07 NEW CAR MAKE READY MECHANIC.SAVILORupali Anesthesia Complication Comment: Post-operative progress note Anesthesia: Postop Eval II Evaluation Mental status: Awake and Calm Pain Level: 1 nausea: No Vomiting: No Complications Anesthesia Complication: No
[2024-04-08] MEDS: Cefazolin 1 GM/50 ML BAG IV (17:54)
[2024-04-08] MEDS: Senna/Docusate Sodium 1 Tablet 2 TABLET PO (22:29)
[2024-04-08] MEDS: Atorvastatin Calcium 80 MG Tablet PO (22:29)
[2024-04-08] MEDS: Pramipexole Di-HCl 0.5 MG Tablet 1.5 MG PO (22:30)
[2024-04-09 00:11] VITALS: O2SAT 94
[2024-04-09 00:47] VITALS: BP 101/56; PULSE 63; RESP 15; TEMP 37.1; O2SAT 94
[2024-04-09] MEDS: Cefazolin 1 GM/50 ML BAG IV (03:14)
[2024-04-09 03:45] VITALS: BP 117/63; PULSE 57; RESP 15; TEMP 36.8; O2SAT 95
[2024-04-09 06:39] LABS: Hemoglobin 10.5 g/dL (12.0-15.0); Mean Corp Hgb Conc 31.8 g/dL (32-36); Mean Corpuscular Hgb 28.2 pg (27.0-32.0); Mean Corpuscular Volume 88.5 fL (81-99); Mean Platelet Vol. 11.6 fl (6.2-12.0); Platelet Count 205 K/mm3 (150-450); RBC Distribution Width CV 14.3 % (11.6-14.6); RBC Distribution Width SD 45.6 fl (35.1-43.9); Red Blood Count 3.73 M/mm3 (4.2-5.4); White Blood Count 9.6 K/mm3 (4.4-11.0)
[2024-04-09] MEDS: Acetaminophen 500 MG Tablet 1000 MG PO ×2 (07:05→13:14)
[2024-04-09 07:10] LABS: Anion Gap 3 (5-15); BUN 15 mg/dL (7-18); BUN/Creat Ratio 16.7 RATIO (10-20); Calcium,Total 8.9 mg/dL (8.5-10.1); Chloride 106 mmol/L (98-107); EST Glomerular Filtration Rate 66 mL/min (>60); Est Glom Filt Rate - Afr Amer 80 mL/min (>60); Estimated Creatinine Clearance 73.57 ml/min; Glucose 138 mg/dL (74-106); Potassium 4.1 mmol/L (3.5-5.1); Sodium Level 136 mmol/L (136-145)
--- NOTE | 2024-04-09 07:52 | PCM.PN.ORT ---
Subjective Subjective Patient seen and examined. Reports some burning intermittently otherwise denies any complaints. She has been up walking to the bathroom. She denies any fevers, chills, nausea vomiting, chest pain or shortness of breath. Urinating without difficulty. Objective Data Objective Data Vital Signs: Vital Signs Temp Pulse Resp BP Pulse Ox O2 Del Method O2 Flow Rate 98.2 F 57 L 15 117/63 95 Room Air 4 04/09/24 03:45 04/09/24 03:45 04/09/24 03:45 04/09/24 03:45 04/09/24 03:45 04/09/24 03:45 04/08/24 14:15 Oxygen Flow Rate (L/min) 4 Oxygen Delivery Method Room Air Weight: 246 lb 14.684 oz Body Mass Index (BMI) 41.1 Intake & Output: Intake and Output for Last 24 Hours 04/07/24 04/08/24 04/09/24 23:59 23:59 23:59 Intake Total 4482 / 4482 50 / 50 Balance 4482 / 4482 50 / 50 Lab / Micro Data 04/09/24 06:28 04/09/24 06:28 Labs: Laboratory Results - last 24 hr 04/08/24 09:14: POC Glucose 91 04/09/24 06:28: WBC 9.6, RBC 3.73 L, Hgb 10.5 L, Hct 33.0 L, MCV 88.5, MCH 28.2, MCHC 31.8 L, RDW Std Deviation 45.6 H, RDW Coeff of Nnamdi 14.3, Plt Count 205, MPV 11.6, Sodium 136, Potassium 4.1, Chloride 106, Carbon Dioxide 27.0, Anion Gap 3 L, BUN 15, Creatinine 0.90, Estim Creat Clear Calc 73.57, Est GFR (MDRD) Af Amer 80, Est GFR (MDRD) Non-Af 66, BUN/Creatinine Ratio 16.7, Glucose 138 H, Calcium 8.9 Micro: Microbiology 03/20/24 08:22 Nasal Secretion Nasal Screen MRSA/MSSA - Final Physical Exam Narrative General - A&Ox3, NAD. VSS/AF Right lower extremity -incisional dressing C/D/I. SILT Sural, Saphenous, SPN, DPN, Tibial N. distributions. DP, PT 2+. BCR. DF, PF, EHL /. No calf TTP. Assessment & Plan Assessment/Plan (1) History of arthroplasty of right knee: PLAN: POD# 1 s/p right robotic arm assisted total knee arthroplasty - Pain control - PT/OT - DVT PPX -restart home Bin Cooney, TIM cerrato, early mobilization - Case management - D/C planning Patient is doing well. Mobilize with therapy today. Once therapy goals met, discharge home today. Prescription for oxycodone and extended antibiotic prophylaxis in the form of Keflex provided. Scheduled Tylenol 1000 mg 3 times daily. Outpatient physical therapy scheduled for 04/11. Follow-up scheduled for 2 weeks.
--- NOTE | 2024-04-09 07:55 | DCINST_ITS ---
Discharge Instructions Follow Up Care Test Results: Test results from this visit will be discussed in further detail at your follow- up appointment, if applicable. Discharge Plan Admission Admit Date/Time: 04/08/24 16:51 Primary Reason for Your Visit: Right total knee arthroplasty Attending Provider: Montana Samuel Primary Care Provider: Walter Mendez Discharge Orders/Prescriptions Prescriptions: New oxycodone 5 mg Tablet 5 - 10 mg PO Q6H PRN PRN (Reason: Pain Score 4-10) 7 Days Qty: 42 0RF cephalexin 500 mg capsule 500 mg PO Q6H 14 Days Qty: 56 0RF Continued apixaban 5 mg tablet 5 mg PO BID Zyrtec 10 mg capsule 10 mg PO DAILY PRN (Reason: Allergy Symptoms) omeprazole 20 mg capsule,delayed release(DR/EC) 20 mg PO DAILY rosuvastatin 40 mg tablet 40 mg PO QHS lisinopril 10 mg tablet 10 mg PO DAILY calcium citrate 250 mg calcium tablet 500 mg PO TID cholecalciferol (vitamin D3) 125 mcg (5,000 unit) tablet 125 mcg PO DAILY mecobalamin (vitamin B12) 5,000 mcg tablet,disintegrating 5,000 mcg PO DAILY ropinirole 1 mg tablet 3 mg PO QHS multivitamin Tablet 1 tab PO DAILY sotalol 80 mg tablet 80 mg PO BID 30 Days Qty: 180 3RF furosemide 40 mg tablet 40 mg PO BID Qty: 180 3RF Referrals / Follow Up: Walter Mendez MD [Primary Care Provider] - Montana Samuel DO [Med Staff - Active Staff] - Disposition Disposition (needs filled in before D/C Order can be placed): Home, Self Care
[2024-04-09] MEDS: Furosemide 40 MG Tablet PO (08:01)
[2024-04-09] MEDS: Pantoprazole Sodium 20 MG Tablet PO (08:01)
[2024-04-09] MEDS: Senna/Docusate Sodium 1 Tablet 2 TABLET PO (08:01)
[2024-04-09] MEDS: APIXABAN 5 MG TABLET PO (08:01)
[2024-04-09] MEDS: Sotalol Hydrochloride 80 MG Tablet PO (08:02)
[2024-04-09] MEDS: Lisinopril 10 MG Tablet PO (08:02)
[2024-04-09] MEDS: oxyCODONE 5 MG Tablet PO ×2 (08:05→13:14)
[2024-04-09 09:10] VITALS: BP 126/60; PULSE 57; RESP 16; TEMP 36.9; O2SAT 94
--- NOTE | 2024-04-09 10:18 | CASEMGMT ---
JONAH PEARSON Assessment: Face to Face with pt for initial transition planning/care coordination assessment. JONAH PEARSON introduced self and role at [facility], pt voices understanding and consents to assessment. Pt is A&O x4 and answers all questions appropriately at this time. Pt sitting up in chair in no distress just finished working with therapy. Care providers, pharmacy, and demographics verified/updated. Admitting Dx: R TKR Strata Score: 2 PCP:Andrea Specialists:Lizzie, ortho; Fausto, cardio; Jasbir, uro; Zoltan, pulm; Friend, GI; Jace, gastric OR, Prah, heme Preferred Pharmacy: [facility] Retail Insurance: [employer], MMO Prescription Benefit: yes LNOK: Jose Luis Beltrán, Living Arrangements: Pt lives with in a single story home with 3 steps to enter with a rail. Pt reports she was I in ADLs and IADLs prior to surgery. Pt denies concerns at home. Transportation: Pt drives self and denies concerns with transportation. DME:bipap, shower bench, cane, FWW, raised toilet seat HHC/SNF: denies hx of Pt states no concerns with going home at time of dc. Pt has outpt therapy set up on at [facility]. Pt states no further concerns/needs. CM to follow. Advised pt to ask CM if any further question/concerns/needs arise, voices understanding. Pt Goal: Home with outpt therapy Plan: Home with outpt therapy Kinjal MCKENZIE CM
--- NOTE | 2024-04-09 10:20 | PHA.DC.MC.R ---
Pharmacy [facility] Pharm[facility] Service has performed discharge medication reconciliation and counseling for this patient. 1. CEPHALEXIN 500MG PO Q6H X 14 DAYS 2. OXYCODONE 5-10MG PO Q6H PRN PAIN The patient's discharge medication list was reviewed for discrepancies and discrepancies were resolved. The patient was counseled on the following discharge medications and changes in medications for homegoing were reviewed. The Reason for Use, instructions for use, and potential side effects were reviewed for all new medications. The patient's questions regarding all of their medications were answered. The patient was able to verbally demonstrate an understanding of their discharge medications. Medications at Discharge Home Medications multivitamin 1 tab PO DAILY vitamin 11/30/20 ropinirole 1 mg tablet 3 mg PO QHS restless legs 11/30/20 apixaban 5 mg tablet 5 mg PO BID blood thinner 12/02/20 cetirizine 10 mg capsule (Zyrtec) 10 mg PO DAILY PRN Allergy Symptoms 09/27/21 rosuvastatin 40 mg tablet 40 mg PO QHS CHOLESTEROL 12/27/22 sotalol 80 mg tablet 80 mg PO BID BP 30 days #180 tabs 06/16/23 mecobalamin (vitamin B12) 5,000 mcg disintegrating tablet 5,000 mcg PO DAILY SUPPLEMENT 09/19/23 furosemide 40 mg tablet 40 mg PO BID diuectic #180 tabs 09/25/23 calcium citrate 500 mg PO TID SUPPLEMENT 01/09/24 cholecalciferol (vitamin D3) 125 mcg (5,000 unit) tablet 125 mcg PO DAILY SUPPLEMENT 01/09/24 lisinopril 10 mg tablet 10 mg PO DAILY BP 01/09/24 omeprazole 20 mg capsule,delayed release 20 mg PO DAILY GERD 01/09/24 cephalexin 500 mg capsule 500 mg PO Q6H 14 days #56 caps 04/09/24 oxycodone 5 mg tablet 5 - 10 mg (1 - 2 x 5 mg) PO Q6H PRN PRN Pain Score 4-10 7 days #42 tabs 04/09/24
[2024-04-09] MEDS: Calcium Carbonate 500 MG Tablet PO (13:14)
== END 2024-04-09 13:15 | disposition home or self-care (01) ==
LOC: MS3 17:42 → SDC 04-10 08:54 → MS3 04-10 08:54
PROVIDERS: Admitting Provider Student in an Organized Health Care Education/Training Program; PCP Family Medicine; Referring Provider Student in an Organized Health Care Education/Training Program; Visit Provider Student in an Organized Health Care Education/Training Program
PROC: 0SRC0JZ Replacement of Right Knee Joint with Synthetic Substitute, Open Approach (ICD-10-PCS; CPT 27447; principal; 2024-04-08 10:15)
DX: M17.11 Unilateral primary osteoarthritis, right knee (principal); I48.91 Unspecified atrial fibrillation; M21.161 Varus deformity, not elsewhere classified, right knee; Z98.84 Bariatric surgery status; G25.81 Restless legs syndrome; M79.7 Fibromyalgia; K21.9 Gastro-esophageal reflux disease without esophagitis; E78.00 Pure hypercholesterolemia, unspecified; I10 Essential (primary) hypertension; Z79.899 Other long term (current) drug therapy; Z79.01 Long term (current) use of anticoagulants; G47.30 Sleep apnea, unspecified
CPT/HCPCS: 27447; 01402; 64447; S2900; 36415; 80048; 82040; 82962; 85025; 85027; 87081; 88305; 88311; 96365; 96366; 97162; 97166; 99221; C1776; J7120; G0378; J2405; J3475

== ENCOUNTER → 2024-05-21 | Outpatient (CLI) | payer MEDICARE, OTHER, SELFPAY ==
[2022-10-18 10:25] VITALS: BMI 53.1
[2024-05-21 09:46] LABS: Absolute Lymphocyte Count 2.77 X10^3/uL (0.83-4.51); Absolute Neutrophil Count 4.3 X10^3/uL (2.0-7.7); Basophil# 0.05 X10^3/uL; Basophil% 0.6 % (0-1); Eosinophil# 0.34 X10^3/uL; Eosinophils% 4.1 % (0-5); Hematocrit 35.9 % (37-47); Hemoglobin 11.4 g/dL (12.0-15.0); Lymphocyte # 2.77 X10^3/ul (0.83-4.51); Lymphocyte % 33.6 % (19-41); Mean Corp Hgb Conc 31.8 g/dL (32-36); Mean Corpuscular Hgb 27.7 pg (27.0-32.0); Mean Corpuscular Volume 87.1 fL (81-99); Mean Platelet Vol. 11.1 fl (6.2-12.0); Monocyte# 0.73 X10^3/uL; Monocyte% 8.8 % (0-10); NRBC Flagged by Analyzer 0 % (0-5); Neutrophil # 4.34 X10^3/uL (2.7-7.7); Neutrophil % 52.7 % (47-70); Platelet Count 292 K/mm3 (150-450); RBC Distribution Width CV 13.2 % (11.6-14.6); RBC Distribution Width SD 42.2 fl (35.1-43.9); Red Blood Count 4.12 M/mm3 (4.2-5.4); White Blood Count 8.3 K/mm3 (4.4-11.0)
== END | disposition home or self-care (01) ==
LOC: PAVLAB 09:20
PROVIDERS: PCP Family Medicine; Referring Provider Internal Medicine Gastroenterology; Visit Provider Internal Medicine Gastroenterology
DX: D64.9 Anemia, unspecified (principal)
CPT/HCPCS: 36415; 85025

== ENCOUNTER 2024-07-11 22:24 | Emergency (ER) | payer MEDICARE, OTHER, SELFPAY ==
[2022-10-18 10:25] VITALS: BMI 53.1
[2024-07-11 22:24] VITALS: PULSE 61; RESP 18; TEMP 36.6; O2SAT 97; BMI 48.1
--- NOTE | 2024-07-11 22:44 | EDS_ITS ---
HPI History of Present Illness Chief Complaint: Allergic Reaction Informant: patient and spouse/S.O. Onset/Context/Timing Onset: Today and Hours Context: Gradual Onset Timing: Continuous Current Severity: Mild Maximum Severity: Moderate Narrative Narrative: 69-year-old female history of hypertension and A-fib on Eliquis. She is on lisinopril and has been on it for years. Since she had pizza the night around 10 to or 8 around 8:00 believes she started having allergic reaction. She does not believe it is from the pizza because she said she is in the same pizza for years with no problem. Since she started having itching all over when she developed hives on her back and legs and then swelling of her lower lip. No trouble breathing or swallowing. No wheezing. She has had multiple episodes like this before. She said she took a total of 100 mg of Benadryl without any relief and typically that resolves her symptoms. Prior similar symptoms: Yes Recent Illness/Hospitalization: No PFSH PFSH Medical History Sludge in gallbladder Loss of hearing Arthritis Anemia Back pain Dietary restriction Leg cramps History of edema History of pain when walking History of CHF (congestive heart failure) History of heart attack Wears glasses Post-menopausal Fibromyalgia Ambulates with cane Osteoarthritis High cholesterol Restless legs Non-smoker BiPAP (biphasic positive airway pressure) dependence History of Holter monitoring (~03/29/21) History of echocardiogram (~08/05/22) History of stress test (~12/10/20) Cardiology follow-up encounter (~11/15/22) History of cardioversion (~2022) Knee pain Hay fever Atrial fibrillation with rapid ventricular response Obstructive sleep apnea Obesity GERD (gastroesophageal reflux disease) (12/28/20) Essential (primary) hypertension Hyperlipidemia Paroxysmal atrial fibrillation (10/2019) Home Medications ?Medication ?Instructions ?Recorded ?Last Taken ?Type multivitamin 1 tab PO DAILY vitamin 11/30/20 04/02/24 History ropinirole 1 mg tablet 3 mg PO QHS restless legs 11/30/20 04/07/24 History apixaban 5 mg tablet 5 mg PO BID blood thinner 12/02/20 04/05/24 20:20 History cetirizine 10 mg capsule (Zyrtec) 10 mg PO DAILY PRN Allergy Symptoms 09/27/21 Unknown History rosuvastatin 40 mg tablet 40 mg PO QHS CHOLESTEROL 12/27/22 04/07/24 History sotalol 80 mg tablet 80 mg PO BID BP 30 days #180 tabs 06/16/23 04/08/24 Rx mecobalamin (vitamin B12) 5,000 5,000 mcg PO DAILY SUPPLEMENT 09/19/23 04/02/24 History mcg disintegrating tablet furosemide 40 mg tablet 40 mg PO BID diuectic #180 tabs 09/25/23 04/07/24 Rx calcium citrate 500 mg PO TID SUPPLEMENT 01/09/24 04/02/24 History cholecalciferol (vitamin D3) 125 125 mcg PO DAILY SUPPLEMENT 01/09/24 04/02/24 History mcg (5,000 unit) tablet lisinopril 10 mg tablet 10 mg PO DAILY BP 01/09/24 04/08/24 History omeprazole 20 mg capsule,delayed 20 mg PO DAILY GERD 01/09/24 04/08/24 History release tramadol 50 mg tablet 50 mg PO Q8H PRN pain 05/21/24 Unknown History prednisone 50 mg tablet 50 mg PO DAILY PRN allergic 07/11/24 Unknown Rx reaction #7 tabs ursodiol 250 mg tablet 80 mg PO Q12H 07/11/24 Unknown History Allergy/AdvReac Type Severity Reaction Status Date / Time Penicillins Allergy Rash Verified 07/11/24 22:24 metoprolol AdvReac itching, Verified 07/11/24 22:24 fatigue, sob, leg edema Family History Mother Thyroid disorder Cancer Father Cancer Brother Diabetes Hypertension Heart disease Surgical History Hx of colonoscopy S/P gastric sleeve procedure History of ovarian cystectomy (~1970) History of left heart catheterization (12/28/20) History of tonsillectomy and adenoidectomy (~1963) Social History adopted: No household members: spouse housing: house number of children: 2 current occupational status: retired current occupation: retired current occupational exposures/hazards: No pets and animals: Yes leisure activities: exercise and reading history of recent travel: No sexually active: Yes Smoking Status: Never smoker second hand exposure: No alcohol intake: former substance use type: does not use diet: other well-balanced diet: daily or most days caffeine: No eating out: rarely or never during the past year weight has: decreased > 10 lbs what type of physical activity do you participate in: swimming frequency: 3-4 times per week duration: 45-60 minutes/day henry/adventist: sabianism seatbelt use: always do you feel safe at home: Yes additional social history: - Jose Luis- Retired ROS ROS ED ROS Narrative Denies recent illness. Constitutional Constitutional ED: Denies chills or fever(s) Eyes Eyes: Denies blurry vision ENT ENT ED: Denies ear pain Cardiovascular Cardiovascular: Denies chest pain Respiratory/Chest Respiratory/Chest: Denies cough or dyspnea Gastrointestinal Gastrointestinal: Denies abdominal pain Genitourinary Genitourinary ED: Denies dysuria Musculoskeletal Musculoskeletal: Denies arthralgias Integumentary Reports rash; Denies abscess or Abrasions Neurologic Neurologic: Denies headache(s) or paresthesias Psychiatric Psychiatric: Denies anxiety or depression Endocrine Endocrinology: Denies cold intolerance Hematologic/Lymphatic Hematologic/Lymphatic: Reports none Allergic/Immunologic Allergic/Immunologic ED: Denies mouth swelling, tongue swelling or urticaria EXAM Physical Exam Narrative Exam Narrative: 69-year-old female no acute distress. Sitting upright in bed. No trouble breathing or swallowing. Spouse at bedside. H EENT exam pupils round react light. Tongue not swollen. Posterior pharynx not swollen. No trouble swallowing or breathing. No stridor or drooling. Lower lip is mildly swollen. Neck nontender no lymphadenopathy. Lungs clear to auscultation bilaterally. No wheezing. No distress. Heart regular rate about 60. No murmur. Chest wall no rash or hives. Nontender. Abdomen soft nontender. No rash or hives. Moving all 4 extremities. Nontender no edema. No rash or hives. Back nontender. No rash or hives. She is moving all 4 extremities. She is awake and alert. Const Vital Signs: 07/11/24 22:24 07/11/24 23:25 07/12/24 00:00 Temperature 97.8 F Temperature Source Oral Pulse Rate 61 57 L 55 L Respiratory Rate 18 17 16 Blood Pressure 148/73 H 112/65 Blood Pressure Mean 98 80 Pulse Ox 97 96 94 Oxygen Delivery Method Room Air Room Air Room Air Positive well nourished and well developed; Negative for cachectic, contractures or unkempt General Appearance ED: well developed and NAD; Negative for unkempt, cachectic, contractures, cyanotic, diaphoretic or pallor Nutritional Appearance: Negative for cachectic HEENT Reports moist mucous membranes Negative for trauma or tenderness Eyes PERRL and EOMs intact bilaterally General Eye ED: Negative for pale conjunctiva, scleral icterus or other Neck no lymphadenopathy, supple and no JVD Chest Wall inspection of chest normal and palpation of chest normal Chest: Negative for other Resp normal respiratory effort and clear to auscultation bilaterally Effort and Inspection: Negative for retractions Auscultation: Negative for rales, rhonchi, wheezes or diminished lung sounds Cardio regular rate, regular rhythm, S1 normal heart sound, S2 normal heart sound and no murmurs Palpation: Negative for palpable S3 or palpable S4 Rate: Negative for bradycardia or tachycardic Rhythm: Negative for abnormal rhythm GI normal to inspection, nondistended, normoactive bowel sounds, non-tender, non- distended and no masses Palpation: soft; Negative for tender, guarding, mass or rebound tenderness pr esent Back/Spine no CVA tenderness General Back: Negative for CVA tenderness Cervical Spine: Negative for cervical spine tenderness Thoracic Spine / Upper Back: Negative for thoracic spinal tenderness or paraspinal muscle tenderness Lumbar Spine / Lower Back: Negative for lumbar spinal tenderness Extremity normal to inspection General Extremety ED: Negative for edema or tenderness General Extremity: Negative for edema Neuro oriented x3 and CN's II-XII intact bilaterally Sensorium / Orientation: alert Motor Exam: strength 5/5 throughout; Negative for general weakness or strength abnormal Psych mental status grossly normal Appearance: Negative for unkempt Attitude: No agitated Mood & Affect: Negative for depressed, anxious or tearful Skin no rashes or lesions noted, no wounds and skin turgor normal General Skin Exam: Negative for jaundice or pallor Lesions: No lesion noted Rashes: No rashes noted Trauma: Negative for abrasion Wounds: Negative for wounds noted MDM MDM MDM Narrative Medical decision making narrative: 69-year-old female on lisinopril with reported allergic reaction that started on 8 PM the night about 2-1/2+ hours ago. She has had this multiple times in the past. States she had hives as of since resolved. She took 100 mg of Benadryl prior to arrival. Said the reaction is actually improving. She does still have swelling of her lower lip. I am considering this to be lisinopril reaction but I do not think it is because of the hives. She will be given Solu-Medrol and IV Pepcid and observed. I think this is a true allergic reaction to what I do not specifically know. Repeat exam patient is doing well both at 11 PM and 11:52 PM. The swelling of her lower lip is not resolved but is definitely no worse. She has no rash. She is resting comfortably. We are just watching to ensure that this does not get any worse. Clinically this may have been a generalized allergic reaction versus an BLU inhibitor induced angioedema. The thing that would go against that would be that the hives that she had at home. Repeat exam at 12:39 AM patient doing well. Feels good. The swelling in her left is almost gone. We discussed the generalized allergic reaction versus an BLU inhibitor induced angioedema. This could be either. Given our power responded to medications and the rash it is probably more likely allergic reaction. We did discuss stopping her BLU inhibitor and following up with her primary care physician. History & Record Review Discussion w/independent historian: Patient and Family Additional record(s) reviewed:: Prior inpatient record Discharge Plan Triage Chief Complaint: Allergic Reaction ED Provider: Choco Lopez Dx/Rx/DC Orders Clinical Impression: Allergic reaction Instructions: ED General Allergic Reactions Prescriptions: New prednisone 50 mg tablet 50 mg PO DAILY PRN (Reason: allergic reaction) Qty: 7 0RF Rx Instructions: Use only as needed if you are having an allergic reaction. No Action apixaban 5 mg tablet 5 mg PO BID Zyrtec 10 mg capsule 10 mg PO DAILY PRN (Reason: Allergy Symptoms) omeprazole 20 mg capsule,delayed release(DR/EC) 20 mg PO DAILY rosuvastatin 40 mg tablet 40 mg PO QHS lisinopril 10 mg tablet 10 mg PO DAILY calcium citrate 250 mg calcium tablet 500 mg PO TID cholecalciferol (vitamin D3) 125 mcg (5,000 unit) tablet 125 mcg PO DAILY mecobalamin (vitamin B12) 5,000 mcg tablet,disintegrating 5,000 mcg PO DAILY tramadol 50 mg tablet 50 mg PO Q8H PRN (Reason: pain) ursodiol 250 mg tablet 80 mg PO Q12H ropinirole 1 mg tablet 3 mg PO QHS multivitamin Tablet 1 tab PO DAILY sotalol 80 mg tablet 80 mg PO BID 30 Days Qty: 180 3RF furosemide 40 mg tablet 40 mg PO BID Qty: 180 3RF Primary Care Provider: Walter Mendez Referrals: Walter Mendez MD [Primary Care Provider] - As soon as possible Activity Restrictions/Additional Instructions: This all may be due to a generalized allergic reaction which can be treated with Benadryl as you did and the steroids which we gave you here in the emergency department. However could also be secondary to a reaction to your blood pressure medication the lisinopril. That is a class of medications called BLU inhibitors. You can get an BLU inhibitor induced angioedema which would go along with the swelling of your lip. Discussed this with your primary care physician because they may need to change her blood pressure medication. Return if worse. Print Language: Comoran Disposition Disposition: Home, Self Care
[2024-07-11] MEDS: MethylPREDNISolone 125 MG/2 ML Vial IV (22:47)
[2024-07-11] MEDS: Famotidine 200 MG/20 ML MDV 20 MG in 0.9% Normal Saline (Pres. free 8 ML 300 MG IV (22:51)
[2024-07-11 23:25] VITALS: BP 148/73; PULSE 57; RESP 17; O2SAT 96
[2024-07-12] VITALS: BP 112/65; PULSE 55; RESP 16; O2SAT 94
[2024-07-12 00:47] VITALS: BP 120/63; PULSE 68; RESP 15; TEMP 36.6; O2SAT 97
== END 2024-07-12 00:49 | disposition home or self-care (01) ==
PROVIDERS: Emergency Provider Emergency Medicine; PCP Family Medicine; Visit Provider Emergency Medicine
DX: T78.40XA Allergy, unspecified, initial encounter (principal); I11.0 Hypertensive heart disease with heart failure; I50.9 Heart failure, unspecified; I48.0 Paroxysmal atrial fibrillation; R22.0 Localized swelling, mass and lump, head; I25.2 Old myocardial infarction; K21.9 Gastro-esophageal reflux disease without esophagitis; M79.7 Fibromyalgia; E78.00 Pure hypercholesterolemia, unspecified; G25.81 Restless legs syndrome; G47.33 Obstructive sleep apnea (adult) (pediatric); Z79.01 Long term (current) use of anticoagulants; Z88.0 Allergy status to penicillin; Z98.84 Bariatric surgery status; Z79.899 Other long term (current) drug therapy
CPT/HCPCS: 96374; 96375; 99283; A4216

== ENCOUNTER 2024-07-31 09:00 | Outpatient (RCR) | payer MEDICARE, OTHER, SELFPAY ==
[2022-10-18 10:25] VITALS: BMI 53.1
--- NOTE | 2024-04-11 11:55 | HP.PTEVAL_ITS ---
Patient's Visit Information Visit Information Visit Information: ELEN ARMAS is a 68 year old F referred to Physical Therapy by VALENTINA Camarillo with a diagnosis of R TKR 04/08/24. Date of Evaluation: 04/11/24 Physical Therapist: Suki Jeff, PT, Cert MDT Visit Plan Frequency: 2-3x /Week Duration: 2-4 Months Plan: 1. Restore knee flexion and extension range of motion 2. Improve strength of quads, hamstrings and hips in both open and closed chain. 3. Progress gait with LRD as tolerated. Re-integrate functional mobility with stairs and transfers. May use VASO and ice as needed for edema. 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 DIFFICULTY WALKING. USING WALKER. Present since: CHRONIC R KNEE PAIN Pain Scale: WORST 10/10, LEAST 4/10 Currently: 8/10 Commenced as a result of: ARTHRITIS Worse: BENDING, STANDING Better: WALKING, ICE Disturbed sleep: YES Previous history/Previous treatment: PHYSICAL THERAPY, INJECTIONS Treatment this episode: R TKR 04/08/24 Gait: FWW. IN AND OUT OF HOUSE UP AND DOWN 3 STEPS TWO HANDS ON ONE RAIL, ONE STEP AT A TIME. Bowel or Bladder Dysfunction: NO PMH/Recent major surgery: SEE [facility] EMR - GASTRIC SLEEVE JUL 2023 Objective Objective: GAIT: THIS PATIENT AMBULATES INDEP'LY INTO PT TODAY WITH A FWW, DECREASED CADANCE AND A LIMP ON THE RLE ALONG WITH DECREASED HEEL STRIKE AND TOE OFF PHASES OF GAIT. NO LOB. WOMAC score: 56/96 TU'.20.33 WITH FWW R knee flexion AROM: 70 degrees R knee ext AROM: -15 degrees LE STREGTH MEASURED IN PEAK FORCE WITH STRAIN GAUGE: R knee flex 12.6 LBS, L 34.4 LBS R knee ext 6.1 LBS, L 42.9 LBS R hip 4.7 LBS, L 22.2 LBS Palpation: R LE INCISION IS COVERED WITH BANDAGE AND PATIENT IS WEARING TIM HOSE JENNIFER. TREATMENT: GAIT TRAINING WITH FWW ON LEVEL SURFACES AND WALKER ADJUSTMENT TO PROPER HEIGHT. HEP REVIEW. INSTRUCTION IN APPROPRIATE ELEVATION OF R LE FOR EDEMA REDUCTION. INSTRUCTION IN AVOIDANCE OF PROPPING UNDER KNEE. PATIENT COMMUNICATED A GOOD UNDERSTANDING OF INSTRUCTIONS GIVEN AND GAIT IMPROVED SIGNIFICANTLY WITH CUEING AND WALKER ADJUSTMENT. Balance/Special Test Scores Lower Extremity Functional Score: 3 WOMAC Total Score: 56 WOMAC Percentatge: 41.6700 Goals Goal 1:: PATIENT WILL HAVE DECREASED EDEMA IN RLE SYMMETRICAL TO LLE. Goal Time Frame: 8-12 Weeks Goal 2:: PATIENT WILL HAVE INCREASED R KNEE ROM TO AT LEAST 0-120 DEG FLEXION. Goal Time Frame: 6-8 Weeks Goal 3:: PATIENT WILL HAVE NORMAL GAIT PATTERN WITHOUT USE OF AD. Goal Time Frame: 8-12 Weeks Goal 4:: PATIENT WILL BE ABLE TO NEGOTIATE STEPS WITH 1 HR WITH RECIPROCAL PATTERN WITHOUT LIMITATIONS. Goal Time Frame: 6-8 Weeks Goal 5:: PATIENT WILL COMPLETE 8 STANDS IN 30 SECS WITHOUT UE ASSIST TO DEMONSTRATE IMPROVED LE FUNCTIONAL STRENGTH. Goal Time Frame: 6-8 Weeks Goal 6:: PATIENT WILL COMPLETE TUG IN < 30 SECS WITH STRAIGHT CANE INDEP'LY TO DEMONSTRATE IMPROVED GAIT STABILITY Goal Time Frame: 6-8 Weeks Rehabilitation Potential Physical Therapy Diagnosis: PATIENT HAS SIGNS AND SYMPTOMS CONSISTENT WITH R TKA. SHE HAS SUBSEQUENT SWELLING, HYPOMOBILITY, WEAKNESS, DIFFICULTY WALKING AND INCREASED PAIN. SHE WOULD BENEFIT FROM PT TO ADDRESS THE ABOVE LIMITATIONS TO PROGRESS BACK TO ALL ADL ACTIVITIES WITHOUT LIMITATIONS. Rehabilitation Potential: Good Anticipated Interventions Patient/Client Instruction: Educate patient on: Condition, Plan of Care and Risk Factors For the Purpose of:: To improve self management Therapeutic Exercise to Include: Strength training, Neuromotor development and In an aquatic setting Comment: NO AQUATIC THERAPY UNTIL OK'D BY SURGEON AND INCISION WELL HEALED. For the Purpose of:: To decrease pain, To improve muscle performance and motor function, To increase tolerance to activity/condition/position, To improve performance and independence with ADL's, To improve ability of physical actions for home/community/work/leisure, To improve gait and locomotor functions, To increase flexibility/ROM, To improve balance, To improve safety with gait and To improve self management Manual Therapy Techniques to Include: Scar massage For the Purpose of:: To decrease soft tissue restriction Cryotherapy (ice pack, ice massage): Yes Vasopneumatic device: Yes For the Purpose of:: To decrease swelling/inflammation Text: Thank you for the opportunity to evaluate your patient. For Medicare and Medicare HMO plans, please review the plan of care and approve it. It will need to be FAXED BACK to us at [phone] for Medicare purposes. For Medicare only, by signing this I certify the plan of care. Please let me know if there are questions or concerns regarding this plan of care. Physician Signature: Date:
--- NOTE | 2024-05-03 12:34 | HP.PTREVAL_ITS ---
Re-Evaluation Intro: VALENTINA Camarillo, It has been my pleasure to treat ELEN ARMAS over the last 11 visits for R TKR 04/08/24. Please see the progress note below for an update on the physical therapy plan of care! Subjective Subjective: PATIENT REPORTS HER PAIN HAS BEEN A LOT MORE MANAGABLE SINCE STARTING GABAPENTIN. Objective Objective/Function: PATIENT WAS SEEN TODAY FOR RE-ASSESSMENT OF PROGRESS TOWARD THE SET PT GOALS AND THE NEED FOR FURTHER PHYSICAL THERAPY VS READINESS FOR DISCHARGE. SHE IS MAKING GOOD PROGRESS WITH PT AND HER PAIN IS UNDER BETTER CONTROL NOW. SHE IS A GOOD CANDIDATE TO CONTINUE PT BASED ON PROGRES MADE AND ROOM FOR FUTHER IMPROVEMENT. SHE IS AGREEABLE TO CONINUING. SHE AMBULATED INDEP'LY INTO PT TODAY ON A FWW WITHOUT ANY LOB AND SYMMETRICAL WB ON JENNIFER LE'S. SHE DOES NOT HAVE FULL R KNEE EXT YET SO SHE IS STILL WALKING ON A SLIGHTLY BENT KNEE. SHE STILL HAS SOME DIFFICULTY INITIATING GAIT AFTER SITTING BUT HER GAIT SMOOTHS OUT AFTER ABOUT 10 FEET. SHE ALSO STILL REQUIRES CUEING TO STAND AND WALK MORE ERECT BUT THIS IS IMRPOVING WELL. WE STARTED GAIT TRAINING WITH A CANE TODAY ON LEVEL SURFACES AND SHE PICKED UP ON THE SEQUENCING QUICKLY AND HER BALANCE IS GOOD. SHE IS GOING TO START PARCICING IN HER HOME. UPON FURTHER EXAM TODAY: WOMAC score: 44/96 TU.16 WITH FWW 30 STS TEST - 8 WITH ONE UE UPON RISING AND NO UE'S UPON SITTING. R knee flexion AROM: 105 degrees R knee ext AROM: -10 degrees LE STREGTH MEASURED IN PEAK FORCE WITH STRAIN GAUGE: R knee flex 33.5 LBS R knee ext 34.5 LBS R hip 29.4 LBS LEFS NOT GIVEN TODAY. Plan Plan Plan: CONTINUE PT 2-3 TIMES A WK X 6-8 WKS: 1. Restore knee flexion and extension range of motion 2. Improve strength of quads, hamstrings and hips in both open and closed chain. 3. Progress gait with LRD as tolerated. Re-integrate functional mobility with stairs and transfers. May use VASO and ice as needed for edema. Balance/Gait/Functional tests Balance/Special Test Scores Lower Extremity Functional Score: 3 WOMAC Total Score: 44 WOMAC Percentage: 54.1700 Goals Goals Goal 1:: PATIENT WILL HAVE DECREASED EDEMA IN RLE SYMMETRICAL TO LLE. Goal Time Frame: 8-12 Weeks Goal Progress: Progressing Goal 2:: PATIENT WILL HAVE INCREASED R KNEE ROM TO AT LEAST 0-120 DEG FLEXION. Goal Time Frame: 6-8 Weeks Goal Progress: Progressing Goal 3:: PATIENT WILL HAVE NORMAL GAIT PATTERN WITHOUT USE OF AD. Goal Time Frame: 8-12 Weeks Goal Progress: Progressing Goal 4:: PATIENT WILL BE ABLE TO NEGOTIATE STEPS WITH 1 HR WITH RECIPROCAL PATTERN WITHOUT LIMITATIONS. Goal Time Frame: 6-8 Weeks Goal 5:: PATIENT WILL COMPLETE 8 STANDS IN 30 SECS WITHOUT UE ASSIST TO DEM ONSTRATE IMPROVED LE FUNCTIONAL STRENGTH. Goal Time Frame: 6-8 Weeks Goal Progress: Progressing Goal 6:: PATIENT WILL COMPLETE TUG IN < 30 SECS WITH STRAIGHT CANE INDEP'LY TO DEMONSTRATE IMPROVED GAIT STABILITY Goal Time Frame: 6-8 Weeks Goal Progress: Progressing Anticipated Interventions Anticipated Interventions Patient/Client Instruction: Educate patient on: Condition, Plan of Care and Risk Factors For the Purpose of:: To improve self management Therapeutic Exercise to Include: Strength training, Neuromotor development and In an aquatic setting Comment: NO AQUATIC THERAPY UNTIL OK'D BY SURGEON AND INCISION WELL HEALED. For the Purpose of:: To decrease pain, To improve muscle performance and motor function, To increase tolerance to activity/condition/position, To improve performance and independence with ADL's, To improve ability of physical actions for home/community/work/leisure, To improve gait and locomotor functions, To increase flexibility/ROM, To improve balance, To improve safety with gait and To improve self management Manual Therapy Techniques to Include: Scar massage For the Purpose of:: To decrease soft tissue restriction Cryotherapy (ice pack, ice massage): Yes Vasopneumatic device: Yes For the Purpose of:: To decrease swelling/inflammation Re-Evaluation Ending Re-evaluation ending: Please do not hesitate to contact me at [phone] by phone or if you have questions or concerns regarding this new plan of care! Sincerely, Suki Jeff, PT, Cert MDT
--- NOTE | 2024-05-27 12:30 | HP.PTREVAL ---
Re-Evaluation Intro: VALENTINA Camarillo, It has been my pleasure to treat ELEN ARMAS over the last 21 visits for R TKR 04/08/24. Please see the progress note below for an update on the physical therapy plan of care! Subjective Subjective: PATIENT REPORTS SHE IS HAPPY TO BE USING THE CANE AND HER PAIN IS A LOT BETTER. SHE IS REQUESTING TO TRANSITION TO AQUATIC THERAPY. Objective Objective/Function: PATIENT WAS SEEN TODAY FOR RE-ASSESSMENT OF PROGRESS TOWARD THE SET PT GOALS AND THE NEED FOR FURTHER PHYSICAL THERAPY VS READINESS FOR DISCHARGE. SHE IS MAKING GOOD PROGRESS IN TERMS OF STRENGTH, PAIN, GAIT BUT VERY LITTLE PROGRESS WITH ROM. SHE IS A GOOD CANDIDATE TO CONTINUE PT BASED ON PROGRESS MADE AND ROOM FOR FURTHER IMPROVEMENT. SHE APPEARS TO BE A GOOD CANDIDATE FOR AQUATIC THERAPY. UPON ASSESSMENT TODAY: WOMAC score: 44/[address] CANE 30 STS TEST - 9 WITHOUT UE ASSIST R knee flexion AROM: 106 degrees R knee ext AROM: -10 degrees LE STREGTH MEASURED IN PEAK FORCE WITH STRAIN GAUGE: R knee flex 37.3 LBS R knee ext 39.2 LBS R hip 32.2 LBS LEFS NOT GIVEN TODAY Circumference Measurements: Midline R patella 47 cm, L 49 cm (Patient reports a history of L>R edema). 6 proximal to patella - R 74.5 cm. (L not useful for comparison). Plan Plan Plan: CONTINUE PT 2-3 TIMES A WK X 6-8 WKS WITH AQUATIC THERAPY IF SURGEON CONCURS FOR: 1. Restore knee flexion and extension range of motion 2. Improve strength of quads, hamstrings and hips in both open and closed chain. 3. Progress gait with LRD as tolerated. Re-integrate functional mobility with stairs and transfers. Balance/Gait/Functional tests Balance/Special Test Scores Lower Extremity Functional Score: 3 WOMAC Total Score: 35 WOMAC Percentage: 63.5500 Goals Goals Goal 1:: PATIENT WILL HAVE DECREASED EDEMA IN RLE SYMMETRICAL TO LLE - N/A NEW GOAL - PATIENT WILL HAVE DECREASED C/O RLE PAIN TO 0-3/10 WITH ADL'S Goal Time Frame: 8-12 Weeks Goal Progress: Progressing Goal 2:: PATIENT WILL HAVE INCREASED R KNEE ROM TO AT LEAST 0-120 DEG FLEXION. Goal Time Frame: 6-8 Weeks Goal Progress: Progressing Goal 3:: PATIENT WILL HAVE NORMAL GAIT PATTERN WITHOUT USE OF AD. Goal Time Frame: 8-12 Weeks Goal Progress: Progressing Goal 4:: PATIENT WILL BE ABLE TO NEGOTIATE STEPS WITH 1 HR WITH RECIPROCAL PATTERN WITHOUT LIMITATIONS. Goal Time Frame: 6-8 Weeks Goal 5:: PATIENT WILL COMPLETE 8 STANDS IN 30 SECS WITHOUT UE ASSIST TO DEMONSTRATE IMPROVED LE FUNCTIONAL STRENGTH - GOAL MET NEW GOAL - PATIENT WILL COMPLETE 10 STANDS IN 30 SEC WITHOUT UE ASSIST TO DEMO IMPROVED LE FUNCTIONAL STRENGTH. Goal Time Frame: 6-8 Weeks Goal Progress: Progressing Goal 6:: PATIENT WILL COMPLETE TUG IN < 30 SECS WITH STRAIGHT CANE INDEP'LY TO DEMONSTRATE IMPROVED GAIT STABILITY - GOAL MET NEW GOAL - PATIENT WILL COMPLETE TUG IN < [address] CANE I'LY TO DEMO IMPROVED GAIT STABILITY. Goal Time Frame: 6-8 Weeks Goal Progress: Progressing Anticipated Interventions Anticipated Interventions Patient/Client Instruction: Educate patient on: Condition, Plan of Care and Risk Factors For the Purpose of:: To improve self management Therapeutic Exercise to Include: Strength training, Neuromotor development and In an aquatic setting Comment: NO AQUATIC THERAPY UNTIL OK'D BY SURGEON AND INCISION WELL HEALED. For the Purpose of:: To decrease pain, To improve muscle performance and motor function, To increase tolerance to activity/condition/position, To improve performance and independence with ADL's, To improve ability of physical actions for home/community/work/leisure, To improve gait and locomotor functions, To increase flexibility/ROM, To improve balance, To improve safety with gait and To improve self management Manual Therapy Techniques to Include: Scar massage For the Purpose of:: To decrease soft tissue restriction Cryotherapy (ice pack, ice massage): Yes Vasopneumatic device: Yes For the Purpose of:: To decrease swelling/inflammation Re-Evaluation Ending Re-evaluation ending: Please do not hesitate to contact me at [phone] by phone or if you have questions or concerns regarding this new plan of care! Sincerely, Suki Jeff, PT, Cert MDT
[2024-06-19 10:49] LABS: Absolute Lymphocyte Count 2.52 X10^3/uL (0.83-4.51); Absolute Neutrophil Count 3.5 X10^3/uL (2.0-7.7); Basophil# 0.05 X10^3/uL; Basophil% 0.7 % (0-1); Eosinophil# 0.31 X10^3/uL; Eosinophils% 4.5 % (0-5); Hematocrit 35.5 % (37-47); Hemoglobin 11.3 g/dL (12.0-15.0); Lymphocyte # 2.52 X10^3/ul (0.83-4.51); Lymphocyte % 36.3 % (19-41); Mean Corp Hgb Conc 31.8 g/dL (32-36); Mean Corpuscular Hgb 27.3 pg (27.0-32.0); Mean Corpuscular Volume 85.7 fL (81-99); Mean Platelet Vol. 11.2 fl (6.2-12.0); Monocyte% 8.6 % (0-10); NRBC Flagged by Analyzer 0 % (0-5); Neutrophil # 3.45 X10^3/uL (2.7-7.7); Neutrophil % 49.6 % (47-70); Platelet Count 286 K/mm3 (150-450); RBC Distribution Width CV 13.4 % (11.6-14.6); Red Blood Count 4.14 M/mm3 (4.2-5.4)
[2024-06-19 11:23] LABS: Hemoglobin A1c 5.2 % (3.8-5.6)
[2024-06-19 11:56] LABS: ALB/GLOB Ratio 0.9 RATIO (0.9-2.4); AST(SGOT) 18 U/L (15-37); Alanine Aminotransfer ALT/SGPT 17 U/L (13-56); Albumin, Serum 3.5 g/dL (3.2-5.0); Alkaline Phosphatase 85 U/L (45-117); Anion Gap 4 (5-15); BUN 17 mg/dL (7-18); BUN/Creat Ratio 25.6 RATIO (10-20); Calcium,Total 9.8 mg/dL (8.5-10.1); Chloride 108 mmol/L (98-107); Cholesterol 108 mg/dL (200); Creatinine, Serum 0.66 mg/dL (0.55-1.02); EST Glomerular Filtration Rate 94 mL/min (>60); Est Glom Filt Rate - Afr Amer 113 mL/min (>60); Ferritin 30 ng/mL (8-252); Globulin 3.9 g/dL (2.2-4.2); Glucose 94 mg/dL (74-106); High Density Lipoprotein 62 mg/dL; Iron 72 ug/dL (50-170); Magnesium 2.4 mg/dL (1.6-2.6); Potassium 4.2 mmol/L (3.5-5.1); Protein, Total 7.4 g/dL (6.4-8.2); Sodium Level 139 mmol/L (136-145); Triglycerides 61 mg/dL; Very Low Density Lipoprotein 12 mg/dL (5-40)
--- NOTE | 2024-06-19 14:13 | HP.PTREVAL ---
Re-Evaluation Intro: VALENTINA Camarillo, It has been my pleasure to treat ELEN ARMAS over the last 29 visits for R TKR 04/08/24. Please see the progress note below for an update on the physical therapy plan of care! Subjective Subjective: PATIENT REPORTS R KNEE PAIN RANGING 0-8/10. STILL GETTING UP TO 8/10 KNEE PAIN AT TIMES. SHE REPORTS OCCASSIONAL HIP PAIN TOO AT NIGHT DEPENDING ON WHICH HIP SHE IS SLEEPING ON. SHE REPORTS A LOT OF STIFFNESS ALL OVER IN THE MORNING THAT IS CHRONIC THAT SHE RELATES TO FIBROMYALGIA OR OTHER. SHE REPORTS SHE IS WORKING HARD AND FEELS SHE IS PROGRESSING BUT SHE STILL NEEDS TO USE THE CANE TO GET AROUND AND HER KNEE IS STILL STIFF. Objective Objective/Function: PATIENT WAS SEEN TODAY FOR RE-ASSESSMENT OF PROGRESS TOWARD THE SET PT GOALS AND THE NEED FOR FURTHER PHYSICAL THERAPY VS READINESS FOR DISCHARGE. WE HAVE BEEN FOCUSING ON ROM WITH LITTLE PROGRESS. SHE IS EXERCISING IN THE POOL ON HER OWN. WE ARE ALSO WORKING ON STRENGTH AND GAIT BUT OVER ALL HER PROGRESS IS PROGRESSING SLOWLY OR PLATEAUING AND SHE IS STILL REPORTING UP TO 8/10 KNEE PAIN AT TIMES. PHYSICIAN RE-ASSESSMENT RECOMMENDED. APPOINTMENT PENDING MONDAY. UPON ASSESSMENT TODAY: WOMAC score: 37/[address] CANE R knee flexion AROM: 109 degrees R knee ext AROM: -8 degrees Plan Plan Plan: PHYSICIAN RE-CHECK Balance/Gait/Functional tests Balance/Special Test Scores Lower Extremity Functional Score: 31 WOMAC Total Score: 37 WOMAC Percentage: 61.4600 Goals Goals Goal 1:: PATIENT WILL HAVE DECREASED EDEMA IN RLE SYMMETRICAL TO LLE - N/A NEW GOAL - PATIENT WILL HAVE DECREASED C/O RLE PAIN TO 0-3/10 WITH ADL'S Goal Time Frame: 8-12 Weeks Goal Progress: Not Progressing Goal 2:: PATIENT WILL HAVE INCREASED R KNEE ROM TO AT LEAST 0-120 DEG FLEXION. Goal Time Frame: 6-8 Weeks Goal Progress: Progressing slowly Goal 3:: PATIENT WILL HAVE NORMAL GAIT PATTERN WITHOUT USE OF AD. Goal Time Frame: 8-12 Weeks Goal Progress: Progressing slowly Goal 4:: PATIENT WILL BE ABLE TO NEGOTIATE STEPS WITH 1 HR WITH RECIPROCAL PATTERN WITHOUT LIMITATIONS. Goal Time Frame: 6-8 Weeks Goal Progress: Not Progressing. Goal 5:: PATIENT WILL COMPLETE 8 STANDS IN 30 SECS WITHOUT UE ASSIST TO DEMONSTRATE IMPROVED LE FUNCTIONAL STRENGTH - GOAL MET NEW GOAL - PATIENT WILL COMPLETE 10 STANDS IN 30 SEC WITHOUT UE ASSIST TO DEMO IMPROVED LE FUNCTIONAL STRENGTH. Goal Time Frame: 6-8 Weeks Goal Progress: NT Goal 6:: PATIENT WILL COMPLETE TUG IN < 30 SECS WITH STRAIGHT CANE INDEP'LY TO DEMONSTRATE IMPROVED GAIT STABILITY - GOAL MET NEW GOAL - PATIENT WILL COMPLETE TUG IN < [address] CANE I'LY TO DEMO IMPROVED GAIT STABILITY. Goal Time Frame: 6-8 Weeks Goal Progress: Progressing Anticipated Interventions Anticipated Interventions Patient/Client Instruction: Educate patient on: Condition, Plan of Care and Risk Factors For the Purpose of:: To improve self management Therapeutic Exercise to Include: Strength training, Neuromotor development and In an aquatic setting Comment: NO AQUATIC THERAPY UNTIL OK'D BY SURGEON AND INCISION WELL HEALED. For the Purpose of:: To decrease pain, To improve muscle performance and motor function, To increase tolerance to activity/condition/position, To improve performance and independence with ADL's, To improve ability of physical actions for home/community/work/leisure, To improve gait and locomotor functions, To increase flexibility/ROM, To improve balance, To improve safety with gait and To improve self management Manual Therapy Techniques to Include: Scar massage For the Purpose of:: To decrease soft tissue restriction Cryotherapy (ice pack, ice massage): Yes Vasopneumatic device: Yes For the Purpose of:: To decrease swelling/inflammation Re-Evaluation Ending Re-evaluation ending: Please do not hesitate to contact me at [phone] by phone or if you have questions or concerns regarding this new plan of care! Sincerely, Suki Jeff, PT, Cert MDT
[2024-06-19 14:17] LABS: Vitamin B12 668 pg/mL (211-911); Vitamin D,25 Hydroxy 61.3 ng/mL
[2024-06-23 01:06] LABS: Vitamin B1, Thiamine 185.5 nmol/L (66.5-200.0); Zinc, Plasma or Serum 68 ug/dL (44-115)
--- NOTE | 2024-07-31 10:42 | HP.PTDCSUM ---
Discharge Summary D/C summary: It has been my pleasure to treat ELEN ARMAS referred by VALENTINA Camarillo, with the diagnosis of R TKR 04/08/24 for a total of 40 visit(s). Discharge Date: 07/31/24 Please see the following information for a summary of their discharge status. Subjective Subjective: PATIENT REPORTS SHE IS DOING REALLY GOOD AND HAVING THE LAST FEW WEEKS OF THERAPY HAVE MADE A BIG DIFFERENCE. SHE REPORTS 98% IMPROVEMENT AND STATES SHE IS HAPPY WITH HER PROGRESS. SHE STATES SHE IS STILL USING THE CANE AND WHEN SHE CAN GET RID OF THAT SHE THINKS SHE WILL FEEL 100%. SHE REPORTS CONTINUED USE OF THE CANE OUTSIDE DUE TO THE ICE, SALT AND SNOW AND INSIDE DUE TO CONFIDENCE. SHE THINKS SHE WAS USING THE CANE FOR ABOUT A YEAR AND A HALF BEFORE THE SURGERY. USING THE CANE ABOUT 70% OF THE TIME IN THE HOUSE BUT EACH DAY IS A LITTLE LESS. DID WATER EX BEFORE HER APPOINT TODAY. RELATES PAIN TO OVER ACTIVITITY THAT IS ALLEVIATED BY EXTRA STRENGTH TYLENOL AND RANGES 0 - 5/10. MOSTLY JUST GETTING STIFFNESS NOW. DOING WATER EXERCISE INDEP'LY 3-4 DAYS A WEEK AND FINDS THAT VERY HELPFUL AND RELATES A LOT OF HER KNEE REHAB PROGRESS TO BEING ABLE TO GET BACK IN THE WATER. Pain Knee: Pain Intensity (Out of 10): 0 Overall Improvement % Improvement: 98 Objective Objective/Function: PATIENT WAS SEEN TODAY FOR RE-ASSESSMENT OF PROGRESS TOWARD THE SET PT GOALS AND THE NEED FOR FURTHER PHYSICAL THERAPY VS READINESS FOR DISCHARGE. THIS PATIENT HAS MADE FURTHER GAINS IN STRENGTH AND ROM SINCE LAST RE-CHECK AND HER PAIN IS MUCH MORE UNDER CONTROL NOW. SHE HAS BEEN EXERCISING IN THE POOL ON HER OWN. SHE IS APPROPRIATE FOR AND AGREEABLE TO DISCHARGE TO [facility] AT THIS TIME. UPON ASSESSMENT TODAY: WOMAC score: 13/[address] 20.15 WITHOUT THE CANE. (TUG OBSERVATIONS - PATIENT DENIES PATIENT WITH BOTH TESTS, HAS SIMILAR GAIT PATTERN WITH BOTH TESTS HOWEVER WALKS MORE ERECT WITHOUT THE CANE. WEIGHT BEARING TIME IS EQUAL, CADANCE IS SLOW, NO LOB AND STRIDE LENGTH IS SHORT). 30 STS TEST: 10 WITHOUT UE ASSIST AND SYMMETRICAL WT. BEARING JENNIFER LE'S. R knee flexion AROM: 113 degrees R knee ext AROM: -5 degrees LE STREGTH MEASURED IN PEAK FORCE WITH STRAIN GAUGE: R knee flex 38.8 LBS R knee ext 41.6 LBS R hip 34.4 LBS STEPS: INDEP SAFE GAIT DEMO'D TODAY UP AND DOWN STEPS RECIPROCALLY WITH ONE HR AND ST. CANE. SHE IS UNSAFE WITH ONE HR AND NO CANE. BALANCE: PATIENT IS ABLE TO SLS ON EA LE X APPROX 4 SEC EA WITHOUT UE ASSIST. SHE ALSO ABLE TO TANDEM STANCE (BUT NOT WALK) WITHOUT UE ASSIST. OTHER: PATIENT COMMUNICATED/DEMONSTRATED A GOOD UNDERSTANDING OF ALL INSTRUCTIONS AFTER GIVEN TODAY AND IS AGREEABLE TO DISCHARGE. Goals Goal 1:: PATIENT WILL HAVE DECREASED EDEMA IN RLE SYMMETRICAL TO LLE - N/A NEW GOAL - PATIENT WILL HAVE DECREASED C/O RLE PAIN TO 0-3/10 WITH ADL'S Goal Progress: Progressing Goal 2:: PATIENT WILL HAVE INCREASED R KNEE ROM TO AT LEAST 0-120 DEG FLEXION. Goal Progress: Progressing slowly Goal 3:: PATIENT WILL HAVE NORMAL GAIT PATTERN WITHOUT USE OF AD. Goal Progress: Progressing slowly Goal 4:: PATIENT WILL BE ABLE TO NEGOTIATE STEPS WITH 1 HR WITH RECIPROCAL PATTERN WITHOUT LIMITATIONS. Goal Progress: Progressing slowly Goal 5:: PATIENT WILL COMPLETE 8 STANDS IN 30 SECS WITHOUT UE ASSIST TO DEMONSTRATE IMPROVED LE FUNCTIONAL STRENGTH - GOAL MET NEW GOAL - PATIENT WILL COMPLETE 10 STANDS IN 30 SEC WITHOUT UE ASSIST TO DEMO IMPROVED LE FUNCTIONAL STRENGTH. Goal Progress: Goal Met Goal 6:: PATIENT WILL COMPLETE TUG IN < 30 SECS WITH STRAIGHT CANE INDEP'LY TO DEMONSTRATE IMPROVED GAIT STABILITY - GOAL MET NEW GOAL - PATIENT WILL COMPLETE TUG IN < [address]E I'LY TO DEMO IMPROVED GAIT STABILITY. Goal Progress: Goal Met Plan Plan: D/C TO [facility] AND PHYSICIAN FOLLOW UP. PATIENT AGREEABLE. D/C Information d/c sentence: If there are questions or concerns regarding this patient's physical therapy, please feel free to call me at [phone]. Thank you for the referral of this patient. Sincerely, Suki Jeff, PT, Cert MDT Balance/Gait/Functional tests Balance/Special Test Scores Lower Extremity Functional Score: 31 WOMAC Total Score: 13 WOMAC Percentage: 86.4600 Improvement % Improvement: 98
== END 2024-07-31 19:00 | disposition home or self-care (01) ==
LOC: PT 09:00
PROVIDERS: PCP Family Medicine; Referring Provider Physician Assistant Surgical; Visit Provider Physician Assistant Surgical
DX: M17.11 Unilateral primary osteoarthritis, right knee (principal); M25.561 Pain in right knee; Z47.1 Aftercare following joint replacement surgery; Z96.651 Presence of right artificial knee joint; I48.0 Paroxysmal atrial fibrillation; R73.02 Impaired glucose tolerance (oral); E78.5 Hyperlipidemia, unspecified; E55.9 Vitamin D deficiency, unspecified
CPT/HCPCS: 36415; 80053; 80061; 82306; 82607; 82728; 82746; 83036; 83540; 83735; 84425; 84443; 84630; 85025; 97016; 97110; 97116; 97140; 97162; 97530

== ENCOUNTER 2024-09-05 00:32 | Emergency (ER) | payer MEDICARE, OTHER, SELFPAY ==
[2022-10-18 10:25] VITALS: BMI 53.1
[2024-09-05] VITALS (13 sets, daily range): BP systolic 131–199; BP diastolic 59–93; PULSE 54–97; RESP 12–19; TEMP 36.7–36.9; O2SAT 92–100; BMI 42.3
--- NOTE | 2024-09-05 02:03 | RAD_ITS ---
PROCEDURE: NECK FOR SOFT TISSUE REASON FOR EXAM: 69-year-old female, questionable allergic reaction, swelling. TECHNIQUE: AP and lateral view(s) of the soft tissues of the neck COMPARISON: None. FINDINGS: No evidence of soft tissue swelling or radiopaque foreign body. Prevertebral and epiglottis contours appear normal. Degenerative changes throughout the visualized spine. RAD/Neck for Soft Tissue IMPRESSION: NEGATIVE SOFT TISSUE NECK Reading Location: [id number]
--- NOTE | 2024-09-05 03:23 | EX.ED.DYSGE1 ---
HPI History of Present Illness Chief Complaint: Allergic Reaction Informant: patient and spouse/S.O. Narrative Narrative: Patient is a 69-year-old female with past medical history of hypertension hyperlipidemia and paroxysmal atrial fibrillation currently on Eliquis. She states that back in May or June she developed swelling in her face and lips and it was felt that this was related to angioedema from lisinopril. She states she was taken off the medication and was not prescribed anything similar in order to prevent reoccurrence of the angioedema. She states she has been doing well but that this evening she developed a sensation of burning and itching in her ears and then noticed itching and hives along her upper arms and then felt like her mouth/lips were swelling. She states that she had prednisone at home so she took a dose as well as Benadryl and Pepcid. She states that despite this she still felt like symptoms were worsening and therefore EMS was called. EMS gave her IM epinephrine and Solu-Medrol. The patient states that there is no new exposures and she is unsure what could have potentially have caused the reaction [facility] Medical History Sludge in gallbladder Loss of hearing Arthritis Anemia Back pain Dietary restriction Leg cramps History of edema History of pain when walking History of CHF (congestive heart failure) History of heart attack Wears glasses Post-menopausal Fibromyalgia Ambulates with cane Osteoarthritis High cholesterol Restless legs Non-smoker BiPAP (biphasic positive airway pressure) dependence History of Holter monitoring (~03/29/21) History of echocardiogram (~08/05/22) History of stress test (~12/10/20) Cardiology follow-up encounter (~11/15/22) History of cardioversion (~2022) Knee pain Hay fever Atrial fibrillation with rapid ventricular response Obstructive sleep apnea Obesity GERD (gastroesophageal reflux disease) (12/28/20) Essential (primary) hypertension Hyperlipidemia Paroxysmal atrial fibrillation (10/2019) Home Medications ?Medication ?Instructions ?Recorded ?Last Taken ?Type multivitamin 1 tab PO DAILY vitamin 11/30/20 04/02/24 History ropinirole 1 mg tablet 3 mg PO QHS restless legs 11/30/20 04/07/24 History apixaban 5 mg tablet 5 mg PO BID blood thinner 12/02/20 04/05/24 20:20 History cetirizine 10 mg capsule (Zyrtec) 10 mg PO DAILY PRN Allergy Symptoms 09/27/21 Unknown History rosuvastatin 40 mg tablet 40 mg PO QHS CHOLESTEROL 12/27/22 04/07/24 History sotalol 80 mg tablet 80 mg PO BID BP 30 days #180 tabs 06/16/23 04/08/24 Rx mecobalamin (vitamin B12) 5,000 5,000 mcg PO DAILY SUPPLEMENT 09/19/23 04/02/24 History mcg disintegrating tablet furosemide 40 mg tablet 40 mg PO BID diuectic #180 tabs 09/25/23 04/07/24 Rx calcium citrate 500 mg PO TID SUPPLEMENT 01/09/24 04/02/24 History cholecalciferol (vitamin D3) 125 125 mcg PO DAILY SUPPLEMENT 01/09/24 04/02/24 History mcg (5,000 unit) tablet omeprazole 20 mg capsule,delayed 20 mg PO DAILY GERD 01/09/24 04/08/24 History release prednisone 50 mg tablet 50 mg PO DAILY PRN allergic 07/11/24 Unknown Rx reaction #7 tabs epinephrine 0.3 mg/0.3 mL 0.3 mg (0.3 mL) IM Q15M PRN 09/05/24 Unknown Rx injection, auto-injector (EpiPen anaphylaxis #2 ea 2-Neri) prednisone 20 mg tablet 40 mg (2 x 20 mg) PO DAILY 5 days 09/05/24 Unknown Rx #10 tabs Allergy/AdvReac Type Severity Reaction Status Date / Time BLU Inhibitors Allergy Severe ANGIOEDEMA, Verified 07/22/24 09:53 hives and itching Penicillins Allergy Rash Verified 07/11/24 22:24 metoprolol AdvReac itching, Verified 07/11/24 22:24 fatigue, sob, leg edema Family History Mother Thyroid disorder Cancer Father Cancer Brother Diabetes Hypertension Heart disease Surgical History Hx of colonoscopy S/P gastric sleeve procedure History of ovarian cystectomy (~1970) History of left heart catheterization (12/28/20) History of tonsillectomy and adenoidectomy (~1963) Social History adopted: No household members: spouse housing: house number of children: 2 current occupational status: retired current occupation: retired current occupational exposures/hazards: No pets and animals: Yes leisure activities: exercise and reading history of recent travel: No sexually active: Yes Smoking Status: Never smoker second hand exposure: No alcohol intake: former substance use type: does not use diet: other well-balanced diet: daily or most days caffeine: No eating out: rarely or never during the past year weight has: decreased > 10 lbs what type of physical activity do you participate in: swimming frequency: 3-4 times per week duration: 45-60 minutes/day henry/latter-day: mandaeism seatbelt use: always do you feel safe at home: Yes additional social history: - Jose Luis- Retired ROS ROS ED Constitutional Constitutional ED: Denies chills or fever(s) Eyes Eyes: Denies blurry vision or change in vision ENT ENT ED: Reports other Details: Positive lip swelling Cardiovascular Cardiovascular: Denies chest pain Respiratory/Chest Respiratory/Chest: Reports dyspnea; Denies cough Gastrointestinal Gastrointestinal: Denies abdominal pain, diarrhea, nausea or vomiting Genitourinary Genitourinary ED: Denies dysuria Musculoskeletal Musculoskeletal: Denies myalgias Integumentary Denies rash Neurologic Neurologic: Denies headache(s) Hematologic/Lymphatic Hematologic/Lymphatic: Reports easy bleeding and easy bruising Allergic/Immunologic Allergic/Immunologic ED: Reports mouth swelling and urticaria EXAM Physical Exam Const Vital Signs: 09/05/24 00:37 09/05/24 00:45 09/05/24 01:00 Temperature 98.1 F Temperature Source Oral Pulse Rate 58 L 63 54 L Respiratory Rate 18 13 12 Blood Pressure 167/93 H 161/89 H 155/69 H Blood Pressure Mean 117 108 94 Pulse Ox 98 98 98 Oxygen Delivery Method Room Air 09/05/24 01:15 09/05/24 01:30 09/05/24 01:33 Temperature Temperature Source Pulse Rate 69 Respiratory Rate 14 13 17 Blood Pressure 156/83 H 159/91 H 199/91 H Blood Pressure Mean 103 110 127 Pulse Ox 96 95 98 Oxygen Delivery Method Room Air 09/05/24 01:45 09/05/24 02:00 09/05/24 02:00 Temperature Temperature Source Pulse Rate 97 60 Respiratory Rate 18 16 15 Blood Pressure 131/59 H 148/82 H 156/63 H Blood Pressure Mean 79 104 90 Pulse Ox 95 97 97 Oxygen Delivery Method Room Air Room Air Room Air 09/05/24 02:21 09/05/24 02:30 09/05/24 02:45 Temperature Temperature Source Pulse Rate 58 L 63 62 Respiratory Rate 17 13 19 H Blood Pressure 163/76 H 148/82 H Blood Pressure Mean 101 100 Pulse Ox 93 96 Oxygen Delivery Method Room Air 09/05/24 03:00 09/05/24 03:42 Temperature 98.4 F Temperature Source Pulse Rate 68 67 Respiratory Rate 13 17 Blood Pressure 161/83 H 161/80 H Blood Pressure Mean 105 107 Pulse Ox 92 99 Oxygen Delivery Method Room Air Positive well nourished, well developed and obese General Appearance ED: well developed; Negative for pallor Nutritional Appearance: obese HEENT HEENT Narrative: There is soft tissue swelling to the chin and lower lip There is mild soft tissue swelling to the bilateral ears No tongue swelling noted; no oral lesions; Eyes PERRL and EOMs intact bilaterally Neck supple Neck Narrative: No subcutaneous emphysema or crepitance palpated No brawny edema in the submental space to suggest Kaleb's angina Resp normal respiratory effort and clear to auscultation bilaterally Resp Narrative: No nasal flaring retractions tachypnea or accessory muscle use Cardio regular rate and regular rhythm GI normal to inspection, nondistended, normoactive bowel sounds, non-tender, non-distended and no masses Auscultation: normoactive bowel sounds Palpation: soft Extremity normal to inspection Extremity Narrative: No asymmetric edema no pitting edema negative Homans' sign bilaterally Neuro oriented x3, CN's II-XII intact bilaterally and no sensory deficits noted Sensorium / Orientation: alert Motor Exam: strength 5/5 throughout Psych mental status grossly normal Skin no rashes or lesions noted General Skin Exam: Negative for jaundice or pallor MDM MDM MDM Narrative Medical decision making narrative: Patient arrived to the ER hypertensive but otherwise with stable vitals and in no acute respiratory distress. She reported symptoms consistent with an allergic reaction as she initially felt like her ears were burning and itching and swelling and then noted hives across the upper extremities followed by swelling of the chin and lower lip. She is no longer on an BLU inhibitor nor did she is switched to an ARB and therefore my concern for angioedema is low. Concerned that she has a secondary infection causing the symptoms is also low such as epiglottitis or peritonsillar abscess based on her presentation and improvement with the provided medication. In order to ensure there is no signs of airway narrowing or epiglottitis I did elect to perform a soft tissue neck x-ray which revealed no acute finding. The patient was watched in the ER for approximately 3 and half hours from the medication she took at home as well as the epinephrine given by EMS. On reevaluation there has been continued improvement of her swelling and she does not have signs of anaphylaxis or airway compromise. Without rebound changes there is no need for further observation or admission to the hospital and she can be discharged home and strongly urged to follow-up with a director shopper marketing to find the cause of her allergic reaction. History & Record Review Discussion w/independent historian: EMS personnel, Patient and Significant other Radiography Diagnostic Testing: Clinical Impression(s) from Imaging Studies Soft Tissue Neck X-Ray 09/05/24 02:03 IMPRESSION: NEGATIVE SOFT TISSUE NECK Reading Location: [facility] Soft tissue neck x-ray as interpreted by the emergency medicine physician reveals no signs of airway compromise foreign body or epiglottitis Discharge Plan Triage Chief Complaint: Allergic Reaction ED Provider: Doroteo Bartlett Dx/Rx/DC Orders Clinical Impression: Acute allergic reaction, Paroxysmal atrial fibrillation, Essential (primary) hypertension, 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 Instructions: ED General Allergic Reactions, ED Using an Injection Pen Prescriptions: New prednisone 20 mg tablet 40 mg PO DAILY 5 Days Qty: 10 0RF epinephrine [EpiPen 2-Neri] 0.3 mg/0.3 mL auto-injector 0.3 mg IM Q15M PRN (Reason: anaphylaxis) Qty: 2 0RF Rx Instructions: for 2 doses No Action apixaban 5 mg tablet 5 mg PO BID Zyrtec 10 mg capsule 10 mg PO DAILY PRN (Reason: Allergy Symptoms) omeprazole 20 mg capsule,delayed release(DR/EC) 20 mg PO DAILY rosuvastatin 40 mg tablet 40 mg PO QHS calcium citrate 250 mg calcium tablet 500 mg PO TID cholecalciferol (vitamin D3) 125 mcg (5,000 unit) tablet 125 mcg PO DAILY mecobalamin (vitamin B12) 5,000 mcg tablet,disintegrating 5,000 mcg PO DAILY prednisone 50 mg tablet 50 mg PO DAILY PRN (Reason: allergic reaction) Qty: 7 0RF Rx Instructions: Use only as needed if you are having an allergic reaction. ropinirole 1 mg tablet 3 mg PO QHS multivitamin Tablet 1 tab PO DAILY sotalol 80 mg tablet 80 mg PO BID 30 Days Qty: 180 3RF furosemide 40 mg tablet 40 mg PO BID Qty: 180 3RF Primary Care Provider: Walter Mendez Referrals: Dakota Lou MD [Med Staff - Active Staff] - Walter Mendez MD [Primary Care Provider] - Activity Restrictions/Additional Instructions: Please contact ENT to discuss if they do allergy testing. Use the 40 mg of prednisone daily for the next 5 days to help control recurrent or further inflammatory response. If you develop tongue or lip swelling or difficulty breathing or swallowing use the epinephrine pen that were prescribed and then present to the hospital for further evaluation. Print Language: Upper Sorbian Disposition Disposition: Home, Self Care Discharge Date/Time: 09/05/24 03:44
== END 2024-09-05 03:44 | disposition home or self-care (01) ==
PROVIDERS: Emergency Provider Emergency Medicine; PCP Family Medicine; Visit Provider Emergency Medicine
DX: T78.40XA Allergy, unspecified, initial encounter (principal); I11.0 Hypertensive heart disease with heart failure; I50.9 Heart failure, unspecified; I48.0 Paroxysmal atrial fibrillation; R22.0 Localized swelling, mass and lump, head; I25.2 Old myocardial infarction; M79.7 Fibromyalgia; K21.9 Gastro-esophageal reflux disease without esophagitis; E66.9 Obesity, unspecified; E78.00 Pure hypercholesterolemia, unspecified; G25.81 Restless legs syndrome; G47.33 Obstructive sleep apnea (adult) (pediatric); Z88.0 Allergy status to penicillin; Z98.84 Bariatric surgery status; Z79.01 Long term (current) use of anticoagulants; Z79.899 Other long term (current) drug therapy
CPT/HCPCS: 70360; 99284

== ENCOUNTER → 2024-09-17 | Outpatient (CLI) | payer MEDICARE, OTHER, SELFPAY ==
[2022-10-18 10:25] VITALS: BMI 53.1
--- NOTE | 2024-09-17 08:44 | RAD_ITS ---
PROCEDURE: BONE SURVEY COMP(AXIAL APPEND) REASON FOR EXAM: MGUS COMPARISON: 09/06/2022. FINDINGS: Skull: No lytic or blastic bone lesion. C-T-L Spine: Degenerative changes identified within the cervical thoracic and lumbar spine. No lytic or blastic bone lesion. No compression deformity. Ribs: Unremarkable. AP Pelvis: Unremarkable. AP Humeri: No lytic or blastic bone lesion. AP Femurs: No lytic or blastic bone lesion. RAD/Bone Survey Comp(Axial&Append) IMPRESSION: Degenerative changes in the cervical, thoracic and lumbar spine. No lytic or b lastic lesions. No significant change from prior study. Reading Location: [id number]
== END | disposition home or self-care (01) ==
LOC: RAD 08:44
PROVIDERS: PCP Family Medicine; Referring Provider Internal Medicine Medical Oncology; Visit Provider Internal Medicine Medical Oncology
DX: D47.2 Monoclonal gammopathy (principal)
CPT/HCPCS: 77075

== ENCOUNTER → 2024-10-23 | Outpatient (CLI) | payer MEDICARE, OTHER, SELFPAY ==
[2022-10-18 10:25] VITALS: BMI 53.1
--- NOTE | 2024-10-23 10:00 | US_ITS ---
PROCEDURE: ABDOMEN LIMITED (USABDL), 10/23/2024 REASON FOR EXAM: RUQ PAIN COMPARISON: None FINDINGS: Liver: Slightly echogenic on some images. 14.5 cm in length. Gallbladder: Question layering gallbladder sludge versus artifact. No visualized stones, wall thickening or pericholecystic fluid. Reportedly, sonographic Morrison's was positive. Biliary tree: Unremarkable. CBD measures 4 mm. Pancreas: Partially obscured by shadowing bowel gas, grossly unremarkable as visualized. Right kidney: Unremarkable. 10.7 cm in length. Other: No visualized free fluid. US/Abdomen Limited IMPRESSION: 1. Reported sonographic Morrison's sign is nonspecific in the absence of visualiz ed cholelithiasis or other sonographic evidence to suggest cholecystitis. This should be confirmed by clinician exam. No biliary dilatation. If unexplained symptoms persist, consider CT. 2. Slightly echogenic appearance of the hepatic parenchyma, finding most typica lly associated with hepatic steatosis however early fibrosis could also have this appearance. Correlate with clinical and la boratory evaluation. 3. Additional description as above. Reading Location: [id number]
== END | disposition home or self-care (01) ==
LOC: US 09:59
PROVIDERS: PCP Family Medicine; Referring Provider Internal Medicine Gastroenterology; Visit Provider Internal Medicine Gastroenterology
DX: R10.11 Right upper quadrant pain (principal)
CPT/HCPCS: 76705

== ENCOUNTER → 2024-11-13 | Outpatient (CLI) | payer MEDICARE, OTHER, SELFPAY ==
[2022-10-18 10:25] VITALS: BMI 53.1
--- NOTE | 2024-11-13 09:13 | US_ITS ---
PROCEDURE: ELASTOGRAPHY PARENCHYMA/ORGAN, 11/13/2024 REASON FOR EXAM: FATTY LIVER COMPARISON: 10/23/2024 TECHNIQUE: Elastography was performed for non-invasive assessment of liver tissue stiffness utilizing a betNOW S-shear wave imaging unit. FINDINGS: Number of measurements: 15 measurements across 3 regions, 5 measurements per region. US probe: CA1-7A. EQI median: 10.6 kPa EQI median velocity: 1.87 m/s IQR/Med: 16.5-29.1% (kPa) and 8.8-13.3% (m/s). If the IQR/Med is IQR/median >30% (for kPa) or >15% in m/s, the variance in the measurements is a large and the accuracy of the measurement may be in question. US/Elastography Parenchyma/Organ IMPRESSION: 1. Liver stiffness is 10.6 kPa. Per the below 2020 SRU criteria, this is sugges tive of compensated advanced chronic liver disease but requires further testing for confirmation. 2. Additional description as above. Assessment is per the Update to the SRU Liver Elastography Consensus Statement (2020) Note that the above assessment of liver fibrosis is vendor-neutral and intended for use in fibrosis related to viral etiologies and non-alcoholic fatty-liver disease (NAFLD); in causes other than viral hepat itis and NAFLD, the cutoff values are currently not well established. In some patients with NAFLD, the cutoff values for cACLD may be lower (7-9 kPa). Note also that in the setting of elevated LFTs, nonfasting or vascular congestion, the stage of lifer fibrosis may be overestimated. Previous SRU reference values: <1.37 m/s (5.7kPa): No to mild fibrosis 1.37 m/s - 2.2 m/s: Moderate to severe fibrosis >2.2 m/s (15kPa): Significant fibrosis / cirrhosis Reading Location: [id number]
== END | disposition home or self-care (01) ==
LOC: US 09:12
PROVIDERS: PCP Family Medicine; Referring Provider Internal Medicine Gastroenterology; Visit Provider Internal Medicine Gastroenterology
DX: K76.0 Fatty (change of) liver, not elsewhere classified (principal)
CPT/HCPCS: 76981

== ENCOUNTER → 2024-11-28 | Outpatient (CLI) | payer MEDICARE, OTHER, SELFPAY ==
[2022-10-18 10:25] VITALS: BMI 53.1
--- NOTE | 2024-11-28 08:56 | BI_ITS ---
EXAM: SCRN MAMM (CAD)W/BHARATH BILAT DATE: 11/28/2024 CLINICAL HISTORY: F, Age 69 y/o , SCREENING Grandmother with breast cancer. BREAST CANCER RISK ASSESSMENT: Not assessed. TECHNIQUE: Bilateral screening digital breast tomosynthesis with 2D and 3D images. Computer aided detection. COMPARISON: Prior exam(s) dated November 28, 2023.. FINDINGS: TISSUE DENSITY: The breast tissue is composed of scattered area of fibroglandular density. Bilateral Breast Mammographic Findings: No significant masses, calcifications or other abnormalities are identified. No suspicious masses, areas of developing architectural distortion, or suspicious calcifications. There has been no significant interval change. BI/SCRN MAMM (CAD)W/BHARATH BILAT IMPRESSION: OVERALL FINAL ASSESSMENT: BIRADS 1 NEGATIVE RECOMMENDATION: Routine annual follow-up in 1 Year A letter with findings and recommendations will be mailed to the patient. Reading Location: [id number]
== END | disposition home or self-care (01) ==
LOC: OPBI 08:55
PROVIDERS: PCP Family Medicine; Referring Provider Family Medicine; Visit Provider Family Medicine
DX: Z12.31 Encounter for screening mammogram for malignant neoplasm of breast (principal)
CPT/HCPCS: 77063; 77067

== ENCOUNTER → 2024-12-19 | Outpatient (CLI) | payer MEDICARE, OTHER, SELFPAY ==
[2022-10-18 10:25] VITALS: BMI 53.1
[2024-12-19 10:34] LABS: Absolute Lymphocyte Count 2.22 X10^3/uL (0.83-4.51); Absolute Neutrophil Count 2.5 X10^3/uL (2.0-7.7); Basophil# 0.05 X10^3/uL; Basophil% 0.9 % (0-1); Eosinophil# 0.38 X10^3/uL; Eosinophils% 6.5 % (0-5); Lymphocyte # 2.22 X10^3/ul (0.83-4.51); Lymphocyte % 37.9 % (19-41); Mean Corp Hgb Conc 31.6 g/dL (32-36); Mean Corpuscular Hgb 27.8 pg (27.0-32.0); Mean Platelet Vol. 12.3 fl (6.2-12.0); Monocyte# 0.65 X10^3/uL; Monocyte% 11.1 % (0-10); NRBC Flagged by Analyzer 0 % (0-5); Neutrophil # 2.54 X10^3/uL (2.7-7.7); Neutrophil % 43.4 % (47-70); Platelet Count 215 K/mm3 (150-450); RBC Distribution Width CV 13.6 % (11.6-14.6); RBC Distribution Width SD 43.9 fl (35.1-43.9); Red Blood Count 4.32 M/mm3 (4.2-5.4); White Blood Count 5.9 K/mm3 (4.4-11.0)
[2024-12-19 10:45] LABS: Hemoglobin A1c 5.6 % (<=5.6)
[2024-12-19 11:09] LABS: ALB/GLOB Ratio 1.1 RATIO (0.9-2.4); AST(SGOT) 31 U/L (<=31); Alanine Aminotransfer ALT/SGPT 21 U/L (<=34); Albumin, Serum 3.8 g/dL (3.4-4.8); Alkaline Phosphatase 97 U/L (35-104); Anion Gap 10 (5-15); BUN 24 mg/dL (4-19); BUN/Creat Ratio 29.5 RATIO (10-20); Calcium,Total 9.8 mg/dL (7.6-11.0); Carbon Dioxide 24.5 mmol/L (21.0-32.0); Chloride 105 mmol/L (98-108); Cholesterol 115 mg/dL (<=200); Creatinine, Serum 0.82 mg/dL (0.70-1.20); EST Glomerular Filtration Rate 77 (>60); Globulin 3.5 g/dL (2.2-4.2); Glucose 79 mg/dL (70-99); High Density Lipoprotein 61 mg/dL; Low Density Lipoprotein Calc. 45 mg/dL; Magnesium 2.1 mg/dL (1.5-2.2); Potassium 4.4 mmol/L (3.3-5.1); Protein, Total 7.2 g/dL (5.9-8.4); Sodium Level 139 mmol/L (133-145); Total Bilirubin 0.44 mg/dL (0.00-1.30); Triglycerides 47 mg/dL; Very Low Density Lipoprotein 9 mg/dL (5-40); Vitamin D,25 Hydroxy 53.1 ng/mL (30-100); cholesterol:hdl ratio screen 1.88
== END | disposition home or self-care (01) ==
LOC: MFPLAB 08:38
PROVIDERS: PCP Family Medicine; Referring Provider Family Medicine; Visit Provider Family Medicine
DX: I10 Essential (primary) hypertension (principal); E55.9 Vitamin D deficiency, unspecified; R73.02 Impaired glucose tolerance (oral)
CPT/HCPCS: 36415; 80053; 80061; 82306; 83036; 83735; 84443; 85025

== ENCOUNTER → 2025-01-29 | Outpatient (CLI) | payer MEDICARE, OTHER, SELFPAY ==
[2022-10-18 10:25] VITALS: BMI 53.1
[2025-01-29 13:04] LABS: Hematocrit 39.1 % (37-47); Hemoglobin 12.7 g/dL (12.0-15.0); Mean Corp Hgb Conc 32.5 g/dL (32-36); Mean Corpuscular Volume 86.9 fL (81-99); Mean Platelet Vol. 11.5 fl (6.2-12.0); Platelet Count 234 K/mm3 (150-450); RBC Distribution Width CV 14.4 % (11.6-14.6); RBC Distribution Width SD 46.0 fl (35.1-43.9); Red Blood Count 4.50 M/mm3 (4.2-5.4); White Blood Count 7.0 K/mm3 (4.4-11.0)
[2025-01-29 14:35] LABS: AST(SGOT) 30 U/L (<=31); Alanine Aminotransfer ALT/SGPT 26 U/L (<=34); Albumin, Serum 4.0 g/dL (3.4-4.8); Alkaline Phosphatase 112 U/L (35-104); Anion Gap 9 (5-15); BUN 25 mg/dL (4-19); BUN/Creat Ratio 29.8 RATIO (10-20); Calcium,Total 9.9 mg/dL (7.6-11.0); Carbon Dioxide 25.0 mmol/L (21.0-32.0); Chloride 104 mmol/L (98-108); Cholesterol 134 mg/dL (<=200); Ferritin 48 ng/mL (22-378); Globulin 3.4 g/dL (2.2-4.2); Glucose 96 mg/dL (70-99); Low Density Lipoprotein Calc. 52 mg/dL; Potassium 4.4 mmol/L (3.3-5.1); Triglycerides 61 mg/dL; Very Low Density Lipoprotein 12 mg/dL (5-40); Vitamin B12 1544 pg/mL (180-914); Vitamin D,25 Hydroxy 61.0 ng/mL (30-100); cholesterol:hdl ratio screen 1.91
[2025-01-29 15:04] LABS: FOLATES,SERUM (FOLIC ACID) > 40.00 ng/mL (4.60-34.80)
[2025-01-29 15:15] LABS: Iron 131 ug/dL (50-170); Magnesium 2.5 mg/dL (1.5-2.2)
[2025-02-03 22:07] LABS: Vitamin B1, Thiamine 194.8 nmol/L (66.5-200.0); Zinc, Plasma or Serum 83 ug/dL (44-115)
== END | disposition home or self-care (01) ==
LOC: PAVLAB 11:49
PROVIDERS: PCP Family Medicine; Referring Provider Surgery; Visit Provider Surgery
DX: E55.9 Vitamin D deficiency, unspecified (principal); Z90.3 Acquired absence of stomach [part of]; E78.5 Hyperlipidemia, unspecified; E61.7 Deficiency of multiple nutrient elements; Z86.39 Personal history of other endocrine, nutritional and metabolic disease
CPT/HCPCS: 36415; 80053; 80061; 82306; 82607; 82728; 82746; 83540; 83735; 84425; 84630; 85027

== ENCOUNTER → 2025-03-06 | Outpatient (CLI) | payer MEDICARE, OTHER, SELFPAY ==
[2022-10-18 10:25] VITALS: BMI 53.1
--- NOTE | 2025-03-06 07:43 | ECHOD_ITS ---
Reason For Study Reason For Study: AFib/Flutter Procedure This was a 2D Doppler, Color Flow transthoracic echocardiogram. Exam performed in department. Left Ventricle Normal LV size. Left ventricular systolic function is normal. The left ventricular ejection fraction is 65 %. No regional wall motion abnormalities noted. Right Ventricle Normal RV size. Normal systolic function. Atria Normal left atrium. Normal right atrium. Mitral Valve Normal mitral valve. Mild (1+) eccentric mitral valve insufficiency. Tricuspid Valve Normal tricuspid valve. Mild tricuspid valve insufficiency. Pulmonary artery systolic pressure is 32 mmHg. Aortic Valve Trisinus/trileaflet aortic valve. Pulmonic Valve Normal pulmonic valve. Great Vessels Normal aortic root. The pulmonary artery is normal size. Inferior vena cava collapse with respiration. Pericardium/Pleural No pericardial effusion. MMode/2D Measurements & Calculations LVIDd: 5.2 cm IVSd: 0.99 cm Ao root diam: 3.4 cm LVIDs: 3.8 cm LVPWd: 0.92 cm RVDd: 4.1 cm FS: 26.7 % LAV(MOD-bp): 78.4 ml LVAd ap4: 27.8 cm2 SV(MOD-sp4): 43.6 ml LAV(MOD-bp) Indexed: 36.4 ml/m2 LVLd ap4: 7.4 cm SI(MOD-sp4): 20.3 ml/m2 LAV(MOD-sp2): 81.1 ml EDV(MOD-sp4): 84.7 ml LAV(MOD-sp4): 68.8 ml EDV(sp4-el): 89.4 ml LVAs ap4: 17.8 cm2 LVLs ap4: 6.1 cm ESV(MOD-sp4): 41.1 ml ESV(sp4-el): 43.7 ml EF(MOD-sp4): 51.5 % EF(sp4-el): 51.0 % SV(sp4-el): 45.6 ml LA A4 area: 22.9 cm2 LA dimension(2D): 4.4 cm RA A4 area: 21.9 cm2 Time Measurements MV dec time: 0.23 sec Doppler Measurements & Calculations MV E max patrick: 102.9 cm/sec Lat Peak E' Patrick: 9.6 cm/sec Med Peak E' Patrick: 7.5 cm/sec MV A max patrick: 75.1 cm/sec E/E' lat: 10.8 E/E' med: 13.7 MV E/A: 1.4 MV V2 max: 119.4 cm/sec MV P1/2t max patrick: 121.3 cm/sec Ao V2 max: 167.1 cm/sec MV max P.7 mmHg MV P1/2t: 87.9 msec Ao max P.2 mmHg MV V2 mean: 56.7 cm/sec Ao V2 mean: 106.1 cm/sec MV mean P.6 mmHg MV dec slope: 404.1 cm/sec2 Ao mean P.4 mmHg MV V2 VTI: 50.9 cm MVA(P1/2t): 2.5 cm2 Ao V2 VTI: 44.9 cm AV (velocity ratio): 0.80 LV V1 max: 138.3 cm/sec MR max patrick: 484.9 cm/sec PA V2 max: 93.6 cm/sec LV V1 max P.6 mmHg MR max P.0 mmHg LV V1 mean P.2 mmHg LV V1 mean: 96.7 cm/sec LV V1 VTI: 36.1 cm TR max patrick: 265.7 cm/sec TR max P.2 mmHg ECHO/Echo Complete Interpretation Summary Normal LV size. Left ventricular systolic function is normal. The left ventricular ejection fraction is 65 %. Mild (1+) eccentric mitral valve insufficiency. Mild tricuspid valve insufficiency. Ordering Physician: Ovidio Lambert Referring Physician: Ovidio Lambert Performed By: Brodwolf, Sohail, RCS
== END | disposition home or self-care (01) ==
LOC: CVS 07:43
PROVIDERS: PCP Family Medicine; Referring Provider Internal Medicine Cardiovascular Disease; Visit Provider Internal Medicine Cardiovascular Disease
DX: I48.19 Other persistent atrial fibrillation (principal)
CPT/HCPCS: 93306

== ENCOUNTER → 2025-03-14 | Outpatient (CLI) | payer MEDICARE, OTHER, SELFPAY ==
[2025-03-13 17:28] VITALS: BMI 53.1
== END | disposition home or self-care (01) ==
LOC: LABSPEC 13:12
PROVIDERS: PCP Family Medicine; Referring Provider Physician Assistant Surgical; Visit Provider Physician Assistant Surgical
DX: R82.90 Unspecified abnormal findings in urine (principal)
CPT/HCPCS: 87077; 87086; 87088; 87186

== ENCOUNTER → 2025-04-09 | Outpatient (CLI) | payer MEDICARE, OTHER, SELFPAY ==
[2025-03-13 17:28] VITALS: BMI 53.1
[2025-04-09 09:17] LABS: Mucous, Urine 0 SEEN /hpf (<or=2+)
[2025-04-09 10:44] LABS: Hematocrit 39.4 % (37-47); Hemoglobin 13.2 g/dL (12.0-15.0); Immature Granulocytes Count 0.010 X10^3/uL (0.0-0.0); Mean Corp Hgb Conc 33.5 g/dL (32-36); Mean Corpuscular Volume 88.1 fL (81-99); Mean Platelet Vol. 11.8 fl (6.2-12.0); NRBC Flagged by Analyzer 0 % (0-5); Platelet Count 242 K/mm3 (150-450); RBC Distribution Width CV 12.7 % (11.6-14.6); RBC Distribution Width SD 41.4 fl (35.1-43.9); Red Blood Count 4.47 M/mm3 (4.2-5.4); White Blood Count 6.0 K/mm3 (4.4-11.0)
[2025-04-09 11:26] LABS: AST(SGOT) 27 U/L (<=31); Alanine Aminotransfer ALT/SGPT 21 U/L (<=34); Albumin, Serum 4.1 g/dL (3.4-4.8); Alkaline Phosphatase 98 U/L (35-104); Anion Gap 10 (5-15); BUN 26 mg/dL (4-19); BUN/Creat Ratio 29.3 RATIO (10-20); Calcium,Total 9.9 mg/dL (7.6-11.0); Carbon Dioxide 26.3 mmol/L (21.0-32.0); Chloride 101 mmol/L (98-108); Cholesterol 115 mg/dL (<=200); Globulin 3.5 g/dL (2.2-4.2); Glucose 90 mg/dL (70-99); Low Density Lipoprotein Calc. 34 mg/dL; Magnesium 2.2 mg/dL (1.5-2.2); Potassium 4.7 mmol/L (3.3-5.1); Triglycerides 61 mg/dL; Very Low Density Lipoprotein 12 mg/dL (5-40); Vitamin B12 1570 pg/mL (180-914); Vitamin D,25 Hydroxy 67.0 ng/mL (30-100); cholesterol:hdl ratio screen 1.68
[2025-04-09 11:53] LABS: FOLATES,SERUM (FOLIC ACID) 29.80 ng/mL (4.60-34.80)
[2025-04-09 15:53] LABS: Color, Urine Yellow (Yellow); Glucose, Dipstick Normal (Normal); Ketone-Dipstick Negative (Negative); Leukocyte Esterase-Dipstick 500 /ul (Negative); Nitrite-Dipstick Negative (Negative); Occult Blood-Urine 10 /ul (Negative); Protein-Dipstick 15 mg/dl (Negative); Specific Gravity, Urine 1.010 (1.002-1.030); Urine Bilirubin Dipstick Negative (Negative)
[2025-04-09 16:10] LABS: Red Blood Cells-Urine 0-5 SEEN /hpf (0-5); Squamous Epithelial Cells - UA 5-10 SEEN /hpf (5-10)
== END | disposition home or self-care (01) ==
PROVIDERS: PCP Family Medicine; Referring Provider Family Medicine; Visit Provider Family Medicine
DX: T45.2X Poisoning by, adverse effect of and underdosing of vitamins (principal); I48.0 Paroxysmal atrial fibrillation; E67.3 Hypervitaminosis D; E83.40 Disorders of magnesium metabolism, unspecified; R79.89 Other specified abnormal findings of blood chemistry; R74.8 Abnormal levels of other serum enzymes; T45.8X Poisoning by, adverse effect of and underdosing of other primarily systemic and hematological agents; E78.5 Hyperlipidemia, unspecified; R73.02 Impaired glucose tolerance (oral)
CPT/HCPCS: 36415; 80053; 80061; 81001; 82306; 82607; 82746; 83036; 83735; 84443; 85025

== ENCOUNTER → 2025-04-24 | Outpatient (CLI) | payer MEDICARE, OTHER, SELFPAY ==
[2025-03-13 17:28] VITALS: BMI 53.1
== END | disposition home or self-care (01) ==
LOC: OPUS 07:41
PROVIDERS: PCP Family Medicine; Referring Provider Obstetrics & Gynecology; Visit Provider Obstetrics & Gynecology
DX: N81.3 Complete uterovaginal prolapse (principal)
CPT/HCPCS: 76830; 76856

== ENCOUNTER → 2025-05-12 | Outpatient (CLI) | payer MEDICARE, OTHER, SELFPAY ==
[2025-03-13 17:28] VITALS: BMI 53.1
== END | disposition home or self-care (01) ==
LOC: LABSPEC 05-13 14:30
PROVIDERS: PCP Family Medicine; Referring Provider Nurse Practitioner Women's Health; Visit Provider Nurse Practitioner Women's Health
DX: N85.01 Benign endometrial hyperplasia (principal)

== ENCOUNTER 2025-05-15 12:30 | Outpatient (RCR) | payer MEDICARE, OTHER, SELFPAY ==
[2025-03-13 17:28] VITALS: BMI 53.1
--- NOTE | 2025-05-11 21:23 | HP.PTEVAL_ITS ---
Patient's Visit Information Visit Information Visit Information: ELEN ARMAS is a 70 year old F referred to Physical Therapy by Dr. George Perez DPM with a diagnosis of LT LE WEAKNESS. Date of Evaluation: 04/08/25 Physical Therapist: Suki Jeff PT, Cert MDT Visit Plan Frequency: 2x /Week Duration: 4-6 Weeks Plan: CORE AND JENNIFER LE ROM, STRETCHING AND STRENGTHENING WITH FOCUS ON L POSTERIOR ANKLE STRENGTHENING AND ANTERIOR TIBIAL STRETCHING/RELEASE ALONG WITH BILATERAL GENTLE GREAT TOE FLEXIBILITY/MOBILIZATION. HEP INSTRUCTION. Subjective Subjective: THIS PATIENT PRESENTS TO PT DUE TO CALLUSES SHE HAS DEVELOPED ON THE L FOOT DUE TO COMPENSATING FOR R LE WEAKNESS. SHE HAD R TKR MAR 2024. SHE HAS BEEN WALKING ON THE OUTSIDE OF HER L FOOT AND HAS HAD TO HAVE MULTIPLE DEBRIDEMENTS OF THIS AREA THAT HAS BECOME QUITE PAINFUL (JASSO AND STINGS). SHE TRIED AN ORTHOTIC BEFORE HER KNEE SURGERY BUT NOT SINCE HER KNEE SURGERY. L FOOT SURGERY HAS BEEN DISCUSSED BUT PATIENT WOULD LIKE TO TRY TO AVOID THAT. PATIENT DENIES ANY FALLS. CURRENT SX'S: L FOOT PAIN, R LE WEAKNESS. 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 PAIN: L FOOT - OUTSIDE 0-8/10. ONSET: A COUPLE YEARS - STARTED HAVING L FOOT CALLUS BY LITTLE TOE SCAPED A COUPLE YEARS AGO WHILE DEALING WITH R KNEE PAIN AND WEAKNESS. PMH: H/O AFIB. 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 Pain Left Foot: Pain Intensity (Out of 10): 2 Pain Intensity Range: 0 and 8 Comment: (bunion) Objective Objective: THIS PATIENT AMBULATES INDEP'LY INTO PT WITH SLOW STEADY GAIT WITH SHORT JENNIFER STRIDE LENGTH ON BENT JENNIFER KNEES AND DECREASED JENNIFER HEEL STRIKE AND TOE OFF PHASES OF GAIT WITH JENNIFER PES CAVAS. NO LOB. SHE IS PLEASANT AND COOPERATIVE TO WORK WITH. ROM: L KNEE: 15-0-120 flexion. R KNEE: 8-0-105 flexion. JENNIFER ANKLE ROM GROSSLY 5-0-30 deg plantarflexion and 0-0-30 deg inversion. JENNIFER GREAT TOE STIFFNESS. LE STRENGTH: JENNIFER LE'S GROSSLY 5/5 WITH MMT'ING EXCEPT L PF 3-/5 IV 3+/5 EV 3+/5 CORE STRENGTH: FAIR PALPATION: TENDERNESS AT THE BASE OF THE L 5TH DIGIT IN THE REGION OF BUNION DEFORMITY AND CALLUS. TUG TEST: 16.54 SEC INDEP'LY WITHOUT AD. 30" STS TEST: 9 WITH INTERMITTENT HANDS ON KNEES. Balance/Special Test Scores Lower Extremity Functional Score: 51 Goals Goal 1:: INCREASE LLE FLEXIBILITY TO DECREASE STRESS ON L FOOT. Goal Time Frame: 4-6 Weeks Goal 2:: INCREASE LLE STRENGTH TO DECREASE STRESS ON L FOOT EVIDENCED BY IMPROVED 30" STS SCORE. Goal Time Frame: 4-6 Weeks Goal 3:: PATIENT WILL DEMONSTRATE IMPROVED CADANCE AND STRIDE WITH GAIT ALONG WITH DECREASED C/O PAIN AND INCREASED REPORT OF CONFIDENCE DEMO'D BY IMPROVED TUG TIME. Goal Time Frame: 4-6 Weeks Goal 4:: INDEP HEP. Goal Time Frame: 4-6 Weeks Rehabilitation Potential Physical Therapy Diagnosis: CORE AND L LE WEAKNESS ALONG WITH L FOOT AND ANKLE STIFFNESS LIMITING GAIT. PATIENT ALSO HAS JENNIFER KNEE LIMITED ROM AND HISTORY OF HIP PAIN AND STIFFNESS WHICH ARE CONTRIBUTING FACTORS. Rehabilitation Potential: Fair Anticipated Interventions Patient/Client Instruction: Educate patient on: Condition, Plan of Care and Risk Factors For the Purpose of:: To improve self management Therapeutic Exercise to Include: Strength training, Flexibilty training, Gait and locomotor training and Neuromotor development For the Purpose of:: To decrease pain, To increase ROM, To improve muscle performance and motor function, To increase tolerance to activity/condition/position, To improve ability of physical actions for home/community/work/leisure, To improve gait and locomotor functions, To decrease soft tissue restriction, To increase flexibility/ROM, To improve balance and To improve self management Manual Therapy Techniques to Include: Passive ROM and Soft tissue mobilization For the Purpose of:: To decrease pain, To increase ROM, To decrease soft tissue restriction and To increase flexibility/ROM Text: Thank you for the opportunity to evaluate your patient. For Medicare and Medicare HMO plans, please review the plan of care and approve it. It will need to be FAXED BACK to us at [phone] for Medicare purposes. For Medicare only, by signing this I certify the plan of care. Please let me know if there are questions or concerns regarding this plan of care. Physician Signature: Date:
--- NOTE | 2025-05-13 | EMB_PTH ---
PATIENT: ELEN ARMAS LOC: PT U#:[id number] AGE/SX: 70/F ROOM: RE05/15/[address]: Dr. George Perez DPM : 1955 BED: DIS: 05/15/2025 SPEC #: [id number] RECD: 05/13/25 14:24 STATUS: ELSIE JACKELINE #: [id number] RELL: 05/13/25 00:[address]: Kiana Pavon NP DEPT: SURGICAL PATHOLOGY RECD BY: Chucho Scott ENTERED: 05/13/25 15:15 SP TYPE: ENDOM BX/C DENYS DR: MD Dr. George Carter DPM Tissues: A - Endometrium, NOS Procedures: Surgery Specimen Level IV HEADER OPERATION: Endometrial biopsy PRE-OP DIAGNOSIS: Thickened endometrium TISSUE SUBMITTED: A- Endometrial tissue MICROSCOPIC DIAGNOSIS A. Endometrium, biopsy: - Scant superficial epithelium with mild cytologic atypia - see note. Note: A very limited amount of tissue is present for evaluation. The tissue may be of endometrial and/or cervical origin. The pre-op diagnosis of "thickened endometrium" is noted. Clinical correlation is necessary to assess the adequacy of the sampling. MICROSCOPIC DESCRIPTION Slides are reviewed. GROSS DESCRIPTION A. Received in formalin labeled the patient's name and date of are minute flecks of free-floating tissue, all <0.1 cm. Entirely submitted in 1 cassette. The entirety of the specimen is unlikely to survive processing. NM 05/13/2025 CPT:14974
--- NOTE | 2025-05-15 13:06 | HP.PTDCSUM ---
Discharge Summary D/C summary: It has been my pleasure to treat ELEN ARMAS referred by Dr. George Perez DPM, with the diagnosis of LT LE WEAKNESS for a total of 9 visit(s). Discharge Date: 05/15/25 Please see the following information for a summary of their discharge status. Subjective Subjective: PATIENT REPORTS HER BALANCE IS BETTER AND HER STRENGTH IS BETTER BUT HER BUNION STILL HURTS. SHE STATES SHE THINKS WHAT WE HAVE WORKED ON IN THERAPY HAS BEEN GOOD. "I FEEL STRONGER IN THAT FOOT, MY GAIT IS BETTER AND MY BALANCE IS GETTING BETTER". SHE STATES "I FEEL LIKE I AM STANDING UP STRAIGHTER, I AM WALKING FASTER AND I AM MORE CONFIDENT IN MY GAIT". Pain Left Foot: Pain Intensity (Out of 10): 3 Overall Improvement % Improvement: 85 Objective Objective/Function: PATIENT WAS SEEN TODAY FOR RE-ASSESSMENT OF PROGRESS TOWARD THE SET PT GOALS AND THE NEED FOR FURTHER PHYSICAL THERAPY VS READINESS FOR DISCHARGE. THIS PATIENT HAS IMPROVED NICELY WITH PT BUT STILL HAS BUNION PAIN. ALL PT GOALS HAVE BEEN MET. SHE IS APPROPRIATE FOR AND AGREEABLE TO DISCHARGE. UPON EXAM TODAY: LE STRENGTH: JENNIFER LE'S GROSSLY 5/5. CORE STRENGTH: FAIR PALPATION: TENDERNESS AT THE BASE OF THE L 5TH DIGIT IN THE REGION OF BUNION DEFORMITY AND CALLUS. TUG TEST: 10.45 SEC INDEP'LY WITHOUT AD. 30" STS TEST: 13 WITHOUT UE ASSIST. Goals Goal 1:: INCREASE LLE FLEXIBILITY TO DECREASE STRESS ON L FOOT. Goal Progress: Goal Met Goal 2:: INCREASE LLE STRENGTH TO DECREASE STRESS ON L FOOT EVIDENCED BY IMPROVED 30" STS SCORE. Goal Progress: Goal Met Goal 3:: PATIENT WILL DEMONSTRATE IMPROVED CADANCE AND STRIDE WITH GAIT ALONG WITH DECREASED C/O PAIN AND INCREASED REPORT OF CONFIDENCE DEMO'D BY IMPROVED TUG TIME. Goal Progress: Goal Met Goal 4:: INDEP HEP. Goal Progress: Goal Met Plan Plan: D/C TO HEP. PATIENT AGREEABLE. D/C Information d/c sentence: If there are questions or concerns regarding this patient's physical therapy, please feel free to call me at [phone]. Thank you for the referral of this patient. Sincerely, Suki Jeff, PT, Cert MDT Balance/Gait/Functional tests Balance/Special Test Scores Lower Extremity Functional Score: 53 Improvement % Improvement: 85
== END 2025-05-15 19:00 | disposition home or self-care (01) ==
LOC: PT 12:30
PROVIDERS: PCP Family Medicine; Referring Provider Student in an Organized Health Care Education/Training Program; Visit Provider Student in an Organized Health Care Education/Training Program
DX: R29.898 Other symptoms and signs involving the musculoskeletal system (principal)
CPT/HCPCS: 88305; 97110; 97140; 97162; 97530

== ENCOUNTER 2025-05-30 15:35 | Observation (INO) | payer MEDICARE, OTHER, SELFPAY ==
[2025-03-13 17:28] VITALS: BMI 53.1
--- NOTE | 2025-05-22 15:03 | PAT.ANESEVAL ---
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 When Was Last Pacemaker Check QUESTION #4 FULL TEXT: You/Your Family Experience fever (hyperthermia) with Anesthesia Last Oral Intake Last Oral intake: Last Oral Intake NPO since Meds taken in AM with sips of water? Meds patient instructed to take am of surgery PONV PONV - trade sales assistant: PONV - trade sales assistant Female Yes 05/22/25 14:31 HX of Motion Sickness No 05/22/25 14:31 HX of N/V After Surgery No 05/22/25 14:31 Non-Smoker Yes 05/22/25 14:31 Duration of Surgery greater Yes 05/22/25 14:31 than 60 minutes Number of Risk Factors 3 05/22/25 14:31 PONV Score Moderate Risk 05/22/25 14:31 Height & Weight Height & Weight: Anesthesia: Height & Weight Height 5 ft 5 in 05/19/25 13:52 Respiratory Assessment Respiratory Assessment - trade sales assistant: Respiratory Tract Infection Hx - trade sales assistant Hx Respiratory Tract Infection No 05/22/25 14:31 STOP Sleep Apnea STOP Sleep Apnea - trade sales assistant: STOP Sleep Apnea - trade sales assistant Hx Hypertension No 05/22/25 14:31 Hx Sleep Apnea Yes 05/22/25 14:31 CPAP No 05/22/25 14:31 BIPAP Yes 05/22/25 14:31 Do you snore loudly (louder than talking or can be heard Do you often feel tired/ fatigued/ sleepy during daytime? Has anyone observed you stop breathing during sleep? STOP Results Positive 05/22/25 14:31 QUESTION #5 FULL TEXT : Do you snore loudly (louder than talking or can be heard through closed doors)? Tobacco Use History Tobacco Use History - trade sales assistant: Tobacco Use History - trade sales assistant Tobacco Use Smoking Status Never smoker 05/22/25 14:31 Hx Tobacco Use No 05/22/25 14:31 Years Smoking Packs Smoked per Day Smoking Cessation Date was within the last 15 years Hx Smoking Cessation Date Hx Smoking Cessation Counseling Hematologic Medial History Hematologic Hx - trade sales assistant: Hematologic Medical Hx - marketing communications specialist Hx of Blood Transfusion No 05/22/25 14:31 Hx of Transfusion in last 3 No 05/22/25 14:31 Months Date of Last Transfusion (if within last 3 months) Ever experience any problems No 05/22/25 14:31 with transfusion(s)? Specify any problems Hx of Preganancy in last 3 No 05/22/25 14:31 Months Nurse Filling Out Transfusion DSCHRIBER 05/22/25 14:31 & Questions: Date: 05/22/25 05/22/25 14:31 Time: 14:33 05/22/25 14:31 Patient unable to answer at this time (ie. confused, unrespo /Reproduction History /Reproductive History - trade sales assistant: /Reproductive Hx- trade sales assistant Hx Now No 05/22/25 14:31 Gestational Age (in weeks): EDC: Hx Hx Para Hx Section SAB No 05/22/25 14:31 Does the father of the baby or his family experience fever w Father of the baby Malignant Hypertension history comment [facility] Medical History (Updated 05/22/25 @ 14:39 by Stacey Leyva) Urinary tract infection Uterovaginal prolapse, complete Incomplete bladder emptying Nocturia Vaginal atrophy Uterovaginal prolapse, incomplete Sludge in gallbladder Loss of hearing Arthritis Anemia Back pain Leg cramps History of edema History of pain when walking History of CHF (congestive heart failure) History of heart attack Wears glasses Post-menopausal Fibromyalgia Ambulates with cane High cholesterol Restless legs Non-smoker BiPAP (biphasic positive airway pressure) dependence History of Holter monitoring (~03/29/21) History of echocardiogram (~08/05/22) History of stress test (~12/10/20) Cardiology follow-up encounter (~11/15/22) History of cardioversion (~2022) Knee pain Hay fever Atrial fibrillation with rapid ventricular response Obesity GERD (gastroesophageal reflux disease) (12/28/20) Essential (primary) hypertension Hyperlipidemia Paroxysmal atrial fibrillation (10/2019) Home Medications ?Medication ?Instructions ?Recorded ?Last Taken ?Type multivitamin 1 tab PO DAILY vitamin 11/30/20 04/02/24 History ropinirole 1 mg tablet 3 mg PO QHS restless legs 11/30/20 04/07/24 History apixaban 5 mg tablet 5 mg PO BID blood thinner 12/02/20 04/05/24 20:20 History cetirizine 10 mg capsule (Zyrtec) 10 mg PO DAILY PRN Allergy Symptoms 09/27/21 Unknown History rosuvastatin 40 mg tablet 40 mg PO QHS CHOLESTEROL 12/27/22 04/07/24 History mecobalamin (vitamin B12) 5,000 5,000 mcg PO DAILY SUPPLEMENT 09/19/23 04/02/24 History mcg disintegrating tablet calcium citrate 500 mg PO TID SUPPLEMENT 01/09/24 04/02/24 History cholecalciferol (vitamin D3) 125 125 mcg PO DAILY SUPPLEMENT 01/09/24 04/02/24 History mcg (5,000 unit) tablet omeprazole 20 mg capsule,delayed 20 mg PO DAILY GERD 01/09/24 04/08/24 History release epinephrine 0.3 mg/0.3 mL 0.3 mg (0.3 mL) IM Q15M PRN 09/05/24 Unknown Rx injection, auto-injector (EpiPen anaphylaxis #2 ea 2-Neri) furosemide 40 mg tablet 40 mg PO QDAY diuectic #180 tabs 02/11/25 Unknown Rx estradiol 0.01% (0.1 mg/gram) 1 g vaginal 3XW 3 months #42.5 03/11/25 Unknown Rx vaginal cream grams sotalol 80 mg tablet 80 mg PO BID HEART RATE 30 days 03/26/25 Unknown Rx #180 tabs metformin 500 mg tablet 500 mg PO TID 04/09/25 Unknown History Allergy/AdvReac Type Severity Reaction Status Date / Time BLU Inhibitors Allergy Severe ANGIOEDEMA, Verified 05/22/25 14:27 hives and itching Penicillins Allergy Rash Verified 05/22/25 14:27 metoprolol AdvReac itching, Verified 05/22/25 14:27 fatigue, sob, leg edema Family History (Reviewed 05/22/25 @ 12:54 by Nan Caputo CUSTOMER PRICING MANAGER, CUSTOMER PRICING MANAGER-C) Mother Thyroid disorder Cancer Father Cancer Brother Diabetes Hypertension Heart disease Surgical History (Updated 05/22/25 @ 14:39 by Stacey Leyva) Hx of total knee arthroplasty Hx of colonoscopy S/P gastric sleeve procedure History of ovarian cystectomy (~1970) History of left heart catheterization (12/28/20) History of tonsillectomy and adenoidectomy (~1963) Social History adopted: No household members: spouse housing: house number of children: 2 current occupational status: retired current occupation: retired current occupational exposures/hazards: No pets and animals: Yes leisure activities: exercise and reading history of recent travel: No sexually active: Yes Smoking Status: Never smoker second hand exposure: No alcohol intake: former substance use type: does not use diet: other well-balanced diet: daily or most days caffeine: No eating out: rarely or never during the past year weight has: decreased > 10 lbs what type of physical activity do you participate in: swimming frequency: 3-4 times per week duration: 45-60 minutes/day henry/shinto: nondenominational seatbelt use: always do you feel safe at home: Yes additional social history: - Jose Luis- Retired Audit: Pertinent Findings HISTORY of Pertinent Findings History of Pertinent Findings: 04/2025: 70-year-old lady with a history of hypertension, hyperlipidemia, obesity, obstructive sleep apnea, thyroid disease who had presented with palpitations which started in mid September 2020 and was noted to have atrial fibrillation. She was started on beta-himanshu as well as Eliquis. An event monitor was placed which did demonstrate evidence of atrial fibrillation which was paroxysmal. She has been using a BiPAP mask. She did have an echocardiogram performed in December 2018 which demonstrated evidence of mild left atrial enlargement, stage I diastolic dysfunction, and an estimated EF of 65%. Cardiac catheterization in December 2020 demonstrated essentially normal coronary arteries and preserved left ventricular systolic function. She was seen in the emergency department on 08/04/2022 for shortness of breath. She woke up and noted an elevated heart rate into the 120s. She took extra metoprolol. Her symptoms continued in conjunction to shortness of breath. Her EKG showed atrial flutter at a rate of [address] changes. Her BNP was elevated at 546. Her high sensitive troponin was noted to be 1130. Her non-STEMI was thought to be related to atrial flutter with elevated rate. She proceeded with cardioversion. She was discharged on sotalol and Eliquis therapy at that time. She denies chest, arm, jaw, or neck discomfort. She denies any prolonged palpitations. She states bilateral lower extremity edema. Pertinent Findings EKG Perinent findings: 12 Lead EC05/05/2025-sinus bradycardia first AV block at 48 bpm Stress test pertinent findings: Stress test on 12/10/2020: Conclusion: Pharmacologic myocardial perfusion stress test with evidence of anterior ischemia. Preserved ejection fraction Echo (EF%) pertinent findings: Echo Complete 03/06/2025 Interpretation Summary Normal LV size. Left ventricular systolic function is normal. The left ventricular ejection fraction is 65 %. Mild (1+) eccentric mitral valve insufficiency. Mild tricuspid valve insufficiency. Heart catheterization pertinent findings: Heart catheterization from 12/28/2020: CONCLUSIONS Non obstructive coronary arteries CORONARY ANGIOGRAPHY DOMINANCE: Right Dominant LEFT HEART ASSESSMENT Left Ventricular Ejection Fraction: by LV Gram 60 % Normal LV wall motion Normal Left Ventricular systolic function LEFT MAIN: Angiographically normal LEFT ANTERIOR DESCENDING ARTERY: No significant disease noted CIRCUMFLEX ARTERY: No significant disease noted RIGHT CORONARY ARTERY: Mild luminal irregularities Additional pertinent findings: Holter monitor from 01/11/2024: Normal sinus rhythm with PACs noted Minimum heart rate of 43 bpm. Average heart rate 59 bpm. Maximum heart rate 101 bpm. Ventricular ectopy 0.0%. Supraventricular ectopy 0.1%. Longest R to R interval 1.7 seconds. No atrial fibrillation noted. No ventricular tachycardia noted. The patient kept a diary with no symptoms noted. Recommendation Anesthesia Recommendation Anesthesia recommendation: OPTIMIZED for anesthesia
[2025-05-23 12:18] LABS: Hematocrit 39.1 % (37-47); Hemoglobin 12.8 g/dL (12.0-15.0); Immature Granulocytes Count 0.020 X10^3/uL (0.0-0.0); Mean Corp Hgb Conc 32.7 g/dL (32-36); Mean Corpuscular Volume 89.5 fL (81-99); Mean Platelet Vol. 12.2 fl (6.2-12.0); NRBC Flagged by Analyzer 0 % (0-5); Platelet Count 242 K/mm3 (150-450); RBC Distribution Width CV 12.2 % (11.6-14.6); RBC Distribution Width SD 39.9 fl (35.1-43.9); Red Blood Count 4.37 M/mm3 (4.2-5.4); White Blood Count 7.3 K/mm3 (4.4-11.0)
[2025-05-23 12:58] LABS: AST(SGOT) 28 U/L (<=31); Alanine Aminotransfer ALT/SGPT 18 U/L (<=34); Albumin, Serum 4.2 g/dL (3.4-4.8); Alkaline Phosphatase 89 U/L (35-104); Anion Gap 8 (5-15); BUN 28 mg/dL (4-19); BUN/Creat Ratio 32.1 RATIO (10-20); Calcium,Total 9.9 mg/dL (7.6-11.0); Carbon Dioxide 26.3 mmol/L (21.0-32.0); Chloride 100 mmol/L (98-108); Globulin 3.0 g/dL (2.2-4.2); Glucose 79 mg/dL (70-99); Potassium 4.0 mmol/L (3.3-5.1)
[2025-05-30] VITALS (19 sets, daily range): BP systolic 108–138; BP diastolic 40–75; PULSE 40–58; RESP 14–16; TEMP 36.3–36.8; O2SAT 91–100; BMI 39.6
--- NOTE | 2025-05-30 11:00 | PCM.HP.BLA ---
History and Physical Date of Admission: 05/30/25 Date of Service: 05/23/25 MR#: [id number] Acct: [id number] Name: ELEN ARMAS Rep #: [id number] : 1955 Provider: Dr. 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 Required: No Accompanied by: Self Is patient in pain?: No Allergies BLU Inhibitors Allergy (Severe, Verified 05/23/25 08:50) ANGIOEDEMA, hives and itching Penicillins Allergy (Verified 05/23/25 08:50) Rash metoprolol Adverse Reaction (Verified 05/23/25 08:50) itching, fatigue, sob, leg edema Medications ?Medication ?Instructions ?Recorded ?Confirmed ?Type multivitamin 1 tab PO DAILY vitamin 11/30/20 05/23/25 History ropinirole 1 mg tablet 3 mg PO QHS restless legs 11/30/20 05/23/25 History apixaban 5 mg tablet 5 mg PO BID blood thinner 12/02/20 05/23/25 History cetirizine 10 mg capsule (Zyrtec) 10 mg PO DAILY PRN Allergy Symptoms 09/27/21 05/23/25 History rosuvastatin 40 mg tablet 40 mg PO QHS CHOLESTEROL 12/27/22 05/23/25 History mecobalamin (vitamin B12) 5,000 5,000 mcg PO DAILY SUPPLEMENT 09/19/23 05/23/25 History mcg disintegrating tablet calcium citrate 500 mg PO TID SUPPLEMENT 01/09/24 05/23/25 History cholecalciferol (vitamin D3) 125 125 mcg PO DAILY SUPPLEMENT 01/09/24 05/23/25 History mcg (5,000 unit) tablet omeprazole 20 mg capsule,delayed 20 mg PO DAILY GERD 01/09/24 05/23/25 History release epinephrine 0.3 mg/0.3 mL 0.3 mg (0.3 mL) IM Q15M PRN 09/05/24 05/23/25 Rx injection, auto-injector (EpiPen anaphylaxis #2 ea 2-Neri) furosemide 40 mg tablet 40 mg PO QDAY diuectic #180 tabs 02/11/25 05/23/25 Rx estradiol 0.01% (0.1 mg/gram) 1 g vaginal 3XW 3 months #42.5 03/11/25 05/23/25 Rx vaginal cream grams sotalol 80 mg tablet 80 mg PO BID HEART RATE 30 days 03/26/25 05/23/25 Rx #180 tabs metformin 500 mg tablet 500 mg PO TID 04/09/25 05/23/25 History Have you fallen in the past year?: No Nurse's Note: denies sx of infection today. [facility] Medical History Urinary tract infection Uterovaginal prolapse, complete Incomplete bladder emptying Nocturia Vaginal atrophy Uterovaginal prolapse, incomplete Sludge in gallbladder Loss of hearing Arthritis Anemia Back pain Leg cramps History of edema History of pain when walking History of CHF (congestive heart failure) History of heart attack Wears glasses Post-menopausal Fibromyalgia Ambulates with cane High cholesterol Restless legs Non-smoker BiPAP (biphasic positive airway pressure) dependence History of Holter monitoring (~03/29/21) History of echocardiogram (~08/05/22) History of stress test (~12/10/20) Cardiology follow-up encounter (~11/15/22) History of cardioversion (~2022) Knee pain Hay fever Atrial fibrillation with rapid ventricular response Obesity GERD (gastroesophageal reflux disease) (12/28/20) Essential (primary) hypertension Hyperlipidemia Paroxysmal atrial fibrillation (10/2019) Surgical History Hx of total knee arthroplasty Hx of colonoscopy S/P gastric sleeve procedure History of ovarian cystectomy (~1970) History of left heart catheterization (12/28/20) History of tonsillectomy and adenoidectomy (~1963) Family History Mother Thyroid disorder Cancer Father Cancer Brother Diabetes Hypertension Heart disease Social History adopted: No household members: spouse housing: house number of children: 2 current occupational status: retired current occupation: retired current occupational exposures/hazards: No pets and animals: Yes leisure activities: exercise and reading history of recent travel: No sexually active: Yes Smoking Status: Never smoker second hand exposure: No alcohol intake: former substance use type: does not use diet: other well-balanced diet: daily or most days caffeine: No eating out: rarely or never during the past year weight has: decreased > 10 lbs what type of physical activity do you participate in: swimming frequency: 3-4 times per week duration: 45-60 minutes/day henry/restorationist: jainism seatbelt use: always do you feel safe at home: Yes additional social history: - Jose Luis- Retired HPI HPI Urology Chief Complaint: preop H&P visit with urine and consent Details: ELEN ARMAS, is a 70 F. The patient is here for preoperative history and physical prior to anterior and posterior repair, possible bilateral sacrospinous ligament fixation with dermis, midurethral sling, cystoscopy with bilateral ureteral catheterization. There are no new symptoms since the last visit. She is pleased that the new CPAP mask is fitting well and working out. The procedure, recovery and expectations were explained. The risks, benefits and alternatives were discussed, including but not limited to, the risks of anesthesia, bleeding, infection, injury, pain and the need for further intervention. We discussed details of the preoperative procedure, overnight stay and expectations for recovery including postoperative and usp limitations. She understands and questions were answered. ROS Const Constitutional: No chills, fatigue, fever(s), headache(s), night sweats, weakness, weight change, abnormal sleep pattern or change in appetite Eyes Eyes: No change in vision ENT ENT: No headache(s) or dry mouth Resp Respiratory: No cough, chest congestion, shortness of breath or wheezing Cardio Cardiology: Positive for other (No chest pain.); No shortness of breath, irregular heart rhythm or lightheadedness Gastro GI: Positive for other (No nausea.); No abdominal pain, change in bowel habits, constipation, diarrhea or vomiting Musc Musculoskeletal: No abnormal gait Skin Skin: No yellowing of the eye, lesions, itchy eyes, rash or skin ulcer Neuro Neurology: No abnormal gait, confusion, dizziness, weakness, headache(s) or memory loss Psych Psychiatric: No abnormal sleep pattern, No change in appetite, No confusion and No memory loss Endo Endocrine: No fatigue, increased thirst/drinking or weight change Aller/Imm Allergy/Immunologic: No itchy eyes or wheezing Walker/Lymp Hematologic/Lymphatic: No easy bleeding, easy bruising or enlarged lymph nodes Exam Const General: cooperative, healthy appearing, comfortable and no acute distress [facility] Head: normocephalic and atraumatic Ears: hearing grossly normal bilaterally and external ears normal Nose: external nose normal Eyes General: appearance normal, both eyes and all related structures Neck Neck: normal visual inspection and trachea midline Chest Chest palpation & inspection: normal inspection of the chest Resp Effort & Inspection: normal respiratory effort, able to speak in complete sentences and symmetric chest movement Cardio Rate: regular rate GI Inspection: normal to inspection Palpation: soft and nontender Skin General: no rashes or lesions noted Neuro General: patient alert, patient awake, patient oriented x3 and CN's II-XI intact bilaterally Extrem General: normal to inspection Psych Appearance: grossly normal and well kempt Mental Status: mental status grossly normal Results POC Urinalysis w/Micro Office Urine Color ? Last Edit by Michelle Vallejo on 05/23/25 09:02 Office Urine Clarity ? Last Edit by Michelle Vallejo on 05/23/25 09:02 Office Urine Glucose Negative Last Edit by Michelle Vallejo on 05/23/25 09:02 Office Urine Ketones Negative Last Edit by Michelle Vallejo on 05/23/25 09:02 Office Urine Bilirubin Negative Last Edit by Michelle Vallejo on 05/23/25 09:02 Office Urine Urobilinogen 0.2 mg/dL Last Edit by Michelle Vallejo on 05/23/25 09:02 Off Ur Spec [place] 1.020 Last Edit by Michelle Vallejo on 05/23/25 09:02 Office Urine pH 6 Last Edit by Michelle Vallejo on 05/23/25 09:02 Office Urine Protein 1+ Last Edit by Michelle Vallejo on 05/23/25 09:02 Office Urine Blood Large Last Edit by Michelle Vallejo on 05/23/25 09:02 Office Urine Blood Hemolyzed Negative Last Edit by Michelle Vallejo on 05/23/25 09:02 Office Urine Nitrate Negative Last Edit by Michelle Vallejo on 05/23/25 09:02 Off Ur Leukocytes Positive Last Edit by Michelle Vallejo on 05/23/25 09:02 Off Ur WBC Microscopic ? Last Edit by Michelle Vallejo on 05/23/25 09:02 Off Ur RBC Microscopic ? Last Edit by Michelle Vallejo on 05/23/25 09:02 Off Ur Bacteria Microscopic ? Last Edit by Michelle Vallejo on 05/23/25 09:02 leuks 500 Coding Level of Care Code Off vis,est,level 4 Diagnoses Uterovaginal prolapse, complete N81.3 Nocturia R35.1 Incomplete bladder emptying R33.9 Vaginal atrophy N95.2 Urinary tract infection N39.0 Assessment and Plan Assessment and Plan (1) Uterovaginal prolapse, complete: Status: Acute (2) Nocturia: Status: Acute (3) Incomplete bladder emptying: Status: Acute (4) Vaginal atrophy: Status: Acute (5) Urinary tract infection: Status: Acute Orders: Orders POC UA Automated w/Microscopy 05/23/25 R30.0 - Dysuria Plan continue estrogen cream urine culture proceed with surgical intervention as scheduled cardiac and pulmonary optimization completed holding of Eliquis 2 days recovery and postoperative expectations were discussed Clinical Quality Measures Falls Risk Screening/Assistive Devices Have you fallen in the past year?: No 05/26/25 2258 <Electronically signed by Nevin Martell MD> Date Nevin Martell MD
--- NOTE | 2025-05-30 11:04 | PCM.HP.BLA ---
History and Physical Date of Admission: 05/30/25 Intake Vital Signs 03/11/2507:52 05/13/2513:08 05/19/2513:52 Height 5 ft 5 in 5 ft 5 in 5 ft 5 in Weight: 246 lb BMI 40.9 BP 145/91 H Intake Visit Reasons: HYSTO preop Claudiakeaton elizabeth Chief Complaint: Hysto Automatic Lathe Operator Required: No Is patient in pain?: No Allergies BLU Inhibitors Allergy (Severe, Verified 05/19/25 13:51) ANGIOEDEMA, hives and itching Penicillins Allergy (Verified 05/19/25 13:51) Rash metoprolol Adverse Reaction (Verified 05/19/25 13:51) itching, fatigue, sob, leg edema Medications ?Medication ?Instructions ?Recorded ?Confirmed ?Type multivitamin 1 tab PO DAILY vitamin 11/30/20 05/19/25 History ropinirole 1 mg tablet 3 mg PO QHS restless legs 11/30/20 05/19/25 History apixaban 5 mg tablet 5 mg PO BID blood thinner 12/02/20 05/19/25 History cetirizine 10 mg capsule (Zyrtec) 10 mg PO DAILY PRN Allergy Symptoms 09/27/21 05/19/25 History rosuvastatin 40 mg tablet 40 mg PO QHS CHOLESTEROL 12/27/22 05/19/25 History mecobalamin (vitamin B12) 5,000 5,000 mcg PO DAILY SUPPLEMENT 09/19/23 05/19/25 History mcg disintegrating tablet calcium citrate 500 mg PO TID SUPPLEMENT 01/09/24 05/19/25 History cholecalciferol (vitamin D3) 125 125 mcg PO DAILY SUPPLEMENT 01/09/24 05/19/25 History mcg (5,000 unit) tablet omeprazole 20 mg capsule,delayed 20 mg PO DAILY GERD 01/09/24 05/19/25 History release epinephrine 0.3 mg/0.3 mL 0.3 mg (0.3 mL) IM Q15M PRN 09/05/24 05/19/25 Rx injection, auto-injector (EpiPen anaphylaxis #2 ea 2-Neri) prednisone 20 mg tablet 20 mg PO DAILY PRN 10/22/24 05/19/25 History furosemide 40 mg tablet 40 mg PO QDAY diuectic #180 tabs 02/11/25 05/19/25 Rx estradiol 0.01% (0.1 mg/gram) 1 g vaginal 3XW 3 months #42.5 03/11/25 05/19/25 Rx vaginal cream grams sotalol 80 mg tablet 80 mg PO BID BP 30 days #180 tabs 03/26/25 05/19/25 Rx metformin 500 mg tablet 500 mg PO TID 04/09/25 05/19/25 History Is last menstrual period known: No Post menopausal: Yes Patient : No : No PFSH Medical History Urinary tract infection Uterovaginal prolapse, complete Incomplete bladder emptying Nocturia Vaginal atrophy Uterovaginal prolapse, incomplete Sludge in gallbladder Loss of hearing Arthritis Anemia Back pain Dietary restriction Leg cramps History of edema History of pain when walking History of CHF (congestive heart failure) History of heart attack Wears glasses Post-menopausal Fibromyalgia Ambulates with cane Osteoarthritis High cholesterol Restless legs Non-smoker BiPAP (biphasic positive airway pressure) dependence History of Holter monitoring (~03/29/21) History of echocardiogram (~08/05/22) History of stress test (~12/10/20) Cardiology follow-up encounter (~11/15/22) History of cardioversion (~2022) Knee pain Hay fever Atrial fibrillation with rapid ventricular response Obstructive sleep apnea Obesity GERD (gastroesophageal reflux disease) (12/28/20) Essential (primary) hypertension Hyperlipidemia Paroxysmal atrial fibrillation (10/2019) Surgical History H/O right knee surgery Hx of colonoscopy S/P gastric sleeve procedure History of ovarian cystectomy (~1970) History of left heart catheterization (12/28/20) History of tonsillectomy and adenoidectomy (~1963) Family History Mother Thyroid disorder Cancer Father Cancer Brother Diabetes Hypertension Heart disease Social History adopted: No household members: spouse housing: house number of children: 2 current occupational status: retired current occupation: retired current occupational exposures/hazards: No pets and animals: Yes leisure activities: exercise and reading history of recent travel: No sexually active: Yes Smoking Status: Never smoker second hand exposure: No alcohol intake: former substance use type: does not use diet: other well-balanced diet: daily or most days caffeine: No eating out: rarely or never during the past year weight has: decreased > 10 lbs what type of physical activity do you participate in: swimming frequency: 3-4 times per week duration: 45-60 minutes/day henry/anglican: taoism seatbelt use: always do you feel safe at home: Yes additional social history: - Jose Luis- Retired HPI DHAVAL johnson Details: The patient is a 70-year-old female with a history of sleep apnea and atrial fibrillation presenting for a pre-operative visit for a scheduled total vaginal hysterectomy, possible bilateral salpingo-oophorectomy, and cystoscopy for grade 4 prolapse. Pre-Operative Concerns: - Awaiting pulmonary clearance for surgery due to sleep apnea. - Reports issues with BiPAP mask seal causing leaks and too many events during sleep. - Uses Rx[employer] carla to monitor sleep events. - Scheduled to see irrigation worker on the for re-titration of BiPAP settings. - Cardiology clearance already obtained. - Currently on Eliquis, instructed to hold 2 days prior to surgery and resume as soon as possible post-operatively as approved by the surgeon. Post-Operative Concerns: - Inquires about post-operative care, including use of a heating pad and need for mini pads for spotting. - Asks about restrictions on lifting and abdominal twisting/turning post-surgery. - Mentions having all her grandchildren's birthday presents wrapped and Du shopping done in advance to avoid post-operative activities. Past Diagnostic Results: - Biopsy: Scant superficial epithelium, mild cytologic atypia, very limited amount of tissue present for evaluation, tissue may be of endometrial or cervical region, pre-op diagnosis of thickened endometrium noted. Uterus: 7.7 cm x 4.5 cm x 3.6 with a volume of 64.2 mL Endometrial Thickness: 7 mm Right Ovary: Not visualized Left Ovary: Not visualized History Past Pregnancies Del. Date Name GA/Weeks Outcome Route Bth Weight Gen Labor Lgth Anesthesia Del Locatn Provider FOB Unknown Dalia Unknown Freddie ROS Const ROS Unobtainable: All systems reviewed & are unremarkable except as noted in H Resp Resp: Reports system reviewed and no additional complaints, except as documented; Denies cough GI GI: Reports as per HPI Psych Psych: Reports system reviewed and no additional complaints, except as documented Exam Const General: cooperative, healthy appearing, comfortable and no acute distress Resp Effort & Inspection: normal respiratory effort Skin General: no rashes or lesions noted Psych Appearance: grossly normal Speech and Movement: speech and movement normal Coding Level of Care Code Off vis,est,level 4 Diagnoses Thickened endometrium R93.89 Uterovaginal prolapse, complete N81.3 Assessment and Plan Assessment and Plan (1) Thickened endometrium: Status: Acute Comment: 7mm. EMB pending (2) Uterovaginal prolapse, complete: Status: Acute Orders: Orders Type & Screen - PAT ONLY Today Z01.818 - Encounter for other preprocedural examination Comprehensive Metabolic Profil Today Z818 - Encounter for other preprocedural examination CBC W/Diff, Automated Today Z818 - Encounter for other preprocedural examination Plan # Encounter for other preprocedural examination (Z.818) - Pending pulmonary risk assessment on May 22 due to ongoing KISHOR events and possible need for BiPAP re-titration; surgery may be postponed if not cleared. - Reviewed pathology report from Dr. Marce Bonilla: scant superficial epithelium with mild cytologic atypia, no evidence of malignancy. - Total vaginal hysterectomy, possible bilateral salpingo-oophorectomy, and cystoscopy planned; Dr. Yeboah to assist with vaginal tissue repair. - Discussed surgical risks (bleeding, infection, damage to surrounding tissue) and rationale for possible intraoperative changes. - Instructed on preoperative chlorhexidine wash (night before and morning of surgery) and ERAS protocol, including carbohydrate-electrolyte drinks. - Advised on expected postoperative course: light vaginal spotting/discharge for up to 6 weeks, no heavy bleeding expected; instructed to call if bleeding resembles a period. - Reviewed need for pelvic rest and avoidance of heavy lifting or activities that increase intra-abdominal pressure to protect surgical repairs. - Preoperative labs (magnesium, CMP, CBC, type and screen) to be completed after pulmonary risk assessment on May 22. - Instructed to hold Eliquis 2 days prior to surgery and resume postoperatively as soon as approved by surgeon. - Follow-up with Dr. Yeboah on Monday after pulmonary risk assessment; post-op visits scheduled at 2 and 6 weeks. 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 # Obstructive sleep apnea (adult) (pediatric) (G47.33) - Ongoing KISHOR events noted on [employer] carla; pulmonary risk assessment scheduled for May 22 to determine if BiPAP re-titration is needed prior to surgery. Treatment: - Hold Eliquis 2 days prior to surgery and resume post-operatively as soon as approved by the surgeon. - Delay pre-op blood work (magnesium level, CMP, CBC, type and screen) until after pulmonology appointment on the to determine if surgery will proceed. - Discussed potential for surgery to be canceled or delayed based on pulmonology clearance; if canceled, rescheduling will depend on clearance from pulmonology and availability of surgical team. - Discussed surgical procedure details, including total vaginal hysterectomy, possible bilateral salpingo-oophorectomy, and cystoscopy. - Discussed risks of surgery, including bleeding, infection, and damage to surrounding tissue. - Discussed post-operative care, including the use of chlorhexidine body wash the night before and the morning of surgery to reduce infection risk. - Discussed post-operative recovery, including potential for light spotting for up to 6 weeks and the importance of avoiding heavy lifting and activities that increase intra-abdominal pressure to prevent damage to repaired tissue. - Discussed the importance of maintaining a positive attitude and staying in touch with the surgical team for any questions or concerns. Patient Instructions: We discussed your upcoming gynecologic surgery: - We are planning to perform a total vaginal hysterectomy, with possible removal of both ovaries and fallopian tubes, and a cystoscopy to check your bladder and ureters at the end of the procedure. - Dr. Mortensen will assist with repairing and supporting the vaginal tissue, including repairs along the rectum, bladder, and sidewall. Her part of the surgery may require a longer recovery time than the hysterectomy itself. - We reviewed the risks of surgery, including bleeding, infection, and possible injury to surrounding tissues. You will receive antibiotics in your IV to help prevent infection. - You should use the chlorhexidine body wash as instructed the night before and the morning of surgery to help reduce infection risk. Instructions are included in your packet. - For the day before surgery, eat your normal meals, and follow the instructions provided for the carbohydrate drinks: one with lunch, one with dinner, and one on your way to the hospital the morning of surgery. Keep these drinks in the refrigerator. - You may experience light vaginal spotting for up to 6 weeks after surgery. Use thin pads as needed. If you have bleeding that looks like a period, call our office right away. - You may use a heating pad after surgery if you wish. - You will need to avoid heavy lifting and activities that increase abdominal pressure after surgery. Dr. Mortensen will discuss specific lifestyle changes and lifting restrictions with you at your appointment. We discussed your blood thinners: - Stop taking Eliquis 2 days before your surgery. - Resume Eliquis as soon as possible after surgery, as approved by your surgeon, typically the next day if there are no bleeding problems. We discussed your preoperative blood work: - You will have your blood work (magnesium, CMP, CBC, and type and screen) done after your pulmonology appointment on the , if you are cleared for surgery. We discussed your recent biopsy results: - Your biopsy showed a very limited amount of tissue with mild cytologic atypia, but no cancer cells were found. The tissue may be from the endometrium or cervix, but either way, it will be removed during your surgery. I will confirm these findings with Dr. Bonilla, the pathologist. Follow-up: - You have an appointment with the irrigation worker on , and an appointment with Dr. Mortensen on Monday. - You will have post-operative visits scheduled at 2 weeks and 6 weeks after your surgery. - The nurse will call you the day before surgery to confirm your arrival time.
[2025-05-30] MEDS: Magnesium 1 GM over 15 mins IV (11:15)
[2025-05-30 11:19] LABS: Hematocrit 39.4 % (37-47); Hemoglobin 13.1 g/dL (12.0-15.0); Mean Corp Hgb Conc 33.2 g/dL (32-36); Mean Corpuscular Volume 87.9 fL (81-99); Mean Platelet Vol. 11.6 fl (6.2-12.0); Platelet Count 215 K/mm3 (150-450); RBC Distribution Width CV 12.0 % (11.6-14.6); RBC Distribution Width SD 38.9 fl (35.1-43.9); Red Blood Count 4.48 M/mm3 (4.2-5.4); White Blood Count 6.4 K/mm3 (4.4-11.0)
[2025-05-30] MEDS: Lactated Ringers 1,000 ML 40 ML IV (11:19)
--- NOTE | 2025-05-30 11:22 | PCM.PRE.AN2 ---
ASA Classification* ASA Classification ASA Classification: 3 Assessment & Plan Anesthesia* Anesthesia Assessment Anesthesia Assessment: Discussed sedation and/or anesthesia options, risks, benefits, and alternatives with patient/parents/legal guardian/POA. Questions invited. The patient/parents/legal guardian/POA seems to understand and agrees to proceed with anesthesia plan. Reviewed the physical assessment, medical history, allergy history and patient home medications list prior to surgery/procedure/anesthetic and documented any changes. Performed airway and anesthesia risk assessments. Anesthesia Type Anesthesia Type: General History Source History Obtained from:: Patient and Chart Anesthesia Focused Assessment* Temperature: 97.4 F Pulse Rate: 40 Blood Pressure: 108/75 Respiratory Rate: 16 Pulse Ox: 100 Oxygen Delivery Method: Room Air Airway Assessment Mouth opens: >3 cm Mallampati Score: II Teeth Condition: Intact and Implants (upper and lower- intact) Neck Range of motion (ROM): Full ROM Labs Anesthesia Preop lab: CBC WBC, (4.4-11.0) 6.4 K/mm3 Today, 11:10 RBC, (4.2-5.4) 4.48 M/mm3 Today, 11:10 Hgb, (12.0-15.0) 13.1 g/dL Today, 11:10 Hct, (37-47) 39.4 % Today, 11:10 Plt Count, (150-450) 215 K/mm3 Today, 11:10 CHEMISTRY Potassium, (3.3-5.1) 4.0 mmol/L 05/23/25, 10:25 Sodium, (133-145) 134 mmol/L 05/23/25, 10:25 Magnesium, (1.5-2.2) 2.2 mg/dL 04/09/25, 09:12 BUN, (4-19) 28 mg/dL H 05/23/25, 10:25 Creatinine, (0.70-1.20) 0.86 mg/dL 05/23/25, 10:25 Glucose, (70-99) 79 mg/dL 05/23/25, 10:25 POC Glucose, (74-106) 100 mg/dL Today, 10:38 TSH, (0.300-4.200) 3.050 uIU/mL 04/09/25, 09:12 COAG PT, (11.7-14.9) 17.3 SECONDS H 08/04/22, 19:40 Pre-Assessment Diagnosis/Proposed Procedure Planned Operative Procedure(s): LAVH TOTAL POSS SALPINO-OOPHERECTOMY CYSTO PER DR CARDOZO BLADDER REPAIR WITH DR FLORES Anesthesia History Anesthesia History - skilled nursing facilities professional: Anesthesia History - skilled nursing facilities professional Hx Hospitalization No 05/22/25 14:31 Any Problems With Anesthesia No 05/22/25 14:31 Cholinesterase deficiency No 05/22/25 14:31 You/Your Family Experience No 05/22/25 14:31 fever (hyperthermia) with Relationship Recent Exposure to Contagious No 05/30/25 11:01 Disease Does patient have nerve No 05/22/25 14:31 stimulator Patient instructed to have device shut off --Does patient have Pacemaker No 05/30/25 11:01 or ICD? When Was Last Pacemaker Check QUESTION #4 FULL TEXT: You/Your Family Experience fever (hyperthermia) with Anesthesia Last Oral Intake Last Oral intake: Last Oral Intake NPO since 08:00 05/30/25 11:01 Meds taken in AM with sips of Yes 05/30/25 11:01 water? Meds patient instructed to omeprazole, sotalol 05/30/25 11:01 take am of surgery PONV PONV - skilled nursing facilities professional: PONV - skilled nursing facilities professional Female Yes 05/22/25 14:31 HX of Motion Sickness No 05/22/25 14:31 HX of N/V After Surgery No 05/22/25 14:31 Non-Smoker Yes 05/22/25 14:31 Duration of Surgery greater Yes 05/22/25 14:31 than 60 minutes Number of Risk Factors 3 05/22/25 14:31 PONV Score Moderate Risk 05/22/25 14:31 Height & Weight Height & Weight: Anesthesia: Height & Weight Height 5 ft 5 in 05/30/25 11:01 Weight: 108 kg 05/30/25 11:01 Body Mass Index (BMI) 39.6 05/30/25 11:01 Respiratory Assessment Respiratory Assessment - skilled nursing facilities professional: Respiratory Tract Infection Hx - skilled nursing facilities professional Hx Respiratory Tract Infection No 05/22/25 14:31 STOP Sleep Apnea STOP Sleep Apnea - skilled nursing facilities professional: STOP Sleep Apnea - skilled nursing facilities professional Hx Hypertension No 05/22/25 14:31 Hx Sleep Apnea Yes 05/22/25 14:31 CPAP No 05/22/25 14:31 BIPAP Yes 05/22/25 14:31 Do you snore loudly (louder than talking or can be heard Do you often feel tired/ fatigued/ sleepy during daytime? Has anyone observed you stop breathing during sleep? STOP Results Positive 05/22/25 14:31 QUESTION #5 FULL TEXT : Do you snore loudly (louder than talking or can be heard through closed doors)? Tobacco Use History Tobacco Use History - skilled nursing facilities professional: Tobacco Use History - skilled nursing facilities professional Tobacco Use Smoking Status Never smoker 05/22/25 14:31 Hx Tobacco Use No 05/22/25 14:31 Years Smoking Packs Smoked per Day Smoking Cessation Date was within the last 15 years Hx Smoking Cessation Date Hx Smoking Cessation Counseling Hematologic Medial History Hematologic Hx - skilled nursing facilities professional: Hematologic Medical Hx - director human services Hx of Blood Transfusion No 05/22/25 14:31 Hx of Transfusion in last 3 No 05/22/25 14:31 Months Date of Last Transfusion (if within last 3 months) Ever experience any problems No 05/22/25 14:31 with transfusion(s)? Specify any problems Hx of Preganancy in last 3 No 05/22/25 14:31 Months Nurse Filling Out Transfusion DSCHRIBER 05/22/25 14:31 & Questions: Date: 05/22/25 05/22/25 14:31 Time: 14:33 05/22/25 14:31 Patient unable to answer at this time (ie. confused, unrespo /Reproduction History /Reproductive History - skilled nursing facilities professional: /Reproductive Hx- skilled nursing facilities professional Hx Now No 05/22/25 14:31 Gestational Age (in weeks): EDC: Hx Hx Para Hx Section SAB No 05/22/25 14:31 Does the father of the baby or his family experience fever w Father of the baby Malignant Hypertension history comment Active Medications Active Medications: Current Medications Generic Name Dose Route Start Last Admin Trade Name Freq PRN Reason Stop Dose Admin Acetaminophen 1,000 mg 05/30/25 12:15 05/30/25 11:16 Acetaminophen 500 Mg Tablet PO 05/30/25 12:16 1,000 mg PREOP ONE Administration Gabapentin 600 mg 05/30/25 12:15 05/30/25 11:16 Gabapentin 600 Mg Tablet PO 05/30/25 12:16 600 mg PREOP ONE Administration Lactated Ringer's 1,000 mls @ 40 mls/hr 05/30/25 12:15 05/30/25 11:19 IV 40 mls/hr .Q25H KENTRELL Administration Clindamycin Phosphate 900 mg in 50 mls @ 75 mls/hr 05/30/25 12:15 Cleocin IV 05/30/25 12:54 INTRAOP ONE Gentamicin Sulfate 300 mg/ 57.5 mls @ 100 mls/hr 05/30/25 12:15 Dextrose IV 05/30/25 12:49 INTRAOP ONE Lactated Ringer's 1,000 mls @ 40 mls/hr 05/30/25 12:15 IV .Q25H KENTRELL Magnesium Sulfate 1 gm/ 102 mls @ 408 mls/hr 05/30/25 12:15 05/30/25 11:15 Dextrose IV 05/30/25 12:29 408 mls/hr PREOP ONE Administration Insulin Human Lispro 0 unit 05/30/25 12:15 Insulin Lispro 100 Unit/Ml Insuln.Pen SC 05/30/25 18:00 Q4H PRN PRN BG >/= 180, SEE PROTOCOL Protocol Ondansetron HCl 4 mg 05/30/25 12:15 Ondansetron 4 Mg/2 Ml Vial IV 05/30/25 12:16 INTRAOP ONE PFSH Medical History Urinary tract infection Uterovaginal prolapse, complete Incomplete bladder emptying Nocturia Vaginal atrophy Uterovaginal prolapse, incomplete Sludge in gallbladder Loss of hearing Arthritis Anemia Back pain Leg cramps History of edema History of pain when walking History of CHF (congestive heart failure) History of heart attack Wears glasses Post-menopausal Fibromyalgia Ambulates with cane High cholesterol Restless legs Non-smoker BiPAP (biphasic positive airway pressure) dependence History of Holter monitoring (~03/29/21) History of echocardiogram (~08/05/22) History of stress test (~12/10/20) Cardiology follow-up encounter (~11/15/22) History of cardioversion (~2022) Knee pain Hay fever Atrial fibrillation with rapid ventricular response Obesity GERD (gastroesophageal reflux disease) (12/28/20) Essential (primary) hypertension Hyperlipidemia Paroxysmal atrial fibrillation (10/2019) Home Medications ?Medication ?Instructions ?Recorded ?Last Taken ?Type multivitamin 1 tab PO DAILY vitamin 11/30/20 05/29/25 History ropinirole 1 mg tablet 3 mg PO QHS restless legs 11/30/20 05/29/25 History apixaban 5 mg tablet 5 mg PO BID blood thinner 12/02/20 05/27/25 20:00 History cetirizine 10 mg capsule (Zyrtec) 10 mg PO DAILY PRN Allergy Symptoms 09/27/21 Unknown History rosuvastatin 40 mg tablet 40 mg PO QHS CHOLESTEROL 12/27/22 05/29/25 History mecobalamin (vitamin B12) 5,000 5,000 mcg PO DAILY SUPPLEMENT 09/19/23 05/29/25 History mcg disintegrating tablet calcium citrate 500 mg PO TID SUPPLEMENT 01/09/24 05/29/25 History cholecalciferol (vitamin D3) 125 125 mcg PO DAILY SUPPLEMENT 01/09/24 05/29/25 History mcg (5,000 unit) tablet omeprazole 20 mg capsule,delayed 20 mg PO DAILY GERD 01/09/24 05/30/25 07:30 History release epinephrine 0.3 mg/0.3 mL 0.3 mg (0.3 mL) IM Q15M PRN 09/05/24 Unknown Rx injection, auto-injector (EpiPen anaphylaxis #2 ea 2-Neri) furosemide 40 mg tablet 40 mg PO QDAY diuectic #180 tabs 02/11/25 05/29/25 Rx estradiol 0.01% (0.1 mg/gram) 1 g vaginal 3XW 3 months #42.5 03/11/25 Unknown Rx vaginal cream grams sotalol 80 mg tablet 80 mg PO BID HEART RATE 30 days 03/26/25 05/30/25 07:30 Rx #180 tabs metformin 500 mg tablet 500 mg PO TID 04/09/25 05/29/25 History Allergy/AdvReac Type Severity Reaction Status Date / Time BLU Inhibitors Allergy Severe ANGIOEDEMA, Verified 05/30/25 10:44 hives and itching Penicillins Allergy Rash Verified 05/30/25 10:44 metoprolol AdvReac itching, Verified 05/30/25 10:44 fatigue, sob, leg edema Family History Mother Thyroid disorder Cancer Father Cancer Brother Diabetes Hypertension Heart disease Surgical History Hx of total knee arthroplasty Hx of colonoscopy S/P gastric sleeve procedure History of ovarian cystectomy (~1970) History of left heart catheterization (12/28/20) History of tonsillectomy and adenoidectomy (~1963) Social History adopted: No household members: spouse housing: house number of children: 2 current occupational status: retired current occupation: retired current occupational exposures/hazards: No pets and animals: Yes leisure activities: exercise and reading history of recent travel: No sexually active: Yes Smoking Status: Never smoker second hand exposure: No alcohol intake: former substance use type: does not use diet: other well-balanced diet: daily or most days caffeine: No eating out: rarely or never during the past year weight has: decreased > 10 lbs what type of physical activity do you participate in: swimming frequency: 3-4 times per week duration: 45-60 minutes/day henry/mu-ism: jain seatbelt use: always do you feel safe at home: Yes additional social history: - Jose Luis- Retired Review of Systems (Anesthesia) ROS Narrative System reviewed and no additional complaints, except as documented.
[2025-05-30] MEDS: Gentamicin 300 MG in Dextrose 5%-Water (50mL Bag) 50 ML 100 MG IV (11:24)
[2025-05-30] MEDS: Lactated Ringers 1,000 ML 1000 ML IV (11:38)
[2025-05-30] MEDS: Lidocaine 1% (5 ml sdv) 5 ML Vial IV (11:43)
--- NOTE | 2025-05-30 12:15 | UT_PTH ---
PATIENT: ELEN ARMAS LOC: MS3 U#:[id number] AGE/SX: 70/F ROOM: [facility] [place] RE05/30/[address]: Dr. Daria Hayden DO : 1955 BED: 1 DIS: 05/31/2025 SPEC #: [id number] RECD: 05/30/25 15:17 STATUS: ELSIE CHAVEZHeidi #: [id number] RELL: 05/30/25 12:[address]: Daria Hayden DEPT: SURGICAL PATHOLOGY RECD BY: Chucho Scott ENTERED: 05/30/25 15:32 SP TYPE: UTERUS OTHR DR: MD Dr. Walter Sanders MD Tissues: A - Uterus, NOS Procedures: Surgery Specimen Level V HEADER OPERATION: ERAS, total vaginal hysterectomy PRE-OP DIAGNOSIS: Thickened endometrium, uterovaginal prolapse, complete TISSUE SUBMITTED: A- Cervix, uterus MICROSCOPIC DIAGNOSIS A. Uterus, total vaginal hysterectomy: Cervix: Benign squamous epithelium and endocervical glandular tissue with endocervical cysts Endometrium: Inactive/atrophic endometrium with benign endometrial polyp(s) Myometrium: Focal adenomyosis MICROSCOPIC DESCRIPTION Slides are reviewed. GROSS DESCRIPTION A. Received in formalin labeled with the patient's name and date of . Designated as uterus, cervix is a 56.6 g, 8.3 x 3.4 x 3.4 cm uterus without attached adnexa. The serosa is pink-red and somewhat shaggy with loosely adherent blood clot. The attached cervix is kline-pink and slightly wrinkled, measuring 3.2 x 3.1 cm; the 0.6 cm os is probe patent and expelling blood-tinged mucoid material. Mucoid containing cysts are present. The specimen is oriented using the apparent posterior peritoneal reflection, but definitive orientation is difficult to determine grossly. The specimen is inked as follows: Xjuamwti-[id number]-orange Opening reveals a 5.9 x 2.2 cm endometrial canal lined by pale-kline, somewhat granular endometrium that measures up to 0.6 cm thick; the posterior endometrium appears focally cystic near the lower uterine segment. there is a 2.9 x 1.0 x 0.6 cm pink-red grossly superficial polyp comprising most of the posterior endometrial canal (fundus). The myometrium is kline-pink and measures up to 1.6 cm thick. Pipe Line Maintenance Supervisor sections are submitted as follows: A1: Anterior cervixA2: Posterior cervixA3: Anterior endomyometriumA4: Posterior endomyometrium, including cystic LUSA5-A6: Polyp SC 05/30/2025 CPT:82382
[2025-05-30] MEDS: fentaNYL 100 MCG/2 ML Ampul 200 MCG IV (12:23)
--- NOTE | 2025-05-30 12:48 | DCINST_ITS ---
Discharge Instructions Diet Discharge Diet: No restrictions Activity Discharge Activity: May Shower May resume sexual activity in: 8 weeks Weight Bearing Status: Weight bearing as tolerated Lifting Restrictions: 5 pounds Additional Activity Instructions:: No exercise, strenuous activity, walking dog, hot tubs, swimming, tub bathing Dressing / Incision Call your doctor if your incision/area has: Continuous Slow Oozing, Sudden Increased Bleeding, Increased Pain/ Swelling, Increased Redness and Foul Smelling Discharge Call your doctor if you observe: Fever of 101 or Higher, Inability to urinate, Inability to have a bowel movement, Shortness of breath, Chest pain, Calf discomfort and Uncontrolled pain Follow Up Care Please Follow Up With: Nevin Martell MD Test Results: Test results from this visit will be discussed in further detail at your follow- up appointment, if applicable. Discharge Plan Admission Admit Date/Time: 05/30/25 15:35 Primary Reason for Your Visit: hysterectomy and vaginal repair Attending Provider: Daria Hayden Primary Care Provider: Walter Mendez Consulting Providers: Nevin Martell Discharge Orders/Prescriptions Prescriptions: New oxycodone-acetaminophen 5-325 mg tablet 1 tab PO Q8H PRN (Reason: pain) 3 Days Qty: 10 0RF sulfamethoxazole-trimethoprim 800-160 mg tablet 1 tab PO BID 3 Days Qty: 6 0RF Continued apixaban 5 mg tablet 5 mg PO BID Zyrtec 10 mg capsule 10 mg PO DAILY PRN (Reason: Allergy Symptoms) omeprazole 20 mg capsule,delayed release(DR/EC) 20 mg PO DAILY rosuvastatin 40 mg tablet 40 mg PO QHS calcium citrate 250 mg calcium tablet 500 mg PO TID cholecalciferol (vitamin D3) 125 mcg (5,000 unit) tablet 125 mcg PO DAILY mecobalamin (vitamin B12) 5,000 mcg tablet,disintegrating 5,000 mcg PO DAILY furosemide 40 mg tablet 40 mg PO QDAY Qty: 180 3RF estradiol 0.01 % (0.1 mg/gram) cream 1 g vaginal 3XW 90 Days Qty: 42.5 3RF metformin 500 mg tablet 500 mg PO TID epinephrine [EpiPen 2-Neri] 0.3 mg/0.3 mL auto-injector 0.3 mg IM Q15M PRN (Reason: anaphylaxis) Qty: 2 0RF Rx Instructions: for 2 doses ropinirole 1 mg tablet 3 mg PO QHS multivitamin Tablet 1 tab PO DAILY sotalol 80 mg tablet 80 mg PO BID 30 Days Qty: 180 3RF Referrals / Follow Up: Walter Mendez MD [Primary Care Provider, Family Practice] Disposition Disposition (needs filled in before D/C Order can be placed): Home, Self Care
--- NOTE | 2025-05-30 12:52 | OP.PCM_ITS ---
Multi Select Codes Urology Urology Charge Forwarding-multi code: 96245 Cysto Bladder w/ Ureteral Catheterizaion, 09098 Repair Bladder & Rectum, 54211 Colpopexy Extraperiteoneal and 98957 Sling Operation Stress Incontinence Operative Report (Standard) Operative Information Date of Procedure: 05/30/25 Pre-Operative Diagnosis: Uterine prolapse, cystocele, rectocele, stress urinary incontinence Post-Operative Diagnosis: No cystocele Surgery/Procedure Performed: Posterior repair, bilateral sacrospinous ligament fixation with dermis, mid urethral sling, cystoscopy with bilateral ureteral catheterization obstetrics and gynecology professor: Yes Robotic Toy Inventor: Giuseppe Tabares Tasks completed by business services assistant: Retracting Type of Anesthesia: General RN Documented Start/Stop Times: Operation Date: 05/30/25 12:15 Case Time Into Pre-Op 05/30/25 10:08 Out of Pre-Op 05/30/25 11:35 Anesthesia Start 05/30/25 11:38 Into Room 05/30/25 11:38 Procedure Start 05/30/25 12:01 Procedure End 05/30/25 14:46 Anesthesia End 05/30/25 15:06 Out of Room 05/30/25 15:06 Into Recovery 05/30/25 15:10 Procedure Start Time: 13:25 Procedure Stop Time: 14:46 Select all DRAINS/GRAFTS/IMPLANTS that apply: Graft Graft details: Dermis, Altis mid urethral sling Estimated Blood Loss: 35 cc Specimen collected: No Description of surgery: The patient was taken to the operating room and placed on the operating room table. Anesthesia monitored the head, neck, airway, IV access and vital signs throughout the case. Once anesthesia was appropriately administered, the patient was prepped and draped in usual sterile fashion and an indwelling catheter was placed. Dr. Webster performed her portion of the procedure and closed the vaginal cuff. The Abbott balloon was deflated and the catheter removed. At this time it was determined that the cystocele was no longer present. The cystoscope was inserted through the urethra under direct visualization into the urinary bladder. The bladder mucosa revealed no evidence of mass, erythema, ulceration, injury, laceration or foreign body. Each ur eteral orifice was gently cannulated with a 5 Northern Irish whistle-tip catheter which advanced easily to 20 cm bilaterally without evidence of obstruction or injury. The cystoscope was removed and the Abbott catheter was reinserted. She was placed into Trendelenburg and exaggerated dorsal lithotomy position. Attention was turned towards the posterior vaginal wall where there was a very large rectocele present. The submucosa was injected with local anesthetic for hydrostatic dissection and a midline incision was made. Sharp and blunt dissection was performed very carefully secondary to prominent vascularity. Dissection continued up to the apex, and on the sides to the rectovaginal fascia. There was not much fascia identified. The sacrospinous ligaments were identified and freed from surrounding tissues very gently. Using the saffron device, access to the sacrospinous ligaments were obtained bilaterally with Ethibond sutures. A midline 2-0 Vicryl was used to secure the dermis and at the apex in full-thickness fashion. The Ethibond sutures were then placed through the dermis graft and were tied into position down to the sacrospinous ligaments effectively reducing the rectocele. The sutures were then brought through the vaginal wall in full-thickness fashion. The dermis was sutured to the rectovaginal fascia on each side with interrupted 2-0 Vicryl and down toward the perineal body as well. At this time the perineal body was reconstructed using interrupted sutures. The mucosal incision was closed with running interlocking 2-0 Vicryl. The mid urethra was then isolated and injected submucosally with lidocaine with epinephrine for hydrostatic dissection and hemostatic control. A midline incision was made and sharp and blunt dissection was performed on either side of the urethra with care being taken to avoid entrance into the urethra or the vaginal mucosa. Using the trocars provided, the Altis mid urethral sling was passed into the obturator complexes bilaterally with care taken to avoid entrance into the vaginal mucosa or the urethra. The sling was positioned flatly against the urethra and tension using the tensioning suture which was then cut. The incision was then closed with running interlocking 2-0 Vicryl. The patient was then placed into a flat supine position. The Abbott catheter was removed with deflation of the balloon. The cystoscope was inserted through the urethra revealing no evidence of foreign object or obstruction. The bladder mucosa was visualized in its entirety revealing no evidence of injury, laceration or foreign object. A large right ureteral jet was observed. The left ureter was gently cannulated with a 5 Northern Irish whistle-tip catheter which was advanced easily to 20 cm with no evidence of injury or obstruction. The cy stoscope was then removed and the Abbott catheter was reinserted. The vagina was packed with vaginal packing and estrogen cream. She was awakened and taken the recovery room in good condition. There were no complications during this procedure. Surgical Findings: Following hysterectomy, cystocele resolved with lots of rugae still remaining. Complications Complications: No Admit VTE Documentation VTE Present on Admission: Yes VTE Mechan Device Prophylaxis: SCD's VTE Pharm Prophylaxis ordered?: Yes
--- NOTE | 2025-05-30 13:00 | OP.PCM_ITS ---
Multi Select Codes Urinary/Genital Urinary/Genital CPT Codes: 22271 TVH <250 gr uterus Operative Report (Standard) Operative Information Date of Procedure: 05/30/25 Pre-Operative Diagnosis: uterine procidentia Post-Operative Diagnosis: uterine procidentia Surgery/Procedure Performed: vaginal hysterectomy remote sensing surveyor: Yes Precision Farming Specialist: Giuseppe Tabares Tasks completed by addictions counselor assistant: Retracting Additional assistant sales manager?: No Type of Anesthesia: General RN Documented Start/Stop Times: Operation Date: 05/30/25 12:15 Case Time Into Pre-Op 05/30/25 10:08 Out of Pre-Op 05/30/25 11:35 Anesthesia Start 05/30/25 11:38 Into Room 05/30/25 11:38 Procedure Start 05/30/25 12:01 Procedure Start Time: 12:01 Procedure Stop Time: 13:00 Select all DRAINS/GRAFTS/IMPLANTS that apply: None Estimated Blood Loss: 30cc Specimen collected: Yes Description of specimen(s) removed: uterus, cervix. Description of surgery: Patient was taken to the operating room and was placed under general anesthesia was prepped and draped in normal sterile fashion in the dorsal lithotomy position. Preoperative antibiotics and SCDs and Abbott catheter was placed inside the bladder. Weighted speculum was placed in the vagina and the anterior and posterior lip of the cervix was grasped with 2 Emily clamps and circumferentially injected with.25% marcaine. A circumferential incision was made with a scalpel and the posterior cul-de-sac was entered into sharply and a longneck speculum was placed. The anterior cul-de-sac was also dissected down and entered into sharply and the uterosacral ligaments were clamped cut and suture ligated bilaterally followed by the cardinal ligaments which were Clamped cut and suture ligated bilaterally with 0 Monocryl. The uterus serially descended and progressive bites were taken bilaterally up to the level of the utero-ovarian ligament bilaterally which was clamped transected and double ligated with 0 Monocryl suture and 0 Vicryl free tie. Bilateral fallopian tubes and ovaries were not well visualized . Excellent hemostasis was noted. Posterior peritoneum was reapproximated with 1-0 Vicryl. The vagina was closed with [id number] 0 Vicryl pop offs including the posterior and anterior peritoneum in the reapproximation. Excellent hemostasis was noted. All instruments removed from the vagina clear urine was noted at the end of the procedure and the next part of the procedure involving cystoscopy posterior repair, possible sling, and sacrospinous ligament fixation will be performed by on the separate dictation. Surgical Findings: complete prolapse of the uterus Complications Complications: No Admit VTE Documentation VTE Present on Admission: No VTE Mechan Device Prophylaxis: SCD's VTE Pharm Prophylaxis ordered?: Yes
--- NOTE | 2025-05-30 13:08 | PCM.DC ---
Discharge Instructions DC O2, CPAP, BIPAP needs Home O2 Discharge instructions: Yes Type of respiratory needs?: CPAP CPAP instructions: follow instructions from your music composition teacher Dressing / Incision Discharge Activity: May Not Drive (while taking narcotic pain medications.) and May Shower May resume sexual activity in: 8 weeks Weight Bearing Status: Weight bearing as tolerated Additional Activity Instructions:: No exercise, strenuous activity, walking dog, hot tubs, swimming, tub bathing Dressing / Incision Call your doctor if your incision/area has: Continuous Slow Oozing, Sudden Increased Bleeding, Increased Pain/ Swelling, Increased Redness and Foul Smelling Discharge Call your doctor if you observe: Fever of 101 or Higher, Inability to urinate, Inability to have a bowel movement, Shortness of breath, Chest pain, Calf discomfort and Uncontrolled pain Follow Up Care Please Follow Up With: Nevin Martell MD Test Results: Test results from this visit will be discussed in further detail at your follow-up appointment, if applicable. Please also follow up with Dr. Hayden in 2 weeks Discharge Plan Admission Primary Reason for Your Visit: hysterectomy and vaginal repair Attending Provider: Daria Hayden Primary Care Provider: Walter Mendez Consulting Providers: Nevin Martell Instructions Print Language: Slovak Discharge Orders/Prescriptions Prescriptions: New oxycodone-acetaminophen 5-325 mg tablet 1 tab PO Q8H PRN (Reason: pain) 3 Days Qty: 10 0RF sulfamethoxazole-trimethoprim 800-160 mg tablet 1 tab PO BID 3 Days Qty: 6 0RF Continued apixaban 5 mg tablet 5 mg PO BID Zyrtec 10 mg capsule 10 mg PO DAILY PRN (Reason: Allergy Symptoms) omeprazole 20 mg capsule,delayed release(DR/EC) 20 mg PO DAILY rosuvastatin 40 mg tablet 40 mg PO QHS calcium citrate 250 mg calcium tablet 500 mg PO TID cholecalciferol (vitamin D3) 125 mcg (5,000 unit) tablet 125 mcg PO DAILY mecobalamin (vitamin B12) 5,000 mcg tablet,disintegrating 5,000 mcg PO DAILY furosemide 40 mg tablet 40 mg PO QDAY Qty: 180 3RF estradiol 0.01 % (0.1 mg/gram) cream 1 g vaginal 3XW 90 Days Qty: 42.5 3RF metformin 500 mg tablet 500 mg PO TID epinephrine [EpiPen 2-Neri] 0.3 mg/0.3 mL auto-injector 0.3 mg IM Q15M PRN (Reason: anaphylaxis) Qty: 2 0RF Rx Instructions: for 2 doses ropinirole 1 mg tablet 3 mg PO QHS multivitamin Tablet 1 tab PO DAILY sotalol 80 mg tablet 80 mg PO BID 30 Days Qty: 180 3RF Referrals / Follow Up: Walter Mendez MD [Primary Care Provider, Family Practice] Disposition Disposition (needs filled in before D/C Order can be placed): Home, Self Care
[2025-05-30] MEDS: Lidocaine 1% /Epi 1:100 (20ml) 20 ML Vial (14:32)
--- NOTE | 2025-05-30 15:12 | PCM.POST.ANE ---
Anesthesia: Postop Eval I Current Vital Signs Temperature: 98 F Pulse Rate: 49 Blood Pressure: 128/70 Respiratory Rate: 14 Pulse Ox: 94 Oxygen Delivery Method: Room Air Assessment Airway patent: Yes Spontaneous unlabored respirations: Yes Mental status: Awake and Calm nausea: No Vomiting: No Anesthesia Complication: No Fluid Hydration Crystalloid volume administer (ml): 900 Total IV fluid infused: 900 Progress Note Anesthesia document: Postop Eval 1 completed: Yes
[2025-05-30] MEDS: Lactated Ringers 1,000 ML 100 ML IV (17:40)
[2025-05-30] MEDS: Smz/Tmp Ds Tablet 1 TABLET PO (17:54)
[2025-05-30 20:05] LABS: Hematocrit 36.5 % (37-47); Hemoglobin 12.3 g/dL (12.0-15.0); Immature Granulocytes Count 0.040 X10^3/uL (0.0-0.0); Mean Corp Hgb Conc 33.7 g/dL (32-36); Mean Corpuscular Volume 88.2 fL (81-99); Mean Platelet Vol. 11.9 fl (6.2-12.0); NRBC Flagged by Analyzer 0 % (0-5); Platelet Count 210 K/mm3 (150-450); RBC Distribution Width CV 11.9 % (11.6-14.6); RBC Distribution Width SD 38.6 fl (35.1-43.9); Red Blood Count 4.14 M/mm3 (4.2-5.4); White Blood Count 11.1 K/mm3 (4.4-11.0)
[2025-05-30 20:40] LABS: Anion Gap 13 (5-15); BUN 23 mg/dL (4-19); BUN/Creat Ratio 23.7 RATIO (10-20); Calcium,Total 9.4 mg/dL (7.6-11.0); Carbon Dioxide 22.1 mmol/L (21.0-32.0); Chloride 99 mmol/L (98-108); Estimated Creatinine Clearance 65.68 ml/min (50-250); Glucose 278 mg/dL (70-99); Potassium 4.2 mmol/L (3.3-5.1)
[2025-05-30] MEDS: Sotalol Hydrochloride 80 MG Tablet PO (22:04)
[2025-05-30] MEDS: APIXABAN 5 MG TABLET PO (22:04)
--- NOTE | 2025-05-31 01:24 | POSTOPAN2_ITS ---
Anesthesia Postop Eval I Sum Postop Eval Completion status Anesthesia document: Postop Eval 1 completed: Yes Anesthesia Postop Eval I Summary Anesthesia Postop Eval I Summary: Anesthesia Postop Eval I: Assessment Summary Airway patent Yes 05/30/25 15:13 SHANK CARRIER.MDOT Spontaneous unlabored Yes 05/30/25 15:13 SHANK CARRIER.MDOT respirations Mental status Awake,Calm 05/30/25 15:13 SHANK CARRIER.MDOT nausea No 05/30/25 15:13 SHANK CARRIER.MDOT Vomiting No 05/30/25 15:13 SHANK CARRIER.MDOT Anesthesia Postop Eval I: Fluid Summary Crystalloid volume administer 900 05/30/25 15:13 SHANK CARRIER.MDOT (ml) Colloids volume administered ( ml) Blood Product volume administered (ml) Total IV fluid infused 900 05/30/25 15:13 SHANK CARRIER.MDOT Anesthesia Postop Eval I: Summary Notes Anesthesia Complication No 05/30/25 15:13 SHANK CARRIER.MDOT Anesthesia Complication Comment: Post-operative progress note Anesthesia: Postop Eval II Evaluation Mental status: Awake and Calm Pain Level: 2 nausea: No Vomiting: No Complications Anesthesia Complication: No
--- NOTE | 2025-05-31 01:24 | PCM.POSTANE2 ---
Anesthesia Postop Eval I Sum Postop Eval Completion status Anesthesia document: Postop Eval 1 completed: Yes Anesthesia Postop Eval I Summary Anesthesia Postop Eval I Summary: Anesthesia Postop Eval I: Assessment Summary Airway patent Yes 05/30/25 15:13 ACCOUNT EXECUTIVE SALES REPRESENTATIVE.MDOT Spontaneous unlabored Yes 05/30/25 15:13 ACCOUNT EXECUTIVE SALES REPRESENTATIVE.MDOT respirations Mental status Awake,Calm 05/30/25 15:13 ACCOUNT EXECUTIVE SALES REPRESENTATIVE.MDOT nausea No 05/30/25 15:13 ACCOUNT EXECUTIVE SALES REPRESENTATIVE.MDOT Vomiting No 05/30/25 15:13 ACCOUNT EXECUTIVE SALES REPRESENTATIVE.MDOT Anesthesia Postop Eval I: Fluid Summary Crystalloid volume administer 900 05/30/25 15:13 ACCOUNT EXECUTIVE SALES REPRESENTATIVE.MDOT (ml) Colloids volume administered ( ml) Blood Product volume administered (ml) Total IV fluid infused 900 05/30/25 15:13 ACCOUNT EXECUTIVE SALES REPRESENTATIVE.MDOT Anesthesia Postop Eval I: Summary Notes Anesthesia Complication No 05/30/25 15:13 ACCOUNT EXECUTIVE SALES REPRESENTATIVE.MDOT Anesthesia Complication Comment: Post-operative progress note Anesthesia: Postop Eval II Evaluation Mental status: Awake and Calm Pain Level: 2 nausea: No Vomiting: No Complications Anesthesia Complication: No
[2025-05-31 01:25] VITALS: BP 107/51; PULSE 54; RESP 16; TEMP 36.3; O2SAT 96
[2025-05-31] MEDS: Lactated Ringers 1,000 ML 100 ML IV (03:46)
[2025-05-31 05:14] VITALS: BP 133/66; PULSE 52; RESP 16; TEMP 36.4; O2SAT 98
[2025-05-31 09:13] VITALS: BP 99/73; PULSE 58; RESP 18; TEMP 36.5; O2SAT 97
--- NOTE | 2025-05-31 09:21 | NURSING ---
in room with this RN and pt. Dr. Martell removed the cruz and then removed the vaginal packing. Measuring hat now in toilet for pt to urine and measure output.
--- NOTE | 2025-05-31 09:28 | PN.URO_ITS ---
Subjective Subjective Patient feels great this morning! She slept well, no significant issue with pain, nausea or vomiting. She is sitting up in the bedside chair and breakfast was consumed without issue. Objective Data Objective Data Vital Signs: Vital Signs Temp Pulse Resp BP Pulse Ox O2 Del Method O2 Flow Rate 97.7 F L 58 L 18 99/73 97 Room Air 4 05/31/25 09:13 05/31/25 09:13 05/31/25 09:13 05/31/25 09:13 05/31/25 09:13 05/31/25 09:13 05/30/25 16:45 Oxygen Flow Rate (L/min) 4 Oxygen Delivery Method Room Air Weight: 238 lb 1.588 oz Body Mass Index (BMI) 39.6 Intake & Output: Intake and Output for Last 24 Hours 05/29/25 05/30/25 05/31/25 23:59 23:59 23:59 Intake Total 532.83 / 532.83 1450 / 1450 Output Total 915 / 915 1000 / 1000 Balance -382.17 / -382.17 450 / 450 Lab / Micro Data 05/30/25 19:48 05/30/25 19:48 Labs: Laboratory Results - last 24 hr 05/30/25 10:38: POC Glucose 100 05/30/25 11:10: WBC 6.4, RBC 4.48, Hgb 13.1, Hct 39.4, MCV 87.9, MCH 29.2, MCHC 33.2, RDW Std Deviation 38.9, RDW Coeff of Nnamdi 12.0, Plt Count 215, MPV 11.6 05/30/25 19:48: WBC 11.1 H, RBC 4.14 L, Hgb 12.3, Hct 36.5 L, MCV 88.2, MCH 29.7, MCHC 33.7, RDW Std Deviation 38.6, RDW Coeff of Nnamdi 11.9, Plt Count 210, MPV 11.9, Immature Gran % (Auto) 0.400, Neut % (Auto) 89.5 H, Lymph % (Auto) 6.7 L, [place] % (Auto) 3.1, Eos % (Auto) 0.1, Baso % (Auto) 0.2, Absolute Neuts (auto) 10.0 H, Absolute Lymphs (auto) 0.75 L, Nucleated RBC % 0, Sodium 134, Potassium 4.2, Chloride 99, Carbon Dioxide 22.1, Anion Gap 13, BUN 23 H, Creatinine 0.96, Estim Creat Clear Calc 65.68, Est GFR (MDRD) Non-Af 63, BUN/Creatinine Ratio 23.7 H, Glucose 278 H, Calcium 9.4 Physical Exam Const alert, oriented x3 and no apparent distress Chest inspection of chest normal Chest: symmetrical chest wall rise Resp normal respiratory effort and normal air movement Cardio regular rate GI soft to palpation and non-tender Narrative: Urine in the catheter is clear yellow. The catheter was removed with deflation of the balloon without incident. Vaginal packing removed without complication. No evidence of significant bleeding. Extremity Extremity Narrative: SCDs in place Skin no rashes or lesions noted, no jaundice, no petechiae and no mottling Neuro oriented x3, CN's II-XII intact bilaterally and moves all extremities Psych mental status grossly normal Assessment & Plan Assessment/Plan (1) Rectocele, female: (2) Overflow stress urinary incontinence in female: PLAN: Plan Trial of void today Ambulate halls Await a.m. blood work Home later today
[2025-05-31 09:30] VITALS: PULSE 58
[2025-05-31] MEDS: Smz/Tmp Ds Tablet 1 TABLET PO (09:47)
[2025-05-31] MEDS: Sotalol Hydrochloride 80 MG Tablet PO (09:48)
[2025-05-31] MEDS: APIXABAN 5 MG TABLET PO (09:48)
[2025-05-31 10:03] LABS: Hematocrit 37.4 % (37-47); Hemoglobin 12.1 g/dL (12.0-15.0); Immature Granulocytes Count 0.060 X10^3/uL (0.0-0.0); Mean Corp Hgb Conc 32.4 g/dL (32-36); Mean Corpuscular Volume 90.3 fL (81-99); Mean Platelet Vol. 11.7 fl (6.2-12.0); NRBC Flagged by Analyzer 0 % (0-5); Platelet Count 234 K/mm3 (150-450); RBC Distribution Width CV 12.3 % (11.6-14.6); RBC Distribution Width SD 40.2 fl (35.1-43.9); Red Blood Count 4.14 M/mm3 (4.2-5.4); White Blood Count 13.9 K/mm3 (4.4-11.0)
[2025-05-31 10:37] LABS: Anion Gap 9 (5-15); BUN 15 mg/dL (4-19); BUN/Creat Ratio 16.3 RATIO (10-20); Calcium,Total 9.7 mg/dL (7.6-11.0); Carbon Dioxide 26.8 mmol/L (21.0-32.0); Chloride 99 mmol/L (98-108); Estimated Creatinine Clearance 68.53 ml/min (50-250); Glucose 124 mg/dL (70-99); Potassium 4.1 mmol/L (3.3-5.1)
--- NOTE | 2025-05-31 13:53 | NURSING ---
Pt attempted to void approximately an hr ago and only had a few drops. Pt is in the bathroom again and this RN saw close to 100cc in measuring hat. Pt feels she might be able to go some more. I told her I would let her try a bit longer and then I have to bladder scan her.
--- NOTE | 2025-05-31 14:19 | NURSING ---
Dr. Martell aware that pt voided 200cc and bladder scanned for 97cc. Also made aware WBC is 13.9 and HGB 12.1 today. Pt is okay to go home without catheter. okay for discharge
[2025-05-31 14:35] VITALS: BP 111/57; PULSE 48; RESP 16; TEMP 36.6; O2SAT 98
== END 2025-05-31 14:58 | disposition home or self-care (01) ==
LOC: SDC 15:36 → MS3 15:36
PROVIDERS: Urology; Admitting Provider Obstetrics & Gynecology; PCP Family Medicine; Referring Provider Obstetrics & Gynecology; Visit Provider Obstetrics & Gynecology
PROC: (CPT 58260; principal; 2025-05-30 11:55)
PROC: (CPT 57260; 2025-05-30 11:55)
DX: N81.3 Complete uterovaginal prolapse (principal); I11.0 Hypertensive heart disease with heart failure; I50.9 Heart failure, unspecified; I48.0 Paroxysmal atrial fibrillation; Z68.41 Body mass index [BMI] 40.0-44.9, adult; E78.00 Pure hypercholesterolemia, unspecified; R33.9 Retention of urine, unspecified; N39.3 Stress incontinence (female) (male); K21.9 Gastro-esophageal reflux disease without esophagitis; N39.0 Urinary tract infection, site not specified; Z79.01 Long term (current) use of anticoagulants; M79.7 Fibromyalgia; R35.1 Nocturia; Z79.899 Other long term (current) drug therapy; Z79.84 Long term (current) use of oral hypoglycemic drugs; E66.9 Obesity, unspecified; G47.33 Obstructive sleep apnea (adult) (pediatric); Z98.84 Bariatric surgery status; N84.0 Polyp of corpus uteri
CPT/HCPCS: 58260; 57288; 57282; 57260; 00944; 36415; 80048; 80053; 82962; 85025; 85027; 86850; 86900; 86901; 88307; 94668; 96360; 96361; 99221; C1762; C1771; C1758; G0378; J2405; J3475